=== PATIENT | male | born 1940 | race Caucasian/White ===

== ENCOUNTER 2019-10-16 00:04 | Inpatient (IN) | payer MEDICARE, OTHER ==
[~2019-10-16] VITALS: Ht 175.3 cm; Wt 76.3 kg
[~2019-10-16 00:04] MED LIST: ADVAIR 100-501 EACH INH; ASPIRIN EC325 MG PO; CRESTOR10 MG PO; METOPROLOL SUCC25 MG PO; OMEPRAZOLE20 MG PO; PROVENTIL HFA6.7 GM INH; SUDAFED 12 HOU120 MG PO
--- OUTSIDE RECORDS SUMMARY | 2019-10-16 00:08 | XMS ---
PreManage Notification: ROBBIE LARRY Security Code Clerk Events No recent Security Events currently on file CRITERIA MET - 6 ED Visits in 6 Months CARE PROVIDERS Matias Muñoz MD Primary Care Current PHONE: Unknown ormichele Case or Setter Helper Current PHONE: Unknown Radha has no Care Guidelines for this patient. EShannan VISIT COUNT (12 MO.) [facility] [address] [place] [address] ED 1 MEGAN Roper TOTAL 6 NOTE: Visits indicate total known visits. ED/UCC VISIT TRACKING (12 MO.) 10/16/2019 00:05 MEGAN Briseno TYPE: Emergency COMPLAINT: - HEADACHE/BALANCE ISSUES 08/11/2019 00:36 [facility] TYPE: Emergency DIAGNOSES: - Bradycardia, unspecified - Dizziness - Difficulty in walking, not elsewhere classified - Ataxia, unspecified - Weakness - Hypertension - Dizziness and giddiness 05/30/2019 21:03 [facility] TYPE: Emergency DIAGNOSES: - Paroxysmal tachycardia, unspecified - Acute kidney failure, unspecified - Shortness of Breath 05/29/2019 11:48 [facility] TYPE: Emergency DIAGNOSES: - Hypotension - Other specified postprocedural states - Abnormal levels of other serum enzymes - Polycythemia vera - Other fatigue - Tachycardia - Prsnl hx of TIA (TIA), and cereb infrc w/o resid deficits - Mixed hyperlipidemia - Personal history of other specified conditions - Essential (primary) hypertension - Athscl heart disease of [place] coronary artery w/o ang pctrs - Presence of aortocoronary bypass graft 05/28/2019 12:41 [facility] TYPE: Emergency DIAGNOSES: - Tachycardia - Acute kidney failure, unspecified - Hypotension - Supraventricular tachycardia 05/16/2019 12:11 Located within [facility] Oswaldo CARO TYPE: Emergency DIAGNOSES: - Slurred Speech - Dissection of vertebral artery - Facial weakness - Aneurysm of carotid artery - Cerebral infarction, unspecified - Facial Droop INPATIENT VISIT TRACKING (12 MO.) 05/30/2019 21:03 [facility] Ly[facility]ov CARO TYPE: Internal Medicine DIAGNOSES: - Tachycardia, unspecified - Acute kidney failure, unspecified - Atherosclerosis of CABG w/o angina pectoris - Paroxysmal tachycardia, unspecified [email or web address]
[2019-10-16] MEDS ORDERED: COZAAR50 MG PO (00:40)
[2019-10-16] MEDS ORDERED: LOPRESSOR HCT1 EAC1 PO (00:41)
[2019-10-16] MEDS ORDERED: EZETIMIBE10 MG PO (00:41)
[2019-10-16] MEDS ORDERED: CLOPIDOGREL75 MG PO (00:42)
[2019-10-16] MEDS ORDERED: ACID CONTROL150 MG PO (11:20)
--- NOTE | 2019-10-16 13:05 | EKG ---
[facility] [address] [facility] [place] [address] Signed Sinus bradycardia with 1st degree AV block Incomplete right bundle branch block Borderline ECG No previous ECGs available Confirmed by GIRISH SHAIKH DO ([id number]) on 10/16/2019 1:05:41 PM Electronically Signed By: GIRISH SHAIKH DO 10/16/19 1305 PATIENT NAME: ROBBIE LARRY Electrocardiogram DATE OF : 40 PHYSICIAN: GIRISH SHAIKH DO REPORT #: [id number] REPORT IS CONFIDENTIAL AND NOT TO BE RELEASED WITHOUT AUTHORIZATION
[2019-10-23] MEDS ORDERED: AMLODIPINE BESYL5 MG PO (13:46)
[2019-10-23] MEDS ORDERED: ZETIA10 MG PO (13:46)
[2019-10-23] MEDS ORDERED: ASPIRIN EC81 MG PO (13:47)
[2019-10-23] MEDS ORDERED: LOSARTAN POTAS100 MG PO (13:47)
[2019-10-23] MEDS ORDERED: DOK PLUS TABLE1 EACH PO (13:48)
[2019-10-23] MEDS ORDERED: HYDROCHLOROTHIA25 MG PO (13:48)
== END 2019-10-24 09:10 | DRG 66 ==
LOC: ED 00:04 → MS 00:06
PROVIDERS: ADMIT Student in an Organized Health Care Education/Training Program
DX: I63.9 Cerebral infarction, unspecified (principal); R27.0 Ataxia, unspecified; G46.3 Brain stem stroke syndrome; K21.9 Gastro-esophageal reflux disease without esophagitis; H51.22 Internuclear ophthalmoplegia, left eye; R29.700 NIHSS score 0; I10 Essential (primary) hypertension; E78.5 Hyperlipidemia, unspecified; R73.03 Prediabetes; I70.208 Unspecified atherosclerosis of native arteries of extremities, other extremity; R42 Dizziness and giddiness; H53.2 Diplopia; Z79.02 Long term (current) use of antithrombotics/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; Z88.0 Allergy status to penicillin; Z79.899 Other long term (current) drug therapy
CPT/HCPCS: 36415; 70450; 70496; 70498; 70551; 80048; 80053; 80061; 81001; 83036; 83735; 84484; 85025; 92526; 92610; 93005; 93010; 93306; 94667; 94668; 94762; 96361; 96374; 96375; 97110; 97112; 97163; 97166; 97530; 97535; 99285-25; J1200; J1650; J1885; J2060; J2765; J7040; J7121; Q0161; Q9967

== ENCOUNTER 2020-03-17 19:12 | Emergency (ER) | payer MEDICARE, OTHER ==
[~2020-03-17] VITALS: Ht 175.3 cm; Wt 76.3 kg
[~2020-03-17 19:12] MED LIST changes: +ACID CONTROL150 MG PO; +AMLODIPINE BESYL5 MG PO; +ASPIRIN EC81 MG PO; +CLOPIDOGREL75 MG PO; +COZAAR50 MG PO; +DOK PLUS TABLE1 EACH PO; +EZETIMIBE10 MG PO; +HYDROCHLOROTHIA25 MG PO; +LOPRESSOR HCT1 EAC1 PO; +LOSARTAN POTAS100 MG PO; +ZETIA10 MG PO
--- OUTSIDE RECORDS SUMMARY | 2020-03-17 19:14 | XMS ---
PreManage Notification: ROBBIE LARRY Security Dress Marker Events No recent Security Events currently on file CRITERIA MET - [facility] - Has Care Guidelines CARE PROVIDERS ERIKA BOO Internal Medicine: Pulmonary Disease 10/16/2019-Current PHONE: Unknown Radha has no Care Guidelines for this patient. Care History Medical/Surgical 10/16/2019 [facility] Patient admitted, has follow up with Dr. Meehan on 10/22/2019. 10/16/2019 [facility] - Patient is currently established with [facility]. If patient is seen in the ED during business hours. Please contact CHWs at [facility]. Care Recommendation: If this patient has had 5 or more Emergency Department visits in the last 12 months.\T\nbsp; Patient will require education on the scope and purpose of the ED as an acute care provider not a Primary Care Provider and should not be utilized for chronic conditions.\T\nbsp; These are guidelines and the provider should exercise clinical judgment when providing care. E.D. VISIT COUNT (12 MO.) [address] [place], [place] [address] 1 [facility] ED 2 MEGAN Ospina TOTAL 8 NOTE: Visits indicate total known visits. ED/UCC VISIT TRACKING (12 MO.) 03/17/2020 19:13 MEGAN Briseno TYPE: Emergency COMPLAINT: - HIGH BP 12/23/2019 16:15 [facility] TYPE: Emergency DIAGNOSES: 0. EMS DIZZINESS 10/16/2019 00:05 MEGAN Briseno TYPE: Emergency COMPLAINT: - HEADACHE/BALANCE ISSUES 08/11/2019 00:36 [facility] TYPE: Emergency DIAGNOSES: - Bradycardia, unspecified - Dizziness - Difficulty in walking, not elsewhere classified - Personal history of transient ischemic attack (TIA), and cere - Ataxia, unspecified - Weakness - Hypertension - Dizziness and giddiness - Hyperlipidemia, unspecified 05/30/2019 21:03 [facility] TYPE: Emergency DIAGNOSES: - Paroxysmal tachycardia, unspecified - Acute kidney failure, unspecified - Shortness of Breath 05/29/2019 11:48 [facility] TYPE: Emergency DIAGNOSES: - Hypotension - Other specified postprocedural states - Abnormal levels of other serum enzymes - Polycythemia vera - Other fatigue - Tachycardia - Personal history of transient ischemic attack (TIA), and cere - Mixed hyperlipidemia - Personal history of other specified conditions - Essential (primary) hypertension - Atherosclerotic heart disease of [place] coronary artery witho - Presence of aortocoronary bypass graft [facility]2019 [facility] DIAGNOSES: - Tachycardia - Acute kidney failure, unspecified - Hypotension - Supraventricular tachycardia 05/16/2019 12:11 [facility] Oswaldo CARO TYPE: Emergency DIAGNOSES: - Slurred Speech - Dissection of vertebral artery - Facial weakness - Aneurysm of carotid artery - Cerebral infarction, unspecified - Facial Droop INPATIENT VISIT TRACKING (12 MO.) 11/07/2019 13:12 [facility] TYPE: Surgery DIAGNOSES: 0. LAPAROSCOPIC G TUBE PLACEMENT CPT UNK FAILURE TO TH 0. 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 - Essential (primary) hypertension - Prediabetes - Ataxia, unspecified - Diplopia - Unspecified atherosclerosis of [place] arteries of extremities - Prediabetes - NIHSS score 0 - alf (current) use of antithrombotics/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 - Hyperlipidemia, unspecified - Hyperlipidemia, unspecified - Essential (primary) hypertension - Cerebral infarction, unspecified - NIHSS score 0 - Allergy status to penicillin - Brain stem stroke syndrome - Other retirement (current) drug therapy - Dizziness and giddiness - Allergy status to penicillin - Internuclear ophthalmoplegia, left eye - Brain stem stroke syndrome - Dizziness and giddiness 05/30/2019 21:03 [facility] Valerie CARO TYPE: Internal Medicine DIAGNOSES: - Tachycardia, unspecified - Acute kidney failure, unspecified - Atherosclerosis of coronary artery bypass graft(s) without an - Paroxysmal tachycardia, unspecified [email or web address]
[2020-03-17] MEDS ORDERED: METOPROLOL SUCC25 MG PO (19:52)
--- NOTE | 2020-03-18 07:15 | EKG ---
[facility] [address] [facility] [place] [address] Signed Sinus bradycardia with 1st degree AV block with premature atrial complexes Incomplete right bundle branch block Borderline ECG When compared with ECG of 16-OCT-2019 00:18, premature atrial complexes are now present Confirmed by BERNARD CORDON MD ([id number]) on 03/18/2020 7:15:09 AM Electronically Signed By: BERNARD CORDON MD 03/18/20 0715 PATIENT NAME: ROBBIE LARRY Electrocardiogram DATE OF : 40 PHYSICIAN: BERNARD CORDON MD REPORT #: [id number] REPORT IS CONFIDENTIAL AND NOT TO BE RELEASED WITHOUT AUTHORIZATION
== END 2020-03-17 22:08 | disposition home or self-care (01) ==
LOC: ED 19:12
DX: I10 Essential (primary) hypertension (principal); Z86.73 Personal history of transient ischemic attack (TIA), and cerebral infarction without residual deficits; Z88.0 Allergy status to penicillin; Z79.899 Other long term (current) drug therapy
CPT/HCPCS: 71045; 80053; 83735; 84484; 85025; 85610; 93005; 93010; 99284-25

== ENCOUNTER 2020-05-18 20:39 | Inpatient (IN) | payer MEDICARE, OTHER ==
[~2020-05-18] VITALS: Ht 175.3 cm; Wt 73.8 kg
--- NOTE | ~2020-05-18 | DS ---
[facility] [address], [place] [address] Draft ADMISSION DATE: 05/20/2020 DISCHARGE DATE: 05/21/2020 REASON FOR ADMISSION: Food obstruction of esophagus, dysphagia. HISTORY OF PRESENT ILLNESS: This 80-year-old white man suffered a stroke in the past year and underwent several months of rehab in [place], [place]. 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 He has a distant history of coronary artery bypass grafting as well as bilateral carotid endarterectomy in the past. His debility from the stroke was significant. He did have a PEG tube for enteral nutrition while in rehab. This was ultimately removed. The patient lives alone in [facility]; his is in a care facility due to advanced dementia, but he is well looked after by his son. The night before admission, he was eating, a TV dinner, mashed potatoes and chicken, and felt that the chicken was stuck. He tried to burp several times to bring the chicken out, but felt there was still some residual food in the esophagus. He presented to the emergency room, was evaluated by Dr. Rockwell approximately 8:40 p.m. He had coughed up a fair amount of phlegm, but did not have any hypersalivation. He was given a trial of a small amount of bread to eat, which he felt was stuck. I was then called and he was directly admitted to the hospital for further evaluation and care. As the patient did not have hypersalivation or distress, he was maintained primarily with IV hydration to allow for natural passage if possible. Notably, he had no prior complaints of dysphagia or reflux problems and no family history of esophageal cancer. He was admitted for further evaluation and care. PERTINENT PHYSICAL EXAM: GENERAL: Pleasant white man, who looks to be alert and oriented. He is not in distress. VITAL SIGNS: Temperature is 97.7, pulse 66, respirations 16, blood pressure 126/66, O2 saturations 95% on room air. NECK: Showed no thyromegaly or cervical adenopathy. There is no crepitus. Trachea is midline. There is no adenopathy. No hoarseness. CHEST: Shows normal respiratory excursion without tachypnea. He had a well-healed sternotomy incision. ABDOMEN: Soft and flat, easily palpable without mass. There is a small incision in left upper quadrant from prior gastrostomy tube. PATIENT NAME: ROBBIE LARRY DISCHARGE SUMMARY DATE OF : 40 REPORT #: [id number] PHYSICIAN: GERBER MENDOZA MD PCP: KI HERNANDEZ MD REPORT IS CONFIDENTIAL AND NOT TO BE RELEASED WITHOUT AUTHORIZATION [facility] [address], [place] [address] Draft LABORATORY DATA: White count was 6.1, hematocrit of 49.6, platelets 218,000. Chem profile normal. Creatinine slightly elevated 1.16. Liver enzymes normal. Albumin 4.2. Chest x-ray was normal. Sternotomy, sternal wires were noted to be of normal configuration. HOSPITAL COURSE: He was maintained with intravenous hydration and evaluated, and considered appropriate for upper endoscopy to assess if there was residual foreign body and if there was a neoplasm or stricture accounting for it. Upper endoscopy was performed, which in fact did show a hiatal hernia, but no other findings, specifically no stricture, no neoplasm, no Hernández's epithelium, and no findings to suggest eosinophilic esophagitis per se, though there was mild serration of the mid esophagus. Biopsies are pending. He was advanced to a liquid diet, which he tolerated well and a full liquid diet, which he also tolerated, but wished to have a turkey sandwich late in the evening. This was allowed and he had recurrent symptoms quite markedly. This included a feeling sensation of food being stuck in the region of the suprasternal notch area. He did not regurgitate any food, but had a residual sensation of possible retained food. With time, this passed without problem and with hydration. A video esophagram was performed the following morning, which did not show a stricture and did not show dysmotility per se. He was once again started on a full liquid diet, which he tolerated well. He was started on Protonix PPI medication as a hiatal hernia was noted at time of operation despite no stigmata of stricture proper. It is possible that he has a combination of reflux related esophageal spasm with underlying debility related to his medullary cerebrovascular accident in the past year. The possibility of the eosinophilic esophagitis contribute to his problem remains possible as the pathology is not yet known from biopsies. He was discharged to home to maintain a mechanical soft diet and avoid strictly of meat and bread for the time being. I will see him back in the office in about 3-4 weeks. At that point, we may initiate bread and meat and limited amounts assessing his clinical progress and tolerance of them. By then, reflux-related spasm will have had time to be controlled most likely with his PPI use. DISCHARGE MEDICATIONS: 1. Pantoprazole (Protonix) 40 mg p.o. daily. 2. Plavix 75 mg p.o. daily. 3. Zetia 10 mg p.o. at bedtime. 4. Aspirin enteric-coated 81 mg p.o. daily. 5. Metoprolol 25 mg p.o. daily. PATIENT NAME: ROBBIE LARRY DISCHARGE SUMMARY DATE OF : 40 REPORT #: [id number] PHYSICIAN: GERBER MENDOZA MD PCP: KI HERNANDEZ MD REPORT IS CONFIDENTIAL AND NOT TO BE RELEASED WITHOUT AUTHORIZATION [address] [address] Draft 6. Losartan 50 mg p.o. daily. 7. Fluticasone nasal allergy release spray as needed. DISCHARGE DIAGNOSES: 1. Food impaction of the esophagus without certain underlying etiology; no evidence of stricture, no sign of dysmotility on video esophagram, status post upper endoscopy with biopsy. 2. Cerebrovascular accident in September of 2019 including medullary focus of cerebrovascular accident, requiring rehabilitation at [place], [place]. 3. History of percutaneous endoscopic gastrostomy tube during convalescence (now removed). 4. Hypertension. 5. History of coronary artery bypass grafting. 6. History of bilateral carotid endarterectomy. 7. Hypertension. MD MINESH Ayobu/MODL /[id number] cc: Ki Hernandez MD Copies: KI HERNANDEZ MD ~ PATIENT NAME: ROBBIE LARRY DISCHARGE SUMMARY DATE OF : 40 REPORT #: [id number] PHYSICIAN: GERBER MENDOZA MD PCP: KI HERNANDEZ MD REPORT IS CONFIDENTIAL AND NOT TO BE RELEASED WITHOUT AUTHORIZATION
--- OUTSIDE RECORDS SUMMARY | ~2020-05-18 | XMS | Encounter Summary ---
Demographics + + + | Address | [address] | | | [place] [address] | + + + | Home Phone | | + + + | Preferred Language | Unknown | + + + | Marital Status | | + + + | Pentecostalism Affiliation | 1041 | + + + | Race | White | + + + | Ethnic Group | Not or | + + + Author + + + | Author | [facility] | | | and [place] | + + + | Organization | [facility] | | | and [place] | + + + | Address | Unknown | + + + | Phone | Unavailable | + + + Support + + + + + | Name | Relationship | Address | Phone | + + + + + | Tera Mccarthy | ECON | [place], [place] | | | | | [address] | | + + + + + | Alicia Mccarthy | ECON | [address] | | | | | [place] [address] | | + + + + + Care Team Providers + +------+ + | Care Hand Woven Carpet And Rug Mender Name | Role | Phone | + +------+ + | Brittany Meehan MD | PCP | | + +------+ + Reason for Visit +--------+--------+ + | Reason | Onset | Comments | | | Date | | +--------+--------+ + | Other | 05/09/ | Pt wanted to discuss medications | | | 2019 | | +--------+--------+ + Encounter Details +--------+ + + + + | Date | Type | Department | Care Team | Description | +--------+ + + + + | 05/09/ | Telephone | [facility] | Socorro Toney | Other (Pt wanted to | | 2019 | | CARDIOLOGY ANNA [place], Civilian Jail Officer | discuss medications | | | | [address] | | ) | | | | [place] | | | | | | [address] | | | | | | [phone] | | | +--------+ + + + + Social History + +-------+ +--------+------+ | Tobacco Use | Types | Packs/Day | Years | Date | | | | | Used | | + +-------+ +--------+------+ | Never Smoker | | | | | + +-------+ +--------+------+ + +------+---+---+ | Smokeless Tobacco: | Chew | | | | Former User | | | | + +------+---+---+ + + +---------+ + | Alcohol Use | Drinks/Week | oz/Week | Comments | + + +---------+ + | Not Currently | | | Alcoholic | | | | | Drinks/day: | | | | | occasionally | + + +---------+ + + + + | Sex Assigned at | Date Recorded | | | | + + + | Not on file | | + + + documented as of this encounter Functional Status + + + + | Functional Status | Response | Date of Assessment | + + + + | Are you deaf or do you have serious | No | 05/30/2019 | | difficulty hearing? | | | + + + + | Are you blind or do you have serious | No | 05/30/2019 | | difficulty seeing, even when wearing | | | | glasses? | | | + + + + | Do you have serious difficulty walking or | No | 05/30/2019 | | climbing stairs? (5 years old or older) | | | + + + + | Do you have difficulty dressing or bathing? | No | 05/30/2019 | | (5 years old or older) | | | + + + + | Because of a physical, mental, or emotional | No | 05/30/2019 | | condition, do you have difficulty doing | | | | errands alone such as visiting a doctor's | | | | office or shopping? [15 years old or | | | | older)] | | | + + + + + + + + | Cognitive Status | Response | Date of Assessment | + + + + | Because of a physical, mental, or emotional | No | 05/30/2019 | | condition, do you have serious difficulty | | | | concentrating, remembering, or making | | | | decisions? (5 years old or older) | | | + + + + documented as of this encounter Miscellaneous Notes Telephone Encounter - Socorro Toney, Civilian Jail Officer - 05/09/2020 10:[address] rodrigo that he is severely dizzy. He cannot hardly walk strait though his house sometimes because his dizziness is so bad. Pt denies any other symptoms of fever, cough, SOB, chest pains, congestion, palpitations. He said the only thing that is bugging him is the dizziness. Pt wanted to go over the medications and maybe have them adjusted if possible. Pt recently suffered a stroke and was unable to go take his BP for me at the time he was on the phone. Pt is wondering if someone like Connie Varela could call him and tell him what he should do bec ause Dr Yu is currently unavailable. I offered to schedule an apt for pend and the next opening is in Jun. Pt wanted to try [facility], and the next opening was not until late may. Pt is hoping to talk to Connie Varela over the phone instead of waiting for an apt. Pt had his medication bottles, and we went through his whole list. Medications are now accurate in the chart. Please advise. Thank you! (message sent to Connie Varela) JDW:RADIATOR MECHANIC-AAMA. [facility] umented in this encounter Plan of Treatment +--------+---------+ + + + | Date | Type | Specialty | Care Team | Description | +--------+---------+ + + + | 06/25/ | Office | Cardiology | Connie Alvarez | | | 2019 | Visit | | MICHAEL Varela [address] | | | | | | [address] | | | | | | [place] [address] | | | | | | [phone] | | | | | | | | +--------+---------+ + + + documented as of this encounter Visit Diagnoses Not on filedocumented in this encounter"
--- OUTSIDE RECORDS SUMMARY | ~2020-05-18 | XMS | Encounter Summary ---
Demographics + + + | Address | [address] | | | [place] [address] | + + + | Home Phone | | + + + | Preferred Language | Unknown | + + + | Marital Status | | + + + | Alevism Affiliation | 1041 | + + + | Race | White | + + + | Ethnic Group | Not or | + + + Author + + + | Author | [facility] | | | and [place] | + + + | Organization | [facility] | | | and [place] | + + + | Address | Unknown | + + + | Phone | Unavailable | + + + Support + + + + + | Name | Relationship | Address | Phone | + + + + + | Tera Mccarthy | ECON | [place], [place] | | | | | [address] | | + + + + + | Alicia Mccarthy | ECON | [address] | | | | | [place] [address] | | + + + + + Care Team Providers + +------+ + | Care Evaporator Supervisor Name | Role | Phone | + +------+ + PCP | Unavailable | + +------+ + Encounter Details +--------+ + + + + | Date | Type | Department | Care Team | Description | +--------+ + + + + | 07/22/ | Hospital | [facility] | Alexis Rai, | Cough | | 2008 | Encounter | CONVERSION DEP [address] | MD [address] | | | | [address] | [facility] [address] | | | | | [place], [place] | [place] [address] | | | | | [address] | [phone] | | | | | [phone] | | | +--------+ + + + + Social History + +-------+ +--------+------+ | Tobacco Use | Types | Packs/Day | Years | Date | | | | | Used | | + +-------+ +--------+------+ | Never Assessed | | | | | + +-------+ +--------+------+ + + + | Sex Assigned at | Date Recorded | | | | + + + | Not on file | | + + + documented as of this encounter Plan of Treatment +--------+---------+ + + + | Date | Type | Specialty | Care Team | Description | +--------+---------+ + + + | 06/25/ | Office | Cardiology | Connie Alvarez | | | 2019 | Visit | | MICHAEL Varela [address] | | | | | | [address] | | | | | | [place] [address] | | | | | | [phone] | | | | | | | | +--------+---------+ + + + documented as of this encounter Procedures + +--------+ + + + | Procedure Name | Priori | Date/Time | Associated Diagnosis | Comments | | | ty | | | | + +--------+ + + + | XR CHEST 2 VIEWS | Routin | 07/22/2009 | | Results for this | | | e | 12:31 PM | | procedure are in the | | | | PDT | | results section. | + +--------+ + + + documented in this encounter Results XR Chest 2 Vws (07/22/2009 12:31 PM PDT) + + | Specimen | + + | | + + + + + | Narrative | Performed At | + + + | [id number] | | | Page 1 RADIOLOGY | | | / | | | O/P [facility] | | | NAME: [place] [address] | | | | | | | | | DATE OF : 1940 ORDER NUMBER: [id number] | | | EXAM DATE/TIME: 07/22/2009 12:10 P ORDERING PHYSICIAN: CECELIA | | | ALEXIS ORDER DETAIL: 7000 / / GIORGIO EXAM DESCRIPTION: XR CHEST 2 | | | VIEW | | | | | | CHEST TWO VIEWS 07/22/2009 HISTORY Cough. COMPARISON Study | | | of 07/05/2009. FINDINGS The life support devices have been | | | removed and there is no evidence of a pneumothorax. The pleural | | | effusions have markedly improved. There is only a minimal amount of | | | residual pleural fluid noted on the lateral view. The bibasilar | | | atelectasis has resolved and there is minimal scarring in the left | | | lung base. The heart is normal in size and the sternal wires appear | | | intact. IMPRESSION Near-complete resolution of bibasilar | | | atelectasis and small pleural effusions with some residual scarring | | | in the left lung base. Read by KYLE JOSEPH MD | | | 07/22/2009 01:16 P Electronically Signed by KYLE JOSEPH MD | | | 07/23/2009 07:33 A P | | | 04:43 A [facility]/[id number]/ cc: MD KYLE SHAFFER | | | MD REECE JOSEPH MD | | + + + + + | Procedure Note | + + | Alfred Landry Conversion - 05/21/2019 2:58 AM PDT | | [id number] Page 1 | | RADIOLOGY / | | O/P | | [facility] NAME: [address] | | [place] [address] | | | | DATE OF : 1940 | | | | ORDER NUMBER: [id number] | | EXAM DATE/TIME: 07/22/2009 12:10 P | | ORDERING PHYSICIAN: ALEXIS RAI | | ORDER DETAIL: 7000 / / GIORGIO | | EXAM DESCRIPTION: XR CHEST 2 VIEW | | | | CHEST TWO VIEWS 07/22/2009 | | | | HISTORY | | Cough. | | | | COMPARISON | | Study of 07/05/2009. | | | | FINDINGS | | The life support devices have been removed and there is no evidence of a | | pneumothorax. The pleural effusions have markedly improved. There is | | only a minimal amount of residual pleural fluid noted on the lateral | | view. The bibasilar atelectasis has resolved and there is minimal | | scarring in the left lung base. The heart is normal in size and the | | sternal wires appear intact. | | | | IMPRESSION | | Near-complete resolution of bibasilar atelectasis and small pleural | | effusions with some residual scarring in the left lung base. | | | | | | Read by | | KYLE JOSEPH MD 07/22/2009 01:16 P | | Electronically Signed by | | KYLE JOSEPH MD 07/23/2009 07:33 A | | | | P | | A | | [facility]/[id number]/ | | cc: ALEXIS RAI MD | | KYLE JOSEPH MD | | REECE ELIZONDO MD | + + documented in this encounter Visit Diagnoses + + | Diagnosis | + + | Cough | + + documented in this encounter"
--- OUTSIDE RECORDS SUMMARY | ~2020-05-18 | XMS | Encounter Summary ---
Demographics + + + | Address | [address] | | | [place] [address] | + + + | Home Phone | | + + + | Preferred Language | Unknown | + + + | Marital Status | | + + + | Gnosticist Affiliation | 1041 | + + + | Race | White | + + + | Ethnic Group | Not or | + + + Author + + + | Author | [facility] | | | and [place] | + + + | Organization | [facility] | | | and [place] | + + + | Address | Unknown | + + + | Phone | Unavailable | + + + Support + + + + + | Name | Relationship | Address | Phone | + + + + + | Tera Mccarthy | ECON | [place] | | | | | [address] | | + + + + + | Alicia Mccarthy | ECON | [address] | | | | | [place] [address] | | + + + + + Care Team Providers + +------+ + | Care Psychologist Chief Name | Role | Phone | + +------+ + | Brittany Meehan MD | PCP | | + +------+ + Reason for Visit Auth/Cert +--------+--------+ + + + + | Status | Reason | Specialty | Diagnoses / | Referred By | Referred To | | | | | Procedures | Contact | Contact | +--------+--------+ + + + + | | | | Diagnoses | | Maryjo, | | | | | | | Cornel | | | | | Supraventric | | MD Viktor | | | | | vanessa | | [address] | | | | | jamal | | [address] | | | | | ([facility]) | | [place] | | | | | Procedures | | [id number] Phone: | | | | | CV EP | | [phone] | | | | | ABLATION SVT | | Fax: | | | | | | | [phone] | +--------+--------+ + + + + Encounter Details +--------+ + + + + | Date | Type | Department | Care Team | Description | +--------+ + + + + | 10/11/ | Anesthesia | [facility] | Marcelo Camacho MD | | | 2019 | Event | [facility] | [address] | | | | | LAB [address] | [place] [address] | | | | | [place], [place] | [phone] | | | | | [address] | | | | | | [phone] | | | +--------+ + + + + Anesthesia Record + + + + + | Procedure Name | Responsible | Anesthesia Start | Anesthesia Stop Time | | | Anesthesiologist | Time | | + + + + + | CV EP ABLATION SVT | Marcelo Camacho MD | 10/11/19 1416 | 10/11/19 1540 | | (N/A Heart) | | | | + + + + + +----+---+ + + | Da | T | Event | Comment | | te | i | | | | | m | | | | | e | | | +----+---+ + + | 01 | 1 | | | | /1 | 3 | | | | 6/ | 5 | | | | 20 | 4 | | | | 20 | | | | +----+---+ + + | | 1 | An Start | Reassessment prior to anesthesia induction/procedure. | | | 4 | | | | | 1 | | | | | 6 | | | +----+---+ + + | | 1 | First | | | | 4 | Inc/Proc St | | | | 2 | | | | | 1 | | | +----+---+ + + | | 1 | Quick Note | Procedure starts No x per Dr. Meraz | | | 4 | | | | | 2 | | | | | 1 | | | +----+---+ + + | | 1 | An Stop | Patient handed off to recovery nurse. | | | 4 | | | | | 0 | | | +----+---+ + + | | 1 | an stop | | | | 5 | data | | | | 4 | | | | | 2 | | | +----+---+ + + +------+ | Meds | +------+ + +--------+ | Name | Total | + +--------+ | midazolam 2 mg/mL | 2 mg | + +--------+ | atropine 0.1mg/mL | 1 mg | + +--------+ | isoproterenol (ISUPREL) 4 mcg/mL | 52 mcg | | in sodium chloride 0.9% 250 mL | | | infusion | | + +--------+ | metoprolol tartrate (LOPRESSOR) | 5 mg | | injection | | + +--------+ | sodium chloride 0.9% (NS) | 400 mL | | infusion | | + +--------+ + + | Name | + + | N2O Flow Rate (L/Min) | + + | O2 Flow Rate (L/Min) | + + | Insp O2 | + + | Exp N2O | + + | Air Flow Rate (L/Min) | + + + + | No blood administrations on file. | + + +--------+ + + + | Type | Details | Placement | Removal | +--------+ + + + | Periph | 10/11/19; 1346; Left; Anterior | 10/11/19 1346 by | 10/12/19 1010 by | | sherie | (palmar), Proximal; Forearm; | Rubén Gutierrez, | Bhanu Lara RN | | IV | [id number] catheter system; | RN | | | | 20 gauge; Hematology; no longer | | | | | indicated, catheter/device | | | | | intact, removed per | | | | | policy/procedure; 10/12/19; 1010 | | | +--------+ + + + | Venous | 10/11/19; 1423; 7 Fr.; Right; | 10/11/19 1423 by | 10/11/19 1534 by | | | Femoral; 10/11/19; 1534; Per | Maury Mendoza RN | Maury Mendoza RN | | Sheath | order; No complications | | | +--------+ + + + | Venous | 10/11/19; 1423; 6 Fr.; Left; | 10/11/19 1423 by | 10/11/19 1535 by | | | Femoral; Injectable; 10/11/19; | Maury Mendoza RN | Maury Mendoza RN | | Sheath | 1535; Per order; No complications | | | +--------+ + + + documented in this encounter Social History + +-------+ +--------+------+ | Tobacco [...] + + documented as of this encounter [place] Notes Anesthesia Postprocedure Evaluation - Marcelo Camacho MD - 10/11/2019 3:41 PM PST ANESTHESIA POSTANESTHESIA EVALUATION Simon Mccarthy 79 y.o. male 1940 [id number] Procedure(s) CV EP ABLATION SVT (N/A Heart) Cooperates? Yes Mental Status Performs simple tasks. Respiratory Satisfactory - Airway patent (self maintained). Cardiovascular Satisfactory - Blood pressure and heart rate acceptable Temperature Satisfactory Pain Satisfactory N/V Control Satisfactory Hydration Satisfactory - No signs of dehydration Adverse Events ADVERSE EVENTS: No adverse events Vitals Value Taken Time Temp Pulse 95 Resp 16 BP 149/78 Arterial Line BP Arterial Line BP 2 SpO2 Electronically signed by Doug Scott MD 10/11/2019 3:41 PM [facility] 3:4 2 PM PSTAnesthesia Preprocedure Evaluation - Marcelo Camacho MD - 10/11/2019 1:51 PM PSTFormatt ing of this note might be different from the original. ANESTHESIA PREANESTHESIA EVALUATION Simon Mccarthy 79 y.o. male 1940 [id number] Procedure(s): CV EP ABLATION SVT (N/A ) Medical,anesthesia, drug, allergy histories reviewed, NPO status verified. (-) perioperative beta-dixie/statin not given/taken, Review of Systems / Med History Anesthesia History No anesthesia complications except where noted below. (+) previous surgery or anesthesia. Family Anesthesia History Family Anesthesia Negative except where noted below. Cardiovascular Exercise tolerance >4 METS (+) history of heart murmur (+) hypertension (+) Dysrhythmias: (+) coronary artery disease (S/P CABG , doing well). (+) valvular problems/murmurs (+) PV D: . Pulmonary (+) asthma. Gastrointestinal/Hepatic (+) hypercholesterolemia. Renal (+) renal/ureteral stones. Endocrine Negative except where noted below. Hematology/Other Negative except where noted below. Neuromuscular Negative except where noted below. (+) CVA. Psychology Negative except where noted below. Physical Exam Airway MP II, TM >3 FB, Mouth opening >2 FB. Neck: full ROM, extends >30 degrees. Jaw protrus ion normal. CV Rhythm regular. Rate normal. (+) murmur. Pulm Clear to auscultation bilaterally. Neuro grossly normal. Anesthesia Plan ASA: 4 Type: MAC. Induction: Local anesthesia and intravenous. Potential problems: Other. Monitors: Standard ASA monitors. Postop Pain Management: Consent statement: Anesthetic plan, alternatives, risks and benefits discussed with patient. backache, drug re action, pain, perioperative CV events, respiratory events Consenting person understands and agrees to proceed. Discussed plan with attending. Electronically Signed by: Doug Scott MD ESi date/time: 10/11/2019 1:51 PM documented in this encount er Miscellaneous Notes Anesthesia Post-op Handoff - Marcelo Camacho MD - 10/11/2019 3:40 PM PSTFormatting of this not e might be different from the original. ANESTHESIA HANDOFF NOTE Simon Mccarthy 79 y.o. male 1940 [id number] CV EP ABLATION SVT (N/A Heart) HANDOFF NOTE Handoff Protocol Used: post-procedure handoff checklist completed The following were completed during the transfer of care: 1. Identification of patient 2. Identification of responsible practitioner (primary service) 3. Discussion of pertinent medical history 4. Discussion of the surgical/procedure course (procedure, reason for surgery, procedure pe rformed) 5. Intraoperative anesthetic management and issues/concerns 6. Expectations/plans for the early post-procedure period 7. Opportunity for questions and acknowledgement of understanding of report from receiving team Patient Location: Phase II Condition: awake Airway/O2: face mask with O2 The significant anesthesia concerns and VS in Epic were reviewed with the receiving team. Doug Scott MD 10/11/2019 3:40 PM [facility] 3:4 1 PM PSTdocumented in this encounter Plan of Treatment +--------+---------+ + + + | Date | Type | Specialty | Care Team | Description | +--------+---------+ + + + | 06/25/ | Office | Cardiology | Connie Alvarez | | | 2019 | Visit | | [address] | | | | | | [address] | | | | | | [place] [address] | | | | | | [phone] | | | | | | | | +--------+---------+ + + + documented as of this encounter Visit Diagnoses Not on filedocumented in this encounter Administered Medications + +--------+ +------+------+------+ | Medication Order | MAR | Action | Dose | Rate | Site | | | Action | Date | | | | + +--------+ +------+------+------+ | atropine 0.1 mg/mL syringe | Given | 10/11/19 | 1 mg | | | | Intravenous, PRN, Starting Sandra | | 20 2:38 | | | | | 10/11/19 at 1438, Anesthesia | | PM PST | | | | | Intra-op | | | | | | + +--------+ +------+------+------+ +---+---+ | | | +---+---+ + + + +---------+ +---+ | isoproterenol (ISUPREL) 4 | Restarte | 10/11/19 | 4 | 60 mL/hr | | | mcg/mL in sodium chloride 0.9% | d | 20 3:28 | mcg/min | | | | 250 mL infusion 0-10 mcg/min | | PM PST | | | | | (0-150 mL/hr), at 0-150 mL/hr, | | | | | | | Intravenous, TITRATED, Starting | | | | | | | Sandra 10/11/19 at 1500, Titration | | | | | | | Instruction: See below, Goal: HR | | | | | | | 60 and greater, Initial dose: 2 | | | | | | | mcg/min, Increase rate by: 1 | | | | | | | mcg/min every 15 minutes., | | | | | | | Decrease rate by: 1 mcg/min every | | | | | | | 15 minutes., *: Titrate drug per | | | | | | | order as tolerated. Titration | | | | | | | may vary based on the patient | | | | | | | | | | | | | | s critical condition. | | | | | | + + + +---------+ +---+ + + +---------+ +---+ | Restarted | 10/11/19 | 4 | 60 mL/hr | | | | 20 3:19 | mcg/min | | | | | PM PST | | | | + + +---------+ +---+ | Rate/Dose Change | 10/11/19 | 4 | 60 mL/hr | | | | 20 3:07 | mcg/min | | | | | PM PST | | | | + + +---------+ +---+ +---+---+ | | | +---+---+ + +-------+ +------+---+---+ | metoprolol tartrate (LOPRESSOR) | Given | 10/11/19 | 5 mg | | | | injection PRN, Starting Sandra | | 20 3:37 | | | | | 10/11/19 at 1537, Anesthesia | | PM PST | | | | | Intra-op | | | | | | + +-------+ +------+---+---+ +---+---+ | | | +---+---+ + +-------+ +------+---+---+ | midazolam (VERSED) 1 mg/mL | Given | 10/11/19 | 2 mg | | | | injection Intravenous, PRN, | | 20 2:16 | | | | | Starting Sandra 10/11/19 at 1416, | | PM PST | | | | | Anesthesia Intra-op | | | | | | + +-------+ +------+---+---+ +---+---+ | | | +---+---+ + +---------+ +---+---+---+ | sodium chloride 0.9% (NS) | New Bag | 10/11/19 | | | | | infusion at 10 mL/hr, | | 20 2:16 | | | | | Intravenous, CONTINUOUS, Starting | | PM PST | | | | | Sandra 10/11/19 at 1345, Pre-op | | | | | | + +---------+ +---+---+---+ +---+---+ | | | +---+---+ documented in this encounter"
--- OUTSIDE RECORDS SUMMARY | ~2020-05-18 | XMS | Encounter Summary ---
Demographics + + + | Address | [address] | | | [place] [address] | + + + | Home Phone | | + + + | Preferred Language | Unknown | + + + | Marital Status | | + + + | Sabianism Affiliation | 1041 | + + + | Race | White | + + + | Ethnic Group | Not or | + + + Author + + + | Author | [facility] | | | and [place] | + + + | Organization | [facility] | | | and [place] | + + + | Address | Unknown | + + + | Phone | Unavailable | + + + Support + + + + + | Name | Relationship | Address | Phone | + + + + + | Tera Mccarthy | ECON | [place], [place] | | | | | [address] | | + + + + + | Alicia Mccarthy | ECON | [address] | | | | | [place] [address] | | + + + + + Care Team Providers + +------+ + | Care Coil Machine Operator Name | Role | Phone | + +------+ + PCP | Unavailable | + +------+ + Encounter Details +--------+ + + + + | Date | Type | Department | Care Team | Description | +--------+ + + + + | 08/24/ | Hospital | [facility] | Viktor Crisostomo | | | 2004 | Encounter | MED CTR GENERIC OP | MD [place] | | | | | CONV DEPT [address] | [place], [place] | | | | | [place], | [address] | | | | | [place] [address] | | | | | | [phone] | | | +--------+ + + + [...] [address] | | | | | | [place] [address] | | | | | | [phone] | | | | | | | | +--------+---------+ + + + documented as of this encounter Visit Diagnoses Not on filedocumented in this encounter"
--- OUTSIDE RECORDS SUMMARY | ~2020-05-18 | XMS | Encounter Summary ---
Demographics + + + | Address | [address] | | | [place] [address] | + + + | Home Phone | | + + + | Preferred Language | Unknown | + + + | Marital Status | | + + + | Evangelical Affiliation | 1041 | + + + | Race | White | + + + | Ethnic Group | Not or | + + + Author + + + | Author | [facility] | | | and [place] | + + + | Organization | [facility] | | | and [place] | + + + | Address | Unknown | + + + | Phone | Unavailable | + + + Support + + + + + | Name | Relationship | Address | Phone | + + + + + | Tera Mccarthy | ECON | [place] | | | | | [address] | | + + + + + | Alicia Mccarthy | ECON | [address] | | | | | [place] [address] | | + + + + + Care Team Providers + +------+ + | Care Finance Analyst Name | Role | Phone | + +------+ + | Matias Muñoz MD | PCP | | + +------+ + Reason for Visit + + + | Reason | Comments | + + + | Follow-up | | + + + Encounter Details +--------+---------+ + + + | Date | Type | Department | Care Team | Description | +--------+---------+ + + + | 07/13/ | Office | [facility] | Lio Mendez, | Bronchiectasis (HCC) | | 2012 | Visit | PULMONARY [address] | MD [address] | (Primary Dx); | | | | [place], | [place], [place] | Chronic cough | | | | [place] [address] | [address] | | | | | [phone] | | | +--------+---------+ + + + Social History + +-------+ +--------+------+ | Tobacco Use | Types | Packs/Day | Years | Date | | | | | Used | | + +-------+ +--------+------+ | Never Smoker | | | | | + +-------+ +--------+------+ + +---+---+---+ | Smokeless Tobacco: | | | | | Former User | | | | + +---+---+---+ + + +---------+ + | Alcohol Use | Drinks/Week | oz/Week | Comments | + + +---------+ + | Yes | | | socially, monthy | + + +---------+ + + + + | Sex Assigned at | Date Recorded | | | | + + + | Not on file | | + + + documented as of this encounter Last Filed Vital Signs + + + + + | Vital Sign | Reading | Time Taken | Comments | + + + + + | Blood Pressure | 122/76 | 07/13/2013 3:22 PM | | | | | PDT | | + + + + + | Pulse | 64 | 07/13/2013 3:22 PM | | | | | PDT | | + + + + + | Temperature | - | - | | + + + + + | Respiratory Rate | - | - | | + + + + + | Oxygen Saturation | 97% | 07/13/2013 3:22 PM | | | | | PDT | | + + + + + | Inhaled Oxygen | - | - | | | Concentration | | | | + + + + + | Weight | 79.8 kg (176 lb) | 07/13/2013 3:22 PM | | | | | PDT | | + + + + + | Height | 175.3 cm (5' 9") | 07/13/2013 3:22 PM | | | | | PDT | | + + + + + | Body Mass Index | 25.99 | 07/13/2013 3:22 PM | | | | | PDT | | + + + + + documented in this encounter Patient Instructions Patient Instructions Lio Mendez MD - 07/13/2013 4:06 PM PDTTrial of azithromycin o delroy 5 days. documented in this encounter Progress Notes Lio Mendez MD - 07/13/2013 3:51 PM PDTFormatting of this note might be different f rom the original. Pulmonary Follow Up 07/13/2013 HPI Simon Mccarthy is a 73 y.o. male patient of Matias Muñoz here today for follow up of chronic cough. It has been 6 weeks since our last clinic appointment. At their last visit, we established a plan to perform a Chest CT. Since the last visit he feels like their symptoms are stable. They have have not had any recent episodes of "bronchitis-like symptoms". To treat their chronic cough they are currently on a regimen of Advair. They do feel like this medication regimen is working for them. They do not report the presence of side effects from the medication(s). Currently they are able to walk many miles at their own pace on level ground. They are not exercising regularly. 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 They are not enrolled in cardiac/ pulmonary rehabilitation or other physical therapy. He does cough chronically, and does produce mucous. The mucous is scant and clear in color. They have not had hemoptysis since our last appointment. He has not been evaluated for nocturnal oxygen. He does not had symptoms of heartburn or reflux. They have not had symptoms of nasal conges tion, runny nose or post nasal drip. The patient reports a prior history of transient improvement of his symptoms following anti biotics. 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 Sinusitis Chronic Renal stone Benign essential hypertension ASHD (arteriosclerotic heart disease) Ventricular pre-excitation Nasal and sinus discharge Sciatica Hyperlipidemia Trigeminy Myalgia s/p lovastatin + meningitis Atherosclerosis Glucose intolerance (impaired glucose tolerance) CAD (coronary artery disease) Bronchiectasis Mild , lower lobes Allergies: Allergies Allergen Reactions Penicillins Medications: Current outpatient prescriptions:albuterol (VENTOLIN HFA) 90 mcg/puff inhaler, Active, Inha le 2 puffs into the lungs every 6 hours as needed., Disp: , Rfl: ; aspirin 325 mg tablet, A ctive, Take 325 mg by mouth Daily., Disp: , Rfl: ; azithromycin (ZITHROMAX) 250 mg tablet, Active, Take 1 tablet by mouth Daily for 5 days. 2 tabs now, then 1 tab daily until gone, Di sp: 6 tablet, Rfl: 0 fluticasone-salmeterol (ADVAIR) 100-50 mcg/puff diskus inhaler, Active, Inhale 1 puff into the lungs Twice Daily., Disp: , Rfl: ; lovastatin (MEVACOR) 10 MG tablet, Active, Take 10 m g by mouth nightly., Disp: , Rfl: ; metoprolol tartrate (LOPRESSOR) 25 mg tablet, Active, T roxana by mouth. Take 1/2 tablet daily, Disp: , Rfl: ; omeprazole (PRILOSEC) 10 mg capsule, A ctive, Take 20 mg by mouth every morning (before breakfast)., Disp: , Rfl: Review of Systems Constitutional: Denies fever, chills, sweats, fatigue or weakness. Sleep: Denies trouble sleeping, excessive snoring, and daytime sleepiness. Eyes: Denies vision change, and eye irritation. ENT: Denies earache, tinnitus, decreased hearing, nosebleeds, sore throat, and hoarseness. Resp: See HPI. CV: Denies neck/chest/jaw pain with exertion, palpitations, lightheadedness, syncope, orth opnea, PND, peripheral edema, and claudication. GI: Denies trouble swallowing, nausea, vomiting, abdominal pain, diarrhea, melena, and he matochezia. Neurologic: Denies frequent headaches, seizures, tremors, numbness or tingling in hands or feet or vertigo. Allergy Denies urticaria or allergic rashes. Objective BP 122/76 | Pulse 64 | Ht 1.753 m (5' 9") | Wt 79.833 kg (176 lb) | BMI 25.99 kg/m2 | SpO2 97% Appearance: Alert, cooperative, no distress, appears stated age Head: Normocephalic, without obvious abnormality, atraumatic Eyes: PERRL, conjunctiva/corneas clear Nose: Nares normal, septum midline, mucosa normal, no drainage or sinus tenderness Throat: Lips, mucosa, and tongue normal; teeth/dentures normal Neck: Supple, symmetrical, no JVD Lungs: No accessory muscle use, breath sounds are clear to auscultation bilaterally, no w heezes, No crackles or rhonchi. No dullness to percussion. Chest Wall: No tenderness or deformity Heart: Regular rate and rhythm, S1, S2 normal, no murmur, rub or gallop Extremities: Extremities normal, atraumatic, no cyanosis, clubbing. none and no edema Skin: Warm and dry Lymph nodes: Cervical and supraclavicular nodes normal Neurologic: Gait normal Data: Chest CT scan(s) was done on 07/13/13. They were reviewed and interpreted in clinic today with the patient . They show small nodular densities with a diffuse pattern. 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 Lastly the patient has bilateral lower lung zone bronchiectasis. Assessment 1. Chronic cough-Simon is a 73-year-old male with a long-standing chronic cough. In the past component of the patient's cough is been thought to be secondary to cough variant asth ma. Today a CT scan of the chest was performed to further investigate potential etiologies. Ev idence of mild by basilar bronchiectasis was noted. The patient's acid reflux is currently well controlled. Given the newly discovered bronchiectasis without purulent sputum production it seems reaso nable to initiate a trial of azithromycin. If his cough symptoms were to decrease one could consider 3 times a week azithromycin for treatment of a chronic cough secondary bronchiecta sis. Told duration the patient's clinic appointment was in excess of 30 minutes. Greater than 5 0% of the time was spent discussing bronchiectasis management. Plan 1. Azithromycin over 5 days. 2. Patient will return for followup on July 27, the same day of his 's followup rory ointment. A decision regarding the use of chronic azithromycin will occur at that time. CC: Matias Muñoz documented in this encounter Plan of Treatment +--------+---------+ + + + | Date | Type | Specialty | Care Team | Description | +--------+---------+ + + + | 06/25/ | Office | Cardiology | Connie Alvarez | | | 2020 | Visit | | [address] | | | | | | [address] | | | | | | [place] [address] | | | | | | [phone] | | | | | | | | +--------+---------+ + + + documented as of this encounter Visit Diagnoses + + | Diagnosis | + + | Bronchiectasis (HCC) - Primary Bronchiectasis without acute exacerbation | + + | Chronic cough Cough | + + documented in this encounter
--- OUTSIDE RECORDS SUMMARY | ~2020-05-18 | XMS | Encounter Summary ---
Demographics + + + | Address | [address] | | | [place] [address] | + + + | Home Phone | | + + + | Preferred Language | Unknown | + + + | Marital Status | | + + + | Hinduism Affiliation | 1041 | + + + | Race | White | + + + | Ethnic Group | Not or | + + + Author + + + | Author | [facility] | | | and [place] | + + + | Organization | [facility] | | | and [place] | + + + | Address | Unknown | + + + | Phone | Unavailable | + + + Support + + + + + | Name | Relationship | Address | Phone | + + + + + | Tera Mccarthy | ECON | [place], [place] | | | | | [address] | | + + + + + | Alicia Mccarthy | ECON | [address] | | | | | [place] [address] | | + + + + + Care Team Providers + +------+ + | Care Disease Case Manager Rn Name | Role | Phone | + +------+ + | Matias Muñzo MD | PCP | | + +------+ + Encounter Details +--------+ + + + + | Date | Type | Department | Care Team | Description | +--------+ + + + + | 06/25/ | Orders Only | [facility] | Nasir Lim, | | | 2014 | | CARDIOLOGY [place] | [address] | | | | | [place] [address] | [place] [address] | | | | | [place], [place] | [phone] | | | | | [address] | | | | | | [phone] | | | +--------+ + + + [...] [address] | | | | | | [place] [address] | | | | | | [phone] | | | | | | | | +--------+---------+ + + + documented as of this encounter Procedures + +--------+ + + + | Procedure Name | Priori | Date/Time | Associated Diagnosis | Comments | | | ty | | | | + +--------+ + + + | VAS CAROTID DUPLEX | Routin | 06/25/2015 | | Results for this | | BILATERAL | e | 11:36 AM | | procedure are in the | | | | PDT | | results section. | + +--------+ + + + documented in this encounter Results VAS Carotid Duplex Bilateral (06/25/2015 11:36 AM PDT) + + | Specimen | + + | | + + + + + | Impressions | Performed At | + + + | 1. Minimal intimal thickening in right internal carotid artery. S/P | | | CEA. 2. Minimal intimal thickening in left internal carotid artery. | | | S/P CEA. | | + + + + + + | Narrative | Performed At | + + + | Patient Name: ROBBIE MCCARTHY Date of : 1940 | | | Performing Physician: Nasir Lim MD, | | | FACC, FACP, FASNC | | | | | | INDICATIONS Bilateral CEA CONCLUSIONS | | | 1. Minimal intimal thickening in right internal carotid artery. S/P | | | CEA. 2. Minimal intimal thickening in left internal carotid artery. | | | S/P CEA. FINDINGS -------- Right CCA: The right common carotid | | | artery is patent and demonstrates mild atherosclerotic plaque in the | | | common carotid artery corresponding with a 1-49% right common carotid | | | stenosis. Right ICA: Minimal intimal thickening in right internal | | | carotid artery. Right ECA: The right external carotid artery is | | | patent with 1-49% stenosis. Right Vertebral: The right vertebral | | | artery demonstrates antegrade flow. Right Subclavian Artery: Doppler | | | window filling within the right subclavian artery waveform suggests | | | 1-19% stenosis. Left CCA: The left common carotid artery | | | demonstrates mild atherosclerotic plaque in the common carotid | | | artery corresponding with 1-49% stenosis Left ICA: Minimal intimal | | | thickening in left internal carotid artery. Left ECA: Minimal intimal | | | thickening in the left external carotid artery. Left Vertebral: The | | | left vertebral artery demonstrates antegrade flow. Left Subclavian | | | Artery: Doppler window filling within the left subclavian artery | | | waveform suggests 1-19% stenosis. MEASUREMENTS | | | CCA AC: 58 deg CCA AC: 49 deg CCA ED: 22.53 cm/s CCA ED: | | | 13.45 cm/s CCA ED: 11.58 cm/s CCA ED: 9.62 cm/s CCA PS: | | | 111.33 cm/s CCA PS: 82.75 cm/s CCA PS: 65.83 cm/s CCA PS: | | | 78.92 cm/s ICA/CCA ED: 0.86 ICA/CCA ED: 1.51 ICA/CCA PS: | | | 0.46 ICA/CCA PS: 0.84 ECA AC: 45 deg ECA AC: 41 deg ECA | | | ED: 11.10 cm/s ECA ED: 13.19 cm/s ECA PS: 63.72 cm/s ECA | | | PS: 90.32 cm/s ICA AC: 55 deg ICA AC: 29 deg ICA AC: 29 | | | deg ICA AC: 54 deg ICA AC: 49 deg ICA AC: 54 deg ICA ED: | | | 19.39 cm/s ICA ED: 20.07 cm/s ICA ED: 17.07 cm/s ICA ED: | | | 20.37 cm/s ICA ED: 9.35 cm/s ICA ED: 10.22 cm/s ICA PS: | | | 52.03 cm/s ICA PS: 59.40 cm/s ICA PS: 47.17 cm/s ICA PS: | | | 70.03 cm/s ICA PS: 24.64 cm/s ICA PS: 51.87 cm/s SUBC PS: | | | 133.79 cm/s SUBC PS: 114.61 cm/s VERT ED: 12.09 cm/s VERT ED: | | | 6.03 cm/s VERT PS: 46.88 cm/s VERT PS: 19.89 cm/s | | | Heating Equipment Repairer: Authenticated by: Nasir Lim MD, FACC, FACP, | | | FASNC Report Date/Time: -- [id number] | | + + + + + | Procedure Note | + + | Frantz, Rad Conversion - 05/17/2019 9:34 PM PDT Patient Name: ROBBIE MCCARTHY | | of : 1940 Performing Physician: Nasir Lim MD, [facility], | | FACP, | | FASNC INDICATIONS--------- | | --Bilateral CEA CONCLUSIONS 1. Minimal intimal thickening in right internal | | carotid artery. S/P CEA.2. Minimal intimal thickening in left internal carotid artery. | | S/P CEA. FINDINGS--------Right CCA: The right common carotid artery is patent and | | demonstrates mild atherosclerotic plaque in the common carotid artery corresponding with | | a 1-49% right common carotid stenosis.Right ICA: Minimal intimal thickening in right | | internal carotid artery.Right ECA: The right external carotid artery is patent with | | 1-49% stenosis.Right Vertebral: The right vertebral artery demonstrates antegrade | | flow.Right Subclavian Artery: Doppler window filling within the right subclavian artery | | waveform suggests 1-19% stenosis.Left CCA: The left common carotid artery | | demonstrates mild atherosclerotic plaque in the common carotid artery corresponding with | | 1-49% stenosisLeft ICA: Minimal intimal thickening in left internal carotid artery.Left | | ECA: Minimal intimal thickening in the left external carotid artery.Left Vertebral: The | | left vertebral artery demonstrates antegrade flow.Left Subclavian Artery: Doppler | | window filling within the left subclavian artery waveform suggests 1-19% stenosis. | | MEASUREMENTS CCA AC: 58 degCCA AC: 49 degCCA ED: 22.53 cm/sCCA ED: | | 13.45 cm/sCCA ED: 11.58 cm/sCCA ED: 9.62 cm/sCCA PS: 111.33 cm/sCCA PS: 82.75 | | cm/sCCA PS: 65.83 cm/sCCA PS: 78.92 cm/Jim/CCA ED: 0.86ICA/CCA ED: 1.51ICA/CCA | | PS: 0.46ICA/CCA PS: 0.84ECA AC: 45 degECA AC: 41 degECA ED: 11.10 cm/sECA ED: | | 13.19 cm/sECA PS: 63.72 cm/sECA PS: 90.32 cm/Jim AC: 55 degICA AC: 29 degICA | | AC: 29 degICA AC: 54 degICA AC: 49 degICA AC: 54 degICA ED: 19.39 cm/Jim ED: | | 20.07 cm/Jim ED: 17.07 cm/Jim ED: 20.37 cm/Jim ED: 9.35 cm/Jim ED: 10.22 | | cm/Jim PS: 52.03 cm/Jim PS: 59.40 cm/Jim PS: 47.17 cm/Jim PS: 70.03 cm/Jim | | PS: 24.64 cm/Jim PS: 51.87 cm/sSUBC PS: 133.79 cm/sSUBC PS: 114.61 cm/sVERT ED: | | 12.09 cm/sVERT ED: 6.03 cm/sVERT PS: 46.88 cm/sVERT PS: 19.89 cm/s Heating Equipment Repairer: | | DHAuthenticated by: Nasir Lim MD, FACC, FACP, FASNCReport Date/Time: -- | | [id number] IMPRESSION: 1. Minimal intimal thickening in right internal | | carotid artery. S/P CEA.2. Minimal intimal thickening in left internal carotid artery. | | S/P CEA. | |CCA AC: 58 deg | |CCA AC: 49 deg | |CCA ED: 22.53 cm/s | |CCA ED: 13.45 cm/s | |CCA ED: 11.58 cm/s | |CCA ED: 9.62 cm/s | |CCA PS: 111.33 cm/s | |CCA PS: 82.75 cm/s | |CCA PS: 65.83 cm/s | |CCA PS: 78.92 cm/s | |ICA/CCA ED: 0.86 | |ICA/CCA ED: 1.51 | |ICA/CCA PS: 0.46 | |ICA/CCA PS: 0.84 | |ECA AC: 45 deg | |ECA AC: 41 deg | |ECA ED: 11.10 cm/s | |ECA ED: 13.19 cm/s | |ECA PS: 63.72 cm/s | |ECA PS: 90.32 cm/s | |ICA AC: 55 deg | |ICA AC: 29 deg | |ICA AC: 29 deg | |ICA AC: 54 deg | |ICA AC: 49 deg | |ICA AC: 54 deg | |ICA ED: 19.39 cm/s | |ICA ED: 20.07 cm/s | |ICA ED: 17.07 cm/s | |ICA ED: 20.37 cm/s | |ICA ED: 9.35 cm/s | |ICA ED: 10.22 cm/s | |ICA PS: 52.03 cm/s | |ICA PS: 59.40 cm/s | |ICA PS: 47.17 cm/s | |ICA PS: 70.03 cm/s | |ICA PS: 24.64 cm/s | |ICA PS: 51.87 cm/s | |SUBC PS: 133.79 cm/s | |SUBC PS: 114.61 cm/s | |VERT ED: 12.09 cm/s | |VERT ED: 6.03 cm/s | |VERT PS: 46.88 cm/s | |VERT PS: 19.89 cm/s | | | |Heating Equipment Repairer: | |Authenticated by: Nasir Lim MD, FACC, FACP, [facility] | |Report Date/Time: -- [id number]:42 | | | |IMPRESSION: | |1. Minimal intimal thickening in right internal carotid artery. S/P CEA. | |2. Minimal intimal thickening in left internal carotid artery. S/P CEA. | + + documented in this encounter Visit Diagnoses Not on filedocumented in this encounter"
--- OUTSIDE RECORDS SUMMARY | ~2020-05-18 | XMS | Encounter Summary ---
Demographics + + + | Address | [address] | | | [place] [address] | + + + | Home Phone | | + + + | Preferred Language | Unknown | + + + | Marital Status | | + + + | Christianity Affiliation | 1041 | + + + | Race | White | + + + | Ethnic Group | Not or | + + + Author + + + | Author | [facility] | | | and [place] | + + + | Organization | [facility] | | | and [place] | + + + | Address | Unknown | + + + | Phone | Unavailable | + + + Support + + + + + | Name | Relationship | Address | Phone | + + + + + | Tera Mccarthy | ECON | [place], [place] | | | | | [address] | | + + + + + | Alicia Mccarthy | ECON | [address] | | | | | [place] [address] | | + + + + + Care Team Providers + +------+ + | Care Applied Technologist Name | Role | Phone | + +------+ + | Brittany Meehan MD | PCP | | + +------+ + Reason for Visit + +--------+ + | Reason | Onset | Comments | | | Date | | + +--------+ + | Medication Reaction | 09/24/ | | | | 2018 | | + +--------+ + Encounter Details +--------+ + + + + | Date | Type | Department | Care Team | Description | +--------+ + + + + | 09/24/ | Telephone | [facility] | Erica Schneider, | Medication Reaction | | 2018 | | CARDIOLOGY [place] | [facility] | | | | | [address] | | | | | [facility] [place] | | | | | | [address] | | | | | | [phone] | | | +--------+ + + + [...] this encounter Miscellaneous Notes Telephone Encounter - Erica Schneider CMA - 09/24/2019 10:00 AM PSTLeft vm asking for ca ll back. ----- Message from Nasir Lim MD sent at 09/23/2019 12:00 PM PST ----- Dicontinue drug ----- Message ----- From: Erica Schneider CMA Sent: 09/21/2019 9:44 AM PST To: Nasir Lim MD, Shannan Yu, Patient called and stated that he thinks zetia is causing dizziness again, he stated yester day he felt like he couldn't walk by himself he was so dizzy. documented in this encounter Plan of Treatment +--------+---------+ + + + | Date | Type | Specialty | Care Team | Description | +--------+---------+ + + + | 06/25/ | Office | Cardiology | Connie Alvarez | | | 2019 | Visit | | [address] | | | | | | [address] | | | | | | [place] [address] | | | | | | [phone] | | | | | | | | +--------+---------+ + + + documented as of this encounter Visit Diagnoses Not on filedocumented in this encounter"
--- OUTSIDE RECORDS SUMMARY | ~2020-05-18 | XMS | Encounter Summary ---
Demographics + + + | Address | [address] | | | [place] [address] | + + + | Home Phone | | + + + | Preferred Language | Unknown | + + + | Marital Status | | + + + | Restorationist Affiliation | 1041 | + + + | Race | White | + + + | Ethnic Group | Not or | + + + Author + + + | Author | [facility] | | | and [place] | + + + | Organization | [facility] | | | and [place] | + + + | Address | Unknown | + + + | Phone | Unavailable | + + + Support + + + + + | Name | Relationship | Address | Phone | + + + + + | Tera Mccarthy | ECON | [place] | | | | | [address] | | + + + + + | Alicia Mccarthy | ECON | [address] | | | | | [place] [address] | | + + + + + Care Team Providers + +------+ + | Care Financial Center Manager Name | Role | Phone | + +------+ + | Matias Muñoz MD | PCP | | + +------+ + Reason for Referral Diagnostic/Screening (Routine) +--------+--------+ + + + + | Status | Reason | Specialty | Diagnoses / | Referred By | Referred To | | | | | Procedures | Contact | Contact | +--------+--------+ + + + + | Closed | | Radiology | Diagnoses | Mendez, | [address] | | | | | Cough | MD Lio | [address] | | | | | Procedures | [address] | [place], | | | | | CT Chest wo | [address] | [place] [address] | | | | | Contrast | [place], | Phone: | | | | | | [place] [address] | [phone] | | | | | | Phone: | Fax: | | | | | | [phone] | [phone] | | | | | | Fax: | | | | | | | [phone] | | +--------+--------+ + + + + Encounter Details +--------+ + + + + | Date | Type | Department | Care Team | Description | +--------+ + + + + | 07/13/ | Hospital | [facility] | Lio Mendez, | Cough | | 2012 | Encounter | MED CTR XRAY [address] | MD [address] | | | | | [address] [place] | [place], [place] | | | | | [place] [address] | [address] | | | | | [phone] | | | +--------+ + + + [...] + + documented as of this encounter Medications at Time of Discharge + + + +---------+ + + | Medication | Sig | Dispensed | Refills | Start | End Date | | | | | | Date | | + + + +---------+ + + | albuterol | Inhale 2 puffs into | | 0 | | | | (VENTOLIN HFA) 90 | the lungs every 6 | | | | 9 | | mcg/puff inhaler | hours as needed. | | | | | + + + +---------+ + + | aspirin 325 mg | Take 325 mg by mouth | | 0 | | | | tablet | Daily. | | | | 9 | + + + +---------+ + + | azithromycin | Take 1 tablet by | 6 | 0 | 07/13/20 | | | (ZITHROMAX) 250 mg | mouth Daily for 5 | tablet | | 13 | 3 | | tabletIndications: | days. 2 tabs now, | | | | | | Bronchiectasis (HCC) | then 1 tab daily | | | | | | | until gone | | | | | + + + +---------+ + + | | Inhale 1 puff into | | 0 | | | | fluticasone-salmeter | the lungs Twice | | | | 9 | | ol (ADVAIR) 100-50 | Daily. | | | | | | mcg/puff diskus | | | | | | | inhaler | | | | | | + + + +---------+ + + | lovastatin | Take 10 mg by mouth | | 0 | | | | (MEVACOR) 10 MG | nightly. | | | | 9 | | tablet | | | | | | + + + +---------+ + + | metoprolol | Take by mouth. Take | | 0 | | | | tartrate (LOPRESSOR) | 1/2 tablet daily | | | | 9 | | 25 mg tablet | | | | | | + + + +---------+ + + | omeprazole | Take 20 mg by mouth | | 0 | | | | (PRILOSEC) 10 mg | every morning | | | | 9 | | capsule | (before breakfast). | | | | | + + + +---------+ + + documented as of this encounter [...] [address] | | | | | | [place] [address] | | | | | | [phone] | | | | | | | | +--------+---------+ + + + documented as of this encounter Procedures + +--------+ + + + | Procedure Name | Priori | Date/Time | Associated Diagnosis | Comments | | | ty | | | | + +--------+ + + + | CT CHEST WO CONTRAST | Routin | 07/13/2013 | Cough | Results for this | | | e | 3:30 PM | | procedure are in the | | | | PDT | | results section. | + +--------+ + + + | CT SINUS WO CONTRAST | Routin | 07/13/2013 | | Results for this | | LIMITED | e | 3:15 PM | | procedure are in the | | | | PDT | | results section. | + +--------+ + + + documented in this encounter Results CT Chest wo Contrast (07/13/2013 3:30 PM PDT) + + | Specimen | + + | | + + + + + | Narrative | Performed At | + + + | [facility] | [facility] | | Department [address] [facility], [place] | [facility] | | [ [address]] [ rep [facility] | | st zip] Signed | - IMAGING | | | | | Patient Name: SIMON MCCARTHY Physician: | | | ALBERTO. : 1940 Age: 73 Sex: M Unit #: [id number] | | | Exam Date: 07/13/13 Location: [facility] | | | Report #: [id number] Page: | | | %(RAD)RES..mtdd.print.filter("pg") of %(RAD) | | | RES..mtdd.print.filter("tpg") | | | | | | Accession Number: [id number] | | | CT CHEST WITHOUT CONTRAST, 07/13/2013 COMPARISON: Chest | | | x-ray dated 04/03/2013. PROTOCOL: Axial CT images of the | | | chest without IV contrast. Reconstruction views were obtained. | | | FINDINGS: Neck base is normal. Heart is of normal | | | size. Moderate coronary calcifications are visualized. Some | | | anterior hardware is seen, likely related to previous CABG surgery. | | | There is mild to moderate atherosclerosis of the aorta with mild | | | extension into the branches. The ascending thoracic aorta is | | | ectatic measuring 4.2 cm in AP dimension. The pulmonary arteries and | | | superior vena cava are unremarkable. No enlarged lymph | | | nodes are observed of the mediastinum or susan. Some small benign | | | appearing lymph nodes are present in the axilla. The trachea and | | | esophagus demonstrate no acute findings. Several | | | noncalcified nodules are observed of the bilateral lungs. The | | | largest measuring 0.4 cm are in the right upper lobe (image 39) and | | | in the left lower lobe (image 92). Multiple tiny calcified lymph | | | nodules are observed of the bilateral lungs as well, likely related to | | | previous granulomatous disease. There is a metallic | | | shrapnel in the superior left pectoralis muscle (image 1). | | | Sternotomy wires are observed, likely from previous CABG surgery. | | | There is mild to moderate dextroscoliosis of the thoracic spine. | | | Mild spondylosis is noted. Mild disk height loss is noted at | | | multiple levels of the mid thoracic spine with associated vacuum | | | phenomenon. There is a low attenuation structure in the | | | posterior right liver lobe that measures 2.7 cm and could represent | | | either a hemangioma or cyst. IMPRESSION: 1. | | | NO ACUTE FINDINGS IN THE CHEST. 2. MULTIPLE NODULES OF | | | THE BILATERAL LUNGS MEASURING UP TO 0.4 CM. FOR A LOW-RISK PATIENT, | | | NO FOLLOWUP IS NEEDED. FOR A HIGH-RISK PATIENT, A FOLLOWUP CT SCAN | | | IS RECOMMENDED IN 12 MONTHS. 3. 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 4. ECTASIA OF ASCENDING THORACIC AORTA THAT | | | MEASURES UP TO 4.2 CM IN AP DIMENSION. 5. 2.0 CM LOW | | | ATTENUATION STRUCTURE IN THE POSTERIOR ASPECT OF RIGHT LIVER LOBE THAT | | | COULD EITHER REPRESENT A HEMANGIOMA OR CYST. 6. | | | EVIDENCE FOR PREVIOUS CABG SURGERY. 7. METALLIC FOCUS IN | | | LEFT PECTORALIS MUSCLE THAT COULD REPRESENT SHRAPNEL. | | | Dictated Date/Time: 07/13/2013 15:30 Transcribed Date/Time: | | | 07/13/2013 16:26 Senior Quality Manager: | | | <<Signature on File>> | | | Michael | | | MD Leoncio07/13/13 1636 <Electronically signed by Michael Fang MD> | | | Michael Fang MD 07/13/13 8890 Senior Quality Manager: [employer] | | | [id number]/18/13 1626 Lio Mendez MD | | | | | + + + + + + + + | Performing | Address | City[facility] | Phone Number | | Organization | | | | + + + + + | [facility] | [address] | [place], [place] | [phone] | | [facility] | | [address] | | | - IMAGING | | | | + + + + + CT Sinus WO Contrast Limited (07/13/2013 3:15 PM PDT) + + | Specimen | + + | | + + + + + | Narrative | Performed At | + + + | [facility] | [facility] | | Department [address] , [place] | [facility] | | [ rep [address]] [ rep ct [facility] | | st zip] Signed | - IMAGING | | | | | Patient Name: SIMON MCCARTHY Physician: | | | [birth year] : 1940 Age: 73 Sex: M Unit #: [id number] | | | Exam Date: 07/13/13 Location: 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 COMPARISON: None. | | | PROTOCOL: Thin section axial CT images of the paranasal | | | sinuses with reconstruction views. FINDINGS: Limited | | | evaluation of the brain demonstrates no acute findings. Orbits are | | | unremarkable. Visualized mastoids are clear. Skull base | | | structures are unremarkable. There is dental hardware. | | | The frontal sinuses are clear. There has been previous | | | ethmoidectomy. The ethmoid sinuses and sphenoid sinuses are clear. | | | There is a septation in the right maxillary sinus, which is | | | otherwise clear. Moderate mucosal thickening is observed in the | | | inferior aspect of the left maxillary sinus. There is mild mucosal | | | thickening along the lateral aspect of the left maxillary sinus. | | | The bilateral osteomeatal complexes are patent. | | | IMPRESSION: 1. EVIDENCE FOR PREVIOUS ETHMOIDECTOMY. | | | 2. MILD AND MODERATE MUCOSAL THICKENING OF THE LEFT | | | MAXILLARY SINUS. 3. BILATERAL OSTEOMEATAL COMPLEXES ARE | | | PATENT. Dictated Date/Time: 07/13/2013 15:15 | | | Transcribed Date/Time: 07/13/2013 16:08 Senior Quality Manager: | | | <<Signature on File>> | | | Michael | | | MD Leoncio07/13/13 1636 <Electronically signed by Michael Fang MD> | | | Michael Fang MD 07/13/13 5605 Senior Quality Manager: [employer] | | | [id number]/18/13 1608 Matias Muñoz MD | | + + + + + + + + | Performing | Address | City/State/Zipcode | Phone Number | | Organization | | | | + + + + + | [facility] | [address] | [place] | [phone] | | [facility] | | [address] | | | - IMAGING | | | | + + + + + documented in this encounter Visit Diagnoses + + | Diagnosis | + + | Cough | + + documented in this encounter
--- OUTSIDE RECORDS SUMMARY | ~2020-05-18 | XMS | Encounter Summary ---
Demographics + + + | Address | [address] | | | [place] [address] | + + + | Home Phone | | + + + | Preferred Language | Unknown | + + + | Marital Status | | + + + | Orthodox Affiliation | 1041 | + + + | Race | White | + + + | Ethnic Group | Not or | + + + Author + + + | Author | [facility] | | | and [place] | + + + | Organization | [facility] | | | and [place] | + + + | Address | Unknown | + + + | Phone | Unavailable | + + + Support + + + + + | Name | Relationship | Address | Phone | + + + + + | Tera Mccarthy | ECON | [place] | | | | | [address] | | + + + + + | Alicia Mccarthy | ECON | [address] | | | | | [place] [address] | | + + + + + Care Team Providers + +------+ + | Care Power Hammer Operator Name | Role | Phone | [...] Description | +--------+---------+ + + + | 07/27/ | Office | [facility] | Lio Mendez, | Bronchiectasis (HCC) | | 2012 | Visit | PULMONARY [address] | MD [address] | (Primary Dx); | | | | [place], | [place], [place] | Chronic cough; Cough | | | | [place] [address] | [id number] | variant asthma | | | | [phone] | | | +--------+---------+ + + + [...] + + + | Blood Pressure | 152/94 | 07/27/2013 12:49 PM | | | | | PDT | | + + + + + | Pulse | 61 | 07/27/2013 12:49 PM | | | | | PDT | | + + + + + | Temperature | - | - | | + + + + + | Respiratory Rate | - | - | | + + + + + | Oxygen Saturation | 97% | 07/27/2013 12:49 PM | | | | | PDT | | + + + + + | Inhaled Oxygen | - | - | | | Concentration | | | | + + + + + | Weight | 80.7 kg (178 lb) | 07/27/2013 12:49 PM | | | | | PDT | | + + + + + | Height | 175.3 cm (5' 9") | 07/27/2013 12:49 PM | | | | | PDT | | + + + + + | Body Mass Index | 26.29 | 07/27/2013 12:49 PM | | | | | PDT | | + + + + + documented in this encounter Patient Instructions Patient Instructions Lio Mendez MD - 07/27/2013 1:15 PM PDTOnce symptoms stable (1 -3 months) trial of stopping the Advair. If cough worsens restart. If not remain off. Flu shot PILY. documented in this encounter Progress Notes Lio Mendez MD - 07/27/2013 1:04 PM PDTFormatting of this note might be different f rom the original. Pulmonary Follow Up 07/27/2013 HPI Simon Mccarthy is a 73 y.o. male patient of Matias Muñoz here today for follow up of bronchiectasis and chronic cough. It has been 3 weeks since our last clinic appointment. At their last visit, we planned to azithromycin. Since the last visit he feels like their symptoms are decreasing steadily. They have have not had any acute illnesses. He reports 0 bronchiectasis exacerbations requ iring antibiotics. They are currently are not on a maintenance regimen. The regimen consis ts of Advair and prn Ventolin. He does feel like this medication regimen is working for the m. Currently they are able to walk many miles at their own pace on level ground. They are exer cising regularly. They are not enrolled in cardiac/pulmonary rehabilitation or other physica l therapy. He are not practicing bronchial hygiene behaviors. He does cough chronically, and does produce mucous. The mucous is clear in color. They have not had hemoptysis since our last appointment. He has been evaluated for nocturnal oxygen. He uses a bronchodilator, Ventolin, 0 times a day. He does not had symptoms of heartburn or reflux. They have had symptoms of nasal congestion , runny nose or post nasal drip. Patient believes is significant improvement of his symptoms occurred following a course of azithromycin. Simon plans to receive a seasonal influenza vaccination sometime in the [facility] t several days. Past Medical History Past Medical History Diagnosis [...] tablet, Active, Take 1 tablet by mouth Three times a week., Disp: 12 tablet, Rfl: 5 fluticasone-salmeterol (ADVAIR) 100-50 mcg/puff diskus inhaler, Active, [...] of Systems Constitutional: Denies fever, chills, sweats, fatigue/weakness, and unexpected weight harvey ge. Sleep: Denies trouble sleeping, excessive snoring, and daytime sleepiness. Eyes: Denies vision change, and eye irritation. ENT: Denies earache, tinnitus, decreased hearing, nosebleeds, sore throat, and hoarseness. Resp: See HPI. CV: Denies neck/chest/jaw pain with exertion, palpitations, lightheadedness, syncope, dysp leroy on exertion, orthopnea, PND, peripheral edema, and claudication. GI: Denies trouble swallowing, nausea, vomiting, abdominal pain, diarrhea, constipation,m evie, and hematochezia. Neurologic: Denies frequent headaches, seizures, tremors, numbness or tingling in hands or feet, vertigo, and falls. Allergy Denies urticaria, allergic rash, hay fever. Objective BP 152/94 | Pulse 61 | Ht 1.753 m (5' 9") | Wt 80.74 kg (178 lb) | BMI 26.29 kg/m2 | SpO2 9 7% Appearance: Alert, cooperative, no distress, appears stated age Head: Normocephalic, without obvious abnormality, atraumatic Eyes: PERRL, conjunctiva/corneas clear Nose: Nares normal, septum midline, mucosa normal, no drainage or sinus tenderness Throat: Lips, mucosa, and tongue normal; teeth/dentures normal Neck: Supple, symmetrical, no JVD Lungs: No accessory muscle use, breath sounds are clear to auscultation bilaterally, no w heezes, crackles or rhonchi. No dullness to percussion. Chest Wall: No tenderness or deformity Heart: Regular rate and rhythm, S1, S2 normal, no murmur, rub or gallop Extremities: Extremities normal, atraumatic, no cyanosis, clubbing, or edema Skin: Warm and dry Lymph nodes: Cervical and supraclavicular nodes normal Neurologic: Gait normal Assessment 1. Bronchiectasis-Simon is a 73-year-old male with radiographic evidence of mild bibasil ar bronchiectasis. At the time of our last clinic appointment Simon was treated with 5 da ys of azithromycin. He says when he noted significant improvement of his bronchiectasis sym ptoms. I suggested the patient that he move onto maintenance azithromycin using the agent 3 times a week. 2. Asthma-cough variant. Prior improvement of the patient's cough occurred with the use o f Advair. It remains to be seen what extent Advair use as needed moving forward. I suggested the Simon is using Advair for 1-3 months and then discontinue the agent and s ee if his cough were to worsen. If so then we can safely conclude that a component of cough variant asthma is present. Plan 1. Azithromycin 250 mg 3 times a week 2. Seasonal influenza vaccination within the next several days. 3. Pulmonary clinic followup appointment in approximately 6 months time. 4. Trial of discontinuing Advair in 1-3 months as described above. CC: Matias Muñoz documented in this encounter [...] [address] | | | | | | [place] [address] | | | | | | [phone] | | | | | | | | +--------+---------+ + + + documented as of this encounter Visit Diagnoses + + | Diagnosis | + + | Bronchiectasis (HCC) - Primary Bronchiectasis without acute exacerbation | + + | Chronic cough Cough | + + | Cough variant asthma | + + documented in this encounter
--- OUTSIDE RECORDS SUMMARY | ~2020-05-18 | XMS | Encounter Summary ---
Demographics + + + | Address | [address] | | | [place] [address] | + + + | Home Phone | | + + + | Preferred Language | Unknown | + + + | Marital Status | | + + + | Latter-Day Affiliation | 1041 | + + + | Race | White | + + + | Ethnic Group | Not or | + + + Author + + + | Author | [facility] | | | and [place] | + + + | Organization | [facility] | | | and [place] | + + + | Address | Unknown | + + + | Phone | Unavailable | + + + Support + + + + + | Name | Relationship | Address | Phone | + + + + + | Tera Mccarthy | ECON | [place], [place] | | | | | [address] | | + + + + + | Alicia Mccarthy | ECON | [address] | | | | | [place] [address] | | + + + + + Care Team Providers + +------+ + | Care Outpatient Coordinator Name | Role | Phone | + +------+ + | Brittany Meehan MD | PCP | | + +------+ + Encounter Details +--------+ + + + + | Date | Type | Department | Care Team | Description | +--------+ + + + + | 08/09/ | Orders Only | [facility] | Connie Alvarez | Mixed hyperlipidemia | | 2019 | | CARDIOLOGY [facility] | [address] | (Primary Dx); | | | | [address] [facility] | [address] | Statin intolerance | | | | [address] | [place] [address] | | | | | [place] [address] | [phone] | | | | | [address] | | | | | | [phone] | | | +--------+ + + + [...] +---------+ + | Yes | | | Alcoholic | | | [...] + + documented as of this encounter Progress Connie Castillo, MICHAEL - 08/09/2019 11:53 AM Subhash called in and reported dizziness reso lved since he stopped Zetia , and I have ordered fenofibrate 54 mg, and advised to stop in 1 week if has any side effects. Electronically signed by MICHAEL Krueger at 019 11:58 AM PSTdocumented in this encounter Plan of Treatment +--------+---------+ + + + | Date | Type | Specialty | Care Team | Description | +--------+---------+ + + + | 06/25/ | Office | Cardiology | Connie Alvarez | | | 2019 | Visit | | [address] | | | | | | [address] | | | | | | [place] [address] | | | | | | [phone] | | | | | | | | +--------+---------+ + + + documented as of this encounter Visit Diagnoses + + | Diagnosis | + + | Mixed hyperlipidemia - Primary | + + | Statin intolerance Other drug allergy | + + documented in this encounter"
--- OUTSIDE RECORDS SUMMARY | ~2020-05-18 | XMS | Encounter Summary ---
Demographics + + + | Address | [address] | | | [place] [address] | + + + | Home Phone | | + + + | Preferred Language | Unknown | + + + | Marital Status | | + + + | Faith Affiliation | [phone] | + + + | Race | White | + + + | Ethnic Group | Not or | + + + Author + + + | Author | [facility] | | | and [place] | + + + | Organization | [facility] | | | and [place] | + + + | Address | Unknown | + + + | Phone | Unavailable | + + + Support + + + + + | Name | Relationship | Address | Phone | + + + + + | Tera Mccarthy | ECON | [place] | | | | | [phone] | | + + + + + | Alicia Mccarthy | ECON | [address] | | | | | [place] [address] | | + + + + + Care Team Providers + +------+ + | Care [employer] Name | Role | Phone | + +------+ + | Brittany Meehan MD | PCP | | + +------+ + Reason for Visit + + + | Reason | Comments | + + + | Tachycardia | | + + + | Hypotension | | + + + Auth/Cert +--------+--------+ + + + + | Status | Reason | Specialty | Diagnoses / | Referred By | Referred To | | | | | Procedures | Contact | Contact | +--------+--------+ + + + + | | | | Diagnoses | | | | | | | Paroxysmal | | | | | | | tachycardia | | | | | | | (HCC) Acute | | | | | | | renal | | | | | | | injury (HCC) | | | | | | | Paroxysmal | | | | | | | tachycardia | | | | | | | (HCC) | | | | | | | suspected | | | | | | | based on | | | | | | | history | | | +--------+--------+ + + + + Encounter Details +--------+ + + + + | Date | Type | Department | Care Team | Description | +--------+ + + + + | 05/29/ | Emergency | [facility] | Lele Rapp, | Elevated troponin | | 2019 - | | [facility] | [address] | (Primary Dx); | | | | CARE FLOOR [address] | [place] [address] | Fatigue, unspecified | | 05/30/ | [address] | [phone] | type; History of | | 2019 | | [place], [place] | | tachycardia; Recent | | | | [phone] | Celestina Osorio MD | cerebrovascular | | | | [phone] | [address] | accident (CVA); | | | | | [place] [address] | Coronary artery | | | | | [phone] | disease involving | | | | | | [place] coronary | | | | | Mary Jo Moran MD | artery of [place] | | | | | [address] | heart without angina | | | | | [place] [address] | pectoris; History | | | | | [phone] | of CEA (carotid | | | | | | endarterectomy); | | | | | | History of CVA | | | | | | (cerebrovascular | | | | | | accident); Hx of | | | | | | CABG; Hypertension | | | | | | goal BP (blood | | | | | | pressure) < 140/80; | | | | | | Mixed | | | | | | hyperlipidemia; | | | | | | Polycythemia vera | | | | | | (HCC) | +--------+ + + + + Social [...] + + + | Blood Pressure | 104/53 | 05/30/2019 11:43 AM | | | | | PDT | | + + + + + | Pulse | 71 | 05/30/2019 11:43 AM | | | | | PDT | | + + + + + | Temperature | 36.6 C (97.9 F) | 05/30/2019 11:43 AM | | | | | PDT | | + + + + + | Respiratory Rate | 16 | 05/30/2019 11:43 AM | | | | | PDT | | + + + + + | Oxygen Saturation | 95% | 05/30/2019 11:43 AM | | | | | PDT | | + + + + + | Inhaled Oxygen | - | - | | | Concentration | | | | + + + + + | Weight | 77.6 kg (171 lb 1.6 | 05/29/2019 6:51 PM | | | | oz) | PDT | | + + + + + | Height | 175.3 cm (5' 9") | 05/29/2019 6:51 PM | | | | | PDT | | + + + + + | Body Mass Index | 25.27 | 05/29/2019 6:51 PM | | | | | PDT | | + + + + + documented in this encounter Functional Status + + + [...] + + documented as of this encounter Discharge Summaries Mary Jo Moran MD - 05/30/2019 1:22 PM PDTFormatting of this note might be different fro m the original. Service: Hospitalist Discharge Summary Date of Admission: 05/29/2019 Date of Discharge: 05/30/2019 Discharge Provider: Mary Jo Moran MD Discharge Diagnoses: Principal Problem: Elevated troponin Active Problems: Coronary artery disease involving [place] coronary artery of [place] heart Mixed hyperlipidemia History of CEA (carotid endarterectomy) Hx of CABG Polycythemia vera Hypertension goal BP (blood pressure) < 140/80 History of CVA (cerebrovascular accident) Resolved Problems: * No resolved hospital problems. * Significant Diagnostic Studies: MRI brain on 16 May 2019 showed the following: Abnormal diffusion restriction is seen in the right centrum semiovale compatible with an area of acute infarction. Recent echocardiogram on 26 April 2019 showed the followin. Overall left ventricular systolic function is normal with an EF between 65 - 70%. 2. The right ventricle is normal in size and function. 3. There is mild aortic regurgitation. 4. Cgkp-jz-gabjzztn mitral regurgitation is present. 5. The ascending aorta is mildly dilated, measuring up to 3.9 cm. 6. [facility], no clinically significant changes are noted. EKG shows first-degree AV block otherwise sinus rhythm HOSPITAL COURSE: This is a 79-year-old male with recent history of ischemic stroke is evident from the MRI of the brain on 16 May 2019 with mild residual left facial droop, presented to the ED after he checked his blood pressures at home and incidentally noting a high heart rate of 1 50. Patient did not have any other symptoms including diaphoresis, nausea, chest pain, shor tness of breath, lightheadedness associated with the symptoms. By the time he was in the ER , he believes his heart rate had settled down. There was no further tachycardia noted over the night. Incidentally, on work-up in the ER, a troponin was sent out which came back slig htly elevated. Overnight patient had been quite stable. Given his recent stroke, incidenta l finding of high heart rate into 150s at home, we decided to discharge the patient on prolo nged monitoring with Holter monitor. I did get in touch with Dr. Sarkar who will be ambreen santos for Holter monitor for outpatient. Patient denies any other symptoms at this time. Vital Signs: BP 104/53 | Pulse 71 | Temp 36.6 C (97.9 F) (Oral) | Resp 16 | Ht 1.753 m (5' 9") | Wt 77.6 kg (171 lb 1.6 oz) | SpO2 95% | BMI 25.27 kg/m Patient is awake, alert, oriented to time, place and person Skin: Warm and supple Neck: No JVD Chest: Normal vesicular breath sounds, good air entry bilaterally CVS: S1S2 audible, no murmurs heard Abdomen: Soft, non tender, normal bowel sounds, no organomegaly Extremities: No pedal edema, clubbing or cyanosis Neurologic examination: No focal sensory or motor deficits Back examination: No CVA tenderness, no spinal tenderness Disposition: home Condition: Fair No discharge procedures on file. Follow up: No follow-ups on file. Discharge took 35 minutes, to include final examination, discussion of admission, and prepa ration of prescriptions, instructions for on-going care, follow-up and documentation of disc harge summary. Discharge Medications New Medications Details ezetimibe 10 mg tablet Take 1 tablet by mouth nightly for 30 days. aka: ZETIA Unchanged Medications Details clopidogrel 75 mg tablet Take 1 tablet by mouth Daily. aka: PLAVIX fluticasone-salmeterol 250-50 mcg/puff diskus inhaler Inhale 1 puff into the lungs 2 (two) times daily. aka: SAMSON GENAO INHUB losartan 50 mg tablet Take 0.5 tablets by mouth Daily. aka: COZAAR metoprolol succinate 25 mg 24 hr tablet Take 1 tablet by mouth Daily. aka: TOPROL-XL documented in this en counter Discharge Instructions Instructions Sissy Mcguire RN - 05/30/2019 Holter Monitor A Holter monitor is a small, portable device used to monitor your heart rhythm for 24 to 48 hours while you go about your normal daily activities at home or work. Your healthcare prov ider has ordered a Holter monitor so he or she can check to see if you have an arrhythmia. A narrhythmia is a change from the normal speed or pattern of these electrical impulses. Thi s can cause the heart to beat too fast (tachycardia), or, too slow (bradycardia), or in an u nsteady pattern (irregular rhythm). When you have an arrhythmia, it can cause symptoms such as dizziness, fainting, weakness, fatigue, racing heartbeats, pounding, or irregular heartbe ats. Electrical impulses normally cause the heart to beat 60 to 100 times a minute. These impuls es come from a natural pacemaker deep inside the heart muscle in the right upper chamber of the heart (atrium). Each impulse spreads through the rest of the heart and causes the heart muscle to contract. This pushes blood through the heart chambers and out to the tissues and organs of your body. Unlike an electrocardiogram (ECG) or a monitor used when you are in the emergency department, the Holter monitor records a continuous log of your heart rhythm acti vity for a much longer period of time, usually 1 or 2 days. This increases the chance that a n arrhythmia will be seen, if one exists. Knowing the type of arrhythmia will help your healthcare provider identify the cause and th e best treatment to use. Any arrhythmia that occurs during the test period will be captured on the recording for your doctor to see. Home care Do your usual activities while wearing the monitor, except: Don't bathe, shower, or swim. Stay away from metal detectors or areas of high electrical conductivity Keep a diary of your activities and anything you feel while wearing the monitor. It is harrison cially important to write down symptoms like chest pain, trouble breathing, or dizziness. Ma ke sure to record the time that you felt these symptoms. Call as directed to make an appointment to get your Holter monitor. The staff there will ex plain how to use it. You will be given instructions on how to connect the monitor and take c are of it while you are wearing it. You will also be given instructions on how to return the monitor so the results can be evaluated. Make sure you ask your provider how you will get the results of your test and what follow u p plans you should make based on the results. Date Last Reviewed: 02/25/[id number] The [employer]. [address] [place], [place] [id number]. All righ ts reserved. This information is not intended as a substitute for professional medical care. Always follow your healthcare professional's instructions. documented in this encounter Medications at Time of Discharge + + + +---------+ + + | Medication | Sig | Dispensed | Refills | Start | End Date | | | | | | Date | | + + + +---------+ + + | | as needed Takes as | | 0 | 11/29/19 | | | fluticasone-salmeter | needed. | | | 19 | | | ol (SAMSON GENAO | | | | | | | INHUB) 250-50 | | | | | | | mcg/puff diskus | | | | | | | inhaler | | | | | | + + + +---------+ + + | clopidogrel | Take 1 tablet by | 30 | 0 | 05/18/20 | | | (PLAVIX) 75 mg | mouth Daily. | tablet | | 19 | 9 | | tablet | | | | | | + + + +---------+ + + | ezetimibe (ZETIA) | Take 1 tablet by | 30 | 0 | 05/30/20 | | | 10 mg tablet | mouth nightly for 30 | tablet | | 19 | 9 | | | days. | | | | | + + + +---------+ + + | losartan (COZAAR) | Take 0.5 tablets by | 30 | 0 | 05/23/20 | | | 50 mg tablet | mouth Daily. | tablet | | 19 | 9 | + + + +---------+ + + | metoprolol | Take 1 tablet by | 30 | 0 | 05/20/20 | | | succinate | mouth Daily. | tablet | | 19 | 9 | | (TOPROL-XL) 25 mg 24 | | | | | | | hr tablet | | | | | | + + + +---------+ + + | metoprolol | Take 1 tablet by | 30 | 0 | 06/01/20 | | | succinate | mouth Daily for 30 | tablet | | 19 | 9 | | (TOPROL-XL) 50 mg 24 | days. | | | | | | hr tablet | | | | | | + + + +---------+ + + | metoprolol | Take 1 tablet by | 30 | 0 | 06/01/20 | | | succinate | mouth Daily for 30 | tablet | | 19 | 9 | | (TOPROL-XL) 50 mg 24 | days. | | | | | | hr tablet | | | | | | + + + +---------+ + + | predniSONE | Take 1 tablet by | 4 | 0 | 06/02/20 | | | (DELTASONE) 20 mg | mouth Daily for 4 | tablet | | 19 | 9 | | tablet | days. | | | | | + + + +---------+ + + documented as of this encounter Progress Notes Rangel Loredo, [facility] - 05/29/2019 6:04 PM PDTRx Admission Medication History Note I have reviewed the medication history for appropriate doses obtained by: Pharmacy Medica tion History Claims Customer Service Representative After reviewing the home medication list : I agree with the home medications list. Confirmed [facility]ERS NON MEDICAL medications with patient and insurance fill history. Adjusted [facility]ERS NON MEDICAL medications according to the electrical controls technician note below. - removed cholecalciferol. Patient stopped taking. - taking losartan 25 mg daily. Different from fill history for 50 mg daily. Please Review and Order Home Medications as necessary. Thanks RANGEL LOREDO, Nicole 05/29/2019 18:03 >> Christine Martínez CPhT 05/29/2019 17:25 Rx Medication History Claims Customer Service Representative Note Patients Preferred Pharmacy has been updated in EPIC: yes Patients Allergies have been updated and marked as reviewed: yes Penicillins; Statins; and Pravastatin The following changes were made to the allergy list (if any): N/A Medication History provided by: Patient and [employer] Info Follow-up Issues: None- Pending Pharmacist Review High Risk Medications (dual source verification needed): None Changes made to the medication list include: Flagged for deletion: Vitamin D 3000 iu: reported self stopped taking. Reliability of information obtained: RELIABLE Additional Comments: N/A Medication history has been completed: Awaiting Pharmacist Final Review Christine Martínez, [facility] 05/29/2019 17:24 documented in t his encounter H&P Notes Celestina Osorio MD - 05/29/2019 5:57 PM PDTFormatting of this note might be different from t he original. Patient Name: Simon Mccarthy Date of Admission: 05/29/2019 Referring Provider: dr rapp Source of Information: patient Chief Complaint: heart rate is fast HPI: 79 Y/O MALE WITH HX OF HTN, HLD, CAD, CABG, POLYCYTHEMIA VERA, RECENT ACUTE CVA 04/2019, com es in for c/o Fast heart rate. He was dx with acute right mca cva and admitted to [facility] . Was discharged on plavix, statins, bp meds. He said he stopped taking statins b/c m uscle aches, etc. But then he says he is taking the cholesterol medication which is in the medicine bag. He just saw his cardio on 05/23/19. Increased his toprol xl to 25 and decrease d losartan to 25 mg. He says he has bp machine at home and check it regularly. His top num jamal of bp is in 90's and bottom number is 70's. And few times, the heart rate reads 150's. He denies any sob, no chest pain, no palpitations. He was seen in the er yesterday and his bp, hr was fine so discharged. He feels fine otherwise. ROS Denies sob, no n/v/d, no chest pain, no fever, chills. 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 Hyperlipidemia Hyperlipidemia Hypertension Myalgia s/p lovastatin + meningitis Nasal and sinus discharge Occlusion of carotid artery PAD (peripheral artery disease) ([facility]) Polycythemia vera ([facility]) 2016 Renal stone Sciatica Sinusitis Chronic Stroke ([facility]) Trigeminy Ventricular pre-excitation ACTIVE COMORBIDITIES: <COMORBIDITIES> PSH: Past Surgical History: Procedure Laterality Date COLONOSCOPY CORONARY ARTERY BYPASS GRAFT 2008 6 vessel/ RLE veing harvest CORONARY ARTERY BYPASS GRAFT EYE SURGERY L and R CEA 2010 NASAL SEPTUM SURGERY OTHER SURGICAL HISTORY CATARACT EXTRACTION TONSILLECTOMY AND ADENOIDECTOMY Medications: No current facility-administered medications on file prior to encounter. Current Outpatient Medications on File Prior to Encounter Medication Sig Dispense Refill Cholecalciferol (VITAMIN D3) 3000 units TABS Take by mouth. clopidogrel (PLAVIX) 75 mg tablet Take 1 tablet by mouth Daily. 30 tablet 0 fluticasone-salmeterol (ADVAIR, WIXELA INHUB) 250-50 mcg/puff diskus inhaler Inhale 1 p uff into the lungs 2 (two) times daily. losartan (COZAAR) 50 mg tablet Take 0.5 tablets by mouth Daily. 30 tablet 0 metoprolol succinate (TOPROL-XL) 25 mg 24 hr tablet Take 1 tablet by mouth Daily. 30 ta blet 0 Allergies: Allergies Allergen Reactions Penicillins Rash Statins Other (See Comments) Cramping in the legs, muscle weakness Pravastatin Other (See Comments) FH: family history includes * in his brother and mother; Coronary artery disease in his mother; High cholesterol in his mother; Hypertension in his mother; Kidney disease in his brother. SH: reports that he has never smoked. He has quit using smokeless tobacco. He reports that he drinks alcohol. He reports that he does not use drugs. Physical Exam: BP 137/72 | Pulse 63 | Temp 36.7 C (98.1 F) (Temporal) | Resp 19 | Ht 1.753 m (5' 9 ") | Wt 78 kg (172 lb) | SpO2 98% | BMI 25.40 kg/m Physical Exam Physical Exam: Constitutional: Alert and oriented to person, place, and time. Appears well-developed and w ell-nourished. HEENT: Neck supple, no JVD, non icteric sclera. Cardiovascular: Normal rate, regular rhythm, normal heart sounds with S1 and S2, Exam re veals no gallop and no friction rub. No murmur heard. No S3, No S4 Pulmonary/Chest: Effort normal and breath sounds normal. No stridor. No respiratory distres s. no wheezes. no rales. exhibits no tenderness. Abdominal: Soft. Bowel sounds are normal. exhibits no distension and no palpable mass. Ther e is no tenderness. There is no rebound and no guarding. Extremeties/Musculoskeletal: Normal range of motion.exhibits no tenderness. exhibits no ed patrick. Neurological: Alert and oriented to person, place, and time. OBVIOUS FACIAL DROOP. PERRLA SENSATION , MOTOR INTACT Skin: Skin is warm and dry. Psychiatric: Has a normal mood and affect. Labs: Recent Labs Lab 05/29/19 1334 05/28/19 1325 WBC 6.86 7.15 HGB 14.5 14.5 HCT 45.0 43.3 PLT 223 217 NA 142 142 K 4.3 4.3 CL 109 109 CO2 26 24 BUN 16 15 EGFR 51* 47* CALCIUM 8.6 8.7 ANIONGAP 11 13 PHOS -- 3.4 MG 1.9 1.9 AST 13 12 ALT <7* <7* Recent Labs Lab 05/29/19 1334 05/28/19 1325 TROPONINT 0.086* 0.039 No results for input(s): CLARITYU, LEUKOCYTESUR, UROBILINOGEN, PHUR, BLOODU, KETONES, BILIR UBINUR, GLUCOSEU, RBCU, BACTERIA, COMU in the last 168 hours. Invalid input(s): UCOL, SPECGRAV, NITRITE, UPRO Imaging: No results found. Problem List: Principal Problem: Elevated troponin Active Problems: Coronary artery disease involving [place] coronary artery of [place] heart Mixed hyperlipidemia History of CEA (carotid endarterectomy) Hx of CABG Polycythemia vera Hypertension goal BP (blood pressure) < 140/80 History of CVA (cerebrovascular accident) Assessment and Plan: 1. ELEVATED TROPONIN / tachycardia? He seems confused during hx about his BP numbers for blood pressure, and heart rate. Not sure what to make of elevated troponin, which is checked by ER providers for unknown re asons. He denies any chest pain, no palpitations, etc. Maybe he is going into a. Fib, or other arrhthymias. Will keep on tele to eval for any arrhthymias. If -ve. May consider holter Trend ck trop overnight. 2. HTN C/w home meds 3. CAD/ CABG HX C/w home meds 4. RECENT CVA C/w plavix He seems intolerant of statins. Got side effects. Consider other alternatives. Added zetia Prior Celestina Osorio MD 05/29/2019 documented in this [facility] ED Notes Concepcion Ortiz RN - 05/29/2019 6:40 PM PDTPatient has denies chest pain and sob throu ghout visit. Lightheaded with activity. No tachycardia or hypotension during stay. Report to sissy CHO at time of transfer. ortConcepcion torres RN - 05/29/2019 4:43 PM PDTMD to bedside to update patient on kristen n for admission. Patient continue to have first degree block on the monitor with RBBB. No ep isodes of tachycardia or hypotension. Reports lightheadedness but denies chest pain, sob or nausea. No needs or concerns at this time. Lele Muñoz MD - 05/29/2019 1:47 PM PDTFormatting of this not e might be different from the original. 13:47 [facility] Department of Emergency Medicine History of Present Illness Patient Identification Simon Mccarthy is a 79 y.o. male. Patient information was obtained from patient and family member. History/Exam limitations: none. Patient presented to the Emergency Department by: Chief Complaint Chief Complaint Patient presents with Tachycardia Hypotension Chief complaint: tachycardia Location: heart Quality: "my heart rate elevated" Severity: severe Onset: this morning Timing: resolved Modifying factors: time worsens and improves symptoms Care prior to arrival: none Associated symptoms: hypotension, lightheadedness, and fatigue Denies: fever, cough, sore throat, congestion, headache, vision changes, nausea, vomiting, diarrhea, abdominal pain, or any other symptoms at this time. Context: The pt presents to the ED with complaints of tachycardia. He has been experiencing several episodes of tachycardia and hypotension since his "slight stroke" on 05/16/19. At th e time, he saw Dr. Centeno and Dr. Reese, Neurology and stayed in the ED for 3 days. He began c hecking his blood pressure and heart rate very often afterwards and first had symptoms a few days later. He came to the ED for symptoms yesterday after his heart rate elevated to about 150 bpm and his systolic blood pressure dropped to about 92. He was told he had an "arrhyth javier" and to return to the ED if symptoms returned. Today, the pt woke feeling normally, but began experiencing symptoms after drinking coffee. His blood pressure was again about 92 sys tolic and his heart rate was about 151 bpm, so he came to the ED. The pt reports that he typ ically takes his blood pressure before he takes Metoprolol and Plavix. He saw his PCP do brown who discontinued his Lipitor and Fenofibrate for 2 weeks and decreased his Losartan dose . PCP: Brittany Meehan MD Review of Systems Constitutional: Negative for fever or recent illness Eyes: Negative for vision changes Nose: Negative for congestion Throat: Negative for sore throat CV: Negative for chest pain Resp: Positive for chronic mild abblrzjra-ez-ggdhab (stable) Negative for cough GI: Negative for abdominal pain, nausea, vomiting, or diarrhea : Negative for urinary problems Musculoskeletal: Positive for ongoing body aches Skin: Negative for rash Neuro/Psych: Negative for headache Positive for lightheadedness Positive for residual L facial droop (stable) Negative for numbness All other systems reviewed and negative except as noted. 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 Hyperlipidemia Hyperlipidemia Hypertension Myalgia s/p lovastatin + meningitis Nasal and sinus discharge Occlusion of carotid artery PAD (peripheral artery disease) ([facility]) Polycythemia vera ([facility]) 2016 Renal stone Sciatica Sinusitis Chronic Stroke ([facility]) Trigeminy Ventricular pre-excitation Past Surgical History: Procedure Laterality Date COLONOSCOPY CORONARY ARTERY BYPASS GRAFT 2008 6 vessel/ RLE veing harvest CORONARY ARTERY BYPASS GRAFT EYE SURGERY L and R CEA 2010 NASAL SEPTUM SURGERY OTHER SURGICAL HISTORY CATARACT EXTRACTION TONSILLECTOMY AND ADENOIDECTOMY Prior to Admission medications Medication Sig Start Date End Date Taking? Authorizing Provider Cholecalciferol (VITAMIN D3) 3000 units TABS Take by mouth. Historical Provider, clopidogrel (PLAVIX) 75 mg tablet Take 1 tablet by mouth Daily. 05/18/19 Daron Draper MD fluticasone-salmeterol (ADVAIR, WIXELA INHUB) 250-50 mcg/puff diskus inhaler Inhale 1 puff into the lungs 2 (two) times daily. 11/28/18 Historical Provider, losartan (COZAAR) 50 mg tablet Take 0.5 tablets by mouth Daily. 05/23/19 Connie Varela Maria Esther wagoner, CHIEF RESOURCE OFFICER metoprolol succinate (TOPROL-XL) 25 mg 24 hr tablet Take 1 tablet by mouth Daily. Patient taking differently: Take 12.5 mg by mouth Daily. 05/20/19 Daron Draper MD Allergies Allergen Reactions Penicillins Rash Statins Other (See Comments) Cramping in the legs, muscle weakness Pravastatin Other (See Comments) Social History Tobacco Use Smoking status: Never Smoker Smokeless tobacco: Former User Substance Use Topics Alcohol use: Yes Comment: Alcoholic Drinks/day: occasionally Drug use: No Comment: Drug use: No Family History Problem Relation Age of Onset Coronary artery disease Mother * Mother DJD High cholesterol Mother Hypertension Mother Kidney disease Brother * Brother AAA Physical Exam Temp: 36.7 C (98.1 F) Pulse: 73 Resp: 18 BP: 141/68 SpO2: 98 % Vital signs interpretation: Hypertensive, otherwise WNL Pulse Oximetry interpretation: normal General: Alert, in no apparent distress Eyes: Normal inspection, non-icteric, non-injected ENT: Nose normal Pharynx normal Moist mucous membranes Neck: Normal inspection Back: Normal inspection CV: Rate and rhythm normal 1/6 systolic murmur Respiratory: Bilaterally clear to auscultation No rales, wheezing or rhonchi Abdomen: Soft, non-distended, non-tender No masses, rebound or guarding Extremities: Non tender, no edema Skin: Color normal Warm and dry No rash Neuro: Alert, no AMS Slight L-sided facial droop Otherwise, no gross motor/sensory deficits Medical Decision Making and Emergency Department Course ED Department Course Patient presents to ED with complaints of tachycardia. My DDx includes, but is not limited to: faculty home machine, ACS, dysrhythmia, valvular disorder anxiety, electrolyte disorde r, reaction to medication/drug, versus other. Will order labs, imaging, and EKG, treat symp tomatically and reassess. Since a CXR was performed yesterday (it was NAD), I do not feel th is needs to be repeated today. 14:05 Reviewed the pt's medical hx. He attended the ED yesterday for similar complaints. Hi s workup was unremarkable. Patient ambulated in the ED, no tachycardia reported with ambulation Troponin mildly elevated to 0.086. It was 0.039 yesterday and 0.022 on 05/16/19. Cr is 1.35 with a GFR of 51 (it was 1.45 and 47 respectively yesterday) 16:34 Rechecked the pt and updated him on results. He is agreeable with the plan for admiss ion. 17:[address] Osorio, Hospitalist, who accepts the pt for admission. Vitals: 05/29/19 1832 05/29/19 1851 05/29/19 2217 05/29/19 2327 BP: (!) 149/102 151/70 124/55 139/65 Pulse: 63 62 66 60 Resp: 28 18 18 Temp: 36.7 C (98.1 F) 36.4 C (97.6 F) TempSrc: Oral SpO2: 92% 97% Weight: 77.6 kg (171 lb 1.6 oz) Height: 1.753 m (5' 9") Records Reviewed Old medical records. Nursing notes. Previous ED visits for similar and unrelated complaints CXR from yesterday IMPRESSION: No acute cardiopulmonary process. Laboratory Evaluation Results Procedure Component Value Ref Range Date/Time Comprehensive Metabolic Panel [[id number]] (Abnormal) Collected: 05/29/19 1334 Order Status: Completed Specimen: Blood Updated: 05/29/19 1425 Na 142 135 - 145 mmol/L K 4.3 3.5 - 4.9 mmol/L Cl 109 99 - 109 mmol/L CO2 26 23 - 32 mmol/L Anion Gap 11 5 - 20 mmol/L Glucose 87 65 - 99 mg/dL BUN 16 8 - 25 mg/dL Creatinine 1.35 0.70 - 1.30 mg/dL BUN/Creatinine Ratio 12 Calcium 8.6 8.5 - 10.5 mg/dL Protein, Total 6.1 6.3 - 8.2 g/dL Albumin 4.0 3.3 - 4.8 g/dL Globulin 2.1 1.3 - 4.9 g/dL A/G Ratio 1.9 1.0 - 2.4 BILIRUBIN, TOTAL 1.0 0.1 - 1.5 mg/dL ALK PHOS 83 35 - 115 U/L AST 13 10 - 45 U/L ALT <7 10 - 65 U/L Estimated GFR 51 >60 mL/min/1.73m2 Troponin I [[id number]] (Abnormal) Collected: 05/29/191333 Order Status: Completed Specimen: Blood Updated: 05/29/19 1425 Troponin T 0.086 0.00 - 0.04 ng/mL Magnesium [[id number]] Collected: 05/29/191333 Order Status: Completed Updated: 05/29/19 1425 Magnesium 1.9 1.7 - 2.4 mg/dL CBC with Differential [[id number]] (Abnormal) Collected: 05/29/191333 Order Status: Completed Specimen: Blood Updated: 05/29/19 1346 WBC 6.86 3.80 - 11.00 K/uL RBC 5.18 4.20 - 5.70 M/uL Hemoglobin 14.5 13.2 - 17.0 g/dL Hematocrit 45.0 39.0 - 50.0 % MCV 87.0 80.0 - 100.0 fl MCH 28.0 27.0 - 34.0 pg MCHC 32.2 32.0 - 35.5 g/dL RDW-SD 47.7 37 - 53 fl Platelet Count 223 150 - 400 K/uL MPV 9.1 fl Diff Type AUTOMATED % Neutrophils 73.19 % % Lymphocytes 13.85 % Monocyte % 10.97 % Eosinophils % 1.15 % Basophils % 0.84 % Neutrophils, Absolute 5.02 1.90 - 7.40 K/uL Absolute Lymphocytes 0.95 1.00 - 3.90 K/uL Absolute Monocytes 0.75 0.00 - 0.80 K/uL Eosinophils, Absolute 0.08 0.00 - 0.50 K/uL Basophils, Absolute 0.06 0.00 - 0.10 K/uL I personally reviewed the lab results and they have been posted to the chart. Pertinent po sitive and negative findings have been addressed appropriately. Radiology and EKG Evaluation EKG @ 12:05 Sinus rhythm with 1st degree AV block at a rate of 73 bpm. No ectopy. No STEMI or other ischemic changes. No significant changes compared to prior EKG conducted yesterday This EKG was interpreted by me independently. Lele Rapp MD Diagnosis and Disposition Diagnosis: 1. Elevated troponin 2. Fatigue, unspecified type 3. History of tachycardia 4. Recent cerebrovascular accident (CVA) 5. Coronary artery disease involving [place] coronary artery of [place] heart without angina pectoris 6. History of CEA (carotid endarterectomy) 7. History of CVA (cerebrovascular accident) 8. Hx of CABG 9. Hypertension goal BP (blood pressure) < 140/80 10. Mixed hyperlipidemia 11. Polycythemia vera (HCC) Disposition: ED Disposition ED Disposition Condition Comment Admit Attending: CELESTINA OSORIO [[id number]] Follow-up Information [facility]. Specialty: Emergency Medicine Contact information: [address] [place] [id number] Discharge Medications: Current Discharge Medication List Lele Rapp M.D. Lele Rapp MD 05/30/19 0000 Ban Mosqueda RN - 05/29/2019 1:36 PM PDTLab at bedside. Electronically signed by MARQUIS Lindo 05/29/2019 1:36 PM Isaías Parks RN - 05/29/2019 11:54 AM PDTPt seen yesterday for high pulse, pt states today his heart rate went up to 150 today with a BP of 115/97. Pt stat es the tachycardia happens intermittently. Pt had a small stroke one week ago. Electronicall y signed by Isaías Wasserman RN at 05/29/2019 11:55 AM PDTdocumented in this encounter Miscellaneous Notes Plan of Care - Malachi Caban MSW - 05/30/2019 10:22 AM PDTCare Management Initial Assessme nt Readmission Risk: HIGH Status Prior to Admission or Illness Arrival From: home or self-care Lives With: alone Living Arrangements: house Caregiver For: no one Patient s Caregiver: spouse/significant other Functional Status: Caregiving Concerns: none Home Accessibility: stairs to enter home Transportation Available: car Able to return to prior living: yes Care Management Concerns Last discharge date: Readmission Within Last 30 Days: current reason for admission unrelated to previous admiss ion Is Readmission Diagnosis Related to or Same As: Previous Discharging Facility: Previous Discharge Destination From: PCP: Brittany Meehan MD Contact Information Family Contact Information: Name: Tera Helton (son) Pager: Fax: DC Needs Assessment Current Outpt/Agency/Support Groups: none Community Agency Name: Anticipated Changes Related to Illness: none Concerns to be Addressed: no discharge needs identified Services Anticipated at Discharge: none Equipment Used at Home: none Equipment Needed after Discharge: none Durable Medical Equipment Provider: Pharmacy/Medication Needs: Transportation Needs: none Initial Plan Anticipated Discharge Disposition: home Expected DC Date: yes Steps Taken Toward Discharge: Next Steps: Notes: CM met with pt for discharge planning. Pt is 79 years old and lives with his in a 1-story home. Pt has 3 stairs at the main entrance. Pt has a [id number]. Pt is indepe ndent with ambulation but owns both a front wheel and 4 wheel walker. Pt's son lives nearby and can assist if needed. Pt has no difficulty obtaining his medications and had no resource concerns at this time. CM will continue to follow as needed. Electronically signed: PEPE KANG 05/30/2019 10:22 lan of Niharika Zhao RN - 05/30/2019 9:20 AM PDT Problem: Adult Inpatient Plan of Care Goal: Plan of Care Review Outcome: Ongoing, progressing Goal: Absence of Hospital-Acquired Illness or Injury Outcome: Ongoing, progressing Patient has no falls during hospitalization. Problem: Hypertension Acute Goal: Blood Pressure Within Desired Range Outcome: Ongoing, progressing Blood pressure this morning before metoprolol given 126/71. Problem: Skin Injury Risk Increased Goal: Skin Health and Integrity Outcome: Ongoing, progressing Patient independent in room. Patient frequently repositioning to reduce bed sores. Elect ronically signed by Niharika Griffith RN at 05/30/2019 9:27 AM PDTPlan of Burke Vásquez RN - 05/29/2019 7:38 PM PDT Problem: Skin Injury Risk Increased Goal: Skin Health and Integrity Outcome: Ongoing, progressing Uses call light appropriately 7:3 8 PM PDTPlan of Burke Vásquez RN - 05/29/2019 7:37 PM PDT Problem: Hypertension Acute Goal: Blood Pressure Within Desired Range Outcome: Ongoing, progressing Will monitor pressures, currently 150/70Electronically signed by Burke Benson RN at 11/2018 7:38 PM PDTPlan of Burke Vásquez RN - 05/29/2019 7:33 PM PDT Problem: Adult Inpatient Plan of Care Goal: Plan of Care Review Outcome: Ongoing, progressing Uses call light appropriately Problem: Adult Inpatient Plan of Care Goal: Absence of Hospital-Acquired Illness or Injury Outcome: Ongoing, progressing Hand washing hygiene discussed Problem: Adult Inpatient Plan of Care Goal: Readiness for Transition of Care Outcome: Ongoing, progressing Content, happy 79 yr old male. 7: 35 PM PDTdocumented in this encounter Plan of Treatment +--------+---------+ + + + | Date | Type | Specialty | Care Team | Description | +--------+---------+ + + + | 06/25/ | Office | Cardiology | Connie Alvarez | | | 2019 | Visit | | [address] | | | | | | [address] | | | | | | [place] [address] | | | | | | [phone] | | | | | | | | +--------+---------+ + + + documented as of this encounter Procedures + +--------+ + + + | Procedure Name | Priori | Date/Time | Associated Diagnosis | Comments | | | ty | | | | + +--------+ + + + | CREATINE KINASE, | Routin | 05/30/2019 | | Results for this | | ISOENZYMES | e | 4:37 AM | | procedure are in the | | | | PDT | | results section. | + +--------+ + + + | TROPONIN I | Routin | 05/29/2019 | | Results for this | | | e | 11:59 PM | | procedure are in the | | | | PDT | | results section. | + +--------+ + + + | TROPONIN I | Routin | 05/29/2019 | | Results for this | | | e | 6:11 PM | | procedure are in the | | | | PDT | | results section. | + +--------+ + + + | TROPONIN I | STAT | 05/29/2019 | | Results for this | | | | 1:34 PM | | procedure are in the | | | | PDT | | results section. | + +--------+ + + + | CBC WITH | STAT | 05/29/2019 | | Results for this | | DIFFERENTIAL | | 1:34 PM | | procedure are in the | | | | PDT | | results section. | + +--------+ + + + | MAGNESIUM | Routin | 05/29/2019 | | Results for this | | | e | 1:34 PM | | procedure are in the | | | | PDT | | results section. | + +--------+ + + + | COMPREHENSIVE | STAT | 05/29/2019 | | Results for this | | METABOLIC PANEL | | 1:34 PM | | procedure are in the | | | | PDT | | results section. | + +--------+ + + + | ECG 12 LEAD | STAT | 05/29/2019 | | Results for this | | | | 12:05 PM | | procedure are in the | | | | PDT | | results section. | + +--------+ + + + documented in this encounter Results Creatine Kinase, Isoenzymes (05/30/2019 4:37 AM PDT) + + + + + + | Component | Value | Ref Range | Performed | Pathologist | | | | | At | Signature | + + + + + + | CK-MM | 100Comment: Testing | 97 - 100 % | [facility] | | | | performed by [facility], | | LABORATORY | | | | [address], | | | | | | [place] [address] | | | | + + + + + + | CK-MB | 0Comment: Testing | 0 - 3 % | [facility] | | | | performed by [facility], | | LABORATORY | | | | [address], | | | | | | [place] [address] | | | | + + + + + + | CK-BB | 0Comment: Testing | 0 % | [facility] | | | | performed by [facility], | | LABORATORY | | | | [address], | | | | | | [place] [address] | | | | + + + + + + | CK, Total | 50Comment: Testing | 24 - 204 U/L | [facility] | | | | performed at [facility], | | LABORATORY | | | | [address], [address], | | | | | | [place] [address] | | | | + + + + + + | CK-MACRO | 0 | Not Observed % | [facility] | | | TYPE 1 | | | LABORATORY | | + + + + + + | CK-MACRO | 0Comment: Testing | Not Observed % | [facility] | | | TYPE II | performed by [facility], | | LABORATORY | | | | [address], | | | | | | [place] [address] | | | | + + + + + + + + | Specimen | + + | Blood | + + + + + + + | Performing | Address | City/State/Zipcode | Phone Number | | Organization | | | | + + + + + | [facility] | [address] | [place] [address] | [phone] | + + + + + Troponin I (05/29/2019 11:59 PM PDT) + + + + + + | Component | Value | Ref Range | Performed | Pathologist | | | | | At | Signature | + + + + + + | Troponin I | 0.081 (H)Comment: 0.04 | 0.00 - 0.04 | [facility] | | | | ng/mL or less | ng/mL | LABORATORY | | | | Negative, repeat | | | | | | testing in four to six | | | | | | hour ifclinically | | | | | | indicted0.05 to 0.77 | | | | | | ng/mL | | | | | | Suspicious for | | | | | | myocardial injury. | | | | | | Serial measurementsmay | | | | | | be necessary to confirm | | | | | | or exclude the diagnosis | | | | | | of acute | | | | | | coronarysyndrome. Repeat | | | | | | testing in four to six | | | | | | hours if indicated.0.78 | | | | | | or greater ng/mL | | | | | | Consistent with | | | | | | myocardial injury. | | | | | | Clinical andlaboratory | | | | | | correlation recommended. | | | | | | Testing performed at | | | | | | [facility];[address] [facility] | | | | | | [address]vd;[place] [address] | | | | + + + + + + + + | Specimen | + + | Blood | + + + + + + + | Performing | Address | City/State/Zipcode | Phone Number | | Organization | | | | + + + + + | [facility] | [address] | [place] [address] | [phone] | + + + + + Troponin I (05/29/2019 6:11 PM PDT) + + + + + + | Component | Value | Ref Range | Performed | Pathologist | | | | | At | Signature | + + + + + + | Troponin I | 0.087 (H)Comment: 0.04 | 0.00 - 0.04 | [facility] | | | | ng/mL or less | ng/mL | LABORATORY | | | | Negative, repeat | | | | | | testing in four to six | | | | | | hour ifclinically | | | | | | indicted0.05 to 0.77 | | | | | | ng/mL | | | | | | Suspicious for | | | | | | myocardial injury. | | | | | | Serial measurementsmay | | | | | | be necessary to confirm | | | | | | or exclude the diagnosis | | | | | | of acute | | | | | | coronarysyndrome. Repeat | | | | | | testing in four to six | | | | | | hours if indicated.0.78 | | | | | | or greater ng/mL | | | | | | Consistent with | | | | | | myocardial injury. | | | | | | Clinical andlaboratory | | | | | | correlation recommended. | | | | | | Testing performed at | | | | | | [facility];[address] | | | | | | [address];[place] [address] | | | | + + + + + + + + | Specimen | + + | Blood | + + + + + + + | Performing | Address | City/State/Zipcode | Phone Number | | Organization | | | | + + + + + | [facility] | [address] | [place] [address] | [phone] | + + + + + Magnesium (05/29/2019 1:34 PM PDT) + + + + + + | Component | Value | Ref Range | Performed | Pathologist | | | | | At | Signature | + + + + + + | Magnesium | 1.9Comment: Testing | 1.7 - 2.4 mg/dL | [facility] | | | | performed at [facility];[address] | | LABORATORY | | | | [address];[place] | | | | | | [address] | | | | + + + + + + + + | Specimen | + + | | + + + + + + + | Performing | Address | City/State/Zipcode | Phone Number | | Organization | | | | + + + + + | [facility] | [address] | [place] [address] | [phone] | + + + + + Troponin I (05/29/2019 1:34 PM PDT) + + + + + + | Component | Value | Ref Range | Performed | Pathologist | | | | | At | Signature | + + + + + + | Troponin I | 0.086 (H)Comment: 0.04 | 0.00 - 0.04 | [facility] | | | | ng/mL or less | ng/mL | LABORATORY | | | | Negative, repeat | | | | | | testing in four to six | | | | | | hour ifclinically | | | | | | indicted0.05 to 0.77 | | | | | | ng/mL | | | | | | Suspicious for | | | | | | myocardial injury. | | | | | | Serial measurementsmay | | | | | | be necessary to confirm | | | | | | or exclude the diagnosis | | | | | | of acute | | | | | | coronarysyndrome. Repeat | | | | | | testing in four to six | | | | | | hours if indicated.0.78 | | | | | | or greater ng/mL | | | | | | Consistent with | | | | | | myocardial injury. | | | | | | Clinical andlaboratory | | | | | | correlation recommended. | | | | | | Testing performed at | | | | | | [facility];[address] [facility] | | | | | | [address];[place] [address] | | | | + + + + + + + + | Specimen | + + | Blood | + + + + + + + | Performing | Address | City/State/Zipcode | Phone Number | | Organization | | | | + + + + + | [facility] | [address] | [place] [address] | [phone] | + + + + + Comprehensive Metabolic Panel (05/29/2019 1:34 PM PDT) + + + + + + | Component | Value | Ref Range | Performed | Pathologist | | | | | At | Signature | + + + + + + | Na | 142 | 135 - 145 | [facility] | | | | | mmol/L | LABORATORY | | + + + + + + | K | 4.3 | 3.5 - 4.9 | [facility] | | | | | mmol/L | LABORATORY | | + + + + + + | Cl | 109 | 99 - 109 mmol/L | [facility] | | | | | | LABORATORY | | + + + + + + | CO2 | 26 | 23 - 32 mmol/L | [facility] | | | | | | LABORATORY | | + + + + + + | Anion Gap | 11 | 5 - 20 mmol/L | [facility] | | | | | | LABORATORY | | + + + + + + | Glucose | 87 | 65 - 99 mg/dL | [facility] | | | | | | LABORATORY | | + + + + + + | BUN | 16 | 8 - 25 mg/dL | [facility] | | | | | | LABORATORY | | + + + + + + | Creatinine | 1.35 (H) | 0.70 - 1.30 | [facility] | | | | | mg/dL | LABORATORY | | + + + + + + | BUN/Creatin | 12 | | [facility] | | | ine Ratio | | | LABORATORY | | + + + + + + | Calcium | 8.6 | 8.5 - 10.5 | [facility] | | | | | mg/dL | LABORATORY | | + + + + + + | Protein, | 6.1 (L) | 6.3 - 8.2 g/dL | [facility] | | | Total | | | LABORATORY | | + + + + + + | Albumin | 4.0 | 3.3 - 4.8 g/dL | [facility] | | | | | | LABORATORY | | + + + + + + | Globulin | 2.1 | 1.3 - 4.9 g/dL | [facility] | | | | | | LABORATORY | | + + + + + + | A/G Ratio | 1.9 | 1.0 - 2.4 | [facility] | | | | | | LABORATORY | | + + + + + + | BILIRUBIN, | 1.0 | 0.1 - 1.5 mg/dL | [facility] | | | TOTAL | | | LABORATORY | | + + + + + + | ALK PHOS | 83 | 35 - 115 U/L | [facility] | | | | | | LABORATORY | | + + + + + + | AST | 13 | 10 - 45 U/L | [facility] | | | | | | LABORATORY | | + + + + + + | ALT | <7 (L) | 10 - 65 U/L | [facility] | | | | | | LABORATORY | | + + + + + + | Estimated | 51 (L)Comment: GFR <60: | >60 | [facility] | | | GFR | CHRONIC KIDNEY DISEASE, | mL/min/1.73m2 | LABORATORY | | | | IF FOUND OVER A 3 MONTH | | | | | | PERIOD.GFR <15: KIDNEY | | | | | | FAILURE.FOR | | | | | | AMERICANS, MULTIPLY THE | | | | | | CALCULATED GFR BY | | | | | | 1.210.This eGFR is | | | | | | calculated using the | | | | | | MDRD IDMS traceable | | | | | | equation.Testing | | | | | | performed at [facility];[address] | | | | | | [facility];[place], [place] | | | | | | [address] | | | | + + + + + + + + | Specimen | + + | Blood | + + + + + + + | Performing | Address | City/State/Zipcode | Phone Number | | Organization | | | | + + + + + | [facility] | [address] | [place] [address] | [phone] | + + + + + CBC with Differential (05/29/2019 1:34 PM PDT) + + + + + + | Component | Value | Ref Range | Performed | Pathologist | | | | | At | Signature | + + + + + + | WBC | 6.86 | 3.80 - 11.00 | [facility] | | | | | K/uL | LABORATORY | | + + + + + + | Red Blood | 5.18 | 4.20 - 5.70 | [facility] | | | Cells | | M/uL | LABORATORY | | + + + + + + | Hemoglobin | 14.5 | 13.2 - 17.0 | [facility] | | | | | g/dL | LABORATORY | | + + + + + + | Hematocrit | 45.0 | 39.0 - 50.0 % | [facility] | | | | | | LABORATORY | | + + + + + + | MCV | 87.0 | 80.0 - 100.0 fl | [facility] | | | | | | LABORATORY | | + + + + + + | MCH | 28.0 | 27.0 - 34.0 pg | [facility] | | | | | | LABORATORY | | + + + + + + | MCHC | 32.2 | 32.0 - 35.5 | [facility] | | | | | g/dL | LABORATORY | | + + + + + + | RDW-SD | 47.7 | 37 - 53 fl | [facility] | | | | | | LABORATORY | | + + + + + + | Platelet | 223 | 150 - 400 K/uL | [facility] | | | Count | | | LABORATORY | | + + + + + + | MPV | 9.1 | fl | [facility] | | | | | | LABORATORY | | + + + + + + | Diff Type | AUTOMATED | | [facility] | | | | | | LABORATORY | | + + + + + + | % | 73.19 | % | [facility] | | | Neutrophils | | | LABORATORY | | + + + + + + | % | 13.85 | % | [facility] | | | Lymphocytes | | | LABORATORY | | + + + + + + | Monocyte % | 10.97 | % | [facility] | | | | | | LABORATORY | | + + + + + + | Eosinophils | 1.15 | % | [facility] | | | % | | | LABORATORY | | + + + + + + | Basophils % | 0.84 | % | [facility] | | | | | | LABORATORY | | + + + + + + | Neutrophils | 5.02 | 1.90 - 7.40 | [facility] | | | , Absolute | | K/uL | LABORATORY | | + + + + + + | Absolute | 0.95 (L) | 1.00 - 3.90 | [facility] | | | Lymphocytes | | K/uL | LABORATORY | | + + + + + + | Absolute | 0.75 | 0.00 - 0.80 | [facility] | | | Monocytes | | K/uL | LABORATORY | | + + + + + + | Eosinophils | 0.08 | 0.00 - 0.50 | [facility] | | | , Absolute | | K/uL | LABORATORY | | + + + + + + | Basophils, | 0.06Comment: Testing | 0.00 - 0.10 | [facility] | | | Absolute | performed at [facility];[address] | K/uL | LABORATORY | | | | [address];[place] | | | | | | [address] | | | | + + + + + + + + | Specimen | + + | Blood | + + + + + + + | Performing | Address | City/State/Zipcode | Phone Number | | Organization | | | | + + + + + | [facility] | [address] | [place] [address] | [phone] | + + + + + ECG 12 lead (05/29/2019 12:05 PM PDT) + + + + + + | Component | Value | Ref Range | Performed | Pathologist | | | | | At | Signature | + + + + + + | VENTRICULAR | 73 | BPM | [facility] | | | RATE EKG | | | | | + + + + + + | ATRIAL RATE | 73 | BPM | [facility] | | + + + + + + | P-R | 224 | ms | [facility] | | | INTERVAL | | | | | + + + + + + | QRS | 110 | ms | [facility] | | | DURATION | | | | | + + + + + + | Q-T | 372 | ms | [facility] | | | INTERVAL | | | | | + + + + + + | Q-T | 409 | ms | [facility] | | | INTERVAL | | | | | | (CORRECTED) | | | | | + + + + + + | P WAVE AXIS | 3 | degrees | [facility] | | + + + + + + | QRS AXIS | 37 | degrees | [facility] | | + + + + + + | T AXIS | 43 | degrees | [facility] | | + + + + + + | INTERPRETAT | Sinus rhythm with 1st | | [facility] | | | ION TEXT | degree A-V blockPossible | | | | | | Left atrial | | | | | | enlargementIncomplete | | | | | | right bundle branch | | | | | | blockBorderline ECGWhen | | | | | | compared with ECG of | | | | | | 28-MAY-2019 13:17,No | | | | | | significant change was | | | | | | foundThis ECG contains | | | | | | Unconfirmed | | | | | | Interpretation | | | | | | Statements. See ED | | | | | | Record for Physician | | | | | | Interpretation. | | | | | | Confirmed by MUSE READ | | | | | | ONLY, -COMPUTER ([id number]), | | | | | | newspaper photo editor SHELBI GUERRA | | | | | | ([id number]) on 05/30/2019 | | | | | | 4:53:37 AM | | | | + + + + + + + + | Specimen | + + | | + + + + + | Narrative | Performed At | + + + | | | + + + + +---------+ + + | Performing | Address | City/State/Zipcode | Phone Number | | Organization | | | | + +---------+ + + | [facility] | | | | + +---------+ + + documented in this encounter Visit Diagnoses + + | Diagnosis | + + | Elevated troponin - Primary Other abnormal blood chemistry | + + | Fatigue, unspecified type | + + | History of tachycardia | + + | Recent cerebrovascular accident (CVA) | + + | Coronary artery disease involving [place] coronary artery of [place] heart without | | angina pectoris | + + | History of CEA (carotid endarterectomy) Other postprocedural status | + + | History of CVA (cerebrovascular accident) Transient ischemic attack (TIA), and | | cerebral infarction without residual deficits | + + | Hx of CABG Postsurgical aortocoronary bypass status | + + | Hypertension goal BP (blood pressure) < 140/80 Unspecified essential hypertension | + + | Mixed hyperlipidemia | + + | Polycythemia vera (HCC) | + + documented in this encounter Administered Medications + +--------+ +-------+------+------+ | Medication Order | MAR | Action | Dose | Rate | Site | | | Action | Date | | | | + +--------+ +-------+------+------+ | aspirin chewable tablet 81 mg | Given | 05/30/20 | 81 mg | | | | 81 mg, Oral, DAILY, First dose on | | 19 8:55 | | | | | 05/29/19 at 1815, Retime first | | AM PDT | | | | | dose to TOMORROW if patient has | | | | | | | already received a dose of | | | | | | | aspirin TODAY., | | | | | | + +--------+ +-------+------+------+ +-------+ +-------+---+---+ | Given | 05/29/20 | 81 mg | | | | | 19 7:26 | | | | | | PM PDT | | | | +-------+ +-------+---+---+ +---+---+ | | | +---+---+ + +-------+ +---------+---+---+ | budesonide-formoterol | Given | 05/29/20 | 2 puffs | | | | (SYMBICORT) 160-4.5 mcg/puff | | 19 10:19 | | | | | inhaler 2 puff 2 puff, | | PM PDT | | | | | Inhalation, RT BID, First dose on | | | | | | | 05/29/19 at 2100 | | | | | | + +-------+ +---------+---+---+ +---+---+ | | | +---+---+ + +-------+ +-------+---+---+ | clopidogrel (PLAVIX) tablet 75 | Given | 05/30/20 | 75 mg | | | | mg 75 mg, Oral, DAILY, First | | 19 8:55 | | | | | dose on Tue05/30/19 at 0900 | | AM PDT | | | | + +-------+ +-------+---+---+ +---+---+ | | | +---+---+ + +-------+ +-------+---+---+ | ezetimibe (ZETIA) tablet 10 mg | Given | 05/29/20 | 10 mg | | | | 10 mg, Oral, NIGHTLY, First dose | | 19 10:17 | | | | | on Tue05/29/19 at 2100 | | PM PDT | | | | + +-------+ +-------+---+---+ +---+---+ | | | +---+---+ + +-------+ +-------+---+---+ | losartan (COZAAR) tablet 25 mg | Given | 05/29/20 | 25 mg | | | | 25 mg, Oral, NIGHTLY, First dose | | 19 10:18 | | | | | on Tue05/29/19 at 2100 | | PM PDT | | | | + +-------+ +-------+---+---+ +---+---+ | | | +---+---+ + +-------+ +-------+---+---+ | metoprolol succinate | Given | 05/30/20 | 25 mg | | | | (TOPROL-XL) ER tablet 25 mg 25 | | 19 8:55 | | | | | mg, Oral, DAILY, First dose on | | AM PDT | | | | | 05/30/19 at 0900, Tablet may be | | | | | | | cut where scored but do not | | | | | | | crush., | | | | | | + +-------+ +-------+---+---+ +---+---+ | | | +---+---+ documented in this encounter
--- OUTSIDE RECORDS SUMMARY | ~2020-05-18 | XMS | Clinical Summary ---
Demographics + + + | Address | [address] | | | [place] [address] | + + + | Home Phone | | + + + | Preferred Language | Unknown | + + + | Marital Status | Single | + + + | Islam Affiliation | Unknown | + + + | Race | Unknown | + + + | Ethnic Group | Other Race | + + + Author + + + | Author | [facility] | + + + | Organization | [facility] | + + + | Address | Unknown | + + + | Phone | Unavailable | + + + Care Team Providers + +------+ + | Care Seed Sales Manager Name | Role | Phone | + +------+ + PCP | Unavailable | + +------+ + Source Comments [facility] is fully live on both [facility] and [facility] Allergies Not on File Medications Not on file Active Problems Not on file Social History + +-------+ +--------+------+ | Tobacco [...] on file | | + + + Last Filed Vital Signs Not on file Plan of Treatment + + +-------+ + | Health Maintenance | Due Date | Last | Comments | | | | Done | | + + +-------+ + | Pneumococcal | | | | | vaccination (1 of 2 | 5 | | | | - PCV13) | | | | + + +-------+ + | Influenza (Flu) | | | | | vaccination (#1) | 9 | | | + + +-------+ + Results Not on filefrom Last 3 Months Insurance + +--------+ +--------+ + +--------+ | Payer | Benefi | Subscriber | Effect | Phone | Address | Type | | | t Plan | ID | tc | | | | | | / | | Dates | | | | | | Group | | | | | | + +--------+ +--------+ + +--------+ | MEDICARE | MEDICA | [id number] | 02/25/20 | [phone] | [address] | Medica | | | RE A & | | 05-Pre | 1 | [address] | re | | | B | | sent | | [place] | | | | | | | | [address] | | + +--------+ +--------+ + +--------+ | MODA MEDICARE | MODA | [id number] | 09/15/ | [phone] | [address] | POS | | SUPPLEMENT | MEDICA | | 2015-P | 4 | [id number] | | | | RE | | resent | | [place], | | | | [place]PPLE | | | | [place] [address] | | | | MENT | | | | | | + +--------+ +--------+ + +--------+ + +--------+ +--------+ + + | Guarantor Name | Accoun | Relation to | Date | Phone | Billing Address | | | t Type | Patient | of | | | | | | | | | | + +--------+ +--------+ + + | Simon Mccarthy | Person | Self | [birth year] | [address] | | | al/Fam | | 1940 | [phone] | [place] [address] | | | lee | | | 8 (Home) | | + +--------+ +--------+ + +"
--- OUTSIDE RECORDS SUMMARY | ~2020-05-18 | XMS | Encounter Summary ---
Demographics + + + | Address | [address] | | | [place] [address] | + + + | Home Phone | | + + + | Preferred Language | Unknown | + + + | Marital Status | | + + + | Yazdanism Affiliation | 1041 | + + + | Race | White | + + + | Ethnic Group | Not or | + + + Author + + + | Author | [facility] | | | and [place] | + + + | Organization | [facility] | | | and [place] | + + + | Address | Unknown | + + + | Phone | Unavailable | + + + Support + + + + + | Name | Relationship | Address | Phone | + + + + + | Tera Mccarthy | ECON | [place], [place] | | | | | [address] | | + + + + + | Alicia Mccarthy | ECON | [address] | | | | | [place] [address] | | + + + + + Care Team Providers + +------+ + | Care Open Pit Quarry Supervisor Name | Role | Phone | + +------+ + | Brittany Meehan MD | PCP | | + +------+ + Reason for Visit + +--------+ + | Reason | Onset | Comments | | | Date | | + +--------+ + | Schedule Testing | 05/30/ | 30 day monitor | | | 2018 | | + +--------+ + Encounter Details +--------+ + + + + | Date | Type | Department | Care Team | Description | +--------+ + + + + | 05/30/ | Telephone | [facility] | Jacob Sarkar | Schedule Testing ( | | 2018 | | CARDIOLOGY [place] | [address] | day monitor ) | | | | [address] | [address] | | | | | [place], [place] | [place] [address] | | | | | [address] | [phone] | | | | | [phone] | | | +--------+ + + + [...] this encounter Miscellaneous Notes Telephone Encounter - Xena Chinchilla - 05/30/2019 2:33 PM PDT MD Jacob Gil MD Cc: Xena Chinchilla He need 4 week event monitoring and he should follow up after thanks I was able to leave a message for patient to please give me a call back to schedule. -Xena Polanco documented in this encounter Plan of Treatment +--------+---------+ + + + | Date | Type | Specialty | Care Team | Description | +--------+---------+ + + + | 06/25/ | Office | Cardiology | Connie Alvarez | | | 2020 | Visit | | [address] | | | | | | [address] | | | | | | [place] [address] | | | | | | [phone] | | | | | | | | +--------+---------+ + + + documented as of this encounter Visit Diagnoses Not on filedocumented in this encounter"
--- OUTSIDE RECORDS SUMMARY | ~2020-05-18 | XMS | Encounter Summary ---
Demographics + + + | Address | [address] | | | [place] [address] | + + + | Home Phone | | + + + | Preferred Language | Unknown | + + + | Marital Status | | + + + | Zoroastrianism Affiliation | 1041 | + + + | Race | White | + + + | Ethnic Group | Not or | + + + Author + + + | Author | [facility] | | | and [place] | + + + | Organization | [facility] | | | and [place] | + + + | Address | Unknown | + + + | Phone | Unavailable | + + + Support + + + + + | Name | Relationship | Address | Phone | + + + + + | Tera Mccarthy | ECON | [place], [place] | | | | | [address] | | + + + + + | Alicia Mccarthy | ECON | [address] | | | | | [place] [address] | | + + + + + Care Team Providers + +------+ + | Care District Claims Manager Name | Role | Phone | + +------+ + PCP | Unavailable | + +------+ + Encounter Details +--------+ + + + + | Date | Type | Department | Care Team | Description | +--------+ + + + + | 05/26/ | Hospital | [facility] | Viktor Crisostomo | | | 2004 | Encounter | MED CTR GENERIC OP | MD [address] | | | | | CONV DEPT [address] | [place], [place] | | | | | [place], | [address] | | | | | [place] [address] | | | | | | [phone] | | | +--------+ + + + [...] [address] | | | | | | [place] [address] | | | | | | [phone] | | | | | | | | +--------+---------+ + + + documented as of this encounter Visit Diagnoses Not on filedocumented in this encounter"
--- OUTSIDE RECORDS SUMMARY | ~2020-05-18 | XMS | Encounter Summary ---
Demographics + + + | Address | [address] | | | [place] [address] | + + + | Home Phone | | + + + | Preferred Language | Unknown | + + + | Marital Status | | + + + | Faith Affiliation | 1041 | + + + | Race | White | + + + | Ethnic Group | Not or | + + + Author + + + | Author | [facility] | | | and [place] | + + + | Organization | [facility] | | | and [place] | + + + | Address | Unknown | + + + | Phone | Unavailable | + + + Support + + + + + | Name | Relationship | Address | Phone | + + + + + | Tera Mccarthy | ECON | [place], [place] | | | | | [address] | | + + + + + | Alicia Mccarthy | ECON | [address] | | | | | [place] [address] | | + + + + + Care Team Providers + +------+ + | Care Spent Grain Dryer Name | Role | Phone | + +------+ + PCP | Unavailable | + +------+ + Encounter Details +--------+ + + + + | Date | Type | Department | Care Team | Description | +--------+ + + + + | 03/16/ | Abstract | [facility] | Lio Mendez, | Benign essential | | 2012 | | PULMONARY [address] | MD [address] | hypertension | | | | [place], | [place], [place] | (Primary Dx); Cough | | | | [place] [address] | [address] | variant asthma; Hay | | | | [phone] | | fever; ASHD | | | | | | (arteriosclerotic | | | | | | heart disease); | | | | | | Ventricular | | | | | | pre-excitation; | | | | | | Nasal and sinus | | | | | | discharge; Sciatica; | | | | | | Hyperlipidemia; | | | | | | Trigeminy; Myalgia; | | | | | | Atherosclerosis; | | | | | | Glucose intolerance | | | | | | (impaired glucose | | | | | | tolerance); BPH | | | | | | without urinary | | | | | | obstruction | +--------+ + + + + Social [...] +---------+ + | Yes | | | | + + +---------+ + + + [...] + + + | Blood Pressure | 114/72 | 03/07/2013 3:50 PM | | | | | PDT | | + + + + + | Pulse | 68 | 03/07/2013 3:50 PM | | | | | PDT | | + + + + + | Temperature | - | - | | + + + + + | Respiratory Rate | 16 | 03/07/2013 3:50 PM | | | | | PDT | | + + + + + | Oxygen Saturation | - | - | | + + + + + | Inhaled Oxygen | - | - | | | Concentration | | | | + + + + + | Weight | 79.8 kg (176 lb) | 03/07/2013 3:50 PM | | | | | PDT | | + + + + + | Height | 175.3 cm (5' 9") | 03/07/2013 3:50 PM | | | | | PDT | | + + + + + | Body Mass Index | 25.99 | 03/07/2013 3:50 PM | | | | | PDT | | + + + + + documented in this encounter Plan of Treatment +--------+---------+ + + + | Date | Type | Specialty | Care Team | Description | +--------+---------+ + + + | 06/25/ | Office | Cardiology | Connie Alvarez | | | 2020 | Visit | | [address] | | | | | | [address] | | | | | | [place] [address] | | | | | | [phone] | | | | | | | | +--------+---------+ + + + documented as of this encounter Visit Diagnoses + + | Diagnosis | + + | Benign essential hypertension - Primary Essential hypertension, benign | + + | Cough variant asthma | + + | Hay fever Allergic rhinitis, cause unspecified | + + | ASHD (arteriosclerotic heart disease) Coronary atherosclerosis of unspecified type of | | vessel, [place] or graft | + + | 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
--- OUTSIDE RECORDS SUMMARY | ~2020-05-18 | XMS | Encounter Summary ---
Demographics + + + | Address | [address] | | | [place] [address] | + + + | Home Phone | | + + + | Preferred Language | Unknown | + + + | Marital Status | | + + + | Hoahaoism Affiliation | [id number] | + + + | Race | White | + + + | Ethnic Group | Not or | + + + Author + + + | Author | [facility] | | | and [place] | + + + | Organization | [facility] | | | and [place] | + + + | Address | Unknown | + + + | Phone | Unavailable | + + + Support + + + + + | Name | Relationship | Address | Phone | + + + + + | Tera Mccarthy | ECON | [place], [place] | | | | | [phone] | | + + + + + | Alicia Mccarthy | ECON | [address] | | | | | [place] [address] | | + + + + + Care Team Providers + +------+ + | Care Desk Clerks Supervisor Name | Role | Phone | + +------+ + | Brittany Meehan MD | PCP | | + +------+ + Reason for Visit + + + | Reason | Comments | + + + | Follow-up, Office | One month | | Visit | | + + + Encounter Details +--------+---------+ + + + | Date | Type | Department | Care Team | Description | +--------+---------+ + + + | 06/19/ | Office | [facility] | Connie Alvarez | SVT | | 2019 | Visit | [facility] [place] | [address] | (supraventricular | | | | [address] | [address] | tachycardia) (HCC) | | | | [address] [place] | [place] [address] | (Primary Dx); | | | | [address] | [phone] | Coronary artery | | | | [phone] | | disease involving | | | | | | penobscot coronary | | | | | | artery of penobscot | | | | | | heart without angina | | | | | | pectoris; Hx of | | | | | | CABG; History of CVA | | | | | | in adulthood; | | | | | | History of CVA | | | | | | (cerebrovascular | | | | | | accident); Facial | | | | | | droop; Dyslipidemia; | | | | | | Bilateral carotid | | | | | | bruits; Mixed | | | | | | hyperlipidemia; | | | | | | Hypertension goal BP | | | | | | (blood pressure) < | | | | | | 140/80; History of | | | | | | CEA (carotid | | | | | | endarterectomy); | | | | | | Peripheral arterial | | | | | | disease (HCC); | | | | | | Asymmetric septal | | | | | | hypertrophy (HCC); | | | | | | Moderate mitral | | | | | | regurgitation by | | | | | | prior | | | | | | echocardiogram; Risk | | | | | | factors for | | | | | | obstructive sleep | | | | | | apnea; Polycythemia | | | | | | vera ([facility]); Hospital | | | | | | discharge | | | | | | follow-up; Encounter | | | | | | for monitoring | | | | | | digoxin therapy; | | | | | | Tachyarrhythmia; | | | | | | Abdominal aortic | | | | | | aneurysm (AAA) | | | | | | without rupture | | | | | | ([facility]) | +--------+---------+ + + + Social History [...] + + + | Blood Pressure | 132/76 | 06/19/2019 1:49 PM | | | | | PDT | | + + + + + | Pulse | 70 | 06/19/2019 1:49 PM | | | | | PDT | | + + + + + | Temperature | - | - | | + + + + + | Respiratory Rate | - | - | | + + + + + | Oxygen Saturation | 98% | 06/19/2019 1:49 PM | | | | | PDT | | + + + + + | Inhaled Oxygen | - | - | | | Concentration | | | | + + + + + | Weight | 77.6 kg (171 lb) | 06/19/2019 1:49 PM | | | | | PDT | | + + + + + | Height | 175.3 cm (5' 9") | 06/19/2019 1:49 PM | | | | | PDT | | + + + + + | Body Mass Index | 25.25 | 06/19/2019 1:49 PM | | | | | PDT [...] + + documented as of this encounter Patient Instructions Patient Instructions Connie Alvarez, MICHAEL - 06/19/2019 1:30 PM PDTI have ordered you a 2 week event monitor which will be set up in about 1-2 weeks Continue to take metoprolol XL 50 mg in the morning, Take losartan 50 mg at night, so whole pill, start tonight Continue to take Ezetimibe ( Zetia) 10 mg at night Continue to take Plavix 75 mg in the morning, I have added Digoxin 125 mcg To your morning medications to help with Fast heart rates See me back in 6 weeks Get non fasting labs in one month at [facility] labs in [place] to done before you see me back documented in this encounter Progress Notes Connie Alvarez FNP - 06/19/2019 1:30 PM PDTFormatting of this note might be differe nt from the original. Date of visit: 06/20/2019 Primary Care Physician: Brittany Meehan MD CHIEF COMPLAINT: Chief Complaint Patient presents with Follow-up, Office Visit One month HISTORY OF PRESENT ILLNESS: Mr. Simon MccarthyBetinapanda, is a 79-year-old man who is here today to follow up response to my medication changes that I had made when I saw him last on May 23, and for 2 hospita lizations in May since I saw him last. He is accompanied by his son Dougie today who contributed to history, and also drove him to the appointment. He is a patient of Dr. Lim and last seen by him in July 2016, and has not followed u p with him since Dr. Lim stopped coming to [place], as difficult for him He has a history of coronary artery disease with prior 6 vessel bypass grafting in 2008 , carotid disease with bilateral endarterectomy in 2009, lower extremity peripheral arterial disease with no claudication, hypertension, and hyperlipidemia with statin intolerance, austin ycythemia vera which was being treated with phlebotomy, and previous PCP, Dr. Muñoz. noted that his hematocrit had dropped and stayed down after 4 phlebotomies, with last CBC 01/[address] Muñoz retired in February 2018 documented ongoing problems with dyspnea with intermittent respiratory infections and exacerbations, and that polycythemia vera had been controlled wi th 4 phlebotomies. He also documented he had also recommended he be evaluated for sleep tarp repairer ea, but the patient had declined, as he did not think he could wear CPAP I had seen him last in 05/23/2019 when I followed up with him on results of his echo, flores tid ultrasound, response to fenofibrate 145 mg, and metoprolol XL 25 mg. He was also hospit alized at [facility] on May 16 at [facility] for right MCA stroke On that visit I told him to take his metoprolol XL 25 mg in the morning, to decrease hi s losartan to 25 mg and take it at night, to stop his fenofibrate and atorvastatin for 2 wee ks as he thought he was having increased myalgias, increased swelling to his thumbs and then to start back on atorvastatin 40 mg to see how he tolerated it, to continue Plavix 75 mg in the morning and ordered an updated CMP and lipid panel and asked him to bring in a home blo od pressure log, and his home blood pressure cuff for me to verify His current and previous testing and procedures are detailed below. He was previously hospitalized from May 16 until May 19 [facility] with acute CVA and consulted by neurologist Dr. 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 He was also asymptomatic with left carotid artery saccul ar aneurysm, , which was consulted on by vascular surgeon Dr. Centeno Since I saw him last, he was hospitalized again May 29 to May 30 for increase d heart rate of 150 bpm, and mildly elevated troponin that was stable, and he was discharged with an event monitor ordered by Dr. Sarkar to be performed as an outpatient. On the day of his discharge he was driving home and then felt a warm sensation across his c hest, and his heart rate was again 140 bpm. He also had a sharp pain to the right side of his chest, and apparently had been started on Zetia and symptoms were worse with exertion an d improved with lying down or sitting. He was readmitted He was discharged again on June 01 , and diagnosed with SVT, and cardiology was cons ulted during the second stay. He was started on metoprolol XL, which he had been on previou kell. He was also noted to incidentally have an abdominal aortic aneurysm, as well as a 6 mm asym ptomatic nonobstructive calculus to his right kidney discovered on renal ultrasound, and acu te kidney injury resolved with IV hydration, and urology also consulted. He was discharged on Plavix 75 mg, Zetia 10 mg, losartan 25 mg daily, and metoprolol XL 50 mg daily. Today he reports he feels very tired, and also reports that he had another incident of high heart rates in the 130's this morning, with systolic blood pressure in the 120s, but had p reviously had systolic blood pressure in the 140-155 range, with heart rates in the 80s. He reports he has ongoing fatigue, and diminished activity tolerance but denies any chest p ain, central or peripheral edema, but does note some lightheadedness when his heart rate is fast, but denies any syncope. He continues to recover from his stroke, and has less noticea ble left-sided facial droop, and speech has remained clear, but his memory has been worse la tely. Eyes any new signs or symptoms of stroke or TIA. He brought all of his medications to the clinic today,and personally reviewed by me He had previously establish care establishing care with PCP in [place], Dr. Brittany nation, who he had also seen in urgent care for bronchiectasis, and had first clinic visit with er in February, and will see her next in July, as she has been away on maternity daily He has remained quite from chewing tobacco since 2008, has never smoked,rarely drinks alcoh ol and drinks 2 servings of coffee daily. He is , and his has been experiencing more health issues which has been a con cern for him. REVIEW OF SYSTEMS: Negative except for pertinent items noted in HPI. Constitutional: Denies fatigue or unexplained weight loss. Appetite is good. Weight is st able. Denies night sweats fevers or chills HENT: Denies nosebleeds. Moderate hearing loss Denies dysphagia Eyes: Hx cataract surgery, Denies visual disturbance or double vision. Denies history of g laucoma or macular degeneration. Respiratory/Sleep:: Hx chronic congestion hay fever, mild chronic QUIROZ Chronic sinus/nasa l problems with chronic bronchitis type syndrome, intermittent asthma, previously evaluated by ENT and pulmonology without ongoing benefit from inhalers. Primary benefit from periodic Kenalog shots and occasional courses of this Zithromax and/or doxycycline.Denies cough Den ies hemoptysis or excessive sputum production. Reports occasional snoring, denies orthopnea , PND. Referred for sleep apnea evaluation 07/2017, patient declined Cardiovascular: c/o intermittent fast heart rates. Denies chest pain,and leg swelling. De nies history of rheumatic fever. Denies claudication . Gastrointestinal: GERD, on PPI . Denies nausea, vomiting, abdominal pain and blood in st ool. Genitourinary: Denies hematuria. history of BPH, new 6 mm nonobstructive kidney stone,w/ WINSOME 05/2019 Musculoskeletal:Hx arthralgia Fingers, shoulders, elbows , sciatica, Denies myalgias, Skin: Denies color change. 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 Denies history of stroke/Transient ischemic attack.Denies history of seizures. Den ies Syncope. Denies focal motor or sensory deficits Hematological/Oncology Hx polycythemia vera [place] with phlebotomies, 4 in 2015 . PCP notes he has true polycythemia and had complete evaluation and hemochromatosis has been ruled out.Do es not bruise/bleed easily. Denies history of cancer Endocrine: Denies diabetes or thyroid disease. Denies excessive thirst or hunger. Psychiatric/Behavioral: denies any history of depression or anxiety or other psychiatric i llness. Vaccines: Current on 06/2018 flu vaccine. Current on pneumonia vaccine. Habits/Social : Denies history of smoking, hx of chewing tobacco, 2000. rare EtOH use. Dri nks 2 servings of caffeine daily . Denies recreational or illicit drug use. 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 . His mother , Robyn , is also my patient. Outpatient Medications Prior to Visit Medication Sig Dispense Refill clopidogrel (PLAVIX) 75 mg tablet Take 1 tablet by mouth Daily. 30 tablet 0 ezetimibe (ZETIA) 10 mg tablet Take 1 tablet by mouth nightly for 30 days. 30 tablet 0 fluticasone-salmeterol (ADVAIR, WIXELA INHUB) 250-50 mcg/puff diskus inhaler Inhale 1 p uff into the lungs 2 (two) times daily. losartan (COZAAR) 50 mg tablet Take 0.5 tablets by mouth Daily. 30 tablet 0 metoprolol succinate (TOPROL-XL) 50 mg 24 hr tablet Take 1 tablet by mouth Daily for 30 days. 30 tablet 0 No facility-administered medications prior to visit. PHYSICAL EXAM: Wt Readings from Last 3 Encounters: 06/19/19 77.6 kg (171 lb) 05/31/19 76.2 kg (168 lb 1.6 oz) 05/29/19 77.6 kg (171 lb 1.6 oz) Temp Readings from Last 3 Encounters: 06/01/19 36.4 C (97.6 F) (Oral) 05/30/19 36.6 C (97.9 F) (Oral) 05/28/19 36.7 C (98 F) (Temporal) BP Readings from Last 3 Encounters: 06/19/19 132/76 06/01/19 136/70 05/30/19 104/53 Pulse Readings from Last 3 Encounters: 06/19/19 70 06/01/19 67 05/30/19 71 GENERAL: Well developed, well nourished, in no distress. Appears approximately stated age . HEENT: Normocephalic, atraumatic. EYES: PERRL, EOM normal. MOUTH: Oral mucosae moist, dentition adequate, no lesions noted NECK: Well healed bilateral CEA scars mild bilateral bruit No JVD, lymphadenopathy, thyro megaly Carotid pulses are 2+ bilaterally LUNGS/CHEST: Clear bilaterally, with no rales, rhonchi or wheezing noted, respirations unl abored HEART: Well healed sternotomy, no crepitus Nondisplaced PMI, regular rate and rhythm, S1, S2 normal.2/6 murmur LUSB No, rubs or gallops noted. ABDOMEN: Soft, nontender, no organomegaly, masses or bruits. Bowel sounds are normal in a ll 4 quadrants. The abdominal aortic pulsation is not palpable. EXTREMITIES: No edema. Radial pulses 2+ bilaterally. Femoral pulses are 2+ bilaterally wi thout bruits. DP and PT pulses are 2+ left, 1+ on left . No clubbing.. Right SVG donor sca r full leg, well healed SKIN: Warm and dry, capillary refill is normal, no lesions. NEUROLOGIC: Awake, alert and oriented x 3. Left-sided facial droop, tongue deviates to th e left, eyebrow raise symmetrical, smile shows left-sided droop, no motor or sensory deficit s to arms or legs, speech no longer slurred, gait is normal. PSYCHIATRIC: Appropriate, affect appears normal DATA: Blood tests: Lab Results Component Value Date WBC 7.64 05/30/2019 RBC 5.20 05/30/2019 HGB 14.8 05/30/2019 HCT 45.3 05/30/2019 PLT 233 05/30/2019 Lab Results Component Value Date NA 144 06/01/2019 K 4.3 06/01/2019 CL 111 (H) 06/01/2019 CO2 26 06/01/2019 ANIONGAP 11 06/01/2019 BUN 17 06/01/2019 EGFR >60 06/01/2019 Lab Results Component Value Date CHOL 104 05/31/2019 TRIG 70 05/31/2019 LDL 59 05/31/2019 Lab Results Component Value Date BNP 98.24 06/01/2019 TSH 3.630 05/28/2019 No results found for: TOTEPI CARDIAC PROCEDURES/IMAGING Angiogram: 2008: Multivessel occlusive coronary artery disease: LAD diagonal and le ft circumflex ostium of ramus, RCA, right PDA, distal left main stenosis estimated at 60% to 70%.Normal left ventricular systolic function. Normal left ventricular pressures. - CAB07/02/2009: CABG x 6: PFEIFFER to LAD, saphenous vein graft to diagonal, sequential to ra mus, saphenous vein to marginal, saphenous vein to PDA, saphenous vein to distal right) Dr. Carlin Right leg V CU ECHO Last echo: 05/17/2019 ([facility]): EF 75%. LV normal in size with moderate LVH. RV normal in si ze and function. Normal size left atrium, mildly dilated right atrium. Intra-arterial sept um normal. Aortic valve trileaflet, mild calcification of aortic valve, mild aortic stenosi s Aortic valve area by continuity equation is 1.87 cm2. Mean aortic valve gradient 8.12 mmH g, trace AI. Mildly calcified mitral valve, mild MAC, trace MR. Trace TR. Pulmonic valve normal, trace PI. Normal-sized aortic root, dilated ascending aorta 4.37 cm IVC WNL, RAP 3. Normal right-sided pressures, no pulmonary hypertension. No pericardial effusion Echo: 04/26/2019: [facility]: Sinus rhythm, EF 65-70%. LV normal in size, but measures 4. 6 cm at end diastole, previously 3.7. No regional wall motion abnormalities indeterminate d iastolic function, previously grade 1. Mild asymmetric septal hypertrophy with septal thick ness of 14 mm, stable. RV normal in size and function. Normal size atria. Aortic valve tr ileaflet, mildly thickened and calcified, mild AI, no aortic stenosis. Normal mitral valve, mild to moderate MR, no MVP. Tricuspid valve normal, mild TR. No pulmonary hypertension, RVSP 17 mmHg plus CVP. Trace PI. No pericardial effusion. IVC not visualized ascending ao rta mildly dilated measuring up to 3.9 cm, stable. No mass, no clot. No ASD, no VSD Echo: 05/16/2018: Technically adequate study. Resting bradycardia. EF 60-65 percent. LV normal in size and wall thickness. Moderate asymmetric septal hypertrophy with septal thick ness 16-19 mm. Mild diastolic dysfunction, grade 1. RV normal in size and function. Adrienne l size atria. Aortic valve mildly calcified, mild aortic regurgitation and no aortic stenos is. Mitral valve thickened with nodular degeneration, mild to moderate MR. Mild TR. No pu lmonary hypertension. Mild MS. No pericardial effusion. IVC not well visualized. No mass , no clot VASCULAR PROCEDURES/ IMAGING Ct Angiogram Head Neck Acute Stroke:05/16/2019:[facility] w/ stroke: 1. The right vertebral artery is extremely narrow in caliber throughout its entire course d espite a relatively normal size of the foramen transversarium. This suggests extensive dis section of the right vertebral artery. The artery appears to occlude at the C1 level prior to entering the foramen magnum. It reconstitutes via retrograde flow from the basilar art ziggy to supply the right posterior inferior cerebellar artery. 2. Bilateral carotid endartere ctomy is noted. A saccular aneurysm arises from the lateral margin of the left carotid bul b with a mouth measuring 6.7 x 9.4 mm and a dome height of 3.7 mm. 3. No acute intracranial findings Brain MRI:05/17/2019: [facility] w/ stroke: Abnormal diffusion restriction is seen in the right centrum semiovale compatible with an area of acute infarction. CEA: 02/2010: Right and left carotid artery endarterectomy Last carotid ultrasound: 04/26/2019:( [facility]) Atheromatous changes in the carotid arteries maik aterally without evidence of a hemodynamically significant carotid stenosis. Findings suggestive of a flow-limiting stenosis in the proximal right subclavian artery. This may also explain the diminished velocity in the right vertebral artery. If further ev aluation would change the patient's treatment, CT angiography of the neck is recommended wit h attention to the right subclavian and right vertebral arteries. Carotid ultrasound 2016: Right internal carotid artery status post CEA minimal thick ening, left internal carotid artery status post CEA minimal thickening. Right subclavian ar jazzy 20-49 percent stenosis., 20-49 percent stenosis to left subclavian artery EKG/EVENT MONITOR EK2013. Sinus rhythm with first-degree AV block, incomplete right bundle branch b lock, ST elevation to anterior leads. Rate 67 bpm, MS 226 ms, QRS 108 ms, QTC 388 ms EK: Normal sinus rhythm, incomplete bundle branch block, prior septal infarct . First-degree A-V block. Rate 80 bpm, MS 206 ms, QRS 106 ms, QTC 420 ms (personally revie wed by me in the office today and when compared to EKG done in 2013 MS interval has decrease d ) EK05/31/2018: Sinus rhythm with first-degree AV block, incomplete right bundle branch bloc k. Old septal infarct Rate 60 bpm, MS 230 ms, QRS 108 ms, QTC 390 ms him a tracing persona lly reviewed by me, similar morphology to July 2017 EKG, except for increased first-degr ee block EK05/16/2019: Sinus rhythm with first-degree AV block, incomplete right bundle branch blo ck, LVH, old septal infarct w/ low voltage QRS leads II aVF. Rate 61 bpm, MS 226 ms, QRS 11 0 ms, QTC 410 ms, tracing personally reviewed by me EK05/23/2019: Sinus rhythm with first-degree AV block, stable incomplete right bundle bra nch block, LVH, old septal infarct. Rate 70 bpm, MS 230 ms, QRS 140 ms, QTC 410 ms, tracing personally reviewed by me, and similar morphology to previous EKG performed in April 2019, in May 2018 EK05/30/2019:( [facility]) Sinus rhythm with first-degree block, incomplete right bundle branch block, old inferior infarct. Rate 76 bpm, MS 222 ms, QRS 106 ms, QTC 398 ms tracing person ally reviewed by me. EK06/01/2019: ( [facility]) SVT, incomplete right bundle branch block. Rate 124 bpm, QRS 108 ms , QTC 451 ms, tracing personally reviewed by me EK06/19/2019: ( metoprolol XL 50 mg) sinus rhythm with first-degree AV block and septal i nfarct, incomplete right bundle branch block. Rate 64 bpm, MS 224 ms, QRS 108 ms, QTC 402 m s, tracing personally reviewed by me LABS: Labs: 03/14: Lipids: Cholesterol 195, triglycerides 74, HDL 60, LDL 120, ratio 3.3. S odium 141, potassium 4.2, chloride 108, glucose 89, BUN 27, creatinine 1.27, GFR 55 AST 14, ALT 12, alk phos 75, total bilirubin 0.6, albumin 4, A1c 5.9. CBC: WBC 7.9, hemoglobin 14.4 , hematocrit 52.6, platelets 241 Labs: 10/19/2017: Lipids: (No statin). Cholesterol 193, triglycerides 140, HDL 44.4, LDL 12 1, LDL VLDL 28, ratio 4.3, non-HDL cholesterol 149. CMP: Sodium 141, potassium 4.3, chlorid e 106, glucose 74, BUN 21, creatinine 1.11, GFR 64, AST 16, ALT 10, alk phos 70, total bilir ubin 0.8, albumin 3.8. Hemoglobin A1c 5.7. PSA 0.94. CBC: WBC 5.3, hemoglobin 14.5, hemat ocrit 44.3, platelets 215, ESR 0 Labs: 02/14/2018: Iron deficiency panel: Iron 21.07, TIBC 436, percent sat 4.8, ferritin 18. 04, U TIBC 415, transferrin 311.29. CMP: Sodium 141, potassium 4.9, chloride 106, glucose 8 4, BUN 16, creatinine 1.19, AST 18, ALT 12, alk phos 70, total bilirubin 0.5, albumin 3.8. Hemoglobin A1c 6. (126). Vitamin B12 298.7. CBC: WBC 8.6, hemoglobin 12.5, hematocrit 30. 8, platelets 235 Labs: 11/27/2018: Lipids: Cholesterol 208, triglycerides 103, HDL 49.9, LDL 138, VLDL 21, rat io 4.2, non-HDL cholesterol 158. CMP: Sodium 142, potassium 4.6, chloride 107, glucose 124, BUN 20, creatinine 1.23, AST 20, ALT 13, alk phos 71, total bilirubin 1.1, GFR 57, albumin 3.9 Labs: 05/16/2019: CBC: WBC 6.5, RBC 5.34, hemoglobin 14.9, hematocrit 45.8, platelets 222. CMP: Sodium 142, potassium 4.2, chloride 110, glucose 96, BUN 15, creatinine 1.14, albumin 4 .5, total bili 0.8, alk phos 89, AST 22, ALT 13, GFR >68 troponin T 0.022. Lipids: Choleste rol 196, triglycerides 104, HDL 51, LDL 124 Labs: 05/17/2019: BMP: Sodium 144, potassium 4.1, chloride 110, glucose 102 BUN 15, creatini ne 1.1, GFR >68 CBC: WBC 4.26, RBC 4.7, hemoglobin 13.2, hematocrit 40.6, platelets 192. He moglobin A1c 5.6 (114) magnesium 2. Phosphorus 2.6 Labs: 05/30/2019: CMP: Sodium 143, potassium 4.2, chloride 109, glucose 113, BUN 22, creatini ne 1.68, albumin 3.9, total bili 0.5, alk phos 92, AST 17, ALT 8, GFR 40. CBC: WBC 7.64, RB C 5.2, hemoglobin 14.8, hematocrit 45.3, platelets 233 Labs: 05/31/2019: Lipids: ( Zetia 10 mg) Cholesterol 104, triglycerides 70, HDL 31, LDL 59. BNP 70. Uric acid 5.1 Labs: 06/01/2019: BNP 98.24. BMP: Sodium 144, potassium 4.3, chloride 111, glucose 132, BUN 17, creatinine 1.14, GFR >60 ASSESSMENT & PLAN: He was here today to follow-up on recent hospitalizations for SVT and tachyarrhythmias, a s well as ongoing symptoms of fast heart rates, and labile blood pressures. He has problems as detailed below. His EKG performed in the clinic today shows stable sinus rhythm at 64 bpm with first-degre e AV block.. I discussed with him and his son that I was concerned his ongoing episodes of fast hear t rate with him as of lightheadedness, and labile blood pressure, especially with his recent stroke I have ordered a 2-week event monitor to evaluate him for tachybradycardia syndrome, as well as atrial fibrillation or flutter. For his cardiac medications, I have instructed him to take his metoprolol XL 50 mg in th e morning, but to take his losartan 50 mg, increased from 25 mg, at night, continue to take Zetia 10 mg at night intolerant of statins like to continue to take Plavix 75 mg in the morn ing, and I have also added digoxin 125 mcg to take in the morning to help better control his heart rate, without increasing his hypotension or dizziness. I have ordered a BMP and digoxin level to be performed in 1 month at [facility] in [place], with copies to be sent to his PCP, Dr.Gwen Meehan. I will see him back in 6 weeks, and will also have him establish care with Dr. 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 He will also need to be off Plavix for this procedure, and I would like to consult with h is neurologist, and vascular surgeon prior to stopping it. He will follow up with his neurologist Dr. Reese on June 25, and I will see him jolly on August 15 low up on his event monitor. 1. SVT (supraventricular tachycardia) (HCC) 2. Coronary artery disease involving penobscot coronary artery of penobscot heart without angina pectoris 3. Hx of CABG 4. History of CVA in adulthood 5. History of CVA (cerebrovascular accident) 6. Facial droop 7. Dyslipidemia 8. Bilateral carotid bruits 9. Mixed hyperlipidemia 10. Hypertension goal BP (blood pressure) < 140/80 11. History of CEA (carotid endarterectomy) 12. Peripheral arterial disease (HCC) 13. Asymmetric septal hypertrophy (HCC) 14. Moderate mitral regurgitation by prior echocardiogram 15. Risk factors for obstructive sleep apnea 16. Polycythemia vera (HCC) 17. Hospital discharge follow-up 18. Encounter for monitoring digoxin therapy 19. Tachyarrhythmia 20. Abdominal aortic aneurysm (AAA) without rupture (HCC) Orders Placed This Encounter Procedures Digoxin Level Basic Metabolic Panel ECG 12 lead Event monitor - 2 week The following portions of the patient's history were personally reviewed by me and updated as appropriate: EKG tracings, other specialty provider and PCP notes,any Hospital admission and discharge summaries, any ER records , current and previous cardiac testing and procedure reports and d melvin, home heart rate and blood pressure log, medication bottles brought to visit today pers onally reviewed by me. Allergies, current medications.labs Family history, past medical history, past social history, past surgical history. Problem list. Poly REESE [facility] Cardiology 06/20/2019 docume nted in this encounter Plan of Treatment +--------+---------+ + + + | Date | Type | Specialty | Care Team | Description | +--------+---------+ + + + | 06/25/ | Office | Cardiology | Connie Alvarez | | | 2019 | Visit | | [address] | | | | | | [address] | | | | | | [place] [address] | | | | | | [phone] | | | | | | | | +--------+---------+ + + + + +------+--------+ + + | Name | Type | Priori | Associated Diagnoses | Order Schedule | | | | ty | | | + +------+--------+ + + | Event monitor - 2 | ECG | Routin | SVT | Expected: | | week | | e | (supraventricular | 06/26/2019, Expires: | | | | | tachycardia) (HCC) | 06/19/2020 | | | | | Tachyarrhythmia | | + +------+--------+ + + documented as of this encounter Procedures + +--------+ + + + | Procedure Name | Priori | Date/Time | Associated Diagnosis | Comments | | | ty | | | | + +--------+ + + + | ECG 12 LEAD | Routin | 06/19/2019 | SVT | Results for this | | | e | 1:45 PM | (supraventricular | procedure are in the | | | | PDT | tachycardia) ([facility]) | results section. | | | | | Coronary artery | | | | | | disease involving | | | | | | penobscot coronary | | | | | | artery of penobscot | | | | | | heart without angina | | | | | | pectoris Hx of | | | | | | CABG History of CVA | | | | | | in adulthood | | | | | | History of CVA | | | | | | (cerebrovascular | | | | | | accident) Facial | | | | | | droop Dyslipidemia | | | | | | Bilateral carotid | | | | | | bruits Mixed | | | | | | hyperlipidemia | | | | | | Hypertension goal BP | | | | | | (blood pressure) < | | | | | | 140/80 History of | | | | | | CEA (carotid | | | | | | endarterectomy) | | | | | | Peripheral arterial | | | | | | disease ([facility]) | | | | | | Asymmetric septal | | | | | | hypertrophy ([facility]) | | | | | | Moderate mitral | | | | | | regurgitation by | | | | | | prior echocardiogram | | | | | | Risk factors for | | | | | | obstructive sleep | | | | | | apnea Polycythemia | | | | | | iraan ([facility]) [facility] | | | | | | discharge follow-up | | + +--------+ + + + documented in this encounter Results Basic Metabolic Panel (07/09/2019 12:16 PM PDT) + + + + + + | Component | Value | Ref Range | Performed | Pathologist | | | | | At | Signature | + + + + + + | Na | 142 | 135 - 145 | REFERENCE | | | | | mmol/L | LAB | | | | | | [facility] | | | | | | [facility] | | + + + + + + | K | 5.2 (H) | 3.5 - 4.9 | REFERENCE | | | | | mmol/L | LAB | | | | | | [facility] | | | | | | [facility] | | + + + + + + | Cl | 107 | 99 - 109 mmol/L | REFERENCE | | | | | | LAB | | | | | | [facility] | | | | | | [facility] | | + + + + + + | CO2 | 27 | 23 - 32 mmol/L | REFERENCE | | | | | | LAB | | | | | | [facility] | | | | | | [facility] | | + + + + + + | Anion Gap | 13 | 5 - 20 mmol/L | REFERENCE | | | | | | LAB | | | | | | [facility] | | | | | | [facility] | | + + + + + + | Glucose | 80 | 65 - 99 mg/dL | REFERENCE | | | | | | LAB | | | | | | [facility] | | | | | | [facility] | | + + + + + + | BUN | 19 | 8 - 25 mg/dL | REFERENCE | | | | | | LAB | | | | | | [facility] | | | | | | [facility] | | + + + + + + | Creatinine | 1.3 | 0.70 - 1.30 | REFERENCE | | | | | mg/dL | LAB | | | | | | [facility] | | | | | | [facility] | | + + + + + + | BUN/Creatin | 15 | | REFERENCE | | | ine Ratio | | | LAB | | | | | | [facility] | | | | | | [facility] | | + + + + + + | Calcium | 9.2 | 8.5 - 10.5 | REFERENCE | | | | | mg/dL | LAB | | | | | | [facility] | | | | | | [facility]OR[facility] | | + + + + + + | Estimated | 53 (L)Comment: GFR <60: | >60 | REFERENCE | | | GFR | CHRONIC KIDNEY DISEASE, | mL/min/1.73m2 | LAB | | | | IF FOUND OVER A 3 MONTH | | [facility] | | | | PERIOD.GFR <15: KIDNEY | | LABORATORY | | | | FAILURE.FOR | | | | | | AMERICANS, MULTIPLY THE | | | | | | CALCULATED GFR BY | | | | | | 1.210.This eGFR is | | | | | | calculated using the | | | | | | MDRD IDND traceable | | | | | | equation.Testing | | | | | | performed at [facility];[address] | | | | | | [facility] | | | | | | [facility];[place] [address] | | | | | | | | | | + + + + + + + + | Specimen | + + | Blood | + + + + + + + | Performing | Address | City/State/Zipcode | Phone Number | | Organization | | | | + + + + + | REFERENCE LAB | [address] | [place] | [phone] | | [facility] | [address] | [address] | | | LABORATORY | | | | + + + + + | REFERENCE LAB | [address] | [place] | | | [facility] | [address] | [address] | | | LABORATORY | | | | + + + + + Digoxin Level (07/09/2019 12:16 PM PDT) + + + + + + | Component | Value | Ref Range | Performed | Pathologist | | | | | At | Signature | + + + + + + | Date of | [address]45 | | REFERENCE | | | Last Dose | | | LAB | | | | | | [facility] | | | | | | LABORATORY | | + + + + + + | Time of | 2200 | | REFERENCE | | | Last Dose | | | LAB | | | | | | [facility] | | | | | | LABORATORY | | + + + + + + | Digoxin | 1.2Comment: Testing | 0.90 - 2.00 | REFERENCE | | | level | performed at [facility];[address] | ng/mL | LAB | | | | [place] | | [facility] | | | | [address];[place] [address] | | LABORATORY | | + + + + + + + + | Specimen | + + | Blood | + + + + + + + | Performing | Address | City/State/Zipcode | Phone Number | | Organization | | | | + + + + + | REFERENCE LAB | [address] [place] [address] | [place], [place] | [phone] | | [facility] | [address] | [address] | | | LABORATORY | | | | + + + + + | REFERENCE LAB | [address] [place] [address] | [place], [place] | | | [facility] | [address] | [address] | | | LABORATORY | | | | + + + + + ECG 12 lead (06/19/2019 1:45 PM PDT) + + + + + + | Component | Value | Ref Range | Performed | Pathologist | | | | | At | Signature | + + + + + + | VENTRICULAR | 64 | BPM | [facility] | | | RATE EKG | | | | | + + + + + + | ATRIAL RATE | 64 | BPM | [facility] | | + + + + + + | P-R | 224 | ms | [facility] | | | INTERVAL | | | | | + + + + + + | QRS | 108 | ms | [facility] | | | DURATION | | | | | + + + + + + | Q-T | 390 | ms | [facility] | | | INTERVAL | | | | | + + + + + + | Q-T | 402 | ms | [facility] | | | INTERVAL | | | | | | (CORRECTED) | | | | | + + + + + + | P WAVE AXIS | 36 | degrees | [facility] | | + + + + + + | QRS AXIS | 20 | degrees | [facility] | | + + + + + + | T AXIS | 60 | degrees | [facility] | | + + + + + + | INTERPRETAT | Please refer to | | [facility] | | | ION TEXT | Providers office visit | | | | | | note for Providers | | | | | | Interpretation.Confirmed | | | | | | by [facility] Read Only, | | | | | | [facility] ([id number]), | | | | | | department editor Tate Lozano | | | | | | ([id number]) on 06/19/2019 | | | | | | 1:52:02 PM | | | | + + + [...] + | Diagnosis | + + | SVT (supraventricular tachycardia) (HCC) - Primary Other specified cardiac | | dysrhythmias | + + | Coronary artery disease involving penobscot coronary artery of penobscot heart without | | angina pectoris | + + | Hx of CABG Postsurgical aortocoronary bypass status | + + | History of CVA in adulthood | + + | History of CVA (cerebrovascular accident) Transient ischemic attack (TIA), and | | cerebral infarction without residual deficits | + + | Facial droop Facial weakness | + + | Dyslipidemia Other and unspecified hyperlipidemia | + + | Bilateral carotid bruits | + + | Mixed hyperlipidemia | + + | Hypertension goal BP (blood pressure) < 140/80 Unspecified essential hypertension | + + | History of CEA (carotid endarterectomy) Other postprocedural status | + + | Peripheral arterial disease (HCC) Unspecified disorders of arteries and arterioles | + + | Asymmetric septal hypertrophy (HCC) Other hypertrophic cardiomyopathy | + + | Moderate mitral regurgitation by prior echocardiogram Mitral valve disorders | + + | Risk factors for obstructive sleep apnea | + + | Polycythemia vera (HCC) | + + | Hospital discharge follow-up Other follow-up examination | + + | Encounter for monitoring digoxin therapy Encounter for therapeutic drug monitoring | + + | Tachyarrhythmia Tachycardia, unspecified | + + | Abdominal aortic aneurysm (AAA) without rupture (HCC) | + + documented in this encounter
--- OUTSIDE RECORDS SUMMARY | ~2020-05-18 | XMS | Encounter Summary ---
Demographics + + + | Address | [address] | | | [place] [address] | + + + | Home Phone | | + + + | Preferred Language | Unknown | + + + | Marital Status | | + + + | Lutheran Affiliation | 1041 | + + + | Race | White | + + + | Ethnic Group | Not or | + + + Author + + + | Author | [facility] | | | and [place] | + + + | Organization | [facility] | | | and [place] | + + + | Address | Unknown | + + + | Phone | Unavailable | + + + Support + + + + + | Name | Relationship | Address | Phone | + + + + + | Tera Mccarthy | ECON | [place], [place] | | | | | [address] | | + + + + + | Alicia Mccarthy | ECON | [address] | | | | | [place] [address] | | + + + + + Care Team Providers + +------+ + | Care Medical Lab Director Name | Role | Phone | + +------+ + | Brittany Meehan MD | PCP | | + +------+ + Reason for Visit + +--------+ + | Reason | Onset | Comments | | | Date | | + +--------+ + | Neurology | 05/21/ | Emergency department referral/Stroke | | Appointment | 2019 | | + +--------+ + Encounter Details +--------+ + + + + | Date | Type | Department | Care Team | Description | +--------+ + + + + | 05/21/ | Telephone | [facility] | Hugh Balwinderpo, | Neurology | | 2019 | | NEUROLOGY [address] | MD Joslyn VANEGAS | Appointment | | | | [address] | [address] | (Emergency | | | | [place], [place] | [place] [address] | department | | | | [address] | [phone] | referral/Stroke) | | | | [phone] | | | +--------+ + + + [...] do you have serious | No | 05/19/2019 | | difficulty hearing? | | | + + + + | Are you blind or do you have serious | No | 05/19/2019 | | difficulty seeing, even when wearing | | | | glasses? | | | + + + + | Do you have serious difficulty walking or | No | 05/19/2019 | | climbing stairs? (5 years old or older) | | | + + + + | Do you have difficulty dressing or bathing? | No | 05/19/2019 | | (5 years old or older) | | | + + + + | Because of a physical, mental, or emotional | No | 05/19/2019 | | condition, do you have difficulty [...] physical, mental, or emotional | No | 05/19/2019 | | condition, do you have serious difficulty | | | | concentrating, remembering, or making | | | | decisions? (5 years old or older) | | | + + + + documented as of this encounter Miscellaneous Notes Telephone Encounter - Sasha Nolasco, Rubber Mixer - 05/25/2019 11:33 AM PDTPatient had been scheduled per Dr maldonado on the 25 of June but no one had called him to let him know. Patient was grateful for the apt and confirmed that the time will work just fine-A H elep julius Encounter - Dejan Lord - 05/22/2019 2:22 PM PDTSimon, is calling again for N eurology Appointment (Emergency department referral/Stroke) and would like a call back. Additional Call Details: Calling to schedule follow up appointment from Emergency Room for a Stroke elephone Encounter - Alex Jones - 05/21/2019 2:10 PM PDTSimon, is calling again because he has not receiv ed a call for Neurology Appointment (Emergency department referral/Stroke) and would like a call back. Additional Call Details: Calling to schedule appointment. Call back: [phone] elephone Encounter - Bebe Mckeon - 05/21/2019 9:21 AM PDTSimon, is calling regarding Neurology Appointment (E mergency department referral/Stroke) and would like a call back. Additional Call Details: Patient was seen in emergency department had a stroke, was told t o schedule appointment. If this is a symptom based call, was patient offered triage? Not Applicable If this is a symptom based call and you were unable to immediately transfer the call to a francisca neely auto mechanic supervisor was caller made aware that if at any time he feels it is an emergency they barbara uld call 911 or go to the nearest emergency room? not applicable documented in this encounter Plan of Treatment +--------+---------+ + + + | Date | Type | Specialty | Care Team | Description | +--------+---------+ + + + | 06/25/ | Office | Cardiology | Connie Alvarez | | | 2019 | Visit | | [address] | | | | | | [address] | | | | | | [place] [address] | | | | | | [phone] | | | | | | | | +--------+---------+ + + + documented as of this encounter Visit Diagnoses Not on filedocumented in this encounter"
--- OUTSIDE RECORDS SUMMARY | ~2020-05-18 | XMS | Encounter Summary ---
Demographics + + + | Address | [address] | | | [place] [address] | + + + | Home Phone | | + + + | Preferred Language | Unknown | + + + | Marital Status | | + + + | Gnosticism Affiliation | 1041 | + + + | Race | White | + + + | Ethnic Group | Not or | + + + Author + + + | Author | [facility] | | | and [place] | + + + | Organization | [facility] | | | and [place] | + + + | Address | Unknown | + + + | Phone | Unavailable | + + + Support + + + + + | Name | Relationship | Address | Phone | + + + + + | Tera Mccarthy | ECON | [place] | | | | | [address] | | + + + + + | Alicia Mccarthy | ECON | [address] | | | | | [place] [address] | | + + + + + Care Team Providers + +------+ + | Care Rn Mds Coordinator Name | Role | Phone | + +------+ + | Brittany Meehan MD | PCP | | + +------+ + Reason for Visit + + + | Reason | Comments | + + + | Follow-up | 4 month / [place] / US / STROKE | + + + Encounter Details +--------+---------+ + + + | Date | Type | Department | Care Team | Description | +--------+---------+ + + + | 05/23/ | Office | [facility] | Connie Alvarez | Coronary artery | | 2019 | Visit | [facility] [place] | [address] | disease involving | | | | [address] | [place] coronary | | | | [address] [place], [place] | [place] [address] | artery of [place] | | | | [address] | [phone] | heart without angina | | | | [phone] | | pectoris (Primary | | | | | | Dx); Hospital | | | | | | discharge follow-up; | | | | | | Acute CVA | | | | | | (cerebrovascular | | | | | | accident) (HCC); Hx | | | | | | of CABG; Mixed | | | | | | hyperlipidemia; | | | | | | Murmur, cardiac; | | | | | | Hypertension goal BP | | | | | | (blood pressure) < | | | | | | 140/80; Bilateral | | | | | | carotid artery | | | | | | disease, unspecified | | | | | | type (HCC); History | | | | | | of CEA (carotid | | | [...] | | | | vera ([facility]) | +--------+---------+ + + + Social History [...] + + + | Blood Pressure | 108/70 | 05/23/2019 2:37 PM | | | | | PDT | | + + + + + | Pulse | 77 | 05/23/2019 2:37 PM | | | | | PDT | | + + + + + | Temperature | - | - | | + + + + + | Respiratory Rate | - | - | | + + + + + | Oxygen Saturation | 97% | 05/23/2019 2:37 PM | | | | | PDT | | + + + + + | Inhaled Oxygen | - | - | | | Concentration | | | | + + + + + | Weight | 78 kg (172 lb) | 05/23/2019 2:37 PM | | | | | PDT | | + + + + + | Height | 175.3 cm (5' 9") | 05/23/2019 2:37 PM | | | | | PDT | | + + + + + | Body Mass Index | 25.4 | 05/23/2019 2:37 PM | | | | | PDT [...] Instructions Patient Instructions Connie Alvarez, MICHAEL - 05/23/2019 2:30 PM PDT I made changes to medications : Take metoprolol XL 25 mg every morning Decrease your losartan to 25 mg , so half a tablet and take at night starting tomorrow nigh t, so do not take tomorrow morning Stop fenofibrate and atorvastatin ( lipitor) for 2 weeks Then in 2 weeks On June 06 , start back on Atorvastatin 40 mg, so half a tablet Continue to take clopidogrel ( Plavix) 75 mg daily in the morning, See me back in 4 weeks I have ordered a fasting labs to be done in 3 weeks, one week before you see me Take your blood pressure in the morning before Metoprolol, and in the evening before losar xavier , and hold if top number is less than 115 mmhg Bring home blood pressure cuff to next appointment for me to Check No medication changes until seen back by me documented in this encounter Progress Notes Connie Alvarez FNP - 05/23/2019 2:30 PM PDTFormatting of this note might be differe nt from the original. Date of visit: 05/23/2019 Primary Care Physician: Brittany Meehan MD CHIEF COMPLAINT: Chief Complaint Patient presents with Follow-up 4 month / [place] / US / STROKE HISTORY OF PRESENT ILLNESS: Mr. Simon MccarthyEvelio, is a 79-year-old man who is here today to follow up on result s of his echo, carotid ultrasound, response to fenofibrate 145 mg, and metoprolol XL 25 mg. He was also hospitalized at [facility] on May 16 at [facility] for right MCA stroke. He is accompanied by his son Dougie today who contributed to history, and also drove him t o the appointment. He is a patient of Dr. Lim and last seen by him in July 2016, and has not followed u p with him since Dr. Lim stopped coming to [place], as difficult for him He has a [...] also recommended he be evaluated for sleep rn camp ea, but the patient had declined, as he did not think he could wear CPAP I had seen him last in January 2019, when I followed up with him about his response to Pravac hol, which he did not tolerate, and ordered him an echo , carotid ultrasound and requested that he complete the labs that I had previously ordered, and increased his fenofibrate to 14 5 mg, and increased his metoprolol XL to 25 mg His current and previous testing and procedures are detailed below. He was hospitalized from May 16 until May 19 [facility] with acute CVA. I reviewed hospital notes which document sudden onset of left facial droop associated with slurring speech symptoms that started at around 3 PM on May 15 while packing callus, and he denied having any weakness or sensory deficit to his extremities. He went home and had d inner, but noticed the next morning that he had some difficulty controlling his drinking as he was drooling on his left side with left-sided facial droop and slurring of speech he saw his physical therapist who noted similar symptoms, and advised to go to the emergency room. He was also noted to have a lingering bronchitis type infection for the past month with no fever or chills. His EKG was similar to one done in May 2018. 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 Reese who documented left facial weakness and slurred speech due to right MCA stroke most likely due to a artery to order reprocess or due to smal l vessel disease, the location and size were not suggestive of cardiac etiology. He also no shamika right vertebral artery occlusion, possibly due to dissection, and he was asymptomatic, a nd also noted left carotid artery saccular aneurysm which he was asymptomatic. He recommended aspirin 81 mg, and high intensity statin if able to tolerate for LDL 40-70, but patient statin intolerant. He also recommended following up with vascular surgery, and to avoid hypotension, and dehydration. He was also seen by vascular surgeon Dr. 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 He was discharged on atorvastatin 80 mg, though he is intolerant of statins, Plavix 75 mg fenofibrate 145 mg daily losartan 50 mg daily, metoprolol succinate 25 mg daily, and aspirin was discontinued, as well as ranitidine Today he reports that he is recovering from his stroke, but still has left-sided facial dr oop, and tongue also deviates to the left, but no other deficits, and his speech is no longe r slurred, and his memory seems intact. He does complain of increased ongoing fatigue, and he has been observant with Dr. Reese's instructions to only increase his activity by 25 %/w yuhaaviatam, and not to overdo it, and has been staying well-hydrated. He brought all of his medications to the clinic today, and reported he had not tolerated fe nofibrate, as he had noticed some increased to his myalgias, and had only been taking it katerin ry third day. He also reports that he has been taking atorvastatin since he has been home, and has noticed increased swelling to his thumb joints, which were noticeable today. He denies any dizziness or lightheadedness, but his blood pressure is on the low side today at 108/70. He reports he is only been taking metoprolol 12.5 mg daily, and not 25, and has been taking his losartan 50 mg at the same time. He denies any chest pain, palpitations, dizziness, or syncope. [facility] also [facility] or symptoms of [facility] or transient ischemic attack [facility] He had previously establish care establishing care with PCP in [place], Dr. Brittany nation, who he had also seen in urgent care for bronchiectasis, and had first clinic visit with [facility] in February. He has remained quite from chewing tobacco since 2008, has never smoked,rarely drinks alcoh ol and drinks 2 servings of coffee daily. He is , and his has been experiencing more health issues which has been a con cern for him. REVIEW OF SYSTEMS: Negative except for pertinent items noted in HPI. : Denies fatigue or unexplained weight loss. Appetite is good. Weight is stable. Denie s night sweats fevers or chills HENT: Denies [...] sleep apnea evaluation 07/2017, patient declined Cardiovascular: Denies chest pain, palpitations and leg swelling. Denies history of rheuma tic fever. Denies claudication . Gastrointestinal: history of gastroesophageal reflux disease, on PPI . Denies nausea, vo miting, abdominal pain and blood in stool. Genitourinary: Denies hematuria. history of benign prostatic hypertrophy Musculoskeletal:Hx arthralgia Fingers, shoulders, elbows , sciatica, [...] disease. Denies excessive thirst or hunger. Psychiatric/Behavioral: The patient denies any history of depression or anxiety or other ps ychiatric illness. Vaccines: Current on 06/2018 flu vaccine. Current [...] Prior to Visit Medication Sig Dispense Refill atorvaSTATin (LIPITOR) 80 MG tablet Take 1 tablet by mouth nightly. 30 tablet 0 Cholecalciferol (VITAMIN D3) 3000 units TABS Take by mouth. clopidogrel (PLAVIX) 75 mg tablet Take 1 tablet by mouth Daily. 30 tablet 0 fenofibrate (TRICOR) 145 mg tablet Take 1 tablet by mouth daily. fluticasone-salmeterol (ADVAIR, WIXELA INHUB) 250-50 mcg/puff diskus inhaler Inhale 1 p uff into the lungs 2 (two) times daily. losartan (COZAAR) 50 mg tablet Take 1 tablet by mouth Daily. 30 tablet 0 metoprolol succinate (TOPROL-XL) 25 mg 24 hr tablet Take 1 tablet by mouth Daily. 30 ta blet 0 No facility-administered medications prior to visit. PHYSICAL EXAM: Wt Readings from Last 3 Encounters: 05/23/19 78 kg (172 lb) 05/19/19 78.2 kg (172 lb 6.4 oz) 07/27/13 80.7 kg (178 lb) Temp Readings from Last 3 Encounters: 05/19/19 36.8 C (98.2 F) (Oral) 04/03/13 36.7 C (98 F) (Tympanic) BP Readings from Last 3 Encounters: 05/23/19 108/70 05/19/19 142/88 07/27/13 (!) 152/94 Pulse Readings from Last 3 Encounters: 05/23/19 77 05/19/19 67 07/27/13 61 GENERAL: Well developed, well nourished, in no [...] tests: Lab Results Component Value Date WBC 4.26 05/17/2019 RBC 4.70 05/17/2019 HGB 13.2 05/17/2019 HCT 40.6 05/17/2019 PLT 192 05/17/2019 Lab Results Component Value Date NA 144 05/17/2019 K 4.1 05/17/2019 CL 110 (H) 05/17/2019 CO2 25 05/17/2019 ANIONGAP 13 05/17/2019 BUN 15 05/17/2019 EGFR >60 05/17/2019 Lab Results Component Value Date CHOL 196 05/16/2019 TRIG 104 05/16/2019 LDL 124 (H) 05/16/2019 No results found for: BNP, TSH, CRP No results found for: TOTEPI CARDIAC PROCEDURES/IMAGING [...] leg V CU ECHO Last echo: 05/17/2019 ([facility]): EF 75%. LV normal in size [...] Mild TR. No pu lmonary hypertension. Mild PA. No pericardial effusion. IVC not well visualized. No mass , no clot VASCULAR PROCEDURES/ IMAGING Ct Angiogram Head Neck Acute Stroke:05/16/2019:[facility] w/ stroke: 1. The right vertebral [...] 3. No acute intracranial findings Brain MRI:05/17/2019: [facility] w/ stroke: Abnormal diffusion restriction is seen in the right centrum semiovale compatible with an area of acute infarction. CEA: 02/2010: Right and left carotid artery endarterectomy Last carotid ultrasound: 04/26/2019:( [facility]) Atheromatous changes in the carotid arteries maik [...] elevation to anterior leads. Rate 67 bpm, PA 226 ms, QRS 108 ms, QTC 388 ms EK: Normal sinus rhythm, incomplete bundle branch block, prior septal infarct . First-degree A-V block. Rate 80 bpm, PA 206 ms, QRS 106 ms, QTC 420 ms (personally revie wed by me in the office today and when compared to EKG done in 2013 PA interval has decrease d ) EK05/31/2018: Sinus rhythm with first-degree AV block, incomplete right bundle branch bloc k. Old septal infarct Rate 60 bpm, PA 230 ms, QRS 108 ms, QTC 390 ms him a tracing persona lly reviewed by me, similar morphology to July 2017 EKG, except for increased first-degr ee block EK05/16/2019: Sinus rhythm with first-degree AV block, incomplete right bundle branch blo ck, LVH, old septal infarct w/ low voltage QRS leads II aVF. Rate 61 bpm, PA 226 ms, QRS 11 0 ms, QTC 410 ms, tracing personally reviewed by me EK05/23/2019: Sinus rhythm with first-degree AV block, stable incomplete right bundle bra nch block, LVH, old septal infarct. Rate 70 bpm, PA 230 ms, QRS 140 ms, QTC 410 ms, tracing personally reviewed by me, and similar morphology to previous EKG performed in April 2019, in May 2018 LABS: Labs: 03/14: Lipids: Cholesterol 195, triglycerides [...] A1c 5.6 (114) magnesium 2. Phosphorus 2.6 ASSESSMENT & PLAN: He was here today to follow-up on the results of his echo and carotid ultrasound, as well as his recent hospitalization for stroke as discussed in HPI. He has problems as detailed below. 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 He had an echo performed on April 26 at [facility], and a repeat echo performed during h is hospitalization on May 17. Both documents normal EF of 65-70%, mild to moderate LVH, no regional wall motion abnormalities, but the echo performed in the hospital does document mild aortic stenosis which was not noted on his echo performed at [facility], both noted a mildly dilated ascending aorta, with no pulmonary hypertension. His EKG performed in the clinic today shows sinus rhythm at 70 bpm with first-degree AV blo ck, with similar morphology to EKG performed in the hospital, as well as last year. I reviewed the tests results in detail with him and his son. I discussed with him that his blood pressure should be higher as recommended by neurology. I have encouraged him to take metoprolol XL 25 mg every morning, to decrease his losartan to 25 mg and take at night starting tomorrow night, and to continue to take his Plavix 75 m g daily. He is statin intolerant, and was not tolerating fenofibrate even before his stroke, and has developed considerable swelling and pain to his thumbs and hands since he has been back on a statin. I have instructed him to stop fenofibrate and atorvastatin for 2 weeks, then in 2 weeks to start back on atorvastatin 40 mg, and document if there is any change in his symptoms being on or off atorvastatin. I will also order a repeat CMP and lipid panel to be performed in 3 weeks, and I will fo llow-up with him in 4 weeks. He has been unable to make an appointment to see the neurologist Dr. Reese, though he has called his office twice last week, as he was instructed to follow-up with him in 4 weeks. I sent an [employer] message to him, and he responded that he will get his office to contact [facility] directly for a follow-up visit. I have instructed him to take his blood pressure in the morning before his metoprolol, and again in the evening before his losartan and to hold if systolic blood pressure less than 15 0 mmHg, and he is to bring a log of his home heart rate and blood pressures to the clinic wh en I see him back. He will follow-up with his PCP in [place], but I have told him not to make any medication changes without consulting with me. 1. Coronary artery disease involving [place] coronary artery of [place] heart without angina pectoris 2. Hospital discharge follow-up 3. Acute CVA (cerebrovascular accident) (HCC) 4. Hx of CABG 5. Mixed hyperlipidemia 6. Murmur, cardiac 7. Hypertension goal BP (blood pressure) < 140/80 8. Bilateral carotid artery disease, unspecified type (HCC) 9. History of CEA (carotid endarterectomy) 10. Peripheral arterial disease (HCC) 11. Asymmetric septal hypertrophy (HCC) 12. Moderate mitral regurgitation by prior echocardiogram 13. Risk factors for obstructive sleep apnea 14. Polycythemia vera (HCC) Orders Placed This Encounter Procedures ECG 12 lead The following portions of the patient's history [...] history, past surgical history. [facility] Opal ford in this encounter Plan of Treatment +--------+---------+ + + + | Date | Type | Specialty | Care Team | Description | +--------+---------+ + + + | 06/25/ | Office | Cardiology | Conine Alvarez | | | 2019 | Visit | | [address] | | | | | | [address] | | | | | | [place] [address] | | | | | | [phone] | | | | | | | | +--------+---------+ + + + + +------+--------+ + + | Name | Type | Priori | Associated Diagnoses | Order Schedule | | | | ty | | | + +------+--------+ + + | Comprehensive | Lab | Routin | Hospital discharge | Expected: | | Metabolic Panel | | e | follow-up Mixed | 06/06/2019, Expires: | | | | | hyperlipidemia | 05/23/2020 | | | | | Hypertension goal BP | | | | | | (blood pressure) < | | | | | | 140/80 | | + +------+--------+ + + | Lipid Panel | Lab | Routin | Hospital discharge | Expected: | | | | e | follow-up Mixed | 06/06/2019, Expires: | | | | | hyperlipidemia | 05/23/2020 | + +------+--------+ + + | Creatine Kinase, | Lab | Routin | Hospital discharge | Expected: | | Isoenzymes | | e | follow-up Mixed | 06/06/2019, Expires: | | | | | hyperlipidemia | 05/23/2020 | + +------+--------+ + + documented as of this encounter Procedures + +--------+ + + + | Procedure Name | Priori | Date/Time | Associated Diagnosis | Comments | | | ty | | | | + +--------+ + + + | ECG 12 LEAD | Routin | 05/23/2019 | Hospital discharge | Results for this | | | e | 2:42 PM | follow-up Coronary | procedure are in the | | | | PDT | artery disease | results section. | | | | | involving [place] | | | | | | coronary artery of | | | | | | [place] heart without | | | | | | angina pectoris | | | | | | Acute CVA | | | | | | (cerebrovascular | | | | | | accident) (HCC) | | + +--------+ + + + documented in this encounter Results ECG 12 lead (05/23/2019 2:42 PM PDT) + + + + + + | Component | Value | Ref Range | Performed | Pathologist | | | | | At | Signature | + + + + + + | VENTRICULAR | 70 | BPM | [facility] | | | RATE EKG | | | | | + + + + + + | ATRIAL RATE | 70 | BPM | [facility] | | + + + + + + | P-R | 230 | ms | [facility] | | | INTERVAL | | | | | + + + + + + | QRS | 104 | ms | [facility] | | | DURATION | | | | | + + + + + + | Q-T | 380 | ms | [facility] | | | INTERVAL | | | | | + + + + + + | Q-T | 410 | ms | [facility] | | | INTERVAL | | | | | | (CORRECTED) | | | | | + + + + + + | P WAVE AXIS | 23 | degrees | [facility] | | + + + + + + | QRS AXIS | 3 | degrees | [facility] | | + + + + + + | T AXIS | 8 | degrees | [facility] | | + + + + + + | INTERPRETAT | Please refer to | | [facility] | | | ION TEXT | Providers office visit | | | | | | note for Providers | | | | | | Interpretation.Confirmed | | | | | | by [facility] Read [facility], | | | | | | [facility] ([id number]), | | | | | | editorial cartoonist Tate Lozano | | | | | | ([id number]) on 05/23/2019 | | | | | | 5:21:36 PM | | | | + + [...] + | Diagnosis | + + | Coronary artery disease involving [place] coronary artery of [place] heart without | | angina pectoris - Primary | + + | Hospital discharge follow-up Other follow-up examination | + + | Acute CVA (cerebrovascular accident) (HCC) | + + | Hx of CABG Postsurgical aortocoronary bypass status | + + | Mixed hyperlipidemia | + + | Murmur, cardiac Undiagnosed cardiac murmurs | + + | Hypertension goal BP (blood pressure) < 140/80 Unspecified essential hypertension | + + | Bilateral carotid artery disease, unspecified type (HCC) | + + | History of CEA [...]
--- OUTSIDE RECORDS SUMMARY | ~2020-05-18 | XMS | Encounter Summary ---
Demographics + + + | Address | [address] | | | [place] [address] | + + + | Home Phone | | + + + | Preferred Language | Unknown | + + + | Marital Status | | + + + | Mosque Affiliation | 1041 | + + + | Race | White | + + + | Ethnic Group | Not or | + + + Author + + + | Author | [facility] | | | and [place] | + + + | Organization | [facility] | | | and [place] | + + + | Address | Unknown | + + + | Phone | Unavailable | + + + Support + + + + + | Name | Relationship | Address | Phone | + + + + + | Tera Mccarthy | ECON | [place] | | | | | [address] | | + + + + + | Alicia Mccarthy | ECON | [address] | | | | | [place] [address] | | + + + + + Care Team Providers + +------+ + | Care Jewel Blocker And Sawyer Name | Role | Phone | + [...] | Cough | MD Lio | [address] | | | | | Procedures | [address] | [place], | | | | | [address] Chest wo | [place] | [place] [address] | | | | | Contrast | [place], | Phone: | | | | | | [place] [address] | [phone] | | | | | | Phone: | Fax: | | | | | | [phone] | [phone] | | | | | | Fax: | | | | | | | [phone] | | +--------+--------+ + + + + Encounter Details +--------+ + + + + | Date | Type | Department | Care Team | Description | +--------+ + + + + | 07/13/ | Hospital | [facility] | Lio Mendez, | Cough | | 2012 | Encounter | MED CTR XRAY [address] | MD [address] | | | | | [place] | [place], [place] | | | | | [place] [address] | [address] | | | | | [phone] | | | +--------+ + + + [...] [address] | | | | | | [address] | | | | | | [place] [address] | | | | | | [phone] | | | | | | | [...] Performed At | + + + | [facility] | [facility] | | Department [address] [facility], [address] [place] | [facility] | | [ rep [address]] [ rep [facility] | | st zip] Signed | - IMAGING | | | | | Patient Name: SIMON MCCARTHY Physician: | | | ALBERTO. : 1940 Age: 73 Sex: M Unit #: [id number] | | | Exam Date: 07/13/13 Location: [facility] | | | Report #: [id number] Page: | | | %(RAD)RES..mtdd.print.filter("pg") of %(RAD) | | | RES..mtdd.print.filter("tpg") | | | | | | Accession Number: [id number] | | | CT CHEST WITHOUT CONTRAST, [...] Transcribed Date/Time: | | | 07/13/2013 16:26 Hospitality Specialist: | | | <<Signature on File>> | | | Michael | | | MD Leoncio07/13/13 1636 <Electronically signed by Michael Fang MD> | | | Michael Fang MD 07/13/13 2400 Hospitality Specialist: [place] | | | Gxerfbtkrzyai80/18/13 1626 Lio Mendez MD | | | | | + + + + + + + + | Performing | Address | City[facility] | Phone Number | | Organization | | | | + + + + + | [facility] | [address] | [place], [place] | [phone] | | [facility] | | [address] | | | - IMAGING | | | | + + + + + CT Sinus WO Contrast Limited (07/13/2013 3:15 PM PDT) + + | Specimen | + + | | + + + + + | Narrative | Performed At | + + + | [facility] | [facility] | | Department [address] , [place] | [facility] | | [ rep [address]] [ rep ct [facility] | | st zip] Signed | - IMAGING | | | | | Patient Name: SIMON MCCARTHY Physician: | | | [birth year] : 1940 Age: 73 Sex: M Unit #: [id number] | | | Exam Date: 07/13/13 Location: [facility] | | | Report #: [id number] Page: | | | %(RAD)RES..mtdd.print.filter("pg") of %(RAD) | | | RES..mtdd.print.filter("tpg") | | | | | | Accession Number: [id number] | | | CT SINUSES, 07/13/2013 CLINICAL [...] | | | Transcribed Date/Time: 07/13/2013 16:08 Hospitality Specialist: | | | <<Signature on File>> | | | Michael | | | MD Leoncio07/13/13 1636 <Electronically signed by Michael Fang MD> | | | Michael Fang MD 07/13/13 4615 Hospitality Specialist: [place] | | | Znpakgrsufyss41/18/13 1608 Matias Muñoz MD | | + + + + + + + + | Performing | Address | City/State/Zipcode | Phone Number | | Organization | | | | + + + + + | [facility] | [address] | [place] | [phone] | | [facility] | | [address] | | | - IMAGING | | | | + + + + + documented in this encounter Visit Diagnoses + + | Diagnosis | + + | Cough | + + documented in this encounter
--- OUTSIDE RECORDS SUMMARY | ~2020-05-18 | XMS | Encounter Summary ---
Demographics + + + | Address | [address] | | | [place] [address] | + + + | Home Phone | | + + + | Preferred Language | Unknown | + + + | Marital Status | | + + + | Protestant Affiliation | 1041 | + + + | Race | White | + + + | Ethnic Group | Not or | + + + Author + + + | Author | [facility] | | | and [place] | + + + | Organization | [facility] | | | and [place] | + + + | Address | Unknown | + + + | Phone | Unavailable | + + + Support + + + + + | Name | Relationship | Address | Phone | + + + + + | Tera Mccarthy | ECON | [place], [place] | | | | | [address] | | + + + + + | Alicia Mccarthy | ECON | [address] | | | | | [place] [address] | | + + + + + Care Team Providers + +------+ + | Care Cream Ripener Name | Role | Phone | + +------+ + | Brittany Meehna MD | PCP | | + +------+ [...] + + | 05/09/ | Telephone | [facility] | Socorro Toeny | Other (Pt wanted to | | 2019 | | CARDIOLOGY ANNA Oviedo, Bar Supervisor | discuss medications | | | | [address] | | ) | | | | [place] | | | | | | [address] | | | | | | [phone] | | | +--------+ + + + [...] Miscellaneous Notes Telephone Encounter - Socorro Toney, Bar Supervisor - 05/09/2020 10:[address] [...] Thank you! (message sent to Connie Varela) JDW:SYSTEMS TECHNOLOGIST-AAMA. [facility] umented in this encounter Plan [...] | | | | | [place] [address] | | | | | | [phone] | | | | | | | | +--------+---------+ + + + documented as of this encounter Visit Diagnoses Not on filedocumented in this encounter"
--- OUTSIDE RECORDS SUMMARY | ~2020-05-18 | XMS | Encounter Summary ---
Demographics + + + | Address | [address] | | | [place] [address] | + + + | Home Phone | | + + + | Preferred Language | Unknown | + + + | Marital Status | | + + + | Buddhism Affiliation | 1041 | + + + | Race | White | + + + | Ethnic Group | Not or | + + + Author + + + | Author | [facility] | | | and [place] | + + + | Organization | [facility] | | | and [place] | + + + | Address | Unknown | + + + | Phone | Unavailable | + + + Support + + + + + | Name | Relationship | Address | Phone | + + + + + | Tera Mccarthy | ECON | [place] | | | | | [phone] | | + + + + + | Alicia Mccarthy | ECON | [address] | | | | | [place] [address] | | + + + + + Care Team Providers + +------+ + | Care Hob Grinder Name | Role | Phone | + +------+ + | Matias Muñoz MD | PCP | | + +------+ + Reason for Visit + + + | Reason | Comments | + + + | Slurred Speech | started yesterday afternoon | + + + | Facial Droop | | + + + Auth/Cert +--------+--------+ + + + + | Status | Reason | Specialty | Diagnoses / | Referred By | Referred To | | | | | Procedures | Contact | Contact | +--------+--------+ + + + + | | | | Diagnoses | | | | | | | 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 | | | | | | | ([facility]) | | | | | | | Facial droop | | | | | | | 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, | | | | | | | left ([facility]) | | | | | | | Cerebrovascu | | | | | | | lar accident | | | | | | | (CVA), | | | | | | | unspecified | | | | | | | mechanism | | | | | | | ([facility]) | | | | | | | | | | +--------+--------+ + + + + Encounter Details +--------+ + + + + | Date | Type | Department | Care Team | Description | +--------+ + + + + | 05/16/ | Hospital | [facility] | Colin Dumont MD | Cerebrovascular | | 2019 - | Encounter | [facility] | [address] | accident (CVA), | | | | CARE FLOOR [address] | [place], [place] | unspecified | | 05/19/ | | [address] | [address] | mechanism (HCC) | | 2019 | | [place], [place] | [phone] | (Primary Dx); Facial | | | | [phone] | | droop; Vertebral | | | | [phone] | Robb Echols MD | artery dissection | | | | | [address] | (HCC); Carotid | | | | | [place] [address] | aneurysm, left (HCC) | | | | | [phone] | | | | | | | | | | | | Daron Draper MD [address] | | | | [address] | | | | | | [place] [address] | | | | | | [phone] | | | | | | | | +--------+ + + + [...] + + + | Blood Pressure | 142/88 | 05/19/2019 11:47 AM | | | | | PDT | | + + + + + | Pulse | 67 | 05/19/2019 11:47 AM | | | | | PDT | | + + + + + | Temperature | 36.8 C (98.2 F) | 05/19/2019 11:47 AM | | | | | PDT | | + + + + + | Respiratory Rate | 20 | 05/19/2019 11:47 AM | | | | | PDT | | + + + + + | Oxygen Saturation | 95% | 05/19/2019 11:47 AM | | | | | PDT | | + + + + + | Inhaled Oxygen | - | - | | | Concentration | | | | + + + + + | Weight | 78.2 kg (172 lb 6.4 | 05/19/2019 3:24 AM | | | | oz) | PDT | | + + + + + | Height | 175.3 cm (5' 9") | 05/16/2019 6:27 PM | | | | | PDT | | + + + + + | Body Mass Index | 25.46 | 05/16/2019 6:27 PM | | | | | PDT [...] documented as of this encounter Discharge Summaries Daron Draper MD - 05/19/2019 8:03 AM PDTFormatting of this note might be different from nicole aaron. [facility]: Hospitalist Discharge Summary Date of Admission: 05/16/2019 Date of Discharge: 05/19/2019 Discharge Physician: Daron Draper MD Treatment Team: Mauricio Centeno MD; Sammie Reese MD Discharge Diagnoses: Principal Problem: Acute CVA (cerebrovascular accident) Active Problems: Benign essential hypertension Coronary artery disease involving [place] coronary artery of [place] heart Chronic cough History of CEA (carotid endarterectomy) Hx of CABG Facial droop Resolved Problems: * No resolved hospital problems. * . Procedures: * No surgery found * Significant Diagnostic Studies: Recent Results (from the past 360 hour(s)) CT Angiogram Head Neck Acute Stroke Narrative CT ANGIOGRAM OF THE HEAD WITHOUT AND WITH CONTRAST; CT ANGIOGRAM OF THE NECK WITH CONTRAST CLINICAL INFORMATION: Left-sided facial droop, slurred speech COMPARISON: SINUS LIMITED WO CONTRAST (07/13/2013); PROCEDURE: CT Head: Axial images were obtained through the brain IV without contrast. CT Angiogram Head: Thin section axial images were obtained through the brain during the arterial phase after IV administration. CT Angiogram Neck: Thin section axial images were obtained through the neck during the arterial phase after IV administration. NASCET criteria applied for internal carotid stenosis determination. 3D and multiplanar reconstructions were obtained from the acquisition data. Contrast: 100mL Omnipaque 350 IV. At least one of the following CT dose optimization techniques were used: Automated exposure control; Adjustment of mA and/or kV according to patient size; Use of iterative reconstruction technique. FINDINGS: CT Head: Brain: No intracranial hemorrhage, midline shift or pathologic mass effect. No cerebral edema, mass lesion, or evidence of acute infarct. ASPECTS score is 10. No areas of abnormal enhancement are seen within the brain parenchyma, leptomeninges or dura. Ventricles and extra-axial fluid spaces: Normal. Paranasal sinuses and mastoid air cells: The paranasal sinuses demonstrate prior endoscopic sinus surgery with bilateral maxillary antrectomies, resections of the middle nasal turbinates, superior nasal turbinates and ethmoid air cells. The mastoid air cells are normally aerated. Calvarium and extracranial soft tissues: Normal. Orbits: The orbits and their contents demonstrate prior bilateral cataract surgery but are otherwise normal. CTA Head: Intracranial Segments of the Internal Carotid Arteries: Normal contrast enhancement without evidence of occlusion, intraluminal thrombus, significant stenosis, or aneurysm. Middle Cerebral Arteries: Normal contrast enhancement without evidence of occlusion, intraluminal thrombus, significant stenosis, or aneurysm. Anterior Cerebral Arteries: Normal contrast enhancement without evidence of occlusion, intraluminal thrombus, significant stenosis, or aneurysm. The anterior communicating artery is patent. Posterior Circulation: The right vertebral artery appears to be occluded at the C1 level as it enters the foramen magnum but then reconstitutes via retrograde flow from the basilar artery to supply the posterior inferior cerebellar artery. 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 The left vertebral artery remains widely patent and is the primary supply to the basilar artery. The basilar artery is normal in course and caliber. The basilar artery supplies the anterior inferior cerebellar arteries, superior cerebellar arteries and posterior cerebral arteries a prominent right posterior communicating artery is noted. The left posterior communicating artery is not seen and may be congenitally absent. CTA Neck: Aortic Arch: Conventional anatomy. Brachiocephalic and subclavian arteries demonstrate normal contrast enhancement without evidence of occlusion, intraluminal thrombus, or significant stenosis. Right Carotid Artery: Prior right carotid endarterectomy noted. Carotid bulb and internal carotid artery are widely patent. Mid cervical right ICA normal lumen measures 3.8 mm, image 110 series 8, 0% NASCET stenosis. The intracranial segment of the distal internal carotid artery is patent. Left Carotid Artery: Prior left carotid endarterectomy noted. Soft plaque creates 50% narrowing in the distal common carotid artery, see image 165 series 8. 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 There is no thrombus within this aneurysm. The left internal carotid artery is otherwise widely patent. The mid cervical left ICA normal lumen measures 3.8 mm, image 110 series 8, 0% NASCET stenosis. The intracranial portion of the left internal carotid artery is patent. Vertebral Arteries: The left vertebral artery is widely patent and is dominant. The right vertebral artery is extremely narrow in caliber throughout its entire course despite a relatively normal size of the foramen transversarium. 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 The artery appears to occlude at the C1 level prior to entering the foramen magnum. IMPRESSION: 1. The right vertebral artery is extremely narrow in caliber throughout its entire course despite a relatively normal size of the foramen transversarium. 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 The artery appears to occlude at the C1 level prior to entering the foramen magnum. It reconstitutes via retrograde flow from the basilar artery to supply the right posterior inferior cerebellar artery. 2. Bilateral carotid endarterectomy is noted. 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 3. No acute intracranial findings. 4. Aspects score is 10. Signed by: Jay Jay Tan Edward Sign Date/Time: 05/16/2019 2:54 PM MRI Brain wo Contrast Narrative MRI BRAIN WITHOUT CONTRAST CLINICAL INFORMATION: Slurred speech, facial drop COMPARISON: No comparison. PROCEDURE: Sagittal T1, axial FLAIR, axial T2, axial T1, axial gradient susceptibility, coronal T2, axial DWI. FINDINGS: Brain: Abnormal restricted diffusion is seen within the right anterior melissa radiata compatible with an area of acute infarction. This region measures approximately 15 mm in diameter. No evidence of hemorrhage or mass effect is seen. Patchy white matter changes are present throughout. The basal ganglia and thalami are symmetric. The brainstem and cerebellum are unremarkable. Ventricles and extra-axial fluid spaces: No abnormal extra-axial fluid collections. Sella, suprasellar cistern, and orbits: Bilateral cataract surgery. Major vascular flow voids: Normal. Calvarium and extracranial soft tissues: Normal. Paranasal sinuses and mastoid air cells: Bilateral ethmoidectomies. IMPRESSION: Abnormal diffusion restriction is seen in the right centrum semiovale compatible with an area of acute infarction. Signed by: Lakshmi Nicolas Richard Sign Date/Time: 05/16/2019 6:23 PM Results for orders placed during the hospital encounter of 05/16/19 [place] Complete Narrative There is moderate increased left ventricular wall thickness. The left ventricular ejection fraction is 75%. Aortic valve area by continuity equation is 1.87 cm2. Ascending aorta is 4.37 cm. Results for orders placed or performed during the hospital encounter of 05/16/19 ECG 12 lead Result Value Ref Range INTERPRETATION TEXT Sinus rhythm with 1st degree A-V block Incomplete right bundle branch block Moderate voltage criteria for LVH, may be normal variant Borderline ECG When compared with ECG of 31-MAY-2018 09:48, Previous ECG has undetermined rhythm, needs review This ECG contains Unconfirmed Interpretation Statements. See ED Record for Physician Inter pretation. Confirmed by MUSE READ ONLY, -COMPUTER ([id number]), graphic editor Chente Babb ([id number]) on 9 4:00:38 AM BRIEF HISTORY OF PRESENTATION: Simon Mccarthy is a 79 y.o. male who presented per H&P"significant past medical hist ory as outlined below under the past medical history section with history of coronary artery disease a status post 6 vessel bypass in 2008 and bilateral tolerated endarterectomy all do ne by Dr. Carlin, asthma, hyperlipidemia intolerant to statins, history of hypertension, po lycythemia treated with periodic phlebotomy who presented with sudden onset of left facial d rebecca associated with slurring of speech. He is a non-smoker and denies any premature cardio vascular disease in his family. 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 The patient denied having any weakness or sensory deficit and his extremities. He we nt home and had dinner later on without any choking episodes. This morning, the patient not iced that he had some difficulty controlling his drink as if he is drooling on the left side . He continues to have left-sided droop and mild slurring of speech. He usually goes to [facility] for his left wrist and at around 10:30 AM today, he was noticed by his therap ist to have the symptoms. Blood pressure was checked and noted to be 179 systolic. Subsequ ently, the patient was advised ER visit. Patient also notes having lingering bronchitis typ e infection for the past month but no fevers or chills. In the emergency room, he remained hemodynamically stable. His initial laboratories are un remarkable. His EKG showed ST elevation in V1 and V2 but no reciprocal tracing. This is si milar to an EKG done in 05/2018. CT angiogram of the head and neck was negative for acute in tracranial findings however there is a right vertebral artery possible extensive dissection and appears occluded at the C1 level prior to entering the foramen magnum. 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 Subsequently, the patient was started on asp irin and admitted under the hospitalist service for further evaluation and management' HOSPITAL COURSE: He was seen by neurology he will continue plavix and statin also BP control he pillo l follow up with PCP Patient was discharged in stable condition. Addressed all of their questions and covered wi th side affects of newly added medications. he was cleared per consulting services. 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 Hyperlipidemia Hyperlipidemia Hypertension Myalgia s/p lovastatin + meningitis Nasal and sinus discharge Occlusion of carotid artery PAD (peripheral artery disease) ([facility]) Polycythemia vera ([facility]) 2016 Renal stone Sciatica Sinusitis Chronic Trigeminy Ventricular pre-excitation Past Surgical History: Procedure Laterality Date COLONOSCOPY CORONARY ARTERY BYPASS GRAFT 2008 6 vessel/ RLE veing harvest CORONARY ARTERY BYPASS GRAFT EYE SURGERY L and R CEA 2009 NASAL SEPTUM SURGERY OTHER SURGICAL HISTORY CATARACT EXTRACTION TONSILLECTOMY AND ADENOIDECTOMY Allergies Allergen Reactions Penicillins Rash Statins Other (See Comments) Cramping in the legs, muscle weakness Pravastatin Other (See Comments) No medications prior to admission. DISCHARGE EXAM Vital Signs: BP 142/88 | Pulse 67 | Temp 36.8 C (98.2 F) (Oral) | Resp 20 | Ht 1.753 m (5' 9") | Wt 78.2 kg (172 lb 6.4 oz) | SpO2 95% | BMI 25.46 kg/m General appearance: alert, appears stated age, cooperative and no distress Head: Normocephalic, without obvious abnormality, atraumatic Neck: no adenopathy, no carotid bruit, no JVD, supple, symmetrical, trachea midline and thy roid not enlarged, symmetric, no tenderness/mass/nodules Lungs: clear to auscultation bilaterally Heart: regular rate and rhythm, S1, S2 normal, no murmur, click, rub or gallop Abdomen: soft, non-tender; bowel sounds normal; no masses, no organomegaly Extremities: extremities normal, atraumatic, no cyanosis or edema Pulses: 2+ and symmetric Neurologic: AXO3, facial droop,intact upper and lower motor DATA Recent Labs 05/17/19 0425 05/16/19 1250 WBC 4.26 6.50 HGB 13.2 14.9 HCT 40.6 45.8 PLT 192 222 Recent Labs 05/17/19 0425 05/16/19 1250 NA 144 142 K 4.1 4.2 CL 110* 110* CO2 25 27 BUN 15 15 CREA 1.1 1.14 CALCIUM 8.9 9.0 PHOS 2.6 -- ALBUMIN -- 4.5 No results for input(s): TROPONIN, BNP in the last 72 hours. No results for input(s): PROCALCITONI in the last 72 hours. Microbiology Results (72 hrs) No results found for the last 72 hours. Disposition: home Condition: Stable Code Status: Full Code No discharge procedures on file. Follow up: Matias Muñoz MD [address] [address] Schedule an appointment as soon as possible for a visit in 2 weeks Sammie Reese MD [address] [facility] [address] Schedule an appointment as soon as possible for a visit in 4 weeks Discharge Medications New Medications Details atorvaSTATin 80 MG tablet Take 1 tablet by mouth nightly. aka: LIPITOR clopidogrel 75 mg tablet Take 1 tablet by mouth Daily. aka: PLAVIX Unchanged Medications Details fenofibrate 145 mg tablet Take 1 tablet by mouth daily. aka: TRICOR fluticasone-salmeterol 250-50 mcg/puff diskus inhaler Inhale 1 puff into the lungs 2 (two) times daily. aka: SAMSON GENAO INHUB losartan 50 mg tablet Take 1 tablet by mouth Daily. aka: YASMIN metoprolol succinate 25 mg 24 hr tablet Take 1 tablet by mouth Daily. aka: TOPROL-XL Start: 05/20/2019 Discontinued Medications albuterol 90 mcg/puff inhaler aspirin 81 MG EC tablet RANITIDINE 150 MAX STRENGTH 150 mg tablet Generic drug: raNITIdine Discharge took over 30 minutes, to include final examination, discussion of admission, and preparation of prescriptions, instructions for on-going care, follow-up and documentation o f discharge summary. Daron Draper MD 05/19/2019 documented in th is encounter Discharge Instructions AttachmentsThe following attachments cannot be sent through Care Everywhere.High Blood Pres sure (Hypertension), Discharge Instructions ([place])Stroke and High Blood Pressure, Underst anding the Link Between ([place])Atorvastatin tablets ([place])Clopidogrel tablets ([place]) documented in this encounter Medications at Time [...] + + + +---------+ + + | atorvaSTATin | Take 1 tablet by | 30 | 0 | 05/18/20 | | | (LIPITOR) 80 MG | mouth nightly. | tablet | | 19 | 9 [...] + + + +---------+ + + | fenofibrate | Take 1 tablet by | | 0 | 02/01/20 | | | (TRICOR) 145 mg | mouth every 3rd day | | | 19 | 9 | | tablet | | | | | | + + + +---------+ + + | losartan (COZAAR) | Take 1 tablet by | 30 | 0 | 05/19/20 | | | 50 mg tablet | [...] documented as of this encounter Progress Notes Daron Draper MD - 05/18/2019 12:17 PM PDTFormatting of this note might be different from th e original. [facility]:hospitalist Progress Note Hospital Day: LOS: 2 days SUBJECTIVE Patient Summary: refer to H&P and consult note for details Events Overnight: Patient seen and examined, denies CP or SOB no abdominal pain,no ne w focal Neurologic deficits,elevated BP,facaial droop noted,does not feel comfortable milena reddy today , Addressed all questions Scheduled Medications atorvaSTATin 80 mg Oral Nightly budesonide-formoterol 2 puff Inhalation RT BID clopidogrel 75 mg Oral Daily enoxaparin 40 mg Subcutaneous Q24H losartan 50 mg Oral Daily metoprolol succinate 25 mg Oral Daily pantoprazole 40 mg Oral QAM AC Continuous Infusions PRN Medications acetaminophen OR acetaminophen OR acetaminophen, albuterol, benzonatate, docusate s odium, labetalol, ondansetron, ondansetron, polyethylene glycol, senna OBJECTIVE Vital Signs: BP 158/84 | Pulse 75 | Temp 36.7 C (98.1 F) (Oral) | Resp 20 | Ht 1.753 m (5' 9") | Wt 79.2 kg (174 lb 9.7 oz) | SpO2 95% | BMI 25.78 kg/m Intake/Output Summary (Last 24 hours) at 05/18/2019 1220 Last data filed at 05/18/2019 0428 Gross per 24 hour Intake 600 ml Output 1600 ml Net -1000 ml General appearance: alert, appears stated age, cooperative and no distress Head: Normocephalic, without obvious abnormality, atraumatic Neck: no adenopathy, no carotid bruit, no JVD, supple, symmetrical, trachea midline and thy roid not enlarged, symmetric, no tenderness/mass/nodules Lungs: clear to auscultation bilaterally Heart: regular rate and rhythm, S1, S2 normal, no murmur, click, rub or gallop Abdomen: soft, non-tender; bowel sounds normal; no masses, no organomegaly Extremities: extremities normal, atraumatic, no cyanosis or edema Pulses: 2+ and symmetric Neurologic: AXO3, facial droop,intact upper and lower motor and sensation DATA BMP 144 110* 15 102* 4.1 25 1.1 CaMgPhos 8.9 2.0 2.6 LFT 22 89 13 4.5 CBC 4.26 13.2 192 40.6 Coag Last labs from current encounter as of 05/18/19-12:20 No results for input(s): TROPONIN, BNP in the last 72 hours. No results for input(s): PROCALCITONI in the last 72 hours. Recent Labs 05/17/19 0425 05/16/19 1250 WBC 4.26 6.50 HGB 13.2 14.9 HCT 40.6 45.8 PLT 192 222 Recent Labs 05/17/19 0425 05/16/19 1250 NA 144 142 K 4.1 4.2 CL 110* 110* CO2 25 27 BUN 15 15 CREA 1.1 1.14 CALCIUM 8.9 9.0 MG 2.0 -- PHOS 2.6 -- ALBUMIN -- 4.5 Recent Labs Lab 05/17/19 0425 MG 2.0 Results for SIMON MCCARTHY ( ) as of 05/17/2019 11:11 Ref. Range 05/16/2019 12:50 Cholesterol Latest Ref Range: <200 mg/dL 196 HDL Cholesterol Latest Ref Range: >40 mg/dL 51 LDL, Calculated Latest Ref Range: <100 mg/dL 124 (H) Triglycerides Latest Ref Range: <150 mg/dL 104 Microbiology Results (72 hrs) No results found for the last 72 hours. Recent Results (from the past 360 hour(s)) CT Angiogram Head Neck Acute Stroke Narrative CT ANGIOGRAM OF THE HEAD WITHOUT AND WITH CONTRAST; CT ANGIOGRAM OF THE NECK WITH CONTRAST CLINICAL INFORMATION: Left-sided facial droop, slurred speech COMPARISON: SINUS LIMITED WO CONTRAST (07/13/2013); PROCEDURE: CT Head: Axial images were obtained through the brain IV without contrast. CT Angiogram Head: Thin section axial images were obtained through the brain during the arterial phase after IV administration. CT Angiogram Neck: Thin section axial images were obtained through the neck during the arterial phase after IV administration. NASCET criteria applied for internal carotid stenosis determination. 3D and multiplanar reconstructions were obtained from the acquisition data. Contrast: 100mL Omnipaque 350 IV. At least one of the following CT dose optimization techniques were used: Automated exposure control; Adjustment of mA and/or kV according to patient size; Use of iterative reconstruction technique. FINDINGS: CT Head: Brain: No intracranial hemorrhage, midline shift or pathologic mass effect. No cerebral edema, mass lesion, or evidence of acute infarct. ASPECTS score is 10. No areas of abnormal enhancement are seen within the brain parenchyma, leptomeninges or dura. Ventricles and extra-axial fluid spaces: Normal. Paranasal sinuses and mastoid air cells: The paranasal sinuses demonstrate prior endoscopic sinus surgery with bilateral maxillary antrectomies, resections of the middle nasal turbinates, superior nasal turbinates and ethmoid air cells. The mastoid air cells are normally aerated. Calvarium and extracranial soft tissues: Normal. Orbits: The orbits and their contents demonstrate prior bilateral cataract surgery but are otherwise normal. CTA Head: Intracranial Segments of the Internal Carotid Arteries: Normal contrast enhancement without evidence of occlusion, intraluminal thrombus, significant stenosis, or aneurysm. Middle Cerebral Arteries: Normal contrast enhancement without evidence of occlusion, intraluminal thrombus, significant stenosis, or aneurysm. Anterior Cerebral Arteries: Normal contrast enhancement without evidence of occlusion, intraluminal thrombus, significant stenosis, or aneurysm. The anterior communicating artery is patent. Posterior Circulation: The right vertebral artery appears to be occluded at the C1 level as it enters the foramen magnum but then reconstitutes via retrograde flow from the basilar artery to supply the posterior inferior cerebellar artery. 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 The left vertebral artery remains widely patent and is the primary supply to the basilar artery. The basilar artery is normal in course and caliber. The basilar artery supplies the anterior inferior cerebellar arteries, superior cerebellar arteries and posterior cerebral arteries a prominent right posterior communicating artery is noted. The left posterior communicating artery is not seen and may be congenitally absent. CTA Neck: Aortic Arch: Conventional anatomy. Brachiocephalic and subclavian arteries demonstrate normal contrast enhancement without evidence of occlusion, intraluminal thrombus, or significant stenosis. Right Carotid Artery: Prior right carotid endarterectomy noted. Carotid bulb and internal carotid artery are widely patent. Mid cervical right ICA normal lumen measures 3.8 mm, image 110 series 8, 0% NASCET stenosis. The intracranial segment of the distal internal carotid artery is patent. Left Carotid Artery: Prior left carotid endarterectomy noted. Soft plaque creates 50% narrowing in the distal common carotid artery, see image 165 series 8. 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 There is no thrombus within this aneurysm. The left internal carotid artery is otherwise widely patent. The mid cervical left ICA normal lumen measures 3.8 mm, image 110 series 8, 0% NASCET stenosis. The intracranial portion of the left internal carotid artery is patent. Vertebral Arteries: The left vertebral artery is widely patent and is dominant. The right vertebral artery is extremely narrow in caliber throughout its entire course despite a relatively normal size of the foramen transversarium. 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 The artery appears to occlude at the C1 level prior to entering the foramen magnum. IMPRESSION: 1. The right vertebral artery is extremely narrow in caliber throughout its entire course despite a relatively normal size of the foramen transversarium. 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 The artery appears to occlude at the C1 level prior to entering the foramen magnum. It reconstitutes via retrograde flow from the basilar artery to supply the right posterior inferior cerebellar artery. 2. Bilateral carotid endarterectomy is noted. 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 3. No acute intracranial findings. 4. Aspects score is 10. Signed by: Jay Jay Tan Edward Sign Date/Time: 05/16/2019 2:54 PM MRI Brain wo Contrast Narrative MRI BRAIN WITHOUT CONTRAST CLINICAL INFORMATION: Slurred speech, facial drop COMPARISON: No comparison. PROCEDURE: Sagittal T1, axial FLAIR, axial T2, axial T1, axial gradient susceptibility, coronal T2, axial DWI. FINDINGS: Brain: Abnormal restricted diffusion is seen within the right anterior melissa radiata compatible with an area of acute infarction. This region measures approximately 15 mm in diameter. No evidence of hemorrhage or mass effect is seen. Patchy white matter changes are present throughout. The basal ganglia and thalami are symmetric. The brainstem and cerebellum are unremarkable. Ventricles and extra-axial fluid spaces: No abnormal extra-axial fluid collections. Sella, suprasellar cistern, and orbits: Bilateral cataract surgery. Major vascular flow voids: Normal. Calvarium and extracranial soft tissues: Normal. Paranasal sinuses and mastoid air cells: Bilateral ethmoidectomies. IMPRESSION: Abnormal diffusion restriction is seen in the right centrum semiovale compatible with an area of acute infarction. Signed by: Lakshmi Nicolas Richard Sign Date/Time: 05/16/2019 6:23 PM ECHO There is moderate increased left ventricular wall thickness. The left ventricular ejection fraction is 75%. Aortic valve area by continuity equation is 1.87 cm2. Ascending aorta is 4.37 cm. I have reviewed the above labs and radiology reports. PROBLEM LIST Principal Problem: Acute CVA (cerebrovascular accident) Active Problems: Benign essential hypertension Coronary artery disease involving [place] coronary artery of [place] heart Chronic cough History of CEA (carotid endarterectomy) Hx of CABG Facial droop . 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 will continue plavix and statin also Permissive hypertension. Q4 neuro checks,PT/OT and speech and IPR consult as indicated noted ECHO repor t as above ,d/w CT angiogram of the neck revealed right vertebral artery dissection/occlusion and left flores tid bulb aneurysm. was seen by Dr. Centeno of vascular surgery he recommended aspirin and Plavix Also recommend w ork-up for cardiac source of CVA. No acute surgical treatment is planned at this time. May need eventual treatment of left carotid saccular aneurysm but this will be done as outpatie nt Hypertension elevated will resume metoprolol/cozaar monitor BP and adjust as needed Coronary artery disease/history of CABG Continue aspirin and statin for now. Telemetry bed. Chronic cough Albuterol as needed for wheezing and shortness of breath and MDI add tessalon as needed History of carotid endarterectomy DVT/GI px PT/OT eval and tx and CW for discharge planning Review of H/P, imaging and labs, formulation of assessment and plan, discussion with the pa tient/family, staff, and providers. Portions of this chart may have been copied from previous notes for continuity of care purp oses. Disposition: Admitted Code Status: Full Code Daron Draper MD 05/18/2019 Sammie Espinosa MD - 05/18/2019 8:30 AM PDT Subjective: Patient seen and examined. Simon Mccarthy is a 79 y.o. male admitted to the hospital for left facial weakness and sl urred speech. Patient Summary: please refer to H&P and My consult. Current complaints: Stable, no new events. No headache, visual change, dysphagia, new weakn ess or numbness. Objective: Vitals: Temp: [36.4 C (97.5 F)-36.8 C (98.2 F)] 36.7 C (98.1 F) Pulse: [64-74] 66 Resp: [16-18] 18 BP: (131-198)/(71-95) 142/77 Speech: Mildly slurred, but fluent and spontaneous. Cognition: The patient is oriented to person, place, and time. Cranial Nerves: At this time, the pupils are equal, round, and reactive to light. Extraocul ar movements are intact. The face is asymmetric (Lt sided weakness, central). Voice is alfa l. Strength: Strength is 5/5 in the upper and lower limbs. Light Touch: Normal light touch sensation in upper and lower extremities. CURRENT MEDICATIONS: Scheduled Meds: aspirin 81 mg Oral Daily atorvaSTATin 80 mg Oral Nightly budesonide-formoterol 2 puff Inhalation RT BID clopidogrel 75 mg Oral Daily enoxaparin 40 mg Subcutaneous Q24H pantoprazole 40 mg Oral QAM AC Labs Lab Results Component Value Date WBC 4.26 05/17/2019 HGB 13.2 05/17/2019 HCT 40.6 05/17/2019 MCV 86.3 05/17/2019 PLT 192 05/17/2019 Lab Results Component Value Date BUN 15 05/17/2019 NA 144 05/17/2019 K 4.1 05/17/2019 CL 110 (H) 05/17/2019 CO2 25 05/17/2019 LP: LDL-C 124 HGBA1c: 5.[address] Angiogram Head Neck Acute Stroke: Result Date: 05/16/2019: 1. The right vertebral artery is extremely narrow in caliber throughout its entire course d espite a relatively normal size of the foramen transversarium. This suggests extensive diss ection of the right vertebral artery. The artery appears to occlude at the C1 level prior t o entering the foramen magnum. It reconstitutes via retrograde flow from the basilar artery to supply the right posterior inferior cerebellar artery. 2. Bilateral carotid endarterecto my is noted. A saccular aneurysm arises from the lateral margin of the left carotid bulb wi th a mouth measuring 6.7 x 9.4 mm and a dome height of 3.7 mm. 3. No acute intracranial find ings. 4. Aspects score is 10. Signed by: Jay Jay Tan, Ambrocio Sign Date/Time: 05/16/2019 2: 54 PM Brain MRI: Abnormal diffusion restriction is seen in the right centrum semiovale compatible with an ar ea of acute infarction. Echo: There is moderate increased left ventricular wall thickness. The left ventricular ejection fraction is 75%. Aortic valve area by continuity equation is 1.87 cm2. Ascending aorta is 4.37 cm. Normal size left atrium. The interatrial septum is normal. EKG: Done but not available to me. Normal sinus rhythm per report. Telemetry: No arrhythmia. Assessment: 1- Left facial weakness and slurred speech due to right MCA stroke, most likely due to lyssa ry to artery process or due to small vessels disease diease. The location and the size are not suggestive of cardiac etiology. 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 4- HLD, HTN, CAD and polycythemia. PT: Home, no PT. Plan: 1. Telemetry bed with good hydration. 2. Vital signs and neurocheck every 4 hours. 3. BP max was 198/95, gradual control of BP by 10-15% per 24 hours toward < 140/90. However , avoid hypotension. 4. For secondary prophylaxis, recommend ASA 81 mg (no evidence that Plavix or Aggrenox are superior to ASA, especially with uncontrolled risk factors (elevated LDL-C and hypertension) ) and high intensity statin if able to tolerate to keep LDL 40 - 70. Need good control of ri sk factors. Good hydration is important and follow with pcp in regard to polycythemia. 5. #3 and #4, per vascular surgery. 6. General care including GI and DVT prophylaxis and risk factors modification (HTN, HLD, a nd obesity) per primary team. Thank you for allowing us to participate in your patient care. Please call with questions. Will sign off. Patient is to follow with neurology in 3-4 weeks. Follow with PCP in 1 week. Educated him about healthy diet, weight control, physical exerci ses and BP monitor. Theresa Calvin RN - 05/18/2019 4:44 AM PDTVSS, pt A&Ox4, no changes in neuro checks. No other changes from shift assessment. End of shift review and 24 hour chart check complet marta Sawant RN Sammie Espinosa MD - 05/17/2019 3:19 PM PDT Subjective: Patient seen and examined. Simon Mccarthy is a 79 y.o. male admitted to the hospital for left facial weakness and sl urred speech. Patient Summary: please refer to H&P and My consult. Current complaints: Stable, no new events. Objective: Vitals: Temp: [36.4 C (97.5 F)-36.7 C (98 F)] 36.4 C (97.5 F) Pulse: [56-65] 64 Resp: [16-18] 16 BP: (148-189)/(72-92) 152/78 Speech: Mildly slurred, but fluent and spontaneous. Cognition: The patient is oriented to person, place, and time. Cranial Nerves: At this time, the pupils are equal, round, and reactive to light. Extraocul ar movements are intact. The face is asymmetric (Lt sided weakness, central). Voice is alfa l. Coordination: Normal finger to nose. Strength: Strength is 5/5 in the upper and lower limbs. Light Touch: Normal light touch sensation in upper and lower extremities. CURRENT MEDICATIONS: Scheduled Meds: aspirin 81 mg Oral Daily atorvaSTATin 80 mg Oral Nightly budesonide-formoterol 2 puff Inhalation RT BID clopidogrel 75 mg Oral Daily enoxaparin 40 mg Subcutaneous Q24H pantoprazole 40 mg Oral QAM AC Labs Lab Results Component Value Date WBC 4.26 05/17/2019 HGB 13.2 05/17/2019 HCT 40.6 05/17/2019 MCV 86.3 05/17/2019 PLT 192 05/17/2019 Lab Results Component Value Date BUN 15 05/17/2019 NA 144 05/17/2019 K 4.1 05/17/2019 CL 110 (H) 05/17/2019 CO2 25 05/17/2019 LP: LDL-C 124 HGBA1c: 5.[address] Angiogram Head Neck Acute Stroke: Result Date: 05/16/2019: 1. The right vertebral artery is extremely narrow in caliber throughout its entire course d espite a relatively normal size of the foramen transversarium. This suggests extensive diss ection of the right vertebral artery. The artery appears to occlude at the C1 level prior t o entering the foramen magnum. It reconstitutes via retrograde flow from the basilar artery to supply the right posterior inferior cerebellar artery. 2. Bilateral carotid endarterecto my is noted. A saccular aneurysm arises from the lateral margin of the left carotid bulb wi th a mouth measuring 6.7 x 9.4 mm and a dome height of 3.7 mm. 3. No acute intracranial find ings. 4. Aspects score is 10. Signed by: Jay Jay Tan Edward Sign Date/Time: 05/16/2019 2: 54 PM Brain MRI: Abnormal diffusion restriction is seen in the right centrum semiovale compatible with an ar ea of acute infarction. Echo: P EKG: Done but not available to me. Normal sinus rhythm per report. Telemetry: No arrhythmia. Assessment: 1- Left facial weakness and slurred speech due to right MCA stroke, artery to artery or sma ll V diease. 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 4- HLD, CAD and polycythemia. PT: Home, no PT. Plan: 1. Telemetry bed with reasonable hydration. 2. Vital signs and neurocheck every 4 hours. 3. After the acute phase and as if the patient is stable neurologically, we may start contr olling BP by 10-15% per 24 hours toward < 140/90. However, avoid hypotension. 4. For secondary prophylaxis, recommend 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 (ASA 81 mg or Plavix 75 mg) and high intensity statin if able to tolerate to keep LDL 40 - 70. Need good control of risk factors. 5. TTE is pending. 6. General care including GI and DVT prophylaxis and risk factors modification (HTN, HLD, a nd obesity) per primary team. Thank you for allowing us to participate in your patient care. Please call with questions. Daron Carmona MD - 8:32 AM PDT [facility]:hospitalist Progress Note Hospital Day: LOS: 1 day SUBJECTIVE Patient Summary: refer to H&P and consult note for details Events Overnight: Patient seen and examined, denies CP or SOB no abdominal pain,no ne w focal Neurologic deficits,elevated BP,facaial droop noted,RN present, Addressed all quest ions ,pending ECHO Scheduled Medications aspirin 81 mg Oral Daily atorvaSTATin 80 mg Oral Nightly budesonide-formoterol 2 puff Inhalation RT BID clopidogrel 75 mg Oral Daily enoxaparin 40 mg Subcutaneous Q24H pantoprazole 40 mg Oral QAM AC Continuous Infusions PRN Medications acetaminophen OR acetaminophen OR acetaminophen, albuterol, benzonatate, docusate s odium, labetalol, ondansetron, ondansetron, polyethylene glycol, senna OBJECTIVE Vital Signs: BP 180/87 | Pulse 65 | Temp 36.6 C (97.9 F) (Oral) | Resp 16 | Ht 1.753 m (5' 9") | Wt 79.7 kg (175 lb 11.2 oz) | SpO2 98% | BMI 25.95 kg/m Intake/Output Summary (Last 24 hours) at 05/17/2019 1117 Last data filed at 05/17/2019 0712 Gross per 24 hour Intake 1879 ml Output 1150 ml Net 729 ml General appearance: alert, appears stated age, cooperative and no distress Head: Normocephalic, without obvious abnormality, atraumatic Neck: no adenopathy, no carotid bruit, no JVD, supple, symmetrical, trachea midline and thy roid not enlarged, symmetric, no tenderness/mass/nodules Lungs: clear to auscultation bilaterally Heart: regular rate and rhythm, S1, S2 normal, no murmur, click, rub or gallop Abdomen: soft, non-tender; bowel sounds normal; no masses, no organomegaly Extremities: extremities normal, atraumatic, no cyanosis or edema Pulses: 2+ and symmetric Neurologic: AXO3, facial droop,intact upper and lower motor and sensation DATA BMP 144 110* 15 102* 4.1 25 1.1 CaMgPhos 8.9 2.0 2.6 LFT 22 89 13 4.5 CBC 4.26 13.2 192 40.6 Coag Last labs from current encounter as of 05/17/19-11:17 No results for input(s): TROPONIN, BNP in the last 72 hours. No results for input(s): PROCALCITONI in the last 72 hours. Recent Labs 05/17/19 0425 05/16/19 1250 WBC 4.26 6.50 HGB 13.2 14.9 HCT 40.6 45.8 PLT 192 222 Recent Labs 05/17/19 0425 05/16/19 1250 NA 144 142 K 4.1 4.2 CL 110* 110* CO2 25 27 BUN 15 15 CREA 1.1 1.14 CALCIUM 8.9 9.0 MG 2.0 -- PHOS 2.6 -- ALBUMIN -- 4.5 Recent Labs Lab 05/17/19 0425 MG 2.0 Results for SIMON MCCARTHY ( ) as of 05/17/2019 11:11 Ref. Range 05/16/2019 12:50 Cholesterol Latest Ref Range: <200 mg/dL 196 HDL Cholesterol Latest Ref Range: >40 mg/dL 51 LDL, Calculated Latest Ref Range: <100 mg/dL 124 (H) Triglycerides Latest Ref Range: <150 mg/dL 104 Microbiology Results (72 hrs) No results found for the last 72 hours. Recent Results (from the past 360 hour(s)) CT Angiogram Head Neck Acute Stroke Narrative CT ANGIOGRAM OF THE HEAD WITHOUT AND WITH CONTRAST; CT ANGIOGRAM OF THE NECK WITH CONTRAST CLINICAL INFORMATION: Left-sided facial droop, slurred speech COMPARISON: SINUS LIMITED WO CONTRAST (07/13/2013); PROCEDURE: CT Head: Axial images were obtained through the brain IV without contrast. CT Angiogram Head: Thin section axial images were obtained through the brain during the arterial phase after IV administration. CT Angiogram Neck: Thin section axial images were obtained through the neck during the arterial phase after IV administration. NASCET criteria applied for internal carotid stenosis determination. 3D and multiplanar reconstructions were obtained from the acquisition data. Contrast: 100mL Omnipaque 350 IV. At least one of the following CT dose optimization techniques were used: Automated exposure control; Adjustment of mA and/or kV according to patient size; Use of iterative reconstruction technique. FINDINGS: CT Head: Brain: No intracranial hemorrhage, midline shift or pathologic mass effect. No cerebral edema, mass lesion, or evidence of acute infarct. ASPECTS score is 10. No areas of abnormal enhancement are seen within the brain parenchyma, leptomeninges or dura. Ventricles and extra-axial fluid spaces: Normal. Paranasal sinuses and mastoid air cells: The paranasal sinuses demonstrate prior endoscopic sinus surgery with bilateral maxillary antrectomies, resections of the middle nasal turbinates, superior nasal turbinates and ethmoid air cells. The mastoid air cells are normally aerated. Calvarium and extracranial soft tissues: Normal. Orbits: The orbits and their contents demonstrate prior bilateral cataract surgery but are otherwise normal. CTA Head: Intracranial Segments of the Internal Carotid Arteries: Normal contrast enhancement without evidence of occlusion, intraluminal thrombus, significant stenosis, or aneurysm. Middle Cerebral Arteries: Normal contrast enhancement without evidence of occlusion, intraluminal thrombus, significant stenosis, or aneurysm. Anterior Cerebral Arteries: Normal contrast enhancement without evidence of occlusion, intraluminal thrombus, significant stenosis, or aneurysm. The anterior communicating artery is patent. Posterior Circulation: The right vertebral artery appears to be occluded at the C1 level as it enters the foramen magnum but then reconstitutes via retrograde flow from the basilar artery to supply the posterior inferior cerebellar artery. 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 The left vertebral artery remains widely patent and is the primary supply to the basilar artery. The basilar artery is normal in course and caliber. The basilar artery supplies the anterior inferior cerebellar arteries, superior cerebellar arteries and posterior cerebral arteries a prominent right posterior communicating artery is noted. The left posterior communicating artery is not seen and may be congenitally absent. CTA Neck: Aortic Arch: Conventional anatomy. Brachiocephalic and subclavian arteries demonstrate normal contrast enhancement without evidence of occlusion, intraluminal thrombus, or significant stenosis. Right Carotid Artery: Prior right carotid endarterectomy noted. Carotid bulb and internal carotid artery are widely patent. Mid cervical right ICA normal lumen measures 3.8 mm, image 110 series 8, 0% NASCET stenosis. The intracranial segment of the distal internal carotid artery is patent. Left Carotid Artery: Prior left carotid endarterectomy noted. Soft plaque creates 50% narrowing in the distal common carotid artery, see image 165 series 8. 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 There is no thrombus within this aneurysm. The left internal carotid artery is otherwise widely patent. The mid cervical left ICA normal lumen measures 3.8 mm, image 110 series 8, 0% NASCET stenosis. The intracranial portion of the left internal carotid artery is patent. Vertebral Arteries: The left vertebral artery is widely patent and is dominant. The right vertebral artery is extremely narrow in caliber throughout its entire course despite a relatively normal size of the foramen transversarium. 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 The artery appears to occlude at the C1 level prior to entering the foramen magnum. IMPRESSION: 1. The right vertebral artery is extremely narrow in caliber throughout its entire course despite a relatively normal size of the foramen transversarium. 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 The artery appears to occlude at the C1 level prior to entering the foramen magnum. It reconstitutes via retrograde flow from the basilar artery to supply the right posterior inferior cerebellar artery. 2. Bilateral carotid endarterectomy is noted. 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 3. No acute intracranial findings. 4. Aspects score is 10. Signed by: Jay Jay Tan Edward Sign Date/Time: 05/16/2019 2:54 PM MRI Brain wo Contrast Narrative MRI BRAIN WITHOUT CONTRAST CLINICAL INFORMATION: Slurred speech, facial drop COMPARISON: No comparison. PROCEDURE: Sagittal T1, axial FLAIR, axial T2, axial T1, axial gradient susceptibility, coronal T2, axial DWI. FINDINGS: Brain: Abnormal restricted diffusion is seen within the right anterior melissa radiata compatible with an area of acute infarction. This region measures approximately 15 mm in diameter. No evidence of hemorrhage or mass effect is seen. Patchy white matter changes are present throughout. The basal ganglia and thalami are symmetric. The brainstem and cerebellum are unremarkable. Ventricles and extra-axial fluid spaces: No abnormal extra-axial fluid collections. Sella, suprasellar cistern, and orbits: Bilateral cataract surgery. Major vascular flow voids: Normal. Calvarium and extracranial soft tissues: Normal. Paranasal sinuses and mastoid air cells: Bilateral ethmoidectomies. IMPRESSION: Abnormal diffusion restriction is seen in the right centrum semiovale compatible with an area of acute infarction. Signed by: Lakshmi Nicolas Richard Sign Date/Time: 05/16/2019 6:23 PM I have reviewed the above labs and radiology reports. PROBLEM LIST Principal Problem: Acute CVA (cerebrovascular accident) Active Problems: Benign essential hypertension Coronary artery disease involving [place] coronary artery of [place] heart Chronic cough History of CEA (carotid endarterectomy) Hx of CABG Facial droop . 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 will continue ASA/plavix and statin also Permiss tc hypertension. Q4 neuro checks,PT/OT and speech and IPR consult as indicated pending ECHO CT angiogram of the neck revealed right vertebral artery dissection/occlusion and left flores tid bulb aneurysm. was seen by Dr. Centeno of vascular surgery he recommended aspirin and Plavix Also recommend w ork-up for cardiac source of CVA. No acute surgical treatment is planned at this time. May need eventual treatment of left carotid saccular aneurysm but this will be done as outpatie nt Hypertension hold the patient's usual metoprolol Permissive hypertension. Coronary artery disease/history of CABG Continue aspirin and statin for now. Telemetry bed. Chronic cough Albuterol as needed for wheezing and shortness of breath and MDI add tessalon as needed History of carotid endarterectomy DVT/GI px PT/OT eval and tx and CW for discharge planning Review of H/P, imaging and labs, formulation of assessment and plan, discussion with the pa tient/family, staff, and providers. Portions of this chart may have been copied from previous notes for continuity of care purp oses. Disposition: Admitted Code Status: Full Code Daron Draper MD 05/17/2019 Mellisa Myers RN - 05/17/2019 4:06 AM PDTPt A&O x4, VSS on RA. BP sys 148-187. BS 121 during the nigh t. No change in neuro checks, only deficit is Lt facial drooping. Pt indep in walking to BR. Bed alarm on for safety during the night, pt has been using call light to get up. Pt has been NPO since 0000, tolerated eating dinner. No swallowing issues noted. Chart check complete, patent IV. Report to be given to day RN at 0700. esRahul bush R N - 05/16/2019 6:39 PM PDTPt arrived on unit at 1830 from MRI. BP elevated 189/92, HR 50's, afebrile. Pt ambulating in room with no deficits from stroke, tolerating well. . Rahul García RN documented in this en counter H&P Notes Robb Echols MD - 05/16/2019 4:54 PM PDT [facility]: Hospitalist Admission History & Physical Date of Admission: 05/16/2019 Requesting Physician: Emergency Department Reason for Admission: Left facial droop, slurred speech. History Obtained From: History obtained from chart review, the patient and EDMD, son. CHIEF COMPLAINT: Left facial droop, slurred speech. HISTORY OF PRESENT ILLNESS The patient is a 79 y.o. male with significant past medical history as outlined below under the past medical history section with history of coronary artery disease a status post 6 ve ssel bypass in 2008 and bilateral tolerated endarterectomy all done by Dr. Carlin, asthma, hyperlipidemia intolerant to statins, history of hypertension, polycythemia treated with per iodic phlebotomy who presented with sudden onset of left facial droop associated with slurri ng of speech. He is a non-smoker and denies any premature cardiovascular disease in his fam lee. 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 The patient denied h aving any weakness or sensory deficit and his extremities. He went home and had dinner late r on without any choking episodes. This morning, the patient noticed that he had some diffi culty controlling his drink as if he is drooling on the left side. He continues to have lef t-sided droop and mild slurring of speech. He usually goes to outpatient rehab for his left wrist and at around 10:30 AM today, he was noticed by his therapist to have the symptoms. Blood pressure was checked and noted to be 179 systolic. Subsequently, the patient was advi sed ER visit. Patient also notes having lingering bronchitis type infection for the past mo nth but no fevers or chills. In the emergency room, he remained hemodynamically stable. His initial laboratories are un remarkable. His EKG showed ST elevation in V1 and V2 but no reciprocal tracing. This is si milar to an EKG done in 05/2018. CT angiogram of the head and neck was negative for acute in tracranial findings however there is a right vertebral artery possible extensive dissection and appears occluded at the C1 level prior to entering the foramen magnum. 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 Subsequently, the patient was started on asp irin and admitted under the hospitalist service for further evaluation and management. REVIEW OF SYSTEMS Review of Systems Constitutional: Negative. HENT: Negative. Eyes: Negative. Respiratory: Negative. Cardiovascular: Negative. Gastrointestinal: Negative. Genitourinary: Negative. Skin: Negative. Neurological: Positive for speech change. Negative for dizziness, tingling, tremors and sen nathaniel change. Left facial droop Endo/Heme/Allergies: Negative. 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 Hyperlipidemia Hyperlipidemia Hypertension Myalgia s/p lovastatin + meningitis Nasal and sinus discharge Occlusion of carotid artery PAD (peripheral artery disease) ([facility]) Polycythemia vera ([facility]) 2016 Renal stone Sciatica Sinusitis Chronic Trigeminy Ventricular pre-excitation Past Surgical History: Procedure Laterality Date COLONOSCOPY CORONARY ARTERY BYPASS GRAFT 2008 6 vessel/ RLE veing harvest CORONARY ARTERY BYPASS GRAFT EYE SURGERY L and R CEA 2010 NASAL SEPTUM SURGERY OTHER SURGICAL HISTORY CATARACT EXTRACTION TONSILLECTOMY AND ADENOIDECTOMY Prior to Admission medications Medication Sig Start Date End Date Taking? Authorizing Provider albuterol (VENTOLIN HFA) 90 mcg/puff inhaler Inhale 2 puffs into the lungs every 6 hours as needed. Historical ProviderMD albuterol 90 mcg/puff inhaler Inhale 2 puffs into the lungs every 4 (four) hours as needed for Wheezing. 11/28/18 Historical ProviderMD aspirin 325 mg EC tablet Take 325 mg by mouth daily. Historical Provider, aspirin 325 mg tablet Take 325 mg by mouth Daily. Historical Provider, aspirin 81 MG EC tablet Take 81 mg by mouth daily. Historical Provider, azithromycin (ZITHROMAX) 250 mg tablet Take 1 tablet by mouth Three times a week. 07/27/13 Lio Mendez MD fenofibrate (TRICOR) 145 mg tablet Take 1 tablet by mouth daily. 01/31/19 01/31/20 Historical ProviderMD fluticasone-salmeterol (ADVAIR) 100-50 mcg/puff diskus inhaler Inhale 1 puff into the lungs Twice Daily. Historical Provider, fluticasone-salmeterol (ADVAIR, WIXELA INHUB) 250-50 mcg/puff diskus inhaler Inhale 1 puff into the lungs 2 (two) times daily. 11/28/18 Historical ProviderMD lovastatin (MEVACOR) 10 MG tablet Take 10 mg by mouth nightly. Historical Provider, metoprolol succinate (TOPROL-XL) 25 mg 24 hr tablet Take 1 tablet by mouth nightly. 01/31/19 01/31/20 Historical ProviderMD metoprolol tartrate (LOPRESSOR) 25 mg tablet Take by mouth. Take 1/2 tablet daily Histo rical ProviderMD omeprazole (PRILOSEC) 10 mg capsule Take 20 mg by mouth every morning (before breakfast). Historical Provider, omeprazole (PRILOSEC) 20 mg capsule Take 20 mg by mouth every morning before breakfast. Historical Provider, Allergies Allergen Reactions Penicillins Rash Statins Other (See Comments) Cramping in the legs, muscle weakness Pravastatin Other (See Comments) Family History Problem Relation Age of Onset Coronary artery disease Mother * Mother DJD High cholesterol Mother Hypertension Mother Kidney disease Brother * Brother AAA Social History Socioeconomic History Marital status: Spouse name: Not on file Number of children: Not on file Years of education: Not on file Highest education level: Not on file Social Needs Financial resource strain: Not on file Food insecurity - worry: Not on file Food insecurity - inability: Not on file Transportation needs - medical: Not on file Transportation needs - non-medical: Not on file Occupational History Not on file Tobacco Use Smoking status: Never Smoker Smokeless tobacco: Former User Substance and Sexual Activity Alcohol use: Yes Comment: Alcoholic Drinks/day: occasionally Drug use: No Comment: Drug use: No Sexual activity: Not on file Other Topics Concern Not on file Social History Narrative Not on file ACTIVE COMORBIDITIES: Active comorbid conditions include: - CAD; without angina - hypertension; essential - asthma - Additional Diagnosis: Polycythemia - Additional Diagnosis: Vertebral artery stenosis, asymptomatic, right PHYSICAL EXAM Vital Signs: BP 169/78 | Pulse 65 | Temp 36.9 C (98.5 F) | Resp 17 | Ht 1.753 m (5' 9") | Wt 79 .4 kg (175 lb) | SpO2 97% | BMI 25.84 kg/m General appearance: alert, appears stated age and cooperative Head: Normocephalic, without obvious abnormality, atraumatic Neck: no adenopathy, no carotid bruit, no JVD, supple, symmetrical, trachea midline and thy roid not enlarged, symmetric, no tenderness/mass/nodules Lungs: clear to auscultation bilaterally Heart: regular rate and rhythm, S1, S2 normal, no murmur, click, rub or gallop Abdomen: soft, non-tender; bowel sounds normal; no masses, no organomegaly Extremities: extremities normal, atraumatic, no cyanosis or edema Pulses: 2+ and symmetric Skin: Skin color, texture, turgor normal. No rashes or lesions Lymph nodes: Cervical, supraclavicular, and axillary nodes normal. Neurologic: Mental status: Alert, oriented, thought content appropriate Cranial nerves: II: visual acuity normal bilaterally, II: visual field normal, II: pupils e qual, round, reactive to light and accommodation, III,VII: ptosis none, III,IV,: extraocul ar muscles extra-ocular motions intact, V: mastication normal, V: facial light touch sensati on normal bilaterally, VII: upper facial muscle function normal bilaterally, VII: lower faci al muscle function reduced on the left, XI: trapezius strength normal bilaterally, XI: snyder ocleidomastoid strength normal bilaterally, XI: neck flexion strength normal Motor:grossly normal Coordination: finger to nose normal bilaterally Gait: Normal DATA, personally reviewed Recent Labs Lab 05/16/19 1250 WBC 6.50 HGB 14.9 HCT 45.8 PLT 222 MONOPCT 9.44 Recent Labs Lab 05/16/19 1250 NA 142 K 4.2 CL 110* CO2 27 BUN 15 CALCIUM 9.0 ALKPHOS 89 ALT 13 AST 22 Recent Labs Lab 05/16/19 1250 TROPONINT 0.022 Radiology, personally reviewed Ct Angiogram Head Neck Acute Stroke Result Date: 05/16/2019 CT ANGIOGRAM OF THE HEAD WITHOUT AND WITH CONTRAST; CT ANGIOGRAM OF THE NECK WITH CONTRAST CLINICAL IMPRESSION: 1. The right vertebral artery is extremely narrow in caliber throughou t its entire course despite a relatively normal size of the foramen transversarium. This reyes ggests extensive dissection of the right vertebral artery. The artery appears to occlude at the C1 level prior to entering the foramen magnum. It reconstitutes via retrograde flow fr om the basilar artery to supply the right posterior inferior cerebellar artery. 2. Bilateral carotid endarterectomy is noted. 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 3. No ac cachil dehe intracranial findings. 4. Aspects score is 10. Signed by: Jay Jay Tan Edward Sign Adalberto e/Time: 05/16/2019 2:54 PM EKG, personally reviewed Normal sinus rhythm, 61 bpm, QTC 410, there is ST elevation on V1 and V2. This is similar to 05/2018. PROBLEM LIST Principal Problem: Facial droop Active Problems: Benign essential hypertension Coronary artery disease involving [place] coronary artery of [place] heart Chronic cough History of CEA (carotid endarterectomy) Hx of CABG ASSESSMENT & PLAN Left facial droop Admit to inpatient. Patient has high risk for cardiovascular diseases. There is associated slurring of speech. On exam however patient's motor deficit are minimal. I anticipate at least 2-3 hospital midnight stay. It is my professional judgment that afte r evaluating the patient's complex medical problems, the patient should be admitted as inpat ient. The patient would be significantly threatened if care was provided in a lesser level o f care. The patient is demonstrating signs and symptoms severe enough to warrant the need fo r inpatient care to prevent deterioration. On exam, patient is able to close eyes tightly and raise most eyebrows up suggestive of pos sible central lesion. Check MRI to confirm any stroke. Differential diagnosis would still be Nassar's palsy considering that the patient has been alvarado ving some sort of bronchitis for the past month. Until proven otherwise, will treat as acute stroke. CT angiogram of the head unremarkable. CT angiogram of the neck revealed right vertebral artery dissection/occlusion and left flores tid bulb aneurysm. Discussed with Dr. Centeno of vascular surgery the CTA of the neck findings. He recommended as pirin and Plavix for now. N.p.o. midnight for possible intervention. Permissive hypertension. Labetalol 10 mg IV every 6 hours as needed for systolic greater than 220. Patient is intolerant to statins but willing to try again. I will give Lipitor 80 mg daily and adjust according to lipid profile. Telemetry bed for any arrhythmia. Echocardiogram with bubble study. PT/OT/CELLOPHANER consultation. Consulted Dr. Reese of neurology for further recommendations. TPA not indicated, symptoms started more than 24 hours prior to ER visit. Hypertension Will hold the patient's usual metoprolol. Permissive hypertension. Coronary artery disease/history of CABG Abnormal EKG noted with ST elevation in V1 and V2. However, these are similar to EKG in 2017. Continue aspirin and statin for now. Telemetry bed. Chronic cough Patient is on inhalers at home. I suspect underlying COPD versus asthma. Also reports of lingering bronchitis in the past month. Albuterol as needed for wheezing and shortness of breath. History of carotid endarterectomy CT angiogram of the neck revealed left carotid bulb aneurysm. Continue aspirin. Added Plavix per recommendation from vascular surgery. His symptoms however of left facial droop does not correlate. Possible embolic event from the left carotid aneurysm. DVT prophylaxis: In place. GI prophylaxis: In place. Disposition: Inpatient. Code Status: Full code. Primary Care Physician: Matias Muñoz MD Dictation and athletic team physician or software, [employer], used which may contain error for similar s ounding words even after review. Personal communication requested for any clarification. Robb Echols MD 05/16/2019 16:54 documented in this en counter Consult Notes Mauricio Centeno MD - 05/17/2019 6:46 AM PDT Service: Vascular Surgery Initial Consult Note Date of Admission: 05/16/2019 Reason for Consultation: 05/17/2019 CHIEF COMPLAINT: Facial droop and slurring of speech HISTORY OF PRESENT ILLNESS The patient is 79 y.o. male with significant past medical history of CAD, HLD, and HTN with PSH significant for bilateral carotid endarterectomies and CABG who presents with facial dr oop and slurred speech. He underwent a CTA of of head and neck which revealed stenosis/diss ection of right vertebral artery and saccular aneurysm of left carotid artery. Due to CVA, vascular surgery was consulted about the saccular aneurysm. Slurring of speech much improve d this AM but patient still has left facial droop. REVIEW OF SYSTEMS Comprehensive ROS performed and pertinent items described in the HPI. 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 Hyperlipidemia Hyperlipidemia Hypertension Myalgia s/p lovastatin + meningitis Nasal and sinus discharge Occlusion of carotid artery PAD (peripheral artery disease) ([facility]) Polycythemia vera ([facility]) 2016 Renal stone Sciatica Sinusitis Chronic Trigeminy Ventricular pre-excitation Past Surgical History: Procedure Laterality Date COLONOSCOPY CORONARY ARTERY BYPASS GRAFT 2008 6 vessel/ RLE veing harvest CORONARY ARTERY BYPASS GRAFT EYE SURGERY L and R CEA 2010 NASAL SEPTUM SURGERY OTHER SURGICAL HISTORY CATARACT EXTRACTION TONSILLECTOMY AND ADENOIDECTOMY Allergies Allergen Reactions Penicillins Rash Statins Other (See Comments) Cramping in the legs, muscle weakness Pravastatin Other (See Comments) Medications Prior to Admission Medication Sig Dispense Refill albuterol (VENTOLIN HFA) 90 mcg/puff inhaler Inhale 2 puffs into the lungs every 6 hour s as needed. albuterol 90 mcg/puff inhaler Inhale 2 puffs into the lungs every 4 (four) hours as nee ded for Wheezing. aspirin 325 mg EC tablet Take 325 mg by mouth daily. aspirin 325 mg tablet Take 325 mg by mouth Daily. aspirin 81 MG EC tablet Take 81 mg by mouth daily. azithromycin (ZITHROMAX) 250 mg tablet Take 1 tablet by mouth Three times a week. (Savita ent not taking: Reported on 05/16/2019) 12 tablet 5 fenofibrate (TRICOR) 145 mg tablet Take 1 tablet by mouth daily. fluticasone-salmeterol (ADVAIR) 100-50 mcg/puff diskus inhaler Inhale 1 puff into the l ungs Twice Daily. fluticasone-salmeterol (ADVAIR, WIXELA INHUB) 250-50 mcg/puff diskus inhaler Inhale 1 p uff into the lungs 2 (two) times daily. lovastatin (MEVACOR) 10 MG tablet Take 10 mg by mouth nightly. metoprolol succinate (TOPROL-XL) 25 mg 24 hr tablet Take 1 tablet by mouth nightly. metoprolol tartrate (LOPRESSOR) 25 mg tablet Take by mouth. Take 1/2 tablet daily omeprazole (PRILOSEC) 10 mg capsule Take 20 mg by mouth every morning (before breakfast ). omeprazole (PRILOSEC) 20 mg capsule Take 20 mg by mouth every morning before breakfast. Scheduled Medications aspirin 324 mg Oral Once Or aspirin 300 mg Rectal Once aspirin 81 mg Oral Daily atorvaSTATin 80 mg Oral Nightly budesonide-formoterol 2 puff Inhalation RT BID clopidogrel 75 mg Oral Daily enoxaparin 40 mg Subcutaneous Q24H pantoprazole 40 mg Oral QAM AC Continuous Infusions sodium chloride 0.9% 75 mL/hr at 05/16/192026 PRN Medications acetaminophen OR acetaminophen OR acetaminophen, albuterol, docusate sodium, labeta lol, ondansetron, ondansetron, polyethylene glycol, senna Family History Problem Relation Age of Onset Coronary artery disease Mother * Mother DJD High cholesterol Mother Hypertension Mother Kidney disease Brother * Brother AAA reports that he has never smoked. He has quit using smokeless tobacco. He reports that he drinks alcohol. He reports that he does not use drugs. PHYSICAL EXAM Vital Signs: BP 164/88 | Pulse 64 | Temp 36.6 C (97.9 F) (Oral) | Resp 16 | Ht 1.753 m (5' 9") | Wt 79.7 kg (175 lb 11.2 oz) | SpO2 98% | BMI 25.95 kg/m Physical Exam Vitals:reviewed CONSTITUTIONAL: Conversant, well developed, NAD EYES: Anicteric sclerae, no lid drag, no proptosis RESP: Normal effort, regular, even, unlabored rate CV: No peripheral edema, rate regular SKIN: [place], warm, dry without rash/lesion MS: ROM not limited, no digital cyanosis, normal gait NEURO: Conversant, A&O times 3 PSYCH: appropriate affect, speech and tone, judgement and insight intact Vascular: Equal strength and sensation bilaterally. 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 Due to location o f CVA, this is most likely cardiogenic in nature. Unlikely that this stroke was caused vert ebral artery or saccular aneurysm of left carotid artery. Recommend full medical management of CVA per neurology. Also recommend work-up for cardiac source of CVA. No acute surgical treatment is planned at this time. May need eventual treatment of left carotid saccular an eurysm but this will be done as outpatient. Please feel free to call with any questions or concerns. Code Status: Full Code Primary Care Physician: MD Mauricio Bradshaw MD 05/17/2019 Sammie Espinosa MD - 05/16/2019 5:43 PM PDTAssociated Order(s): PROVIDER TO PROVIDER CONSULTFormatting of t his note might be different from the original. Subjective: Simon Mccarthy is a 79 y.o. right handed male on whom I have been asked to consult for ev aluation and treatment of a neurologic deficit. HLD, CAD s/p CABG, s/p b/l CEA, and polycythemia treated with periodic phlebotomy. Onset of symptoms was sudden on 05/15/19 at 3:00 pm.The patient did not awaken with symptoms . Symptoms included left facial weakness and slurred speech. He came to hospital today (symptoms persist). Symptoms are currently stable. Stroke risk factors: hyperlipidemia and CAD. (HTN?) Prior stroke history: None. The patient is on chronic 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 (ASA 81 mg daily). The patient is not on statin. Associated symptoms: The patient reports no ALVARADO, blurred or double vision, dysphagia, weakne ss or numbness other than what mentioned in HPI. No CP, SOB, Abd pain, N or V. Review of Systems Please see my HPI. All other system were reviewed and are negative. PMH: Patient Active Problem List Diagnosis Date Noted POA Facial droop 05/16/2019 Unknown Bilateral carotid bruits 01/31/2019 Unknown History of CEA (carotid endarterectomy) 01/31/2019 Yes Moderate mitral regurgitation by prior echocardiogram 01/31/2019 Unknown Asymmetric septal hypertrophy 01/31/2019 Unknown Hx of CABG 05/30/2018 Yes Murmur, cardiac 05/30/2018 Unknown Peripheral arterial disease 05/30/2018 Unknown Polycythemia vera 05/30/2018 Unknown Risk factors for obstructive sleep apnea 05/30/2018 Unknown Bronchiectasis Unknown Chronic cough 04/03/2013 Yes Benign essential hypertension 03/16/2013 Yes Cough variant asthma 03/16/2013 Unknown Hay fever 03/16/2013 Unknown Coronary artery disease involving [place] coronary artery of [place] heart 03/16/2013 Yes Ventricular pre-excitation 03/16/2013 Unknown Nasal and sinus discharge 03/16/2013 Unknown Sciatica 03/16/2013 Unknown Mixed hyperlipidemia 03/16/2013 Unknown Trigeminy 03/16/2013 Unknown Myalgia 03/16/2013 Unknown Atherosclerosis 03/16/2013 Unknown Glucose intolerance (impaired glucose tolerance) 03/16/2013 Unknown BPH without urinary obstruction 03/16/2013 Unknown 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 Hyperlipidemia Hyperlipidemia Hypertension Myalgia s/p lovastatin + meningitis Nasal and sinus discharge Occlusion of carotid artery PAD (peripheral artery disease) ([facility]) Polycythemia vera ([facility]) 2016 Renal stone Sciatica Sinusitis Chronic Trigeminy Ventricular pre-excitation Past Surgical History: Procedure Laterality Date COLONOSCOPY CORONARY ARTERY BYPASS GRAFT 2008 6 vessel/ RLE veing harvest CORONARY ARTERY BYPASS GRAFT EYE SURGERY L and R CEA 2009 NASAL SEPTUM SURGERY OTHER SURGICAL HISTORY CATARACT EXTRACTION TONSILLECTOMY AND ADENOIDECTOMY Allergy: Allergies Allergen Reactions Penicillins Rash Statins Other (See Comments) Cramping in the legs, muscle weakness Pravastatin Other (See Comments) Medications: Home medications: Prior to Admission medications Medication Sig Start Date End Date Taking? Authorizing Provider albuterol (VENTOLIN HFA) 90 mcg/puff inhaler Inhale 2 puffs into the lungs every 6 hours as needed. Historical Provider, albuterol 90 mcg/puff inhaler Inhale 2 puffs into the lungs every 4 (four) hours as needed for Wheezing. 11/28/18 Historical Provider, aspirin 325 mg EC tablet Take 325 mg by mouth daily. Historical Provider, aspirin 325 mg tablet Take 325 mg by mouth Daily. Historical Provider, aspirin 81 MG EC tablet Take 81 mg by mouth daily. Historical Provider, azithromycin (ZITHROMAX) 250 mg tablet Take 1 tablet by mouth Three times a week. 07/27/13 Lio Mendez MD fenofibrate (TRICOR) 145 mg tablet Take 1 tablet by mouth daily. 01/31/19 01/31/20 Historical Provider, fluticasone-salmeterol (ADVAIR) 100-50 mcg/puff diskus inhaler Inhale 1 puff into the lungs Twice Daily. Historical Provider, fluticasone-salmeterol (ADVAIR, WIXELA INHUB) 250-50 mcg/puff diskus inhaler Inhale 1 puff into the lungs 2 (two) times daily. 11/28/18 Historical Provider, lovastatin (MEVACOR) 10 MG tablet Take 10 mg by mouth nightly. Historical Provider, metoprolol succinate (TOPROL-XL) 25 mg 24 hr tablet Take 1 tablet by mouth nightly. 01/31/19 01/31/20 Historical Provider, metoprolol tartrate (LOPRESSOR) 25 mg tablet Take by mouth. Take 1/2 tablet daily Histo rical Provider, omeprazole (PRILOSEC) 10 mg capsule Take 20 mg by mouth every morning (before breakfast). Historical Provider, omeprazole (PRILOSEC) 20 mg capsule Take 20 mg by mouth every morning before breakfast. Historical Provider, Scheduled Meds: clopidogrel 75 mg Oral Daily FHx: Family History Problem Relation Age of Onset Coronary artery disease Mother * Mother DJD High cholesterol Mother Hypertension Mother Kidney disease Brother * Brother AAA SHx: Social History Socioeconomic History Marital status: Spouse name: Not on file Number of children: Not on file Years of education: Not on file Highest education level: Not on file Social Needs Financial resource strain: Not on file Food insecurity - worry: Not on file Food insecurity - inability: Not on file Transportation needs - medical: Not on file Transportation needs - non-medical: Not on file Occupational History Not on file Tobacco Use Smoking status: Never Smoker Smokeless tobacco: Former User Substance and Sexual Activity Alcohol use: Yes Comment: Alcoholic Drinks/day: occasionally Drug use: No Comment: Drug use: No Sexual activity: Not on file Other Topics Concern Not on file Social History Narrative Not on file Objective: Vitals: BP 169/78 | Pulse 65 | Temp 36.9 C (98.5 F) | Resp 17 | Ht 1.753 m (5' 9") | Wt 79.4 kg (175 lb) | SpO2 97% | BMI 25.84 kg/m General: Well developed, well nourished, in no acute distress Neck: Supple, unable to appreciate bruits. Heart: Regular rate and rhythm, S1, S2 Pulses: Normal in upper extremities Detailed Neurologic Exam: Speech: Is mildly slurred but fluent and spontaneous with normal comprehension Cognition: The patient is oriented to person, place, and time. Cranial Nerves: At this time, the pupils are equal, round, and reactive to light. Visual fi elds are full to finger confrontation. Extraocular movements are intact. Trigeminal sensatio n is intact and the muscles of mastication are normal. The face is asymmetric (left sided we akness, central). Hearing is symmetric bilaterally to fingers rubbing. The palate elevates i n the midline. Voice is normal. Shoulder shrug is normal. The tongue has normal motion witho ut fasciculations. Coordination: Normal finger to nose. Normal rapid alternating movements. Observation: No asymmetry, and no involuntary movements noted. Strength: Strength is 5/5 in the upper and lower limbs. Light Touch: Normal light touch sensation in upper and lower extremities. DTR's: Deep tendon reflexes in the upper and lower extremities are diminished bilaterally. NIHSS: 3 for facial weakness and slurred speech. Labs Lab Results Component Value Date WBC 6.50 05/16/2019 HGB 14.9 05/16/2019 HCT 45.8 05/16/2019 MCV 85.8 05/16/2019 PLT 222 05/16/2019 Lab Results Component Value Date BUN 15 05/16/2019 NA 142 05/16/2019 K 4.2 05/16/2019 CL 110 (H) 05/16/2019 CO2 27 05/16/2019 Recent Results (from the past 24 hour(s)) CBC with Differential Collection Time: 05/16/19 12:50 Result Value Ref Range WBC 6.50 3.80 - 11.00 K/uL RBC 5.34 4.20 - 5.70 M/uL Hemoglobin 14.9 13.2 - 17.0 g/dL Hematocrit 45.8 39.0 - 50.0 % MCV 85.8 80.0 - 100.0 fl MCH 27.8 27.0 - 34.0 pg MCHC 32.4 32.0 - 35.5 g/dL RDW-SD 48.1 37 - 53 fl Platelet Count 222 150 - 400 K/uL MPV 9.3 fl Diff Type AUTOMATED % Neutrophils 77.33 % % Lymphocytes 12.06 % Monocyte % 9.44 % Eosinophils % 0.63 % Basophils % 0.54 % Neutrophils, Absolute 5.03 1.90 - 7.40 K/uL Absolute Lymphocytes 0.78 (L) 1.00 - 3.90 K/uL Absolute Monocytes 0.61 0.00 - 0.80 K/uL Eosinophils, Absolute 0.04 0.00 - 0.50 K/uL Basophils, Absolute 0.04 0.00 - 0.10 K/uL Comprehensive Metabolic Panel Collection Time: 05/16/19 12:50 Result Value Ref Range Na 142 135 - 145 mmol/L K 4.2 3.5 - 4.9 mmol/L Cl 110 (H) 99 - 109 mmol/L CO2 27 23 - 32 mmol/L Anion Gap 9 5 - 20 mmol/L Glucose 96 65 - 99 mg/dL BUN 15 8 - 25 mg/dL Creatinine 1.14 0.70 - 1.30 mg/dL BUN/Creatinine Ratio 13 Calcium 9.0 8.5 - 10.5 mg/dL Protein, Total 6.8 6.3 - 8.2 g/dL Albumin 4.5 3.3 - 4.8 g/dL Globulin 2.3 1.3 - 4.9 g/dL A/G Ratio 2.0 1.0 - 2.4 BILIRUBIN, TOTAL 0.8 0.1 - 1.5 mg/dL ALK PHOS 89 35 - 115 U/L AST 22 10 - 45 U/L ALT 13 10 - 65 U/L Estimated GFR >60 >60 mL/min/1.73m2 Troponin I Collection Time: 05/16/19 12:50 Result Value Ref Range Troponin T 0.022 0.00 - 0.04 ng/mL LP: P HGBA1c: P IMAGING Ct Angiogram Head Neck Acute Stroke: Result Date: 05/16/2019: CT ANGIOGRAM OF THE HEAD WITHOUT AND WITH CONTRAST; CT ANGIOGRAM OF THE NECK WITH CONTRAST CLINICAL INFORMATION: Left-sided facial droop, slurred speech COMPARISON: SINUS LIMITED WO C ONTRAST (07/13/2013); PROCEDURE: CT Head: Axial images were obtained through the brain IV wi thout contrast. CT Angiogram Head: Thin section axial images were obtained through the brain during the arterial phase after IV administration. CT Angiogram Neck: Thin section axial im ages were obtained through the neck during the arterial phase after IV administration. NASCE T criteria applied for internal carotid stenosis determination. 3D and multiplanar reconstru ctions were obtained from the acquisition data. Contrast: 100mL Omnipaque 350 IV. At least o ne of the following CT dose optimization techniques were used: Automated exposure control; A djustment of mA and/or kV according to patient size; Use of iterative reconstruction techniq ue. FINDINGS: CT Head: Brain: No intracranial hemorrhage, midline shift or pathologic mass e ffect. No cerebral edema, mass lesion, or evidence of acute infarct. ASPECTS score is 10. N o areas of abnormal enhancement are seen within the brain parenchyma, leptomeninges or dura. Ventricles and extra-axial fluid spaces: Normal. Paranasal sinuses and mastoid air cells: T he paranasal sinuses demonstrate prior endoscopic sinus surgery with bilateral maxillary ant rectomies, resections of the middle nasal turbinates, superior nasal turbinates and ethmoid air cells. The mastoid air cells are normally aerated. Calvarium and extracranial soft tiss ues: Normal. Orbits: The orbits and their contents demonstrate prior bilateral cataract surg ziggy but are otherwise normal. CTA Head: Intracranial Segments of the Internal Carotid Arteri es: Normal contrast enhancement without evidence of occlusion, intraluminal thrombus, signif icant stenosis, or aneurysm. Middle Cerebral Arteries: Normal contrast enhancement without e vidence of occlusion, intraluminal thrombus, significant stenosis, or aneurysm. Anterior Cer ebral Arteries: Normal contrast enhancement without evidence of occlusion, intraluminal thro mbus, significant stenosis, or aneurysm. The anterior communicating artery is patent. Poste rior Circulation: The right vertebral artery appears to be occluded at the C1 level as it en ters the foramen magnum but then reconstitutes via retrograde flow from the basilar artery t o supply the posterior inferior cerebellar artery. 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 The left vertebral artery remains widely patent and is the primary supp ly to the basilar artery. The basilar artery is normal in course and caliber. The basilar artery supplies the anterior inferior cerebellar arteries, superior cerebellar arteries and posterior cerebral arteries a prominent right posterior communicating artery is noted. The left posterior communicating artery is not seen and may be congenitally absent. CTA Neck: Ao rtic Arch: Conventional anatomy. Brachiocephalic and subclavian arteries demonstrate normal contrast enhancement without evidence of occlusion, intraluminal thrombus, or significant st enosis. Right Carotid Artery: Prior right carotid endarterectomy noted. Carotid bulb and int ernal carotid artery are widely patent. Mid cervical right ICA normal lumen measures 3.8 mm, image 110 series 8, 0% NASCET stenosis. The intracranial segment of the distal internal c arotid artery is patent. Left Carotid Artery: Prior left carotid endarterectomy noted. Soft plaque creates 50% narrowing in the distal common carotid artery, see image 165 series 8. A saccular aneurysm arises from the lateral margin of the left carotid bulb with a mouth alona suring 6.7 x 9.4 mm and a dome height of 3.7 mm, see image 152 series 8 and image 71 series 15. There is no thrombus within this aneurysm. The left internal carotid artery is otherwi se widely patent. The mid cervical left ICA normal lumen measures 3.8 mm, image 110 series 8, 0% NASCET stenosis. The intracranial portion of the left internal carotid artery is diamond nt. Vertebral Arteries: The left vertebral artery is widely patent and is dominant. The rig ht vertebral artery is extremely narrow in caliber throughout its entire course despite a re latively normal size of the foramen transversarium. 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 The artery appears to occlude at the C1 level prior to entering the foramen magnum. IMPRESSION: 1. The right vertebral artery is extremely narrow in caliber throughout its entire course despite a relatively normal size of the foramen transversarium . 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 The artery appears to occlude at the C1 level prior to entering the foramen magnum. It reconstitutes via retrogra de flow from the basilar artery to supply the right posterior inferior cerebellar artery. 2. Bilateral carotid endarterectomy is noted. A saccular aneurysm arises from the lateral mar gin of the left carotid bulb with a mouth measuring 6.7 x 9.4 mm and a dome height of 3.7 mm . 3. No acute intracranial findings. 4. Aspects score is 10. Signed by: Jay Jay Tan Edwar d Sign Date/Time: 05/16/2019 2:54 PM Brain MRI: Abnormal diffusion restriction is seen in the right centrum semiovale compatible with an ar ea of acute infarction. EKG: Done but not available to me. Normal sinus rhythm per report. Assessment: This patient was admitted to the hospital with: 1- Left facial weakness and slurred speech due to right MCA stroke. 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 4- HLD, CAD and polycythemia. I reviewed the available images with the patient and agree with the radiologist interpretat ion. Right periventricular stroke (MCA) and WMD. Plan: IV tPA was considered but not given (contraindicated, > 4.5 hours and no LVO). 1- Agree with admission to telemetry bed with reasonable hydration. 2- NPO until swallow screen completed and head of bed at 30 degree to reduce risk of aspira tion. 3- Vital signs and neurocheck every 4 hours. 4- Temperature every 4 hours and treat any temperature greater than 100 (37.8). 5- Glucose finger stick every 6 hours if patient is NPO or AC and HS if patient has a diet ordered. Treat aggressively when blood glucose concentrations is >140 to 185 mg/dL. 6- Treat with O2 per NC if SpO2 is less than 92%. 7- Do not treat BP in the acute phase (first 24-72 hours of symptoms onset) unless BP is gr eater than 210/110 or if there is other medical reason to treat. After the acute phase and i f the patient is stable neurologically, we may start controlling BP by 10-15% per 24 hours t oward < 140/90. However, avoid hypotension. 8- For secondary prophylaxis, recommend 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 (ASA or Plavix) and high intensity st atin if able to tolerate to keep LDL 40 - 70. Other option could be Zetia if appropriate. Ne ed good control of risk factors. 9- Work up should include TTE with bubble study, HGBA1C, and fasting lipid profile. 10- Consult PT, OT, Speech therapy and IPR if felt to be indicated. 11- General care including GI and DVT prophylaxis and risk factors modification (HTN, HLD, and obesity) per primary team. Healthy diet, weight control and physical / mental exercises. Thank you for allowing us to participate in your patient care. Please call with questions. documented in this en counter ED Notes Colin Dumont MD - 05/16/2019 12:52 PM PDTFormatting of this note might be different from panda aaron. [facility] Department of Emergency Medicine 16:12 Pt Room: ED10/ED10 No flowsheet data found. History of Present Illness Patient Identification Simon Mccarthy is a 79 y.o. male. Patient information was obtained from patient and relative(s) History/Exam limitations: none. Patient presented to the Emergency Department by: pov History of Presenting Illness The patient is a 79 y.o. male presenting with Chief Complaint Patient presents with Slurred Speech started yesterday afternoon Facial Droop Location-neuro Onset-2 PM yesterday Duration-no pain Severity and Character-no pain Worse with-nothing Better with-nothing Radiation-none Denies- headache, vision change, sore throat, cough, chest pain, shortness of breath, abdom inal pain, nausea, vomiting, diarrhea, constipation, blood in the urine or stool, rash, feve r, mood change Admits-slurred speech, left-sided facial droop Context-patient has a history of 2 carotid endarterectomies and 6 x cardiac bypass who pres ents with facial droop. He states that yesterday he got droopy on the left side of his face and was slurring his speech. He has not had a headache or any chest pain. Patient has nev had a stroke before. 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 Hyperlipidemia Hyperlipidemia Hypertension Myalgia s/p lovastatin + meningitis Nasal and sinus discharge Occlusion of carotid artery PAD (peripheral artery disease) ([facility]) Polycythemia vera ([facility]) 2016 Renal stone Sciatica Sinusitis Chronic Trigeminy Ventricular pre-excitation Past Surgical History: Procedure Laterality Date COLONOSCOPY CORONARY ARTERY BYPASS GRAFT 2008 6 vessel/ RLE veing harvest CORONARY ARTERY BYPASS GRAFT EYE SURGERY L and R CEA 2010 NASAL SEPTUM SURGERY OTHER SURGICAL HISTORY CATARACT EXTRACTION TONSILLECTOMY AND ADENOIDECTOMY Prior to Admission medications Medication Sig Start Date End Date Taking? Authorizing Provider albuterol (VENTOLIN HFA) 90 mcg/puff inhaler Inhale 2 puffs into the lungs every 6 hours as needed. Historical Provider, albuterol 90 mcg/puff inhaler Inhale 2 puffs into the lungs every 4 (four) hours as needed for Wheezing. 11/28/18 Historical Provider, aspirin 325 mg EC tablet Take 325 mg by mouth daily. Historical Provider, aspirin 325 mg tablet Take 325 mg by mouth Daily. Historical Provider, aspirin 81 MG EC tablet Take 81 mg by mouth daily. Historical Provider, azithromycin (ZITHROMAX) 250 mg tablet Take 1 tablet by mouth Three times a week. 07/27/13 Lio Mendez MD fenofibrate (TRICOR) 145 mg tablet Take 1 tablet by mouth daily. 01/31/19 01/31/20 Historical Provider, fluticasone-salmeterol (ADVAIR) 100-50 mcg/puff diskus inhaler Inhale 1 puff into the lungs Twice Daily. Historical Provider, fluticasone-salmeterol (ADVAIR, WIXELA INHUB) 250-50 mcg/puff diskus inhaler Inhale 1 puff into the lungs 2 (two) times daily. 11/28/18 Historical ProviderMD lovastatin (MEVACOR) 10 MG tablet Take 10 mg by mouth nightly. Historical Provider, metoprolol succinate (TOPROL-XL) 25 mg 24 hr tablet Take 1 tablet by mouth nightly. 01/31/19 01/31/20 Historical Provider, metoprolol tartrate (LOPRESSOR) 25 mg tablet Take by mouth. Take 1/2 tablet daily Histo rical Provider, omeprazole (PRILOSEC) 10 mg capsule Take 20 mg by mouth every morning (before breakfast). Historical Provider, omeprazole (PRILOSEC) 20 mg capsule Take 20 mg by mouth every morning before breakfast. Historical Provider, Allergies Allergen Reactions Penicillins Rash Statins Other (See Comments) Cramping in the legs, muscle weakness Pravastatin Other (See Comments) Social History Socioeconomic History Marital status: Spouse name: Not on file Number of children: Not on file Years of education: Not on file Highest education level: Not on file Social Needs Financial resource strain: Not on file Food insecurity - worry: Not on file Food insecurity - inability: Not on file Transportation needs - medical: Not on file Transportation needs - non-medical: Not on file Occupational History Not on file Tobacco Use Smoking status: Never Smoker Smokeless tobacco: Former User Substance and Sexual Activity Alcohol use: Yes Comment: Alcoholic Drinks/day: occasionally Drug use: No Comment: Drug use: No Sexual activity: Not on file Other Topics Concern Not on file Social History Narrative Not on file Family History Problem Relation Age of Onset Coronary artery disease Mother * Mother DJD High cholesterol Mother Hypertension Mother Kidney disease Brother * Brother AAA I have personally reviewed the social history, pertinent history has been addressed. Review of Systems Complete review of systems obtained and negative except as stated above in HPI Physical Exam Temp: 36.9 C (98.5 F) Pulse: 67 Resp: 18 BP: (!) 182/109 SpO2: 93 % Vital signs interpretation: Hypertensive Pulse Oximetry interpretation: Normal General: male alert, in no apparent distress Eyes: Normal inspection, pupils equal and round, non-icteric. EOMI. Strong eyelids ENT: External Ears normal Nose normal Moist mucous membranes Oropharynx clear Left-sided facial droop Neck: Normal inspection Supple Cardiovasc: Rate and rhythm normal No murmurs Respiratory: Breath sounds normal bilaterally No rales, wheezing or rhonchi Abdomen: Soft, non-tender, non-distended No guarding or rebound No peritoneal sign Genitourinary: Deferred Rectal exam: Deferred Back: Normal inspection Extremities: No swelling or redness Skin: Color normal Warm and dry No rash Neuro: Alert, no AMS. Left-sided facial droop, occasional word slurring, normal sticking out of tongue, normal eyebrow raise, normal shoulder shrug, normal extraocular movements, no rmal pupils, able to identify NIH pictures. 5/5 strength in all extremities, Normal bilat pa tellar reflexes, sensation intact to light touch distally, normal finger to nose. NIH SS 2 Psych: Normal Mood Normal Judgement Medical Decision Making and Emergency Department Course ED Department Course 79 y.o. male presents to the ED with a chief complaints of left-sided facial droop and slu rring speech. Patient has complex vascular history and concern for acute stroke however it is been 23 hours since symptom onset. Patient has NIH of 2. Will obtain CT imaging likely followed by MRI. Consider Nassar's palsy but less likely. Patient feels like he had bronchit is this summer and sinus infection but unlikely cavernous sinus thrombosis. This is not men ingitis. Will obtain labs and imaging and reevaluate the patient. Review of vitals Temp: 36.9 C (98.5 F) Pulse: 65 Resp: 17 BP: 169/78 SpO2: 97 % 13:05 EKG done and somewhat atypical. May be due to the fact that the patient has 6 way by pass ====EKG Interpretation==== Time: 1305 Rate: 61 Rhythm: Normal sinus [place]: Normal Intervals: [place] 226, QRS 110 ST: [address] elevation in V2, 3 mm elevation in V3 T Waves: Depressed in lead III Other: Incomplete right bundle branch Compared to ekg done -none to compare to Overall Impression: Non-specific EKG with ST changes in anterior leads Interpreted by Colin Dumont MD Rhythm strip analysis: Normal sinus rhythm with first-degree AV block and rate of 61 Unable to find old EKGs. Patient confirms is not having any chest pain. Call made to Dr. Blanchard of interventional cardiology. He would like to look at the EKG [address] Blanchard has looked at the ekg. He feels that these ST changes, after the Q wa ves are likely old. There are no reciprocal changes. He feels that we should trend the tro ponins and try to find an old EKG. We will not intervene without pain and based on clinical picture. I personally reviewed the labs and imaging results obtained below. Pertinent positive and negative findings have been addressed appropriately and I have discussed any clinically impo rtant abnormal labs with the patient. Patient with carotid artery aneurysm as well as vertebral artery dissection potentially. W ill call vascular surgery Call made to Dr. Mauricio Centeno. He states to hold off on heparin until he can see the patient an d just use aspirin. Does not feel that either of these 2 findings would cause the patient's facial droop and slurred speech. We will obtain an MRI to see if he is throwing clots. Fe els that the posterior circulation may be chronic. Will come see the patient as soon as he is able Patient reevaluation. He is stable. No new neuro deficits. Will give the aspirin. He st ates he has been feeling somewhat fatigued over the last few days. He is willing to obtain MRI and stay for admission. Spoke to Dr. Echols who graciously agreed to admit the patient for further work-up and manag ement Medications sodium chloride 0.9% (NS) bolus 1,000 mL (0 mLs Intravenous Stopped 05/16/19 1442) iohexol (OMNIPAQUE 350) 350 mg/mL injection 100 mL (100 mLs Intravenous Given 05/16/19 1350) aspirin tablet 325 mg (325 mg Oral Given 05/16/19 1547) Records Reviewed Old medical records. Nursing notes. Laboratory Evaluation Labs Reviewed CBC WITH DIFFERENTIAL - Abnormal; Notable for the following components: Result Value Absolute Lymphocytes 0.78 (*) All other components within normal limits COMPREHENSIVE METABOLIC PANEL - Abnormal; Notable for the following components: Cl 110 (*) All other components within normal limits TROPONIN I I personally reviewed the lab results and they have been posted to the chart. Pertinent po sitive and negative findings have been addressed appropriately and I have discussed any abno rmal labs with the patient. Radiology and EKG Evaluation CT Angiogram Head Neck Acute Stroke Final Result MRI Brain wo Contrast (Results Pending) 1. Cerebrovascular accident (CVA), unspecified mechanism (HCC) 2. Facial droop 3. Vertebral artery dissection (HCC) 4. Carotid aneurysm, left (HCC) Disposition: ED Disposition ED Disposition Condition Comment Admit Clinical impression: Cerebrovascular accident (CVA), unspecified mechanism (HCC) [[id number]] Clinical impression: Facial droop [[id number]] Clinical impression: Vertebral artery dissection (HCC) [[id number]] Clinical impression: Carotid aneurysm, left (HCC) [[id number]] Admitting provider: [facility] [[id number]] Expected patient class: Inpatient [101] Level of service: Neuro Telemetry: Telemetry Discharge Medications: Procedures Colin Dumont MD 05/16/19 1612 an Ocasio RN - 05/16/2019 12:43 PM PDTBed: [id number] Expected date: Expected time: Means of arrival: Comments: 40, Simon Mccarthy, slurred speech starting yesterday. Coming from clinic, refused to go to [facility] ED. P M PDTdocumented in this encounter Miscellaneous Notes Plan of Diya Perla RN - 05/19/2019 11:36 AM PDTReviewed d/c instructions with patient, all questions answered. Patient stable for d/c. Diya Lewis RN lan of Diya Hinojosa RN - 05/19/2019 9:47 AM PDTPatient appropriate for dischargeElectronic ally signed by Diya Lewis RN at 05/19/2019 9:48 AM PDTPlan of Donnie Perla RN - 05/19/2019 9:44 AM PDTPatient swallowing and speaking monitored for improvem ent and to maintain swallow ability.Electronically signed by Diya Lewis RN at 04/27 9:45 AM PDTPlan of Theresa Silva RN - 05/19/2019 3:48 AM PDTVSS, BP's 12 0-140's systolic. Pt A&Ox4, neuro checks remain unchanged from shift assessment. No other changes from shift assessment. End of shift review and 24 hour chart check complet marta Sawant RN lan of Theresa Silva RN - 05/18/2019 9:35 PM PDT Problem: Adult Inpatient Plan of Care Goal: Readiness for Transition of Care Outcome: Ongoing, progressing Problem: Adjustment to Illness (Stroke, Ischemic/Transient Ischemic Attack) Goal: Optimal Coping Outcome: Ongoing, progressing Problem: Cerebral Tissue Perfusion Risk (Stroke, Ischemic/Transient Ischemic Attack) Goal: Optimal Cerebral Tissue Perfusion Outcome: Ongoing, progressing Problem: Communication Impairment (Stroke, Ischemic/Transient Ischemic Attack) Goal: Improved Communication Skills Outcome: Ongoing, progressing Problem: Eating/Swallowing Impairment (Stroke, Ischemic/Transient Ischemic Attack) Goal: Oral Intake without Aspiration Outcome: Ongoing, progressing Problem: Hemodynamic Instability (Stroke, Ischemic/Transient Ischemic Attack) Goal: Vital Signs Remain in Desired Range Outcome: Ongoing, progressing Problem: Pain (Stroke, Ischemic/Transient Ischemic Attack) Goal: Acceptable Pain Control Outcome: Ongoing, progressing lan of Chente Hooker RN - 05/18/2019 6:21 PM PDT Problem: Adult Inpatient Plan of Care Goal: Plan of Care Review 05/18/2019 1450 by Chente Gibbons RN Outcome: Ongoing, progressing Problem: Adult Inpatient Plan of Care Goal: Patient-Specific Goal 05/18/2019 1821 by Chente Gibbons RN Outcome: Ongoing, progressing Reviewed plan of care with patient. Pt independently ambulated the halls several times. El ectronically signed by Chente Gibbons RN at 05/18/2019 6:23 PM PDTPlan of Chente Smith RN - 05/18/2019 2:16 PM PDTBP in the 140-170. Pt is A&O x4 with no other neuro changes. No other changes from shift assessment. End of shift review. Chart check complete. CHENTE GIBBONS RN lan of Geetha Ibanez PT - 05/18/2019 11:25 AM PDTPhysical Therapy Treatment, Discharge(pt mobilizing indep endently; discontine acute PT) Note Recommended discharge disposition: ) Post discharge physical therapy recommendation: pt is motivated participant, outpatient th erapy(to address higher-level balance deficits) Equipment Recommendations: none Barriers to discharge ? Cognitive deficits ? Physical deficits ? Level of assist for self-care ? Level of assist for mobility ? Equipment needs ? Lack of family support ? Home design ? Precautions ? Neurologic impairment ? Vision ? Pa in ? Fall risk ? Finances ? Other Plan Planned Interventions: balance training, gait training, stair training Recommended Frequency: other (see comments)(follow up visit only) for 7 days PT reassessment due 05/24/19 Next visit information: 05/18, stroke, d/c acute PT Summary: PT Visit Summary: Pt seen for f/u visit focused on reassessment of mobility, pt a ble to perform all bed mobility, transfers, ambulation, and stairs safely without AD or phys ical assist. Pt completed balance training activities with handout provided for [facility]P at [facility] with CGA. Pt with some deficits for higher-level balance tasks evidenced by increa sed postural sway with EC and narrowed BRIANA. Unclear if this is pt's functional baseline, solomon mukherjee, as he reports decreased balance prior to his stroke. Pt may benefit from further ski lled PT in OP setting to address. Pt tolerated session well without fatigue, BP noted to be high but stable pre/post. Pt back to bed with needs met and no new complaints when session concluded. Vitals: BP supine: 175/92 (peak 191/100, 178/90) HR supine: 71 (peak 98, post 76) SpO2 WNL on RA throughout session Precautions Precautions Precautions/Limitations: falls Cognition Cognitive Assessment Mood/Behavior: behavior appropriate to situation Orientation: oriented x 4 FUNCTIONAL MOBILITY Bed Mobility Supine to Sit, Level of [place]: independent Sit to Supine, Level of [place]: independent Transfers Sit-Stand, Level of [place]: independent Stand-Sit, Level of [place]: independent Gdk-[id number], Assistive Device: none Gait Level of [place]: independent Assistive Device: none Distance (feet): 500 Stairs Number of Stairs: 11 Handrail Location: right side (ascending) Level of [place]: supervised Assistive Device: none Technique Used: step over step (ascending), step over step (descending) Balance Balance Sitting Balance: Static: normal balance Sitting Balance: Dynamic: normal balance Additional Documentation: Romberg, tandem stand, sidestep Tandem Stance R LE (sec): 30 sec Tandem Stance L LE (sec): 30 sec Romberg Eyes Open (seconds): 30 Romberg Eyes Closed (seconds): 30 Sidesteppin' Therapeutic Exercise at hallway railing with CGA Balance exercises: sidestep, narrow base of support, tandem stance, multiple steps/stairs( EO & EC for static tasks) Repetitions: sidestep x10', 10x heel/toe raises, 30 sec all static tasks Goals Reflects last filed data and may be from multiple contributors. Stair Goal STG Status: discontinued STG Brookings Level: independent STG Assistive Device: none STG Number of Stairs: 5 STG Comments: met adequately for discharge lan of Enrique - Queenie Collado RN - 05/18/2019 10:19 AM PDTCare Management Initial Assessment Readmission Risk: HIGH Status Prior to Admission or Illness Arrival From: admitted as an inpatient Lives With: spouse Living Arrangements: house Caregiver For: spouse Patient s Caregiver: Functional Status: Independent Home Accessibility: stairs to enter home Transportation Available: yes Able to return to prior living: yes Care Management Concerns Readmission Within Last 30 Days: no previous admission in last 30 days PCP: Brittany Meehan Contact Information Family Contact Information: Name: Alicia(spouse) [place] Needs Assessment Current Outpt/Agency/Support Groups: none Concerns to be Addressed: no discharge needs identified Services Anticipated at Discharge: Equipment Used at Home: 2 wheeled walker (FWW), 4 wheeled walker (4WW)(walkers primarily us ed by spouse) Pharmacy/Medication Needs: other (see comments)([facility]) Initial Plan Anticipated Discharge Disposition: home Expected DC Date: yes Electronically signed: Queenie Landaverde RN 05/18/2019 10:19 lan of Enrique - Theresa Sawant RN - 05/18/2019 12:26 AM PDT Problem: Adult Inpatient Plan of Care Goal: Plan of Care Review Outcome: Ongoing, progressing Plan of care went over with patient.Electronically signed by Theresa Sawant RN at 2018 12:26 AM PDTPlan of Enrique - Chente Gibbons RN - 05/17/2019 7:01 PM PDT Problem: Adult Inpatient Plan of Care Goal: Plan of Care Review Outcome: Ongoing, progressing Problem: Adult Inpatient Plan of Care Goal: Absence of Hospital-Acquired Illness or Injury Outcome: Ongoing, progressing Problem: Adult Inpatient Plan of Care Goal: Optimal Comfort and Wellbeing Outcome: Ongoing, progressing Pt ambulating in halls, able to express needs, neuro assessment complete and no changes. Geetha GIBBONS RN lan of Geetha Smith RN - 05/17/2019 6:51 PM PDTPt VSS on RA. Pt is A&O x4. BP 150's-190's. No changes in his Neuro besides his facial drooping. Pt is independent in room. Echo completed, see resul ts. No acute changes from previous assessment, End of shift chart check reviewed. CHENTE MONTALVO RN lan of Enrique - Gracia Bailey MS CCC-CELLOPHANER - 05/17/2019 9:55 AM PDTSpeech Therapy Bedside Swallow Initial Evalu ation Note Swallow Recommendations Recommended Solid Texture: regular Recommended Liquid Texture: thin liquids Recommended Medication Delivery: whole pills with thin liquids Recommended Feeding/Eating Techniques: one small sip or bite at a time, maintain upright po sture during/after eating for 30 mins, slow rate Summary: Pt seen for initial swallow eval at bedside. Per RN pt passed bedside swallow roopa l and has demonstrated no difficulties swallowing. Pt demonstrated no overt s/s of aspiratio n with thin liquid and solid trials. ST to discharge at this time is pt does not require ski lled ST services. Please reorder if further concerns arise. Speech Language Pathology Discharge Recommendations are: Post discharge speech language pathology recommendation: no further Speech Therapy Planned Interventions: other (see comments)(Discharge) Recommended Frequency: one time visit for eval only Thin Liquids Mode of Presentation: self fed, cup Volume(s) Presented (mL): 3 mL Oral Phase Results: intact oral phase without signs of dysfunction Pharyngeal Phase Results: safe swallow, no signs/symptoms of aspiration or penetration Puree Mode of Presentation: self fed, spoon Volume(s) Presented (mL): patient controlled volumes Oral Phase Results: intact oral phase without signs of dysfunction Pharyngeal Phase Results: safe swallow, no signs/symptoms of aspiration or penetration Solid Mode of Presentation: self fed Volume(s) Presented (mL): patient controlled volumes Oral Phase Results: intact oral phase without signs of dysfunction Pharyngeal Phase Results: safe swallow, no signs/symptoms of aspiration or penetration Dysphagia Goal: LTG Status: met LTG: Pt will tolerate regular diet and thin liquids independently. Education Completed Education Topics: Dysphagia: Explain results of session, speech-language pathology role, plan of care, most s afe diet and swallow precautions Completed with: ? Patient ? Spouse ? Significant other ? Family ? Caregiver ? Oth er Completed by: ? Verbal education ? Demonstration ? Handout ? Other: Response to Education: ? Stated Understanding ? Reinforcement necessary ? Returned d emonstration ? Demonstrated understanding ? No evidence of learning ? Refused lan of Care - Francisca Phoenix, PT - 05/17/2019 8:54 AM PDTPhysical Therapy Evaluation Note Recommended discharge disposition: home Post discharge physical therapy recommendation: no further PT Equipment Recommendations: Anticipated Equipment Needs At Discharge PT: none Barriers to discharge ? Cognitive deficits ? Physical deficits ? Level of assist for self-care ? Level of assist for mobility ? Equipment needs ? Lack of family support ? Home design ? Precautions ? Neurologic impairment ? Vision ? P ain ? Fall risk ? Finances ? 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 Blood pressure was monitored and found to be high (188/56 mmHg) but permissive hypertension allowed. Strength, coordination, sensation an d vision appeared in tact/no impairments. Demonstrates good independence with mobility, incl uding stairs - mild path deviation noted at times, but stable. Low fall risk per Tinetti. (V itals pre- O2 95% on RA, HR 66 bpm, BP 189/84) Assessment of Patient Status Impairments Found (describe specific impairments): gait, locomotion, and balance, neuromoto r Home Environment Living Environment Lives With: spouse(son lives nearby) Living Arrangements: house Home Accessibility: stairs to enter home Number of Stairs to Enter Home: 3(No railing- in the process of obtaining rails) Number of Stairs Within Home: 1(sunken living room) Stair Railings at Home: none Living Environment Comment: BR layout: accessible to walker, walk-in shower, shower chair, standard height toilet seat Prior Function Functional Level Prior Transferring: independent Ambulation: independent Toileting: independent Bathing: independent Dressing: independent Eating: independent Communication: understands/communicates without difficulty Equipment Currently Used at Home: 2 wheeled walker (FWW), 4 wheeled walker (4WW)(walkers pr imarily used by spouse) Prior Functional Level Comment: Pt independent with all mobility at baseline. Denies any re cent falls. Strength Strength Testing Results: no strength deficits were identified Cognition Cognitive Assessment Additional Documentation: orientation Mood/Behavior: behavior appropriate to situation Orientation: oriented x 4 Tone Muscle Tone Assessment Muscle Tone Assessment: within normal limits Sensory Sensory Assessment Additional Documentation: light touch Vision Vision Assessment Vision Comments: Wears glasses Additional Documentation: scanning, acuity Visual Acuity Comment: Able to read whiteboard and clock on wall without difficulty Visual Scanning: WNL FUNCTIONAL MOBILITY Bed Mobility Assistive Device: none Supine to Sit, Level of [place]: independent Transfers Sit-Stand, Level of [place]: independent Stand-Sit, Level of [place]: independent Dwt-Lonoc-Vtn, Assistive Device: none Gait Level of [place]: independent Assistive Device: none Distance (feet): 450 Stairs Number of Stairs: 4 Handrail Location: both sides Level of [place]: supervised Assistive Device: none Technique Used: step over step (ascending), step to step (descending) Safety Issues: balance decreased during turns Impairments: impaired balance Balance Balance Additional Documentation: Tinetti (group) Strength Strength Testing Results: no strength deficits were identified Goals Reflects last filed data and may be from multiple contributors. Stair Goal STG Status: new STG [place] Level: independent STG Assistive Device: none STG Number of Stairs: 5 lan of Care - Mellisa Wilson RN - 05/17/2019 1:03 AM PDT Problem: Adult Inpatient Plan of Care Goal: Absence of Hospital-Acquired Illness or Injury Outcome: Ongoing, progressing Pt educated on fall prevention and safety while at hospital. Pt agreed to call if getting u p so staff is aware, informed pt of risks for another stroke. lan of Enrique - Rahul García RN - 05/16/2019 6:33 PM PDTPt arrived on unit at 1830, no complaints or concerns verbalized.Electronically s igned by Rahul García RN at 05/16/2019 6:33 PM PDTPlan of Enrique - Sammie Reese MD - 0 05/16/2019 6:13 PM PDTTried to see patient in ED then on 8th floor, patient is in the MRI. Will try to check later. Admitting provider reports that he was started on ASA and Plavix per vascular in addition t o statin. documented in this encounter Plan of Treatment +--------+---------+ + + + | Date | Type | Specialty | Care Team | Description | +--------+---------+ + + + | 06/25/ | Office | Cardiology | Connie Alvarez | | | 2019 | Visit | | [address] | | | | | | [address] | | | | | | [place] [address] | | | | | | [phone] | | | | | | | | +--------+---------+ + + + documented as of this encounter Procedures + +--------+ + + + | Procedure Name | Priori | Date/Time | Associated Diagnosis | Comments | | | ty | | | | + +--------+ + + + | POC GLUCOSE (NON | Routin | 05/17/2019 | | Results for this | | ORD) | e | 9:36 PM | | procedure are in the | | | | PDT | | results section. | + +--------+ + + + | POC GLUCOSE (NON | Routin | 05/17/2019 | | Results for this | | ORD) | e | 5:22 PM | | procedure are in the | | | | PDT | | results section. | + +--------+ + + + | POC GLUCOSE (NON | Routin | 05/17/2019 | | Results for this | | ORD) | e | 12:02 PM | | procedure are in the | | | | PDT | | results section. | + +--------+ + + + | ECHO COMPLETE | Routin | 05/17/2019 | | Results for this | | | e | 11:00 AM | | procedure are in the | | | | PDT | | results section. | + +--------+ + + + | POC GLUCOSE (NON | Routin | 05/17/2019 | | Results for this | | ORD) | e | 6:25 AM | | procedure are in the | | | | PDT | | results section. | + +--------+ + + + | CBC WITH | Routin | 05/17/2019 | | Results for this | | DIFFERENTIAL | e | 4:25 AM | | procedure are in the | | | | PDT | | results section. | + +--------+ + + + | PHOSPHORUS | Routin | 05/17/2019 | | Results for this | | | e | 4:25 AM | | procedure are in the | | | | PDT | | results section. | + +--------+ + + + | MAGNESIUM | Routin | 05/17/2019 | | Results for this | | | e | 4:25 AM | | procedure are in the | | | | PDT | | results section. | + +--------+ + + + | HEMOGLOBIN A1C | Routin | 05/17/2019 | | Results for this | | | e | 4:25 AM | | procedure are in the | | | | PDT | | results section. | + +--------+ + + + | BASIC METABOLIC | Routin | 05/17/2019 | | Results for this | | PANEL | e | 4:25 AM | | procedure are in the | | | | PDT | | results section. | + +--------+ + + + | POC GLUCOSE (NON | Routin | 05/16/2019 | | Results for this | | ORD) | e | 11:47 PM | | procedure are in the | | | | PDT | | results section. | + +--------+ + + + | MRI BRAIN WO | STAT | 05/16/2019 | | Results for this | | CONTRAST | | 6:08 PM | | procedure are in the | | | | PDT | | results section. | + +--------+ + + + | CT ANGIOGRAM HEAD | PILY | 05/16/2019 | | Results for this | | NECK ACUTE STROKE | | 2:17 PM | | procedure are in the | | | | PDT | | results section. | + +--------+ + + + | ECG 12 LEAD | Routin | 05/16/2019 | | Results for this | | | e | 1:05 PM | | procedure are in the | | | | PDT | | results section. | + +--------+ + + + | LIPID PANEL | Routin | 05/16/2019 | | Results for this | | | e | 12:50 PM | | procedure are in the | | | | PDT | | results section. | + +--------+ + + + | TROPONIN I | STAT | 05/16/2019 | | Results for this | | | | 12:50 PM | | procedure are in the | | | | PDT | | results section. | + +--------+ + + + | CBC WITH | STAT | 05/16/2019 | | Results for this | | DIFFERENTIAL | | 12:50 PM | | procedure are in the | | | | PDT | | results section. | + +--------+ + + + | COMPREHENSIVE | STAT | 05/16/2019 | | Results for this | | METABOLIC PANEL | | 12:50 PM | | procedure are in the | | | | PDT | | results section. | + +--------+ + + + documented in this encounter Results POC Glucose (05/17/2019 9:36 PM PDT) + + + + + + | Component | Value | Ref Range | Performed | Pathologist | | | | | At | Signature | + + + + + + | Glucose, | 78Comment: Testing | 65 - 99 mg/dL | [facility] | | | POC | performed at [facility];[address] | | LABORATORY | | | | [address];[place] | | | | | | [address] | | | | + + + + + + + + | Specimen | + + | | + + + + + + + | Performing | Address | City/State/Zipcode | Phone Number | | Organization | | | | + + + + + | [facility] | [address] | [place] [address] | [phone] | + + + + + POC Glucose (05/17/2019 5:22 PM PDT) + + + + + + | Component | Value | Ref Range | Performed | Pathologist | | | | | At | Signature | + + + + + + | Glucose, | 79Comment: Testing | 65 - 99 mg/dL | [facility] | | | POC | performed at [facility];[address] | | LABORATORY | | | | [address];[place] | | | | | | [address] | | | | + + + + + + + + | Specimen | + + | | + + + + + + + | Performing | Address | City/State/Zipcode | Phone Number | | Organization | | | | + + + + + | [facility] | [address] | [place] [address] | [phone] | + + + + + POC Glucose (05/17/2019 12:02 PM PDT) + + + + + + | Component | Value | Ref Range | Performed | Pathologist | | | | | At | Signature | + + + + + + | Glucose, | 96Comment: Testing | 65 - 99 mg/dL | [facility] | | | POC | performed at [facility];[address] | | LABORATORY | | | | [address];[place], [place] | | | | | | [address] | | | | + + + + + + + + | Specimen | + + | | + + + + + + + | Performing | Address | City/State/Zipcode | Phone Number | | Organization | | | | + + + + + | [facility] | [address] | [place] [address] | [phone] | + + + + + ECHO Complete (05/17/2019 11:00 AM PDT) + +--------+ + + + | Component | Value | Ref Range | Performed | Pathologist | | | | | At | Signature | + +--------+ + + + | Patient | 175 lb | | [facility] | | | Weight | | | | | | (lbs) | | | | | + +--------+ + + + | Patient | 69" | | [facility] | | | Height | | | | | + +--------+ + + + | Heart Rate | 66 | | [facility] | | + +--------+ + + + | LVEF-TTE | 75 | % | [facility] | | | TRANSTHORAC | | | | | | IC ECHO | | | | | + +--------+ + + + | Inferior | 1.17 | cm | [facility] | | | Vena Cava | | | | | | Diameter at | | | | | | Expiration | | | | | + +--------+ + + + | RA PRESSURE | 3 | mmHg | [facility] | | + +--------+ + + + | LVIDd | 3.54 | cm | [facility] | | + +--------+ + + + | FS | 34 | % | [facility] | | + +--------+ + + + | LA volume | 64.42 | mL | [facility] | | + +--------+ + + + | Ascending | 4.37 | cm | [facility] | | | aorta | | | | | + +--------+ + + + | AV mean | 8.12 | mmHg | [facility] | | | gradient | | | | | + +--------+ + + + | Aortic | 1.87 | cm2 | [facility] | | | Valve Area | | | | | | by | | | | | | Continuity | | | | | | VTI | | | | | + +--------+ + + + | MV Area by | 1.99 | cm2 | [facility] | | | P 1/2 | | | | | | method | | | | | + +--------+ + + + | PV peak | 2.07 | mmHg | [facility] | | | gradient | | | | | + +--------+ + + + | LVOT | 1.9 | cm | [facility] | | | diameter | | | | | + +--------+ + + + | LVOT peak | 127.99 | cm/s | [facility] | | | sissy | | | | | + +--------+ + + + | LVOT peak | 29.71 | cm | [facility] | | | VTI | | | | | + +--------+ + + + | AV peak sissy | 184.94 | cm/s | [facility] | | + +--------+ + + + | AV VTI | 44.92 | cm | [facility] | | + +--------+ + + + | MR max sissy | 124.71 | cm/s | [facility] | | + +--------+ + + + | AV peak | 13.68 | mmHg | [facility] | | | gradient | | | | | + +--------+ + + + | TV peak | 1.75 | mmHg | [facility] | | | gradient | | | | | + +--------+ + + + | PV mean | 1.19 | mmHg | [facility] | | | gradient | | | | | + +--------+ + + + | MV VTI | 40.66 | cm | [facility] | | + +--------+ + + + | MV Pressure | 110.31 | msec | [facility] | | | 1/2 time | | | | | + +--------+ + + + | LA Volume | 33 | mL/m2 | [facility] | | | Index | | | | | + +--------+ + + + | AV LVOT | 6.55 | mmHg | [facility] | | | Peak | | | | | | Gradient | | | | | + +--------+ + + + | AV LVOT | 4.14 | mmHg | [facility] | | | Mean | | | | | | Gradient | | | | | + +--------+ + + + | RV Free | 5.97 | cm/s | [facility] | | | Wall Peak | | | | | | S' | | | | | + +--------+ + + + | PI Peak | 72 | cm/s | [facility] | | | Velocity | | | | | + +--------+ + + + | LV | 8.17 | cm | [facility] | | | Diastolic | | | | | | Length 4C | | | | | + +--------+ + + + | RV | 3.71 | cm | [facility] | | | Diastolic | | | | | | Basal | | | | | | Diameter | | | | | + +--------+ + + + | LV | 69 | % | [facility] | | | Coates's | | | | | | Biplane EF | | | | | + +--------+ + + + | LV ED | 72.74 | ml | [facility] | | | Volume | | | | | | (Coates's) | | | | | + +--------+ + + + | LV ED | 37 | ml/m2 | [facility] | | | Volume | | | | | | Index | | | | | + +--------+ + + + | LV ES | 22.51 | ml | [facility] | | | Volume | | | | | + +--------+ + + + | LVOT Mean | 98.69 | cm/s | [facility] | | | Velocity | | | | | + +--------+ + + + | MV | 407.37 | msec | [facility] | | | Deceleratio | | | | | | n Time | | | | | + +--------+ + + + | MV E/A | 0.92 | | [facility] | | | Ratio | | | | | + +--------+ + + + | MV Peak | 121.44 | cm/s | [facility] | | | A-Wave | | | | | + +--------+ + + + | MV Peak | 111.25 | cm/s | [facility] | | | E-Wave | | | | | + +--------+ + + + | TV | 228.62 | msec | [facility] | | | Deceleratio | | | | | | n Time | | | | | + +--------+ + + + | TV Peak | 37.43 | cm/s | [facility] | | | A-Wave | | | | | + +--------+ + + + | TV Peak | 66.11 | cm/s | [facility] | | | E-Wave | | | | | + +--------+ + + + | PV Mean | 52.45 | cm/s | [facility] | | | Velocity | | | | | + +--------+ + + + | PV | 100.32 | cm/s | [facility] | | | Regurgitati | | | | | | on Velocity | | | | | + +--------+ + + + | AV Mean | 139.58 | cm/s | [facility] | | | Velocity | | | | | + +--------+ + + + | LA Area | 22.63 | cm2 | [facility] | | + +--------+ + + + | LA Major | 0.4492 | cm | [facility] | | + +--------+ + + + | LV ES | 12 | ml/m2 | [facility] | | | Volume | | | | | | Index | | | | | + +--------+ + + + | Cardiac | 5.89 | l/min | [facility] | | | Output | | | | | + +--------+ + + + | Cardiac | 3.02 | l/min/m2 | [facility] | | | Index | | | | | + +--------+ + + + | IVS | 1.53 | cm | [facility] | | | Diastolic | | | | | | Thickness | | | | | | MM | | | | | + +--------+ + + + | LVPW | 1.17 | cm | [facility] | | | Diastolic | | | | | | Thickness | | | | | | MM | | | | | + +--------+ + + + | IVS | 1.95 | cm | [facility] | | | Systolic | | | | | | Thickness | | | | | | MM | | | | | + +--------+ + + + | LV Systolic | 2.33 | cm | [facility] | | | Diameter | | | | | | MM | | | | | + +--------+ + + + | LVPW | 1.97 | cm | [facility] | | | Systolic | | | | | | Thickness | | | | | | MM | | | | | + +--------+ + + + | TAPSE | 1.48 | cm | [facility] | | + +--------+ + + + + + | Specimen | + + | | + + + + + | Narrative | Performed At | + + + | There is | [facility] | | moderate increased left ventricular wall thickness. The left | | | ventricular ejection fraction is 75%. Aortic valve area by | | | continuity equation is 1.87 cm2. Ascending aorta is 4.37 cm. | | | | | + + + + +---------+ + + | Performing | Address | City/State/Zipcode | Phone Number | | Organization | | | | + +---------+ + + | [facility] | | | | + +---------+ + + POC Glucose (05/17/2019 6:25 AM PDT) + + + + + + | Component | Value | Ref Range | Performed | Pathologist | | | | | At | Signature | + + + + + + | Glucose, | 94Comment: Testing | 65 - 99 mg/dL | [facility] | | | POC | performed at [facility];[address] | | LABORATORY | | | [address];[place] | | | | | | [address] | | | | + + + + + + + + | Specimen | + + | | + + + + + + + | Performing | Address | City/State/Zipcode | Phone Number | | Organization | | | | + + + + + | [facility] | [address] | [place] [address] | [phone] | + + + + + Magnesium (05/17/2019 4:25 AM PDT) + + + + + + | Component | Value | Ref Range | Performed | Pathologist | | | | | At | Signature | + + + + + + | Magnesium | 2.0Comment: Testing | 1.7 - 2.4 mg/dL | [facility] | | | | performed at [facility], [address] | | LABORATORY | | | | [address], | | | | | | [place] [address] | | | | + + + + + + + + | Specimen | + + | Blood | + + + + + + + | Performing | Address | City/State/Zipcode | Phone Number | | Organization | | | | + + + + + | [facility] | [address] | [place] [address] | [phone] | + + + + + Phosphorus (05/17/2019 4:25 AM PDT) + + + + + + | Component | Value | Ref Range | Performed | Pathologist | | | | | At | Signature | + + + + + + | Phosphorus | 2.6Comment: Testing | 2.3 - 4.8 mg/dL | [facility] | | | | performed at [facility], [address] | | LABORATORY | | | | [address], | | | | | | [place] [address] | | | | + + + + + + + + | Specimen | + + | Blood | + + + + + + + | Performing | Address | City/State/Zipcode | Phone Number | | Organization | | | | + + + + + | [facility] | [address] | [place] [address] | [phone] | + + + + + Hemoglobin A1C (05/17/2019 4:25 AM PDT) + + + + + + | Component | Value | Ref Range | Performed | Pathologist | | | | | At | Signature | + + + + + + | Hemoglobin | 5.6Comment: HbA1c method | 4.0 - 6.0 % | [facility] | | | A1c | is certified by [employer] | | LABORATORY | | | | and traceable to the | | | | | | DCCT reference | | | | | | method.ADA guidelines | | | | | | indicate: | | | | | | Prediabetes: 5.7 - 6.4 | | | | | | Diabetes: >6.4 | | | | | | Glycemic control for | | | | | | adults with diabetes: | | | | | | <7.0Effective 10/11/2018: | | | | | | Note New Method | | | | + + + + + + | Estimated | 114Comment: Estimated | <154 mg/dL | [facility] | | | Average | Average Glucose | | LABORATORY | | | Glucose | calculated from | | | | | | hemoglobin A1c by use of | | | | | | the ADArecommended | | | | | | formula.Testing | | | | | | performed at [facility], [address] | | | | | | [facility], | | | | | | [place] [address] | | | | + + + + + + + + | Specimen | + + | Blood | + + + + + + + | Performing | Address | City/State/Zipcode | Phone Number | | Organization | | | | + + + + + | [facility] | [address] | [place] [address] | [phone] | + + + + + CBC with Differential (05/17/2019 4:25 AM PDT) + + + + + + | Component | Value | Ref Range | Performed | Pathologist | | | | | At | Signature | + + + + + + | WBC | 4.26 | 3.80 - 11.00 | [facility] | | | | | K/uL | LABORATORY | | + + + + + + | Red Blood | 4.70 | 4.20 - 5.70 | [facility] | | | Cells | | M/uL | LABORATORY | | + + + + + + | Hemoglobin | 13.2 | 13.2 - 17.0 | [facility] | | | | | g/dL | LABORATORY | | + + + + + + | Hematocrit | 40.6 | 39.0 - 50.0 % | [facility] | | | | | | LABORATORY | | + + + + + + | MCV | 86.3 | 80.0 - 100.0 fl | [facility] | | | | | | LABORATORY | | + + + + + + | MCH | 28.1 | 27.0 - 34.0 pg | [facility] | | | | | | LABORATORY | | + + + + + + | MCHC | 32.6 | 32.0 - 35.5 | [facility] | | | | | g/dL | LABORATORY | | + + + + + + | RDW-SD | 48.1 | 37 - 53 fl | [facility] | | | | | | LABORATORY | | + + + + + + | Platelet | 192 | 150 - 400 K/uL | [facility] | | | Count | | | LABORATORY | | + + + + + + | MPV | 9.3 | fl | [facility] | | | | | | LABORATORY | | + + + + + + | Diff Type | AUTOMATED | | [facility] | | | | | | LABORATORY | | + + + + + + | % | 60.16 | % | [facility] | | | Neutrophils | | | LABORATORY | | + + + + + + | % | 23.97 | % | [facility] | | | Lymphocytes | | | LABORATORY | | + + + + + + | Monocyte % | 12.30 | % | [facility] | | | | | | LABORATORY | | + + + + + + | Eosinophils | 2.87 | % | [facility] | | | % | | | LABORATORY | | + + + + + + | Basophils % | 0.70 | % | [facility] | | | | | | LABORATORY | | + + + + + + | Neutrophils | 2.56 | 1.90 - 7.40 | [facility] | | | , Absolute | | K/uL | LABORATORY | | + + + + + + | Absolute | 1.02 | 1.00 - 3.90 | [facility] | | | Lymphocytes | | K/uL | LABORATORY | | + + + + + + | Absolute | 0.52 | 0.00 - 0.80 | [facility] | | | Monocytes | | K/uL | LABORATORY | | + + + + + + | Eosinophils | 0.12 | 0.00 - 0.50 | [facility] | | | , Absolute | | K/uL | LABORATORY | | + + + + + + | Basophils, | 0.03Comment: Testing | 0.00 - 0.10 | [facility] | | | Absolute | performed at [facility], [address] | K/uL | LABORATORY | | | | [address], | | | | | | [place] [address] | | | | + + + + + + + + | Specimen | + + | Blood | + + + + + + + | Performing | Address | City/State/Zipcode | Phone Number | | Organization | | | | + + + + + | [facility] | [address] | [place] [address] | [phone] | + + + + + Basic Metabolic Panel (05/17/2019 4:25 AM PDT) + + + + + + | Component | Value | Ref Range | Performed | Pathologist | | | | | At | Signature | + + + + + + | Na | 144 | 135 - 145 | [facility] | | | | | mmol/L | LABORATORY | | + + + + + + | K | 4.1 | 3.5 - 4.9 | [facility] | | | | | mmol/L | LABORATORY | | + + + + + + | Cl | 110 (H) | 99 - 109 mmol/L | [facility] | | | | | | LABORATORY | | + + + + + + | CO2 | 25 | 23 - 32 mmol/L | [facility] | | | | | | LABORATORY | | + + + + + + | Anion Gap | 13 | 5 - 20 mmol/L | [facility] | | | | | | LABORATORY | | + + + + + + | Glucose | 102 (H) | 65 - 99 mg/dL | [facility] | | | | | | LABORATORY | | + + + + + + | BUN | 15 | 8 - 25 mg/dL | [facility] | | | | | | LABORATORY | | + + + + + + | Creatinine | 1.1 | 0.70 - 1.30 | [facility] | | | | | mg/dL | LABORATORY | | + + + + + + | BUN/Creatin | 14 | | [facility] | | | ine Ratio | | | LABORATORY | | + + + + + + | Calcium | 8.9 | 8.5 - 10.5 | [facility] | | | | | mg/dL | LABORATORY | | + + + + + + | Estimated | >60Comment: GFR <60: | >60 | [facility] | | | GFR | CHRONIC KIDNEY [...] | | | | | | MDRD [facility] traceable | | | | | | equation.Testing | | | | | | performed at [facility], [address] | | | | | | [facility], | | | | | | [place] [address] | | | | + + + + + + + + | Specimen | + + | Blood | + + + + + + + | Performing | Address | City/State/Zipcode | Phone Number | | Organization | | | | + + + + + | [facility] | [address] | [place] [address] | [phone] | + + + + + POC Glucose (05/16/2019 11:47 PM PDT) + + + + + + | Component | Value | Ref Range | Performed | Pathologist | | | | | At | Signature | + + + + + + | Glucose, | 121 (H)Comment: Testing | 65 - 99 mg/dL | [facility] | | | POC | performed at [facility];[address] | | LABORATORY | | | | [address];[place], [place] | | | | | | [address] | | | | + + + + + + + + | Specimen | + + | | + + + + + + + | Performing | Address | City/State/Zipcode | Phone Number | | Organization | | | | + + + + + | [facility] | [address] | [place] [address] | [phone] | + + + + + MRI Brain wo Contrast (05/16/2019 6:08 PM PDT) + + | Specimen | + + | | + + + + + | Narrative | Performed At | + + + | MRI BRAIN WITHOUT CONTRAST CLINICAL INFORMATION: Slurred | [facility] | | speech, facial drop COMPARISON: No comparison. PROCEDURE: | | | Sagittal T1, axial FLAIR, axial T2, axial T1, axial gradient | | | susceptibility, coronal T2, axial DWI. FINDINGS: Brain: Abnormal | | | restricted diffusion is seen within the right anterior melissa radiata | | | compatible with an area of acute infarction. This region measures | | | approximately 15 mm in diameter. No evidence of hemorrhage or mass | | | effect is seen. Patchy white matter changes are present | | | throughout. The basal ganglia and thalami are symmetric. The | | | brainstem and cerebellum are unremarkable. Ventricles and | | | extra-axial fluid spaces: No abnormal extra-axial fluid collections. | | | Sella, suprasellar cistern, and orbits: Bilateral cataract | | | surgery. Major vascular flow voids: Normal. Calvarium and | | | extracranial soft tissues: Normal. Paranasal sinuses and mastoid | | | air cells: Bilateral ethmoidectomies. IMPRESSION: Abnormal | | | diffusion restriction is seen in the right centrum semiovale | | | compatible with an area of acute infarction. Signed by: | | | Lakshmi Nicolas Richard Sign Date/Time: 05/16/2019 6:23 PM | | + + + + + | Procedure Note | + + | Frantz, Rad Results In - 05/16/2019 6:27 PM PDT | | MRI BRAIN WITHOUT CONTRAST | | | | CLINICAL INFORMATION: | | Slurred speech, facial drop | | | | COMPARISON: | | No comparison. | | | | PROCEDURE: | | Sagittal T1, axial FLAIR, axial T2, axial T1, axial gradient | | susceptibility, coronal T2, axial DWI. | | | | FINDINGS: | | Brain: Abnormal restricted diffusion is seen within the right anterior | | melissa radiata compatible with an area of acute infarction. This | | region measures approximately 15 mm in diameter. | | | | No evidence of hemorrhage or mass effect is seen. | | | | Patchy white matter changes are present throughout. The basal ganglia | | and thalami are symmetric. The brainstem and cerebellum are | | unremarkable. | | | | Ventricles and extra-axial fluid spaces: No abnormal extra-axial fluid | | collections. | | | | Sella, suprasellar cistern, and orbits: Bilateral cataract surgery. | | | | Major vascular flow voids: Normal. | | | | Calvarium and extracranial soft tissues: Normal. | | | | Paranasal sinuses and mastoid air cells: Bilateral ethmoidectomies. | | | | IMPRESSION: | | Abnormal diffusion restriction is seen in the right centrum semiovale | | compatible with an area of acute infarction. | | | | | | | | Signed by: Lakshmi Nicolas Richard | | Sign Date/Time: 05/16/2019 6:23 PM | + + + +---------+ + + | Performing | Address | City/State/Zipcode | Phone Number | | Organization | | | | + +---------+ + + | [facility] | | | | + +---------+ + + CT Angiogram Head Neck Acute Stroke (05/16/2019 2:17 PM PDT) + + | Specimen | + + | | + + + + + | Narrative | Performed At | + + + | CT ANGIOGRAM OF THE HEAD WITHOUT AND WITH CONTRAST; CT ANGIOGRAM | [facility] | | OF THE NECK WITH CONTRAST CLINICAL INFORMATION: Left-sided | | | facial droop, slurred speech COMPARISON: SINUS LIMITED WO | | | CONTRAST (07/13/2013); PROCEDURE: CT Head: Axial images were | | | obtained through the brain IV without contrast. CT Angiogram | | | Head: Thin section axial images were obtained through the brain | | | during the arterial phase after IV administration. CT Angiogram | | | Neck: Thin section axial images were obtained through the neck during | | | the arterial phase after IV administration. NASCET criteria | | | applied for internal carotid stenosis determination. 3D and | | | multiplanar reconstructions were obtained from the acquisition data. | | | Contrast: 100mL Omnipaque 350 IV. At least one of the | | | following CT dose optimization techniques were used: Automated | | | exposure control; Adjustment of mA and/or kV according to patient | | | size; Use of iterative reconstruction technique. FINDINGS: CT | | | Head: Brain: No intracranial hemorrhage, midline shift or pathologic | | | mass effect. No cerebral edema, mass lesion, or evidence of acute | | | infarct. ASPECTS score is 10. No areas of abnormal enhancement are | | | seen within the brain parenchyma, leptomeninges or dura. | | | Ventricles and extra-axial fluid spaces: Normal. Paranasal sinuses | | | and mastoid air cells: The paranasal sinuses demonstrate prior | | | endoscopic sinus surgery with bilateral maxillary antrectomies, | | | resections of the middle nasal turbinates, superior nasal turbinates | | | and ethmoid air cells. The mastoid air cells are normally aerated. | | | Calvarium and extracranial soft tissues: Normal. Orbits: The | | | orbits and their contents demonstrate prior bilateral cataract | | | surgery but are otherwise normal. CTA Head: Intracranial | | | Segments of the Internal Carotid Arteries: Normal contrast | | | enhancement without evidence of occlusion, intraluminal thrombus, | | | significant stenosis, or aneurysm. Middle Cerebral Arteries: | | | Normal contrast enhancement without evidence of occlusion, | | | intraluminal thrombus, significant stenosis, or aneurysm. Anterior | | | Cerebral Arteries: Normal contrast enhancement without evidence of | | | occlusion, intraluminal thrombus, significant stenosis, or aneurysm. | | | The anterior communicating artery is patent. Posterior | | | Circulation: The right vertebral artery appears to be occluded at the | | | C1 level as it enters the foramen magnum but then reconstitutes via | | | retrograde flow from the basilar artery to supply the posterior | | | inferior cerebellar artery. This likely represents a focal | | | vertebral artery dissection. The left vertebral artery remains | | | widely patent and is the primary supply to the basilar artery. The | | | basilar artery is normal in course and caliber. The basilar artery | | | supplies the anterior inferior cerebellar arteries, superior | | | cerebellar arteries and posterior cerebral arteries a prominent right | | | posterior communicating artery is noted. The left posterior | | | communicating artery is not seen and may be congenitally absent. | | | CTA Neck: Aortic Arch: Conventional anatomy. Brachiocephalic and | | | subclavian arteries demonstrate normal contrast enhancement without | | | evidence of occlusion, intraluminal thrombus, or significant | | | stenosis. Right Carotid Artery: Prior right carotid endarterectomy | | | noted. Carotid bulb and internal carotid artery are widely patent. | | | Mid cervical right ICA normal lumen measures 3.8 mm, image 110 series | | | 8, 0% NASCET stenosis. The intracranial segment of the distal | | | internal carotid artery is patent. Left Carotid Artery: Prior | | | left carotid endarterectomy noted. Soft plaque creates 50% | | | narrowing in the distal common carotid artery, see image 165 series | | | 8. 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 There is no | | | thrombus within this aneurysm. The left internal carotid artery is | | | otherwise widely patent. The mid cervical left ICA normal lumen | | | measures 3.8 mm, image 110 series 8, 0% NASCET stenosis. The | | | intracranial portion of the left internal carotid artery is patent. | | | Vertebral Arteries: The left vertebral artery is widely patent and | | | is dominant. The right vertebral artery is extremely narrow in | | | caliber throughout its entire course despite a relatively normal size | | | of the foramen transversarium. This suggests extensive dissection | | | of the right vertebral artery. The artery appears to occlude at the | | | C1 level prior to entering the foramen magnum. IMPRESSION: 1. | | | The right vertebral artery is extremely narrow in caliber throughout | | | its entire course despite a relatively normal size of the foramen | | | transversarium. This suggests extensive dissection of the right | | | vertebral artery. The artery appears to occlude at the C1 level | | | prior to entering the foramen magnum. It reconstitutes via | | | retrograde flow from the basilar artery to supply the right posterior | | | inferior cerebellar artery. 2. Bilateral carotid endarterectomy is | | | noted. 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 3. No acute intracranial findings. 4. Aspects | | | score is 10. Signed by: Jay Jay Tan Edward Sign | | | Date/Time: 05/16/2019 2:54 PM | | + + + + + | Procedure Note | + + | Frantz, Rad Results In - 05/16/2019 2:57 PM PDT | | CT ANGIOGRAM OF THE HEAD WITHOUT AND WITH CONTRAST; CT ANGIOGRAM OF THE | | NECK WITH CONTRAST | | | | CLINICAL INFORMATION: | | Left-sided facial droop, slurred speech | | | | COMPARISON: | | SINUS LIMITED WO CONTRAST (07/13/2013); | | | | PROCEDURE: | | CT Head: Axial images were obtained through the brain IV without | | contrast. | | | | CT Angiogram Head: Thin section axial images were obtained through the | | brain during the arterial phase after IV administration. | | | | CT Angiogram Neck: Thin section axial images were obtained through the | | neck during the arterial phase after IV administration. | | | | NASCET criteria applied for internal carotid stenosis determination. | | | | 3D and multiplanar reconstructions were obtained from the acquisition | | data. | | | | Contrast: 100mL Omnipaque 350 IV. | | | | At least one of the following CT dose optimization techniques were | | used: Automated exposure control; Adjustment of mA and/or kV according | | to patient size; Use of iterative reconstruction technique. | | | | FINDINGS: | | CT Head: | | Brain: No intracranial hemorrhage, midline shift or pathologic mass | | effect. No cerebral edema, mass lesion, or evidence of acute infarct. | | ASPECTS score is 10. No areas of abnormal enhancement are seen within | | the brain parenchyma, leptomeninges or dura. | | | | Ventricles and extra-axial fluid spaces: Normal. | | | | Paranasal sinuses and mastoid air cells: The paranasal sinuses | | demonstrate prior endoscopic sinus surgery with bilateral maxillary | | antrectomies, resections of the middle nasal turbinates, superior nasal | | turbinates and ethmoid air cells. The mastoid air cells are normally | | aerated. | | | | Calvarium and extracranial soft tissues: Normal. | | | | Orbits: The orbits and their contents demonstrate prior bilateral | | cataract surgery but are otherwise normal. | | | | | | CTA Head: | | Intracranial Segments of the Internal Carotid Arteries: Normal contrast | | enhancement without evidence of occlusion, intraluminal thrombus, | | significant stenosis, or aneurysm. | | | | Middle Cerebral Arteries: Normal contrast enhancement without evidence | | of occlusion, intraluminal thrombus, significant stenosis, or aneurysm. | | | | Anterior Cerebral Arteries: Normal contrast enhancement without | | evidence of occlusion, intraluminal thrombus, significant stenosis, or | | aneurysm. The anterior communicating artery is patent. | | | | Posterior Circulation: The right vertebral artery appears to be | | occluded at the C1 level as it enters the foramen magnum but then | | reconstitutes via retrograde flow from the basilar artery to supply the | | posterior inferior cerebellar artery. This likely represents a focal | | vertebral artery dissection. The left vertebral artery remains widely | | patent and is the primary supply to the basilar artery. The basilar | | artery is normal in course and caliber. The basilar artery supplies | | the anterior inferior cerebellar arteries, superior cerebellar arteries | | and posterior cerebral arteries a prominent right posterior | | communicating artery is noted. The left posterior communicating artery | | is not seen and may be congenitally absent. | | | | | | CTA Neck: | | Aortic Arch: Conventional anatomy. Brachiocephalic and subclavian | | arteries demonstrate normal contrast enhancement without evidence of | | occlusion, intraluminal thrombus, or significant stenosis. | | | | Right Carotid Artery: Prior right carotid endarterectomy noted. | | Carotid bulb and internal carotid artery are widely patent. Mid | | cervical right ICA normal lumen measures 3.8 mm, image 110 series 8, 0% | | NASCET stenosis. The intracranial segment of the distal internal | | carotid artery is patent. | | | | Left Carotid Artery: Prior left carotid endarterectomy noted. Soft | | plaque creates 50% narrowing in the distal common carotid artery, see | | image 165 series 8. 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 There | | is no thrombus within this aneurysm. The left internal carotid artery | | is otherwise widely patent. The mid cervical left ICA normal lumen | | measures 3.8 mm, image 110 series 8, 0% NASCET stenosis. The | | intracranial portion of the left internal carotid artery is patent. | | | | Vertebral Arteries: The left vertebral artery is widely patent and is | | dominant. The right vertebral artery is extremely narrow in caliber | | throughout its entire course despite a relatively normal size of the | | foramen transversarium. This suggests extensive dissection of the | | right vertebral artery. The artery appears to occlude at the C1 level | | prior to entering the foramen magnum. | | | | IMPRESSION: | | 1. The right vertebral artery is extremely narrow in caliber throughout | | its entire course despite a relatively normal size of the foramen | | transversarium. This suggests extensive dissection of the right | | vertebral artery. The artery appears to occlude at the C1 level prior | | to entering the foramen magnum. It reconstitutes via retrograde flow | | from the basilar artery to supply the right posterior inferior | | cerebellar artery. | | 2. Bilateral carotid endarterectomy is noted. A saccular aneurysm | | arises from the lateral margin of the left carotid bulb with a mouth | | measuring 6.7 x 9.4 mm and a dome height of 3.7 mm. | | 3. No acute intracranial findings. | | 4. Aspects score is 10. | | | | | | | | Signed by: Jay Jay Tan Edward | | Sign Date/Time: 05/16/2019 2:54 PM | + + + +---------+ + + | Performing | Address | City/State/Zipcode | Phone Number | | Organization | | | | + +---------+ + + | [facility] | | | | + +---------+ + + ECG 12 lead (05/16/2019 1:05 PM PDT) + + + + + + | Component | Value | Ref Range | Performed | Pathologist | | | | | At | Signature | + + + + + + | VENTRICULAR | 61 | BPM | [facility] | | | RATE EKG | | | | | + + + + + + | ATRIAL RATE | 61 | BPM | [facility] | | + + + + + + | P-R | 226 | ms | [facility] | | | INTERVAL | | | | | + + + + + + | QRS | 110 | ms | [facility] | | | DURATION | | | | | + + + + + + | Q-T | 408 | ms | [facility] | | | INTERVAL | | | | | + + + + + + | Q-T | 410 | ms | [facility] | | | INTERVAL | | | | | | (CORRECTED) | | | | | + + + + + + | P WAVE AXIS | 4 | degrees | [facility] | | + + + + + + | QRS AXIS | -12 | degrees | [facility] | | + + + + + + | T AXIS | 18 | degrees | [facility] | | + + + + + + | INTERPRETAT | Sinus rhythm with 1st | | [facility] | | | ION TEXT | degree A-V | | | | | | blockIncomplete right | | | | | | bundle branch | | | | | | blockModerate voltage | | | | | | criteria for LVH, may be | | | | | | normal | | | | | | variantBorderline | | | | | | ECGWhen compared with | | | | | | ECG of 31-MAY-2018 | | | | | | 09:48,Previous ECG has | | | | | | undetermined rhythm, | | | | | | needs reviewThis ECG | | | | | | contains Unconfirmed | | | | | | Interpretation | | | | | | Statements. See ED | | | | | | Record for Physician | | | | | | Interpretation. | | | | | | Confirmed by MUSE READ | | | | | | ONLY, -COMPUTER ([id number]), | | | | | | graphic editor Chente Babb | | | | | | Wood ([id number]) on 05/18/2019 | | | | | | 4:00:38 AM | | | | + + [...] | | | + +---------+ + + Lipid Panel (05/16/2019 12:50 PM PDT) + + + + + + | Component | Value | Ref Range | Performed | Pathologist | | | | | At | Signature | + + + + + + | Cholesterol | 196 | <200 mg/dL | [facility] | | | | | | LABORATORY | | + + + + + + | Triglycerid | 104 | <150 mg/dL | [facility] | | | es | | | LABORATORY | | + + + + + + | HDL | 51 | >40 mg/dL | [facility] | | | | | | LABORATORY | | + + + + + + | LDL, | 124 (H)Comment: Testing | <100 mg/dL | [facility] | | | Calculated | performed at [facility], [address] | | LABORATORY | | | | [address], | | | | | | [place] [address] | | | | + + + + + + + + | Specimen | + + | Blood | + + + + + + + | Performing | Address | City/State/Zipcode | Phone Number | | Organization | | | | + + + + + | [facility] | [address] | [place] [address] | [phone] | + + + + + Troponin I (05/16/2019 12:50 PM PDT) + + + + + + | Component | Value | Ref Range | Performed | Pathologist | | | | | At | Signature | + + + + + + | Troponin I | 0.022Comment: 0.04 | 0.00 - 0.04 | [facility] [...] at | | | | | | [facility];[address] [facility] | | | | | | [facility];[place] [address] | | | | + + + + + + + + | Specimen | + + | Blood | + + + + + + + | Performing | Address | City/State/Zipcode | Phone Number | | Organization | | | | + + + + + | [facility] | [address] | [place] [address] | [phone] | + + + + + Comprehensive Metabolic Panel (05/16/2019 12:50 PM PDT) + + + + + + | Component | Value | Ref Range | Performed | Pathologist | | | | | At | Signature | + + + + + + | Na | 142 | 135 - 145 | [facility] | | | | | mmol/L | LABORATORY | | + + + + + + | K | 4.2 | 3.5 - 4.9 | [facility] | | | | | mmol/L | LABORATORY | | + + + + + + | Cl | 110 (H) | 99 - 109 mmol/L | [facility] | | | | | | LABORATORY | | + + + + + + | CO2 | 27 | 23 - 32 mmol/L | [facility] | | | | | | LABORATORY | | + + + + + + | Anion Gap | 9 | 5 - 20 mmol/L | [facility] | | | | | | LABORATORY | | + + + + + + | Glucose | 96 | 65 - 99 mg/dL | [facility] | | | | | | LABORATORY | | + + + + + + | BUN | 15 | 8 - 25 mg/dL | [facility] | | | | | | LABORATORY | | + + + + + + | Creatinine | 1.14 | 0.70 - 1.30 | [facility] | | | | | mg/dL | LABORATORY | | + + + + + + | BUN/Creatin | 13 | | [facility] | | | ine Ratio | | | LABORATORY | | + + + + + + | Calcium | 9.0 | 8.5 - 10.5 | [facility] | | | | | mg/dL | LABORATORY | | + + + + + + | Protein, | 6.8 | 6.3 - 8.2 g/dL | [facility] | | | Total | | | LABORATORY | | + + + + + + | Albumin | 4.5 | 3.3 - 4.8 g/dL | [facility] | | | | | | LABORATORY | | + + + + + + | Globulin | 2.3 | 1.3 - 4.9 g/dL | [facility] | | | | | | LABORATORY | | + + + + + + | A/G Ratio | 2.0 | 1.0 - 2.4 | [facility] | | | | | | LABORATORY | | + + + + + + | BILIRUBIN, | 0.8 | 0.1 - 1.5 mg/dL | [facility] | | | TOTAL | | | LABORATORY | | + + + + + + | ALK PHOS | 89 | 35 - 115 U/L | [facility] | | | | | | LABORATORY | | + + + + + + | AST | 22 | 10 - 45 U/L | [facility] | | | | | | LABORATORY | | + + + + + + | ALT | 13 | 10 - 65 U/L | [facility] | | | | | | LABORATORY | | + + + + + + | Estimated | >60Comment: GFR <60: | >60 | [facility] | | | GFR | CHRONIC KIDNEY [...] | | | | | | MDRD [facility] traceable | | | | | | equation.Testing | | | | | | performed at [facility];[address] | | | | | | [facility];[place], [place] | | | | | | [address] | | | | + + + + + + + + | Specimen | + + | Blood | + + + + + + + | Performing | Address | City/State/Zipcode | Phone Number | | Organization | | | | + + + + + | [facility] | [address] [facility] | [place] [address] | [phone] | + + + + + CBC with Differential (05/16/2019 12:50 PM PDT) + + + + + + | Component | Value | Ref Range | Performed | Pathologist | | | | | At | Signature | + + + + + + | WBC | 6.50 | 3.80 - 11.00 | [facility] | | | | | K/uL | LABORATORY | | + + + + + + | Red Blood | 5.34 | 4.20 - 5.70 | [facility] | | | Cells | | M/uL | LABORATORY | | + + + + + + | Hemoglobin | 14.9 | 13.2 - 17.0 | [facility] | | | | | g/dL | LABORATORY | | + + + + + + | Hematocrit | 45.8 | 39.0 - 50.0 % | [facility] | | | | | | LABORATORY | | + + + + + + | MCV | 85.8 | 80.0 - 100.0 fl | [facility] | | | | | | LABORATORY | | + + + + + + | MCH | 27.8 | 27.0 - 34.0 pg | [facility] | | | | | | LABORATORY | | + + + + + + | MCHC | 32.4 | 32.0 - 35.5 | [facility] | | | | | g/dL | LABORATORY | | + + + + + + | RDW-SD | 48.1 | 37 - 53 fl | [facility] | | | | | | LABORATORY | | + + + + + + | Platelet | 222 | 150 - 400 K/uL | [facility] | | | Count | | | LABORATORY | | + + + + + + | MPV | 9.3 | fl | [facility] | | | | | | LABORATORY | | + + + + + + | Diff Type | AUTOMATED | | [facility] | | | | | | LABORATORY | | + + + + + + | % | 77.33 | % | [facility] | | | Neutrophils | | | LABORATORY | | + + + + + + | % | 12.06 | % | [facility] | | | Lymphocytes | | | LABORATORY | | + + + + + + | Monocyte % | 9.44 | % | [facility] | | | | | | LABORATORY | | + + + + + + | Eosinophils | 0.63 | % | [facility] | | | % | | | LABORATORY | | + + + + + + | Basophils % | 0.54 | % | [facility] | | | | | | LABORATORY | | + + + + + + | Neutrophils | 5.03 | 1.90 - 7.40 | [facility] | | | , Absolute | | K/uL | LABORATORY | | + + + + + + | Absolute | 0.78 (L) | 1.00 - 3.90 | [facility] | | | Lymphocytes | | K/uL | LABORATORY | | + + + + + + | Absolute | 0.61 | 0.00 - 0.80 | [facility] | | | Monocytes | | K/uL | LABORATORY | | + + + + + + | Eosinophils | 0.04 | 0.00 - 0.50 | [facility] | | | , Absolute | | K/uL | LABORATORY | | + + + + + + | Basophils, | 0.04Comment: Testing | 0.00 - 0.10 | [facility] | | | Absolute | performed at [facility];[address] | [address] | LABORATORY | | | | [address];[place] | | | | | | [address] | | | | + + + + + + + + | Specimen | + + | Blood | + + + + + + + | Performing | Address | City/State/Zipcode | Phone Number | | Organization | | | | + + + + + | [facility] | [address] | [place] [address] | [phone] | + + + + + documented in this encounter Visit Diagnoses + + | Diagnosis | + + | Acute CVA (cerebrovascular accident) (HCC) - Primary | + + | Cerebrovascular accident (CVA), unspecified mechanism (HCC) | + + | Facial droop Facial weakness | + + | 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 | + + | Carotid aneurysm, 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 | + + | Benign essential hypertension Essential hypertension, benign | + + | Coronary artery disease involving [place] coronary artery of [place] heart | + + | History of CEA (carotid endarterectomy) Other postprocedural status | + + | Hx of CABG Postsurgical aortocoronary bypass status | + + | Chronic cough Cough | + + documented in this encounter Administered Medications + +--------+---------+------+------+------+ | Medication Order | MAR | Action | Dose | Rate | Site | | | Action | Date | | | | + +--------+---------+------+------+------+ + +---+ | acetaminophen (TYLENOL) 160 | | | mg/5 mL liquid 650 mg 650 mg, | | | Per NG tube, EVERY 4 HOURS PRN, | | | Pain, Fever, temperature > or | | | equal to 38.0 C (100.4 F), | | | Starting 05/16/19 at 1836 | | + +---+ | | | + +---+ | acetaminophen (TYLENOL) | | | suppository 650 mg 650 mg, | | | Rectal, EVERY 4 HOURS PRN, Pain, | | | Fever, temperature > or equal to | | | 38.0 C (100.4 F), Starting Wed | | | 05/16/19 at 1836, If unable to | | | take oral., | | + +---+ | | | + +---+ | acetaminophen (TYLENOL) tablet | | | 650 mg 650 mg, Oral, EVERY 4 | | | HOURS PRN, Pain, Fever, | | | temperature > or equal to 38.0 C | | | (100.4 F), Starting 05/16/19 | | | at 1836 | | + +---+ | | | + +---+ + +-------+ +-------+---+---+ | aspirin EC tablet 81 mg 81 mg, | Given | 05/17/20 | 81 mg | | | | Oral, DAILY, First dose on Tue | | 19 10:09 | | | | | 05/17/19 at 0900, Do not cut or | | AM PDT | | | | | crush., | | | | | | + +-------+ +-------+---+---+ +---+---+ | | | +---+---+ + +-------+ +--------+---+---+ | aspirin tablet 325 mg 325 mg, | Given | 05/16/20 | 325 mg | | | | Oral, ONCE, Tue05/16/19 at 1515, | | 19 3:47 | | | | | For 1 dose | | PM PDT | | | | + +-------+ +--------+---+---+ +---+---+ | | | +---+---+ + +-------+ +-------+---+---+ | atorvaSTATin (LIPITOR) tablet | Given | 05/18/20 | 80 mg | | | | 80 mg 80 mg, Oral, NIGHTLY, | | 19 8:51 | | | | | First dose on Tue05/16/19 at 2100 | | PM PDT | | | | + +-------+ +-------+---+---+ +-------+ +-------+---+---+ | Given | 05/17/20 | 80 mg | | | | | 19 8:51 | | | | | | PM PDT | | | | +-------+ +-------+---+---+ | Given | 05/16/20 | 80 mg | | | | | 19 8:30 | | | | | | PM PDT | | | | +-------+ +-------+---+---+ + +---+ | | | + +---+ | benzonatate (TESSALON) capsule | | | 200 mg 200 mg, Oral, EVERY 8 | | | HOURS PRN, Cough, Starting Sandra | | | 05/17/19 at 1116, Swallow capsule | | | whole. Do not chew or crush., | | + +---+ | | | + +---+ + +-------+ +---------+---+---+ | budesonide-formoterol | Given | 05/19/20 | 2 puffs | | | | (SYMBICORT) 160-4.5 mcg/puff | | 19 8:19 | | | | | inhaler 2 puff 2 puff, | | AM PDT | | | | | Inhalation, RT BID, First dose on | | | | | | | 05/16/19 at 2100 | | | | | | + +-------+ +---------+---+---+ +-------+ +---------+---+---+ | Given | 05/18/20 | 2 puffs | | | | | 19 8:51 | | | | | | PM PDT | | | | +-------+ +---------+---+---+ | Given | 05/18/20 | 2 puffs | | | | | 19 10:44 | | | | | | AM PDT | | | | +-------+ +---------+---+---+ +---+---+ | | | +---+---+ + +-------+ +-------+---+---+ | clopidogrel (PLAVIX) tablet 75 | Given | 05/19/20 | 75 mg | | | | mg 75 mg, Oral, DAILY, First | | 19 8:19 | | | | | dose on Tue05/16/19 at 1640 | | AM PDT | | | | + +-------+ +-------+---+---+ +-------+ +-------+---+---+ | Given | 05/18/20 | 75 mg | | | | | 19 10:43 | | | | | | AM PDT | | | | +-------+ +-------+---+---+ | Given | 05/17/20 | 75 mg | | | | | 19 10:09 | | | | | | AM PDT | | | | +-------+ +-------+---+---+ +---+---+ | | | +---+---+ + +-------+ +-------+---+ + | enoxaparin (LOVENOX) 40 mg/0.4 | Given | 05/18/20 | 40 mg | | Other | | mL injection 40 mg 40 mg, | | 19 8:51 | | | (Comment | | Subcutaneous, EVERY 24 HOURS | | PM PDT | | | ) | | INTERVAL, First dose on Wed | | | | | | | 05/16/19 at 2000 | | | | | | + +-------+ +-------+---+ + +-------+ +-------+---+ + | Given | 05/17/20 | 40 mg | | Other | | | 19 8:52 | | | (Comment | | | PM PDT | | | ) | +-------+ +-------+---+ + | Given | 05/16/20 | 40 mg | | Abdomen- | | | 19 8:31 | | | RLQ | | | PM PDT | | | | +-------+ +-------+---+ + +---+---+ | | | +---+---+ + +-------+ +---------+---+---+ | iohexol (OMNIPAQUE 350) 350 | Given | 05/16/20 | 100 mLs | | | | mg/mL injection 100 mL 100 mL, | | 19 1:50 | | | | | Intravenous, ONCE PRN, Other, | | PM PDT | | | | | Starting 05/16/19 at 1350, For | | | | | | | 1 dose, Cat Scanner | | | | | | + +-------+ +---------+---+---+ +---+---+ | | | +---+---+ + +-------+ +-------+---+---+ | losartan (COZAAR) tablet 50 mg | Given | 05/19/20 | 50 mg | | | | 50 mg, Oral, DAILY, First dose | | 19 8:19 | | | | | on Tue05/18/19 at 1100 | | AM PDT | | | | + +-------+ +-------+---+---+ +-------+ +-------+---+---+ | Given | 05/18/20 | 50 mg | | | | | 19 10:46 | | | | | | AM PDT | | | | +-------+ +-------+---+---+ +---+---+ | | | +---+---+ + +-------+ +-------+---+---+ | metoprolol succinate | Given | 05/19/20 | 25 mg | | | | (TOPROL-XL) ER tablet 25 mg 25 | | 19 8:19 | | | | | mg, Oral, DAILY, First dose on | | AM PDT | | | | | Tue05/18/19 at 1245, Tablet may | | | | | | | be cut where scored but do not | | | | | | | crush., | | | | | | + +-------+ +-------+---+---+ +-------+ +-------+---+---+ | Given | 05/18/20 | 25 mg | | | | | 19 1:10 | | | | | | PM PDT | | | | +-------+ +-------+---+---+ +---+---+ | | | +---+---+ + +-------+ +-------+---+---+ | pantoprazole (PROTONIX) DR | Given | 05/19/20 | 40 mg | | | | tablet 40 mg 40 mg, Oral, DAILY | | 19 9:26 | | | | | BEFORE BREAKFAST, First dose on | | AM PDT | | | | | Sandra 05/17/19 at 0730, Indication: | | | | | | | Unknown, provider to assess | | | | | | + +-------+ +-------+---+---+ +-------+ +-------+---+---+ | Given | 05/18/20 | 40 mg | | | | | 19 10:43 | | | | | | AM PDT | | | | +-------+ +-------+---+---+ | Given | 05/17/20 | 40 mg | | | | | 19 6:45 | | | | | | AM PDT | | | | +-------+ +-------+---+---+ +---+---+ | | | +---+---+ + +---------+ +--------+-------+---+ | sodium chloride 0.9% (NS) bolus | New Bag | 05/16/20 | 1,000 | 500 | | | 1,000 mL 1,000 mL, Intravenous, | | 19 1:11 | mLs | mL/hr | | | Administer over 2 Hours, ONCE, | | PM PDT | | | | | 05/16/19 at 1300, For 1 dose | | | | | | + +---------+ +--------+-------+---+ +---+---+ | | | +---+---+ + +---------+ +---+ +---+ | sodium chloride 0.9% (NS) | New Bag | 05/16/20 | | 75 mL/hr | | | infusion at 75 mL/hr, | | 19 8:27 | | | | | Intravenous, CONTINUOUS, Starting | | PM PDT | | | | | 05/16/19 at 1900 | | | | | | + +---------+ +---+ +---+ +---+---+ | | | +---+---+ documented in this encounter
--- OUTSIDE RECORDS SUMMARY | ~2020-05-18 | XMS | Encounter Summary ---
Demographics + + + | Address | [address] | | | [place] [address] | + + + | Home Phone | | + + + | Preferred Language | Unknown | + + + | Marital Status | | + + + | Faith Affiliation | 1041 | + + + | Race | White | + + + | Ethnic Group | Not or | + + + Author + + + | Author | [facility] | | | and [place] | + + + | Organization | [facility] | | | and [place] | + + + | Address | Unknown | + + + | Phone | Unavailable | + + + Support + + + + + | Name | Relationship | Address | Phone | + + + + + | Tera Mccarthy | ECON | [place] | | | | | [address] | | + + + + + | Alicia Mccarthy | ECON | [address] | | | | | [place] [address] | | + + + + + Care Team Providers + +------+ + | Care Manager Foreign Name | Role | Phone | + [...] | | | | | | | ([facility]) | | | | | | | Facial droop | | | | | | | 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, | | | | | | | left ([facility]) | | | | | | | Cerebrovascu | | | | | | | lar accident | | | | | | | (CVA), | | | | | | | unspecified | | | | | | | mechanism | | | | | | | ([facility]) | | | | | | | | | | +--------+--------+ + + + + Encounter Details +--------+ + + + + | Date | Type | Department | Care Team | Description | +--------+ + + + + | 05/16/ | Hospital | [facility] | Colin Dumont MD | Cerebrovascular | | 2019 - | Encounter | [facility] | [address] | accident (CVA), | | | | CARE FLOOR [address] | [place], [place] | unspecified | | 05/19/ | [address] | [address] | mechanism (HCC) | | 2019 | | [place], [place] | [phone] | (Primary Dx); Facial | | | | [address] | | droop; Vertebral | | | | [phone] | Robb Echols MD | artery dissection | | | | | [address] | (HCC); Carotid | | | | | [place] [address] | aneurysm, left (HCC) | | | | | [phone] | | | | | | | | | | | | Daron Draper MD [address] | | | | [address] | | | | | | [place] [address] | | | | | | [phone] | | | | | | | [...] note might be different from nicole aaron. [facility] Service: Hospitalist Discharge Summary Date of Admission: 05/16/2019 Date of Discharge: 05/19/2019 Discharge Physician: Daron Draper MD Treatment Team: Mauricio Centeno MD; Sammie Reese MD Discharge Diagnoses: Principal Problem: Acute CVA (cerebrovascular accident) Active Problems: Benign essential hypertension Coronary artery disease involving [place] coronary artery of [place] heart Chronic cough History of CEA (carotid [...] Confirmed by MUSE READ ONLY, -COMPUTER ([id number]), sound editor Chente Babb ([id number]) on 9 4:00:38 [...] slurring of speech. He usually goes to [facility] for his left wrist and at [...] of carotid artery PAD (peripheral artery disease) ([facility]) Polycythemia vera ([facility]) 2016 Renal stone Sciatica Sinusitis Chronic Trigeminy [...] file. Follow up: Matias Muñoz MD [address] [address] Schedule an appointment as soon as possible for a visit in 2 weeks Sammie Reese MD [address] [facility] [address] Schedule an appointment as soon as possible [...] Everywhere.High Blood Pres sure (Hypertension), Discharge Instructions (Egyptian)Stroke and High Blood Pressure, Underst anding the Link Between (Egyptian)Atorvastatin tablets (Egyptian)Clopidogrel tablets (Egyptian) documented in this encounter Medications at Time [...] might be different from th e original. [facility] Service:hospitalist Progress Note Hospital Day: LOS: 2 [...] Benign essential hypertension Coronary artery disease involving [place] coronary artery of [place] heart Chronic cough History of CEA (carotid [...] Daron Carmona MD - 8:32 AM PDT [facility] Service:hospitalist Progress Note Hospital Day: LOS: 1 [...] Benign essential hypertension Coronary artery disease involving [place] coronary artery of [place] heart Chronic cough History of CEA (carotid [...] Echols MD - 05/16/2019 4:54 PM PDT [facility] Service: Hospitalist Admission History & Physical Date [...] heart disease) Atherosclerosis Benign essential hypertension Bronchiectasis ([facility]) Mild , lower lobes CAD (coronary artery disease) Coronary artery disease Glucose intolerance (impaired glucose tolerance) 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 3. No ac [place] intracranial findings. 4. Aspects score is 10. Signed by: Jay Jay Tna Edward Sign Adalberto e/Time: 05/16/2019 2:54 PM EKG, personally reviewed Normal sinus rhythm, 61 bpm, QTC 410, there is ST elevation on V1 and V2. This is similar to 05/2018. PROBLEM LIST Principal Problem: Facial droop Active Problems: Benign essential hypertension Coronary artery disease involving [place] coronary artery of [place] heart Chronic cough History of CEA (carotid [...] for any arrhythmia. Echocardiogram with bubble study. PT/OT/FIRE RANGER consultation. Consulted Dr. 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 Hyperlipidemia Hyperlipidemia Hypertension Myalgia s/p lovastatin + meningitis Nasal and sinus discharge Occlusion of carotid artery PAD (peripheral artery disease) ([facility]) Polycythemia vera ([facility]) 2016 Renal stone Sciatica Sinusitis Chronic Trigeminy [...] CV: No peripheral edema, rate regular SKIN: [place], warm, dry without rash/lesion MS: ROM not limited, no digital cyanosis, normal gait NEURO: Conversant, A&O times 3 PSYCH: appropriate affect, speech and tone, judgement and insight intact Vascular: Equal strength and sensation bilaterally. Left facial droop DATA PROBLEM LIST Principal Problem: Facial droop Active Problems: Benign essential hypertension Coronary artery disease involving [place] coronary artery of [place] heart Chronic cough History of CEA (carotid [...] fever 03/16/2013 Unknown Coronary artery disease involving [place] coronary artery of [place] heart 03/16/2013 Yes Ventricular pre-excitation 03/16/2013 Unknown [...] PAD (peripheral artery disease) (HCC) Polycythemia vera ([facility]) 2016 Renal stone Sciatica Sinusitis Chronic Trigeminy [...] note might be different from panda aaron. [facility] Department of Emergency Medicine 16:12 Pt Room: [...] of carotid artery PAD (peripheral artery disease) ([facility]) Polycythemia vera ([facility]) 2016 Renal stone Sciatica Sinusitis Chronic Trigeminy [...] Time: 1305 Rate: 61 Rhythm: Normal sinus [place]: Normal Intervals: ME 226, QRS 110 ST: [address] [...] impression: Cerebrovascular accident (CVA), unspecified mechanism (HCC) [[id number]] Clinical impression: Facial droop [[id number]] Clinical impression: Vertebral artery dissection (HCC) [[id number]] Clinical impression: Carotid aneurysm, left (HCC) [[id number]] Admitting provider: [facility]LESTINE HOSPITALIST [[id number]] Expected patient class: Inpatient [101] Level of service: Neuro Telemetry: Telemetry Discharge Medications: Procedures Colin Dumont MD 05/16/19 1612 an Ocasio RN - 05/16/2019 12:43 PM PDTBed: VCA03 Expected date: Expected time: Means of arrival: Comments: 40, Simon Mccarthy, slurred speech starting yesterday. Coming from clinic, refused to go to [facility] ED. P M PDTdocumented in this encounter [...] activities with handout provided for HEP at [facility] with CGA. Pt with some deficits for [...] Bed Mobility Supine to Sit, Level of [place]: independent Sit to Supine, Level of [place]: independent Transfers Sit-Stand, Level of [place]: independent Stand-Sit, Level of [place]: independent [id number], Assistive Device: none Gait Level of [place]: independent Assistive Device: none Distance (feet): 500 Stairs Number of Stairs: 11 Handrail Location: right side (ascending) Level of [place]: supervised Assistive Device: none Technique Used: step [...] contributors. Stair Goal STG Status: discontinued STG [place] Level: independent STG Assistive Device: none STG [...] ed by spouse) Pharmacy/Medication Needs: other (see comments)([facility]) Initial Plan Anticipated Discharge Disposition: home [...] lan of Enrique - Gracia Bailey MS CCC-FIRE RANGER - 05/17/2019 9:55 AM PDTSpeech Therapy Bedside [...] only) for 7 days PT reassessment due [facility] Review Date: 05/24/19 Next visit information: 05/17, Stroke Summary: PT Visit Summary: Patient presents to [facility] for a R centrum semiovale CVA with [...] Device: none Supine to Sit, Level of [place]: independent Transfers Sit-Stand, Level of [place]: independent Stand-Sit, Level of [place]: independent [id number], Assistive Device: none Gait Level of [place]: independent Assistive Device: none Distance (feet): 450 Stairs Number of Stairs: 4 Handrail Location: both sides Level of [place]: supervised Assistive Device: none Technique Used: step over step (ascending), step to step (descending) Safety Issues: balance decreased during turns Impairments: impaired balance Balance Balance Additional Documentation: Tinetti (group) Strength Strength Testing Results: no strength deficits were identified Goals Reflects last filed data and may be from multiple contributors. Stair Goal STG Status: new STG [place] Level: independent STG Assistive Device: none STG [...] [address] | | | | | | [place] [address] | | | | | | [phone] | | | | | | | [...] | | | POC | performed at [facility];[address] | | LABORATORY | | | | [address];[place] | | | | | | [address] | | | | + + + + + + + + | Specimen | + + | | + + + + + + + | Performing | Address | City/State/Zipcode | Phone Number | | Organization | | | | + + + + + | [facility] | [address] | [place] [address] | [phone] | + + + + + POC Glucose (05/17/2019 5:22 PM PDT) + + + + + + | Component | Value | Ref Range | Performed | Pathologist | | | | | At | Signature | + + + + + + | Glucose, | 79Comment: Testing | 65 - 99 mg/dL | [facility] | | | POC | performed at [facility];[address] | | LABORATORY | | | | [address];[place] | | | | | | [address] | | | | + + + + + + + + | Specimen | + + | | + + + + + + + | Performing | Address | City/State/Zipcode | Phone Number | | Organization | | | | + + + + + | [facility] | [address] | [place] [address] | [phone] | + + + + + POC Glucose (05/17/2019 12:02 PM PDT) + + + + + + | Component | Value | Ref Range | Performed | Pathologist | | | | | At | Signature | + + + + + + | Glucose, | 96Comment: Testing | 65 - 99 mg/dL | [facility] | | | POC | performed at [facility];[address] | | LABORATORY | | | | [address];[place], [place] | | | | | | [address] | | | | + + + + + + + + | Specimen | + + | | + + + + + + + | Performing | Address | City/State/Zipcode | Phone Number | | Organization | | | | + + + + + | [facility] | [address] | [place] [address] | [phone] | + + + + + [place] [...] | | | POC | performed at [facility];[address] | | LABORATORY | | | | [address];[place] | | | | | | [address] | | | | + + + + + + + + | Specimen | + + | | + + + + + + + | Performing | Address | City/State/Zipcode | Phone Number | | Organization | | | | + + + + + | [facility] | [address] | [place] [address] | [phone] | + + + + + Magnesium (05/17/2019 4:25 AM PDT) + + + + + + | Component | Value | Ref Range | Performed | Pathologist | | | | | At | Signature | + + + + + + | Magnesium | 2.0Comment: Testing | 1.7 - 2.4 mg/dL | [facility] | | | | performed at [facility], [address] | | LABORATORY | | | | [address], | | | | | | [place] [address] | | | | + + + + + + + + | Specimen | + + | Blood | + + + + + + + | Performing | Address | City/State/Zipcode | Phone Number | | Organization | | | | + + + + + | [facility] | [address] | [place] [address] | [phone] | + + + + + Phosphorus (05/17/2019 4:25 AM PDT) + + + + + + | Component | Value | Ref Range | Performed | Pathologist | | | | | At | Signature | + + + + + + | Phosphorus | 2.6Comment: Testing | 2.3 - 4.8 mg/dL | [facility] | | | | performed at [facility], [address] | | LABORATORY | | | | [address], | | | | | | [place] [address] | | | | + + + + + + + + | Specimen | + + | Blood | + + + + + + + | Performing | Address | City/State/Zipcode | Phone Number | | Organization | | | | + + + + + | [facility] | [address] | [place] [address] | [phone] | + + + + + Hemoglobin A1C (05/17/2019 4:25 AM PDT) + + + + + + | Component | Value | Ref Range | Performed | Pathologist | | | | | At | Signature | + + + + + + | Hemoglobin | 5.6Comment: HbA1c method | 4.0 - 6.0 % | [facility] | | | A1c | is certified [...] | | | | | performed at [facility], [address] | | | | | | [facility], | | | | | | [place] [address] | | | | + + + + + + + + | Specimen | + + | Blood | + + + + + + + | Performing | Address | City/State/Zipcode | Phone Number | | Organization | | | | + + + + + | [facility] | [address] | [place] [address] | [phone] | + + + + + CBC [...] | | | Absolute | performed at [facility], [address] | K/uL | LABORATORY | | | | [address], | | | | | | [place] [address] | | | | + + + + + + + + | Specimen | + + | Blood | + + + + + + + | Performing | Address | City/State/Zipcode | Phone Number | | Organization | | | | + + + + + | [facility] | [address] | [place] [address] | [phone] | + + + + + Basic [...] | | | | | | MDRD [facility] traceable | | | | | | equation.Testing | | | | | | performed at [facility], [address] | | | | | | [facility], | | | | | | [place] [address] | | | | + + + + + + + + | Specimen | + + | Blood | + + + + + + + | Performing | Address | City/State/Zipcode | Phone Number | | Organization | | | | + + + + + | [facility] | [address] | [place] [address] | [phone] | + + + + + POC [...] | | | POC | performed at [facility];[address] | | LABORATORY | | | | [address];[place], [place] | | | | | | [address] | | | | + + + + + + + + | Specimen | + + | | + + + + + + + | Performing | Address | City/State/Zipcode | Phone Number | | Organization | | | | + + + + + | [facility] | [address] | [place] [address] | [phone] | + + + + + MRI [...] (500), | | | | | | sound editor Chente Babb | | | | [...] | | | Calculated | performed at [facility], [address] | | LABORATORY | | | | [address], | | | | | | [place] [address] | | | | + + + + + + + + | Specimen | + + | Blood | + + + + + + + | Performing | Address | City/State/Zipcode | Phone Number | | Organization | | | | + + + + + | [facility] | [address] | [place] [address] | [phone] | + + + + + Troponin [...] at | | | | | | [facility];[address] [facility] | | | | | | [facility];[place] [address] | | | | + + + + + + + + | Specimen | + + | Blood | + + + + + + + | Performing | Address | City/State/Zipcode | Phone Number | | Organization | | | | + + + + + | [facility] | [address] | [place] [address] | [phone] | + + + + + Comprehensive [...] | | | | | | MDRD [facility] traceable | | | | | | equation.Testing | | | | | | performed at [facility];[address] | | | | | | [facility];[place], [place] | | | | | | [address] | | | | + + + + + + + + | Specimen | + + | Blood | + + + + + + + | Performing | Address | City/State/Zipcode | Phone Number | | Organization | | | | + + + + + | [facility] | [address] [facility] | [place] [address] | [phone] | + + + + + CBC [...] 0.04Comment: Testing | 0.00 - 0.10 | [facility] | | | Absolute | performed at [facility];[address] | K/u[address] | LABORATORY | | | | [address];[place] | | | | | | [address] | | | | + + + + + + + + | Specimen | + + | Blood | + + + + + + + | Performing | Address | City/State/Zipcode | Phone Number | | Organization | | | | + + + + + | [facility] | [address] | [place] [address] | [phone] | + + + + + documented [...] + + | Coronary artery disease involving [place] coronary artery of [place] heart | + + | History of [...]
--- OUTSIDE RECORDS SUMMARY | ~2020-05-18 | XMS | Encounter Summary ---
Demographics + + + | Address | [address] | | | [place] [address] | + + + | Home Phone | | + + + | Preferred Language | Unknown | + + + | Marital Status | | + + + | Presybeterian Affiliation | 1041 | + + + | Race | White | + + + | Ethnic Group | Not or | + + + Author + + + | Author | [facility] | | | and [place] | + + + | Organization | [facility] | | | and [place] | + + + | Address | Unknown | + + + | Phone | Unavailable | + + + Support + + + + + | Name | Relationship | Address | Phone | + + + + + | Tera Mccarthy | ECON | [place], [place] | | | | | [address] | | + + + + + | Alicia Mccarthy | ECON | [address] | | | | | [place] [address] | | + + + + + Care Team Providers + +------+ + | Care French Binder Name | Role | Phone | + +------+ + | Brittany Meehan MD | PCP | | + +------+ + Reason for Visit +--------+--------+ + | Reason | Onset | Comments | | | Date | | +--------+--------+ + | Other | 05/23/ | Reminded patient to bring meds. | | | 2018 | | +--------+--------+ + Encounter Details +--------+ + + + + | Date | Type | Department | Care Team | Description | +--------+ + + + + | 05/23/ | Telephone | [facility] | Socorro Toney | Other (Reminded | | 2018 | | CARDIOLOGY ELLEN [place]o, Motor Assembly Supervisor | patient to bring | | | | [address] | | meds. ) | | | | [address] | | | | | | [address] | | | | | | [phone] | | | +--------+ + + + [...] Miscellaneous Notes Telephone Encounter - Socorro Toney, Motor Assembly Supervisor - 05/23/2019 9:29 AM PDTCalled patient to remind them of their appointment, patient did not answer, so I left a detailed m essage asking them to bring their medications in the original bottles, and to call us back i f they have any questions. We expect to see them for their scheduled time. JDW:BASIC COMBATANT SWIMMER-AAMA. [facility] umented in this encounter Plan of Treatment +--------+---------+ + + + | Date | Type | Specialty | Care Team | Description | +--------+---------+ + + + | 06/25/ | Office | Cardiology | Connie Alvarez | | | 2019 | Visit | | [address] | | | | | | [address] | | | | | | [place] [address] | | | | | | [phone] | | | | | | | | +--------+---------+ + + + documented as of this encounter Visit Diagnoses Not on filedocumented in this encounter"
--- OUTSIDE RECORDS SUMMARY | ~2020-05-18 | XMS | Encounter Summary ---
Demographics + + + | Address | [address] | | | [place] [address] | + + + | Home Phone | | + + + | Preferred Language | Unknown | + + + | Marital Status | | + + + | Zoroastrian Affiliation | 1041 | + + + | Race | White | + + + | Ethnic Group | Not or | + + + Author + + + | Author | [facility] | | | and [place] | + + + | Organization | [facility] | | | and [place] | + + + | Address | Unknown | + + + | Phone | Unavailable | + + + Support + + + + + | Name | Relationship | Address | Phone | + + + + + | Tera Mccarthy | ECON | [place], [place] | | | | | [address] | | + + + + + | Alicia Mccarthy | ECON | [address] | | | | | [place] [address] | | + + + + + Care Team Providers + +------+ + | Care Wet Primer Powder Blender Name | Role | Phone | + +------+ + | Brittany Meehan MD | PCP | | + +------+ + Reason for Visit + + + | Reason | Comments | + + + | Consultation | | + + + Encounter Details +--------+---------+ + + + | Date | Type | Department | Care Team | Description | +--------+---------+ + + + | 09/05/ | Office | [facility] | Cornel Sibley | Supraventricular | | 2019 | Visit | CARDIOLOGY [place] | MD [address] | tachycardia (HCC) | | | | [address] | (Primary Dx); First | | | | [place], [place] | [place] [address] | degree | | | | [address] | [phone] | atrioventricular | | | | [phone] | | block | +--------+---------+ + + + Social History [...] + + + | Blood Pressure | 106/70 | 09/05/2019 11:15 AM | | | | | PST | | + + + + + | Pulse | 68 | 09/05/2019 11:15 AM | | | | | PST | | + + + + + | Temperature | - | - | | + + + + + | Respiratory Rate | 16 | 09/05/2019 11:15 AM | | | | | PST | | + + + + + | Oxygen Saturation | 97% | 09/05/2019 11:15 AM | | | | | PST | | + + + + + | Inhaled Oxygen | - | - | | | Concentration | | | | + + + + + | Weight | 77.6 kg (171 lb) | 09/05/2019 11:15 AM | | | | | PST | | + + + + + | Height | 175.3 cm (5' 9") | 09/05/2019 11:15 AM | | | | | PST | | + + + + + | Body Mass Index | 25.25 | 09/05/2019 11:15 AM | | | | | PST | | + + + + + [...] of this encounter Patient Instructions Patient Instructions Cornel Sibley MD - 09/05/2019 11:00 AM PSTStop Toprol XL 5 days prior to procedure documented in this encounter Progress Notes Cornel Sibley MD - 09/05/2019 11:00 AM PSTFormatting of this note might be dif ferent from the original. Subjective: Referring MD: No ref. provider found Chief Complaint Patient presents with Consultation HPI: This is a 79 y.o. male who presents today for an initial evaluation of palpitations. Mr. Mccarthy reports he has noted sudden increases in his heart rate lasting for several minut es on and off for the past several months. He was seen by cardiology and an outpatient [facility] suggested episodes of a supraventricular tachycardia between 120 and 130 bpm. He will o ften perform a Valsalva maneuver during episodes to terminate the dysrhythmia. 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 He reports his Toprol-XL was increased from 50 to 100 mg daily. He has no shamika some dizziness and occasional lightheadedness since increasing the dose of the medicatio n. He believes he had an episode of the palpitations when walking into the office today. Garland cifuentes was also recently found to have a large renal stone and is considering lithotripsy in the near future. He continues to do his usual activity without any new limitations or symptoms. He denies any current chest pain, shortness of breath, or recent syncope. 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 Hyperlipidemia Hypertension Myalgia s/p lovastatin + meningitis Nasal and sinus discharge PAD (peripheral artery disease) ([facility]) Polycythemia vera ([facility]) 2016 Renal stone on imaging Sciatica Sinusitis Chronic Stroke ([facility]) Trigeminy Past Surgical History: Procedure Laterality Date CARDIAC CATHERIZATION 06/2009 LM 60-70% distal, LAD 95% mid-distal, D1 70% ostial, Cx 90% mid, RI ostial stenosis, RCA 6 0% mid, PDA 90% COLONOSCOPY CORONARY ARTERY BYPASS GRAFT 2008 6 vessel/ RLE veing harvest CORONARY ARTERY BYPASS GRAFT Event Monitor 06/2019 15 days: NSR 51-130 (68), occ PVC, SVT runs (longest 3-4 min), triggers with NSR EYE SURGERY L and R CEA 2009 NASAL SEPTUM SURGERY OTHER SURGICAL HISTORY CATARACT EXTRACTION TONSILLECTOMY AND ADENOIDECTOMY TRANSTHORACIC ECHOCARDIOGRAM 04/2019 EF 75%, mild (mean 8, 1.87), tr AI, tr MR, tr TR, Ao 4.37, nl RVSP Family History Problem Relation Age of Onset Coronary artery disease Mother * Mother DJD High cholesterol Mother Hypertension Mother Kidney disease Brother * Brother AAA Social History Socioeconomic History Marital status: Spouse name: Not on file Number of children: Not on file Years of education: Not on file Highest education level: Not on file Tobacco Use Smoking status: Never Smoker Smokeless tobacco: Former User Types: Chew Substance and Sexual Activity Alcohol use: Not Currently Comment: Alcoholic Drinks/day: occasionally Drug use: No Comment: Drug use: No Review of Systems: Ten system review negative unless noted in HPI. Current Outpatient Medications Medication Sig Dispense Refill clopidogrel (PLAVIX) 75 mg tablet Take 1 tablet by mouth Daily. 90 tablet 3 fluticasone (FLONASE) 50 mcg/nasal spray 1 spray by Nasal route Daily. fluticasone-salmeterol (ADVAIR, WIXELA INHUB) 250-50 mcg/puff diskus inhaler Inhale 1 p uff into the lungs 2 (two) times daily. losartan (COZAAR) 50 mg tablet Take 1 tablet by mouth nightly. 90 tablet 3 metoprolol succinate (TOPROL-XL) 50 mg 24 hr tablet Take 1 tablet by mouth Daily. 90 ta blet 3 raNITIdine (ZANTAC) 150 mg tablet Take 150 mg by mouth Daily. No current facility-administered medications for this visit. Allergies Allergen Reactions Penicillins Rash Statins Other (See Comments) Cramping in the legs, muscle weakness Pravastatin Other (See Comments) Objective: Vitals: 09/05/19 1115 BP: 106/70 Pulse: 68 Resp: 16 Weight: 77.6 kg (171 lb) Height: 1.753 m (5' 9") Body mass index is 25.25 kg/m. Exam: General: Patient is alert, pleasant, cooperative, and in no acute distress. Eyes: Sclerae anicteric. Ears: External ears normal. Nose: External nose normal. Oral exam: No oral lesions noted. Neck: Trachea midline. No thyromegaly. No elevation of jugular venous pressure. No flores tid bruits. Lungs: Clear to auscultation bilaterally. No wheezes, rales, or rhonchi. Heart: Regular rate and rhythm. Normal S1/S2. No murmurs, gallops, rubs. Abdomen: Bowel sounds present. Soft, nondistended. No masses or hepatosplenomegaly noted . No significant tenderness noted. Extremities: No clubbing or cyanosis noted. No lower extremity edema noted. Pulses: Intact bilateral radial and pedal pulses. Musculoskeletal: No obvious arthritic change noted of the knees. Skin: Warm and dry. Psychiatric: Patient is alert and oriented to person, place, and day. Mood and affect nor mal. Neurological: Patient is intact to light touch in the upper and lower extremities bilateral ly. Review of studies: ECG: Normal sinus rhythm at 62 bpm, first-degree AV block, no significant change from 2018 Impression/Plan: Simon was seen today for consultation. Diagnoses and all orders for this visit: Supraventricular tachycardia (HCC) - ECG 12 lead - metoprolol succinate (TOPROL-XL) 50 mg 24 hr tablet; Take 1 tablet by mouth Daily. - Case Request - CV/EP LAB: CV EP ABLATION SVT First degree atrioventricular block - ECG 12 lead Other orders - Vital signs; Standing - Pulse oximetry, continuous; Standing - Cardiac telemetry; Standing - Diet NPO; strict NPO; Effective Now; Standing - ECG 12 lead; Standing - Void health occupations instructor to [place]; Standing - Skin prep; Standing - sodium chloride 0.9% (NS) infusion - Basic Metabolic Panel; Standing - CBC with Differential; Standing 1) Supraventricular tachycardia - Mr. Mccarthy has noted episodes of sudden increases in his heart rate on and off for the past several months. He wore a electronic device monitor through cardio logy and episodes of a supraventricular tachycardia between 120 and 130 bpm were noted. A s hort RP supraventricular tachycardia was suggested on review of the monitor strips. Given h is first-degree AV block it is possible that slowing of his AV oseas conduction has allowed a slow pathway to become more prominent. We discussed treatment options for his possible re entrant supraventricular tachycardia. We discussed continued observation versus continued m edical therapy with beta-blockade versus electrophysiology study and possible ablation. Aft er reviewing the risks and benefits of each approach she would like to proceed with electrop hysiology study and possible ablation. He is aware of the slight increased risk of needing a pacemaker given his slowed AV oseas conduction with first-degree AV block. An echocardiog sonido performed earlier this year demonstrated normal left ventricular function. Given some o ccasional dizziness and lightheadedness since increasing the Toprol-XL, he will decrease Top rol-XL to 50 mg daily. He will stop the medication 5 days prior to his procedure. 2) First degree AV block - He has a history of a first-degree AV block. He is aware of the slight increased risk for needing a pacemaker if his AV oseas conduction does not remain ad equate following potential slow pathway modification. This encounter was dictated with voice recognition software and may contain inadvertent rec ognition errors. documented in this encounter Plan of Treatment +--------+---------+ + + + | Date | Type | Specialty | Care Team | Description | +--------+---------+ + + + | 06/25/ | Office | Cardiology | Connie Alvarez | | | 2019 | Visit | | [address] | | | | | | [address] | | | | | | [place] [address] | | | | | | [phone] | | | | | | | | +--------+---------+ + + + documented as of this encounter Procedures + +--------+ + + + | Procedure Name | Priori | Date/Time | Associated Diagnosis | Comments | | | ty | | | | + +--------+ + + + | ECG 12 LEAD | Routin | 09/05/2019 | Supraventricular | Results for this | | | e | 11:23 AM | tachycardia (HCC) | procedure are in the | | | | PST | First degree | results section. | | | | | atrioventricular | | | | | | block | | + +--------+ + + + documented in this encounter Results ECG 12 lead (09/05/2019 11:23 AM PST) + + + + + + | Component | Value | Ref Range | Performed | Pathologist | | | | | At | Signature | + + + + + + | VENTRICULAR | 62 | BPM | [facility] | | | RATE EKG | | | | | + + + + + + | ATRIAL RATE | 62 | BPM | [facility] | | + + + + + + | P-R | 242 | ms | [facility] | | | INTERVAL | | | | | + + + + + + | QRS | 104 | ms | [facility] | | | DURATION | | | | | + + + + + + | Q-T | 394 | ms | [facility] | | | INTERVAL | | | | | + + + + + + | Q-T | 399 | ms | [facility] | | | INTERVAL | | | | | | (CORRECTED) | | | | | + + + + + + | P WAVE AXIS | 16 | degrees | [facility] | | + + + + + + | QRS AXIS | 7 | degrees | [facility] | | + + + + + + | T AXIS | 47 | degrees | [facility] | | + + + + + + | INTERPRETAT | Please refer to | | [facility] | | | ION TEXT | Providers office visit | | | | | | note for Providers | | | | | | Interpretation.Confirmed | | | | | | by [facility] Dora Read Only, | | | | | | [facility] Romina ([id number]), | | | | | | non linear editor Tate Lozano | | | | | | ([id number]) on 09/05/2019 | | | | | | 12:03:50 PM | | | | + + [...] + | Diagnosis | + + | Supraventricular tachycardia (HCC) - Primary Other specified cardiac dysrhythmias | + + | First degree atrioventricular block | + + documented in this encounter
--- OUTSIDE RECORDS SUMMARY | ~2020-05-18 | XMS | Encounter Summary ---
Demographics + + + | Address | [address] | | | [place] [address] | + + + | Home Phone | | + + + | Preferred Language | Unknown | + + + | Marital Status | | + + + | Mandaen Affiliation | 1041 | + + + | Race | White | + + + | Ethnic Group | Not or | + + + Author + + + | Author | [facility] | | | and [place] | + + + | Organization | [facility] | | | and [place] | + + + | Address | Unknown | + + + | Phone | Unavailable | + + + Support + + + + + | Name | Relationship | Address | Phone | + + + + + | Tera Mccarthy | ECON | [place], [place] | | | | | [address] | | + + + + + | Alicia Mccarthy | ECON | [address] | | | | | [place] [address] | | + + + + + Care Team Providers + +------+ + | Care Flame Cutting Machine Operator Name | Role | Phone | + +------+ + | Matias Muñoz MD | PCP | | + +------+ + Reason for Visit +--------+--------+ + | Reason | Onset | Comments | | | Date | | +--------+--------+ + | Other | 07/06/ | | | | 2012 | | +--------+--------+ + Encounter Details +--------+ + + + + | Date | Type | Department | Care Team | Description | +--------+ + + + + | 07/06/ | Telephone | [facility] | Ivette Torrez, | Other | | 2012 | | PULMONARY [address] | RN | | | | | [place], | | | | | | [place] [address] | | | | | | [phone] | | | +--------+ + + + [...] this encounter Miscellaneous Notes Telephone Encounter - Lio Mendez MD - 07/06/2013 4:[address] scan of the chest without contrast. elephone Encounter - Ivette Torrez, RN - 07/06/2013 2:[address] at the request of Dr Mendez to ask if he desired a sooner follow up as a progress note was sent from Dr Muñoz. Simon states that he is interested in having a chest CT and follow up. Would you like that with or without contrast? Will order. documented in this encounter Plan of Treatment +--------+---------+ + + + | Date | Type | Specialty | Care Team | Description | +--------+---------+ + + + | 06/25/ | Office | Cardiology | Connie Alvarez | | | 2019 | Visit | | [address] | | | | | | [address] | | | | | | [place] [address] | | | | | | [phone] | | | | | | | | +--------+---------+ + + + documented as of this encounter Visit Diagnoses Not on filedocumented in this encounter"
--- OUTSIDE RECORDS SUMMARY | ~2020-05-18 | XMS | Encounter Summary ---
Demographics + + + | Address | [address] | | | [place] [address] | + + + | Home Phone | | + + + | Preferred Language | Unknown | + + + | Marital Status | | + + + | Hindu Affiliation | 1041 | + + + | Race | White | + + + | Ethnic Group | Not or | + + + Author + + + | Author | [facility] | | | and [place] | + + + | Organization | [facility] | | | and [place] | + + + | Address | Unknown | + + + | Phone | Unavailable | + + + Support + + + + + | Name | Relationship | Address | Phone | + + + + + | Tera Mccarthy | ECON | [place] | | | | | [phone] | | + + + + + | Alicia Mccarthy | ECON | [address] | | | | | [place] [address] | | + + + + + Care Team Providers + +------+ + | Care Carpenter Labor Supervisor Name | Role | Phone | [...] | | | | Diagnoses | | Maryjo | | | | | | | Cornel | | | | | Supraventric | | MD Viktor | | | | | vanessa | | [address] | | | | | jamal | | [address] | | | | | ([facility]) | | [place] | | | | | Procedures | | [id number] Phone: | | | | | CV EP | | [phone] | | | | | ABLATION SVT | | Fax: | | | | | | | [phone] | +--------+--------+ + + + + Encounter Details +--------+---------+ + + + | Date | Type | Department | Care Team | Description | +--------+---------+ + + + | 10/11/ | Surgery | [facility] | Cornel Bass | CV EP ABLATION SVT | | 2020 | | [facility] | MD Viktor [address] | | | | | LAB [address] | [place] | | | | | [place], [place] | [place] [address] | | | | | [address] | [phone] | | | | | [phone] | | | +--------+---------+ + + + [...] + + + | Blood Pressure | 133/81 | 10/11/2019 3:57 PM | | | | | PST | | + + + + + | Pulse | 92 | 10/11/2019 3:57 PM | | | | | PST | | + + + + + | Temperature | 36.2 C (97.1 F) | 10/11/2019 1:43 PM | | | | | PST | | + + + + + | Respiratory Rate | 16 | 10/11/2019 3:57 PM | | | | | PST | | + + + + + | Oxygen Saturation | 100% | 10/11/2019 3:57 PM | | | | | PST | | + + + + + | Inhaled Oxygen | - | - | | | Concentration | | | | + + + + + | Weight | 77 kg (169 lb 12.1 | 10/11/2019 1:43 PM | | | | oz) | PST | | + + + + + | Height | 175.3 cm (5' 9") | 10/11/2019 1:43 PM | | | | | PST | | + + + + + | Body Mass Index | 25.02 | 10/11/2019 1:43 PM | | | | | PST | [...] documented as of this encounter Discharge Summaries Bhanu Lara RN - 10/12/2019 10:31 AM PSTReviewed discharge instructions with patient; jon ascencio is stable and has no questions. He is waiting for his son to arrive at the hospital a nd transport him home. He will notify his nurse when ready to leave. documented in this encounter Discharge Instructions Instructions MonroyJeanetteMARY ANN - 10/10/2019Formatting of this note might be differe nt from the original. Groin bandages may come off in shower at home the day after you get home from your proce dure - OK to shower today with dressings in place. Avoid scrubbing groin sites x3 days post procedure to prevent possible bleeding. No bath s (showers only) for one week - we don't want the puncture sites submerged under water - barbara wers are fine. No driving for three days - this allows the puncture sites to continue healing - OK to r esume driving TuesdayOctober 15. Resume your metoprolol 50 mg once per day. Continue all regular medications as usual. Restrict lifting to less than 10 pounds x1 week post procedure. OK to resume usual activ ities after 1 week. Be mindful of any arrhythmia recurrence. It is normal to have occasional extra heart dilia ts, but you should not have the very rapid heart rate anymore. If you do, please let us know . Routine follow up in electrophysiology clinic 3-4 weeks post-procedure. Please call our office if any issues arise prior to scheduled follow up! Discharge Instructions for Catheter Ablation You have had a procedure called catheter ablation. It wasused to treat an abnormal heartb eat (arrhythmia). This procedure destroyed (ablated) the cells in your heart that were causi ng your heart rhythm problem. During the procedure, the healthcare provider put a thin,fle xiblewire (catheter)into a blood vessel in your upper thigh. The provider then threaded it up to your heart. Home care Here are recommendations for care at home: You won't be able todrive yourself home because you had medicine to relax you (sedatio n) You will need to make arrangements for a ride. Your healthcare provider may tell you not todrive for 24 hours after the procedure. You should be able to go back to your normal daily activities in the next 1 to 2 days. T heseinclude walking, climbing stairs, and doing local driver. Don't do any heavy physical activity for several days after the procedure. This will all ow your body to heal. Ask your healthcare provider when you canreturn to work. Take your temperature and check your incision for signs of infection every day for a wee k. Signs of infection include redness, swelling, drainage, or warmth at the incision site. It is normal to have asmall bruise or lump where the catheter was inserted. Take your medicines exactly as directed. Don t skip doses. You may need to make some c hanges in your medicines because of the ablation procedure. Be sure to go over your medicine instructions with your healthcare provider before you are discharged. Learn to take your own pulse. Keep a record of your results. Ask your healthcare provide r which readings mean that you need medical attention. Don't lift heavy objects for a period of time after your ablation. Ask your healthcare p florinda for specific advice. Follow-up care Make a follow-up appointment as directed by your healthcare provider. Your provider will ch papa how your incision site is healing. In many cases, one ablation is enough to treat an arr hythmia. But sometimes the problem comes back or another is found. If this happens, you may need a second procedure. When to call your healthcare provider Call your healthcare provider right away if you have any of the following: Redness, pain, swelling, bleeding, or drainage from your incision Chest pain, shortness of breath, or dizziness Temperature of 100.4F (38.0C) or higher, or as directed by your healthcare provider Sudden coldness, pain, or numbness in the leg or arm with the insertion site Nausea or vomiting Note: Ask your healthcare provider what to expect about your heartbeat. Sometimes the irreg ularity goes away right after the procedure. Other times it may take longer to go away. Date Last Reviewed: 06/26/201619996293-3432 [employer]. [address] [place] [address], [place] [address]. All righ ts reserved. This information is not intended as a substitute for professional medical care. Always follow your healthcare professional's instructions. Recovery After Procedural Sedation (Adult) You have been given medicine by vein to make you sleep during your procedure. This may have included both a pain medicine and sleeping medicine. Most of the effects have worn off. But you may still have some drowsiness for the next 6 to 8 hours. Home care Follow these guidelines when you get home: For the next 8 hours, you should be watched by a responsible adult. This person should m roxana sure your condition is not getting worse. Don't drink any alcoholfor the next [address]. [address], operate dangerous machinery,make important business or personal decisions , or sign legal documentsduring the next 24 hours. Note: Your healthcare provider may tell you not to take any medicine by mouth for pain or s leep in the next 4 hours. These medicines may react with the medicines you were given in the hospital. This could cause a much stronger response than usual. Follow-up care Follow up with your healthcare provider if you are not alert and back to your usual level o f activity within 12 hours. When to seek medical advice Call your healthcare provider right away if any of these occur: Drowsiness gets worse Weakness or dizziness gets worse Repeated vomiting You can't be awakened Date Last Reviewed: 07/13/201619997369-3930 [employer]. [address] [place] [address]. All righ ts reserved. This information is [...] clopidogrel | Take 1 tablet by | 90 | 3 | 06/19/20 | | | (PLAVIX) 75 mg | mouth Daily. | tablet | | 19 | | | tablet | | | | | | + + + +---------+ + + | ezetimibe (ZETIA) | Take 1 tablet by | 30 | 11 | 09/12/20 | | | 10 mg tablet | mouth Daily. | tablet | | 19 | 0 | + + + +---------+ + + | fluticasone | 1 spray by Nasal | | 0 | | | | (FLONASE) 50 | route Daily. As | | | | | | mcg/nasal spray | needed | | | | | + + + +---------+ + + | | as needed Takes as | | 0 | 11/29/19 | | | fluticasone-salmeter | needed. | | | 19 | | | ol (SAMSON GENAO | | | | | | | WEST) 250-50 | | | | | | | mcg/puff diskus | | | | | | | inhaler | | | | | | + + + +---------+ + + | losartan (COZAAR) | Take 1 tablet by | 90 | 3 | 06/19/20 | | | 50 mg tablet | mouth nightly. | tablet | | 19 | 0 | + + + +---------+ + + | metoprolol | Take 1 tablet by | 90 | 3 | 09/05/20 | | | succinate | mouth Daily. | tablet | | 19 | 0 | | (TOPROL-XL) 50 mg 24 | | | | | | | hr | | | | | | | tabletIndications: | | | | | | | Supraventricular | | | | | | | tachycardia (HCC) | | | | | | + + + +---------+ + + | raNITIdine | Take 150 mg by mouth | | 0 | | | | (ZANTAC) 150 mg | Daily. | | | | 0 | | tablet | | | | | | + + + +---------+ + + documented as of this encounter Progress Notes Jeanette Monroy ARNP - 10/12/2019 7:25 AM PSTFormatting of this note might be differe nt from the original. 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 No events noted overnight. No report of chest pain, shortness of breath, or palpitations. He's maintained sinus rhythm post procedurally. Only complaint ove rnight was of L groin access site discomfort - he's been OOB and ambulatory since w/o issues or exacerbation. Bilateral groin sites CDI and free from swelling, bruising, oozing, hemato ma. He'll resume his Toprol XL 50 mg once daily and continue all regular medications without changes. Patient is stable and ready for discharge home today with EP clinic follow up vis it in 3-4 weeks. Medications (Current): Current Facility-Administered Medications Medication Dose Route Frequency Provider Last Rate Last Dose albuterol 2.5 mg/3 mL nebulizer solution 2.5 mg 2.5 mg Nebulization Once PRN Marcelo Camacho MD clopidogrel (PLAVIX) tablet 75 mg 75 mg Oral Daily Cornel Bass MD dextrose 50% injection 12.5-25 g 12.5-25 g Intravenous Q15 Min PRN Marcelo Camacho MD fentaNYL (PF) injection 25-50 mcg 25-50 mcg Intravenous Q5 Min PRN Mracelo Camacho MD 25 mcg at 10/12/19 07 labetalol (TRANDATE) 5 mg/mL injection 5 mg 5 mg Intravenous Q5 Min PRN Marcelo Camacho MD losartan (COZAAR) tablet 50 mg 50 mg Oral Nightly Cornel Bass MD 50 mg at 10/11/192005 meperidine (DEMEROL) injection 12.5-25 mg 12.5-25 mg Intravenous PRN Marcelo Camacho MD metoprolol succinate (TOPROL-XL) ER tablet 50 mg 50 mg Oral Daily Cornel dukes MD 50 mg at 10/11/19 1712 ondansetron (ZOFRAN) injection 4 mg 4 mg Intravenous Q4H PRN Marcelo Camacho MD Objective: Vital signs: Temp (24hrs), Av.8 C (98.2 F), Min:36.2 C (97.1 F), Max:37.1 C (98.7 F) Vitals: 10/11/19 1900 10/11/19 2006 10/11/19 2318 10/12/19 0355 BP: 165/85 153/77 117/61 112/61 Pulse: 68 61 67 62 Resp: 18 18 Temp: 37.1 C (98.7 F) 37.1 C (98.7 F) TempSrc: Oral Oral SpO2: 95% 96% 97% Weight: 76.9 kg (169 lb 6.8 oz) Height: Weight(s): Wt Readings from Last 4 Encounters: 10/12/19 76.9 kg (169 lb 6.8 oz) 09/12/19 77.6 kg (171 lb) 09/05/19 77.6 kg (171 lb) 08/15/19 76.7 kg (169 lb) Current Height: Ht Readings from Last 1 Encounters: 10/11/19 1.753 m (5' 9") BMI: Body mass index is 25.02 kg/m. Intake/Output last 3 shifts: Intake/Output Summary (Last 24 hours) at 10/12/2019 0819 Last data filed at 10/12/2019 0355 Gross per 24 hour Intake 1000 ml Output 50 ml Net 950 ml Labs: Lab Results Component Value Date NA 141 10/11/2019 K 4.2 10/11/2019 CL 106 10/11/2019 CO2 28 10/11/2019 BUN 15 10/11/2019 HGB 15.1 10/11/2019 WBC 5.74 10/11/2019 RBC 5.19 10/11/2019 PLT 209 10/11/2019 LACTATE 1.2 05/30/2019 INR 1.1 08/11/2019 PTT 28 08/11/2019 CKMB 0 05/31/2019 Physical Exam: General: well-developed, in no acute distress, pleasant, appears younger than given age Neck: no JVD, trachea midline Lungs: No increased WOB, casually conversational Chest/Heart: Equal chest rise and expansion, healed faint midline sternotomy scar noted - h eart regular rate and rhythm, Sr with known 1st degree AVB to tele events overbight Extremities: no clubbing, cyanosis, or edema Neuro: awake and alert with appropriate tone and coordination Groin sites: as above Telemetry: Sinus rhythm with baseline 1st degree AVB 60's at rest Assessment/Plan: Forwarded from Dr Bass's H&P and updated to reflect current status 1) Supraventricular tachycardia - Mr. Haynes noted episodes of sudden increases in his heart rate on and off for the past several months. He wore a desk monitor through card iology and episodes of a supraventricular tachycardia between 120 and 130 bpm were noted. A short RP supraventricular tachycardia was suggested on review of the monitor strips. Giv en his first-degree AV block it is possible that slowing of his AV oseas conduction has allo weda slow pathway to become more prominent. 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 We discussed continued observation ve rsus continued medical therapy with beta-blockade versus electrophysiology study and possibl e ablation. After reviewing the risks and benefits of each approach he opted to proceed wi th electrophysiology study and possible ablation completed yesterday - He was and is aware of the slight increased risk of needing a pacemaker given his slowed AV oseas conduction wi th first-degree AV block. An echocardiogram performed earlier this year demonstrated alfa l left ventricular function. Given some occasional dizziness and lightheadedness since inc reasing the Toprol-XL, he has decreased Toprol-XL to 50 mg daily and has been tolerating thi s well. Toprol XL was held 5 days prior to his procedure and has since been resumed given his hx CAD. 2) First degree AV block - Hehas a history of a first-degree AV block. He is aware of t he slight increased risk for needing a pacemaker if his AV oseas conduction does not remain adequate following potential slow pathway modification. Electronically signed by: MARY ANN Cates 10/12/2019 8:19 AM Associated attestation - Cornel Bass MD - 10/12/2019 9:29 AM PSTI have inte rviewed and examined this patient on 10/12/19 and agree with the findings and plan of the [facility] practice provider/house staff with further assessment and decision-making as noted he reafter. 79-year-old male with history of coronary artery disease status post CABG, carotid stenosis status post endarterectomy, hypertension, hypercholesterolemia who was admitted for electro physiology study given suggestion of supraventricular tachycardia on outpatient monitoring. 1) supraventricular tachycardia -patient with a recent history of palpitations and an outpa tient monitor suggestive of runs of a short RP supraventricular tachycardia -he elected to p roceed with electrophysiology study which demonstrated dual AV oseas physiology and occasion al atrial echo beats but a reentrant supraventricular tachycardia could not be induced/susta ined -slow pathway ablation was performed -runs of a left atrial tachycardia were suggested with Isuprel infusion -we will observe for any recurrent symptoms post procedure -wound care and restrictions were reviewed 2) coronary artery disease status post CABG 3) carotid stenosis status post endarterectomy 4) hypertension 5) hypercholesterolemia 6) disposition -discharge to home -EP follow-up in 3 to 4 weeksLuz Berkowitz RN - 10/11 6:16 PM PSTEnd of shift chart audit completed. documented in this encounter H&P Notes Jeanette Monroy ARNP - 10/11/2019 1:29 PM PSTFormatting of this note might be differe nt from the original. HPI: This is a 79 y.o. male who presents today for an initial evaluation of palpitations. Mr. Mccarthy reports he has noted sudden increases in his heart rate lasting for several minut es on and off for the past several months. He was seen by cardiology and an outpatient janell tor suggested episodes of a supraventricular tachycardia between [...] palpitations when walking into the office today. Fernando cifuentes was also recently found to have a large renal stone and is considering lithotripsy in the near future. He continues to do his usual activity without any new limitations or symptoms. He denies any current chest pain, shortness of breath, or recent syncope. Past Medical History: Diagnosis Date Abdominal aortic aneurysm (AAA) without rupture ([facility]) 06/20/2019 Arthralgia Atherosclerosis Bronchiectasis ([facility]) Mild , lower lobes CAD (coronary [...] and sinus discharge PAD (peripheral artery disease) ([facility]) Polycythemia vera ([facility]) 2016 Renal stone on imaging Sciatica Sinusitis Chronic Stroke ([facility]) Trigeminy Past Surgical History: Procedure Laterality Date CARDIAC CATHERIZATION 06/2009 LM 60-70% distal, LAD 95% mid-distal, D1 70% ostial, Cx 90% mid, RI ostial stenosis, RCA 60% mid, PDA 90% COLONOSCOPY CORONARY ARTERY BYPASS [...] - ECG 12 lead; Standing - Void line construction engineer to OR; Standing - Skin prep; Standing - sodium chloride 0.9% (NS) infusion - Basic Metabolic Panel; Standing - CBC with Differential; Standing 1) Supraventricular tachycardia - Mr. Mccarthy has noted episodes of sudden increases in his heart rate on and off for the past several months. He wore a desk monitor through cardio [employer] and episodes of a supraventricular tachycardia between [...] ad equate following potential slow pathway modification. Update: Patient seen and examined on day of procedure. No changes to plan or assessment. H e's held his Toprol 5 days pre procedurally as instructed. He's noticed an increased frequen cy of now almost daily "warm" sensations to chest he associates with episodes of SVT since s topping the Toprol - doesn't necessarily appreciate elevated heart rates or palpitations - fernando cifuentes's able to remedy the symptoms with breath holding maneuvers. Procedure described in detail with risks and benefits of procedure outlined along with alternative therapies. Patient as ked questions and agrees to proceed. Signed consent on chart. Consents Procedural risks/benefits/goals and other treatment options explained: Yes Sedation Plan, risks and options explained: Yes Patient verbalized understanding, consent obtained: Yes Sedation Plan Anesthesia MARY ANN Cates 10/11/2019 1:47 PM Associated attestation - Cornel Bass MD - 10/11/2019 1:52 PM PSTI have inte rviewed and examined this patient on 10/11/19 and agree with the findings and plan of the [facility] practice provider/house staff with further assessment and decision-making as noted he reafter. documented in this encounter Miscellaneous Notes Plan of Care - Ericka Figueroa RN - 10/12/2019 10:41 AM PST Problem: Adult Inpatient Plan of Care Goal: Absence of Hospital-Acquired Illness or Injury Outcome: Ongoing, progressing Problem: Pain (Cardiac Catheterization) Goal: Acceptable Pain Control Outcome: Ongoing, progressing Problem: Vascular Access Protection (Cardiac Catheterization) Goal: Absence of Vascular Access Complication Outcome: Ongoing, progressing lan of Enrique - Yas Clark RN - 10/12/2019 6:50 AM PSTNo acute changes throughout the shift. End of shift audit complete. lan of Yas Sutherland RN - 10/11/2019 9:21 PM PST Problem: Adult Inpatient Plan of Care Goal: Plan of Care Review Outcome: Ongoing, progressing Plan of care reviewed with pt. All questions answered. Pt verbalized understanding. Problem: Adult Inpatient Plan of Care Goal: Absence of Hospital-Acquired Illness or Injury Outcome: Ongoing, progressing Pt ID and allergy bands on. Aware of how and when to use call light. Call light and bedsid e table within reach. Bed in low and locked position. Room free of clutter. Problem: Bleeding (Cardiac Catheterization) Goal: Absence of Bleeding Outcome: Ongoing, progressing Both femoral sites monitored for bleeding per signed order. Problem: Pain (Cardiac Catheterization) Goal: Acceptable Pain Control Outcome: Ongoing, progressing Pain managed per MAR P M PSTPlan of Care - Yas Guardado RN - 10/11/2019 7:57 PM PSTPt up with RN after 4 h our bed rest. Insertion sites monitored and no bleeding noted. Pt complaining of L femoral s ite throbbing. Ice pack provided and PRN fentanyl 25 mcg given per MAR lan of [facility] [place] - Luz Esteban RN - 10/11/2019 6:06 PM PSTPt recovering well s/p SVT ablation. Pt complai nt with bedrest restrictions. Telemetry indicating SR w/ 1 deg, intermittent appearance of B BB. Pt c/o throb/mild tenderness to L femoral site. Bilateral femoral sites have remain unch anged since arrival to floor. 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 NSR with baselin e 1st degree, rate 70's on tele. Dressings to bilateral groin access sites CDI - free from o vert hematoma, oozing,bruising - some tenderness to L groin site with palpation. Overnight ( given procedure time, bed rest, and patient residence out of [place]) POC reviewed with juan carlos t and son, d/c instructions and follow up plan reviewed - questions asked and answered with expressed understanding and agreement. Refer to Dr Bass's operative report and H&P for a dditional. MARY ANN Cates p Note - Ana burgess, Cornel Hoang MD - 10/11/2019 4:12 PM [facility] OPERATIVE REPORT CORNEL BASS MD Patient: SIMON MCCARTHY Admitting: CORNEL BASS MR #: [id number] LOC: PT TYPE: Adm Date: 10/11/2019 : 1940 DATE OF PROCEDURE: 10/11/2019 PREOPERATIVE DIAGNOSIS: Supraventricular tachycardia. POSTOPERATIVE DIAGNOSIS: Slow pathway ablation for possible typical atrioventricular oseas reentrant tachycardia. SURGEON: Cornel Bass M.D. PROCEDURES: 1. Comprehensive electrophysiology study. 2. Induction/attempted induction of arrhythmia. 3. Coronary sinus catheterization. 4. Catheter mapping. 5. Program stimulation post-drug infusion. 6. Radiofrequency ablation of supraventricular tachycardia (slow pathway for possible typi kenneth atrioventricular oseas reentrant tachycardia). PERFORMED BY: Cornel Bass MD SEDATION: Conscious sedation provided by the Anesthesia Department. ESTIMATED BLOOD LOSS: Minimal. ACCESSES: 1. Right superficial femoral vein, a short 8-Maldivian sheath exchanged for an 8-Maldivian SEPT sheath for quadripolar catheter placed in the high right atrium, exchanged for a 4 mm Blazer II large curved HTD ablation catheter in the right atrium/right ventricle, a short 7-Maldivian sheath for a deflectable decapolar catheter placed in the coronary sinus. 2. Left superficial femoral vein, a short 6-Maldivian sheath for quadripolar catheter placed in the His position and a short 7-Maldivian sheath for quadripolar catheter placed on the right ventricular septum. COMPLICATIONS: None. FINDINGS: 1. Normal sinus rhythm in the 60s on arrival to the EP lab. 2. AH interval of 136 milliseconds, HV of 44 milliseconds at baseline. 3. Concentric antegrade AV conduction with AV Wenckebach cycle length of 460 milliseconds at baseline. 4. Concentric retrograde VA conduction with VA Wenckebach cycle length of 340 milliseconds at baseline. 5. Dual AV oseas physiology noted with fast pathway ERP of 420 milliseconds and a slow pat hway ERP of 370 milliseconds at a paced cycle length of 600 milliseconds from the high right atrium. 6. No inducible supraventricular tachycardia at baseline and post-1 mg of IV atropine. 7. Atrial echo beats were noted with attempts at induction. 8. Radiofrequency ablation of the slow pathway was performed with junctional tachycardia n oted gradually extinguishing to sinus rhythm with no AV or VA block noted. 9. Change in the antegrade conduction was noted with no further slow pathway conduction po st-ablation. 10. Inducible left atrial tachycardia with Isuprel at 4 mcg per minute (resulting in sinus tachycardia to 130-140 beats per minute). The episodes were nonsustained and terminated sp ontaneously. The earliest CS activation was CS 34 during the episodes. BRIEF HISTORY: This is a 79-year-old male with a history of carotid stenosis, status post bilateral carotid endarterectomy, coronary artery disease, status post CABG times 6, first-d egree AV block, hypertension, hypercholesterolemia, peripheral arterial disease who was note d to have episodes of palpitations who wear an outpatient desk monitor and runs of a poss ible supraventricular tachycardia with short RP variety were noted. He then elected to pro ceed with EP study and possible ablation and presents today for procedure. PROCEDURE IN DETAIL: Informed consent was obtained from the patient prior to procedure. R isks are but not limited to bleeding, infection, pneumothorax, renal failure, perforation, t amponade, cardiac arrest, stroke and . Signed consent was on the chart prior to proced ure. The patient was brought to procedure area, appropriately identified and placed on the opera tive table. The planned operative sites of the bilateral groins were also appropriately mariam ntified and prepped and draped in sterile fashion. Using 1 percent lidocaine solution, the bilateral groins fully anesthetized using a long Co ok needle and Seldinger technique. The right and left superficial femoral venous systems we re cannulated in standard fashion with sheaths placed as noted above. After the sheaths were in position, the intracardiac electrophysiology catheter was positio devon in their respective locations as noted above and EP study was then performed. Initially, a dual AV oseas physiology was suggested but a reentrant supraventricular tachyc ardia cannot be induced at baseline despite multiple maneuvers with burst pacing and single and double extra stimuli from the high right atrial catheter and coronary sinus catheter, 1 mg of IV atropine was then administered, which improved some AV oseas conduction given signi ficant first-degree AV block at baseline, but a reentrant SVT could not be induced but atri al echo beats were appreciated at times, it was elected to proceed with slow pathway ablatio n given the previous findings on outpatient monitoring. The high right atrial catheter was removed. The 4 mm Blazer II large curved HTD RF ablatio n catheter was then positioned through the 8-Maldivian sheath under fluoroscopic guidance in th e right side of the heart and positioned along the lower portion of the septum just above th e level of the coronary sinus ostium where the atrial to ventricular electrogram was initial ly 1-4, radiofrequency ablation lesions in this area resulted in some junctional beats. Ul timately, a SEPT sheath was required for stability along the septum and improved energy deli very into this area. Ultimately junctional tachycardia was extinguished to sinus rhythm wit h no further junctional beats noted and consolidating lesions in this area failed to induce any further junctional beats. No further suggestion of slow pathway conduction was noted po st-ablation, in addition to a change in the antegrade conduction with burst pacing from the high right atrium. Isuprel was then infused up to 4 mcg per minute, which resulted in sinus tachycardia to 130 -140 beats per minute, no reentrant SVT was appreciated, but runs of likely left atrial tach ycardia were induced with Isuprel and burst pacing. The episodes were nonsustained and term inating spontaneously and with earliest CS activation in CS 34. After completion of the procedure with no further slow pathway conduction, the EP catheter was removed under fluoroscopic guidance. The SEPT sheath was then removed over a wire and d ilator under fluoroscopic guidance and the sheath was removed with manual pressure held for good hemostasis. The patient was then awakened from sedation and found to be in satisfactory condition and s ent to Recovery with no obvious complications noted. CORNEL BASS MD Dictated by CORNEL BASS MD 10/11/2019 16:12:10 Transcribed on 10/11/2019 21:48:25 by radha job# [id number] Confirmation #: [id number] signed by Cornel Bass MD at 10/12/2019 9:33 AM PSTBrief Op Note - Cornel Bass MD - 10/11/2019 3:57 PM PSTCardiac El ectrophysiology Procedure Report 10/11/2019, 3:57 PM See dictated Operative Report for full details Procedure: 1) comprehensive electrophysiology study 2) induction/attempt at induction of arrhythmia 3) coronary sinus catheterization 4) catheter mapping 5) programmed stimulation post drug infusion 6) radiofrequency ablation of SVT (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) Performed by: Maryjo Indication: supraventricular tachycardia Sedation: MAC by anesthesia EBL: minimal Access: 1) right SFV 8F - 8F SEPT - quad in HRA/4 mm Blazer II lg curve HTD in RA/RV - 7F - deflectable deca in CS 2) left SFV 6F - quad at His - 7F - quad on RV septum Complications: none Findings: 1) normal sinus rhythm in 60s on arrival to EP lab 2) AH 136, HV 44 ms at baseline 3) concentric antegrade AV conduction, AVWB 460 ms at baseline 4) concentric retrograde VA conduction, VAWB 340 ms at baseline 5) dual AV oseas physiology noted - FRERP 420, SPERP 370 ms at PCL 600 ms from HRA 6) no inducible SVT at baseline and post 1 mg IV atropine 7) atrial echo beats noted with attempts at induction 8) RFA of slow pathway performed with JT noted - no AV/VA block noted 9) change in antegrade conduction with no further slow pathway conduction post RFA 10) inducible left atrial tachy with Isuprel at 4 mcg/min (ST to 130-140 bpm) - nonsustai devon episodes noted - earliest CS activation in CS 3,4 Post-op Plan: 1) bed rest x 4 hours 2) check ECG 3) continue outpatient medications 4) telemetry Dictated: [id number] documented in this encounter Plan of Treatment +--------+---------+ + + + | Date | Type | Specialty | Care Team | Description | +--------+---------+ + + + | 06/25/ | Office | Cardiology | Kim Connie | | | 2019 | Visit | | [address] | | | | | | [address] | | | | | | [place] [address] | | | | | | [phone] | | | | | | | | +--------+---------+ + + + documented as of this encounter Procedures + +--------+ + + + | Procedure Name | Priori | Date/Time | Associated Diagnosis | Comments | | | ty | | | | + +--------+ + + + | ECG 12 LEAD | PILY | 10/11/2019 | | Results for this | | | | 4:56 PM | | procedure are in the | | | | PST | | results section. | + +--------+ + + + | RT EXTUBATION | Routin | 10/11/2019 | | | | | e | 4:20 PM | | | | | | PST | | | + +--------+ + + + | CV EP PROCEDURE | Routin | 10/11/2019 | Supraventricular | Results for this | | | e | 3:47 PM | tachycardia (HCC) | procedure are in the | | | | PST | | results section. | + +--------+ + + + | ECG 12 LEAD | PILY | 10/11/2019 | | Results for this | | | | 1:58 PM | | procedure are in the | | | | PST | | results section. | + +--------+ + + + | CBC WITH | STAT | 10/11/2019 | | Results for this | | DIFFERENTIAL | | 1:18 PM | | procedure are in the | | | | PST | | results section. | + +--------+ + + + | BASIC METABOLIC | STAT | 10/11/2019 | | Results for this | | PANEL | | 1:18 PM | | procedure are in the | | | | PST | | results section. | + +--------+ + + + documented in this encounter Results ECG 12 lead (10/11/2019 4:56 PM PST) + + + + + + | Component | Value | Ref Range | Performed | Pathologist | | | | | At | Signature | + + + + + + | VENTRICULAR | 75 | BPM | [facility] | | | RATE EKG | | | | | + + + + + + | ATRIAL RATE | 75 | BPM | [facility] | | + + + + + + | P-R | 238 | ms | [facility] | | | INTERVAL | | | | | + + + + + + | QRS | 100 | ms | [facility] | | | DURATION | | | | | + + + + + + | Q-T | 376 | ms | [facility] | | | INTERVAL | | | | | + + + + + + | Q-T | 419 | ms | [facility] | | | INTERVAL | | | | | | (CORRECTED) | | | | | + + + + + + | P WAVE AXIS | 9 | degrees | [facility] | | + + + + + + | QRS AXIS | -5 | degrees | [facility] | | + + + + + + | T AXIS | 20 | degrees | [facility] | | + + + + + + | INTERPRETAT | Sinus rhythm with 1st | | [facility] | | | ION TEXT | degree A-V | | | | | | blockIncomplete right | | | | | | bundle branch | | | | | | blockInferior infarct , | | | | | | age undeterminedAbnormal | | | | | | ECGWhen compared with | | | | | | ECG of 11-OCT-2019 | | | | | | 13:58,No significant | | | | | | change was | | | | | | foundConfirmed by | | | | | | JUAN A KING ([id number]) on | | | | | | 10/13/2019 9:49:57 AM | | | | + + [...] | | + +---------+ + + | [facility] | | | | + +---------+ + + CV EP PROCEDURE (10/11/2019 3:47 PM PST) + + | Specimen | + + | | + + + + + | Narrative | Performed At | + + + | See dictated | | | OP Report for details. | | + + + ECG 12 lead (10/11/2019 1:58 PM PST) + + + + + + | Component | Value | Ref Range | Performed | Pathologist | | | | | At | Signature | + + + + + + | VENTRICULAR | 69 | BPM | [facility] | | | RATE EKG | | | | | + + + + + + | ATRIAL RATE | 69 | BPM | [facility] | | [...] + + + + | Q-T | 400 | ms | [facility] | | | INTERVAL | | | | | + + + + + + | Q-T | 428 | ms | [facility] | | | INTERVAL | | | | | | (CORRECTED) | | | | | + + + + + + | P WAVE AXIS | 22 | degrees | [facility] | | + + + + + + | QRS AXIS | -7 | degrees | [facility] | | + + + + + + | T AXIS | 25 | degrees | [facility] | | + + + + + + | INTERPRETAT | Sinus rhythm with sinus | | [facility] | | | ION TEXT | arrhythmia with 1st | | | | | | degree A-V | | | | | | blockIncomplete right | | | | | | bundle branch | | | | | | blockBorderline ECGWhen | | | | | | compared with ECG of | | | | | | 05-SEP-2019 | | | | | | 11:23,Previous ECG has | | | | | | undetermined rhythm, | | | | | | needs reviewIncomplete | | | | | | right bundle branch | | | | | | block is now | | | | | | PresentConfirmed by | | | | | | JUAN A KING ([id number]) on | | | | | | 10/11/2019 4:21:46 PM | | | | + + [...] | | | + +---------+ + + CBC with Differential (10/11/2019 1:18 PM PST) + + + + + + | Component | Value | Ref Range | Performed | Pathologist | | | | | At | Signature | + + + + + + | WBC | 5.74 | 3.80 - 11.00 | [facility] | | | | | K/uL | LABORATORY | | + + + + + + | Red Blood | 5.19 | 4.20 - 5.70 | [facility] | | | Cells | | M/uL | LABORATORY | | + + + + + + | Hemoglobin | 15.1 | 13.2 - 17.0 | [facility] | | | | | g/dL | LABORATORY | | + + + + + + | Hematocrit | 45.0 | 39.0 - 50.0 % | [facility] | | | | | | LABORATORY | | + + + + + + | MCV | 86.7 | 80.0 - 100.0 fl | [facility] | | | | | | LABORATORY | | + + + + + + | MCH | 29.2 | 27.0 - 34.0 pg | [facility] | | | | | | LABORATORY | | + + + + + + | MCHC | 33.6 | 32.0 - 35.5 | [facility] | | | | | g/dL | LABORATORY | | + + + + + + | RDW-SD | 45.9 | 37 - 53 fl | [facility] | | | | | | LABORATORY | | + + + + + + | Platelet | 209 | 150 - 400 K/uL | [facility] | | | Count | | | LABORATORY | | + + + + + + | MPV | 8.4 | fl | [facility] | | | | | | LABORATORY | | + + + + + + | Diff Type | AUTOMATED | | [facility] | | | | | | LABORATORY | | + + + + + + | % | 69.94 | % | [facility] | | | Neutrophils | | | LABORATORY | | + + + + + + | % | 16.33 | % | [facility] | | | Lymphocytes | | | LABORATORY | | + + + + + + | Monocyte % | 11.21 | % | [facility] | | | | | | LABORATORY | | + + + + + + | Eosinophils | 1.70 | % | [facility] | | | % | | | LABORATORY | | + + + + + + | Basophils % | 0.82 | % | [facility] | | | | | | LABORATORY | | + + + + + + | Neutrophils | 4.01 | 1.90 - 7.40 | [facility] | | | , Absolute | | K/uL | LABORATORY | | + + + + + + | Absolute | 0.94 (L) | 1.00 - 3.90 | [facility] | | | Lymphocytes | | K/uL | LABORATORY | | + + + + + + | Absolute | 0.64 | 0.00 - 0.80 | [facility] | | | Monocytes | | K/uL | LABORATORY | | + + + + + + | Eosinophils | 0.10 | 0.00 - 0.50 | [facility] | | | , Absolute | | K/uL | LABORATORY | | + + + + + + | Basophils, | 0.05Comment: Testing | 0.00 - 0.10 | [facility] | | | Absolute | performed at [facility];[address] | K[address]uL | LABORATORY | | | | [address];[place], [place] | | | | | | [address] | | | | + + + + + + + + | Specimen | + + | Blood | + + + + + + + | Performing | Address | City/State/Zipcode | Phone Number | | Organization | | | | + + + + + | [facility] | [address] | [place] [address] | [phone] | + + + + + Basic Metabolic Panel (10/11/2019 1:18 PM PST) + + + + + + | Component | Value | Ref Range | Performed | Pathologist | | | | | At | Signature | + + + + + + | Na | 141 | 135 - 145 | [facility] | | | | | mmol/L | LABORATORY | | + + + + + + | K | 4.2 | 3.5 - 4.9 | [facility] | | | | | mmol/L | LABORATORY | | + + + + + + | Cl | 106 | 99 - 109 mmol/L | [facility] | | | | | | LABORATORY | | + + + + + + | CO2 | 28 | 23 - 32 mmol/L | [facility] | | | | | | LABORATORY | | + + + + + + | Anion Gap | 11 | 5 - 20 mmol/L | [facility] | | | | | | LABORATORY | | + + + + + + | Glucose | 89 | 65 - 99 mg/dL | [facility] | | | | | | LABORATORY | | + + + + + + | BUN | 15 | 8 - 25 mg/dL | [facility] | | | | | | LABORATORY | | + + + + + + | Creatinine | 1.21 | 0.70 - 1.30 | [facility] | | | | | mg/dL | LABORATORY | | + + + + + + | BUN/Creatin | 12 | | [facility] | | | ine Ratio | | | LABORATORY | | + + + + + + | Calcium | 9.3 | 8.5 - 10.5 | [facility] | | | | | mg/dL | LABORATORY | | + + + + + + | Estimated | 58 (L)Comment: GFR <60: | >60 | [facility] | | | GFR | CHRONIC KIDNEY [...] | | | | | | [facility]D [facility] traceable | | | | | | equation.Testing | | | | | | performed at [facility] | | | | | | [facility];[place], [place] | | | | | | [address] | | | | + + + + + + + + | Specimen | + + | Blood | + + + + + + + | Performing | Address | City/State/Zipcode | Phone Number | | Organization | | | | + + + + + | [facility] | [address] | [place] [address] | [phone] | + + + + + documented in this encounter Visit Diagnoses + + | Diagnosis | + + | Supraventricular tachycardia (HCC) Other specified cardiac dysrhythmias | + + documented in this encounter Admitting Diagnoses + + | Diagnosis | + + | Supraventricular tachycardia (HCC) Other specified cardiac dysrhythmias | + + documented in this encounter Administered Medications + +--------+---------+------+------+------+ | Medication Order | MAR | Action | Dose | Rate | Site | | | Action | Date | | | | + +--------+---------+------+------+------+ + +---+ | albuterol 2.5 mg/3 mL nebulizer | | | solution 2.5 mg 2.5 mg, | | | Nebulization, ONCE PRN, Wheezing, | | | Starting [facility] 10/11/19 at 1620, | | | For 1 dose, Notify anesthesia if | | | patient is wheezing and does not | | | have a history of asthma or COPD | | | or current smoking., | | | Post-op/Phase II | | + +---+ | | | + +---+ + +-------+ +-------+---+---+ | clopidogrel (PLAVIX) tablet 75 | Given | 10/12/19 | 75 mg | | | | mg 75 mg, Oral, DAILY, First | | 20 8:50 | | | | | dose on Tue10/12/19 at 0900 | | AM PST | | | | + +-------+ +-------+---+---+ + +---+ | | | + +---+ | dextrose 50% injection 12.5-25 | | | g 12.5-25 g, Intravenous, EVERY | | | 15 MIN PRN, Low Blood Sugar, For | | | hypoglycemia. Give 12.5g (25ml) | | | IV if blood glucose 50-69 | | | mg/dL. Give 25g (50ml) IV if | | | blood glucose < 50, Starting Sandra | | | 10/11/19 at 1620, Give over 2 min. | | | Repeat in 15 min if blood | | | glucose remains < 70 mg/dL. | | | Repeat blood glucose in 30 min | | | once blood glucose > 70., | | | Post-op/Phase II | | + +---+ | | | + +---+ + +-------+ +--------+---+---+ | fentaNYL (PF) injection 25-50 | Given | 10/12/19 | 25 mcg | | | | mcg 25-50 mcg, Intravenous, | | 20 7:33 | | | | | EVERY 5 MIN PRN, Pain, Initial | | AM PST | | | | | postop urgent pain or escalating | | | | | | | pain, Starting Sandra 10/11/19 at | | | | | | | 1620, For 4 doses, (2 doses | | | | | | | maximum for opioid naive, 4 doses | | | | | | | maximum for opioid tolerant) | | | | | | | First dose must be lowest dose. | | | | | | | Use Pasero Sedation Scale. | | | | | | | [Opioid tolerant = One week or | | | | | | | longer, apipec-ibw-zssik use of | | | | | | | at least the following DAILY | | | | | | | dose: 60mg oral morphine, 60mg | | | | | | | oral hydrocodone, 30mg oral | | | | | | | oxycodone, 8mg oral | | | | | | | hydromorphone, fentanyl patch | | | | | | | 25mcg/hr, or equivalent dose of | | | | | | | another opioid], Post-op/Phase II | | | | | | + +-------+ +--------+---+---+ +-------+ +--------+---+---+ | Given | 10/11/19 | 25 mcg | | | | | 20 8:46 | | | | | | PM PST | | | | +-------+ +--------+---+---+ + +---+ | | | + +---+ | labetalol (TRANDATE) 5 mg/mL | | | injection 5 mg 5 mg, | | | Intravenous, EVERY 5 MIN PRN, For | | | SBP > 180, DBP > 100, Starting | | | Sandra 10/11/19 at 1620, Hold if HR < | | | 60. Maximum total dose 300mg. | | | Notify anesthesia if patient | | | requires more than 50mg., | | | Post-op/Phase II | | + +---+ | | | + +---+ + +-------+ +--------+---+---+ | lidocaine 1% injection ONCE | Given | 10/11/19 | 10 mLs | | | | PRN, Starting Sandra 10/11/19 at | | 20 2:22 | | | | | 1422, Intra-op | | PM PST | | | | + +-------+ +--------+---+---+ +---+---+ | | | +---+---+ + +-------+ +-------+---+---+ | losartan (COZAAR) tablet 50 mg | Given | 10/11/19 | 50 mg | | | | 50 mg, Oral, NIGHTLY, First dose | | 20 8:06 | | | | | on Tue10/11/19 at 2100 | | PM PST | | | | + +-------+ +-------+---+---+ + +---+ | | | + +---+ | meperidine (DEMEROL) injection | | | 12.5-25 mg 12.5-25 mg, | | | Intravenous, PRN, Shivering, | | | Starting Sandra 10/11/19 at 1620, For | | | 2 doses, May Repeat once in 5 | | | min., Post-op/Phase II | | + +---+ | | | + +---+ + +-------+ +-------+---+---+ | metoprolol succinate | Given | 10/11/19 | 50 mg | | | | (TOPROL-XL) ER tablet 50 mg 50 | | 20 5:12 | | | | | mg, Oral, DAILY, First dose on | | PM PST | | | | | Sandra 10/11/19 at 1700, Tablet may | | | | | | | be cut where scored but do not | | | | | | | crush., | | | | | | + +-------+ +-------+---+---+ + +---+ | | | + +---+ | ondansetron (ZOFRAN) injection | | | 4 mg 4 mg, Intravenous, EVERY 4 | | | HOURS PRN, Nausea, Vomiting, | | | Starting [facility] 10/11/19 at 1620, | | | Post-op/Phase II | | + +---+ | | | + +---+ documented in this encounter
--- OUTSIDE RECORDS SUMMARY | ~2020-05-18 | XMS | Encounter Summary ---
Demographics + + + | Address | [address] | | | [place] [address] | + + + | Home Phone | | + + + | Preferred Language | Unknown | + + + | Marital Status | | + + + | Moravian Affiliation | [id number] | + + + | Race | White | + + + | Ethnic Group | Not or | + + + Author + + + | Author | [facility] | | | and [place] | + + + | Organization | [facility] | | | and [place] | + + + | Address | Unknown | + + + | Phone | Unavailable | + + + Support + + + + + | Name | Relationship | Address | Phone | + + + + + | Tera Mccarthy | ECON | [place], [place] | | | | | [address] | | + + + + + | Alicia Mccarthy | ECON | [address] | | | | | [place] [address] | | + + + + + Care Team Providers + +------+ + | Care Mine Inspector Name | Role | Phone | + +------+ + | Bob Banks MD | PCP | | + +------+ + Reason for Referral Diagnostic/Screening (Routine) +--------+--------+ + + + + | Status | Reason | Specialty | Diagnoses / | Referred By | Referred To | | | | | Procedures | Contact | Contact | +--------+--------+ + + + + | Closed | | Radiology | Diagnoses | Kim, | | | | | | Abdominal | Connie Varela, | | | | | | aortic | [facility] [address] | | | | | | aneurysm | [address] | | | | | | (AAA) | [place] | | | | | | without | [place], [place] | | | | | | rupture | [id number] | | | | | | (HCC) | Phone: | | | | | | Ascending | [phone] | | | | | | aorta | Fax: | | | | | | dilatation | [phone] | | | | | | (HCC) | | | | | | | Procedures | | | | | | | VAS Aorta | | | | | | | Iliac Duplex | | | | | | | Limited | | | +--------+--------+ + + + + Diagnostic/Screening (Routine) + +--------+ + + + + | Status | Reason | Specialty | Diagnoses / | Referred By | Referred To | | | | | Procedures | Contact | Contact | + +--------+ + + + + | Pending | | Radiology | Diagnoses | Kim, | | | Review | | | History of | Mariah, | | | | | | CEA (carotid | [facility] [address] | | | | | | | [address] | | | | | | endarterecto | [place] | | | | | | my) | [place] | | | | | | Bilateral | [id number] | | | | | | carotid | Phone: | | | | | | artery | [phone] | | | | | | disease, | Fax: | | | | | | unspecified | [phone] | | | | | | type (HCC) | | | | | | | Bilateral | | | | | | | carotid | | | | | | | bruits Mild | | | | | | | aortic | | | | | | | stenosis by | | | | | | | prior | | | | | | | echocardiogr | | | | | | | am | | | | | | | Procedures | | | | | | | CT Angiogram | | | | | | | Head Neck w | | | | | | | Contrast | | | + +--------+ + + + + Diagnostic/Screening (Routine) + +--------+ + + + + | Status | Reason | Specialty | Diagnoses / | Referred By | Referred To | | | | | Procedures | Contact | Contact | + +--------+ + + + + | Pending | | Cardiology | Diagnoses | Kim, | | | Review | | | Coronary | Connie Varela, | | | | | | artery | [facility] [address] | | | | | | disease | [address] | | | | | | involving | [place] | | | | | | tejon | [place], [place] | | | | | | coronary | [id number] | | | | | | artery of | Phone: | | | | | | tejon heart | [phone] | | | | | | without | Fax: | | | | | | angina | [phone] | | | | | | pectoris Hx | | | | | | | of CABG | | | | | | | Moderate | | | | | | | mitral | | | | | | | regurgitatio | | | | | | | n by prior | | | | | | | echocardiogr | | | | | | | am | | | | | | | Asymmetric | | | | | | | septal | | | | | | | hypertrophy | | | | | | | ([facility]) Mild | | | | | | | aortic | | | | | | | stenosis by | | | | | | | prior | | | | | | | echocardiogr | | | | | | | am | | | | | | | Ascending | | | | | | | aorta | | | | | | | dilatation | | | | | | | ([facility]) | | | | | | | Procedures | | | | | | | [place] | | | | | | | Complete | | | + +--------+ + + + + Reason for Visit + + + | Reason | Comments | + + + | Follow-up | Dizziness | + + + Encounter Details +--------+---------+ + + + | Date | Type | Department | Care Team | Description | +--------+---------+ + + + | 05/14/ | Office | [facility] | Connie Alvarez | Coronary artery | | 2019 | Visit | [facility] | [address] | disease involving | | | | [address] | [address] | coronary bypass | | | | [address] | [place] [address] | graft of tejon | | | | [address] | [phone] | heart without angina | | | | [phone] | | pectoris (Primary | | | | | | Dx); Coronary artery | | | | | | disease involving | | | | | | tejon coronary | | | | | | artery of tejon | | | | | | heart without angina | | | | | | pectoris; Hx of | | | | | | CABG; Moderate | | | | | | mitral regurgitation | | | | | | by prior | | | | | | echocardiogram; | | | | | | Asymmetric septal | | | | | | hypertrophy (HCC); | | | | | | Abdominal aortic | | | | | | aneurysm (AAA) | | | | | | without rupture | | | | | | ([facility]); History of | | | | | | CEA (carotid | | | | | | endarterectomy); | | | | | | Bilateral carotid | | | | | | artery disease, | | | | | | unspecified type | | | | | | ([facility]); Bilateral | | | | | | carotid bruits; | | | | | | History of CVA in | | | | | | adulthood; Facial | | | | | | droop; Mixed | | | | | | hyperlipidemia; | | | | | | Statin intolerance; | | | | | | Supraventricular | | | | | | tachycardia ([facility]); | | | | | | First degree | | | | | | atrioventricular | | | | | | block; S/P RF | | | | | | ablation operation | | | | | | for arrhythmia; Risk | | | | | | factors for | | | | | | obstructive sleep | | | | | | apnea; Polycythemia | | | | | | vera ([facility]); | | | | | | 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; | | | | | | Mild aortic stenosis | | | | | | by prior | | | | | | echocardiogram; | | | | | | Ascending aorta | | | | | | dilatation ([facility]); | | | | | | Hypertension, | | | | | | unspecified type | +--------+---------+ + + + Social History [...] + + + | Blood Pressure | 122/70 | 05/14/2020 12:58 PM | | | | | PDT | | + + + + + | Pulse | 70 | 05/14/2020 12:58 PM | | | | | PDT | | + + + + + | Temperature | 36.7 C (98 F) | 05/14/2020 12:58 PM | | | | | PDT | | + + + + + | Respiratory Rate | - | - | | + + + + + | Oxygen Saturation | 97% | 05/14/2020 12:58 PM | | | | | PDT | | + + + + + | Inhaled Oxygen | - | - | | | Concentration | | | | + + + + + | Weight | 73.8 kg (162 lb 12.8 | 05/14/2020 12:58 PM | | | | oz) | PDT | | + + + + + | Height | 175.3 cm (5' 9") | 05/14/2020 12:58 PM | | | | | PDT | | + + + + + | Body Mass Index | 24.04 | 05/14/2020 12:58 PM | | | | | PDT [...] this encounter Patient Instructions Patient Instructions Connie Alvarez FNP - 05/14/2020 1:00 PM PDTI have ordered you Non fasting labs to be done at [facility] for CTA of head and neck, , but can drink wate r prior to having labs done I also ordered you an Echo and CTA of head and neck, as well as Abdominal US to be done a t [facility] I made no changes to medications See me back in 6 weeks in [place] documented in this encounter Progress Notes Connie Alvarez FNP - 05/14/2020 1:00 PM PDTFormatting of this note might be differe nt from the original. Date of visit: 05/14/2020 Primary Care Physician: Bob Bansk MD CHIEF COMPLAINT: Chief Complaint Patient presents with Follow-up Dizziness HISTORY OF PRESENT ILLNESS: Mr. Simon Mccarthy, Evelio, is a 80-year-old man who is here today to follow up on increa sed dizziness. He is accompanied today by his son who contributed to history, and also drove him to his ap pointment He is a patient of marketing co op Dr. Shannan Yu, and she last performed a virtual visit with him on March 12, 2028. He previously saw Dr. Lim. I have not seen him since July 28. 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 Yu had noted that he had followed up with Dr. [facility]frequency ablation of his SVT which was a slow pathway for possib le AVNRT in September 2019. Unfortunately he suffered a Brain stem stroke in [facility] and was in rehab there for 4 months. Per her virtual visit documentation, he had reported that one of his eyes is still not tracking and his balance was off and he was planning on going back to [place] to see a neuro-agricultural chemicals inspector and was using a walker and he continued to hav issues with dizziness. She also noted his systolic blood pressure was again elevated in the 160s and that his s ystolic blood pressure at home was in the 160s and that his losartan had been stopped for di zziness. He previously reported to me and Dr. Yu recurrent issues with dizziness despite b eing normotensive, and was constantly adjusting his antihypertensives which probably contrib uted to his strokes as he had systolic blood pressures in the 160-200 range prior to his str robin. Dr. Angulo did not believe his dizziness was related to his blood pressure and that he ne eded strict blood pressure control. She continued Zetia, metoprolol succinate, Plavix, aspi rin, to follow-up with EP and neurology and to continue to monitor his blood pressure at [facility] and that he needed an echo in one year to evaluate his ascending aorta. He was supposed to be followed up in March. He called in May [address] Yu's biomedical analytical scientist about severe dizziness, an d wanted a medication review, so I am seeing him in the clinic today. I tried to get him in on the , but he was in [facility] as there attending his grand daughter's wedding . His current and previous testing and procedures are detailed below. He was previously hospitalized from May 16 until May 19 [facility] with acute CVA and consulted by neurologist [...] consulted on by vascular surgeon Dr. Centeno He was hospitalized again May 29 to May 30 for increased heart rate of 150 bpm, and mildly elevated troponin that was stable, and he was discharged with an event monit or ordered by Dr. Sarkar to be performed as an outpatient. On the day of his discharge he was driving home and then felt a warm sensation across his chest, and his heart rate was again 140 bpm and he was readmitted He was discharged again on June 01 , and diagnosed with SVT, and cardiology was cons ulted during the second stay. He was started on metoprolol XL, which he had been on previou y. There was also an incidental finding of an abdominal aortic aneurysm, as well as a 6 mm asymptomatic nonobstructive calculus to his right kidney discovered on renal ultrasound, an d acute kidney injury resolved with IV hydration, and urology also consulted. He was admitted 10/16/[address] [facility] for acute Brainstem stroke, and admitted November [facility] rehab facility He was seen in the emergency room at [facility] on March 17 for increased blood pressu re, which was treated with an extra dose of losartan, and he has remained on losartan since. His blood work performed at the time was normal, and detailed below He reports though his dizziness has been persistent since he spoke to Dr. Yu in February, he thinks it is worse in the last couple of weeks, and especially notices it when he first gets out of bed in the morning, and is wondering if it is his blood pressure. He also reports he did follow-up with a neuro-agricultural chemicals inspector in [place], who is helping him to get established with a neurologist in [place] which will be easier for him to see. He wear s an eye patch over his affected eye and is getting special glasses to also help him. He reports his activity tolerance is good, and he can walk all along the fence post on [place] without chest pain or dyspnea. I checked his orthostatic pressures today, and had him sit, and then stand. Though he felt dizzy when he stood, there was no significant increase in either his heart rate, and on ly 8 to 10mmHg systolic decrease in his blood pressure. Reports he has not had any further palpitations since his SVT ablation, and denies any ches t pain, peripheral edema, dyspnea with or without exertion, or syncope. He also denies any signs or symptoms of stroke or TIA but does feel his ongoing dizziness is affecting his abil ity to mobilize He brought all of his medications to the clinic today,and personally reviewed by me He has remained quite from chewing tobacco since 2008, has never smoked,rarely drinks al cohol and drinks 2 servings of coffee daily. [...] Hx chronic congestion hay fever, mild chronic QIUROZ Chronic sinus/nasa l problems with chronic bronchitis type syndrome, intermittent asthma, previously evaluated by ENT and pulmonology without ongoing benefit from inhalers. Primary benefit from periodic Kenalog shots and occasional courses of this Zithromax and/or doxycycline.Denies cough Den ies hemoptysis or excessive sputum production. Reports occasional snoring, denies orthopnea , PND. Referred for sleep apnea evaluation 07/2017, patient declined Cardiovascular: Denies chest pain,and leg swelling palpitations resolved since SVT ablatio n.. Denies history of rheumatic fever. Denies claudication . Gastrointestinal: GERD. Denies nausea, vomiting, abdominal pain and blood in stool. Genitourinary: Denies hematuria. history of BPH . Nephrolithiasis Musculoskeletal:Hx arthralgia Fingers, shoulders, elbows , sciatica, Denies myalgias, Skin: Denies color change. Denies rash or lesions Neurological:R MCA stroke 05/16/2019, 2nd Brainstem Stroke 10/16/2019 treated in [facility] . c/o neuropathy to feet, lightheadedness, dizziness. .Denies history of seizures. Denies Syncope. Hematological/Oncology Hx polycythemia vera [place] with phlebotomies, 4 in 2016 . PCP notes he has true polycythemia and had complete evaluation and hemochromatosis has been ruled out.Do es not bruise/bleed easily. Denies history of cancer Endocrine: Denies diabetes or thyroid disease. Denies excessive thirst or hunger. Psychiatric/Behavioral: denies any history of depression or anxiety or other psychiatric i llness. Vaccines: Current on 06/2019 flu vaccine. Current on pneumonia vaccine. Habits/Social : Denies history of smoking, hx of chewing tobacco, 1999. rare EtOH use. Dri nks 2 servings of caffeine daily . Denies recreational or illicit drug use. 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 . His mother , Robyn , is also my patient. Outpatient Medications Prior to Visit Medication Sig Dispense Refill aspirin 81 mg EC tablet Take 81 mg by mouth Daily. clopidogrel (PLAVIX) 75 mg tablet Take 1 tablet by mouth Daily. 90 tablet 3 ezetimibe (ZETIA) 10 mg tablet Take 1 tablet by mouth Daily. 30 tablet 11 fluticasone (FLONASE) 50 mcg/nasal spray 1 spray by Nasal route Daily. As needed fluticasone-salmeterol (ADVAIR, WIXELA INHUB) 250-50 mcg/puff diskus inhaler as needed Takes as needed. losartan (COZAAR) 50 mg tablet Take 50 mg by mouth Daily. metoprolol succinate (TOPROL-XL) 25 mg 24 hr tablet Take 25 mg by mouth Daily. No facility-administered medications prior to visit. PHYSICAL EXAM: Wt Readings from Last 3 Encounters: 05/14/20 73.8 kg (162 lb 12.8 oz) 03/12/20 76.7 kg (169 lb) 10/12/19 76.9 kg (169 lb 6.8 oz) Temp Readings from Last 3 Encounters: 05/14/20 36.7 C (98 F) 10/12/19 37.3 C (99.1 F) (Oral) 08/12/19 36.9 C (98.5 F) (Oral) BP Readings from Last 3 Encounters: 05/14/20 122/70 06/17/20 161/87 10/12/19 113/54 Pulse Readings from Last 3 Encounters: 05/14/20 70 03/12/20 81 10/12/19 72 GENERAL: Well developed, well nourished elderly man, in no distress. Appears approximatel y stated age. HEENT: Normocephalic, atraumatic. EYES: PERRL, EOM normal. MOUTH: Mask in place throughout visit, due to COVID-19. Oral exam not performed NECK: Well healed bilateral CEA scars mild [...] donor sca r full leg, well healed . Arthritic changes to fingers SKIN: Warm and dry, capillary refill is [...] tests: Lab Results Component Value Date WBC 5.74 10/11/2019 RBC 5.19 10/11/2019 HGB 15.1 10/11/2019 HCT 45.0 10/11/2019 PLT 209 10/11/2019 Lab Results Component Value Date NA 141 10/11/2019 K 4.2 10/11/2019 CL 106 10/11/2019 CO2 28 10/11/2019 ANIONGAP 11 10/11/2019 BUN 15 10/11/2019 EGFR 58 (L) 10/11/2019 Lab Results Component Value Date CHOL 156 08/11/2019 TRIG 123 08/11/2019 LDL 93 08/11/2019 Lab Results Component Value Date BNP 122.18 (H) 08/11/2019 TSH 3.630 05/28/2019 No results found for: TOTEPI CARDIAC PROCEDURES/IMAGING SVT ablation: 10/11/2019 ([facility]/Dr. Sibley): Comprehensive EP study coronary sinus catheter ization radiofrequency ablation of SVT, 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 Angiogram: 2008: Multivessel occlusive coronary artery disease: [...] leg V CU ECHO Last echo: 05/17/2019 ([facility]): EF 75%. LV normal in size with [...] Mild TR. No pu lmonary hypertension. Mild WV. No pericardial effusion. IVC not well visualized. No mass , no clot VASCULAR PROCEDURES/ IMAGING CTA head: 08/11/2019: No intracranial hemorrhage or CT evidence of acute infarct. Severe s tenosis at the origin of the right vertebral artery. Right cervical artery vertebral artery is small along its entire course, occlusion within the proximal intradural right ventricle artery is unchanged since 05/16/2019. Left vertebral artery widely patent . 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 The right vertebral artery [...] 3. No acute intracranial findings Brain MRI:05/17/2019: [facility] w/ stroke: Abnormal diffusion restriction is seen in the right centrum semiovale compatible with an area of acute infarction. CEA: 02/2010: Right and left carotid artery endarterectomy Last carotid ultrasound: 04/26/2019:( [facility]) Atheromatous changes in the carotid arteries [...] stenosis to left subclavian artery EKG/EVENT MONITOR Event Monitor : 07/10/2019-07/25/2019: This rhythm at 93.9%. Average heart rate 60 bpm, ra nge 51-130. 17 episodes of missed beats. Ventricular ectopy burden 0.05% 1 episode greater than 3 beats, longest run 130 bpm for 5 beats, which was also fastest run SVT 0.4% burden 4 1 episodes greater than 3 beats, longest and fastest run 155 bpm for 218 seconds. No A. fib or flutter. Episodes reported corresponded to sinus rhythm, and reported as dizziness [id number]. Sinus rhythm with first-degree AV block, incomplete right bundle branch b lock, ST elevation to anterior leads. Rate 67 bpm, WV 226 ms, QRS 108 ms, QTC 388 ms EK: Normal sinus rhythm, incomplete bundle branch block, prior septal infarct . First-degree A-V block. Rate 80 bpm, WV 206 ms, QRS 106 ms, QTC 420 ms (personally revie wed by me in the office today and when compared to EKG done in 2013 WV interval has decrease d ) EK05/31/2018: Sinus rhythm with first-degree AV block, incomplete right bundle branch bloc k. Old septal infarct Rate 60 bpm, WV 230 ms, QRS 108 ms, QTC 390 ms him a tracing persona lly reviewed by me, similar morphology to July 2017 EKG, except for increased first-degr ee block EK05/16/2019: Sinus rhythm with first-degree AV block, incomplete right bundle branch blo ck, LVH, old septal infarct w/ low voltage QRS leads II aVF. Rate 61 bpm, WV 226 ms, QRS 11 0 ms, QTC 410 ms, tracing personally reviewed by me EK05/23/2019: Sinus rhythm with first-degree AV block, stable incomplete right bundle bra nch block, LVH, old septal infarct. Rate 70 bpm, WV 230 ms, QRS 140 ms, QTC 410 ms, tracing personally reviewed by me, and similar morphology to previous EKG performed in April 2019, in May 2018 EK05/30/2019:( [facility]) Sinus rhythm with first-degree block, incomplete right bundle branch block, old inferior infarct. Rate 76 bpm, WV 222 ms, QRS 106 ms, QTC 398 ms tracing person ally reviewed by me. EK06/01/2019: ( [facility]) SVT, incomplete right bundle branch block. Rate 124 bpm, QRS 108 ms , QTC 451 ms, tracing personally reviewed by me EK06/19/2019: ( metoprolol XL 50 mg) sinus rhythm with first-degree AV block and septal i nfarct, incomplete right bundle branch block. Rate 64 bpm, WV 224 ms, QRS 108 ms, QTC 402 m s, tracing personally reviewed by me EK07/31/2019: (metoprolol XL 50 mg /Digoxin 125 mcg) Sinus rhythm with first-degree AV bl ock, incomplete right bundle branch block, previous anterior UT, rate 69 bpm, WV 240 ms, QRS 102 ms, QTC 390 ms, tracing personally reviewed by me, and similar morphology to previous E KG performed on June 19, 2019 EK10/11/2019: Sinus rhythm with first-degree AV block, incomplete right bundle branch blo ck, old inferior infarct. Rate 75 bpm, WV 238 ms, QRS 100 ms, QTC 419 ms, tracing personall y reviewed by me EK05/14/2020: Sinus rhythm with first-degree AV block, incomplete right bundle branch blo ck small Q waves leads III. Rate 66 bpm, WV 228 ms, QRS 102 ms, QTC 419 ms, compared with E KG performed in September, tracing personally reviewed by me, first-degree block has decreased LABS: Labs: 03/14: Lipids: Cholesterol 195, triglycerides [...] 132, BUN 17, creatinine 1.14, GFR >60 Labs: 07/09/2019: BMP: Sodium 142, potassium 5.2, chloride 107, glucose 80, BUN 19, creatin ine 1.3, GFR 53 digoxin 1.2 Labs: 01/07/2020: BMP: Sodium 139, potassium 4.5, chloride 109, glucose 81, BUN 21, creatini ne 1.1, GFR 65 BC: WBC 4.4, RBC 4.6, hemoglobin 14.7, hematocrit 44.4, platelets 212 Labs: 03/17/2020:( [facility]) CMP: Sodium 137, potassium 3.9, chloride 105, glucose 112, BUN 1 5, creatinine 0.96, GFR 75, AST 11, ALT 8, alk phos 67, total bili 0.6, albumin 3.7. Magnes ium 1.8. Troponin T <0.010. CBC: WBC 5.2, RBC 4.64, hemoglobin 15.1, hematocrit 44.3, plat elets 188. INR 0.9 ASSESSMENT & PLAN: He was here today with his sone for an earlier visit to follow-up dizziness He has problems as detailed below. His EKG performed in the clinic today shows stable sinus rhythm at 66 bpm with first-degre e AV block and is detailed above As discussed in HPI, though he felt dizzy when going from sitting to standing, he did not h ave an orthostatic drop in his blood pressure, and also minimal increase in his heart rate. His blood pressure in the clinic today is well controlled, and he had no further palpit ations or fast heart rate since his SVT ablation in September. I discussed with him today that there was no medication adjustment needed and that I was ve ry happy that his blood pressure was so much better controlled and I encouraged him to stay on all of his medicines with strict control of his blood pressure. I discussed that perhaps his dizziness was a sequela of his strokes, and might be better ad dressed by his new neurologist, but that I was still going to order some imaging to rule out other causes. I have ordered an updated Echo for evaluation of his mild aortic stenosis, and dilated as cending aorta, and mitral regurgitation to ensure these have not increased and contributing to dizziness. I have also ordered an abdominal ultrasound to evaluate his abdominal aortic aneurysm, as well as a CTA of his head and neck to evaluate his right vertebral stenosis, an d carotid stenosis to ensure that these are also not contributing to his dizziness. All of his imaging will be performed at [facility] For his cardiac medications, I have continued aspirin 81 mg daily, Zetia 10 mg daily for hy perlipidemia with statin intolerance, losartan 50 mg nightly for hypertension, metoprolol XL 25 mg daily for heart rate control and hypertension, and Plavix 75 mg daily for peripheral vascular disease. I will follow-up with him on June 25 in [place], but can see him sooner if neede d 1. Coronary artery disease involving coronary bypass graft of tejon heart without angina p ectoris 2. Coronary artery disease involving tejon coronary artery of tejon heart without angina pectoris 3. Hx of CABG 4. Moderate mitral regurgitation by prior echocardiogram 5. Asymmetric septal hypertrophy (HCC) 6. Abdominal aortic aneurysm (AAA) without rupture (HCC) 7. History of CEA (carotid endarterectomy) 8. Bilateral carotid artery disease, unspecified type (HCC) 9. Bilateral carotid bruits 10. History of CVA in adulthood 11. Facial droop 12. Mixed hyperlipidemia 13. Statin intolerance 14. Supraventricular tachycardia (HCC) 15. First degree atrioventricular block 16. S/P RF ablation operation for arrhythmia 17. Risk factors for obstructive sleep apnea 18. Polycythemia vera (HCC) 19. Obstruction of right vertebral artery 20. Mild aortic stenosis by prior echocardiogram 21. Ascending aorta dilatation (HCC) 22. Hypertension, unspecified type Orders Placed This Encounter Procedures CT Angiogram Head Neck w Contrast VAS Aorta Iliac Duplex Limited Basic Metabolic Panel ECG 12 lead ECHO Complete The following portions of the patient's history were personally reviewed by me and updated as appropriate: EKG tracings, other specialty provider and PCP notes,any Hospital admission and discharge summaries, any ER records , current and previous cardiac testing and procedure reports and d melvin, medication bottles brought to visit today personally reviewed by me. Allergies, current medications.labs Family history, past medical history, past social history, past surgical history. Problem list. [facility] 05/14/2020 docume nted in this encounter Plan of Treatment +--------+---------+ + + + | Date | Type | Specialty | Care Team | Description | +--------+---------+ + + + | 06/25/ | Office | Cardiology | Connie Alvarez | | 2019 | Visit | | [address] | | | | | | [address] | | | | | | [place] [address] | | | | | | [phone] | | | | | | | | +--------+---------+ + + + + + +--------+ + + | Name | Type | Priori | Associated Diagnoses | Order Schedule | | | | ty | | | + + +--------+ + + | ECHO Complete | Echocardiog | Routin | Coronary artery | Expected: | | | loren | e | disease involving | 05/14/2020, Expires: | | | | | tejon coronary | 05/14/2021 | | | | | artery of tejon | | | | | | heart without angina | | | | | | pectoris Hx of | | | | | | CABG Moderate | | | | | | mitral regurgitation | | | | | | by prior | | | | | | echocardiogram | | | | | | Asymmetric septal | | | | | | hypertrophy (HCC) | | | | | | Mild aortic stenosis | | | | | | by prior | | | | | | echocardiogram | | | | | | Ascending aorta | | | | | | dilatation (HCC) | | + + +--------+ + + | CT Angiogram Head | Imaging | Routin | History of CEA | Expected: | | Neck w Contrast | | e | (carotid | 05/14/2020, Expires: | | | | | endarterectomy) | 05/14/2021 | | | | | Bilateral carotid | | | | | | artery disease, | | | | | | unspecified type | | | | | | (HCC) Bilateral | | | | | | carotid bruits Mild | | | | | | aortic stenosis by | | | | | | prior echocardiogram | | + + +--------+ + + | VAS Aorta Iliac | Imaging | Routin | Abdominal aortic | Expected: | | Duplex Limited | | e | aneurysm (AAA) | 05/14/2020, Expires: | | | | | without rupture | 05/14/2021 | | | | | (HCC) Ascending | | | | | | aorta dilatation | | | | | | (HCC) | | + + +--------+ + + | Basic Metabolic | Lab | Routin | Mixed | Expected: | | Panel | | e | hyperlipidemia | 05/14/2020, Expires: | | | | | Hypertension, | 05/14/2021 | | | | | unspecified type | | + + +--------+ + + documented as of this encounter Procedures + +--------+ + + + | Procedure Name | Priori | Date/Time | Associated Diagnosis | Comments | | | ty | | | | + +--------+ + + + | ECG 12 LEAD | Routin | 05/14/2020 | Coronary artery | Results for this | | | e | 1:12 PM | disease involving | procedure are in the | | | | PDT | coronary bypass | results section. | | | | | graft of tejon | | | | | | heart without angina | | | | | | pectoris Coronary | | | | | | artery disease | | | | | | involving tejon | | | | | | coronary artery of | | | | | | tejon heart without | | | | | | angina pectoris Hx | | | | | | of CABG Moderate | | | | | | mitral regurgitation | | | | | | by prior | | | | | | echocardiogram | | | | | | Asymmetric septal | | | | | | hypertrophy (HCC) | | | | | | Abdominal aortic | | | | | | aneurysm (AAA) | | | | | | without rupture | | | | | | (HCC) History of | | | | | | CEA (carotid | | | | | | endarterectomy) | | | | | | Bilateral carotid | | | | | | artery disease, | | | | | | unspecified type | | | | | | (HCC) Bilateral | | | | | | carotid bruits | | | | | | History of CVA in | | | | | | adulthood Facial | | | | | | droop Mixed | | | | | | hyperlipidemia | | | | | | Statin intolerance | | | | | | Supraventricular | | | | | | tachycardia (HCC) | | | | | | First degree | | | | | | atrioventricular | | | | | | block S/P RF | | | | | | ablation operation | | | | | | for arrhythmia Risk | | | | | | factors for | | | | | | obstructive sleep | | | | | | apnea Polycythemia | | | | | | vera (HCC) | | + +--------+ + + + documented in this encounter Results ECG 12 lead (05/14/2020 1:12 PM PDT) + + + + + + | Component | Value | Ref Range | Performed | Pathologist | | | | | At | Signature | + + + + + + | VENTRICULAR | 66 | BPM | [facility] | | | RATE EKG | | | | | + + + + + + | ATRIAL RATE | 66 | BPM | [facility] | | + + + + + + | P-R | 228 | ms | [facility] | | | INTERVAL | | | | | + + + + + + | QRS | 102 | ms | [facility] | | [...] + + | P WAVE AXIS | 55 | degrees | [facility] | | + + + + + + | QRS AXIS | 60 | degrees | [facility] | | + + + + + + | T AXIS | 11 | degrees | [facility] | | [...] of | | | | | | 11-OCT-2019 | | | | | | 16:56,Criteria for | | | | | | Inferior infarct are no | | | | | | longer PresentConfirmed | | | | | | by CONNIE GUTIERREZ | | | | | | ([id number]) on 05/14/2020 | | | | | | 2:47:00 PM | | | | + + [...] + + | Coronary artery disease involving coronary bypass graft of tejon heart without angina | | pectoris - Primary | + + | Coronary artery disease involving tejon coronary artery of tejon heart without | | angina pectoris | + + | Hx of CABG Postsurgical aortocoronary bypass status | + + | Moderate mitral regurgitation by prior echocardiogram Mitral valve disorders | + + | Asymmetric septal hypertrophy (HCC) Other hypertrophic cardiomyopathy | + + | Abdominal aortic aneurysm (AAA) without rupture (HCC) | + + | History of CEA (carotid endarterectomy) Other postprocedural status | + + | Bilateral carotid artery disease, unspecified type (HCC) | + + | Bilateral carotid bruits | + + | History of CVA in adulthood | + + | Facial droop Facial weakness | + + | Mixed hyperlipidemia | + + | Statin intolerance Other drug allergy | + + | Supraventricular tachycardia (HCC) Other specified cardiac dysrhythmias | + + | First degree atrioventricular block | + + | S/P RF ablation operation for arrhythmia Other postprocedural status | + + | Risk factors for obstructive sleep apnea | + + | Polycythemia vera (HCC) | + + | Obstruction of right vertebral artery | + + | Mild aortic stenosis by prior echocardiogram Aortic valve disorders | + + | Ascending aorta dilatation (HCC) Thoracic aortic ectasia | + + | Hypertension, unspecified type | + + documented in this encounter
--- OUTSIDE RECORDS SUMMARY | ~2020-05-18 | XMS | Encounter Summary ---
Demographics + + + | Address | [address] | | | [place] [address] | + + + | Home Phone | | + + + | Preferred Language | Unknown | + + + | Marital Status | | + + + | Protestant Affiliation | 1041 | + + + | Race | White | + + + | Ethnic Group | Not or | + + + Author + + + | Author | [facility] | | | and [place] | + + + | Organization | [facility] | | | and [place] | + + + | Address | Unknown | + + + | Phone | Unavailable | + + + Support + + + + + | Name | Relationship | Address | Phone | + + + + + | Tera Mccarthy | ECON | [place], [place] | | | | | [address] | | + + + + + | Alicia Mccarthy | ECON | [address] | | | | | [place] [address] | | + + + + + Care Team Providers + +------+ + | Care Thread Drawer Name | Role | Phone | + +------+ + PCP | Unavailable | + +------+ + Encounter Details +--------+ + + + + | Date | Type | Department | Care Team | Description | +--------+ + + + + | 08/22/ | Emergency | [facility] | Jose Alejandro Karmen | Pain in Limb | | 2008 | | [facility] | [facility] [address] | | | | | [facility] | [place], | | | | | [address] | [place] [address] | | | | | [place], [place] | [phone] | | | | | [address] | | | | | | [phone] | | | +--------+ + + + [...] [address] | | | | | | [place] [address] | | | | | | [phone] | | | | | | | | +--------+---------+ + + + documented as of this encounter Procedures + +--------+ + + + | Procedure Name | Priori | Date/Time | Associated Diagnosis | Comments | | | ty | | | | + +--------+ + + + | ART DPLX ARM UNILAT | Routin | 08/22/2009 | | Results for this | | RIGHT | e | 2:22 PM | | procedure are in the | | | | PST | | results section. | + +--------+ + + + documented in this encounter Results VENOUS DPLX OR VEIN MAPPING UNI (08/22/2009 2:22 PM PST) + + | Specimen | + + | | + + + + + | Narrative | Performed At | + + + | [id number] | | | Page 1 RADIOLOGY | | | ED W02 1/ | | | [facility] | | [facility] NAME: [place] [address] | | | | | | | | | DATE OF : 1940 ORDER NUMBER: | | | [id number] EXAM DATE/TIME: 08/22/2009 01:29 P ORDERING PHYSICIAN: | | | KARMEN TORRES ORDER DETAIL: [id number] / / HUS EXAM | | | DESCRIPTION: US LOWER EXT VENOUS UNI | | | | | | LOWER EXTREMITY VENOUS ULTRASOUND 08/22/2009 HISTORY Left leg | | | pain and swelling. Rule out DVT. FINDINGS Left lower extremity | | | ultrasound was performed from groin through the level of the calf | | | veins using compression rosado scale sonography, color mapping, and | | | pulsed Doppler imaging. The venous structures are normal in | | | appearance. The veins are compressible. Normal waveforms are noted | | | where sampled with expected results of calf augmentation of flow and | | | respiratory variance. Calf veins are visible with color mapping | | | images. IMPRESSION Normal venous ultrasound of the left lower | | | extremity. Read by FABIOLA MARTINEZ MD 08/22/2009 02:35 P | | | Electronically Signed by FABIOLA MARTINEZ MD 08/22/2009 04:04 P | | | P P [id number]/ | | | cc: FABIOLA MARTINEZ MD PHYSICIAN MARTHA PERAZA | | | MD REECE CRANDALL MD | | + + + + + | Procedure Note | + + | Alfred Landry Conversion - 05/21/2019 2:58 AM PDT | | [id number] Page 1 | | RADIOLOGY ED W02 1/ | | EMR | | [facility] NAME: [address] | | [place] [address] | | | | DATE OF : 1940 | | | | ORDER NUMBER: [id number] | | EXAM DATE/TIME: 08/22/2009 01:29 P | | ORDERING PHYSICIAN: KARMEN TORRES | | ORDER DETAIL: [id number] / / HUS | | EXAM DESCRIPTION: US LOWER EXT VENOUS UNI | | | | LOWER EXTREMITY VENOUS ULTRASOUND 08/22/2009 | | | | HISTORY | | Left leg pain and swelling. Rule out DVT. | | | | FINDINGS | | Left lower extremity ultrasound was performed from groin through the | | level of the calf veins using compression rosado scale sonography, color | | mapping, and pulsed Doppler imaging. | | | | The venous structures are normal in appearance. The veins are | | compressible. Normal waveforms are noted where sampled with expected | | results of calf augmentation of flow and respiratory variance. | | | | Calf veins are visible with color mapping images. | | | | IMPRESSION | | Normal venous ultrasound of the left lower extremity. | | | | | | Read by | | FABIOLA MARTINEZ MD 08/22/2009 02:35 P | | Electronically Signed by | | FABIOLA MARTINEZ MD 08/22/2009 04:04 P | | | | P | | P | | [id number]/ | | cc: FABIOLA MARTINEZ MD | | PHYSICIAN ED | | KARMEN TORRES MD | | REECE ELIZONDO MD | + + documented in this encounter Visit Diagnoses + + | Diagnosis | + + | Pain in soft tissues of limb Pain in limb | + + documented in this encounter"
--- OUTSIDE RECORDS SUMMARY | ~2020-05-18 | XMS | Encounter Summary ---
Demographics + + + | Address | [address] | | | [place] [address] | + + + | Home Phone | | + + + | Preferred Language | Unknown | + + + | Marital Status | | + + + | Adventism Affiliation | 1041 | + + + | Race | White | + + + | Ethnic Group | Not or | + + + Author + + + | Author | [facility] | | | and [place] | + + + | Organization | [facility] | | | and [place] | + + + | Address | Unknown | + + + | Phone | Unavailable | + + + Support + + + + + | Name | Relationship | Address | Phone | + + + + + | Tera Mccarthy | ECON | [place] | | | | | [address] | | + + + + + | Alicia Mccarthy | ECON | [address] | | | | | [place] [address] | | + + + + + Care Team Providers + +------+ + | Care Tray Room Worker Name | Role | Phone | + +------+ + | Matias Muñoz MD | PCP | | + +------+ + Reason for Visit + + + | Reason | Comments | + + + | Follow-up | Chronic cough | + + + Encounter Details +--------+---------+ + + + | Date | Type | Department | Care Team | Description | +--------+---------+ + + + | 05/09/ | Office | [facility] | Lio Mendez, | Cough (Primary Dx) | | 2012 | Visit | PULMONARY [address] | MD [address] | | | | | [place], | [place], [place] | | | | | [place] [address] | [address] | | | | | [phone] | | | +--------+---------+ + + + [...] + + + | Blood Pressure | 142/76 | 05/09/2013 9:22 AM | | | | | PDT | | + + + + + | Pulse | 78 | 05/09/2013 9:22 AM | | | | | PDT | | + + + + + | Temperature | - | - | | + + + + + | Respiratory Rate | - | - | | + + + + + | Oxygen Saturation | 96% | 05/09/2013 9:22 AM | | | | | PDT | | + + + + + | Inhaled Oxygen | - | - | | | Concentration | | | | + + + + + | Weight | 79.8 kg (176 lb) | 05/09/2013 9:22 AM | | | | | PDT | | + + + + + | Height | 175.3 cm (5' 9") | 05/09/2013 9:22 AM | | | | | PDT | | + + + + + | Body Mass Index | 25.99 | 05/09/2013 9:22 AM | | | | | PDT | | + + + + + documented in this encounter Patient Instructions Patient Instructions Lio Mendez MD - 05/09/2013 9:59 AM PDTPatient to visit with fernando is and decide regarding follow up.Electronically signed by Lio Mendez MD at 04/26 9:59 AM PDT documented in this encounter Progress Notes Lio Mendez MD - 05/09/2013 9:34 AM PDTFormatting of this note might be different f rom the original. Pulmonary Follow Up 05/09/2013 HPI Simon Mccarthy is a 73 y.o. male patient of Matias Muñoz here today for follow up of a chronic cough. It has been 1 month since our last clinic appointment. At their last visit, we initiated n asonex. Since the last visit he feels like their symptoms are stable. They have have not h ad any acute illnesses. They are currently on a regimen of Advair and prn Ventolin. They do feel like this medication regimen is working for them. Rarely uses Ventolin. Currently they are able to walk many miles at their own pace on level ground. They are not exercising regularly, rather active on farm. They are not enrolled in cardiac/pulmonary reha bilitation or other physical therapy. He does cough chronically, and does produce mucous. The mucous is clear in color and scant in amount. They have not had hemoptysis. He has not been evaluated for nocturnal oxygen and does not use it. He does not had symptoms of heartburn or reflux. Takes Prilosec. They have had symptoms of nasal congestion, runny nose or post nasal drip. Since our last clinic appointment Simon has applied Polysporin ointment to his left nares . The abnormality is "softer" but has not resolved. Frequent throat clearing and huffing is reported. 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 Sinusitis Chronic Renal stone Benign essential hypertension ASHD (arteriosclerotic heart disease) Ventricular pre-excitation Nasal and sinus discharge Sciatica Hyperlipidemia Trigeminy Myalgia s/p lovastatin + meningitis Atherosclerosis Glucose intolerance (impaired glucose tolerance) CAD (coronary artery disease) Allergies: Allergies Allergen Reactions Penicillins Medications: Current outpatient prescriptions:albuterol (VENTOLIN HFA) 90 mcg/puff inhaler, Inhale 2 puf fs into the lungs every 6 hours as needed., Disp: , Rfl: ; aspirin 325 mg tablet, Take 325 mg by mouth Daily., Disp: , Rfl: ; fluticasone-salmeterol (ADVAIR) 100-50 mcg/puff diskus i nhaler, Inhale 1 puff into the lungs Twice Daily., Disp: , Rfl: ; lovastatin (MEVACOR) 10 M G tablet, Take 10 mg by mouth nightly., Disp: , Rfl: metoprolol tartrate (LOPRESSOR) 25 mg tablet, Take by mouth. Take 1/2 tablet daily, Disp: , Rfl: ; mometasone (NASONEX) 50 mcg/nasal spray, 2 sprays by Nasal route every evening., D isp: 15 g, Rfl: 4; omeprazole (PRILOSEC) 10 mg capsule, Take 20 mg by mouth every morning ( before breakfast)., Disp: , Rfl: Review of Systems [...] tingling in hands or feet, vertigo, and fall or difficulty walking in past 6 months. Allergy Denies urticaria, allergic rash, hay fever. Objective BP 142/76 | Pulse 78 | Ht 1.753 m (5' 9") | Wt 79.833 kg (176 lb) | BMI 25.99 kg/m2 | SpO2 96% Appearance: Alert, cooperative, no distress, appears stated age Head: Normocephalic, without obvious abnormality, atraumatic Eyes: PERRL, conjunctiva/corneas clear Nose: Nares normal, septum midline, mucosa normal with the exception of a small area of abn ormality along the medial aspect of the left nares, no drainage or sinus tenderness Throat: Lips, [...] nodes normal Neurologic: Gait normal Data: Chest x-ray was done on 04/03/13 and was reviewed and interpreted in clinic today. It shows t he PA film shows what appears to be a small calcified pulmonary nodule in the left upper lob e. I do not appreciate the abnormality on the lateral. This calls into question as to whet her the density is truly parenchymal in origin. Assessment 1. Chronic cough-Simon is a 72-year-old nonsmoker who was apparently had a chronic cough for 20-30 years. The patient believes his symptoms worsen following nasal surgery. It katie nds as if he was evaluated by another ENT but no specific recommendations occurred. In 2003 Simon was seen [address] Dr[address] 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 Nadira rodriguez is currently receiving acid reflux therapy with omeprazole. In the past she's been t reated with antibiotics and systemic corticosteroids. At the time her last clinic appointment a trial of Nasonex for possible allergic rhinitis r elated post nasal drip cough occurred. Unfortunately this did not result in improvement of his symptoms. It is reasonable to discontinue the Nasonex. Simon does believe that his cough is improved with Advair. At the time of our last appointment a chest x-ray was obtained and no definitive cause of h is cough noted. At this point in time options discussed with the patient include performing a CT scan of th e chest to look for an etiology of his cough such as bronchiectasis. Another possible diagn ostic study would be to refer Simon to an ENT to perform a laryngoscopy looking for an upp er airway source of his cough. Given that the patient has a persistent nasal abnormality I suggested that he discuss the f indings further with Dr. Muñoz. Simon is unclear regarding which course he would like to pursue. He would like to discus s things further with his . Total duration of the patient's clinic appointment was in excess of 30 minutes. Greater th an 50% of this time was spent in counseling related to a diagnostic approach for a chronic c ough. Plan 1. Patient to discuss diagnostic options with his and contact her office regarding hi s preference. 2. Discontinue Nasonex. CC: Matias Muñoz documented in this encounter [...] [address] | | | | | | [place] [address] | | | | | | [phone] | | | | | | | | +--------+---------+ + + + documented as of this encounter Visit Diagnoses + + | Diagnosis | + + | Cough - Primary | + + documented in this encounter
--- OUTSIDE RECORDS SUMMARY | ~2020-05-18 | XMS | Encounter Summary ---
Demographics + + + | Address | [address] | | | [place] [address] | + + + | Home Phone | | + + + | Preferred Language | Unknown | + + + | Marital Status | | + + + | Confucianism Affiliation | 1041 | + + + | Race | White | + + + | Ethnic Group | Not or | + + + Author + + + | Author | [facility] | | | and Danielana | [...] [place] | | | | | [address] | | + + + + + | Alicia Mccarthy | ECON | [address] | | | | | [place] [address] | | + + + + + Care Team Providers + +------+ + | Care Manufacturing Inspector Name | Role | Phone | [...] | | | | Diagnoses | | Kali | | | | | | | Cornel | | | | | Supraventric | | MD Viktor | | | | | vanessa | | [address] | | | | | jamal | | [address] | | | | | ([facility]) | | [place] | | | | | Procedures | | [address] Phone: | | | | | CV EP | | [phone] | | | | | ABLATION SVT | | Fax: | | | | | | | [phone] | +--------+--------+ + + + + Encounter Details +--------+ + + + + | Date | Type | Department | Care Team | Description | +--------+ + + + + | 10/11/ | [facility] | [facility] | Cornel Bass | Supraventricular | | 2020 - | Encounter | [facility] | MD Viktor [address] | tachycardia (HCC); | | | | CARE FLOOR [address] | [address] | Supraventricular | | 10/12/ | | [address] | [place] [address] | tachycardia (HCC) | | 2020 | | [place], [place] | [phone] | | | | | [address] | | | | | | [phone] | | | +--------+ + + + [...] + + + | Blood Pressure | 113/54 | 10/12/2019 8:31 AM | | | | | PST | | + + + + + | Pulse | 72 | 10/12/2019 8:31 AM | | | | | PST | | + + + + + | Temperature | 37.3 C (99.1 F) | 10/12/2019 8:31 AM | | | | | PST | | + + + + + | Respiratory Rate | 18 | 10/12/2019 8:31 AM | | | | | PST | | + + + + + | Oxygen Saturation | 95% | 10/12/2019 8:31 AM | | | | | PST | | + + + + + | Inhaled Oxygen | - | - | | | Concentration | | | | + + + + + | Weight | 76.9 kg (169 lb 6.8 | 10/12/2019 3:55 AM | | | | oz) | PST [...] documented in this encounter Discharge Instructions Instructions Jeanette Monroy ARNP - 10/10/2019Formatting of this note might be [...] is normal to have occasional extra heart diila ts, but you should not have the [...] T heseinclude walking, climbing stairs, and doing corn cutter. Don't do any heavy physical activity for [...] longer to go away. Date Last Reviewed: 06/26/201619993906-1267 [employer] [address] [place] [address], [place] [address]. All righ ts reserved. This information is [...] You can't be awakened Date Last Reviewed: 07/13/201619993167-8549 [employer] [address] [place] [address]. All righ ts reserved. This information is [...] as of this encounter Progress Notes Jeanette MonroyMARY ANN - 10/12/2019 7:25 AM PSTFormatting of this [...] maintained sinus rhythm post procedurally. Only complaint [place] was of L groin access site discomfort [...] mcg 25-50 mcg Intravenous Q5 Min PRN Marcelo Camacho MD 25 mcg at 10/12/19 0733 labetalol (TRANDATE) 5 mg/mL injection 5 mg [...] Max:37.1 C (98.7 F) Vitals: 10/11/19 1900 10/11/19200510/11/19 2318 10/12/19 0355 BP: 165/85 153/77 117/61 [...] the past several months. 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 of a [...] with the findings and plan of the ad [facility] practice provider/house staff with further assessment and [...] Date Abdominal aortic aneurysm (AAA) without rupture ([facility]) 06/20/2019 Arthralgia Atherosclerosis Bronchiectasis ([facility]) Mild , lower lobes CAD (coronary artery [...] and sinus discharge PAD (peripheral artery disease) ([facility]) Polycythemia vera ([facility]) 2016 Renal stone on imaging Sciatica Sinusitis Chronic Stroke ([facility]) Trigeminy Past Surgical History: Procedure Laterality Date [...] first-degree AV block, no significant change from Novem 2018 Impression/Plan: Simon was seen today for [...] - ECG 12 lead; Standing - Void data integrity consultant to OR; Standing - Skin prep; Standing - sodium chloride 0.9% (NS) infusion - Basic Metabolic Panel; Standing - CBC with Differential; Standing 1) Supraventricular tachycardia - Mr. Mccarthy has noted episodes of sudden increases in his heart rate on and off for the past several months. 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 No changes to plan or assessment. Fernando cifuentes's held his Toprol 5 days pre procedurally [...] with the findings and plan of the [facility] practice provider/house staff with further assessment and decision-making as noted he reafter. documented in this encounter Miscellaneous Notes Plan of Enrique - Ericka Figueroa RN - 10/12/2019 10:41 [...] 25 mcg given per MAR lan of Care - Luz Esteban RN - 10/11/2019 6:06 PM PSTPt recovering well s/p SVT ablation. Pt complai nt with bedrest restrictions. Telemetry indicating SR w/ 1 deg, intermittent appearance of B BB. Pt c/o throb/mild tenderness to L femoral site. Bilateral femoral sites have remain unch anged since arrival to floor. 6: 16 PM [facility] Jeanette Monroy ARNP - 10/11/2019 4:49 [...] of state) POC reviewed with juan carlos mosqueda and son, d/c instructions and follow up plan reviewed - questions asked and answered with expressed understanding and agreement. Refer to Dr Bass's operative report and H&P for a dditional. MARY ANN Cates p Note - Ana burgess, Cornel Hoang MD - 10/11/2019 4:12 PM [facility] SERVICES OPERATIVE REPORT CORNEL BASS MD Patient: SIMON MCCARTHY Admitting: CORNEL HOOKERILINA MR #: [id number] LOC: PT TYPE: Adm Date: 10/11/2019 : [...] 1. Right superficial femoral vein, a short 8-Sierra Leonean sheath exchanged for an 8-[place]ierra [place]an SEPT sheath for quadripolar catheter placed in the high right atrium, exchanged for a 4 mm Blazer II large curved HTD ablation catheter in the right atrium/right ventricle, a short 7-S[place]an sheath for a deflectable decapolar catheter placed in the coronary sinus. 2. 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) Performed by: Kali Indication: supraventricular tachycardia Sedation: MAC by anesthesia [...] 3) continue outpatient medications 4) telemetry Dictated: [id number] documented in this encounter Plan of Treatment +--------+---------+ + + + | Date | Type | Specialty | Care Team | Description | +--------+---------+ + + + | 06/25/ | Office | Cardiology | Connie Alvarez | | | 2019 | Visit | | [address] | | | | | | [address] | | | | | | [place] [address] | | | | | | [phone] | | | | | | | [...] | | | Absolute | performed at [facility];[address] | [address] | LABORATORY | | | | Erika Mcke[address];[place] | | | | | | [address] | | | | + + + + + + + + | Specimen | + + | Blood | + + + + + + + | Performing | Address | City/State/Zipcode | Phone Number | | Organization | | | | + + + + + | [facility] | [address] | [place] [address] | [phone] | + + + + + Basic [...] | 9.3 | 8.5 - 10.5 | [facility] | | | | | mg/dL | LABORATORY | | + + + + + + | Estimated | 58 (L)Comment: GFR <60: | >60 | [facility] | | | GFR | CHRONIC [...] | | | | | performed at [facility];[address] | | | | | | [facility];[place], [place] | | | | | | [address] | | | | + + + + + + + + | Specimen | + + | Blood | + + + + + + + | Performing | Address | City/State/Zipcode | Phone Number | | Organization | | | | + + + + + | [facility] | [address] | [place] [address] | [phone] | + + + + + documented [...] ONCE PRN, Wheezing, | | | Starting [facility] 10/11/19 at 1620, | | | For [...] | | | | | | longer, bwtprt-ppe-ccpef use of | | | | | [...] | + +---+ + +-------+ +-------+---+---+ | losartan (COZAAR) tablet 50 mg | Given | 10/11/19 | 50 mg | | | | 50 mg, Oral, NIGHTLY, First dose | | 20 8:06 | | | | | on Sandra 10/11/19 at 2100 | | PM PST | [...] PRN, Nausea, Vomiting, | | | Starting Sandra 10/11/19 at 1620, | | | Post-op/Phase II | | + +---+ | | | + +---+ documented in this encounter
--- OUTSIDE RECORDS SUMMARY | ~2020-05-18 | XMS | Encounter Summary ---
Demographics + + + | Address | [address] | | | [place] [address] | + + + | Home Phone | | + + + | Preferred Language | Unknown | + + + | Marital Status | | + + + | Mormonism Affiliation | 1041 | + + + | Race | White | + + + | Ethnic Group | Not or | + + + Author + + + | Author | [facility] | | | and Danielana | + + + | Organization | [facility] | | | and [place] | + + + | Address | Unknown | + + + | Phone | Unavailable | + + + Support + + + + + | Name | Relationship | Address | Phone | + + + + + | Tera Mccarthy | ECON | [place], [place] | | | | | [address] | | + + + + + | Alicia Mccarthy | ECON | [address] | | | | | [place] [address] | | + + + + + Care Team Providers + +------+ + | Care Dry Cell Sealer Name | Role | Phone | + +------+ + | Brittany Meehan MD | PCP | | + +------+ + Reason for Visit +--------+--------+ + | Reason | Onset | Comments | | | Date | | +--------+--------+ + | Other | 10/03/ | | | | 2019 | | +--------+--------+ + Encounter Details +--------+ + + + + | Date | Type | Department | Care Team | Description | +--------+ + + + + | 10/03/ | Telephone | [facility] | Erica Schneider, | Other | | 2020 | | [facility] | [facility] | | | | | [address] | | | | | | [place], [place] | | | | | | [address] | | | | | | [phone] | | | +--------+ + + + [...] Telephone Encounter - Erica Schneider CMA - 10/03/2019 9:36 AM PSTCalled and left detai led with a call back number. ----- Message from Shannan Yu DO sent at 09/26/2019 8:26 PM PST ----- He has been having light headedness since his stroke. 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 I think that he needs to follow up with his neurologist regarding this symptom. Thanks ----- Message ----- From: Erica Schneider CMA Sent: 09/24/2019 1:10 PM PST To: Socorro Toney, Rotary Drier, # Patient stopped medication on Tuesday himself, and stated that the dizziness is better but h e is still light headed. Valentina if yo call this patient he stated it is okay to leave a detailed voicemail. ----- Message ----- From: Shannan Yu DO Sent: 09/24/2019 10:56 AM PST To: Socorro Toney, Rotary Drier, # He can try coming off Zetia to see if his dizziness improves. Thanks ----- Message ----- From: Erica Schneider CMA Sent: 09/21/2019 9:44 AM PST To: Nasir Lim MD, Shannan Yu DO Patient called and stated that he thinks [...] | | | | | [place] [address] | | | | | | [phone] | | | | | | | | +--------+---------+ + + + documented as of this encounter Visit Diagnoses Not on filedocumented in this encounter"
--- OUTSIDE RECORDS SUMMARY | ~2020-05-18 | XMS | Encounter Summary ---
Demographics + + + | Address | [address] | | | [place] [address] | + + + | Home Phone | | + + + | Preferred Language | Unknown | + + + | Marital Status | | + + + | Congregational Affiliation | 1041 | + + + | Race | White | + + + | Ethnic Group | Not or | + + + Author + + + | Author | [facility] | | | and Danielana | + + + | Organization | [facility] | | | and [place] | + + + | Address | Unknown | + + + | Phone | Unavailable | + + + Support + + + + + | Name | Relationship | Address | Phone | + + + + + | Tera Mccarthy | ECON | [place], [place] | | | | | [address] | | + + + + + | Alicia Mccarthy | ECON | [address] | | | | | [place] [address] | | + + + + + Care Team Providers + +------+ + | Care Heavy Equipment Supervisor Name | Role | Phone | + +------+ + PCP | Unavailable | + +------+ + Encounter Details +--------+ + + + + | Date | Type | Department | Care Team | Description | +--------+ + + + + | 03/25/ | Hospital | [facility] | Alexis Carlin, | Carotid art occ w/o | | 2009 - | Encounter | MEDICAL CENTER | [address] | [facility] | | | | INTENSIVE CARE UNIT | [address] | | | 03/26/ | | [address] | [place] [address] | | | 2009 | | [place], [place] | [phone] | | | | | [address] | | | | | | [phone] | | | +--------+ + + + [...] [address] | | | | | | [place] [address] | | | | | | [phone] | | | | | | | | +--------+---------+ + + + documented as of this encounter Visit Diagnoses + + | Diagnosis | + + | Occlusion and stenosis of carotid artery without mention of cerebral infarction | + + documented in this encounter"
--- OUTSIDE RECORDS SUMMARY | ~2020-05-18 | XMS | Encounter Summary ---
Demographics + + + | Address | [address] | | | [place] [address] | + + + | Home Phone | | + + + | Preferred Language | Unknown | + + + | Marital Status | | + + + | Adventism Affiliation | 1041 | + + + | Race | White | + + + | Ethnic Group | Not or | + + + Author + + + | Author | [facility] | | | and Danielana | + + + | Organization | [facility] | | | and [place] | + + + | Address | Unknown | + + + | Phone | Unavailable | + + + Support + + + + + | Name | Relationship | Address | Phone | + + + + + | Tera Mccarthy | ECON | [place], [place] | | | | | [address] | | + + + + + | Alicia Mccarthy | ECON | [address] | | | | | [place] [address] | | + + + + + Care Team Providers + +------+ + | Care Online Merchandising Specialist Name | Role | Phone | [...] + + | 10/03/ | Telephone | [facility] | Erica Schneider, | Other | | 2020 | | [facility] | [facility] | | | | | [address] | | | | | | [place], [place] | | | | | | [address] | | | | | | [phone] | | | +--------+ + + + [...] 09/24/2019 1:10 PM PST To: Socorro Toney, Crushing Mill Operator, # Patient stopped medication on Tuesday himself, and stated that the dizziness is better but h e is still light headed. Valentina if yo call this patient he stated it is okay to leave a detailed voicemail. ----- Message ----- From: Shannan Yu DO Sent: 09/24/2019 10:56 AM PST To: Socorro Toney, Crushing Mill Operator, # He can try coming off Zetia [...] | | | | | [place] [address] | | | | | | [phone] | | | | | | | | +--------+---------+ + + + documented as of this encounter Visit Diagnoses Not on filedocumented in this encounter"
--- OUTSIDE RECORDS SUMMARY | ~2020-05-18 | XMS | Encounter Summary ---
Demographics + + + | Address | [address] | | | [place] [address] | + + + | Home Phone | | + + + | Preferred Language | Unknown | + + + | Marital Status | | + + + | Evangelical Affiliation | 1041 | + + + | Race | White | + + + | Ethnic Group | Not or | + + + Author + + + | Author | [facility] | | | and [place] | + + + | Organization | [facility] | | | and [place] | + + + | Address | Unknown | + + + | Phone | Unavailable | + + + Support + + + + + | Name | Relationship | Address | Phone | + + + + + | Tera Mccarthy | ECON | [place], [place] | | | | | [address] | | + + + + + | Alicia Mccarthy | ECON | [address] | | | | | [place] [address] | | + + + + + Care Team Providers + +------+ + | Care Calcine Furnace Tender Name | Role | Phone | + [...] + + | 09/24/ | Telephone | [facility] | Erica Schneider, | Medication Reaction | | 2018 | | [facility] [place] | [facility] | | | | | [address] | | | | | | [facility] [place] | | | | | | [address] | | | | | | [phone] | | | +--------+ + + + [...] [address] | | | | | | [place] [address] | | | | | | [phone] | | | | | | | | +--------+---------+ + + + documented as of this encounter Visit Diagnoses Not on filedocumented in this encounter"
--- OUTSIDE RECORDS SUMMARY | ~2020-05-18 | XMS | Encounter Summary ---
Demographics + + + | Address | [address] | | | [place] [address] | + + + | Home Phone | | + + + | Preferred Language | Unknown | + + + | Marital Status | | + + + | Baptist Affiliation | 1041 | + + + | Race | White | + + + | Ethnic Group | Not or | + + + Author + + + | Author | [facility] | | | and [place] | + + + | Organization | [facility] | | | and [place] | + + + | Address | Unknown | + + + | Phone | Unavailable | + + + Support + + + + + | Name | Relationship | Address | Phone | + + + + + | Tera Mccarthy | ECON | [place], [place] | | | | | [address] | | + + + + + | Ailcia Mccarthy | ECON | [address] | | | | | [place] [address] | | + + + + + Care Team Providers + +------+ + | Care Mig Tig Welder Name | Role | Phone | + +------+ + PCP | Unavailable | + +------+ + Encounter Details +--------+ + + + + | Date | Type | Department | Care Team | Description | +--------+ + + + + | 02/20/ | Hospital | [facility] | Jose Montgomery MD | | | 2009 | Encounter | [facility] | [address] | | | | | CLINICAL DECISION | [address] | | | | | [address] | [place], [place] | | | | | [place], [place] | [address] | | | | | [address] | [phone] | | | | | [phone] | | | +--------+ + + + [...] [address] | | | | | | [place] [address] | | | | | | [phone] | | | | | | | | +--------+---------+ + + + documented as of this encounter Visit Diagnoses Not on filedocumented in this encounter"
--- OUTSIDE RECORDS SUMMARY | ~2020-05-18 | XMS | Encounter Summary ---
Demographics + + + | Address | [address] | | | [place] [address] | + + + | Home Phone | | + + + | Preferred Language | Unknown | + + + | Marital Status | | + + + | Adventism Affiliation | 1041 | + + + | Race | White | + + + | Ethnic Group | Not or | + + + Author + + + | Author | [facility] | | | and [place] | + + + | Organization | [facility] | | | and [place] | + + + | Address | Unknown | + + + | Phone | Unavailable | + + + Support + + + + + | Name | Relationship | Address | Phone | + + + + + | Tera Mccarthy | ECON | [place], [place] | | | | | [address] | | + + + + + | Alicia Mccarthy | ECON | [address] | | | | | [place] [address] | | + + + + + Care Team Providers + +------+ + | Care Bow Maker Custom Name | Role | Phone | + +------+ + | Brittany Meehan MD | PCP | | + +------+ + Reason for Visit +--------+--------+ + | Reason | Onset | Comments | | | Date | | +--------+--------+ + | Other | 10/17/ | | | | 2019 | | +--------+--------+ + Encounter Details +--------+ + + + + | Date | Type | Department | Care Team | Description | +--------+ + + + + | 10/17/ | Telephone | [facility] | Cornel Sibley | Other | | 2020 | | [facility] | MD [address] | | | | | [address] | [address] | | | | | [place], [place] | [place] [address] | | | | | [address] | [phone] | | | | | [phone] | | | +--------+ + + + [...] this encounter Miscellaneous Notes Telephone Encounter - Leola Norton - 10/17/2019 5:37 PM PSTLeft msg for pt to call t o schedule 3-4 week w/ Maryjo. Leola Norton documented in this enc ounter Plan of Treatment +--------+---------+ + + + | Date | Type | Specialty | Care Team | Description | +--------+---------+ + + + | 06/25/ | Office | Cardiology | Connie Alvarez | | | 2019 | Visit | | [address] | | | | | | [address] | | | | | | [place] [address] | | | | | | [phone] | | | | | | | | +--------+---------+ + + + documented as of this encounter Visit Diagnoses Not on filedocumented in this encounter"
--- OUTSIDE RECORDS SUMMARY | ~2020-05-18 | XMS | Encounter Summary ---
Demographics + + + | Address | [address] | | | [place] [address] | + + + | Home Phone | | + + + | Preferred Language | Unknown | + + + | Marital Status | | + + + | Oriental Orthodox Affiliation | 1041 | + + + | Race | White | + + + | Ethnic Group | Not or | + + + Author + + + | Author | [facility] | | | and [place] | + + + | Organization | [facility] | | | and [place] | + + + | Address | Unknown | + + + | Phone | Unavailable | + + + Support + + + + + | Name | Relationship | Address | Phone | + + + + + | Tera Mccarthy | ECON | [place] | | | | | [address] | | + + + + + | Alicia Mccarthy | ECON | [address] | | | | | [place] [address] | | + + + + + Care Team Providers + +------+ + | Care Dough Raiser Name | Role | Phone | + +------+ + | Brittany Meehan MD | PCP | | + +------+ + Reason for Visit +--------+ + | Reason | Comments | +--------+ + | Other | end of study | +--------+ + Encounter Details +--------+ + + + + | Date | Type | Department | Care Team | Description | +--------+ + + + + | 07/10/ | Documentati | [facility] | Ivana Howard, | Other (end of study) | | 2019 | on | CARDIOLOGY ANNA | Technologist | | | | | [address] | | | | | | [place] | | | | | | [address] | | | | | | [phone] | | | +--------+ + + + [...] documented as of this encounter Progress Notes Ivana Howard, Technologist - 07/10/2019 11:59 PM PDT Cardiac Edging Machine Feeder Date of Event Monitor: 07/10/19 Referring Physician: No Patient:Simon Mccarthy : 1940 Age: 79 y.o. male INDICATIONS: Supraventricular tachycardia, Tachycardia, unspecified Associated attestation - Jacob Sarkar MD - 08/01/2019 10:19 AM PSTSinus rhythm wit h HR ranging from 51 to 130 BPM with AVG HR of 68BPm. 0.05% PVC, 0.4% PAC burden noted. 41 runs of AT noted longest for 218 seconds at 155 BPM. 9 Patients triggered event recordings noted with no significant arrhythmia correlation. documented in this encounter Plan of Treatment +--------+---------+ + + + | Date | Type | Specialty | Care Team | Description | +--------+---------+ + + + | 06/25/ | Office | Cardiology | Connie Alvarez | | | 2019 | Visit | | [address] | | | | | | [address] | | | | | | [place] [address] | | | | | | [phone] | | | | | | | | +--------+---------+ + + + documented as of this encounter Visit Diagnoses + + | Diagnosis | + + | SVT (supraventricular tachycardia) (HCC) Other specified cardiac dysrhythmias | + + | Tachycardia, unspecified | + + documented in this encounter"
--- OUTSIDE RECORDS SUMMARY | ~2020-05-18 | XMS | Encounter Summary ---
Demographics + + + | Address | [address] | | | [place] [address] | + + + | Home Phone | | + + + | Preferred Language | Unknown | + + + | Marital Status | | + + + | Voodoo Affiliation | 1041 | + + + | Race | White | + + + | Ethnic Group | Not or | + + + Author + + + | Author | [facility] | | | and [place] | + + + | Organization | [facility] | | | and [place] | + + + | Address | Unknown | + + + | Phone | Unavailable | + + + Support + + + + + | Name | Relationship | Address | Phone | + + + + + | Tera Mccarthy | ECON | [place], [place] | | | | | [address] | | + + + + + | Alicia Mccarthy | ECON | [address] | | | | | [place] [address] | | + + + + + Care Team Providers + +------+ + | Care Fishing Tool Operator Name | Role | Phone | + +------+ + | Bob Banks MD | PCP | | + +------+ + Reason for Visit +--------+--------+ + | Reason | Onset | Comments | | | Date | | +--------+--------+ + | Pre-Op | 10/10/ | Called pt regarding pre op instructions | | | 2020 | | +--------+--------+ + Encounter Details +--------+ + + + + | Date | Type | Department | Care Team | Description | +--------+ + + + + | 10/10/ | Telephone | [facility] | Cornel Sibley | Pre-Op (Called pt | | 2019 | | CENTER CV INTRA OP | MD [address] | regarding pre op | | | | [address] | [address] | instructions) | | | | [place], [place] | [place] [address] | | | | | [address] | [phone] | | | | | [phone] | | | +--------+ + + + [...] [address] | | | | | | [place] [address] | | | | | | [phone] | | | | | | | | +--------+---------+ + + + documented as of this encounter Visit Diagnoses Not on filedocumented in this encounter"
--- OUTSIDE RECORDS SUMMARY | ~2020-05-18 | XMS | Encounter Summary ---
Demographics + + + | Address | [address] | | | [place] [address] | + + + | Home Phone | | + + + | Preferred Language | Unknown | + + + | Marital Status | | + + + | Mormon Affiliation | 1041 | + + + | Race | White | + + + | Ethnic Group | Not or | + + + Author + + + | Author | [facility] | | | and [place] | + + + | Organization | [facility] | | | and [place] | + + + | Address | Unknown | + + + | Phone | Unavailable | + + + Support + + + + + | Name | Relationship | Address | Phone | + + + + + | Tera Mccarthy | ECON | [place], [place] | | | | | [address] | | + + + + + | Alicia Mccarthy | ECON | [address] | | | | | [place] [address] | | + + + + + Care Team Providers + +------+ + | Care Sound Engineer Name | Role | Phone | + +------+ + | Matias Muñoz MD | PCP | | + +------+ + Encounter Details +--------+ + + + + | Date | Type | Department | Care Team | Description | +--------+ + + + + | 04/17/ | Orders Only | [facility] | Provider, | Atherosclerotic | | 2018 | | SYSTEM GENERIC OP | MD Letty [address] | heart disease of | | | | CONVERSION [address] | [address] | [place] coronary | | | | [address] [place], [place] | [place] [address] | artery without | | | | [address] | | angina pectoris; | | | | [phone] | | Mixed | | | | | | hyperlipidemia; | | | | | | Essential (primary) | | | | | | hypertension | +--------+ + + + + Social [...] [address] | | | | | | [place] [address] | | | | | | [phone] | | | | | | | | +--------+---------+ + + + + +------+--------+ + + | Name | Type | Priori | Associated Diagnoses | Order Schedule | | | | ty | | | + +------+--------+ + + | CK Total | Lab | Routin | Mixed | Expected: | | | | e | hyperlipidemia | 12/29/2018, Expires: | | | | | | 11/29/2019 | + +------+--------+ + + documented as of this encounter Visit Diagnoses + + | Diagnosis | + + | Atherosclerotic heart disease of [place] coronary artery without angina pectoris | | Coronary atherosclerosis of [place] coronary artery | + + | Mixed hyperlipidemia | + + | Essential (primary) hypertension Unspecified essential hypertension | + + documented in this encounter"
--- OUTSIDE RECORDS SUMMARY | ~2020-05-18 | XMS | Encounter Summary ---
Demographics + + + | Address | [address] | | | [place] [address] | + + + | Home Phone [...] | Author | [facility] | | | and [...] [place] | | | | | [address] | | + + + + + | Alicia Mccarthy | ECON | [address] | | | | | [place] [address] | | + + + + + Care Team Providers + +------+ + | Care Manager Drug Name | Role | Phone | + +------+ + | Brittany Meehan MD | PCP | | + +------+ + Reason for Referral Evaluate & Treat (Routine) + + + + + + + | Status | Reason | Specialty | Diagnoses / | Referred By | Referred To | | | | | Procedures | Contact | Contact | + + + + + + + | Authorized | Specialty | Cardiology | Diagnoses | Yu, | Kali, | | | Services | | SVT | DO Shannan | Cornel | | | Required | | (supraventri | [address] | MD Viktor | | | | | denis | [address] | [address] | | | | | tachycardia) | [address] | [address] | | | | | ([facility]) | [place], [place] | [place], [place] | | | | | | [address] | [address] Phone: | | | | | | Phone: | [phone] | | | | | | [phone] | Fax: | | | | | | Fax: | [phone] | | | | | | [phone] | | + + + + + + + Reason for Visit + + + | Reason | Comments | + + + | New Patient | NEW PATIENT | + + + Encounter Details +--------+---------+ + + + | Date | Type | Department | Care Team | Description | +--------+---------+ + + + | 08/15/ | Office | [facility] | Shannan Yu DO | SVT | | 2019 | Visit | CARDIOLOGY [place] | [address] | (supraventricular | | | | [address] | [address] [place] | tachycardia) (HCC) | | | | [address] [place], [place] | [id number] | (Primary Dx); | | | | [address] | | Cerebrovascular | | | | [phone] | | accident (CVA), | | | | | | unspecified | | | | | | mechanism (HCC); | | | | | | Dizziness; Coronary | | | | | | artery disease, | | | | | | angina presence | | | | | | unspecified, | | | | | | unspecified vessel | | | | | | or lesion type, | | | | | | unspecified whether | | | | | | [place]ipe[place] or | | | | | | transplanted heart; | | | | | | PVD (peripheral | | | | | | vascular disease) | | | | | | ([facility]); Hypertension, | | | | | | [...] + + + | Blood Pressure | 120/70 | 08/15/2019 10:51 AM | | | | | PST | | + + + + + | Pulse | 62 | 08/15/2019 10:51 AM | | | | | PST | | + + + + + | Temperature | - | - | | + + + + + | Respiratory Rate | - | - | | + + + + + | Oxygen Saturation | 94% | 08/15/2019 10:51 AM | | | | | PST | | + + + + + | Inhaled Oxygen | - | - | | | Concentration | | | | + + + + + | Weight | 76.7 kg (169 lb) | 08/15/2019 10:51 AM | | | | | PST | | + + + + + | Height | 175.3 cm (5' 9") | 08/15/2019 10:51 AM | | | | | PST | | + + + + + | Body Mass Index | 24.96 | 08/15/2019 10:51 AM | | | | | PST [...] documented as of this encounter Progress Notes Shannan Yu DO - 08/15/2019 10:40 AM PST [facility] Cardiology Cardiology Follow Up Note Reason for Consultation: follow up History Obtained From: patient HISTORY OF PRESENT ILLNESS: Cardiac Problem List 1. Ischemic Stroke 2. SVT 3. Coronary artery disease s/p 6 vessel CABG 2008 4. PVD s/p CEA 2009 5. HTN 6. Hyperlipidemia Non Cardiac Problem list 7. COPD The patient is a 79-year-old male, who is known to be previously from a hospitalization on 05/30/2019, during which I was consulted to see the patient for an episode of SVT. The jose alberto ent had noticed elevated heart rates at home with heart rates going up into the 150s. He no ticed a warm sensation over his chest along with palpitations and some associated shortness of breath. He had a sustained episode of SVT during the hospitalization with replication o f his symptoms. EKG during an episode demonstrated a narrow complex regular tachycardia wit h retrograde P waves consistent with the possible reentrant arrhythmia. There were no flutt er waves on the EKG. He spontaneously converted back to normal sinus rhythm and his metopro lol dose was increased. We had also discussed vagal maneuvers to try to break these episode s of SVT. He has since been following up with Poly Kim, who added digoxin 125 mcg by des king daily to his medical regimen for symptom control of his SVT. He was last seen by her on 09/30/2018. He has been complaining of persistent dizziness, which he describes as lighthead edness. He reports that this symptom has been ongoing ever since his stroke. He has attrib uted it to several of his medications that he has been on in the past. He admits to dizzine ss in the office today. Orthostatics were obtained in the office, which were unremarkable. The patient reports that he is "dizzy all day everyday". Poly had ordered a 2-week a mbulatory monitor, which demonstrated normal sinus rhythm with an average heart rate of 68 b eats per minute. He had 41 episodes of SVT during that monitoring. The longest and fastest of which was 218 seconds at 155 beats per minute. The patient reported episodes of dizzine ss during this monitor, which correlated to normal sinus rhythm. He reports that since Estelle toure saw him, he has had some episodes of the warmth over his chest and shortness of breath, which he gets typically whenever he has the SVT. He has tried vagal maneuvers and has been successful at breaking these episodes with vagal maneuvers recently. He reports that he had about 2-3 episodes of SVT yesterday. He believes that his digoxin may be contributing to h is dizziness and would like to try going off of it. 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 Hyperlipidemia Hyperlipidemia Hypertension Myalgia s/p lovastatin + meningitis Nasal and sinus discharge Occlusion of carotid artery PAD (peripheral artery disease) ([facility]) Polycythemia vera ([facility]) 2016 Renal stone Sciatica Sinusitis Chronic Stroke ([facility]) Trigeminy Ventricular pre-excitation Past Surgical History: Procedure Laterality Date COLONOSCOPY CORONARY ARTERY BYPASS GRAFT 2008 6 vessel/ RLE veing harvest CORONARY ARTERY BYPASS GRAFT EYE SURGERY L and R CEA 2010 NASAL SEPTUM SURGERY OTHER SURGICAL HISTORY CATARACT EXTRACTION TONSILLECTOMY AND ADENOIDECTOMY MEDICATIONS Home Medications Outpatient Encounter Medications as of 08/15/2019 Medication Sig Dispense Refill clopidogrel (PLAVIX) 75 mg tablet Take 1 tablet by mouth Daily. 90 tablet 3 [DISCONTINUED] digoxin (LANOXIN) 125 mcg tablet Take 1 tablet by mouth Daily. 30 tablet 11 [DISCONTINUED] fenofibrate (LOFIBRA) 54 mg tablet Take 1 tablet by mouth Daily. (Patien t not taking: Reported on 08/15/2019) 30 tablet 11 fluticasone (FLONASE) 50 mcg/nasal spray 1 spray by Nasal route Daily. fluticasone-salmeterol (ADVAIR, WIXELA INHUB) 250-50 mcg/puff diskus inhaler Inhale 1 p uff into the lungs 2 (two) times daily. losartan (COZAAR) 50 mg tablet Take 1 tablet by mouth nightly. 90 tablet 3 metoprolol succinate (TOPROL-XL) 100 mg ER tablet Take 1 tablet by mouth Daily. 90 tabl et 3 [DISCONTINUED] metoprolol succinate (TOPROL-XL) 50 mg 24 hr tablet Take 1 tablet by ilir th Daily. 90 tablet 3 raNITIdine (ZANTAC) 150 mg tablet Take 150 mg by mouth Daily. No facility-administered encounter medications on file as of 08/15/2019. Allergies Allergies Allergen Reactions Penicillins Rash Statins Other (See Comments) Cramping in the legs, muscle weakness Pravastatin Other (See Comments) FAMILY HISTORY Family History Problem Relation Age of Onset Coronary artery disease Mother * Mother DJD High cholesterol Mother Hypertension Mother Kidney disease Brother * Brother AAA SOCIAL HISTORY Social History Socioeconomic History Marital status: Spouse name: Not on file Number of children: Not on file Years of education: Not on file Highest education level: Not on file Occupational History Not on file Social Needs Financial resource strain: Not on file Food insecurity: Worry: Not on file Inability: Not on file Transportation needs: Medical: Not on file Non-medical: Not on file Tobacco Use Smoking status: Never Smoker Smokeless tobacco: Former User Types: Chew Substance and Sexual Activity Alcohol use: Not Currently Comment: Alcoholic Drinks/day: occasionally Drug use: No Comment: Drug use: No Sexual activity: Not on file Lifestyle Physical activity: Days per week: Not on file Minutes per session: Not on file Stress: Not on file Relationships Social connections: Talks on phone: Not on file Gets together: Not on file Attends yazdanism service: Not on file Active member of club or organization: Not on file Attends meetings of clubs or organizations: Not on file Relationship status: Not on file Intimate partner violence: Fear of current or ex partner: Not on file Emotionally abused: Not on file Physically abused: Not on file Forced sexual activity: Not on file Other Topics Concern Not on file Social History Narrative Not on file PHYSICAL EXAM Vital Signs: BP 120/70 | Pulse 62 | Ht 1.753 m (5' 9") | Wt 76.7 kg (169 lb) | SpO2 94% | BMI 24.96 kg/m Orthostatic vital signs Lying 122/64, 62 Sitting 116/70, 64 Standing 132/80, 69 Physical Exam GENERAL: Well developed, well nourished, in no distress. Appears approximately stated age . HEENT: Normocephalic, atraumatic. EYES: PERRL, sclerae anicteric, no xanthelsasmas NECK: No JVD, lymphadenopathy, thyromegaly, bruits. Carotid pulses are 2+ bilaterally LUNGS: Clear bilaterally, with no rales, rhonchi or wheezing noted, respirations unlabored HEART: Nondisplaced PMI, regular rate and rhythm, S1, S2 normal. No murmurs, rubs or gall ops noted. ABDOMEN: Soft, nontender, no organomegaly, masses or bruits. Bowel sounds are normal in a ll 4 quadrants. EXTREMITIES: No edema. Radial pulses 2+ bilaterally. DP and PT pulses are 2+ bilaterally. SKIN: Warm and dry, capillary refill is normal, no lesions. NEUROLOGIC: Awake, alert and oriented x 3. No focal motor deficits. PSYCHIATRIC: Appropriate, affect appears normal DATA Lab Results Component Value Date WBC 4.73 08/12/2019 HGB 14.5 08/12/2019 HCT 43.2 08/12/2019 PLT 181 08/12/2019 Lab Results Component Value Date INR 1.1 08/11/2019 PTT 28 08/11/2019 Lab Results Component Value Date NA 141 08/12/2019 K 4.3 08/12/2019 CL 111 (H) 08/12/2019 CO2 26 08/12/2019 BUN 18 08/12/2019 CREA 1.1 08/12/2019 MG 1.9 08/11/2019 AST 9 (L) 08/12/2019 ALT 15 08/12/2019 DIGOXIN 0.6 (L) 08/11/2019 BNP 122.18 (H) 08/11/2019 TSH 3.630 05/28/2019 Lab Results Component Value Date CHOL 156 08/11/2019 TRIG 123 08/11/2019 HDL 38 (L) 08/11/2019 LDL 93 08/11/2019 TSH 3.630 05/28/2019 CARDIAC PROCEDURES/IMAGING Angiogram: 2008:Multivessel occlusive coronary artery disease: LAD diagonal and left circumflex ostium of ramus, RCA, right PDA, distal left main stenosis estimated at 60 % to 70%.Normal left ventricular systolic function. Normal left ventricular pressures. - CAB07/02/2009:CABG x 6: PFEIFFER to LAD, saphenous vein graft to diagonal, sequential to r amus, saphenous vein to marginal, saphenous vein to PDA, saphenous vein to distal right) Dr. Carlin Right leg V CU ECHO Last echo: 05/17/2019 ([facility]): EF 75%. LV normal in [...] no clot. No ASD, no VSD Echo: 05/16/2018:Technically adequate study. Resting bradycardia. EF 60-65 percent. LV normal in size and wall thickness. Moderate asymmetric septal hypertrophy with septal thickness 16-19 mm. Mild diastolic dysfunction, grade 1. RV normal in size and function. Normal size atria. Aortic valve mildly calcified, mild aortic regurgitation and no aort ic stenosis. Mitral valve thickened with nodular degeneration, mild to moderate MR. Mild TR. No pulmonary hypertension. Mild NH. No pericardial effusion. IVC not well visua lized. No mass, no clot VASCULAR PROCEDURES/ IMAGING Ct Angiogram Head Neck Acute Stroke:05/16/2019:[facility] w/ stroke: 1. The right [...] 3. No acute intracranial findings Brain MRI:05/17/2019: [facility] w/ stroke: Abnormal diffusion restriction is seen in the right centrum semiovale compatible with an area of acute infarction. CEA: 02/2010:Right and left carotid artery endarterectomy Last carotid ultrasound: 04/26/2019:( [facility]) Atheromatous changes in the carotid arteries [...] status post CEA minimal thickening. Right subclavian a rtery 20-49 percent stenosis., 20-49 percent stenosis to left subclavian artery EKG/EVENT MONITOR EK2013.Sinus rhythm with first-degree AV block, incomplete right bundle branch block, ST elevation to anterior leads. Rate 67 bpm, NH 226 ms, QRS 108 ms, QTC 388 ms EK: Normal sinus rhythm, incomplete bundle branch block, prior septal infarct . First-degree A-V block. Rate 80 bpm, NH 206 ms, QRS 106 ms, QTC 420 ms (personally rev iewed by me in the office today and when compared to EKG done in 2013 NH interval has decrea sed ) EK05/31/2018:Sinus rhythm with first-degree AV block, incomplete right bundle branch blo ck. Old septal infarct Rate 60 bpm, NH 230 ms, QRS 108 ms, QTC 390 ms him a tracing pers onally reviewed by me, similar morphology to July 2017 EKG, except for increased first-d egree block EK05/16/2019: Sinus rhythm with first-degree AV block, incomplete right bundle branch blo ck, LVH, old septal infarct w/ low voltage QRS leads II aVF. Rate 61 bpm, NH 226 ms, QRS 11 0 ms, QTC 410 ms, tracing personally reviewed by me EK05/23/2019: Sinus rhythm with first-degree AV block, stable incomplete right bundle bra nch block, LVH, old septal infarct. Rate 70 bpm, NH 230 ms, QRS 140 ms, QTC 410 ms, tracing personally reviewed by me, and similar morphology to previous EKG performed in April 2019, in May 2018 EK05/30/2019:( [facility]) Sinus rhythm with first-degree block, incomplete right bundle branch block, old inferior infarct. Rate 76 bpm, NH 222 ms, QRS 106 ms, QTC 398 ms tracing person ally reviewed by me. EK06/01/2019: ( [facility]) SVT, incomplete right bundle branch block. Rate 124 bpm, QRS 108 ms , QTC 451 ms, tracing personally reviewed by me EK06/19/2019: ( metoprolol XL 50 mg) sinus rhythm with first-degree AV block and septal i nfarct, incomplete right bundle branch block. Rate 64 bpm, NH 224 ms, QRS 108 ms, QTC 402 m s, tracing personally reviewed by me EK07/31/2019: (metoprolol XL 50 mg /Digoxin 125 mcg) Sinus rhythm with first-degree AV bl ock, incomplete right bundle branch block, previous anterior [place], rate 69 bpm, NH 240 ms, QRS 102 ms, QTC 390 ms, tracing personally reviewed by me, and similar morphology to previous E KG performed on June 19, 2019 2 week [employer] 07/25/19 Normal sinus rhythm average heart rate 68 bpm, 130 to 51 bpm One episode of nonsustained ventricular tachycardia for 5 beats at 130 bpm There were 41 runs of SVT the longest and fastest of which was 155 bpm for 218 seconds LABS: Labs: 03/14:Lipids:Cholesterol 195, triglycerides 74, HDL 60, LDL 120, ratio 3.3. Sodium 141, potassium 4.2, chloride 108, glucose 89, BUN 27, creatinine 1.27, GFR 55 AST 1 4, ALT 12, alk phos 75, total bilirubin 0.6, albumin 4, A1c 5.9. CBC:WBC 7.9, hemoglobin 14.4, hematocrit 52.6, platelets 241 Labs: 10/19/2017:Lipids: (No statin). Cholesterol 193, triglycerides 140, HDL 44.4, LDL 121, LDL VLDL 28, ratio 4.3, non-HDL cholesterol 149. CMP: Sodium 141, potassium 4.3, chlo ride 106, glucose 74, BUN 21, creatinine 1.11, GFR 64, AST 16, ALT 10, alk phos 70, total bi lirubin 0.8, albumin 3.8. Hemoglobin A1c 5.7. PSA 0.94. CBC:WBC 5.3, hemoglobin 14.5 , hematocrit 44.3, platelets 215, ESR 0 Labs: 02/14/2018:Iron deficiency panel:Iron 21.07, TIBC 436, percent sat 4.8, ferritin 1 8.04, U TIBC 415, transferrin 311.29. CMP: Sodium 141, potassium 4.9, chloride 106, glucos e 84, BUN 16, creatinine 1.19, AST 18, ALT 12, alk phos 70, total bilirubin 0.5, albumin 3.8 .Hemoglobin A1c6. (126). Vitamin B12 298.7. CBC:WBC 8.6, hemoglobin 12.5, camille tocrit 30.8, platelets 235 Labs: 11/27/2018: Lipids: Cholesterol 208, triglycerides 103, HDL 49.9, LDL 138, VLDL 21, rat io 4.2, non-HDL cholesterol 158. CMP: Sodium 142, potassium 4.6, chloride 107, glucose 124 , BUN 20, creatinine 1.23, AST 20, ALT [...] creatin ine 1.3, GFR 53 digoxin 1.2 ASSESSMENT & PLAN 1. Ischemic Stroke 2. SVT 3. Dizziness 4. Coronary artery disease s/p 6 vessel CABG 2008 5. PVD s/p CEA 2009; severe stenosis of right vertebral artery 6. HTN 7. Hyperlipidemia 8. COPD 9. Dilated ascending Aorta -The patient is a 79-year-old male who presents to the cardiology office to follow-up with the above past medical history. Recently, his main complaint has been persistent dizziness. He reports that he feels dizzy "all day every day". The dizziness is described as a light headedness. His orthostatics were negative in the office today. His blood pressure was nor mal and heart rate was normal while he was actively having symptoms. He recently underwent a 2-week ambulatory monitor during which he reported dizziness which correlated with sinus r hythm. I think that his symptom may be neurologic, he reports that it has been an issue katerin r since his recent stroke. He does not seem to have a clear cardiac etiology of his dizzine ss. He wishes to try to go off of digoxin to see if it helps. He has been having intermitt ent episodes of SVT which he has been able to break with Valsalva maneuvers. We discussed t hat this may become worse if he discontinues digoxin. He demonstrated understanding. We wi ll increase the dose of metoprolol. We discussed EP referral for further management of his SVT. -Discontinue digoxin -Increase metoprolol succinate to 100 mg by mouth daily -Continue losartan 50 mg by mouth nightly -Continue Plavix 75 mg by mouth daily -The patient is intolerant to statins - will place ambulatory referral to EP for management of his SVT - Follow up with neurology as scheduled. - Will plan to follow up ascending Ao with echo in one year. Thank you for allowing me to participate in the care of this patient. Primary Care Physician: MD Shannan Knowles DO 08/21/2019 documented in this enco unter Plan of Treatment +--------+---------+ + + + | Date | Type | Specialty | Care Team | Description | +--------+---------+ + + + | 06/25/ | Office | Cardiology | Connie Alvarez | | | 2020 | Visit | | [address] | | | | | | [address] | | | | | | [place] [address] | | | | | | [phone] | | | | | | | | +--------+---------+ + + + + + +--------+ + + | Name | Type | Priori | Associated Diagnoses | Order Schedule | | | | ty | | | + + +--------+ + + | Ambulatory referral | Outpatient | Routin | SVT | Ordered: 08/15/2019 | | to [facility] | Referral | e | (supraventricular | | | Electrophysiology | | | tachycardia) (HCC) | | | [facility] | | | | | + + +--------+ + + documented as of this encounter Visit Diagnoses + + | Diagnosis | + + | SVT (supraventricular tachycardia) (HCC) - Primary Other specified cardiac | | dysrhythmias | + + | Cerebrovascular accident (CVA), unspecified mechanism (HCC) | + + | Dizziness Dizziness and giddiness | + + | Coronary artery disease, angina presence unspecified, unspecified vessel or lesion | | type, unspecified whether [place] or transplanted heart | + + | PVD (peripheral vascular disease) (HCC) Peripheral vascular disease, unspecified | + + | Hypertension, unspecified type | + + documented in this encounter
--- OUTSIDE RECORDS SUMMARY | ~2020-05-18 | XMS | Encounter Summary ---
Demographics + + + | Address | [address] | | | [place] [address] | + + + | Home Phone | | + + + | Preferred Language | Unknown | + + + | Marital Status | | + + + | Amish Affiliation | 1041 | + + + | Race | White | + + + | Ethnic Group | Not or | + + + Author + + + | Author | [facility] | | | and [place] | + + + | Organization | [facility] | | | and [place] | + + + | Address | Unknown | + + + | Phone | Unavailable | + + + Support + + + + + | Name | Relationship | Address | Phone | + + + + + | Tera Mccarthy | ECON | [place], [place] | | | | | [address] | | + + + + + | Alicia Mccarthy | ECON | [address] | | | | | [place] [address] | | + + + + + Care Team Providers + +------+ + | Care Pollution Control Chemist Name | Role | Phone | + +------+ + | Matias Muñoz MD | PCP | | + +------+ + Encounter Details +--------+ + + + + | Date | Type | Department | Care Team | Description | +--------+ + + + + | 07/20/ | Orders Only | [facility] | Nasir Lim, | | | 2016 | | CARDIOLOGY [place] | [address] | | | | | [place] [address] | [place] [address] | | | | | [place], [place] | [phone] | | | | | [address] | | | | | | [phone] | | | +--------+ + + + [...] [address] | | | | | | [place] [address] | | | | | | [phone] | | | | | | | | +--------+---------+ + + + documented as of this encounter Procedures + +--------+ + + + | Procedure Name | Priori | Date/Time | Associated Diagnosis | Comments | | | ty | | | | + +--------+ + + + | VAS CAROTID DUPLEX | Routin | 07/20/2017 | | Results for this | | BILATERAL | e | 2:35 PM | | procedure are in the | | | | PDT | | results section. | + +--------+ + + + documented in this encounter Results VAS Carotid Duplex Bilateral (07/20/2017 2:35 PM PDT) + + | Specimen | + + | | + + + + + | Impressions | Performed At | + + + | 1. Minimal intimal thickening in right internal carotid artery S/P | | | [facility]. 2. Minimal intimal thickening in left internal carotid artery | | | S/P [facility]. | | + + + + + + | Narrative | Performed At | + + + | Patient Name: ROBBIE MCCARTHY Date of : 1940 | | | Performing Physician: Nasir Lim MD, | | | FACC, FACP, FASNC | | | | | | INDICATIONS Hx of bilateral CEA CONCLUSIONS | | | 1. Minimal intimal thickening in right internal carotid | | | artery S/P [facility]. 2. Minimal intimal thickening in left internal | | | carotid artery S/P [facility]. FINDINGS -------- Right CCA: The right | | | common carotid artery is patent and demonstrates mild atherosclerotic | | | plaque in the common carotid artery corresponding with a 1-49% right | | | common carotid stenosis. Right ICA: Minimal intimal thickening in | | | right internal carotid artery. Right ECA: The right external carotid | | | artery is patent with no evidence of stenosis. Right Vertebral: The | | | right vertebral artery demonstrates antegrade dampened flow. Right | | | Subclavian Artery: The Doppler flow velocities within the right | | | subclavian artery are elevated with window filling suggesting 20-49% | | | stenosis. Left CCA: The left common carotid artery demonstrates | | | mild atherosclerotic plaque in the common carotid artery corresponding | | | with 1-49% stenosis. Left ICA: Minimal intimal thickening in left | | | internal carotid artery. Left ECA: Minimal intimal thickening in the | | | left external carotid artery. Left Vertebral: The left vertebral | | | artery demonstrates antegrade flow. Left Subclavian Artery: The | | | Doppler flow velocities within the left subclavian artery are elevated | | | with window filling suggesting 20-49% stenosis. MEASUREMENTS | | | CCA AC: 60 deg CCA ED: 22.02 cm/s CCA ED: | | | 8.59 cm/s CCA ED: 10.07 cm/s CCA ED: 12.24 cm/s CCA PS: | | | 107.19 cm/s CCA PS: 55.38 cm/s CCA PS: 66.23 cm/s CCA PS: | | | 85.16 cm/s ICA/CCA ED: 0.84 ICA/CCA ED: 1.72 ICA/CCA PS: | | | 0.50 ICA/CCA PS: 0.90 ECA AC: 44 deg ECA AC: 48 deg ECA | | | ED: 10.79 cm/s ECA ED: 6.23 cm/s ECA PS: 56.46 cm/s ECA | | | PS: 73.89 cm/s ICA AC: 45 deg ICA AC: 26 deg ICA AC: 14 | | | deg ICA AC: 60 deg ICA AC: 57 deg ICA AC: 59 deg ICA ED: | | | 18.58 cm/s ICA ED: 21.18 cm/s ICA ED: 17.02 cm/s ICA ED: | | | 21.15 cm/s ICA ED: 12.06 cm/s ICA ED: 9.64 cm/s ICA PS: | | | 53.90 cm/s ICA PS: 59.28 cm/s ICA PS: 48.93 cm/s ICA PS: | | | 76.88 cm/s ICA PS: 34.20 cm/s ICA PS: 49.05 cm/s SUBC PS: | | | 120.76 cm/s SUBC PS: 144.19 cm/s VERT AC: 45 deg VERT ED: | | | 16.83 cm/s VERT ED: 4.05 cm/s VERT PS: 50.76 cm/s VERT PS: | | | 12.81 cm/s Extrusion Manager: ARMIN Authenticated by: Nasir Lim MD, | | | FACC, FACP, FASNC Report Date/Time: -- [id number] | | + + + + + | Procedure Note | + + | Alfred Landry Conversion - 05/17/2019 7:44 PM PDT Patient Name: ROBBIE MCCARTHY | | of : 1940 Performing Physician: Nasir Lim MD, [facility], | | FACP, | | FASNC INDICATIONS--------- | | --Hx of bilateral CEA CONCLUSIONS 1. Minimal intimal thickening in right | | internal carotid artery S/P CEA.2. Minimal intimal thickening in left internal carotid | | artery S/P CEA. FINDINGS--------Right CCA: The right common carotid artery is patent and | | demonstrates mild atherosclerotic plaque in the common carotid artery corresponding | | with a 1-49% right common carotid stenosis.Right ICA: Minimal intimal thickening in | | right internal carotid artery.Right ECA: The right external carotid artery is patent | | with no evidence of stenosis.Right Vertebral: The right vertebral artery demonstrates | | antegrade dampened flow.Right Subclavian Artery: The Doppler flow velocities within the | | right subclavian artery are elevated with window filling suggesting 20-49% | | stenosis.Left CCA: The left common carotid artery demonstrates mild atherosclerotic | | plaque in the common carotid artery corresponding with 1-49% stenosis.Left ICA: Minimal | | intimal thickening in left internal carotid artery.Left ECA: Minimal intimal thickening | | in the left external carotid artery.Left Vertebral: The left vertebral artery | | demonstrates antegrade flow.Left Subclavian Artery: The Doppler flow velocities within | | the left subclavian artery are elevated with window filling suggesting 20-49% stenosis. | | MEASUREMENTS CCA AC: 60 degCCA ED: 22.02 cm/sCCA ED: 8.59 cm/sCCA ED: | | 10.07 cm/sCCA ED: 12.24 cm/sCCA PS: 107.19 cm/sCCA PS: 55.38 cm/sCCA PS: | | 66.23 cm/sCCA PS: 85.16 cm/Jim/CCA ED: 0.84ICA/CCA ED: 1.72ICA/CCA PS: | | 0.50ICA/CCA PS: 0.90ECA AC: 44 degECA AC: 48 degECA ED: 10.79 cm/sECA ED: 6.23 | | cm/sECA PS: 56.46 cm/sECA PS: 73.89 cm/Jim AC: 45 degICA AC: 26 degICA AC: | | 14 degICA AC: 60 degICA AC: 57 degICA AC: 59 degICA ED: 18.58 cm/Jim ED: | | 21.18 cm/Jim ED: 17.02 cm/Jim ED: 21.15 cm/Jim ED: 12.06 cm/Jim ED: 9.64 | | cm/Jim PS: 53.90 cm/Jim PS: 59.28 cm/Jim PS: 48.93 cm/Jim PS: 76.88 cm/Jim | | PS: 34.20 cm/Jim PS: 49.05 cm/sSUBC PS: 120.76 cm/sSUBC PS: 144.19 cm/sVERT AC: | | 45 degVERT ED: 16.83 cm/sVERT ED: 4.05 cm/sVERT PS: 50.76 cm/sVERT PS: 12.81 | | cm/s Extrusion Manager: DHAuthenticated by: Nasir Lim MD, FACC, FACP, [place]eport | | Date/Time: -- [id number] IMPRESSION: 1. Minimal intimal thickening in right | | internal carotid artery S/P CEA.2. Minimal intimal thickening in left internal carotid | | artery S/P CEA. | |CCA ED: 22.02 cm/s | |CCA ED: 8.59 cm/s | |CCA ED: 10.07 cm/s | |CCA ED: 12.24 cm/s | |CCA PS: 107.19 cm/s | |CCA PS: 55.38 cm/s | |CCA PS: 66.23 cm/s | |CCA PS: 85.16 cm/s | |ICA/CCA ED: 0.84 | |ICA/CCA ED: 1.72 | |ICA/CCA PS: 0.50 | |ICA/CCA PS: 0.90 | |ECA AC: 44 deg | |ECA AC: 48 deg | |ECA ED: 10.79 cm/s | |ECA ED: 6.23 cm/s | |ECA PS: 56.46 cm/s | |ECA PS: 73.89 cm/s | |ICA AC: 45 deg | |ICA AC: 26 deg | |ICA AC: 14 deg | |ICA AC: 60 deg | |ICA AC: 57 deg | |ICA AC: 59 deg | |ICA ED: 18.58 cm/s | |ICA ED: 21.18 cm/s | |ICA ED: 17.02 cm/s | |ICA ED: 21.15 cm/s | |ICA ED: 12.06 cm/s | |ICA ED: 9.64 cm/s | |ICA PS: 53.90 cm/s | |ICA PS: 59.28 cm/s | |ICA PS: 48.93 cm/s | |ICA PS: 76.88 cm/s | |ICA PS: 34.20 cm/s | |ICA PS: 49.05 cm/s | |SUBC PS: 120.76 cm/s | |SUBC PS: 144.19 cm/s | |VERT AC: 45 deg | |VERT ED: 16.83 cm/s | |VERT ED: 4.05 cm/s | |VERT PS: 50.76 cm/s | |VERT PS: 12.81 cm/s | | | |Extrusion Manager: ARMIN | |Authenticated by: Nasir Lim MD, FACC, FACP, [facility] | |Report Date/Time: -- [id number] | | | |IMPRESSION: | |1. Minimal intimal thickening in right internal carotid artery S/P CEA. | |2. Minimal intimal thickening in left internal carotid artery S/P CEA. | + + documented in this encounter Visit Diagnoses Not on filedocumented in this encounter"
--- OUTSIDE RECORDS SUMMARY | ~2020-05-18 | XMS | Encounter Summary ---
Demographics + + + | Address | [address] | | | [place] [address] | + + + | Home Phone | | + + + | Preferred Language | Unknown | + + + | Marital Status | | + + + | Islam Affiliation | 1041 | + + + | Race | White | + + + | Ethnic Group | Not or | + + + Author + + + | Author | [facility] | | | and Danielana [...] [place], [place] | | | | | [address] | | + + + + + | Alicia Mccarthy | ECON | [address] | | | | | [place] [address] | | + + + + + Care Team Providers + +------+ + | Care Corrections Specialist Name | Role | Phone | + +------+ + | Matias Muñoz MD | PCP | | + +------+ + Reason for Visit +--------+--------+ + | Reason | Onset | Comments | | | Date | | +--------+--------+ + | Other | 10/17/ | Med question | | | 2013 | | +--------+--------+ + Encounter Details +--------+ + + + + | Date | Type | Department | Care Team | Description | +--------+ + + + + | 10/17/ | Telephone | [facility] | Lio Mendez, | Other (Med question) | | 2013 | | PULMONARY [address] | MD [address] | | | | | [place], | [place] | | | | | [place] [address] | [address] | | | | | [phone] | | | +--------+ + + + [...] this encounter Miscellaneous Notes Telephone Encounter - Michelle Walton RN - 10/17/2013 2:33 PM [address] Alicia that Dr Mendez said the injection he gets from Dr Muñoz will not interfere with the antibiotic w e have him on. She will let him know. Electronically signed by Michelle Walton RN at 09/27 2:36 PM PSTTelephone Encounter - Michelle Walton RN - 10/17/2013 2:[address] Muñoz's office, Lila will let Dr Muñoz know. elephone Encounter - Lio Mendez MD - 10/17/2013 1: 55 PM PSTA Kenalog injection will not interfere with azithromycin. elephone Encounter - Michelle Walton RN - 10/17/2013 10:42 AM PSTPatient calls to ask, on behalf of Dr Muñoz, if he can have a Kenalog injection for "aching". He usually gets Kenalog about every 6 months. He (Dr Muñoz) wants to make sure it will not interfere with the antibiotic (azithromycin) Dr Mendez has him on. He asks if we'd let Dr Muñoz know (I told the patient I'd let him know as well). Electronical ly signed by Michelle Walton RN at 10/17/2013 10:46 AM PSTdocumented in this encounter Plan of Treatment +--------+---------+ + + + | Date | Type | Specialty | Care Team | Description | +--------+---------+ + + + | 06/25/ | Office | Cardiology | Connie Alvarez | | | 2019 | Visit | | [address] | | | | | | [address] | | | | | | [place] [address] | | | | | | [phone] | | | | | | | | +--------+---------+ + + + documented as of this encounter Visit Diagnoses Not on filedocumented in this encounter
--- OUTSIDE RECORDS SUMMARY | ~2020-05-18 | XMS | Encounter Summary ---
Demographics + + + | Address | [address] | | | [place] [address] | + + + | Home Phone | | + + + | Preferred Language | Unknown | + + + | Marital Status | | + + + | Holiness Affiliation | [id number] | + + + | Race | White | + + + | Ethnic Group | Not or | + + + Author + + + | Author | [facility] | | | and [place] | + + + | Organization | [facility] | | | and [place] | + + + | Address | Unknown | + + + | Phone | Unavailable | + + + Support + + + + + | Name | Relationship | Address | Phone | + + + + + | Tera Mccarthy | ECON | [place], [place] | | | | | [address] | | + + + + + | Alicia Mccarthy | [place] | [address] | | | | | [place] [address] | | + + + + + Care Team Providers + +------+ + | Care Accounts Payable Supervisor Name | Role | Phone | + +------+ + | Matias Muñoz MD | PCP | | + +------+ + Encounter Details +--------+ + + + + | Date | Type | Department | Care Team | Description | +--------+ + + + + | 04/26/ | Orders Only | [facility] | Connie Alvarez | | | 2019 | | CONVERSION | [address] | | | | | [address] | [place] | | | | | [address] [facility] [place] | [place] [address] | | | | | [address] | [phone] | | | | | [phone] | | | +--------+ + + + [...] [place] | | | | | | [place] [address] | | | | | | [phone] | | | | | | | | +--------+---------+ + + + documented as of this encounter Procedures + +--------+ + + + | Procedure Name | Priori | Date/Time | Associated Diagnosis | Comments | | | ty | | | | + +--------+ + + + | [place] INTERPRETATION | Routin | 04/26/2019 | | Results for this | | OF OUTSIDE FILMS | e | 1:43 PM | | procedure are in the | | | | PDT | | results section. | + +--------+ + + + documented in this encounter Results [place] Interpretation of Outside Films (04/26/2019 1:43 PM PDT) + + | Specimen | + + | | + + + + + | Impressions | Performed At | + + + | 1. Overall left ventricular systolic function is normal with an EF | | | between 65 - 70%. 2. The right ventricle is normal in size and | | | function. 3. There is mild aortic regurgitation. 4. Tfvn-wx-ggogjlsd | | | mitral regurgitation is present. 5. The ascending aorta is mildly | | | dilated, measuring up to 3.9 cm. 6. In comparison to the previous | | | echocardiographic study, done 05/16/18, no clinically significant | | | changes are noted. | | + + + + + + | Narrative | Performed At | + + + | Patient Name: SIMON MCCARTHY Date of : 1940 | | | Performing Physician: Marky Reddy MD | | | | | | INDICATIONS CAD, HX CABG, OPHELIA, MODERATE MR | | | CONCLUSIONS 1. Overall left ventricular systolic | | | function is normal with an EF between 65 - 70%. 2. The right | | | ventricle is normal in size and function. 3. There is mild aortic | | | regurgitation. 4. Igok-hi-aglhwdjn mitral regurgitation is present. | | | 5. The ascending aorta is mildly dilated, measuring up to 3.9 cm. 6. | | | In comparison to the previous echocardiographic study, done 05/16/18, | | | no clinically significant changes are noted. FINDINGS -------- | | | ECG rhythm: Sinus rhythm. Study: A 2-dimensional transthoracic | | | echocardiogram with m-mode, spectral and color flow Doppler was | | | perfomed at [facility]. Study: This was a technically adequate study, | | | although there were Study: poor subcostal views. Left Ventricle: | | | Overall left ventricular systolic function is normal with an EF | | | between 65 - 70%. Left Ventricle: The left ventricle cavity size is | | | normal, and measures 4.6 cm at end diastole, compared to 3.7 cm, as | | | measured on the previous exam. Left Ventricle: No regional wall | | | motion abnormalities. D Left Ventricle: iastolic function is | | | indeterminate (there was grade 1 diastolic dysfunction noted on the | | | previous study). Left Ventricle: Mild asymmetric septal hypertrophy | | | with septal thickness 14 mm. This was also seen on the prior study. | | | Right Ventricle: The right ventricle is normal in size and function. | | | Left Atrium: The left atrium is normal in size. Right Atrium: The | | | right atrium is normal in size. Aortic Valve: The aortic valve is | | | trileaflet. Aortic Valve: Aortic valve leaflets are mildly thickened | | | and calcified. Aortic Valve: There is mild aortic regurgitation. | | | Aortic Valve: There is no evidence of aortic stenosis. Mitral Valve: | | | Normal appearing mitral valve. Mitral Valve: Ivpa-sm-udzrjinc mitral | | | regurgitation is present. Mitral Valve: No evidence of MVP. | | | Tricuspid Valve: The tricuspid valve appears structurally normal. | | | Tricuspid Valve: Mild tricuspid regurgitation is present. Tricuspid | | | Valve: The right ventricular systolic pressure (pulmonary artery | | | systolic pressure), as measured by Doppler, is 17 mmHg + CVP (which | | | could not be estimated, due to the inability to visualize the IVC). | | | Pulmonic Valve: Pulmonic valve appears structurally normal. Pulmonic | | | Valve: Trace pulmonic regurgitation. Pericardium: There is no | | | pericardial effusion. IVC/Hepatic Veins: The IVC was not well | | | visualized. Aorta: The ascending aorta is mildly dilated, measuring | | | up to 3.9 cm. This measurement is essentially unchanged from the | | | previous study. Mass: No mass visualized Thrombus: No clot | | | visualized Thrombus: No vegetation visualized. Septum: No ASD | | | observed. Septum: No VSD observed. MEASUREMENTS | | | Ao asc: 3.97 cm Ao sinus: 3.[address] junct: 3.16 cm | | | EDV(Teich): 95.56 ml IVSd: 1.43 cm LVIDd: 4.56 cm LVPWd: | | | 0.98 cm LVOT Area: 3.16 cm2 LVOT Diam: 2.00 cm %FS: | | | 26.98 % EF(Teich): 52.71 % ESV(Teich): 45.18 ml LVIDs: | | | 3.33 cm SV(Teich): 50.37 ml RV Major: 6.21 cm RV Minor: | | | 2.90 cm LVEF MOD A2C: 58.84 % SV MOD A2C: 56.95 ml LVEF MOD | | | A4C: 53.15 % SV MOD A4C: 56.69 ml EF Biplane: 56.05 % | | | LVEDV MOD BP: 101.96 ml LVESV MOD BP: 44.81 ml LVEDV MOD A2C: | | | 96.78 ml LVLd A2C: 8.61 cm LVEDV MOD A4C: 106.66 ml LVLd | | | A4C: 8.81 cm LVESV MOD A2C: 39.82 ml LVLs A2C: 6.90 cm | | | LVESV MOD A4C: 49.97 ml LVLs A4C: 7.63 cm LAESV(A-L): 54.51 | | | ml LAESV Index (A-L): 27.67 ml/m2 LAAs A2C: 17.74 cm2 LAESV | | | A-L A2C: 55.08 ml LALs A2C: 4.85 cm LAAs A4C: 17.31 cm2 | | | LAESV A-L A4C: 53.18 ml LALs A4C: 4.78 cm RAAs: 13.62 cm2 | | | RAESV A-L: 29.55 ml RAESV MOD: 26.73 ml RALs: 5.33 cm AV | | | maxP.14 mmHg AV meanP.58 mmHg AV Vmax: 1.33 m/s AV | | | Vmean: 0.87 m/s AV VTI: 27.23 cm HAY Vmax: 2.24 cm2 HAY | | | (VTI): 2.47 cm2 AVAI (Vmax): 0.00 cm2/m2 AVAI (VTI): 0.00 | | | cm2/m2 LVOT maxP.58 mmHg LVOT meanP.65 mmHg LVSI | | | Dopp: 34.25 ml/m2 LVSV Dopp: 67.47 ml LVOT Vmax: 0.94 m/s | | | LVOT Vmean: 0.58 m/s LVOT VTI: 21.31 cm MV A Carl: 1.05 m/s | | | MV Dec [place]: 3.52 m/s2 MV DecT: 284.36 ms MV E Carl: 1.00 | | | m/s MV E/A Ratio: 0.94 MV PHT: 82.46 ms MVA By PHT: 2.66 | | | cm2 Septal e': 0.03 m/s Septal E/e': 26.13 Lateral e': | | | 0.08 m/s Lateral E/e': 11.76 TR maxP.04 mmHg TR Vmax: | | | 2.06 m/s RV s': 0.06 m/s Home [employer] Service Supervisor: JEF Authenticated by: | | | Marky Reddy MD Report Date/Time: -- [id number] | | + + + + + | Procedure Note | + + | Frantz, Rad Conversion - 05/17/2019 1:54 PM PDT Patient Name: SIMON MCCARTHY | | of : 1940 Performing Physician: Marky Reddy, | | INDICATIONS C | | AD, HX CABG, OPHELIA, MODERATE MR CONCLUSIONS 1. Overall left ventricular systolic | | function is normal with an EF between 65 - 70%.2. The right ventricle is normal in size | | and function.3. There is mild aortic regurgitation.4. Fugn-ho-ymkethlo mitral | | regurgitation is present.5. The ascending aorta is mildly dilated, measuring up to 3.9 | | cm. 6. In comparison to the previous echocardiographic study, done 05/16/18, no | | clinically significant changes are noted. FINDINGS--------ECG rhythm: Sinus | | rhythm.Study: A 2-dimensional transthoracic echocardiogram with m-mode, spectral and | | color flow Doppler was perfomed at [facility].Study: This was a technically adequate study, | | although there wereStudy: poor subcostal views.Left Ventricle: Overall left ventricular | | systolic function is normal with an EF between 65 - 70%.Left Ventricle: The left | | ventricle cavity size is normal, and measures 4.6 cm at end diastole, compared to 3.7 | | cm, as measured on the previous exam.Left Ventricle: No regional wall motion | | abnormalities. DLeft Ventricle: iastolic function is indeterminate (there was grade 1 | | diastolic dysfunction noted on the previous study).Left Ventricle: Mild asymmetric | | septal hypertrophy with septal thickness 14 mm. This was also seen on the prior | | study.Right Ventricle: The right ventricle is normal in size and function.Left Atrium: | | The left atrium is normal in size.Right Atrium: The right atrium is normal in | | size.Aortic Valve: The aortic valve is trileaflet.Aortic Valve: Aortic valve leaflets | | are mildly thickened and calcified.Aortic Valve: There is mild aortic | | regurgitation.Aortic Valve: There is no evidence of aortic stenosis.Mitral Valve: Normal | | appearing mitral valve.Mitral Valve: Chlj-ve-wieekdnr mitral regurgitation is | | present.Mitral Valve: No evidence of MVP.Tricuspid Valve: The tricuspid valve appears | | structurally normal.Tricuspid Valve: Mild tricuspid regurgitation is present.Tricuspid | | Valve: The right ventricular systolic pressure (pulmonary artery systolic pressure), as | | measured by Doppler, is 17 mmHg + CVP (which could not be estimated, due to the | | inability to visualize the IVC).Pulmonic Valve: Pulmonic valve appears structurally | | normal.Pulmonic Valve: Trace pulmonic regurgitation.Pericardium: There is no | | pericardial effusion.IVC/Hepatic Veins: The IVC was not well visualized.Aorta: The | | ascending aorta is mildly dilated, measuring up to 3.9 cm. This measurement is | | essentially unchanged from the previous study.Mass: No mass visualizedThrombus: No clot | | visualizedThrombus: No vegetation visualized.Septum: No ASD observed.Septum: No VSD | | observed. MEASUREMENTS Ao asc: 3.97 cmAo sinus: 3.[address] junct: | | 3.16 cmEDV(Teich): 95.56 mlIVSd: 1.43 cmLVIDd: 4.56 cmLVPWd: 0.98 cmLVOT Area: | | 3.16 [id number] Diam: 2.00 cm%FS: 26.98 %EF(Teich): 52.71 %ESV(Teich): 45.18 | | mlLVIDs: 3.33 cmSV(Teich): 50.37 mlRV Major: 6.21 cmRV Minor: 2.90 cmLVEF MOD | | A2C: 58.84 %SV MOD A2C: 56.95 mlLVEF MOD A4C: 53.15 %SV MOD A4C: 56.69 mlEF | | Biplane: 56.05 %LVEDV MOD BP: 101.96 mlLVESV MOD BP: 44.81 mlLVEDV MOD A2C: | | 96.78 mlLVLd A2C: 8.61 cmLVEDV MOD A4C: 106.66 mlLVLd A4C: 8.81 cmLVESV MOD A2C: | | 39.82 mlLVLs A2C: 6.90 cmLVESV MOD A4C: 49.97 mlLVLs A4C: 7.63 cmLAESV(A-L): | | 54.51 mlLAESV Index (A-L): 27.67 ml/m2LAAs A2C: 17.74 [id number] A-L A2C: 55.08 | | mlLALs A2C: 4.85 cmLAAs A4C: 17.31 [id number] A-L A4C: 53.18 mlLALs A4C: 4.78 | | cmRAAs: 13.62 [id number] A-L: 29.55 mlRAESV MOD: 26.73 mlRALs: 5.33 cmAV maxPG: | | 7.14 mmHgAV meanP.58 mmHgAV Vmax: 1.33 m/Phillip Vmean: 0.87 m/Phillip VTI: 27.23 | | cmAVA Vmax: 2.24 cm2AVA (VTI): 2.47 nq1ZAWP (Vmax): 0.00 cm2/m2AVAI (VTI): 0.00 | | cm2/m2LVOT maxP.58 mmHgLVOT meanP.65 mmHgLVSI Dopp: 34.25 ml/m2LVSV Dopp: | | 67.47 mlLVOT Vmax: 0.94 m/sLVOT Vmean: 0.58 m/sLVOT VTI: 21.31 cmMV A Carl: | | 1.05 m/sMV Dec [place]: 3.52 m/s2MV DecT: 284.36 msMV E Carl: 1.00 m/sMV E/A Ratio: | | 0.94MV PHT: 82.46 msMVA By PHT: 2.66 vt2Gvgqyq e': 0.03 m/sSeptal E/e': | | 26.13Lateral e': 0.08 m/sLateral E/e': 11.76TR maxP.04 mmHgTR Vmax: 2.06 | | m/sRV s': 0.06 m/s [employer] Supervisor: DBSAuthenticated by: Hector Tavarez | | Date/Time: -- [id number] IMPRESSION: 1. Overall left ventricular systolic | | function is normal with an EF between 65 - 70%.2. The right ventricle is normal in size | | and function.3. There is mild aortic regurgitation.4. Xyxg-lm-pfxyegex mitral | | regurgitation is present.5. The ascending aorta is mildly dilated, measuring up to 3.9 | | cm. 6. In comparison to the previous echocardiographic study, done 05/16/18, no | | clinically significant changes are noted. | |Ao st junct: 3.16 cm | |EDV(Teich): 95.56 ml | |IVSd: 1.43 cm | |LVIDd: 4.56 cm | |LVPWd: 0.98 cm | |LVOT Area: 3.16 cm2 | |LVOT Diam: 2.00 cm | |%FS: 26.98 % | |EF(Teich): 52.71 % | |ESV(Teich): 45.18 ml | |LVIDs: 3.33 cm | |SV(Teich): 50.37 ml | |RV Major: 6.21 cm | |RV Minor: 2.90 cm | |LVEF MOD A2C: 58.84 % | |SV MOD A2C: 56.95 ml | |LVEF MOD A4C: 53.15 % | |SV MOD A4C: 56.69 ml | |EF Biplane: 56.05 % | |LVEDV MOD BP: 101.96 ml | |LVESV MOD BP: 44.81 ml | |LVEDV MOD A2C: 96.78 ml | |LVLd A2C: 8.61 cm | |LVEDV MOD A4C: 106.66 ml | |LVLd A4C: 8.81 cm | |LVESV MOD A2C: 39.82 ml | |LVLs A2C: 6.90 cm | |LVESV MOD A4C: 49.97 ml | |LVLs A4C: 7.63 cm | |LAESV(A-L): 54.51 ml | |LAESV Index (A-L): 27.67 ml/m2 | |LAAs A2C: 17.74 cm2 | |LAESV A-L A2C: 55.08 ml | |LALs A2C: 4.85 cm | |LAAs A4C: 17.31 cm2 | |LAESV A-L A4C: 53.18 ml | |LALs A4C: 4.78 cm | |RAAs: 13.62 cm2 | |RAESV A-L: 29.55 ml | |RAESV MOD: 26.73 ml | |RALs: 5.33 cm | |AV maxP.14 mmHg | |AV meanP.58 mmHg | |AV Vmax: 1.33 m/s | |AV Vmean: 0.87 m/s | |AV VTI: 27.23 cm | |HAY Vmax: 2.24 cm2 | |HAY (VTI): 2.47 cm2 | |AVAI (Vmax): 0.00 cm2/m2 | |AVAI (VTI): 0.00 cm2/m2 | |LVOT maxP.58 mmHg | |LVOT meanP.65 mmHg | |LVSI Dopp: 34.25 ml/m2 | |LVSV Dopp: 67.47 ml | |LVOT Vmax: 0.94 m/s | |LVOT Vmean: 0.58 m/s | |LVOT VTI: 21.31 cm | |MV A Carl: 1.05 m/s | |MV Dec [place]: 3.52 m/s2 | |MV DecT: 284.36 ms | |MV E Carl: 1.00 m/s | |MV E/A Ratio: 0.94 | |MV PHT: 82.46 ms | |MVA By PHT: 2.66 cm2 | |Septal e': 0.03 m/s | |Septal E/e': 26.13 | |Lateral e': 0.08 m/s | |Lateral E/e': 11.76 | |TR maxP.04 mmHg | |TR Vmax: 2.06 m/s | |RV s': 0.06 m/s | | | |Home Restoration Service Supervisor: DBS | |Authenticated by: Marky Reddy MD | |Report Date/Time: -- [id number]:47:8 | | | |IMPRESSION: | |1. Overall left ventricular systolic function is normal with an EF between 65 - 70%. | |2. The right ventricle is normal in size and function. | |3. There is mild aortic regurgitation. | |4. Gsim-tb-fmghnztq mitral regurgitation is present. | |5. The ascending aorta is mildly dilated, measuring up to 3.9 cm. 6. In comparison to the [facility] echocardiographic study, done 05/16/18, no clinically significant changes are noted. | + + documented in this encounter Visit Diagnoses Not on filedocumented in this encounter"
--- OUTSIDE RECORDS SUMMARY | ~2020-05-18 | XMS | Encounter Summary ---
Demographics + + + | Address | [address] | | | [place] [address] | + + + | Home Phone [...] + + + | Author | [facility] | | | and [place] | + + + | Organization | [facility] | | | and [place] | + + + | Address | Unknown | + + + | Phone | Unavailable | + + + Support + + + + + | Name | Relationship | Address | Phone | + + + + + | Tera Mccarthy | ECON | [place], [place] | | | | | [address] | | + + + + + | Alicia Mccarthy | ECON | [address] | | | | | [place] [address] | | + + + + + Care Team Providers + +------+ + | Care Retail Product Advisor Name | Role | Phone | + [...] | | | | | aortic | RU[employer]ER PR[address]ER [address] | | | | | | aneurysm | [address] | | | | | | (AAA) | [address] | | | | | | without | [place], [place] | | | | | | rupture | [address] | | | | | | (HCC) | Phone: | | | | | | Ascending | [phone] | | | | | | aorta | Fax: | | | | | | dilatation | [phone] | | | | | | (HCC) [...] | | | | CEA (carotid | RU[address]ER [address] | | | | | | | [address] | | | | | | endarterecto | [place] | | | | | | my) | [place] | | | | | | Bilateral | [address] | | | | | | carotid | Phone: | | | | | | artery | [phone] | | | | | | disease, | Fax: | | | | | | unspecified | [phone] | | | | | | type [...] | | | | | artery | RU[address] | | | | | | disease | [address] | | | | | | involving | [place] | | | | | | [place] | [place], [place] | | | | | | coronary | [address] | | | | | | artery of | Phone: | | | | | | [place] heart | [phone] | | | | | | without | Fax: | | | | | | angina | [phone] | | | | | | pectoris [...] | | | | | | | ([facility]) Mild | | | | [...] | | | | | | | ([facility]) | | | | | [...] + + | 05/14/ | Office | [facility] | Connie Alvarez | Coronary artery | | 2019 | Visit | CARDIOLOGY ELLEN | [address] | disease involving | | | | [address] | [address] | coronary bypass | | | | [address] | [place] [address] | graft of [place] | | | | [address] | [phone] | heart without angina | | | | [phone] | | pectoris (Primary | | | | | | Dx); Coronary artery | | | | | | disease involving | | | | | | [place] coronary | | | | | | artery of [place] | | | | | | heart [...] rupture | | | | | | ([facility]); History of | | | | | | CEA (carotid | | | | | | endarterectomy); | | | | | | Bilateral carotid | | | | | | artery disease, | | | | | | unspecified type | | | | | | ([facility]); Bilateral | | | | [...] | | | | | | tachycardia ([facility]); | | | | | [...] | | | | | | vera ([facility]); | | | | | | 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; | | | | | | Mild aortic stenosis | | | | | | by prior | | | | | | echocardiogram; | | | | | | Ascending aorta | | | | | | dilatation ([facility]); | | | | | [...] Non fasting labs to be done at [facility] for CTA of head and neck, , but can drink wate r prior to having labs done I also ordered you an Echo and CTA of head and neck, as well as Abdominal US to be done a t [place] I made no changes to medications See me back in 6 weeks in [place] documented in this encounter Progress Notes Connie Alvarez FNP - 05/14/2020 1:00 PM PDTFormatting of this note might be differe nt from the original. Date of visit: 05/14/2020 Primary Care Physician: Bob Banks MD CHIEF COMPLAINT: Chief Complaint Patient presents with Follow-up Dizziness HISTORY OF PRESENT ILLNESS: Mr. Simon Mccarthy, Evelio, is a 80-year-old man who is here today to follow up on increa sed dizziness. He is accompanied today by his son who contributed to history, and also drove him to his ap pointment He is a patient of chemical production technician Dr. 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 Yu had noted that he had followed up with Dr. 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 Unfortunately he suffered a Brain stem stroke in [facility] and was in rehab there for 4 months. Per her virtual visit documentation, he had reported that one of his eyes is still not tracking and his balance was off and he was planning on going back to [place] to see a neuro-rope rider and was using a walker and he [...] continue to monitor his blood pressure at [facility] and that he needed an echo in one year to evaluate his ascending aorta. He was supposed to be followed up in March. He called in May [address] Yu's medical instrument technician about severe dizziness, an d wanted a medication review, so I am seeing him in the clinic today. I tried to get him in on the , but he was in [facility] as there attending his grand daughter's wedding . His current and previous testing and procedures are detailed below. He was previously hospitalized from May 16 until May 19 [facility] with acute CVA and consulted by neurologist [...] also consulted. He was admitted 10/16/2019 to [facility] for acute Brainstem stroke, and admitted November [facility] rehab facility He was seen in the emergency room at [facility] on March 17 for increased blood pressu [...] also reports he did follow-up with a neuro-rope rider in [place], who is helping him to get established with a neurologist in [place] which will be easier for him to [...] 05/16/2019, 2nd Brainstem Stroke 10/16/2019 treated in [facility] o . 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 Sibley): Comprehensive EP study coronary [...] leg V CU [place] Last echo: 05/17/2019 ([facility]): EF 75%. LV normal [...] Mild TR. No pu lmonary hypertension. Mild AK. No pericardial effusion. IVC not well visualized. [...] revious CEA Ct Angiogram Head Neck Acute Stroke:05/16/2019:[facility] w/ stroke: 1. The [...] 3. No acute intracranial findings Brain MRI:05/17/2019: [facility] w/ stroke: Abnormal diffusion restriction is seen in the right centrum semiovale compatible with an area of acute infarction. CEA: 02/2010: Right and left carotid artery endarterectomy Last carotid ultrasound: 04/26/2019:( [facility]) Atheromatous changes in the carotid arteries [...] elevation to anterior leads. Rate 67 bpm, AK 226 ms, QRS 108 ms, QTC 388 ms EK: Normal sinus rhythm, incomplete bundle branch block, prior septal infarct . First-degree A-V block. Rate 80 bpm, AK 206 ms, QRS 106 ms, QTC 420 ms (personally revie wed by me in the office today and when compared to EKG done in 2013 AK interval has decrease d ) EK05/31/2018: Sinus rhythm with first-degree AV block, incomplete right bundle branch bloc k. Old septal infarct Rate 60 bpm, AK 230 ms, QRS 108 ms, QTC 390 ms him a tracing persona lly reviewed by me, similar morphology to July 2017 EKG, except for increased first-degr ee block EK05/16/2019: Sinus rhythm with first-degree AV block, incomplete right bundle branch blo ck, LVH, old septal infarct w/ low voltage QRS leads II aVF. Rate 61 bpm, AK 226 ms, QRS 11 0 ms, QTC 410 ms, tracing personally reviewed by me EK05/23/2019: Sinus rhythm with first-degree AV block, stable incomplete right bundle bra nch block, LVH, old septal infarct. Rate 70 bpm, AK 230 ms, QRS 140 ms, QTC 410 ms, tracing personally reviewed by me, and similar morphology to previous EKG performed in April 2019, in May 2018 EK05/30/2019:( [facility]) Sinus rhythm with first-degree block, incomplete right bundle branch block, old inferior infarct. Rate 76 bpm, AK 222 ms, QRS 106 ms, QTC 398 ms tracing person ally reviewed by me. EK06/01/2019: ( [facility]) SVT, incomplete right bundle branch block. Rate 124 bpm, QRS 108 ms , QTC 451 ms, tracing personally reviewed by me EK06/19/2019: ( metoprolol XL 50 mg) sinus rhythm with first-degree AV block and septal i nfarct, incomplete right bundle branch block. Rate 64 bpm, AK 224 ms, QRS 108 ms, QTC 402 m s, tracing personally reviewed by me EK07/31/2019: (metoprolol XL 50 mg /Digoxin 125 mcg) Sinus rhythm with first-degree AV bl ock, incomplete right bundle branch block, previous anterior MN, rate 69 bpm, AK 240 ms, QRS 102 ms, QTC 390 ms, tracing personally reviewed by me, and similar morphology to previous E KG performed on June 19, 2019 EK10/11/2019: Sinus rhythm with first-degree AV block, incomplete right bundle branch blo ck, old inferior infarct. Rate 75 bpm, AK 238 ms, QRS 100 ms, QTC 419 ms, tracing personall y reviewed by me EK05/14/2020: Sinus rhythm with first-degree AV block, incomplete right bundle branch blo ck small Q waves leads III. Rate 66 bpm, AK 228 ms, QRS 102 ms, QTC 419 [...] of his imaging will be performed at [facility] For his cardiac medications, I have continued aspirin 81 mg daily, Zetia 10 mg daily for hy perlipidemia with statin intolerance, losartan 50 mg nightly for hypertension, metoprolol XL 25 mg daily for heart rate control and hypertension, and Plavix 75 mg daily for peripheral vascular disease. I will follow-up with him on June 25 in [place], but can see him sooner if neede d 1. Coronary artery disease involving coronary bypass graft of [place] heart without angina p ectoris 2. Coronary artery disease involving [place] coronary artery of [place] heart without angina pectoris 3. Hx of [...] past surgical history. Problem list. Poly [facility] 05/14/2020 docume nted in this encounter Plan of Treatment +--------+---------+ + + + | Date | Type | Specialty | Care Team | Description | +--------+---------+ + + + | 06/25/ | Office | Cardiology | Connie Alvarez | | 2019 | Visit | | [address] | | | | | | [address] | | | | | | [place] [address] | | | | | | [phone] | | | | | | | [...] 05/14/2020, Expires: | | | | | [place] coronary | 05/14/2021 | | | | | artery of [place] | | | | | | heart [...] | | | | | graft of [place] | | | | | | heart without angina | | | | | | pectoris Coronary | | | | | | artery disease | | | | | | involving [place] | | | | | | coronary artery of | | | | | | [place] heart without | | | | | [...] artery disease involving coronary bypass graft of [place] heart without angina | | pectoris - Primary | + + | Coronary artery disease involving [place] coronary artery of [place] heart without | | angina pectoris | [...]
--- OUTSIDE RECORDS SUMMARY | ~2020-05-18 | XMS | Encounter Summary ---
Demographics + + + | Address | [address] | | | [place] [address] | + + + | Home Phone | | + + + | Preferred Language | Unknown | + + + | Marital Status | | + + + | Bahai Affiliation | 1041 | + + + | Race | White | + + + | Ethnic Group | Not or | + + + Author + + + | Author | [facility] | | | and [place] | + + + | Organization | [facility] | | | and [place] | + + + | Address | Unknown | + + + | Phone | Unavailable | + + + Support + + + + + | Name | Relationship | Address | Phone | + + + + + | Tera Mccarthy | ECON | [place], [place] | | | | | [address] | | + + + + + | Alicia Mccarthy | ECON | [address] | | | | | [place] [address] | | + + + + + Care Team Providers + +------+ + | Care District Branch Manager Name | Role | Phone | + +------+ + | Brittany Meehan MD | PCP | | + +------+ + Encounter Details +--------+ + + + + | Date | Type | Department | Care Team | Description | +--------+ + + + + | 08/09/ | Orders Only | [facility] | Connie Alvarez | Mixed hyperlipidemia | | 2019 | | CARDIOLOGY [place] | [address] | (Primary Dx); | | | | [address] [facility] | [address] | Statin intolerance | | | | [address] | [place] [address] | | | | | [address] | [phone] | | | | | [address] | | | | | | [phone] | | | +--------+ + + + [...] [address] | | | | | | [place] [address] | | | | | | [phone] | | | | | | | | +--------+---------+ + + + documented as of this encounter Visit Diagnoses + + | Diagnosis | + + | Mixed hyperlipidemia - Primary | + + | Statin intolerance Other drug allergy | + + documented in this encounter"
--- OUTSIDE RECORDS SUMMARY | ~2020-05-18 | XMS | Encounter Summary ---
Demographics + + + | Address | [address] | | | [place] [address] | + + + | Home Phone | | + + + | Preferred Language | Unknown | + + + | Marital Status | | + + + | Caodaism Affiliation | 1041 | + + + | Race | White | + + + | Ethnic Group | Not or | + + + Author + + + | Author | [facility] [...] [place], [place] | | | | | [address] | | + + + + + | Alicia Mccarthy | ECON | [address] | | | | | [place] [address] | | + + + + + Care Team Providers + +------+ + | Care Hoeing Row Boss Name | Role | Phone | + +------+ + PCP | Unavailable | + +------+ + Encounter Details +--------+ + + + + | Date | Type | Department | Care Team | Description | +--------+ + + + + | 02/27/ | Hospital | [facility] | Alexis Rai, | Carotid Art Occ w/o | | 2009 - | Encounter | MED[facility]ENTER | [address] [facility] INTENSIVE [facility]ARE UNIT | [address] | | | 02/28/ | | [address] | [place] [address] | | | 2009 | | [place], [place] | [phone] | | | | | [address] | | | | | | [phone] | | | +--------+ + + + [...] [address] | | | | | | [place] [address] | | | | | | [phone] | | | | | | | | +--------+---------+ + + + documented as of this encounter Procedures + +--------+ + + + | Procedure Name | Priori | Date/Time | Associated Diagnosis | Comments | | | ty | | | | + +--------+ + + + | XR CHEST 2 VIEWS | Routin | 02/24/2010 | | Results for this | | | e | 4:03 PM | | procedure are in the | | | | PDT | | results section. | + +--------+ + + + documented in this encounter Results XR Chest 2 Vws (02/24/2010 4:03 PM PDT) + + | Specimen | + + | | + + + + + | Narrative | Performed At | + + + | [facility] [address] Ph: | | | Patient Name: ROBBIE MCCARTHY Date of : | | | 1940 Medical Record: [id number] Account: [id number] | | | Exam Date/Time: 02/24/2010 13:29 Ordering | | | Physician: ALEXIS RAI Order Detail: [id number] Exam Description: | | | XR CHEST 2 VIEW | | | | | | 02/24/2010 1:29 PM HISTORY: Preoperative chest radiographs. | | | TECHNIQUE: PA and lateral chest films. COMPARISON: Chest | | | radiographs dated 22 July 2009. FINDINGS: Lungs are clear. | | | No pneumothorax or pleural effusion. Unchanged median sternotomy | | | wires. Mild degenerative of the thoracic spine. Normal cardiac | | | silhouette and pulmonary vasculature. Mild unchanged anterior | | | wedging involving a mid thoracic spine vertebral body with bony | | | osteopenia. IMPRESSION: 1. No acute cardio pulmonary disease. | | | 2. Unchanged evidence of median sternotomy. 3. Mild | | | degenerative changes the thoracic spine. Unchanged mild chronic | | | anterior wedge compression deformity involving a mid thoracic spine | | | vertebral body. Electronically signed by Miguel A Ocampo MD on | | | 02/24/2010 4:20 PM | | + + + + + | Procedure Note | + + | Frantz, Rad Conversion - 05/20/2019 4:20 PM PDT | | [facility] | | [facility] [address] | | | | | | Patient Name: ROBBIE MCCARTHY | | Date of : 1940 | | Medical Record: [id number] | | Account: [id number] | | | | | | Exam Date/Time: 02/24/2010 13:29 | | Ordering Physician: ALEXIS RAI | | Order Detail: [id number] | | Exam Description: XR CHEST 2 VIEW | | | | 02/24/2010 1:29 PM | | | | HISTORY: | | Preoperative chest radiographs. | | | | TECHNIQUE: | | PA and lateral chest films. | | | | COMPARISON: | | Chest radiographs dated 22 July 2009. | | | | FINDINGS: | | Lungs are clear. No pneumothorax or pleural effusion. Unchanged median | | sternotomy wires. Mild degenerative of the thoracic spine. Normal cardiac | | silhouette and pulmonary vasculature. Mild unchanged anterior wedging | | involving a mid thoracic spine vertebral body with bony osteopenia. | | | | IMPRESSION: | | 1. No acute cardio pulmonary disease. | | | | 2. Unchanged evidence of median sternotomy. | | | | 3. Mild degenerative changes the thoracic spine. Unchanged mild | | chronic anterior wedge compression deformity involving a mid thoracic spine | | vertebral body. | | | | | + + documented in this encounter Visit Diagnoses + + | Diagnosis | + + | Occlusion and stenosis of carotid artery without mention of cerebral infarction | + + documented in this encounter"
--- OUTSIDE RECORDS SUMMARY | ~2020-05-18 | XMS | Clinical Summary ---
Demographics + + + | Address | [address] | | | [place] [address] | + + + | Home Phone | | + + + | Preferred Language | Unknown | + + + | Marital Status | Single | + + + | Religion Affiliation | Unknown | + + + | Race | Unknown | + + + | Ethnic Group | Other Race | + + + Author + + + | Author | [facility] | + + + | Organization | [facility] | + + + | Address | Unknown | + + + | Phone | Unavailable | + + + Care Team Providers + +------+ + | Care Industrial Tractor Driver Name | Role | Phone | + +------+ + PCP | Unavailable | + +------+ + Source Comments [facility] is fully live on both [facility] Ambulatory and [facility] InPatient.Count Includes [facility] & [facility] Allergies Not on File Medications [...] + +--------+ | MEDICARE | MEDICA | [id number] | 02/25/20 | [phone] | [address] | Medica | | | RE A & | | 05-Pre | 1 | [address] | [address] | | | [address] | | sent | | [place] | | | | | | | | [address] | | + +--------+ +--------+ + +--------+ | MODA MEDICARE | MODA | [id number] | 09/15/ | [phone] | [address] | [address] | | SUPPLEMENT | MEDICA | | 2015-P | 4 | [address] | | | | RE | | resent | | [place], | | | | [place]PPLE | | | | [place] [address] | | | | MENT | | [...] Person | Self | [birth year] | [address] | | | al/Fam | | 1940 | [phone] | [place] [address] | | | lee | | | 8 (Home) | | + +--------+ +--------+ + +"
--- OUTSIDE RECORDS SUMMARY | ~2020-05-18 | XMS | Encounter Summary ---
Demographics + + + | Address | [address] | | | [place] [address] | + + + | Home Phone | | + + + | Preferred Language | Unknown | + + + | Marital Status | Single | + + + | Sabianist Affiliation | Unknown | + + + | Race | Unknown | + + + | Ethnic Group | Other Race | + + + Author + + + | Author | [facility] | + + + | Organization | [facility] | + + + | Address | Unknown | + + + | Phone | Unavailable | + + + Care Team Providers + +------+ + | Care Title Insurance Examiner Name | Role | Phone | + +------+ + PCP | Unavailable | + +------+ + Encounter Details +--------+ + + + + | Date | Type | Department | Care Team | Description | +--------+ + + + + | 05/23/ | Results | Registration [id number] | | | [address] | Only | [address] | [phone] | | | | | [address] Mailcode: [address] | | | | | | [place], [place] | | | | | | [address] | | | | | | [phone] | | | +--------+ + + + [...] as of this encounter Plan of Treatment Not on filedocumented as of this encounter Procedures + +--------+ + + + | Procedure Name | Priori | Date/Time | Associated Diagnosis | Comments | | | ty | | | | + +--------+ + + + | DERMATOPATHOLOGY(WET | Routin | 05/23/2009 | | Results for this | | [facility]) | e | | | procedure are in the | | | | | | results section. | + +--------+ + + + documented in this encounter Results DERMATOPATHOLOGY([place]) (05/23/2009) + + + + + + | Component | Value | Ref Range | Performed | Pathologist | | | | | At | Signature | + + + + + + | DERMATOPATH | SOURCE OF SPECIMEN:A | | | | | OLOGY(WET | FIRST TISSUE LEVEL IV | | | | | MNT) | [address] CLINICAL | | | | | | DESCRIPTION:Shave, rt. | | | | | | lateral mid back; 3.5 x | | | | | | 4 mm brown asymmetrical | | | | | | irregularpapule; R/O | | | | | | nevus vs melanoma. | | | | | | GROSS DESCRIPTION:Rt. | | | | | | lateral mid back. The | | | | | | specimen is received in | | | | | | formalin, labeled | | | | | | Rt.lateral mid back, | | | | | | with the patient's name | | | | | | and consists of a two | | | | | | xavier andbrown shave | | | | | | biopsies. The first | | | | | | measuring 0.5 x 0.4 cm, | | | | | | that is bisected.The | | | | | | second measuring 0.6 x | | | | | | 0.4 cm, that is inked | | | | | | and bisected. | | | | | | Allspecimens are | | | | | | entirely submitted in | | | | | | one cassette. | | | | | | MICROSCOPIC | | | | | | DESCRIPTION:There is | | | | | | epidermal hyperplasia | | | | | | with horn pseudocysts, | | | | | | interweaving of therete | | | | | | and nuclei of uniform | | | | | | size and shape. 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 | | | | | | [id number] My | | | | | | electronic signature | | | | | | indicates that I have | | | | | | personally reviewed | | | | | | alldiagnostic slides, | | | | | | the gross and/or | | | | | | microscopic portion of | | | | | | thisreport and | | | | | | formulated the final | | | | | | diagnosis. | | | | | | Rendering Diagnostician: | | | | | | Jorje Mckee | | | | | | Simoni | | | | | | marta Signed 05/29/2009 | | | | + + + + + + + + | Specimen | + + | Other | + + + + + + + | Performing | Address | City/State/Zipcode | Phone Number | | Organization | | | | + + + + + | [facility] | [address] | [place] [address] | | | PATHOLOGY | [address] | | | + + + + + documented in this encounter Visit Diagnoses Not on filedocumented in this encounter"
--- OUTSIDE RECORDS SUMMARY | ~2020-05-18 | XMS | Encounter Summary ---
Demographics + + + | Address | [address] | | | [place] [address] | + + + | Home Phone | | + + + | Preferred Language | Unknown | + + + | Marital Status | | + + + | Methodist Affiliation | 1041 | + + + | Race | White | + + + | Ethnic Group | Not or | + + + Author + + + | Author | [facility] | | | and [place] | + + + | Organization | [facility] | | | and [place] | + + + | Address | Unknown | + + + | Phone | Unavailable | + + + Support + + + + + | Name | Relationship | Address | Phone | + + + + + | Tera Mccarthy | ECON | [place], [place] | | | | | [address] | | + + + + + | Alicia Mccarthy | ECON | [address] | | | | | [place] [address] | | + + + + + Care Team Providers + +------+ + | Care Fabric Normalizer Name | Role | Phone | + +------+ + | Matias Muñoz MD | PCP | | + +------+ + Encounter Details +--------+ + + + + | Date | Type | Department | Care Team | Description | +--------+ + + + + | 07/20/ | Orders Only | [facility] | Nasir Lim, | | | 2016 | | CARDIOLOGY [place] | [address] | | | | | [place] [address] | [place] [address] | | | | | [place], [place] | [phone] | | | | | [address] | | | | | | [phone] | | | +--------+ + + + [...] [address] | | | | | | [place] [address] | | | | | | [phone] | | | | | | | [...] VERT PS: | | | 12.81 cm/s Syrup Mixer Helper: ARMIN Authenticated by: Nasir Lim MD, | | | FACC, FACP, FASNC Report Date/Time: -- [id number]:52:16 | | + + + + + | Procedure Note | + + | Alfred Landry Conversion - 05/17/2019 7:44 PM PDT Patient Name: ROBBIE MCCARTHY | | of : 1940 Performing Physician: Nasir Lim MD, [facility], | | FACP, | | FASNC INDICATIONS--------- [...] 50.76 cm/sVERT PS: 12.81 | | cm/s Syrup Mixer Helper: DHAuthenticated by: Nasir Lim MD, FACC, FACP, [place] | | Date/Time: -- [id number]:52:16 IMPRESSION: 1. Minimal intimal thickening in right [...] |VERT PS: 12.81 cm/s | | | |Syrup Mixer Helper: ARMIN | |Authenticated by: Nasir Lim MD, FACC, FACP, [facility] | |Report Date/Time: -- [id number]:52:16 | | | |IMPRESSION: | |1. Minimal intimal thickening in right internal carotid artery S/P CEA. | |2. Minimal intimal thickening in left internal carotid artery S/P CEA. | + + documented in this encounter Visit Diagnoses Not on filedocumented in this encounter"
--- OUTSIDE RECORDS SUMMARY | ~2020-05-18 | XMS | Encounter Summary ---
Demographics + + + | Address | [address] | | | [place] [address] | + + + | Home Phone | | + + + | Preferred Language | Unknown | + + + | Marital Status | | + + + | Anabaptism Affiliation | 1041 | + + + | Race | White | + + + | Ethnic Group | Not or | + + + Author + + + | Author | [facility] | | | and [place] | + + + | Organization | [facility] | | | and [place] | + + + | Address | Unknown | + + + | Phone | Unavailable | + + + Support + + + + + | Name | Relationship | Address | Phone | + + + + + | Tera Mccarthy | ECON | [place] | | | | | [address] | | + + + + + | Alicia Mccarthy | ECON | [address] | | | | | [place] [address] | | + + + + + Care Team Providers + +------+ + | Care Communication Center Coordinator Name | Role | Phone | [...] DR [place] | | | | | ([facility]) | | [place] | | | | | Procedures | | [address] Phone: | | | | | CV EP | | [phone] | | | | | ABLATION SVT | | Fax: | | | | | | | [phone] | +--------+--------+ + + + + Encounter Details +--------+ + + + + | Date | Type | Department | Care Team | Description | +--------+ + + + + | 10/11/ | Anesthesia | [facility] | Marcelo Camacho MD | | | 2019 | Event | [facility] | [address] | | | | | LAB [address] | [place] [address] | | | | | [place], [place] | [phone] | | | | | [address] | | | | | | [phone] | | | +--------+ + + + [...] Bhanu Lara RN | | IV | ljmf-nnc-tzpyou catheter system; | RN | | | [...] EVALUATION Simon Mccarthy 79 y.o. male 1940 [id number] Procedure(s) CV EP ABLATION SVT (N/A Heart) [...] by Doug Scott MD 10/11/2019 3:41 PM [facility] 3:4 2 PM PSTAnesthesia Preprocedure Evaluation - Marcelo Camacho MD - 10/11/2019 1:51 PM PSTFormatt ing of this note might be different from the original. ANESTHESIA PREANESTHESIA EVALUATION Simon Mccarthy 79 y.o. male 1940 [id number] Procedure(s): CV EP ABLATION SVT (N/A ) [...] NOTE Simon Mccarthy 79 y.o. male 1940 [id number] CV EP ABLATION SVT (N/A Heart) HANDOFF [...] team. Doug Scott MD 10/11/2019 3:40 PM [facility] 3:4 1 PM PSTdocumented in this encounter [...] [address] | | | | | | [place] [address] | | | | | | [phone] | | | | | | | [...] PM PST | | | | | Sanrda 10/11/19 at 1345, Pre-op | | | | | | + +---------+ +---+---+---+ +---+---+ | | | +---+---+ documented in this encounter"
--- OUTSIDE RECORDS SUMMARY | ~2020-05-18 | XMS | Encounter Summary ---
Demographics + + + | Address | [address] | | | [place] [address] | + + + | Home Phone | | + + + | Preferred Language | Unknown | + + + | Marital Status | | + + + | Spiritism Affiliation | 1041 | + + + | Race | White | + + + | Ethnic Group | Not or | + + + Author + + + | Author | [facility] | | | and [place] | + + + | Organization | [facility] | | | and [place] | + + + | Address | Unknown | + + + | Phone | Unavailable | + + + Support + + + + + | Name | Relationship | Address | Phone | + + + + + | Tera Mccarthy | ECON | [place], [place] | | | | | [address] | | + + + + + | Alicia Mccarthy | ECON | [address] | | | | | [place] [address] | | + + + + + Care Team Providers + +------+ + | Care Needle Punch Machine Operator Name | Role | Phone [...] [place] | hypertension | | | | [place], | [place], [place] | (Primary Dx); Cough | | | | [place] [address] | [address] | variant asthma; Hay | | | | [phone] | | fever; ASHD | | | [...] [place] | | | | | | [place] [address] | | | | | | [phone] | | | | | | | [...] of unspecified type of | | vessel, upper sioux or graft | + + | Ventricular [...]
--- OUTSIDE RECORDS SUMMARY | ~2020-05-18 | XMS | Encounter Summary ---
Demographics + + + | Address | [address] | | | [place] [address] | + + + | Home Phone | | + + + | Preferred Language | Unknown | + + + | Marital Status | | + + + | Muslim Affiliation | 1041 | + + + | Race | White | + + + | Ethnic Group | Not or | + + + Author + + + | Author | [facility] | | | and [place] | + + + | Organization | [facility] | | | and [place] | + + + | Address | Unknown | + + + | Phone | Unavailable | + + + Support + + + + + | Name | Relationship | Address | Phone | + + + + + | Tera Mccarthy | ECON | [place], [place] | | | | | [address] | | + + + + + | Alicia Mccarthy | ECON | [address] | | | | | [place] [address] | | + + + + + Care Team Providers + +------+ + | Care Requirements Manager Name | Role | Phone | + +------+ + | Brittany Meehan MD | PCP | | + +------+ + Reason for Visit + +--------+ + | Reason | Onset | Comments | | | Date | | + +--------+ + | Medication Related | 06/26/ | Losartan 50mg was making him dizzy, went back down to | | | 2018 | 25mg. | + +--------+ + Encounter Details +--------+ + + + + | Date | Type | Department | Care Team | Description | +--------+ + + + + | 06/26/ | Telephone | [facility] | Socorro Toney | Medication Related | | 2018 | | CARDIOLOGY [place]NA [place], Foundry Worker | (Losartan 50mg was | | | | [address] | | making him dizzy, | | | | [facility] | | went back down to | | | | [address] | | 25mg. ) | | | | [phone] | | | +--------+ + + + [...] encounter Miscellaneous Notes Telephone Encounter - Socorro Toney Foundry Worker - 06/26/2019 8:51 AM PDTCall m antonina to patient to advise of Dr. Yu's notes. Patient stated understanding and strongly agre ed to this plan. JDW:HOSPICE RN-AAMA. el ephone Encounter - Socorro Toney Foundry Worker - 06/26/2019 8:49 AM PDT----- Mess age from Shannan Yu DO sent at 06/25/2019 15:12 PDT ----- Regarding: RE: Patient questions about Losartan. Please have him decrease the dose back down to 25mg. Thanks. ----- Message ----- From: Socorro Toney Foundry Worker Sent: 06/25/2019 15:02 To: Shannan Yu DO Subject: Patient questions about Losartan. Patient came into the clinic today saying that he is feeling dizzy because his dose of Losa rtan was upped to 50mg from 25 mg per Connie Varela's instructions. They were wondering if he should stay on the 50mg and wait the dizziness out? Maybe his bod y is adjusting to the new dose? Or just go back to 25mg because he felt completely fine on the 25mg. Please advise. Thank you! [facility] Plan of Treatment +--------+---------+ + + + | Date | Type | Specialty | Care Team | Description | +--------+---------+ + + + | 06/25/ | Office | Cardiology | Kim Connie | | | 2019 | Visit | | MICHAEL Varela [address] | | | | | | [address] | | | | | | [place] [address] | | | | | | [phone] | | | | | | | | +--------+---------+ + + + documented as of this encounter Visit Diagnoses Not on filedocumented in this encounter"
--- OUTSIDE RECORDS SUMMARY | ~2020-05-18 | XMS | Encounter Summary ---
Demographics + + + | Address | [address] | | | [place] [address] | + + + | Home Phone [...] + | Author | [facility] | | [...] [place] | | | | | [address] | | + + + + + | Alicia Mccarthy | ECON | [address] | | | | | [place] [address] | | + + + + + Care Team Providers + +------+ + | Care Sales Agent Pest Control Service Name | Role | Phone | + [...] Closed | | Radiology | Diagnoses | Andrea, | [address] | | | | | Cough | MD Lio | [address] | | | | | Procedures | [address] | [place], | | | | | CT Chest wo | [place] | [place] [address] | | | | | Contrast | [place], | Phone: | | | | | | [place] [address] | [phone] | | | | | | Phone: | Fax: | | | | | | [phone] | [phone] | | | | | | Fax: | | | | | | | [phone] | | +--------+--------+ + + + + Encounter Details +--------+ + + + + | Date | Type | Department | Care Team | Description | +--------+ + + + + | 07/09/ | Orders Only | [facility] | Lio Mendez, | Cough (Primary Dx) | | 2012 | | PULMONARY [address] | MD [address] | | | | | [place], | [place], [place] | | | | | [place] [address] | [address] | | | | | [phone] | | | +--------+ + + + [...] [address] | | | | | | [place] [address] | | | | | | [phone] | | | | | | | | +--------+---------+ + + + documented as of this encounter Results CT Chest wo Contrast (07/13/2013 3:30 PM PDT) + + | Specimen | + + | | + + + + + | Narrative | Performed At | + + + | [facility] | [place] | | Department [address] [place] [address] | [facility] | | [ rep ct [address]] [ rep ct [facility] | | st zip] Signed | - IMAGING | | | | | Patient Name: SIMON MCCARTHY Physician: | | | ALBERTO : 1940 Age: 73 Sex: M Unit #: [id number] | | | Exam Date: 07/13/13 [place] [facility] | | | Report #: [id number] Page: | | | %(RAD)RES..mtdd.print.filter("pg") of %(RAD) | | | RES..mtdd.print.filter("tpg") | | | | | | Accession Number: [id number] | | | CT CHEST WITHOUT CONTRAST, [...] nodes are observed of the mediastinum or ussan. Some small benign | | | appearing [...] Transcribed Date/Time: | | | 07/13/2013 16:26 Forepart Laster: | | | <<Signature on File>> | | | Michael | | | MD Leoncio07/13/13 1636 <Electronically signed by Michael Fang MD> | | | Michael Fang MD 07/13/13 1530 Forepart Laster: Mozyx | | | Ifdgfyfgdrpas35/18/13 1626 Lio Mendez MD | | | | | + + + + + + + + | Performing | Address | City/State/Zipcode | Phone Number | | Organization | | | | + + + + + | [facility] | [address] | [place], [place] | [phone] | | [facility] | | [address] | | | - IMAGING | | | | + + + + + documented in this encounter Visit Diagnoses + + | Diagnosis | + + | Cough - Primary | + + documented in this encounter
--- OUTSIDE RECORDS SUMMARY | ~2020-05-18 | XMS | Encounter Summary ---
Demographics + + + | Address | [address] | | | [place] [address] | + + + | Home Phone | | + + + | Preferred Language | Unknown | + + + | Marital Status | | + + + | Christianity Affiliation | 1041 | + + + | Race | White | + + + | Ethnic Group | Not or | + + + Author + + + | Author | [facility] | | | and [place] | + + + | Organization | [facility] | | | and [place] | + + + | Address | Unknown | + + + | Phone | Unavailable | + + + Support + + + + + | Name | Relationship | Address | Phone | + + + + + | Tera Mccarthy | ECON | [place] | | | | | [address] | | + + + + + | Alicia Mccarthy | ECON | [address] | | | | | [place] [address] | | + + + + + Care Team Providers + +------+ + | Care Head Buyer Tobacco Name | Role | Phone | + [...] [place] | | | | | ([facility]) | [place], [place] | [place], [place] | | | | | | [address] | [address] Phone: | | | | | | Phone: | [phone] | | | | | | [phone] | Fax: | | | | | | Fax: | [phone] | | | | | | [phone] | | + + + + + + + Reason for Visit + + + | Reason | Comments | + + + | New Patient | NEW PATIENT | + + + Encounter Details +--------+---------+ + + + | Date | Type | Department | Care Team | Description | +--------+---------+ + + + | 08/15/ | Office | [facility] | Shannan Yu DO | SVT | | 2019 | Visit | CARDIOLOGY [place] | [address] | (supraventricular | | | | [address] | [address] | tachycardia) (HCC) | | | | [address] [place], [place] | [id number] | (Primary Dx); | | | | [address] | | Cerebrovascular | | | | [phone] | | accident (CVA), | | | [...] whether | | | | | | tuscarora or | | | | | | transplanted heart; | | | | | | PVD (peripheral | | | | | | vascular disease) | | | | | | ([facility]); Hypertension, | | | | | | [...] Yu DO - 08/15/2019 10:40 AM PST [facility] Cardiology Cardiology Follow Up Note Reason for [...] Abdominal aortic aneurysm (AAA) without rupture ([facility]) 06/20/2019 Arthralgia ASHD (arteriosclerotic heart disease) Atherosclerosis Benign essential hypertension Bronchiectasis ([facility]) Mild , lower lobes CAD (coronary artery disease) Coronary artery disease Glucose intolerance (impaired glucose tolerance) 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 Hyperlipidemia Hyperlipidemia Hypertension Myalgia s/p lovastatin + meningitis Nasal and sinus discharge Occlusion of carotid artery PAD (peripheral artery disease) ([facility]) Polycythemia vera ([facility]) 2016 Renal stone Sciatica Sinusitis Chronic Stroke ([facility]) Trigeminy Ventricular pre-excitation Past Surgical History: Procedure [...] file Gets together: Not on file Attends spiritism service: Not on file Active member of [...] leg V [facility] [place] Last echo: 05/17/2019 ([facility]): EF 75%. LV normal in size [...] MR. Mild TR. No pulmonary hypertension. Mild MN. No pericardial effusion. IVC not well visua lized. No mass, no clot VASCULAR PROCEDURES/ IMAGING Ct Angiogram Head Neck Acute Stroke:05/16/2019:[facility] w/ stroke: 1. The right vertebral [...] 3. No acute intracranial findings Brain MRI:05/17/2019: [facility] w/ stroke: Abnormal diffusion restriction is seen in the right centrum semiovale compatible with an area of acute infarction. CEA: 02/2010:Right and left carotid artery endarterectomy Last carotid ultrasound: 04/26/2019:( [facility]) Atheromatous changes in the carotid arteries [...] elevation to anterior leads. Rate 67 bpm, MN 226 ms, QRS 108 ms, QTC 388 ms EK: Normal sinus rhythm, incomplete bundle branch block, prior septal infarct . First-degree A-V block. Rate 80 bpm, MN 206 ms, QRS 106 ms, QTC 420 ms (personally rev iewed by me in the office today and when compared to EKG done in 2013 MN interval has decrea sed ) EK05/31/2018:Sinus rhythm with first-degree AV block, incomplete right bundle branch blo ck. Old septal infarct Rate 60 bpm, MN 230 ms, QRS 108 ms, QTC 390 ms him a tracing pers onally reviewed by me, similar morphology to July 2017 EKG, except for increased first-d egree block EK05/16/2019: Sinus rhythm with first-degree AV block, incomplete right bundle branch blo ck, LVH, old septal infarct w/ low voltage QRS leads II aVF. Rate 61 bpm, MN 226 ms, QRS 11 0 ms, QTC 410 ms, tracing personally reviewed by me EK05/23/2019: Sinus rhythm with first-degree AV block, stable incomplete right bundle bra nch block, LVH, old septal infarct. Rate 70 bpm, MN 230 ms, QRS 140 ms, QTC 410 ms, tracing personally reviewed by me, and similar morphology to previous EKG performed in April 2019, in May 2018 EK05/30/2019:( [facility]) Sinus rhythm with first-degree block, incomplete right bundle branch block, old inferior infarct. Rate 76 bpm, MN 222 ms, QRS 106 ms, QTC 398 ms tracing person ally reviewed by me. EK06/01/2019: ( [facility]) SVT, incomplete right bundle branch block. Rate 124 bpm, QRS 108 ms , QTC 451 ms, tracing personally reviewed by me EK06/19/2019: ( metoprolol XL 50 mg) sinus rhythm with first-degree AV block and septal i nfarct, incomplete right bundle branch block. Rate 64 bpm, MN 224 ms, QRS 108 ms, QTC 402 m s, tracing personally reviewed by me EK07/31/2019: (metoprolol XL 50 mg /Digoxin 125 mcg) Sinus rhythm with first-degree AV bl ock, incomplete right bundle branch block, previous anterior AL, rate 69 bpm, MN 240 ms, QRS 102 ms, QTC 390 [...] [place] | | | | | | [place] [address] | | | | | | [phone] | | | | | | | | +--------+---------+ + + + + + +--------+ + + | Name | Type | Priori | Associated Diagnoses | Order Schedule | | | | ty | | | + + +--------+ + + | Ambulatory referral | Outpatient | Routin | SVT | Ordered: 08/15/2019 | | to [facility] Cardiac | Referral | e | [...] or lesion | | type, unspecified whether tuscarora or transplanted heart | + + | PVD (peripheral vascular disease) (HCC) Peripheral vascular disease, unspecified | + + | Hypertension, unspecified type | + + documented in this encounter
--- OUTSIDE RECORDS SUMMARY | ~2020-05-18 | XMS | Encounter Summary ---
Demographics + + + | Address | [address] | | | [place] [address] | + + + | Home Phone [...] | Author | [facility] | | [...] [place], [place] | | | | | [address] | | + + + + + | Alicia Mccarthy | ECON | [address] | | | | | [place] [address] | | + + + + + Care Team Providers + +------+ + | Care Electrogalvanizing Machine Operator Name | Role | Phone | + +------+ + PCP | Unavailable | + +------+ + Encounter Details +--------+ + + + + | Date | Type | Department | Care Team | Description | +--------+ + + + + | 08/22/ | Emergency | [facility] | Jose Alejandro Karmen | Pain in Limb | | 2008 | | [facility] | MD [address] | | | | | EM[facility]Y CENTER | [place], | | | | | [address] | [place] [address] | | | | | [place], [place] | [phone] | | | | | [address] | | | | | | [phone] | | | +--------+ + + + [...] [place] | | | | | | [place] [address] | | | | | | [phone] | | | | | | | [...] Performed At | + + + | [id number] | | | Page 1 RADIOLOGY | | | ED W02 1/ | | | E[facility] | | [facility] NAME[place] [address] | | | | | | | | | DATE OF : 1940 ORDER NUMBER: | | | [id number] EXAM DATE/TIME: 08/22/2009 01:29 P ORDERING PHYSICIAN: [...] 04:04 P | | | P P [id number]/ | | | cc: FABIOLA MARTINEZ MD PHYSICIAN MARTHA PERAZA | | | MD REECE CRANDALL MD | | + + + + + | Procedure Note | + + | Alfred Landry Conversion - 05/21/2019 2:58 AM PDT | | [id number] Page 1 | | RADIOLOGY ED W02 1/ | | EMR | | [facility] NAME: [address] | | [place] [address] | | | | DATE OF : 1940 | | | | ORDER NUMBER: [id number] | | EXAM DATE/TIME: 08/22/2009 01:29 P [...] | P | | P | | [id number]/ | | cc: FABIOLA MARTINEZ MD | | PHYSICIAN ED | | KARMEN TORRES MD | | REECE ELIZONDO MD | + + documented in this encounter Visit Diagnoses + + | Diagnosis | + + | Pain in soft tissues of limb Pain in limb | + + documented in this encounter"
--- OUTSIDE RECORDS SUMMARY | ~2020-05-18 | XMS | Encounter Summary ---
Demographics + + + | Address | [address] | | | [place] [address] | + + + | Home Phone | | + + + | Preferred Language | Unknown | + + + | Marital Status | | + + + | Rastafarian Affiliation | 1041 | + + + | Race | White | + + + | Ethnic Group | Not or | + + + Author + + + | Author | [facility] | | | and [...] [place] | | | | | [address] | | + + + + + | Alicia Mccarthy | ECON | [address] | | | | | [place] [address] | | + + + + + Care Team Providers + +------+ + | Care Jai Alai Player Name | Role | Phone | + +------+ + | Brittany Meehan MD | PCP | | + +------+ + Reason for Visit + + + | Reason | Comments | + + + | Follow-up | 3 MONTH | + + + Encounter Details +--------+ + + + + | Date | Type | Department | Care Team | Description | +--------+ + + + + | 03/12/ | Virtual | [facility] | Shannan Yu DO | Tachyarrhythmia | | 2020 | Office | CARDIOLOGY [place] | [address] | (Primary Dx); | | | Visit | [address] | [place], [place] | Coronary artery | | | | [address] [place] | [id number] | disease involving | | | | [address] | | coronary bypass | | | | [phone] | | graft of [place] | | | | | | heart without angina | | | | | | pectoris; | | | | | | Peripheral arterial | | | | | | disease (HCC) | +--------+ + + + + [...] + + + | Blood Pressure | 161/87 | 03/12/2020 1:23 PM | | | | | PDT | | + + + + + | Pulse | 81 | 03/12/2020 1:23 PM | | | | | PDT [...] Weight | 76.7 kg (169 lb) | 03/12/2020 1:23 PM | | | | | PDT | | + + + + + | Height | 175.3 cm (5' 9") | 03/12/2020 1:23 PM | | | | | PDT | | + + + + + | Body Mass Index | 24.96 | 03/12/2020 1:23 PM | | | | | PDT [...] as of this encounter Progress Notes Shannan Yu, - 03/12/2020 1:40 PM PDT Clinical discussion length: 11-20 min ([id number]) Patient has not been seen in office within the past 7 days, and outcome of this call is not to recommend soonest available office visit. Participants: Patient Participant verbally confirmed the choice to initiate care by, and consents to receive care by Telephone. Participant is currently at home [facility] Cardiology Cardiology Follow Up Note Reason for Consultation: follow up History Obtained From: patient HISTORY OF PRESENT ILLNESS: Cardiac Problem List 1. Ischemic Stroke 2. SVT 3. Coronary artery disease s/p 6 vessel CABG 2008 4. PVD s/p CEA 2009 5. HTN 6. Hyperlipidemia 7. Left subclavian stenosis 50% 8. 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 COPD The [...] normal sinus rhythm. He reports that since I l ast saw him, he has had some episodes [...] like to try going off of it. I last saw the patient 4 weeks ago. At that time, I referred him to EP, Dr. Sibley for h istory of SVT. At that time, we also increased his dose of metoprolol up to 100 mg by mouth daily and discontinued the digoxin. He followed up with Dr. Sibley on 09/05/2019. At th at time, he felt that his dizziness was worsened after increasing his dose of metoprolol and it was decreased back down to 50 mg by mouth daily. After doing this, the patient feels t hat his dizziness has improved. There are plans for an EP study and ablation for his histor y of SVT. There are also upcoming plans for a kidney stone removal. He denies any recent e pisodes of chest pain. He has been staying active, helping his son on the ranch and denies any shortness of breath with exertion. We again discussed his LDL cholesterol given it was elevated on his most recent blood work. He thought that Zetia could be contributing to his dizziness. After discontinuing this medication, he did not notice any difference in his di zziness. He has had intolerances to several statins in the past with severe myalgias. We d iscussed restarting Zetia, repeating a lipid panel in 3 months and considering a PCSK9 inhib itor if his LDL cholesterol is still uncontrolled. Interim history I last saw the patient on 09/12/2019. At that time, we started ezetimibe 10 mg by mouth sudarshan hinesy. Since that time, he followed up with Dr. 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 This was done on 10/11/2019. Unfortunately, after this, he suffered a stroke in [facility]. He was in rehab for about 4 months there. He reports that one of his eyes still is n ot tracking appropriately and has affected his balance a lot. He plans on going back to [facility] to see a neuroophthalmologist. He denies any residual weakness. He has been getting kenzie und in a walker. He reports that he continues to have issues with dizziness. He is no long er working with physical therapy. His blood pressure today is noted to be elevated with sys tolics in the 160s. He reports that he has been checking his blood pressures at home and t ypically gets systolics into the 140s. His losartan was stopped due to the dizziness. He h as had recurrent issues with dizziness despite being normotensive. Given his recurrent stro kes, he needs strict blood pressure control and was reassured that I do not believe that his dizziness is related to blood pressure. 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 Hyperlipidemia Hypertension Myalgia s/p lovastatin + meningitis Nasal and sinus discharge PAD (peripheral artery disease) (HCC) Polycythemia vera (HCC) 2016 Renal stone on imaging Sciatica Sinusitis Chronic Stroke (HCC) Supraventricular tachycardia (HCC) runs of short RP SVT suggested on monitor 07/14 - dual AV oseas physiology noted but no in ducible SVT at baseline - s/p slow pathway RFA 10/15 - left AT noted with Isuprel and inducti on attempts Trigeminy Past Surgical History: Procedure Laterality Date ABLATION OF DYSRHYTHMIC FOCUS N/A 10/11/2019 Procedure: CV EP ABLATION SVT; Surgeon: Cornel Sibley MD; [place] [facility] [place] CARDIAC CATHERIZATION 06/2009 LM 60-70% distal, LAD [...] MR, tr TR, Ao 4.37, nl RVSP MEDICATIONS Home Medications Outpatient Encounter Medications as of 03/12/2020 Medication Sig Dispense Refill aspirin 81 mg [...] (ADVAIR, WIXELA INHUB) 250-50 mcg/puff diskus inhaler Takes as n eeded [DISCONTINUED] losartan (COZAAR) 50 mg tablet Take 1 tablet by mouth nightly. (Patient not taking: Reported on 03/12/2020) 90 tablet 3 metoprolol succinate (TOPROL-XL) 50 mg 24 hr tablet Take 1 tablet by mouth Daily. 90 ta blet 3 [DISCONTINUED] raNITIdine (ZANTAC) 150 mg tablet Take 150 mg by mouth Daily. No facility-administered encounter medications on file as of 03/12/2020. Allergies Allergies Allergen Reactions Penicillins Rash Statins [...] resource strain: Not on file Food insecurity Worry: Not on file Inability: Not on file Transportation needs Medical: Not on file Non-medical: Not on file Tobacco Use Smoking status: Never Smoker Smokeless tobacco: Former User Types: Chew Substance and Sexual Activity Alcohol use: Not Currently Comment: Alcoholic Drinks/day: occasionally Drug use: No Comment: Drug use: No Sexual activity: Not on file Lifestyle Physical activity Days per week: Not on file Minutes per session: Not on file Stress: Not on file Relationships Social connections Talks on phone: Not on file Gets together: Not on file Attends jew service: Not on file Active member of club or organization: Not on file Attends meetings of clubs or organizations: Not on file Relationship status: Not on file Intimate partner violence Fear of current or ex partner: Not on file Emotionally abused: Not on file Physically abused: Not on file Forced sexual activity: Not on file Other Topics Concern Not on file Social History Narrative Not on file PHYSICAL EXAM Vital Signs: BP 161/87 | Pulse 81 | Ht 1.753 m (5' 9") | Wt 76.7 kg (169 lb) | BMI 24.9 6 kg/m Physical Exam from prior visit GENERAL: Well developed, well nourished, in no [...] DATA Lab Results Component Value Date WBC 5.74 10/11/2019 HGB 15.1 10/11/2019 HCT 45.0 10/11/2019 PLT 209 10/11/2019 Lab Results Component Value Date INR 1.1 08/11/2019 PTT 28 08/11/2019 Lab Results Component Value Date NA 141 10/11/2019 K 4.2 10/11/2019 CL 106 10/11/2019 CO2 28 10/11/2019 BUN 15 10/11/2019 CREA 1.21 10/11/2019 MG 1.9 08/11/2019 AST 9 (L) 08/12/2019 [...] Dr. Carlin Right leg V [facility] 10/22/2019 normal left ventricular cavity size, moderate to severe septal left ventricular h ypertrophy with mild global hypertrophy. The left ventricular ejection fraction is 70%, no regional wall motion abnormalities. Last echo: 05/17/2019 ([facility]): EF 75%. LV normal in size [...] MR. Mild TR. No pulmonary hypertension. Mild DC. No pericardial effusion. IVC not well visua lized. No mass, no clot VASCULAR PROCEDURES/ IMAGING Ct Angiogram Head Neck Acute Stroke:05/16/2019:[facility] w/ stroke: 1. The right vertebral [...] 3. No acute intracranial findings Brain MRI:05/17/2019: [facility] w/ stroke: Abnormal diffusion restriction is seen in the right centrum semiovale compatible with an area of acute infarction. CEA: 02/2010:Right and left carotid artery endarterectomy Last carotid ultrasound: 04/26/2019:( [facility]) Atheromatous changes in the carotid arteries maik [...] elevation to anterior leads. Rate 67 bpm, DC 226 ms, QRS 108 ms, QTC 388 ms EK: Normal sinus rhythm, incomplete bundle branch block, prior septal infarct . First-degree A-V block. Rate 80 bpm, DC 206 ms, QRS 106 ms, QTC 420 ms (personally rev iewed by me in the office today and when compared to EKG done in 2013 DC interval has decrea sed ) EK05/31/2018:Sinus rhythm with first-degree AV block, incomplete right bundle branch blo ck. Old septal infarct Rate 60 bpm, DC 230 ms, QRS 108 ms, QTC 390 ms him a tracing pers onally reviewed by me, similar morphology to July 2017 EKG, except for increased first-d egree block EK05/16/2019: Sinus rhythm with first-degree AV block, incomplete right bundle branch blo ck, LVH, old septal infarct w/ low voltage QRS leads II aVF. Rate 61 bpm, DC 226 ms, QRS 11 0 ms, QTC 410 ms, tracing personally reviewed by me EK05/23/2019: Sinus rhythm with first-degree AV block, stable incomplete right bundle bra nch block, LVH, old septal infarct. Rate 70 bpm, DC 230 ms, QRS 140 ms, QTC 410 ms, tracing personally reviewed by me, and similar morphology to previous EKG performed in April 2019, in May 2018 EK05/30/2019:( [facility]) Sinus rhythm with first-degree block, incomplete right bundle branch block, old inferior infarct. Rate 76 bpm, DC 222 ms, QRS 106 ms, QTC 398 ms tracing person ally reviewed by me. EK06/01/2019: ( [facility]) SVT, incomplete right bundle branch block. Rate 124 bpm, QRS 108 ms , QTC 451 ms, tracing personally reviewed by me EK06/19/2019: ( metoprolol XL 50 mg) sinus rhythm with first-degree AV block and septal i nfarct, incomplete right bundle branch block. Rate 64 bpm, DC 224 ms, QRS 108 ms, QTC 402 m s, tracing personally reviewed by me EK07/31/2019: (metoprolol XL 50 mg /Digoxin 125 mcg) Sinus rhythm with first-degree AV bl ock, incomplete right bundle branch block, previous anterior WV, rate 69 bpm, DC 240 ms, QRS 102 ms, QTC 390 ms, tracing personally reviewed by me, and similar morphology to previous E KG [facility] June 19[facility] Normal sinus rhythm average heart rate [...] 1.2 ASSESSMENT & PLAN 1. Ischemic Stroke recurrent 2. SVT- followed by EP 3. Dizziness 4. Coronary artery disease s/p 6 vessel CABG 2008 5. PVD s/p CEA 2009; severe stenosis of right vertebral artery 6. HTN 7. Hyperlipidemia 8. COPD 9. Dilated ascending Aorta -The patient is an 80-year-old male who presents for phone consultation to follow-up from h er recent hospitalization. He suffered a recent CVA. He reports myalgias in the past with statin therapy. He is presently on Zetia 10 mg by mouth daily. If his LDL cholesterol is n ot controlled, will consider a PCSK9 inhibitor. He has persistent issues with dizziness whi ch was is related to his medications. These have been persistent and ongoing. He was advis ed not to stop any of his cardiac or blood pressure medications without calling. - Continue Zetia 10mg po daily - Continue metoprolol succinate 50mg po daily - Continue Plavix 75 mg by mouth daily and aspirin 81mg po daily - Follow up with EP as scheduled. - Follow up with neurology as scheduled. - He is to continue to monitor his BP at home - Will plan to follow up ascending Ao with echo in one year. - Follow up in 4 weeks Thank you for allowing me to participate in the care of this patient. Primary Care Physician: MD Shannan Knowles DO 03/16/2020 documented in this enco unter Plan of Treatment +--------+---------+ + + + | Date | Type | Specialty | Care Team | Description | +--------+---------+ + + + | 06/25/ | Office | Cardiology | Connie Alvarez | | | 2019 | Visit | | [address] | | | | | | [address] | | | | | | [place] [address] | | | | | | [phone] | | | | | | | | +--------+---------+ + + + documented as of this encounter Visit Diagnoses + + | Diagnosis | + + | Tachyarrhythmia - Primary Tachycardia, unspecified | + + | Coronary artery disease involving coronary bypass graft of [place] heart without angina | | pectoris | + + | Peripheral arterial disease (HCC) Unspecified disorders of arteries and arterioles | + + documented in this encounter
--- OUTSIDE RECORDS SUMMARY | ~2020-05-18 | XMS | Encounter Summary ---
Demographics + + + | Address | [address] | | | [place] [address] | + + + | Home Phone [...] Author | [facility] | | | and Danielana | [...] [place], [place] | | | | | [address] | | + + + + + | Alicia Mccarthy | ECON | [address] | | | | | [place] [address] | | + + + + + Care Team Providers + +------+ + | Care Circuit Manager Name | Role | Phone | + +------+ + | Brittany Meehan MD | PCP | | + +------+ + Encounter Details +--------+ + + + + | Date | Type | Department | Care Team | Description | +--------+ + + + + | 05/30/ | Orders Only | [facility] | Jacob Sarkar | Cerebrovascular | | 2019 | | CARDIOLOGY [place] | [address] | accident (CVA), | | | | [address] | [address] | unspecified | | | | [place], [place] | [place] [address] | mechanism (HCC) | | | | [address] | [phone] | (Primary Dx) | | | | [phone] | | | +--------+ + + + [...] [address] | | | | | | [place] [address] | | | | | | [phone] | | | | | | | | +--------+---------+ + + + + +------+--------+ + + | Name | Type | Priori | Associated Diagnoses | Order Schedule | | | | ty | | | + +------+--------+ + + | Event monitor - 4 | ECG | Routin | Cerebrovascular | 1 Occurrences | | week | | e | accident (CVA), | starting 05/30/2019 | | | | | unspecified | until 05/30/2020 | | | | | mechanism (HCC) | | + +------+--------+ + + documented as of this encounter Visit Diagnoses + + | Diagnosis | + + | Cerebrovascular accident (CVA), unspecified mechanism (HCC) - Primary | + + documented in this encounter"
--- OUTSIDE RECORDS SUMMARY | ~2020-05-18 | XMS | Encounter Summary ---
Demographics + + + | Address | [address] | | | [place] [address] | + + + | Home Phone | | + + + | Preferred Language | Unknown | + + + | Marital Status | | + + + | Latter Day Affiliation | 1041 | + + + | Race | White | + + + | Ethnic Group | Not or | + + + Author + + + | Author | [facility] | | | and [place] | + + + | Organization | [facility] | | | and [place] | + + + | Address | Unknown | + + + | Phone | Unavailable | + + + Support + + + + + | Name | Relationship | Address | Phone | + + + + + | Tera Mccarthy | ECON | [place] | | | | | [address] | | + + + + + | Alicia Mccarthy | ECON | [address] | | | | | [place] [address] | | + + + + + Care Team Providers + +------+ + | Care Land Commissioner Name | Role | Phone | + +------+ + | Brittany Meehan MD | PCP | | + +------+ + Reason for Visit +--------+ + | Reason | Comments | +--------+ + | Other | 2 week monitor | +--------+ + Encounter Details +--------+ + + + + | Date | Type | Department | Care Team | Description | +--------+ + + + + | 07/10/ | Clinical | [facility] | Connie Alvarez | SVT | | 2019 | Support | CARDIOLOGY [place] | [address] | (supraventricular | | | | [address] | tachycardia) ([facility]); | | | | [address] [place], [place] | [place] [address] | Tachyarrhythmia | | | | [address] | [phone] | | | | | [phone] | | | +--------+ + + + [...] documented as of this encounter Progress Notes Kamla Key CMA - 07/10/2019 3:45 PM PDT2 week cardiac event monitor placed on patie nt. EOB/Billing information discussed. Instructions given and understood.Electronically sign ed by Kamla Key CMA at 07/10/2019 2:01 PM PDTdocumented in this encounter Plan of Treatment +--------+---------+ + + + | Date | Type | Specialty | Care Team | Description | +--------+---------+ + + + | 06/25/ | Office | Cardiology | Connie Alvarez | | | 2019 | Visit | | [address] | | | | | | [address] | | | | | | [place] [address] | | | | | | [phone] | | | | | | | | +--------+---------+ + + + documented as of this encounter Visit Diagnoses + + | Diagnosis | + + | SVT (supraventricular tachycardia) (HCC) Other specified cardiac dysrhythmias | + + | Tachyarrhythmia Tachycardia, unspecified | + + documented in this encounter"
--- OUTSIDE RECORDS SUMMARY | ~2020-05-18 | XMS | Encounter Summary ---
Demographics + + + | Address | [address] | | | [place] [address] | + + + | Home Phone | | + + + | Preferred Language | Unknown | + + + | Marital Status | | + + + | Mandaeism Affiliation | 1041 | + + + | Race | White | + + + | Ethnic Group | Not or | + + + Author + + + | Author | [facility] | | | and [place] | + + + | Organization | [facility] | | | and [place] | + + + | Address | Unknown | + + + | Phone | Unavailable | + + + Support + + + + + | Name | Relationship | Address | Phone | + + + + + | Tera Mccarthy | ECON | [place], [place] | | | | | [address] | | + + + + + | Alicia Mccarthy | ECON | [address] | | | | | [place] [address] | | + + + + + Care Team Providers + +------+ + | Care Subcontract Manager Name | Role | Phone | + +------+ + | Matias Muñoz MD | PCP | | + +------+ + Encounter Details +--------+ + + + + | Date | Type | Department | Care Team | Description | +--------+ + + + + | 06/25/ | Orders Only | [facility] | Nasir Lim, | | | 2014 | | CARDIOLOGY [place] | [address] | | | | | [place] [address] | [place] [address] | | | | | [place], [place] | [phone] | | | | | [address] | | | | | | [phone] | | | +--------+ + + + [...] [address] | | | | | | [place] [address] | | | | | | [phone] | | | | | | | [...] VERT PS: 19.89 cm/s | | | Quarter Doper: Authenticated by: Nasir Lim MD, FACC, FACP, | | | FASNC Report Date/Time: -- [id number] | | + + + + + | Procedure Note | + + | Frantz, Rad Conversion - 05/17/2019 9:34 PM PDT Patient Name: ROBBIE MCCARTHY | | of : 1940 Performing Physician: Nasir Lim MD, [facility], | | FACP, | | FASNC INDICATIONS--------- [...] cm/sVERT PS: 46.88 cm/sVERT PS: 19.89 cm/s Quarter Doper: | | DHAuthenticated by: Nasir Lim MD, FACC, FACP, FASNCReport Date/Time: -- | | [id number] IMPRESSION: 1. Minimal intimal thickening in right [...] |VERT PS: 19.89 cm/s | | | |Quarter Doper: | |Authenticated by: Nasir Lim MD, FACC, FACP, [facility] | |Report Date/Time: -- [id number] | | | |IMPRESSION: | |1. Minimal intimal thickening in right internal carotid artery. S/P CEA. | |2. Minimal intimal thickening in left internal carotid artery. S/P CEA. | + + documented in this encounter Visit Diagnoses Not on filedocumented in this encounter"
--- OUTSIDE RECORDS SUMMARY | ~2020-05-18 | XMS | Clinical Summary ---
Demographics + + + | Address | [address] | | | [place] [address] | + + + | Home Phone | | + + + | Preferred Language | Unknown | + + + | Marital Status | | + + + | Quaker Affiliation | 1041 | + + + | Race | White | + + + | Ethnic Group | Not or | + + + Author + + + | Author | [facility] | | | and [place] | + + + | Organization | [facility] | | | and [place] | + + + | Address | Unknown | + + + | Phone | Unavailable | + + + Support + + + + + | Name | Relationship | Address | Phone | + + + + + | Tera Mccarthy | ECON | [place], [place] | | | | | [address] | | + + + + + | Alicia Mccarthy | ECON | [address] | | | | | [place] [address] | | + + + + + Care Team Providers + +------+ + | Care Retail Assistant Manager Name | Role | Phone | + +------+ + | Bob Banks MD | PCP | | + +------+ + Allergies + + + + + + | Active Allergy | Reactions | Severity | Noted | Comments | | | | | Date | | + + + + + + | Penicillins | Rash | Medium | 03/16/20 | | | | | | 13 | | + + + + + + | Pravastatin | Other (See Comments) | | 02/01/20 | | | | | | 19 | | + + + + + + | Statins | Other (See Comments) | Medium | 06/24/20 | Cramping in the | | | | | 14 | legs, muscle | | | | | | weakness | + + + + + + Medications + + + +---------+------+------+-------+ | Medication | Sig | Dispensed | Refills | Star | End | Statu | | | | | | t | Date | s | | | | | | Date | | | + + + +---------+------+------+-------+ | | as needed Takes as | | 0 | 03/0 | | Activ | | fluticasone-salmeter | needed. | | | 20 | | e | | ol (ADVAIR, WIApoloniaELA | | | | 19 | | | | INHUB) 250-50 | | | | | | | | mcg/puff diskus | | | | | | | | inhaler | | | | | | | + + + +---------+------+------+-------+ | clopidogrel | Take 1 tablet by | 90 | 3 | 05/28 | | Activ | | (PLAVIX) 75 mg | mouth Daily. | tablet | | 20 | | e | | tablet | | | | 19 | | | + + + +---------+------+------+-------+ | fluticasone | 1 spray by Nasal | | 0 | | | Activ | | (FLONASE) 50 | route Daily. As | | | | | e | | mcg/nasal spray | needed | | | | | | + + + +---------+------+------+-------+ | ezetimibe (ZETIA) | Take 1 tablet by | 30 | 11 | 08/26 | 08/26 | Activ | | 10 mg tablet | mouth Daily. | tablet | | 05/15 | 04/14 | e | | | | | | 19 | 20 | | + + + +---------+------+------+-------+ | aspirin 81 mg EC | Take 81 mg by mouth | | 0 | | | Activ | | tablet | Daily. | | | | | e | + + + +---------+------+------+-------+ | losartan (COZAAR) | Take 50 mg by mouth | | 0 | | | Activ | | 50 mg tablet | Daily. | | | | | e | + + + +---------+------+------+-------+ | metoprolol | Take 25 mg by mouth | | 0 | | | Activ | | succinate | Daily. | | | | | e | | (TOPROL-XL) 25 mg 24 | | | | | | | | hr tablet | | | | | | | + + + +---------+------+------+-------+ | metoprolol | Take 1 tablet by | 90 | 3 | 08/26 | 04/26 | Disco | | succinate | mouth Daily. | tablet | | 10/15 | 01/13 | ntinu | | (TOPROL-XL) 50 mg 24 | | | | 19 | 20 | ed | | hr | | | | | | (Ther | | tabletIndications: | | | | | | apy | | Supraventricular | | | | | | compl | | tachycardia (HCC) | | | | | | eted) | + + + +---------+------+------+-------+ Active Problems + + + | Problem | Noted Date | + + + | S/P RF ablation operation for arrhythmia | 05/14/2020 | + + + + + | Overview: 10/11/2019 ([facility]/Dr. 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 | + + + + + | Obstruction of right vertebral artery | 05/14/2020 | + + + | Mild aortic stenosis by prior echocardiogram | 05/14/2020 | + + + | Supraventricular tachycardia | 09/05/2019 | + + + + + | Overview: Added automatically from request for surgery | | [id number] | + + + + + | Statin intolerance | 08/09/2019 | + + + | Bilateral carotid artery disease | 07/31/2019 | + + + | Abdominal aortic aneurysm (AAA) without rupture | 06/20/2019 | + + + | Encounter for monitoring digoxin therapy | 06/19/2019 | + + + | Coronary artery disease involving coronary bypass graft | 05/31/2019 | + + + | History of CVA in adulthood | 05/31/2019 | + + + | Dyslipidemia | 05/31/2019 | + + + | History of CVA (cerebrovascular accident) | 05/29/2019 | + + + | Hypertension goal BP (blood pressure) < 140/80 | 05/23/2019 | + + + | Facial droop | 05/16/2019 | + + + | Bilateral carotid bruits | 01/31/2019 | + + + | History of CEA (carotid endarterectomy) | 01/31/2019 | + + + | Moderate mitral regurgitation by prior echocardiogram | 01/31/2019 | + + + | Asymmetric septal hypertrophy | 01/31/2019 | + + + | Hx of CABG | 05/30/2018 | + + + | Murmur, cardiac | 05/30/2018 | + + + | Peripheral arterial disease | 05/30/2018 | + + + | Polycythemia vera | 05/30/2018 | + + + | Risk factors for obstructive sleep apnea | 05/30/2018 | + + + | Chronic cough | 04/03/2013 | + + + | Cough variant asthma | 03/16/2013 | + + + | Hay fever | 03/16/2013 | + + + | Coronary artery disease involving sokaogon coronary artery of | 03/16/2013 | | sokaogon heart | | + + + | Nasal and sinus discharge | 03/16/2013 | + + + | Sciatica | 03/16/2013 | + + + | Mixed hyperlipidemia | 03/16/2013 | + + + | Myalgia | 03/16/2013 | + + + | Glucose intolerance (impaired glucose tolerance) | 03/16/2013 | + + + | BPH without urinary obstruction | 03/16/2013 | + + + | Bronchiectasis | | + + + + + | Overview: Mild , lower lobes | + + Resolved Problems + + + + | Problem | Noted | Resolved | | | Date | Date | + + + + | Dizziness | 07/31/20 | | | | 19 | 9 | + + + + | Tachyarrhythmia | 05/31/20 | | | | 19 | 0 | + + + + | SVT (supraventricular tachycardia) | 05/31/20 | | | | 19 | 9 | + + + + | Elevated troponin | 05/29/20 | | | | 19 | 9 | + + + + | Acute CVA (cerebrovascular accident) | 05/17/20 | | | | 19 | 9 | + + + + + + | Overview: Right MCA stroke 05/16/2019: left sided facial | | weakness , and slurred speech , seen by neurology: Dr. Busch | + + + + + + | Benign essential hypertension | 03/16/20 | | | | 13 | 9 | + + + + | Ventricular pre-excitation | 03/16/20 | | | | 13 | 9 | + + + + | Trigeminy | 03/16/20 | | | | 13 | 0 | + + + + | Atherosclerosis | 03/16/20 | 05/23/ | | | 13 | 9 | + + + + Encounters +--------+ + + + + | Date | Type | Specialty | Care Team | Description | +--------+ + + + + | 05/14/ | Office | Cardiology | Connie Alvarez | Coronary artery | | 2020 | Visit | | [facility] | disease involving | | | | | | coronary bypass | | | | | | graft of sokaogon | | | | | | heart without angina | | | | | | pectoris (Primary | | | | | | Dx); Coronary artery | | | | | | disease involving | | | | | | sokaogon coronary | | | | | | artery of sokaogon | | | | | | heart [...] rupture | | | | | | ([facility]); History of | | | | | | CEA (carotid | | | | | | endarterectomy); | | | | | | Bilateral carotid | | | | | | artery disease, | | | | | | unspecified type | | | | | | ([facility]); Bilateral | | | | [...] | | | | | | tachycardia ([facility]); | | | | | [...] | | | | | | vera ([facility]); | | | | | | 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; | | | | | | Mild aortic stenosis | | | | | | by prior | | | | | | echocardiogram; | | | | | | Ascending aorta | | | | | | dilatation ([facility]); | | | | | | Hypertension, | | | | | | unspecified type | +--------+ + + + + | 05/09/ | Telephone | Cardiology | Socorro Toney | Other (Pt wanted to | | 2020 | | | D, Skein Drier | discuss medications | | | | | | ) | +--------+ + + + + | 03/12/ | Virtual | Cardiology | Shannan Yu DO | Tachyarrhythmia | | 2020 | Office | | | (Primary Dx); | | | Visit | | | Coronary artery | | | | | | disease involving | | | | | | coronary bypass | | | | | | graft of sokaogon | | | | | | heart without angina | | | | | | pectoris; | | | | | | Peripheral arterial | | | | | | disease (HCC) | +--------+ + + + + from Last 3 Months Immunizations + + + + | Name | Administration Dates | Next Due | + + + + | INFLUENZA PF 18 Y [place] | 06/26/2012 | | | >,TRIVALENT | | | | RECOMBINANT | | | + + + + Family History + + +------+ + | Medical History | Relation | Name | Comments | + + +------+ + | Kidney disease | Brother | | | + + +------+ + | * | Brother | | AAA | + + +------+ + | * | Mother | | DJD | + + +------+ + | Coronary artery | Mother | | | | disease | | | | + + +------+ + | High cholesterol | Mother | | | + + +------+ + | Hypertension | Mother | | | + + +------+ + + +------+ + + | Relation | Name | Status | Comments | + +------+ + + | Brother | | | | + +------+ + + | Brother | | Alive | | + +------+ + + | Father | | | suicide | | | | (Age | | | | | 68) | | + +------+ + + | Mother | | Alive | stent | + +------+ + + Social History + +-------+ +--------+------+ [...] + + + Last Filed Vital Signs + + + [...] | | + + + + + Plan of Treatment +--------+---------+ + + + | Date | Type | Specialty | Care Team | Description | +--------+---------+ + + + | 06/25/ | Office | Cardiology | Kim Connie | | | 2020 | Visit | | [facility] [address] | | | | | | [address] | | | | | | [place] [address] | | | | | | [phone] | | | | | | | | +--------+---------+ + + + + + + + + | Health Maintenance | Due Date | Last | Comments | | | | Done | | + + + + + | Vaccine: | | | | | Dtap/Tdap/Td (1 - | 9 | | | | Tdap) | | | | + + + + + | Vaccine: Zoster (1 | | | | | of 2) | 0 | | | + + + + + | Vaccine: | | | | | Pneumococcal 65+ (1 | 5 | | | | of 1 - PPSV23) | | | | + + + + + | Adult Annual | | | | | Wellness Visit | 9 | | | + + + + + | Vaccine: Influenza | | 06/26/20 | | | (#1) | 0 | 12 | | + + + + + | Med Mgmt: Cr | | 10/11/19 | | | | 1 | 20, | | | | | 08/12/20 | | | | | 19, | | | | | 08/11/20 | | | | | 19, | | | | | Addition | | | | | al | | | | | history | | | | | exists | | + + + + + | Med Mgmt: K | | 10/11/19 | | | | 1 | 20, | | | | | 08/12/20 | | | | | 19, | | | | | 08/11/20 | | | | | 19, | | | | | Addition | | | | | al | | | | | history | | | | | exists | | + + + + + | Medication | | 10/11/19 | | | Management | 1 | 20 | | + + + + + Procedures + +--------+ + + + | [...] | | | | | graft of sokaogon | | | | | | heart without angina | | | | | | pectoris Coronary | | | | | | artery disease | | | | | | involving sokaogon | | | | | | coronary artery of | | | | | | sokaogon heart without | | | | | [...] | | + +--------+ + + + from Last 3 Months Results ECG 12 lead (05/14/2020 1:12 PM [...] | | | + +---------+ + + from Last 3 Months Insurance + +--------+ +--------+ [...] + +--------+ | MEDICARE | MEDICA | [id number] | 02/25/20 | [phone] | | Medica | | | RE | | 05-Pre | 5 | | re | | | PART A | | sent | | | | | | AND B | | | | | | + +--------+ +--------+ + +--------+ | MODA | MODA | [id number] | 11/25/19 | [phone] | [address] | Indemn | | | HEALTH | | 08-Pre | 9 | [phone] | ity | | | MDCR | | sent | | [place], | | | | [place] | | | | [place] [address] | | + +--------+ +--------+ + +--------+ | MEDICARE | MEDICA | [id number] | 02/25/20 | [phone] | | Medica | | | RE | | 05-Pre | 5 | | re | | | PART A | | sent | | | | | | AND B | | | | | | + +--------+ +--------+ + +--------+ | MODA | MODA | [id number] | 09/26/19 | [phone] | [address] | Indemn | | | HEALTH | | 19-Pre | 9 | [phone] | ity | | | MDCR | | sent | | [place], | | | | [place] | | | | [place] [address] | | + +--------+ +--------+ + +--------+ + +--------+ +--------+ + + | Guarantor Name | Accoun | Relation to | Date | Phone | Billing Address | | | t Type | Patient | of | | | | | | | | | | + +--------+ +--------+ + + | Simon Mccarthy | Person | Self | [birth year] | [address] | | | al/Fam | | 1940 | [phone] | [place] [address] | | | lee | | | 8 (Home) | | + +--------+ +--------+ + + | Simon Mccarthy | Person | Self [birth year] | [address] | | | al/Fam | | 1940 | [phone] | [place] [address] | | | lee | | | 8 (Home) | | + +--------+ +--------+ + + Advance Directives + + + + + | Type | Date Recorded | Patient | Explanation | | | | [employer] | | + + + + + | Power of | | | | | Boring Machine Feeder | | | | + + + + + | Power of | 01/22/2020 5:22 | | | | Boring Machine Feeder | PM | | | + + + + + | Advance | 05/29/2019 3:16 | | | | Directive | PM | | | + + + + + + + + + + | Code Status | Date | Date | Comments | | | Activated | Inactivated | | + + + + + | Full Code | 08/11/2019 | 08/12/2019 | | | | 11:52 AM | 10:14 PM | | + + + + + + + + +---+ | | | | | + + + +---+ | Full Code | 05/31/2019 | 06/01/2019 | | | | 2:25 AM | 8:12 PM | | + + + +---+ + + + +---+ | | | | | + + + +---+ | Full Code | 05/16/2019 | 05/19/2019 | | | | 6:36 PM | 2:19 PM | | + + + +---+
--- OUTSIDE RECORDS SUMMARY | ~2020-05-18 | XMS | Encounter Summary ---
Demographics + + + | Address | [address] | | | [place] [address] | + + + | Home Phone | | + + + | Preferred Language | Unknown | + + + | Marital Status | | + + + | [employer] Affiliation | [id number] | + + + | Race | White | + + + | Ethnic Group | Not or | + + + Author + + + | Author | [facility] | | | and [place] | + + + | Organization | [facility] | | | and [place] | + + + | Address | Unknown | + + + | Phone | Unavailable | + + + Support + + + + + | Name | Relationship | Address | Phone | + + + + + | Tera Mccarthy | ECON | [place] | | | | | [address] | | + + + + + | Alicia Mccarthy | ECON | [address] | | | | | [place] [address] | | + + + + + Care Team Providers + +------+ + | Care Pruner Name | Role | Phone | + +------+ + | Brittany Meehan MD | PCP | | + +------+ + Reason for Visit + + + | Reason | Comments | + + + | Dizziness | | + + + | Hypertension | | + + + Encounter Details +--------+ + + + + | Date | Type | Department | Care Team | Description | +--------+ + + + + | 08/11/ | Emergency | [facility] | Nicky Means, | Ataxia (Primary Dx); | | 2019 - | | [facility] | DO [address] | Sinus bradycardia; | | | | CARE FLOOR [address] | [place] [address] | Generalized | | 08/12/ | | [address] | [phone] | weakness; Ambulatory | | 2019 | | [place], [place] | | dysfunction; | | | | [address] | Rhoda Schultz, | Dizziness; | | | | [phone] | MD [address] | Dyslipidemia; | | | | | [place] [address] | History of CVA in | | | | | [phone] | adulthood | | | | | | | | | | | Viktor Hand, | | | | | | MD [address] | | | | | | [place] [address] | | | | | | [phone] | | | | | | | [...] + + + | Blood Pressure | 114/64 | 08/12/2019 3:14 PM | | | | | PST | | + + + + + | Pulse | 68 | 08/12/2019 3:14 PM | | | | | PST | | + + + + + | Temperature | 36.9 C (98.5 F) | 08/12/2019 3:14 PM | | | | | PST | | + + + + + | Respiratory Rate | 16 | 08/12/2019 3:14 PM | | | | | PST | | + + + + + | Oxygen Saturation | 94% | 08/12/2019 3:14 PM | | | | | PST | | + + + + + | Inhaled Oxygen | - | - | | | Concentration | | | | + + + + + | Weight | 77.3 kg (170 lb 6.7 | 08/11/2019 11:52 AM | | | | oz) | PST | | + + + + + | Height | 175.3 cm (5' 9.02") | 08/11/2019 11:52 AM | | | | | PST | | + + + + + | Body Mass Index | 25.15 | 08/11/2019 11:52 AM | | | | | PST [...] documented as of this encounter Discharge Summaries Viktor Hand MD - 08/12/2019 3:58 PM PSTFormatting of this note might be different f rom the original. [facility] Service: Hospitalist Physician Discharge Summary Patient ID: Simon Mccarthy 1940 79 y.o. Admit date: 08/11/2019 Discharge date: 08/12/2019 Admitting Physician: Rhoda Schultz MD Discharge Physician: Viktor Hand MD Consultants: Primary Discharge Diagnoses: Principal Problem (Resolved): Dizziness Active Problems: Dyslipidemia Cough variant asthma Statin intolerance Resolved Problems: SVT (supraventricular tachycardia) HPI and Hospital Course: " Chief Complaint: Dizziness History of Present Illness: The patient is a 79 y.o. male with significant past medical history of CAD status post CABG in 2008, bilateral carotid endarterectomy 2012, hypertension, hyperlipidemia, PAD, polycyt hemia vera, AAA, history of stroke with left-sided facial weakness and mild dysarthria in [place] 2018 on Plavix, intolerant of statins, on Zetia sees Dr. Ryan of neurology, who was ad mitted to [facility] from May 30-2018 with a diagnosis of SVT for which he was started on metoprolol XL 50 mg 1 tablet a day and WINSOME which resolved with hydration, who now presents to the emergency department with complaint of dizziness/lightheadedness and elevated blood pressure, and feeling off balance when he walked. He reports chronic dizziness since his st roke in April. 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 He noted no changes as far as his left facial weakness or his mild dysarthria. No weakness of his arms or legs in particular but felt that he had trinh e generalized weakness. He denies fever or chills. He does have a chronic cough with white sputum but this is unchanged. He denies headache, nausea, vomiting, abdominal pain, diarrh ea, constipation, shortness of breath, chest pain. He reports mild blurriness of vision whe n he felt dizzy. He did not fall.He reports taking another dose of his losartan as his SBP was 169, but he did not feel any better so his son brought him to the ED. In the emergency department vital signs showed heart rate of 57, blood pressure 149/77, afe brile respiratory rate of 16 saturating 94 to 97% on 1 L/min. Labs showed normal CBC, chlor mariam of 111, GFR 60, troponin negative, digoxin level 0.6, BNP 122. .Initial EKG was reviewed with tick eradicator , reviewed that this NOT STEMI. CT of the head without contrast w as done which showed no acute intracranial findings, evolving infarct in the right centrum s familia-ovale originally documented in April. MRI brain without contrast showed no acute infar ct, concern for low flow within the left vertebral artery, unchanged loss of the T1 and T2 s ignal flow voids within the intradural right vertebral artery compared to previous MRI Augus 2018. CTA of head and neck showed the left vertebral artery is widely patent and the finding on MRI was artifact. Severe stenosis of the origin of the right vertebral artery. The right foot cervical vertebral artery is small along its entire course. Occlusion within the proximal right vertebral artery unchanged compared to MRI in May 16, 2019. He failed his road test and hospitalist was called to observe patient. He was sleeping when I saw him, and was feeling better when he woke up, no dizziness. Active comorbid conditions include: - CAD - hypertension - PVD - CVA".........per admission HP by Dr. Antoine MELENDEZ Hospital course: Mr. Mccarthy underwent extensive work-up based in the ER of his presenting complaint. No acu te diagnoses was identified to explain his dizziness. Please see H&P by Dr. Mclean for pres entation detail and extensive work-up completed already. Patient did well well with judicio us IV fluids provided. He had resolution of previously reported dizziness. He was able to ambulate short distances without symptoms. I discussed with Mr. Woodward, possibility of redu cing his beta-dixie dose to 50% of previous dose, as it was noted that he had few episodes of bradycardia but not below 50 bpm (on telemetry monitoring). Patient in my opinion has heightened level of anxiety, about his state of health. He previ ously identified Zetia as possible agent causing his dizziness. I also urged him to follow- up with his usual tick eradicator for reevaluation and perhaps Holter monitor study on the outp atient basis to further/precisely manage his beta-dixie therapy. Telemetry analysis showed sinus rhythm without SVT/aberrancy (few rare episodes of sinus br adycardia); patient does have chronic first AV block and incomplete right bundle branch bloc k, on EKG. Overall patient, had no episodes of unilateral weakness or dysarthria, visual loss, etc. His neurologic examination was nonfocal aside from minimal residual left facial weakness fr om prior stroke noticeable by more shallow nasolabial fold on the left when patient smiles. 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 Hyperlipidemia Hyperlipidemia Hypertension Myalgia s/p lovastatin + meningitis Nasal and sinus discharge Occlusion of carotid artery PAD (peripheral artery disease) ([facility]) Polycythemia vera ([facility]) 2016 Renal stone Sciatica Sinusitis Chronic Stroke ([facility]) Trigeminy Ventricular pre-excitation Past Surgical History: Procedure Laterality Date COLONOSCOPY CORONARY ARTERY BYPASS GRAFT 2008 6 vessel/ RLE veing harvest CORONARY ARTERY BYPASS GRAFT EYE SURGERY L and R CEA 2010 NASAL SEPTUM SURGERY OTHER SURGICAL HISTORY CATARACT EXTRACTION TONSILLECTOMY AND ADENOIDECTOMY Discharged Condition: Stable for discharge as stated above. Significant Diagnostic Studies: Recent Results (from the past 360 hour(s)) XR Chest AP Portable Narrative CHEST PORTABLE ONE VIEW CLINICAL INFORMATION: Dizziness and hypertension. COMPARISON: XR CHEST AP PORTABLE (05/30/2019); XR CHEST AP PORTABLE (05/28/2019); CHEST W/O CONTRAST (07/13/2013); CT ANGIOGRAM HEAD NECK ACUTE STROKE (05/16/2019); FINDINGS: Cardiomediastinal contours are within normal limits. Postsurgical changes of prior open heart surgery. Lungs are clear. No large effusion. No visible pneumothorax. No acute bony abnormalities. Surgical clips overlie both sides of the neck. Impression No acute cardiopulmonary process. Signed by: Lakshmi May Robin Sign Date/Time: 08/11/2019 2:[address] Head wo Contrast Narrative CT HEAD WITHOUT CONTRAST CLINICAL INFORMATION: Headache and dizziness. COMPARISON: MRI BRAIN WO CONTRAST (05/16/2019); CT ANGIOGRAM HEAD NECK ACUTE STROKE (05/16/2019); SINUS LIMITED WO CONTRAST (07/13/2013); PROCEDURE: Axial images were obtained through the head without IV contrast. Multiplanar reformations were obtained from the acquisition data. At least one of the following CT dose optimization techniques were used: Automated exposure control; Adjustment of mA and/or kV according to patient size; Use of iterative reconstruction technique. FINDINGS: Brain: No intracranial hemorrhage, midline shift or pathologic mass effect. No cerebral edema, mass lesion, or evidence of acute infarct. 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 Ventricles and extra-axial fluid spaces: Normal. Paranasal sinuses and mastoid air cells: Normal. Calvarium and extracranial soft tissues: Normal. Orbits: Imaged portions of the orbits are normal. Impression 1. No acute intracranial findings. No evidence of mass effect, acute hemorrhage or definite acute cortical infarct. 2. 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 Signed by: Lakshmi May Robin Sign Date/Time: 08/11/2019 2:46 AM MRI Brain wo Contrast Narrative MRI BRAIN WITHOUT CONTRAST CLINICAL INFORMATION: Ataxia and dizziness. COMPARISON: MRI brain [id number]. CT head 08/11/2019 PROCEDURE: Sagittal T1, axial FLAIR, axial T2, axial T1, axial gradient susceptibility, coronal T2, axial DWI. FINDINGS: Brain: Encephalomalacia within the right melissa radiata consistent with a old infarct. No evidence of acute infarct. No intracranial hemorrhage. No intracranial mass or mass effect. Scattered periventricular and subcortical foci of T2 signal alteration are nonspecific finding but commonly associated with chronic microvascular ischemic changes. Ventricles and extra-axial fluid spaces: Ventricles are normal in size and configuration. No extra-axial fluid collection. Sella, suprasellar cistern, and orbits: Normal. Major vascular flow voids: There is loss of the T2 flow void within the intradural left vertebral artery and proximal intradural right vertebral artery. The loss of flow void within the intradural right vertebral artery appears to be unchanged compared to the previous MRI on 05/16/2019. Calvarium and extracranial soft tissues: Normal. Paranasal sinuses and mastoid air cells: Mild mucosal thickening within the maxillary sinuses and ethmoid air cells. Mastoid air cells are clear. Impression 1. No evidence for acute infarct. No evidence for intracranial hemorrhage. 2. New loss of T2 signal flow void within the intradural left vertebral artery which could represent slow flow from stenosis or occlusion. 3. Unchanged loss of the T1 and T2 signal flow voids within the intradural right vertebral artery compared to the previous MRI. Signed by: Jay Jay Pandey Jace Sign Date/Time: 08/11/2019 6:[address] Angiogram Head Neck w Contrast Narrative CT ANGIOGRAM OF THE HEAD WITHOUT AND WITH CONTRAST; CT ANGIOGRAM OF THE NECK WITH CONTRAST CLINICAL INFORMATION: Ataxia. COMPARISON: MRI brain 08/11/2019. PROCEDURE: CT Head: Axial images were obtained [...] were obtained from the acquisition data. Contrast: 100 ml Omnipaque 350 IV. At least one of the following CT dose optimization techniques were used: Automated exposure control; Adjustment of mA and/or kV according to patient size; Use of iterative reconstruction technique. FINDINGS: CT Head: Brain: Focus of hypoattenuation within the right melissa radiata consistent with previous infarct. No intracranial hemorrhage. No intracranial mass or mass effect. No evidence for infarct. Periventricular and subcortical foci of decreased white matter attenuation are nonspecific finding but likely related to chronic microvascular ischemic disease. Ventricles and extra-axial fluid spaces: Normal. Paranasal sinuses and mastoid air cells: Normal. Calvarium and extracranial soft tissues: Normal. Orbits: Imaged portions of the orbits are normal. CTA Head: Intracranial Segments of the Internal Carotid Arteries: Scattered calcified atheromatous changes involving the bilateral cavernous ICA result in mild stenosis of the bilateral distal cavernous ICAs. Middle Cerebral Arteries: Normal contrast enhancement without evidence of occlusion, intraluminal thrombus, significant stenosis, or aneurysm. Anterior Cerebral Arteries: Normal contrast enhancement without evidence of occlusion, intraluminal thrombus, significant stenosis, or aneurysm. Posterior Circulation: There is occlusion of the right intradural vertebral artery which was likely present on the previous MRI on 05/16/2019. The left vertebral artery is normal in caliber. The loss of T2 flow void on the previous MRI most likely represents a slow flow. The basilar artery is normal in caliber. The inferior and superior cerebellar arteries are normal in caliber. The bilateral process owner are normal in caliber. CTA Neck: Aortic Arch: Conventional anatomy. Brachiocephalic artery demonstrate normal contrast enhancement without evidence of occlusion, intraluminal thrombus, or significant stenosis. Fibrofatty atheromatous changes at the origin of the right subclavian artery without significant stenosis. Fibrofatty atheromatous changes involving the proximal left subclavian artery results in mild stenosis. Right Carotid Artery: Carotid origin, common carotid artery, carotid bifurcation, external carotid artery, and cervical segments of the internal carotid artery demonstrate normal contrast enhancement without evidence of occlusion, intraluminal thrombus, dissection, or significant stenosis. 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 Fibrofatty atheromatous changes within the left common carotid artery result in approximately 40% stenosis. Vertebral Arteries: Atheromatous changes at the origin the right vertebral artery result in severe stenosis. The left vertebral artery is dominant and the right vertebral artery is small along its entire course. No stenosis of the left vertebral artery. Other: Visualized lung apices are clear. No cervical adenopathy. Impression 1. No intracranial hemorrhage or CT evidence of acute infarct. 2. 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 The right cervical vertebral artery is small along its entire course. There is occlusion within the proximal intradural right vertebral artery which is unchanged compared to the previous MRI on 05/16/2019. 3. The left vertebral artery is widely patent. The loss of T2 flow void on the previous MRI most likely represents artifact from slow flow or volume averaging. 4. 9 mm focal outpouching at the left proximal ICA most likely represents a pseudoaneurysm versus postsurgical changes from a previous endarterectomy. Signed by: Jay Jay Pandey Jace Sign Date/Time: 08/11/2019 7:40 AM Discharge Vitals: Vitals: 08/12/19 0344 08/12/19 0700 08/12/19 1100 08/12/19 1514 BP: 130/70 137/77 112/58 114/64 Pulse: 62 67 67 68 Resp: 16 Temp: 36.7 C (98.1 F) 36.8 C (98.3 F) 36.8 C (98.3 F) 36.9 C (98.5 F) TempSrc: Oral Oral Oral Oral SpO2: 99% 98% 99% 94% Weight: Height: Discharge Exam: Physical Exam Constitutional: Appearance: He is not toxic-appearing. HENT: Head: Normocephalic. Mouth/Throat: Mouth: Mucous membranes are moist. Eyes: General: No scleral icterus. Pupils: Pupils are equal, round, and reactive to light. Neck: Musculoskeletal: Normal range of motion. Cardiovascular: Rate and Rhythm: Normal rate. Heart sounds: No murmur. Pulmonary: Effort: No respiratory distress. Breath sounds: No wheezing. Abdominal: General: Abdomen is flat. There is no distension. Palpations: Abdomen is soft. Skin: General: Skin is warm. Coloration: Skin is not jaundiced. Neurological: General: No focal deficit present. Mental Status: He is alert and oriented to person, place, and time. Mental status is at baseline. Comments: Mild residual left facial weakness with shallower left nasal labial fold when smiling/otherwise difficult to perceive on the physical examination Psychiatric: Comments: Slightly anxious, but likely at baseline for the patient. LABS: Recent Labs Lab 08/12/19 0529 08/11/19 0252 WBC 4.73 4.90 HGB 14.5 14.3 HCT 43.2 42.3 PLT 181 183 MONOPCT 13.52 13.68 Recent Labs Lab 08/12/19 0529 08/11/19 0252 NA 141 144 K 4.3 4.4 CL 111* 111* CO2 26 27 BUN 18 11 CREA 1.1 1.18 CALCIUM 8.3* 9.3 ALKPHOS 76 85 ALT 15 8* AST 9* 17 Phosphorus: Recent Labs Lab 08/11/19 0252 MG 1.9 Recent Labs Lab 08/11/19 0252 LIPASE 34 Recent Labs Lab 08/11/19 0252 INR 1.1 PTT 28 Disposition: home under care of the family Follow up: Brittany Meehan MD [address] [facility] [address] Schedule an appointment as soon as possible for a visit in 1 week For posthospitalization reevaluation Sammie Reese MD [address] [facility] [address] Schedule an appointment as soon as possible for a visit in 2 weeks For posthospitalization reevaluation Discharge Medications Unchanged Medications Details clopidogrel 75 mg tablet Take 1 tablet by mouth Daily. aka: PLAVIX digoxin 125 mcg tablet Take 1 tablet by mouth Daily. aka: LANOXIN fenofibrate 54 mg tablet Take 1 tablet by mouth Daily. aka: LOFIBRA fluticasone 50 mcg/nasal spray 1 spray by Nasal route Daily. aka: FLONASE fluticasone-salmeterol 250-50 mcg/puff diskus inhaler Inhale 1 puff into the lungs 2 (two) times daily. aka: SAMSON GENAO INHUB losartan 50 mg tablet Take 1 tablet by mouth nightly. aka: COZAAR metoprolol succinate 50 mg 24 hr tablet Take 1 tablet by mouth Daily. aka: TOPROL-XL raNITIdine 150 mg tablet Take 150 mg by mouth Daily. aka: AROLDO Hand MD 08/12/2019 8:45 PM documented in this encounter Discharge Instructions Instructions Viktor Hand MD - 08/12/2019Formatting of this note might be different f rom the original. Understanding Dizziness, Balance Problems, and Fainting The eyes, inner ear, joints, and muscles send signals to the brain to achieve balance. Balance is a group effort of the eyes, inner ear, joints, and muscles. They each send signa ls to the brain about body position and head movement. Then the brain uses this information to achieve balance. When the brain receives conflicting signals, or when there is a problem with blood flow, dizziness or fainting can happen. Vertigo Vertigo is the feeling of spinning. It may happen if the brain receives conflicting balance signals. Vertigo is often caused by a problem in the inner ear. Problems include changes in inner ear structures, infection, swelling, or excess fluid. Sometimes vertigo is due to a b rain problem, such as migraine, stroke, or tumor. Dysequilibrium Dysequilibrium is the feeling of imbalance without a sense of spinning. It may happen if th e signal path between the body and brain is disrupted. There are many causes of dysequilibri um, including diabetes, anemia, head injury, and aging. Syncope Syncope is losing consciousness or fainting. The brain needs oxygen-rich blood to function. The heart pumps that blood to the brain. If there is a problem with the heart, blood flow ( such as low blood pressure),or blood vessels, you may faint. Date Last Reviewed: 01/24/201819997711-4694 [employer]. [address] [place] [address], [place] [address]. All righ ts reserved. This information is not intended as a substitute for professional medical care. Always follow your healthcare professional's instructions. Dizziness (Uncertain Cause) Dizziness is a common symptom. It may be described as lightheadedness, spinning, or feeling like you are going to faint. Dizziness can have many causes. Be sure to tell the healthcare provider about: All medicines you take, including prescription, [id number], herbs, and supplements Any other symptoms you have Any health problems you are being treated for Any past major health problems you've had, such as a heart attack, balance issues, heari ng problems, or blood pressure problems Anything that causes the dizziness to get worse or better Today's exam did not show an exact cause for your dizziness.Other tests may be needed. Fo llow up with your healthcare provider. Home care Dizziness that occurs with sudden standing may be a sign of mild dehydration. Drink extr a fluids for the next few days. If you recently started a new medicine, stopped a medicine, or had the dose of a current medicine changed,talk with the prescribing healthcare provider. Your medicine plan may ne ed adjustment. If dizziness lasts more than a few seconds, sit or lie down until it passes. This may he lp prevent injury in case you pass out. Get up slowly when you feel better. Don't drive or use power tools or dangerous equipment until you have had no dizziness fo r at least 48 hours. Follow-up care Follow up with your healthcare provider for further evaluation within the next 7 days or as advised. When to seek medical advice Call your healthcare provider for any of the following: Worsening of symptoms or new symptoms Passing out or seizure Repeated vomiting Headache Palpitations (the sense that your heart is fluttering or beating fast or hard) Shortness of breath Blood in vomit or stool (black or red color) Weakness of an arm or leg or 1 side of the face Vision or hearing changes Trouble walking or speaking Chest, arm, neck, back, or jaw pain Date Last Reviewed: 07/27/201719992088-4617 [employer]. [address] [place] [address]. All righ ts reserved. This information is [...] + + + +---------+ + + | digoxin (LANOXIN) | Take 1 tablet by | 30 | 11 | 06/19/20 | | | 125 mcg tablet | mouth Daily. | tablet | | 19 | 9 | + + + +---------+ + + | fenofibrate | Take 1 tablet by | 30 | 11 | 08/09/20 | | | (LOFIBRA) 54 mg | mouth Daily. | tablet | [...] | 3 | 06/19/20 | | | succinate | mouth Daily. [...] documented as of this encounter Progress Notes Tara Leiva RN - 08/11/2019 9:41 AM PST attempted to see patient but he is asleep & nobody else in room-will re-assess later as time allows. Tara Leiva RN doc umented in this encounter H&P Notes Rhoda Schultz MD - 08/11/2019 9:47 AM PSTFormatting of this note might be different f rom the original. [facility] Service: Hospitalist Admission History & Physical Pt: Simon Mccarthy AGE/SEX: 79 y.o. male ROOM: ED08/ED08 PCP: Brittany Meehan MD : 1940 TODAY'S DATE: 08/11/2019 Date of Admission: 08/11/2019 Chief Complaint: Dizziness History of Present Illness: The patient is a 79 y.o. male with significant past medical history of CAD status post CABG in 2008, bilateral carotid endarterectomy 2012, hypertension, hyperlipidemia, PAD, polycyt hemia vera, AAA, history of stroke with left-sided facial weakness and mild dysarthria in 2018 on Plavix, intolerant of statins, on Zetia sees Dr. Ryan of neurology, who was ad mitted to [facility] from May 30-2018 with a diagnosis of SVT for which he was started on metoprolol XL 50 mg 1 tablet a day and WINSOME which resolved with hydration, who now presents to the emergency department with complaint of dizziness/lightheadedness and elevated blood pressure, and feeling off balance when he walked. He reports chronic dizziness since his st roke in April. 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 He noted no changes as far as his left facial weakness or his mild dysarthria. No weakness of his arms or legs in particular but felt that he had trinh e generalized weakness. He denies fever or chills. He does have a chronic cough with white sputum but this is unchanged. He denies headache, nausea, vomiting, abdominal pain, diarrh ea, constipation, shortness of breath, chest pain. He reports mild blurriness of vision whe n he felt dizzy. He did not fall.He reports taking another dose of his losartan as his SBP was 169, but he did not feel any better so his son brought him to the ED. In the emergency department vital signs showed heart rate of 57, blood pressure 149/77, afe brile respiratory rate of 16 saturating 94 to 97% on 1 L/min. Labs showed normal CBC, chlor mariam of 111, GFR 60, troponin negative, digoxin level 0.6, BNP 122. .Initial EKG was reviewed with tick eradicator , reviewed that this NOT STEMI. CT of the head without contrast w as done which showed no acute intracranial findings, evolving infarct in the right centrum s familia-ovale originally documented in April. MRI brain without contrast showed no acute infar ct, concern for low flow within the left vertebral artery, unchanged loss of the T1 and T2 s ignal flow voids within the intradural right vertebral artery compared to previous MRI Augus t 2018. CTA of head and neck showed the left vertebral artery is widely patent and the finding on MRI was artifact. Severe stenosis of the origin of the right vertebral artery. The right foot cervical vertebral artery is small along its entire course. Occlusion within the proximal right vertebral artery unchanged compared to MRI in May 16, 2019. He failed his road test and hospitalist was called to observe patient. He was sleeping when I saw him, and was feeling better when he woke up, no dizziness. Active comorbid conditions include: - CAD - hypertension - PVD - CVA ROS: Complete ROS done, all 12 systems negative unless otherwise stated + dizziness/lightheadedness , L facial weakness and mild dysarthria unchanged, unstable gai t, fatigue , chronic cough unchanged No fevers, chills, change in appetite, weight loss, headache, focal weakness. No colds, shortness of breath, chest pain, palpitations, orthopnea, paroxysmal nocturnal dyspnea, presyncope, syncope No nausea, vomiting, abdominal pain, diarrhea, constipation, dysuria, frequency, hematuria, hematochezia and melena. 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 Hyperlipidemia Hyperlipidemia Hypertension Myalgia s/p lovastatin + meningitis Nasal and sinus discharge Occlusion of carotid artery PAD (peripheral artery disease) ([facility]) Polycythemia vera ([facility]) 2016 Renal stone Sciatica Sinusitis Chronic Stroke ([facility]) Trigeminy Ventricular pre-excitation PSHx: Past Surgical History: Procedure Laterality Date COLONOSCOPY CORONARY ARTERY BYPASS GRAFT 2008 6 vessel/ RLE veing harvest CORONARY ARTERY BYPASS GRAFT EYE SURGERY L and R CEA 2009 NASAL SEPTUM SURGERY OTHER SURGICAL HISTORY CATARACT EXTRACTION TONSILLECTOMY AND ADENOIDECTOMY Prior To admission Meds: Prior to Admission medications Medication Sig Start Date End Date Taking? Authorizing Provider clopidogrel (PLAVIX) 75 mg tablet Take 1 tablet by mouth Daily. 06/19/19 Yes MICHAEL Newell digoxin (LANOXIN) 125 mcg tablet Take 1 tablet by mouth Daily. 06/19/19 Yes MICHAEL De Leon fenofibrate (LOFIBRA) 54 mg tablet Take 1 tablet by mouth Daily. 08/09/19 MICHAEL De Leon fluticasone (FLONASE) 50 mcg/nasal spray 1 spray by Nasal route Daily. Historical Provid erMD fluticasone-salmeterol (ADVAIR, WIXELA INHUB) 250-50 mcg/puff diskus inhaler Inhale 1 puff into the lungs 2 (two) times daily. 11/28/18 Yes Historical Provider, losartan (COZAAR) 50 mg tablet Take 1 tablet by mouth nightly. 06/19/19 Yes MICHAEL De Leon metoprolol succinate (TOPROL-XL) 50 mg 24 hr tablet Take 1 tablet by mouth Daily. 06/19/19 Yes Connie Alvarez, BROILER SUPERVISOR raNITIdine (ZANTAC) 150 mg tablet Take 150 mg by mouth Daily. Historical Provider, Medications scheduled: Allergies: Allergies Allergen Reactions Penicillins Rash Statins Other (See Comments) Cramping in the legs, muscle weakness Pravastatin Other (See Comments) Family Hx: Family History Problem Relation Age of Onset Coronary artery disease Mother * Mother DJD High cholesterol Mother Hypertension Mother Kidney disease Brother * Brother AAA Social Hx: Social History Tobacco Use Smoking status: Never Smoker Smokeless tobacco: Former User Types: Chew Substance Use Topics Alcohol use: Not Currently Comment: Alcoholic Drinks/day: occasionally Objective: Vital Signs: BP 119/61 | Pulse 64 | Temp 36.2 C (97.1 F) | Resp 18 | Wt 77.3 kg (170 lb 6.7 oz) | SpO2 96% | BMI 25.17 kg/m No intake/output data recorded. Physical Exam: Constitutional: Alert and oriented to person, place and time. Appears well developed and w ell nourished. Very pleasant HEENT: atraumatic, moist mucous membranes, pink conjunctivae and anicteric sclerae. No J VD, neck supple Cardiovascular: Normal rate and rhythm. Normal heart sounds with S1 and S2. No appreciable murmurs. CABG scar. Pulmonary: Non labored breathing. Breath sounds are clear bilaterally. No wheezing or rale s. Abdominal: Soft and non-tender. Bowel sounds are present. No rebound or guarding. No CVA tenderness Extremities: trace pedal edema Neurological: AAO x3. Mild L sided facial droop otherwise no CN deficit. Motor strength 5/5 on all extremities Skin: Warm and dry. No rashes or open wounds. Psychiatric: Normal mood and affect. Normal judgment and behavior. Data: Labs: BMP 144 111* 11 118* 4.4 27 1.18 CaMgPhos 9.3 1.9 LFT 17 85 8* 3.9 CBC 4.90 14.3 183 42.3 Coag 28 1.1 Last labs from current encounter as of 08/11/19-10:54 No results for input(s): TROPONINT, CKMB in the last 168 hours. Invalid input(s): CKTOTAL, TROPONINI, CKMBINDEX, PCOTNI No results for input(s): CLARITYU, LEUKOCYTESUR, UROBILINOGEN, PHUR, BLOODU, KETONES, BILIR UBINUR, GLUCOSEU, RBCU, BACTERIA, COMU in the last 168 hours. 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 He did notice at the time that his SBP was around 170. He was admitted for rule out stroke. Symptoms started about 4 PM yesterday and he came about [address] had was negative for acute stroke. MRI brain without contrast showed no acute infarct but w as worrisome for possible slow flow in the left vertebral artery, right vertebral artery T1 and T2 signal flow voids were unchanged compared to April [address]. [address] angiogr am head and neck was pursued which revealed that the left vertebral artery was widely paten t and the flow voids seen in the previous MRI was artifact. Patient did fail his road test in the ED and hospitalist has been asked to evaluate the patient. I will refer patient for observation. Monitor on telemetry. He does have a history of recent admission for SVT for which he was started on metoprolol. I will continue his Plavix. I will add aspirin low-dos e. He is intolerant of statins. He is on Zetia which will be continued. Physical therapy evaluation and treatment before discharge to assess stability of gait. Echo was done April 2019 EF 65 to 70%, mild aortic regurgitation, mild to moderate MR, ascending aorta mildly d ilated measuring up to 3.9 cm for which he was advised to follow-up as an outpatient.His Micheal rologist is Dr Reese. Active Problems: Dyslipidemia Intolerant of statins, continue ezetimibe, check lipid panel SVT (supraventricular tachycardia) Had a recent discharge for same, he was started on metoprolol. He is also on digoxin.Dig l evel 0.6 Cough variant asthma Also has a history of chewing tobacco but stopped many years ago No acute exacerbation, does have a chronic unchanged cough Statin intolerance Lovenox subcutaneous and SCDs for DVT prophylaxis More than 70 mins were spent on the review of H/P, imaging and labs, formulation of assessm ent and plan, discussion with the patient/family, staff and providers. [employer] used to dic brewer information. Errors may have occurred due to same. For any inconsistencies, you can con tact me for questions. Code Status: Prior Primary Care Physician: MD Rhoda Knowles MD 08/11/2019 10:54 AM documented in this encounter ED Notes India Hough RN - 08/11/2019 7:30 AM PSTBedside report given to Xiomara CHO, sonam quiñones pt arrival symptoms, PMH, labs/meds/rad and vitals. No further questions noted. ndia Hough RN - 08/11/2019 5:16 AM PSTPt very unsteady w/ ambulation, pt having to have assist and using the wall for balance. Failed road test, provider notified. Electronically signed by India Hough RN at 5:32 AM Nicky Alfredo DO - 08/11/2019 2:05 AM PSTFormatting of this note keaton ht be different from the original. [facility] Department of Emergency Medicine 08/11/2019 2:05 AM No flowsheet data found. History of Present Illness Patient Identification Simon Mccarthy is a 79 y.o. male. Patient information was obtained from patient History/Exam limitations: none. Patient presented to the Emergency Department by: Car Chief Complaint Chief Complaint Patient presents with Dizziness Hypertension 79 y.o. male with history of HTN, CEA and CABG presents to the ED complaining of dizziness and elevated blood pressure. Onset of symptoms was suddenly at 4 PM, with a stent course si nce that time. The patient describes the symptoms as creased weakness. He denies sensation of spinning. Denies tinnitus or hearing loss. The patient reports duration worsens symptom s, and somewhat improves symptoms. Care prior to arrival consisted of her losartan, with rel ief., He actually felt more lightheaded after taking the losartan. The patient also complains of fatigue since his last admission for stroke. He was left wit h a mild residual left facial weakness and mild dysarthria. Patient states that he is very off balance and has become progressively weaker. They are c oncerned that the medication changes on his last admission have caused this. Patient denies fever, chest pain, abdominal pain, problems with his bowel movements or urination. 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 Hyperlipidemia Hyperlipidemia Hypertension Myalgia s/p lovastatin + meningitis Nasal and sinus discharge Occlusion of carotid artery PAD (peripheral artery disease) ([facility]) Polycythemia vera ([facility]) 2016 Renal stone Sciatica Sinusitis Chronic Stroke ([facility]) Trigeminy Ventricular pre-excitation Past Surgical History: Procedure Laterality Date COLONOSCOPY CORONARY ARTERY BYPASS GRAFT 2008 6 vessel/ RLE veing harvest CORONARY ARTERY BYPASS GRAFT EYE SURGERY L and R CEA 2010 NASAL SEPTUM SURGERY OTHER SURGICAL HISTORY CATARACT EXTRACTION TONSILLECTOMY AND ADENOIDECTOMY Prior to Admission medications Medication Sig Taking? clopidogrel (PLAVIX) 75 mg tablet Take 1 tablet by mouth Daily. digoxin (LANOXIN) 125 mcg tablet Take 1 tablet by mouth Daily. fenofibrate (LOFIBRA) 54 mg tablet Take 1 tablet by mouth Daily. fluticasone (FLONASE) 50 mcg/nasal spray 1 spray by Nasal route Daily. fluticasone-salmeterol (ADVAIR, WIXELA INHUB) 250-50 mcg/puff diskus inhaler Inhale 1 puff into the lungs 2 (two) times daily. losartan (COZAAR) 50 mg tablet Take 1 tablet by mouth nightly. metoprolol succinate (TOPROL-XL) 50 mg 24 hr tablet Take 1 tablet by mouth Daily. raNITIdine (ZANTAC) 150 mg tablet Take 150 mg by mouth Daily. Allergies Allergen Reactions Penicillins Rash Statins Other (See Comments) Cramping in the legs, muscle weakness Pravastatin Other (See Comments) Immunization History Administered Date(s) Administered INFLUENZA PF 18 Y OR >,TRIVALENT RECOMBINANT 06/26/2012 Social History Socioeconomic History Marital status: Spouse [...] file Gets together: Not on file Attends [employer] service: Not on file Active member of [...] Mother Kidney disease Brother * Brother AAA Review of Systems Constitutional: Negative for fever, chills positive for lightheadedness. Positive for fatigue Eyes: Negative for vision changes or photophobia Nose: Negative for congestion Throat: Negative for sore throat or swelling CV/Resp: Negative for chest pain Negative for [id number] Negative for cough GI: Negative for abdominal pain Negative for nausea Negative for vomiting Negative for constipation Negative for diarrhea Negative for black or bloody stools : Negative for urinary frequency Negative for pain with urination Musculoskeletal: Negative for back pain Negative for neck pain or stiffness. Skin: Negative for rash Neuro/Psych: As a day for generalized weakness and lightheadedness positive for gradual onset right-sided headache began about an hour ago while in the [facility]. All other systems reviewed and negative except as noted. Physical Exam Temp: 36.6 C (97.9 F) Pulse: 63 SpO2: 97 % Resp: 18 BP: 133/66 Vital signs interpretation: Normal General: Appears fatigued and somewhat pale, in no apparent distress HEENT: Normal inspection, PERRLA, non-icteric, EOM's intact HINTS (Head Impulse, Nystagus, Test of Skew) testing: No spontaneous nystagmus No direction changing gaze evoked nystagmus With head in neutral position no nystagmus on far right or far left gaze No strabismus or ocular malalignment with alternate cover test Head impulse test is normal Ears normal Nose normal Pharynx normal, mucous membranes are dry. Neck: Normal inspection Supple, no lymphadenopathy Non-tender to palpation. No carotid bruits Cardiovascular: Rate normal, rhythm normal No murmurs, clicks or rubs Heart sounds are easily auscultated Chest non-tender to palpation Respiratory: Normal work of breathing Breath sounds equal bilaterally No rales, wheezing or rhonchi Abdomen: Soft, non-tender, non-distended Normal bowel sounds No guarding or rebound No masses. No pulsatile masses. Back: Normal inspection, no CVA tenderness or spinal tenderness Skin: Color pale Warm and dry No rash Extremities: No swelling or pitting edema. No calf tenderness or palpable cords. Neuro: Alert and Oriented x 3 Speech is low and slightly dysarthric No aphasia or dysarthria No facial droop PERRLA 4mm, EOMI, no nystagmus Neg ji-hallpike testing CN II-XII intact there than subtle left facial droop which spares the forehead Motor strength 5/5 upper and lower extremities No pronator drift No lower extremity drift No sensory deficits Intact finger to nose Gait is unsteady and slow he does seem to lean slightly to the right. Medical Decision Making and Emergency Department Course ED Department Course Patient presents to ED with complaints of Abigail lightheadedness. This is most likely cau sed by Gwendolyn. My DDx also includes, but is not limited to: Vision side effects, renal hemorrh age, ACS, electrolyte abnormality, renal failure. Will treat as shown below and reevaluate t he patient. Patient's condition is guarded at this time. 2:51 AM I spoke with Dr. Reddy, Dry Cell Battery Assembler. We discussed the patient's case and based on EKG he wo uld not call a cardiac team activation and that this is not a STEMI. 5:01 AM Patient reassessed. He is feeling better. Discussed on decreasing metoprolol for a week. He is happy to be discharged home. Will order repeat EKG and plan for road test. Son will be s taying with patient for the weekend and helping with getting him around his house. 5:29 AM Per RN, patient has failed his road test. He is clinging on the wall when attempting to use the restroom. 6:24 AM Call from radiology low flow or thrombus in the left vertebral artery. Would recommend CTA . However no new areas of stroke on MRI. 7:[address] Schultz regarding case. She will evaluation pt for admission under the hospi talist service. Updated pt as to the results of his CTA no significant change from prior im aging. Medications - No data to display Admission Upon review of the patient s history, physical and the results of studies I believe that the patient warrants admission to the hospital for further evaluation and treatment. I have spoken with the patient regarding the need for admission to the hospital, and the patient h as expressed understanding of this. I will call and arrange for admission at this time. Records Reviewed Nursing notes were reviewed for chief complaint, medications, clinical presentation and vi brent signs. Old ED records were reviewed as available (Using the electronic record system of [facility], with regard to the past medical/surgical history, previous medications, and all ergies). Laboratory Evaluation Results Procedure Component Value Ref Range Date/Time Digoxin Level [[id number]] (Abnormal) Collected: 08/11/19251 Order Status: Completed Updated: 08/11/19 05 Date of Last Dose -- Time of Last Dose -- Digoxin level 0.6 0.90 - 2.00 ng/mL Protime INR [[id number]] Collected: 08/11/19251 Order Status: Completed Specimen: Blood Updated: 08/11/19333 INR 1.1 PTT [[id number]] Collected: 08/11/19251 Order Status: Completed Specimen: Blood Updated: 08/11/19333 PTT 28 23 - 32 seconds B Type Natriuretic Peptide [[id number]] (Abnormal) Collected: 08/11/19252 Order Status: Completed Specimen: Blood Updated: 08/11/19326 BNP 122.18 0 - 100 pg/mL Comprehensive Metabolic Panel [[id number]] (Abnormal) Collected: 08/11/19251 Order Status: Completed Specimen: Blood Updated: 08/11/19320 Na 144 135 - 145 mmol/L K 4.4 3.5 - 4.9 mmol/L Cl 111 99 - 109 mmol/L CO2 27 23 - 32 mmol/L Anion Gap 10 5 - 20 mmol/L Glucose 118 65 - 99 mg/dL BUN 11 8 - 25 mg/dL Creatinine 1.18 0.70 - 1.30 mg/dL BUN/Creatinine Ratio 9 Calcium 9.3 8.5 - 10.5 mg/dL Protein, Total 6.0 6.3 - 8.2 g/dL Albumin 3.9 3.3 - 4.8 g/dL Globulin 2.1 1.3 - 4.9 g/dL A/G Ratio 1.9 1.0 - 2.4 BILIRUBIN, TOTAL 0.7 0.1 - 1.5 mg/dL ALK PHOS 85 35 - 115 U/L AST 17 10 - 45 U/L ALT 8 10 - 65 U/L Estimated GFR 60 >60 mL/min/1.73m2 Lipase [[id number]] Collected: 08/11/19251 Order Status: Completed Specimen: Blood Updated: 08/11/19320 Lipase 34 12 - 53 U/L Magnesium [[id number]] Collected: 08/11/19251 Order Status: Completed Specimen: Blood Updated: 08/11/19320 Magnesium 1.9 1.7 - 2.4 mg/dL Troponin I [[id number]] Collected: 08/11/19251 Order Status: Completed Specimen: Blood Updated: 08/11/19320 Troponin I 0.028 0.00 - 0.04 ng/mL CBC with Differential [[id number]] (Abnormal) Collected: 08/11/19251 Order Status: Completed Specimen: Blood Updated: 08/11/19302 WBC 4.90 3.80 - 11.00 K/uL RBC 4.82 4.20 - 5.70 M/uL Hemoglobin 14.3 13.2 - 17.0 g/dL Hematocrit 42.3 39.0 - 50.0 % MCV 87.8 80.0 - 100.0 fl MCH 29.7 27.0 - 34.0 pg MCHC 33.9 32.0 - 35.5 g/dL RDW-SD 47.7 37 - 53 fl Platelet Count 183 150 - 400 K/uL MPV 8.9 fl Diff Type AUTOMATED % Neutrophils 66.01 % % Lymphocytes 11.58 % Monocyte % 13.68 % Eosinophils % 7.60 % Basophils % 1.13 % Neutrophils, Absolute 3.23 1.90 - 7.40 K/uL Absolute Lymphocytes 0.57 1.00 - 3.90 K/uL Absolute Monocytes 0.67 0.00 - 0.80 K/uL Eosinophils, Absolute 0.37 0.00 - 0.50 K/uL Basophils, Absolute 0.06 0.00 - 0.10 K/uL I personally reviewed the lab results and they have been posted to the chart. Pertinent po sitive and negative findings have been addressed appropriately. EKG and Radiology Evaluation Imaging Results CT Angiogram Head Neck w Contrast (Final result) Result time 08/11/19 07:40:20 Final result by Amrit Pandey DO (08/11/19 07:40:20) Impression: 1. No intracranial hemorrhage or CT evidence of acute infarct. 2. 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 The right cervical vertebral artery is small along its entire course. There is occlusion within the proximal intradural right vertebral artery which is unchanged compared to the previous MRI on 05/16/2019. 3. The left vertebral artery is widely patent. The loss of T2 flow void on the previous MRI most likely represents artifact from slow flow or volume averaging. 4. 9 mm focal outpouching at the left proximal ICA most likely represents a pseudoaneurysm versus postsurgical changes from a previous endarterectomy. Signed by: Jay Jay Pandey Jace Sign Date/Time: 08/11/2019 7:40 AM Narrative: CT ANGIOGRAM OF THE HEAD WITHOUT AND WITH CONTRAST; CT ANGIOGRAM OF THE NECK WITH CONTRAST CLINICAL INFORMATION: Ataxia. COMPARISON: MRI brain 08/11/2019. PROCEDURE: CT Head: Axial images were obtained [...] were obtained from the acquisition data. Contrast: 100 ml Omnipaque 350 IV. At least one of the following CT dose optimization techniques were used: Automated exposure control; Adjustment of mA and/or kV according to patient size; Use of iterative reconstruction technique. FINDINGS: CT Head: Brain: Focus of hypoattenuation within the right melissa radiata consistent with previous infarct. No intracranial hemorrhage. No intracranial mass or mass effect. No evidence for infarct. Periventricular and subcortical foci of decreased white matter attenuation are nonspecific finding but likely related to chronic microvascular ischemic disease. Ventricles and extra-axial fluid spaces: Normal. Paranasal sinuses and mastoid air cells: Normal. Calvarium and extracranial soft tissues: Normal. Orbits: Imaged portions of the orbits are normal. CTA Head: Intracranial Segments of the Internal Carotid Arteries: Scattered calcified atheromatous changes involving the bilateral cavernous ICA result in mild stenosis of the bilateral distal cavernous ICAs. Middle Cerebral Arteries: Normal contrast enhancement without evidence of occlusion, intraluminal thrombus, significant stenosis, or aneurysm. Anterior Cerebral Arteries: Normal contrast enhancement without evidence of occlusion, intraluminal thrombus, significant stenosis, or aneurysm. Posterior Circulation: There is occlusion of the right intradural vertebral artery which was likely present on the previous MRI on 05/16/2019. The left vertebral artery is normal in caliber. The loss of T2 flow void on the previous MRI most likely represents a slow flow. The basilar artery is normal in caliber. The inferior and superior cerebellar arteries are normal in caliber. The bilateral process owner are normal in caliber. CTA Neck: Aortic Arch: Conventional anatomy. Brachiocephalic artery demonstrate normal contrast enhancement without evidence of occlusion, intraluminal thrombus, or significant stenosis. Fibrofatty atheromatous changes at the origin of the right subclavian artery without significant stenosis. Fibrofatty atheromatous changes involving the proximal left subclavian artery results in mild stenosis. Right Carotid Artery: Carotid origin, common carotid artery, carotid bifurcation, external carotid artery, and cervical segments of the internal carotid artery demonstrate normal contrast enhancement without evidence of occlusion, intraluminal thrombus, dissection, or significant stenosis. 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 Fibrofatty atheromatous changes within the left common carotid artery result in approximately 40% stenosis. Vertebral Arteries: Atheromatous changes at the origin the right vertebral artery result in severe stenosis. The left vertebral artery is dominant and the right vertebral artery is small along its entire course. No stenosis of the left vertebral artery. Other: Visualized lung apices are clear. No cervical adenopathy. MRI Brain wo Contrast (Final result) Result time 08/11/19 06:24:43 Final result by Amrit Pandey DO (08/11/19 06:24:43) Impression: 1. No evidence for acute infarct. No evidence for intracranial hemorrhage. 2. New loss of T2 signal flow void within the intradural left vertebral artery which could represent slow flow from stenosis or occlusion. 3. Unchanged loss of the T1 and T2 signal flow voids within the intradural right vertebral artery compared to the previous MRI. Signed by: Jay Jay Pandey Jace Sign Date/Time: 08/11/2019 6:24 AM Narrative: MRI BRAIN WITHOUT CONTRAST CLINICAL INFORMATION: Ataxia and dizziness. COMPARISON: MRI brain [id number]. CT head 08/11/2019 PROCEDURE: Sagittal T1, axial FLAIR, axial T2, axial T1, axial gradient susceptibility, coronal T2, axial DWI. FINDINGS: Brain: Encephalomalacia within the right melissa radiata consistent with a old infarct. No evidence of acute infarct. No intracranial hemorrhage. No intracranial mass or mass effect. Scattered periventricular and subcortical foci of T2 signal alteration are nonspecific finding but commonly associated with chronic microvascular ischemic changes. Ventricles and extra-axial fluid spaces: Ventricles are normal in size and configuration. No extra-axial fluid collection. Sella, suprasellar cistern, and orbits: Normal. Major vascular flow voids: There is loss of the T2 flow void within the intradural left vertebral artery and proximal intradural right vertebral artery. The loss of flow void within the intradural right vertebral artery appears to be unchanged compared to the previous MRI on 05/16/2019. Calvarium and extracranial soft tissues: Normal. Paranasal sinuses and mastoid air cells: Mild mucosal thickening within the maxillary sinuses and ethmoid air cells. Mastoid air cells are clear. CT Head wo Contrast (Final result) Result time 08/11/19 02:46:53 Final result by Justin May MD (08/11/19 02:46:53) Impression: 1. No acute intracranial findings. No evidence of mass effect, acute hemorrhage or definite acute cortical infarct. 2. 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 Signed by: Lakshmi May Robin Sign Date/Time: 08/11/2019 2:46 AM Narrative: CT HEAD WITHOUT CONTRAST CLINICAL INFORMATION: Headache and dizziness. COMPARISON: MRI BRAIN WO CONTRAST (05/16/2019); CT ANGIOGRAM HEAD NECK ACUTE STROKE (05/16/2019); SINUS LIMITED WO CONTRAST (07/13/2013); PROCEDURE: Axial images were obtained through the head without IV contrast. Multiplanar reformations were obtained from the acquisition data. At least one of the following CT dose optimization techniques were used: Automated exposure control; Adjustment of mA and/or kV according to patient size; Use of iterative reconstruction technique. FINDINGS: Brain: No intracranial hemorrhage, midline shift or pathologic mass effect. No cerebral edema, mass lesion, or evidence of acute infarct. 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 Ventricles and extra-axial fluid spaces: Normal. Paranasal sinuses and mastoid air cells: Normal. Calvarium and extracranial soft tissues: Normal. Orbits: Imaged portions of the orbits are normal. XR Chest AP Portable (Final result) Result time 08/11/19 02:30:50 Final result by Justin May MD (08/11/19 02:30:50) Impression: No acute cardiopulmonary process. Signed by: Lakshmi May, Justin Sign Date/Time: 08/11/2019 2:30 AM Narrative: CHEST PORTABLE ONE VIEW CLINICAL INFORMATION: Dizziness and hypertension. COMPARISON: XR CHEST AP PORTABLE (05/30/2019); XR CHEST AP PORTABLE (05/28/2019); CHEST W/O CONTRAST (07/13/2013); CT ANGIOGRAM HEAD NECK ACUTE STROKE (05/16/2019); FINDINGS: Cardiomediastinal contours are within normal limits. Postsurgical changes of prior open heart surgery. Lungs are clear. No large effusion. No visible pneumothorax. No acute bony abnormalities. Surgical clips overlie both sides of the neck. EKG performed at 2:41 Sinus bradycardia at a rate of 58 bpm Normal axis Intervals normal [address] segment elevation on lead V2 1st degree AV block similar to prior to EKG Normal T wave morphology No acute ischemia. Interpreted by me at time of service EKG performed Repeat EKG unchanged Diagnosis: 1. Ataxia 2. Sinus bradycardia 3. Generalized weakness 4. Ambulatory dysfunction 5. Dizziness Disposition: ED Disposition ED Disposition Condition Comment Admit Clinical impression: Ataxia [[id number]] Admitting provider: [facility] [[id number]] Expected patient class: Observation [104] Level of service: Medical Telemetry: Telemetry Attending Provider Note: I, Nicky Means DO personally performed the services described in this documentation, as scribed by Eugenio Hall in my presence, and it is both accurate and complete. Chart Reviewed and Completed. Scribe: Jennifer Larkin, scribing for and in the presence of Nicky Means DO. Completed by: Jennifer Rodriguez 08/11/2019 6:19 AM This chart has in part been created using [employer] Speech Recognition software. The c leiva has been reviewed and there may still exist sound alike word errors. Nicky Means DO Procedures Nicky Means DO 08/11/192129 documented in this en counter Miscellaneous Notes Plan of Enrique - Concepcion Jones RN - 08/12/2019 7:00 PM PSTPt stable at time of discha rge. Discharge instructions given and reviewed with patient and patient's son. All pt quest ions answered. Discharged via private vehicle with son. lan of Rukhsana Hawkins RN - 08/12/2019 3:58 PM PSTPt ambulated in hallways, approx 200 feet. Steady gait noted. No edisodes of dizziness , pain or SOB reported. Plan to d/c later today. lan of uRkhsana Hawkins RN - 08/12/2019 1:12 PM PST Problem: Adult Inpatient Plan of Care Goal: Absence of Hospital-Acquired Illness or Injury Outcome: Ongoing, progressing Pt ID and allergy bands on. Aware of how and when to use call light. Call light and bedsid e table within reach. Bed in low and locked position. Room free of clutter. lan of Candy Daniels RN - 12:26 AM PST Problem: Swallowing Impairment Goal: Improved Swallowing Without Aspiration Outcome: Ongoing, progressing Problem: Adult Inpatient Plan of Care Goal: Plan of Care Review Outcome: Ongoing, progressing Goal: Patient-Specific Goal Outcome: Ongoing, progressing Goal: Absence of Hospital-Acquired Illness or Injury Outcome: Ongoing, progressing Goal: Optimal Comfort and Wellbeing Outcome: Ongoing, progressing Goal: Readiness for Transition of Care Outcome: Ongoing, progressing Goal: Rounds/Family Conference Outcome: Ongoing, progressing Pt swallowing well and finished dinner try without any problems. Pt educated on plan of ca re and verbalizes understanding. lan of Stoney Daniels RN - 08/11/2019 7:26 PM PSTPt eating his dinner tray and tolerating well.Electronical ly signed by Candy Yi RN at 08/11/2019 7:26 PM PSTPlan of Rangel Carrasquillo RN - 08/11/2019 7:14 PM PSTVSS. Chart check complete. Rangel Bailey RN lan of Jeanette Duque PT - 08/11/2019 1:00 PM PSTFormatting of this note might be different from t dora original. 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 Identified Problems Needing Skilled Intervention: CVA-last month- felt similar symptoms, fu nctional endurance/activity tolerance, gait, locomotion, and balance Physical Therapy Discharge Recommendations are: Recommended discharge disposition: home with assist Post discharge physical therapy recommendation: (patient declied need) Equipment Recommendations: none Planned Interventions: balance training, bed mobility training, gait training, home exerci se program, joint mobilization, lumbar stabilization, manual therapy techniques, motor coord ination training, neuromuscular re-education, orthotic fitting/training, patient/family educ ation, postural re-education, ROM (Range of Motion), stair training, strengthening, stretchi ng, transfer training Recommended Frequency: 4 times/wk Patient Status/Goals: Reflects last filed data and may be from multiple contributors. Bed Mobility independent Transfers independent today Gait slight lean to L-to clear R-LE Level of Hitchcock: contact guard assist Assistive Device: gait belt, other (see comments)(used hand rail 75% of time) Distance (feet): 50ft x2 Stairs Wheelchair Mobility Balance Therapeutic Exercise Functional Endurance ROM functional ROM-mild loss at end ROM Strength functional strength- demo-ed during eval no MMT PT Goal Review Date Most Recent Value STG Review Date 08/18/19 at 08/11/2019 1300 Balance Standing Static Goal Most Recent Value LTG Status new at 08/11/2019 1300 LTG stand 30 seconds in each balance position-up to 30 seconds at 08/11/2019 1300 Balance Standing Dynamic Goal Most Recent Value LTG Status new at 08/11/2019 1300 LTG complete a DGI or Tinetti NAMRATA at 08/11/2019 1300 Gait Goal Most Recent Value LTG Status new at 08/11/2019 1300 LTG Hitchcock Level modified independent at 08/11/2019 1300 LTG Assistive Device none at 08/11/2019 1300 LTG Distance (feet) 1000ft at 08/11/2019 1300 Stair Goal Most Recent Value LTG Status new at 08/11/2019 1300 LTG Hitchcock Level modified independent at 08/11/2019 1300 LTG Assistive Device 1 rail at 08/11/2019 1300 LTG Number of Stairs 3 at 08/11/2019 1300 PT Time Calculation Individual Start Time: 1300 Individual Stop Time: 1340 Individual Total Time: 40 PT Total Treatment Time: 40 Electronically signed by: JEANETTE PRICE, PT, 08/11/2019 2:17 PM Dizziness [R42] Ataxia [R27.0] Sinus bradycardia [R00.1] Generalized weakness [R53.1] Ambulatory dysfunction [R26.2] lan of Care - Rangel Bailey RN - 08/11/2019 12:09 PM PST Problem: Adult Inpatient Plan of Care Goal: Plan of Care Review Outcome: Ongoing, progressing Flowsheets (Taken 08/11/2019 1208) Plan of Care Reviewed With: patient Goal: Patient-Specific Goal Outcome: Ongoing, progressing Goal: Absence of Hospital-Acquired Illness or Injury Outcome: Ongoing, progressing documented in this encounter Plan of Treatment +--------+---------+ + + + | Date | Type | Specialty | Care Team | Description | +--------+---------+ + + + | 06/25/ | Office | Cardiology | Connie Alvarez | | | 2019 | Visit | | [address] | | | | | | [address] | | | | | | [place] [address] | | | | | | [phone] | | | | | | | | +--------+---------+ + + + documented as of this encounter Procedures + +--------+ + + + | Procedure Name | Priori | Date/Time | Associated Diagnosis | Comments | | | ty | | | | + +--------+ + + + | POC GLUCOSE (NON | Routin | 08/12/2019 | | Results for this | | ORD) | e | 4:15 PM | | procedure are in the | | | | PST | | results section. | + +--------+ + + + | POC GLUCOSE (NON | Routin | 08/12/2019 | | Results for this | | ORD) | e | 11:29 AM | | procedure are in the | | | | PST | | results section. | + +--------+ + + + | POC GLUCOSE (NON | Routin | 08/12/2019 | | Results for this | | ORD) | e | 7:48 AM | | procedure are in the | | | | PST | | results section. | + +--------+ + + + | CBC WITH | Routin | 08/12/2019 | | Results for this | | DIFFERENTIAL | e | 5:29 AM | | procedure are in the | | | | PST | | results section. | + +--------+ + + + | COMPREHENSIVE | Routin | 08/12/2019 | | Results for this | | METABOLIC PANEL | e | 5:29 AM | | procedure are in the | | | | PST | | results section. | + +--------+ + + + | POC GLUCOSE (NON | Routin | 08/11/2019 | | Results for this | | ORD) | e | 8:52 PM | | procedure are in the | | | | PST | | results section. | + +--------+ + + + | LIPID PANEL | Routin | 08/11/2019 | | Results for this | | | e | 12:08 PM | | procedure are in the | | | | PST | | results section. | + +--------+ + + + | CT ANGIOGRAM HEAD | PILY | 08/11/2019 | | Results for this | | NECK | | 7:06 AM | | procedure are in the | | | | PST | | results section. | + +--------+ + + + | MRI BRAIN WO | PILY | 08/11/2019 | | Results for this | | CONTRAST | | 6:07 AM | | procedure are in the | | | | PST | | results section. | + +--------+ + + + | ECG 12 LEAD | PILY | 08/11/2019 | | Results for this | | | | 5:20 AM | | procedure are in the | | | | PST | | results section. | + +--------+ + + + | B TYPE NATRIURETIC | STAT | 08/11/2019 | | Results for this | | PEPTIDE | | 2:53 AM | | procedure are in the | | | | PST | | results section. | + +--------+ + + + | TROPONIN I | Routin | 08/11/2019 | | Results for this | | | e | 2:52 AM | | procedure are in the | | | | PST | | results section. | + +--------+ + + + | PTT | STAT | 08/11/2019 | | Results for this | | | | 2:52 AM | | procedure are in the | | | | PST | | results section. | + +--------+ + + + | PROTIME INR | STAT | 08/11/2019 | | Results for this | | | | 2:52 AM | | procedure are in the | | | | PST | | results section. | + +--------+ + + + | CBC WITH | STAT | 08/11/2019 | | Results for this | | DIFFERENTIAL | | 2:52 AM | | procedure are in the | | | | PST | | results section. | + +--------+ + + + | MAGNESIUM | STAT | 08/11/2019 | | Results for this | | | | 2:52 AM | | procedure are in the | | | | PST | | results section. | + +--------+ + + + | LIPASE | STAT | 08/11/2019 | | Results for this | | | | 2:52 AM | | procedure are in the | | | | PST | | results section. | + +--------+ + + + | DIGOXIN LEVEL | Routin | 08/11/2019 | | Results for this | | | e | 2:52 AM | | procedure are in the | | | | PST | | results section. | + +--------+ + + + | COMPREHENSIVE | STAT | 08/11/2019 | | Results for this | | METABOLIC PANEL | | 2:52 AM | | procedure are in the | | | | PST | | results section. | + +--------+ + + + | ECG 12 LEAD | STAT | 08/11/2019 | | Results for this | | | | 2:41 AM | | procedure are in the | | | | PST | | results section. | + +--------+ + + + | CT HEAD WO CONTRAST | PILY | 08/11/2019 | | Results for this | | | | 2:41 AM | | procedure are in the | | | | PST | | results section. | + +--------+ + + + | XR CHEST AP PORTABLE | STAT | 08/11/2019 | | Results for this | | | | 2:26 AM | | procedure are in the | | | | PST | | results section. | + +--------+ + + + documented in this encounter Results POC Glucose (08/12/2019 4:15 PM PST) + + + + + + | Component | Value | Ref Range | Performed | Pathologist | | | | | At | Signature | + + + + + + | Glucose, | 123 (H)Comment: Testing | 65 - 99 mg/dL | [facility] | | | POC | performed at [facility] [place] | | [facility]AT[facility] | | | | [address];[place], [place] | | | | | | [address] | | | | + + + + + + + + | Specimen | + + | | + + + + + + + | Performing | Address | City/State/Zipcode | Phone Number | | Organization | | | | + + + + + | [facility] | [address] | [place] [address] | [phone] | + + + + + POC Glucose (08/12/2019 11:29 AM PST) + + + + + + | Component | Value | Ref Range | Performed | Pathologist | | | | | At | Signature | + + + + + + | Glucose, | 150 (H)Comment: Testing | 65 - 99 mg/dL | [facility] | | | POC | performed at [facility] | | [facility]AT[facility] | | | | [address];[place] | | | | | | [address] | | | | + + + + + + + + | Specimen | + + | | + + + + + + + | Performing | Address | City/State/Zipcode | Phone Number | | Organization | | | | + + + + + | [facility] | [address] | [place] [address] | [phone] | + + + + + POC Glucose (08/12/2019 7:48 AM PST) + + + + + + | Component | Value | Ref Range | Performed | Pathologist | | | | | At | Signature | + + + + + + | Glucose, | 95Comment: Testing | 65 - 99 mg/dL | [facility] | | | POC | performed at [facility] | | [facility]AT[address] | | | [address];[place], [place] | | | | | | [address] | | | | + + + + + + + + | Specimen | + + | | + + + + + + + | Performing | Address | City/State/Zipcode | Phone Number | | Organization | | | | + + + + + | [facility] | [address] | [place] [address] | [phone] | + + + + + Comprehensive Metabolic Panel (08/12/2019 5:29 AM PST) + + + + + [...] + + + + | Cl | 111 (H) | 99 - 109 mmol/L | [facility] | | | | | | LABORATORY | | + + + + + + | CO2 | 26 | 23 - 32 mmol/L | [facility] | | | | | | LABORATORY | | + + + + + + | Anion Gap | 8 | 5 - 20 mmol/L | [facility] | | | | | | LABORATORY | | + + + + + + | Glucose | 97 | 65 - 99 mg/dL | [facility] | | | | | | LABORATORY | | + + + + + + | BUN | 18 | 8 - 25 mg/dL | [facility] | | | | | | LABORATORY | | + + + + + + | Creatinine | 1.1 | 0.70 - 1.30 | [facility] | | | | | mg/dL | LABORATORY | | + + + + + + | BUN/Creatin | 16 | | [facility] | | | ine Ratio | | | LABORATORY | | + + + + + + | Calcium | 8.3 (L) | 8.5 - 10.5 | [facility] | | | | | mg/dL | LABORATORY | | + + + + + + | Protein, | 6.0 (L) | 6.3 - 8.2 g/dL | [facility] | | | Total | | | LABORATORY | | + + + + + + | Albumin | 2.9 (L) | 3.3 - 4.8 g/dL | [facility] | | | | | | LABORATORY | | + + + + + + | Globulin | 3.1 | 1.3 - 4.9 g/dL | [facility] | | | | | | LABORATORY | | + + + + + + | A/G Ratio | 0.9 (L) | 1.0 - 2.4 | [facility] | | | | | | LABORATORY | | + + + + + + | BILIRUBIN, | 0.6 | 0.1 - 1.5 mg/dL | [facility] | | | TOTAL | | | LABORATORY | | + + + + + + | ALK PHOS | 76 | 35 - 115 U/L | [facility] | | | | | | LABORATORY | | + + + + + + | AST | 9 (L) | 10 - 45 U/L | [facility] | | | | | | LABORATORY | | + + + + + + | ALT | 15 | 10 - 65 U/L | [facility] [...] | | | | | performed at [facility], [address] | | | | | | [facility], | | | | | | [place] [address] | | | | + + + + + + + + | Specimen | + + | Blood | + + + + + + + | Performing | Address | City/State/Zipcode | Phone Number | | Organization | | | | + + + + + | [facility] | [address] | [place] [address] | [phone] | + + + + + CBC with Differential (08/12/2019 5:29 AM PST) + + + + + + | Component | Value | Ref Range | Performed | Pathologist | | | | | At | Signature | + + + + + + | WBC | 4.73 | 3.80 - 11.00 | [facility] | | | | | K/uL | LABORATORY | | + + + + + + | Red Blood | 4.90 | 4.20 - 5.70 | [facility] | | | Cells | | M/uL | LABORATORY | | + + + + + + | Hemoglobin | 14.5 | 13.2 - 17.0 | [facility] | | | | | g/dL | LABORATORY | | + + + + + + | Hematocrit | 43.2 | 39.0 - 50.0 % | [facility] | | | | | | LABORATORY | | + + + + + + | MCV | 88.0 | 80.0 - 100.0 fl | [facility] | | | | | | LABORATORY | | + + + + + + | MCH | 29.6 | 27.0 - 34.0 pg | [facility] [...] + + + + | Platelet | 181 | 150 - 400 K/uL | [facility] [...] + + + + | % | 60.70 | % | [facility] | | | Neutrophils | | | LABORATORY | | + + + + + + | % | 15.87 | % | [facility] | | | Lymphocytes | | | LABORATORY | | + + + + + + | Monocyte % | 13.52 | % | [facility] | | | | | | LABORATORY | | + + + + + + | Eosinophils | 9.21 | % | [facility] | | | % | | | LABORATORY | | + + + + + + | Basophils % | 0.70 | % | [facility] | | | | | | LABORATORY | | + + + + + + | Neutrophils | 2.87 | 1.90 - 7.40 | [facility] | | | , Absolute | | K/uL | LABORATORY | | + + + + + + | Absolute | 0.75 (L) | 1.00 - 3.90 | [facility] | | | Lymphocytes | | K/uL | LABORATORY | | + + + + + + | Absolute | 0.64 | 0.00 - 0.80 | [facility] | | | Monocytes | | K/uL | LABORATORY | | + + + + + + | Eosinophils | 0.44 | 0.00 - 0.50 | [facility] | | | , Absolute | | K/uL | LABORATORY | | + + + + + + | Basophils, | 0.03Comment: Testing | 0.00 - 0.10 | [facility] | | | Absolute | performed at [facility], [address] | K/uL | LABORATORY | | | | [address], | | | | | | [place] [address] | | | | + + + + + + + + | Specimen | + + | Blood | + + + + + + + | Performing | Address | City/State/Zipcode | Phone Number | | Organization | | | | + + + + + | [facility] | [address] | [place] [address] | [phone] | + + + + + POC Glucose (08/11/2019 8:52 PM PST) + + + + + + | Component | Value | Ref Range | Performed | Pathologist | | | | | At | Signature | + + + + + + | Glucose, | 133 (H)Comment: Testing | 65 - 99 mg/dL | [facility] | | | POC | performed at [facility] | | LABORATORY | | | | [address];[place], [place] | | | | | | [address] | | | | + + + + + + + + | Specimen | + + | | + + + + + + + | Performing | Address | City/State/Zipcode | Phone Number | | Organization | | | | + + + + + | [facility] | [address] | [place] [address] | [phone] | + + + + + Lipid Panel (08/11/2019 12:08 PM PST) + + + + + + | Component | Value | Ref Range | Performed | Pathologist | | | | | At | Signature | + + + + + + | Cholesterol | 156 | <200 mg/dL | [facility] | | | | | | LABORATORY | | + + + + + + | Triglycerid | 123 | <150 mg/dL | [facility] | | | es | | | LABORATORY | | + + + + + + | HDL | 38 (L) | >40 mg/dL | [facility] | | | | | | LABORATORY | | + + + + + + | LDL, | 93Comment: Testing | <100 mg/dL | [facility] | | | Calculated | performed at [facility], [address] | | LABORATORY | | | | [address], | | | | | | [place] [address] | | | | + + + + + + + + | Specimen | + + | Blood | + + + + + + + | Performing | Address | City/State/Zipcode | Phone Number | | Organization | | | | + + + + + | [facility] | [address] | [place] [address] | [phone] | + + + + + CT Angiogram Head Neck w Contrast (08/11/2019 7:06 AM PST) + + | Specimen | + + | | + + + + + | Impressions | Performed At | + + + | 1. No intracranial hemorrhage or CT evidence of acute infarct. 2. 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 The | | | right cervical vertebral artery is small along its entire course. | | | There is occlusion within the proximal intradural right vertebral | | | artery which is unchanged compared to the previous MRI on 05/16/2019. | | | 3. The left vertebral artery is widely patent. The loss of T2 flow | | | void on the previous MRI most likely represents artifact from slow | | | flow or volume averaging. 4. 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 | | | Signed by: Jay Jay Pandey, Amrit Sign Date/Time: 08/11/2019 7:40 AM | | + + + + + + | Narrative | Performed At | + + + | CT ANGIOGRAM OF THE HEAD WITHOUT AND WITH CONTRAST; CT ANGIOGRAM | [facility] | | OF THE NECK WITH CONTRAST CLINICAL INFORMATION: Ataxia. | | | COMPARISON: MRI brain 08/11/2019. PROCEDURE: CT Head: Axial | | | images were obtained through the brain IV without contrast. CT | | | Angiogram Head: Thin section axial images were obtained through the | | | brain during the arterial phase after IV administration. CT | | | Angiogram Neck: Thin section axial images were obtained through the | | | neck during the arterial phase after IV administration. NASCET | | | criteria applied for internal carotid stenosis determination. 3D | | | and multiplanar reconstructions were obtained from the acquisition | | | data. Contrast: 100 ml Omnipaque 350 IV. At least one of the | | | following CT dose optimization techniques were used: Automated | | | exposure control; Adjustment of mA and/or kV according to patient | | | size; Use of iterative reconstruction technique. FINDINGS: CT | | | Head: Brain: Focus of hypoattenuation within the right melissa radiata | | | consistent with previous infarct. No intracranial hemorrhage. No | | | intracranial mass or mass effect. No evidence for infarct. | | | Periventricular and subcortical foci of decreased white matter | | | attenuation are nonspecific finding but likely related to chronic | | | microvascular ischemic disease. Ventricles and extra-axial fluid | | | spaces: Normal. Paranasal sinuses and mastoid air cells: Normal. | | | Calvarium and extracranial soft tissues: Normal. Orbits: Imaged | | | portions of the orbits are normal. CTA Head: Intracranial | | | Segments of the Internal Carotid Arteries: Scattered calcified | | | atheromatous changes involving the bilateral cavernous ICA result in | | | mild stenosis of the bilateral distal cavernous ICAs. Middle | | | Cerebral Arteries: Normal contrast enhancement without evidence of | | | occlusion, intraluminal thrombus, significant stenosis, or aneurysm. | | | Anterior Cerebral Arteries: Normal contrast enhancement without | | | evidence of occlusion, intraluminal thrombus, significant stenosis, or | | | aneurysm. Posterior Circulation: There is occlusion of the right | | | intradural vertebral artery which was likely present on the previous | | | MRI on 05/16/2019. The left vertebral artery is normal in caliber. | | | The loss of T2 flow void on the previous MRI most likely represents | | | a slow flow. The basilar artery is normal in caliber. The inferior | | | and superior cerebellar arteries are normal in caliber. The | | | bilateral process owner are normal in caliber. CTA Neck: Aortic Arch: | | | Conventional anatomy. Brachiocephalic artery demonstrate normal | | | contrast enhancement without evidence of occlusion, intraluminal | | | thrombus, or significant stenosis. Fibrofatty atheromatous changes | | | at the origin of the right subclavian artery without significant | | | stenosis. Fibrofatty atheromatous changes involving the proximal left | | | subclavian artery results in mild stenosis. Right Carotid | | | Artery: Carotid origin, common carotid artery, carotid bifurcation, | | | external carotid artery, and cervical segments of the internal | | | carotid artery demonstrate normal contrast enhancement without | | | evidence of occlusion, intraluminal thrombus, dissection, or | | | significant stenosis. 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 | | | Fibrofatty atheromatous changes within the left common carotid | | | artery result in approximately 40% stenosis. Vertebral Arteries: | | | Atheromatous changes at the origin the right vertebral artery result | | | in severe stenosis. The left vertebral artery is dominant and the | | | right vertebral artery is small along its entire course. No | | | stenosis of the left vertebral artery. Other: Visualized lung | | | apices are clear. No cervical adenopathy. | | + + + + + | Procedure Note | + + | Frantz, Rad Results In - 08/11/2019 7:43 AM PST | | CT ANGIOGRAM OF THE HEAD WITHOUT AND WITH CONTRAST; CT ANGIOGRAM OF THE | | NECK WITH CONTRAST | | | | CLINICAL INFORMATION: | | Ataxia. | | | | COMPARISON: | | MRI brain 08/11/2019. | | | | PROCEDURE: | | [...] | data. | | | | Contrast: 100 ml Omnipaque 350 IV. | | | | At least one of the following CT dose optimization techniques were | | used: Automated exposure control; Adjustment of mA and/or kV according | | to patient size; Use of iterative reconstruction technique. | | | | FINDINGS: | | CT Head: | | Brain: Focus of hypoattenuation within the right melissa radiata | | consistent with previous infarct. No intracranial hemorrhage. No | | intracranial mass or mass effect. No evidence for infarct. | | Periventricular and subcortical foci of decreased white matter | | attenuation are nonspecific finding but likely related to chronic | | microvascular ischemic disease. | | | | Ventricles and extra-axial fluid spaces: Normal. | | | | Paranasal sinuses and mastoid air cells: Normal. | | | | Calvarium and extracranial soft tissues: Normal. | | | | Orbits: Imaged portions of the orbits are normal. | | | | | | CTA Head: | | Intracranial Segments of the Internal Carotid Arteries: Scattered | | calcified atheromatous changes involving the bilateral cavernous ICA | | result in mild stenosis of the bilateral distal cavernous ICAs. | | | | Middle Cerebral Arteries: Normal contrast enhancement without evidence | | of occlusion, intraluminal thrombus, significant stenosis, or aneurysm. | | | | Anterior Cerebral Arteries: Normal contrast enhancement without | | evidence of occlusion, intraluminal thrombus, significant stenosis, or | | aneurysm. | | | | Posterior Circulation: There is occlusion of the right intradural | | vertebral artery which was likely present on the previous MRI on | | 05/16/2019. The left vertebral artery is normal in caliber. The loss | | of T2 flow void on the previous MRI most likely represents a slow flow. | | The basilar artery is normal in caliber. The inferior and superior | | cerebellar arteries are normal in caliber. The bilateral process owner are | | normal in caliber. | | | | | | CTA Neck: | | Aortic Arch: Conventional anatomy. Brachiocephalic artery demonstrate | | normal contrast enhancement without evidence of occlusion, intraluminal | | thrombus, or significant stenosis. Fibrofatty atheromatous changes at | | the origin of the right subclavian artery without significant stenosis. | | Fibrofatty atheromatous changes involving the proximal left subclavian | | artery results in mild stenosis. | | | | Right Carotid Artery: Carotid origin, common carotid artery, carotid | | bifurcation, external carotid artery, and cervical segments of the | | internal carotid artery demonstrate normal contrast enhancement without | | evidence of occlusion, intraluminal thrombus, dissection, or | | significant stenosis. 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 Fibrofatty atheromatous changes within | | the left common carotid artery result in approximately 40% stenosis. | | | | Vertebral Arteries: Atheromatous changes at the origin the right | | vertebral artery result in severe stenosis. The left vertebral artery | | is dominant and the right vertebral artery is small along its entire | | course. No stenosis of the left vertebral artery. | | | | Other: Visualized lung apices are clear. No cervical adenopathy. | | | | IMPRESSION: | | 1. No intracranial hemorrhage or CT evidence of acute infarct. | | 2. 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 The | | right cervical vertebral artery is small along its entire course. | | There is occlusion within the proximal intradural right vertebral | | artery which is unchanged compared to the previous MRI on 05/16/2019. | | 3. The left vertebral artery is widely patent. The loss of T2 flow | | void on the previous MRI most likely represents artifact from slow flow | | or volume averaging. | | 4. 9 mm focal outpouching at the left proximal ICA most likely | | represents a pseudoaneurysm versus postsurgical changes from a previous | | endarterectomy. | | | | | | | | | | Signed by: Jay Jay Pandey Jace | | Sign Date/Time: 08/11/2019 7:40 AM | + + + +---------+ + + | Performing | Address | City/State/Zipcode | Phone Number | | Organization | | | | + +---------+ + + | [facility] | | | | + +---------+ + + MRI Brain wo Contrast (08/11/2019 6:07 AM PST) + + | Specimen | + + | | + + + + + | Impressions | Performed At | + + + | 1. No evidence for acute infarct. No evidence for intracranial | [facility] | | hemorrhage. 2. New loss of T2 signal flow void within the intradural | | | left vertebral artery which could represent slow flow from stenosis | | | or occlusion. 3. Unchanged loss of the T1 and T2 signal flow voids | | | within the intradural right vertebral artery compared to the previous | | | MRI. Signed by: Jay Jay Pandey, Amrit Sign Date/Time: | | | 08/11/2019 6:24 AM | | + + + + + + | Narrative | Performed At | + + + | MRI BRAIN WITHOUT CONTRAST CLINICAL INFORMATION: Ataxia and | [facility] | | dizziness. COMPARISON: MRI brain [id number]. CT head 08/11/2019 | | | PROCEDURE: Sagittal T1, axial FLAIR, axial T2, axial T1, axial | | | gradient susceptibility, coronal T2, axial DWI. FINDINGS: Brain: | | | Encephalomalacia within the right melissa radiata consistent with a | | | old infarct. No evidence of acute infarct. No intracranial | | | hemorrhage. No intracranial mass or mass effect. Scattered | | | periventricular and subcortical foci of T2 signal alteration are | | | nonspecific finding but commonly associated with chronic microvascular | | | ischemic changes. Ventricles and extra-axial fluid spaces: | | | Ventricles are normal in size and configuration. No extra-axial | | | fluid collection. Sella, suprasellar cistern, and orbits: Normal. | | | Major vascular flow voids: There is loss of the T2 flow void | | | within the intradural left vertebral artery and proximal intradural | | | right vertebral artery. The loss of flow void within the intradural | | | right vertebral artery appears to be unchanged compared to the | | | previous MRI on 05/16/2019. Calvarium and extracranial soft | | | tissues: Normal. Paranasal sinuses and mastoid air cells: Mild | | | mucosal thickening within the maxillary sinuses and ethmoid air | | | cells. Mastoid air cells are clear. | | + + + + + | Procedure Note | + + | Frantz, Rad Results In - 08/11/2019 6:28 AM PST | | MRI BRAIN WITHOUT CONTRAST | | | | CLINICAL INFORMATION: | | Ataxia and dizziness. | | | | COMPARISON: | | MRI brain [id number]. CT head 08/11/2019 | | | | PROCEDURE: | | Sagittal T1, axial FLAIR, axial T2, axial T1, axial gradient | | susceptibility, coronal T2, axial DWI. | | | | FINDINGS: | | Brain: Encephalomalacia within the right melissa radiata consistent with | | a old infarct. No evidence of acute infarct. No intracranial | | hemorrhage. No intracranial mass or mass effect. Scattered | | periventricular and subcortical foci of T2 signal alteration are | | nonspecific finding but commonly associated with chronic microvascular | | ischemic changes. | | | | Ventricles and extra-axial fluid spaces: Ventricles are normal in size | | and configuration. No extra-axial fluid collection. | | | | Sella, suprasellar cistern, and orbits: Normal. | | | | Major vascular flow voids: There is loss of the T2 flow void within the | | intradural left vertebral artery and proximal intradural right | | vertebral artery. The loss of flow void within the intradural right | | vertebral artery appears to be unchanged compared to the previous MRI | | on 05/16/2019. | | | | Calvarium and extracranial soft tissues: Normal. | | | | Paranasal sinuses and mastoid air cells: Mild mucosal thickening within | | the maxillary sinuses and ethmoid air cells. Mastoid air cells are | | clear. | | | | IMPRESSION: | | 1. No evidence for acute infarct. No evidence for intracranial | | hemorrhage. | | 2. New loss of T2 signal flow void within the intradural left vertebral | | artery which could represent slow flow from stenosis or occlusion. | | 3. Unchanged loss of the T1 and T2 signal flow voids within the | | intradural right vertebral artery compared to the previous MRI. | | | | | | | | Signed by: Jay Jay Pandey Jace | | Sign Date/Time: 08/11/2019 6:24 AM | + + + +---------+ + + | Performing | Address | City/State/Zipcode | Phone Number | | Organization | | | | + +---------+ + + | [facility] | | | | + +---------+ + + ECG 12 lead (08/11/2019 5:20 AM PST) + + + + + + | Component | Value | Ref Range | Performed | Pathologist | | | | | At | Signature | + + + + + + | VENTRICULAR | 63 | BPM | [facility] | | | RATE EKG | | | | | + + + + + + | ATRIAL RATE | 63 | BPM | [facility] | | [...] + + + + | Q-T | 411 | ms | [facility] | | | INTERVAL | | | | | | (CORRECTED) | | | | | + + + + + + | P WAVE AXIS | 9 | degrees | [facility] | | + + + + + + | QRS AXIS | -11 | degrees | [facility] | | + + + + + + | T AXIS | 27 | degrees | [facility] | | [...] of | | | | | | 11-AUG-2019 02:41,No | | | | | | significant [...] | | | | | ONLY, -COMPUTER ([id number]), | | | | | | sports editor EVERARDO OSORIO | | | | | | ([id number]) on 08/12/2019 | | | | | | 3:07:19 AM | | | | + + [...] | | | + +---------+ + + B Type Natriuretic Peptide (08/11/2019 2:53 AM PST) + + + + + + | Component | Value | Ref Range | Performed | Pathologist | | | | | At | Signature | + + + + + + | BNP | 122.18 (H)Comment: | 0 - 100 pg/mL | [facility] | | | | Testing performed at | | LABORATORY | | | | [address] | | | | | | [place] [address] | | | | + + + + + + + + | Specimen | + + | Blood | + + + + + + + | Performing | Address | City/State/Zipcode | Phone Number | | Organization | | | | + + + + + | [facility] | [address] | [place] [address] | [phone] | + + + + + Digoxin Level (08/11/2019 2:52 AM PST) + + + + + + | Component | Value | Ref Range | Performed | Pathologist | | | | | At | Signature | + + + + + + | Date of | | | [facility] | | | Last Dose | | | LABORATORY | | + + + + + + | Time of | | | [facility] | | | Last Dose | | | LABORATORY | | + + + + + + | Digoxin | 0.6 (L)Comment: Testing | 0.90 - 2.00 | [facility] | | | level | performed at [facility] | ng/mL | LABORATORY | | | | [address];[place], [place] | | | | | | [address] | | | | + + + + + + + + | Specimen | + + | | + + + + + + + | Performing | Address | City/State/Zipcode | Phone Number | | Organization | | | | + + + + + | [facility] | [address] | [place] [address] | [phone] | + + + + + Magnesium (08/11/2019 2:52 AM PST) + + + + + + | Component | Value | Ref Range | Performed | Pathologist | | | | | At | Signature | + + + + + + | Magnesium | 1.9Comment: Testing | 1.7 - 2.4 mg/dL | [facility] | | | | performed at [facility] | LABORATORY | | | [address];[place] | | | | | | [address] | | | | + + + + + + + + | Specimen | + + | Blood | + + + + + + + | Performing | Address | City/State/Zipcode | Phone Number | | Organization | | | | + + + + + | [facility] | [address] | [place] [address] | [phone] | + + + + + Troponin I (08/11/2019 2:52 AM PST) + + + + + + | Component | Value | Ref Range | Performed | Pathologist | | | | | At | Signature | + + + + + + | Troponin I | 0.028Comment: 0.04 | 0.00 - 0.04 | [facility] | | | | ng/mL or [...] at | | | | | | [facility];[address] [facility] | | | | | | [address];[place] [address] | | | | + + + + + + + + | Specimen | + + | Blood | + + + + + + + | Performing | Address | City/State/Zipcode | Phone Number | | Organization | | | | + + + + + | [facility] | [address] | [place] [address] | [phone] | + + + + + PTT (08/11/2019 2:52 AM PST) + + + + + + | Component | Value | Ref Range | Performed | Pathologist | | | | | At | Signature | + + + + + + | PTT | 28Comment: Testing | 23 - 32 seconds | [facility] | | | | performed at [facility];[address] | | LABORATORY | | | | [address];[place] | | | | | | [address] | | | | + + + + + + + + | Specimen | + + | Blood | + + + + + + + | Performing | Address | City/State/Zipcode | Phone Number | | Organization | | | | + + + + + | [facility] | [address] | [place] [address] | [phone] | + + + + + Protime INR (08/11/2019 2:52 AM PST) + + + + + + | Component | Value | Ref Range | Performed | Pathologist | | | | | At | Signature | + + + + + + | INR | 1.1Comment: REFERENCE | | [facility] | | | | RANGE:0.9 - 1.2 | | LABORATORY | | | | NON-ANTICOAGULATED2.0 | | | | | | - 3.0 ALL OTHER | | | | | | THERAPEUTIC | | | | | | INDICATIONS2.5 - 3.5 | | | | | | MECHANICAL HEART VALVES, | | | | | | RECURRENT OR SYSTEMIC | | | | | | EMBOLISMTesting | | | | | | performed at [facility] | | | | | | [address];[place], [place] | | | | | | [address] | | | | + + + + + + + + | Specimen | + + | Blood | + + + + + + + | Performing | Address | City/State/Zipcode | Phone Number | | Organization | | | | + + + + + | [facility] | [address] | [place] [address] | [phone] | + + + + + Lipase (08/11/2019 2:52 AM PST) + + + + + + | Component | Value | Ref Range | Performed | Pathologist | | | | | At | Signature | + + + + + + | Lipase | 34Comment: Testing | 12 - 53 U/L | [facility] | | | | performed at [facility];[address] | | LABORATORY | | | | [address];[place] | | | | | | [address] | | | | + + + + + + + + | Specimen | + + | Blood | + + + + + + + | Performing | Address | City/State/Zipcode | Phone Number | | Organization | | | | + + + + + | [facility] | [address] | [place] [address] | [phone] | + + + + + Comprehensive Metabolic Panel (08/11/2019 2:52 AM PST) + + + + + + | Component | Value | Ref Range | Performed | Pathologist | | | | | At | Signature | + + + + + + | Na | 144 | 135 - 145 | [facility] | | | | | mmol/L | LABORATORY | | + + + + + + | K | 4.4 | 3.5 - 4.9 | [facility] | | | | | mmol/L | LABORATORY | | + + + + + + | Cl | 111 (H) | 99 - 109 mmol/L | [facility] | | | | | | LABORATORY | | + + + + + + | CO2 | 27 | 23 - 32 mmol/L | [facility] | | | | | | LABORATORY | | + + + + + + | Anion Gap | 10 | 5 - 20 mmol/L | [facility] | | | | | | LABORATORY | | + + + + + + | Glucose | 118 (H) | 65 - 99 mg/dL | [facility] | | | | | | LABORATORY | | + + + + + + | BUN | 11 | 8 - 25 mg/dL | [facility] | | | | | | LABORATORY | | + + + + + + | Creatinine | 1.18 | 0.70 - 1.30 | [facility] | | | | | mg/dL | LABORATORY | | + + + + + + | BUN/Creatin | 9 | | [facility] | | | ine Ratio | | | LABORATORY | | + + + + + + | Calcium | 9.3 | 8.5 - 10.5 | [facility] | | | | | mg/dL | LABORATORY | | + + + + + + | Protein, | 6.0 (L) | 6.3 - 8.2 g/dL | [facility] | | | Total | | | LABORATORY | | + + + + + + | Albumin | 3.9 | 3.3 - 4.8 g/dL | [facility] [...] + + + + | BILIRUBIN, | 0.7 | 0.1 - 1.5 mg/dL | [facility] | | | TOTAL | | | LABORATORY | | + + + + + + | ALK PHOS | 85 | 35 - 115 U/L | [facility] | | | | | | LABORATORY | | + + + + + + | AST | 17 | 10 - 45 U/L | [facility] | | | | | | LABORATORY | | + + + + + + | ALT | 8 (L) | 10 - 65 U/L | [facility] | | | | | | LABORATORY | | + + + + + + | Estimated | 60 (L)Comment: GFR <60: | >60 | [facility] | | | GFR | CHRONIC [...] | | | | | performed at [facility] | | | | | | [facility];[place], [place] | | | | | | [address] | | | | + + + + + + + + | Specimen | + + | Blood | + + + + + + + | Performing | Address | City/State/Zipcode | Phone Number | | Organization | | | | + + + + + | [facility] | [address] | [place] [address] | [phone] | + + + + + CBC with Differential (08/11/2019 2:52 AM PST) + + + + + + | Component | Value | Ref Range | Performed | Pathologist | | | | | At | Signature | + + + + + + | WBC | 4.90 | 3.80 - 11.00 | [facility] | | | | | K/uL | LABORATORY | | + + + + + + | Red Blood | 4.82 | 4.20 - 5.70 | [facility] | | | Cells | | M/uL | LABORATORY | | + + + + + + | Hemoglobin | 14.3 | 13.2 - 17.0 | [facility] | | | | | g/dL | LABORATORY | | + + + + + + | Hematocrit | 42.3 | 39.0 - 50.0 % | [facility] | | | | | | LABORATORY | | + + + + + + | MCV | 87.8 | 80.0 - 100.0 fl | [facility] | | | | | | LABORATORY | | + + + + + + | MCH | 29.7 | 27.0 - 34.0 pg | [facility] | | | | | | LABORATORY | | + + + + + + | MCHC | 33.9 | 32.0 - 35.5 | [facility] | | | | | g/dL | LABORATORY | | + + + + + + | RDW-SD | 47.7 | 37 - 53 fl | [facility] | | | | | | LABORATORY | | + + + + + + | Platelet | 183 | 150 - 400 K/uL | [facility] | | | Count | | | LABORATORY | | + + + + + + | MPV | 8.9 | fl | [facility] | | | | | | LABORATORY | | + + + + + + | Diff Type | AUTOMATED | | [facility] | | | | | | LABORATORY | | + + + + + + | % | 66.01 | % | [facility] | | | Neutrophils | | | LABORATORY | | + + + + + + | % | 11.58 | % | [facility] | | | Lymphocytes | | | LABORATORY | | + + + + + + | Monocyte % | 13.68 | % | [facility] | | | | | | LABORATORY | | + + + + + + | Eosinophils | 7.60 | % | [facility] | | | % | | | LABORATORY | | + + + + + + | Basophils % | 1.13 | % | [facility] | | | | | | LABORATORY | | + + + + + + | Neutrophils | 3.23 | 1.90 - 7.40 | [facility] | | | , Absolute | | K/uL | LABORATORY | | + + + + + + | Absolute | 0.57 (L) | 1.00 - 3.90 | [facility] | | | Lymphocytes | | K/uL | LABORATORY | | + + + + + + | Absolute | 0.67 | 0.00 - 0.80 | [facility] | | | Monocytes | | K/uL | LABORATORY | | + + + + + + | Eosinophils | 0.37 | 0.00 - 0.50 | [facility] | | | , Absolute | | K/uL | LABORATORY | | + + + + + + | Basophils, | 0.06Comment: Testing | 0.00 - 0.10 | [facility] | | | Absolute | performed at [facility];[address] | K/uL | LABORATORY | | | | [facility];[place], [place] | | | | | | [address] | | | | + + + + + + + + | Specimen | + + | Blood | + + + + + + + | Performing | Address | City/State/Zipcode | Phone Number | | Organization | | | | + + + + + | [facility] | [address] | [place] [address] | [phone] | + + + + + ECG 12 lead (08/11/2019 2:41 AM PST) + + + + + + | Component | Value | Ref Range | Performed | Pathologist | | | | | At | Signature | + + + + + + | VENTRICULAR | 58 | BPM | [facility] | | | RATE EKG | | | | | + + + + + + | ATRIAL RATE | 58 | BPM | [facility] | | + + + + + + | P-R | 256 | ms | [facility] | | | INTERVAL | | | | | + + + + + + | QRS | 110 | ms | [facility] | | | DURATION | | | | | + + + + + + | Q-T | 404 | ms | [facility] | | | INTERVAL | | | | | + + + + + + | Q-T | 396 | ms | [facility] | | | INTERVAL | | | | | | (CORRECTED) | | | | | + + + + + + | P WAVE AXIS | 6 | degrees | [facility] | | + + + + + + | QRS AXIS | -8 | degrees | [facility] | | + + + + + + | T AXIS | 35 | degrees | [facility] | | + + + + + + | INTERPRETAT | Sinus bradycardia with | | [facility] | | | ION TEXT | 1st degree A-V | | | | | | blockIncomplete right | | | | | | bundle branch blockST | | | | | | elevation consider | | | | | | anterior injury or acute | | | | | | infarct ACUTE MO / | | | | | | STEMI Abnormal | | | | | | ECGWhen compared with | | | | | | ECG of 31-JUL-2019 | | | | | | 15:07,Previous ECG has | | | | | | undetermined rhythm, | | | | | | needs reviewMinimal | | | | | | criteria for Anterior | | | | | | infarct are no longer | | | | | | PresentThis ECG contains | | | | | | Unconfirmed | | | | | | Interpretation | | | | | | Statements. See ED | | | | | | Record for Physician | | | | | | Interpretation. | | | | | | Confirmed by MUSE READ | | | | | | ONLY, -COMPUTER ([id number]), | | | | | | sports editor Long Gonsalves | | | | | | ([id number]) on 08/11/2019 | | | | | | 4:50:16 AM | | | | + + [...] | | + +---------+ + + CT Head wo Contrast (08/11/2019 2:41 AM PST) + + | Specimen | + + | | + + + + + | Impressions | Performed At | + + + | 1. No acute intracranial findings. No evidence of mass effect, | [facility] | | acute hemorrhage or definite acute cortical infarct. 2. 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 Signed by: Lakshmi May, Justin Sign Date/Time: | | | 08/11/2019 2:46 AM | | + + + + + + | Narrative | Performed At | + + + | CT HEAD WITHOUT CONTRAST CLINICAL INFORMATION: Headache and | [facility] | | dizziness. COMPARISON: MRI BRAIN WO CONTRAST (05/16/2019); CT | | | ANGIOGRAM HEAD NECK ACUTE STROKE (05/16/2019); SINUS LIMITED WO | | | CONTRAST (07/13/2013); PROCEDURE: Axial images were obtained | | | through the head without IV contrast. Multiplanar reformations were | | | obtained from the acquisition data. At least one of the following | | | CT dose optimization techniques were used: Automated exposure | | | control; Adjustment of mA and/or kV according to patient size; Use of | | | iterative reconstruction technique. FINDINGS: Brain: No | | | intracranial hemorrhage, midline shift or pathologic mass effect. No | | | cerebral edema, mass lesion, or evidence of acute infarct. 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 Ventricles and extra-axial fluid spaces: Normal. | | | Paranasal sinuses and mastoid air cells: Normal. Calvarium and | | | extracranial soft tissues: Normal. Orbits: Imaged portions of the | | | orbits are normal. | | + + + + + | Procedure Note | + + | Frantz, Rad Results In - 08/11/2019 2:50 AM PST | | CT HEAD WITHOUT CONTRAST | | | | CLINICAL INFORMATION: | | Headache and dizziness. | | | | COMPARISON: | | MRI BRAIN WO CONTRAST (05/16/2019); CT ANGIOGRAM HEAD NECK ACUTE STROKE | | (05/16/2019); SINUS LIMITED WO CONTRAST (07/13/2013); | | | | PROCEDURE: | | Axial images were obtained through the head without IV contrast. | | Multiplanar reformations were obtained from the acquisition data. | | | | At least one of the following CT dose optimization techniques were | | used: Automated exposure control; Adjustment of mA and/or kV according | | to patient size; Use of iterative reconstruction technique. | | | | FINDINGS: | | Brain: No intracranial hemorrhage, midline shift or pathologic mass | | effect. No cerebral edema, mass lesion, or evidence of acute infarct. 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 | | | | Ventricles and extra-axial fluid spaces: Normal. | | | | Paranasal sinuses and mastoid air cells: Normal. | | | | Calvarium and extracranial soft tissues: Normal. | | | | Orbits: Imaged portions of the orbits are normal. | | | | IMPRESSION: | | 1. No acute intracranial findings. No evidence of mass effect, acute | | hemorrhage or definite acute cortical infarct. | | 2. Evolving infarct in the right centrum semiovale originally | | documented in April. | | | | | | | | | | Signed by: Lakshmi May Robin | | Sign Date/Time: 08/11/2019 2:46 AM | + + + +---------+ + + | Performing | Address | City/[facility] | Phone Number | | Organization | | | | + +---------+ + + | [facility] | | | | + +---------+ + + XR Chest AP Portable (08/11/2019 2:26 AM PST) + + | Specimen | + + | | + + + + + | Impressions | Performed At | + + + | No acute cardiopulmonary process. Signed by: Lakshmi May, | [facility] | | Justin Sign Date/Time: 08/11/2019 2:30 AM | | + + + + + + | Narrative | Performed At | + + + | CHEST PORTABLE ONE VIEW CLINICAL INFORMATION: Dizziness and | [facility] | | hypertension. COMPARISON: XR CHEST AP PORTABLE (05/30/2019); XR | | | CHEST AP PORTABLE (05/28/2019); CHEST W/O CONTRAST (07/13/2013); CT | | | ANGIOGRAM HEAD NECK ACUTE STROKE (05/16/2019); FINDINGS: | | | Cardiomediastinal contours are within normal limits. Postsurgical | | | changes of prior open heart surgery. Lungs are clear. No large | | | effusion. No visible pneumothorax. No acute bony abnormalities. | | | Surgical clips overlie both sides of the neck. | | + + + + + | Procedure Note | + + | Frantz, Rad Results In - 08/11/2019 2:34 AM PST | | CHEST PORTABLE ONE VIEW | | | | CLINICAL INFORMATION: | | Dizziness and hypertension. | | | | COMPARISON: | | XR CHEST AP PORTABLE (05/30/2019); XR CHEST AP PORTABLE (05/28/2019); CHEST | | W/O CONTRAST (07/13/2013); CT ANGIOGRAM HEAD NECK ACUTE STROKE | | (05/16/2019); | | | | FINDINGS: | | Cardiomediastinal contours are within normal limits. Postsurgical | | changes of prior open heart surgery. Lungs are clear. No large | | effusion. No visible pneumothorax. No acute bony abnormalities. | | Surgical clips overlie both sides of the neck. | | | | IMPRESSION: | | No acute cardiopulmonary process. | | | | | | | | Signed by: Lakshmi May Robin | | Sign Date/Time: 08/11/2019 2:30 AM | + + + +---------+ + + | Performing | Address | City/State[facility] | Phone Number | | Organization | | | | + +---------+ + + | [facility] | | | | + +---------+ + + documented in this encounter Visit Diagnoses + + | Diagnosis | + + | Dizziness - Primary Dizziness and giddiness | + + | Ataxia Lack of coordination | + + | Sinus bradycardia Other specified cardiac dysrhythmias | + + | Generalized weakness Other malaise and fatigue | + + | Ambulatory dysfunction | + + | Dyslipidemia Other and unspecified hyperlipidemia | + + | History of CVA in adulthood | + + | SVT (supraventricular tachycardia) (HCC) Other specified cardiac dysrhythmias | + + | Cough variant asthma | + + | Statin intolerance Other drug allergy | + + documented in this encounter [...] C (100.4 F), | | | Starting 08/11/19 at 1151 | | + +---+ | | | + +---+ | acetaminophen (TYLENOL) | | | suppository 650 mg 650 mg, | | | Rectal, EVERY 4 HOURS PRN, Pain, | | | Fever, temperature > or equal to | | | 38.0 C (100.4 F), Starting Sat | | | 08/11/19 at 1151, If unable to | | | take oral., | | + +---+ | | | + +---+ | acetaminophen (TYLENOL) tablet | | | 650 mg 650 mg, Oral, EVERY 4 | | | HOURS PRN, Pain, Fever, | | | temperature > or equal to 38.0 C | | | (100.4 F), Starting 08/11/19 | | | at 1151 | | + +---+ | | | + +---+ + +-------+ +--------+---+---+ | aspirin chewable tablet 324 mg | Given | 08/11/20 | 324 mg | | | | 324 mg, Oral, ONCE, 08/11/19 | | 19 1:42 | | | | | at 1300, For 1 dose | | PM PST | | | | + +-------+ +--------+---+---+ +---+---+ | | | +---+---+ + +-------+ +-------+---+---+ | aspirin EC tablet 81 mg 81 mg, | Given | 08/12/20 | 81 mg | | | | Oral, DAILY, First dose on Sun | | 19 9:30 | | | | | 08/12/19 at 0900 | | AM PST | | | | + +-------+ +-------+---+---+ +---+---+ | | | +---+---+ + +-------+ +-------+---+---+ | clopidogrel (PLAVIX) tablet 75 | Given | 08/12/20 | 75 mg | | | | mg 75 mg, Oral, DAILY, First | | 19 9:29 | | | | | dose on 08/11/19 at 1230 | | AM PST | | | | + +-------+ +-------+---+---+ +-------+ +-------+---+---+ | Given | 08/11/20 | 75 mg | | | | | 19 1:44 | | | | | | PM PST | | | | +-------+ +-------+---+---+ +---+---+ | | | +---+---+ + +-------+ +---------+---+---+ | digoxin (LANOXIN) tablet 125 | Given | 08/12/20 | 125 mcg | | | | mcg 125 mcg, Oral, DAILY, First | | 19 9:30 | | | | | dose on 08/11/19 at 1230 | | AM PST | | | | + +-------+ +---------+---+---+ +-------+ +---------+---+---+ | Given | 08/11/20 | 125 mcg | | | | | 19 1:48 | | | | | | PM PST | | | | +-------+ +---------+---+---+ +---+---+ | | | +---+---+ + +-------+ +-------+---+ + | enoxaparin (LOVENOX) 40 mg/0.4 | Given | 08/11/20 | 40 mg | | Abdomen- | | mL injection 40 mg 40 mg, | | 19 3:58 | | | RLQ | | Subcutaneous, EVERY 24 HOURS | | PM PST | | | | | (Daily), First dose on Sat | | | | | | | 08/11/19 at 1500 | | | | | | + +-------+ +-------+---+ + +---+---+ | | | +---+---+ + +-------+ +---------+---+ + | fluticasone (FLONASE) 50 | Given | 08/12/20 | 1 spray | | Nare-Bot | | mcg/nasal spray 1 spray 1 spray, | | 19 9:30 | | | h | | Nasal, DAILY, First dose on Sun | | AM PST | | | | | 08/12/19 at 0900, Shake gently., | | | | | | + +-------+ +---------+---+ + +---+---+ | | | +---+---+ + +-------+ +---------+---+---+ | iohexol (OMNIPAQUE 350) 350 | Given | 08/11/20 | 100 mLs | | | | mg/mL injection 100 mL 100 mL, | | 19 6:39 | | | | | Intravenous, ONCE PRN, Other, | | AM PST | | | | | Starting 08/11/19 at 0639, | | | | | | | For 1 dose, Cat Scanner | | | | | | + +-------+ +---------+---+---+ +---+---+ | | | +---+---+ + +-------+ +-------+---+---+ | losartan (COZAAR) tablet 50 mg | Given | 08/11/20 | 50 mg | | | | 50 mg, Oral, NIGHTLY, First dose | | 19 9:23 | | | | | on 08/11/19 at 2100 | | PM PST | | | | + +-------+ +-------+---+---+ +---+---+ | | | +---+---+ + +-------+ +-------+---+---+ | metoprolol succinate | Given | 08/12/20 | 50 mg | | | | (TOPROL-XL) ER tablet 50 mg 50 | | 19 9:29 | | | | | mg, Oral, DAILY, First dose on | | AM PST | | | | | 08/11/19 at 1230, Tablet may | | | | | | | be cut where scored but do not | | | | | | | crush., | | | | | | + +-------+ +-------+---+---+ +-------+ +-------+---+---+ | Given | 16/20 | 50 mg | | | | | 19 1:42 | | | | | | PM PST | | | | +-------+ +-------+---+---+ +---+---+ | | | +---+---+ documented in this encounter
--- OUTSIDE RECORDS SUMMARY | ~2020-05-18 | XMS | Encounter Summary ---
Demographics + + + | Address | [address] | | | [place] [address] | + + + | Home Phone | | + + + | Preferred Language | Unknown | + + + | Marital Status | | + + + | Gnosticist Affiliation | 1041 | + + + | Race | White | + + + | Ethnic Group | Not or | + + + Author + + + | Author | [facility] | | | and [place] | + + + | Organization | [facility] | | | and [place] | + + + | Address | Unknown | + + + | Phone | Unavailable | + + + Support + + + + + | Name | Relationship | Address | Phone | + + + + + | Tera Mccarthy | ECON | [place], [place] | | | | | [address] | | + + + + + | Alicia Mccarthy | ECON | [address] | | | | | [place] [address] | | + + + + + Care Team Providers + +------+ + | Care Spin Table Operator Name | Role | Phone | + +------+ + | Matias Muñoz MD | PCP | | + +------+ + Encounter Details +--------+ + + + + | Date | Type | Department | Care Team | Description | +--------+ + + + + | 04/03/ | Hospital | [facility] | Lio Mendez, | Chronic cough | | 2013 | Encounter | MED CTR XRAY [address] | MD [address] | | | | | [place] | [place], [place] | | | | | [place] [address] | [address] | | | | | [phone] | | | +--------+ + + + [...] + + + +---------+ + + | mometasone | 2 sprays by Nasal | 15 g | 4 | 04/03/20 | | | (NASONEX) 50 | route every evening. | | | 13 | 3 | | mcg/nasal | | | | | | | sprayIndications: | | | | | | | Allergic rhinitis | | | | | | + [...] [address] | | | | | | [place] [address] | | | | | | [phone] | | | | | | | | +--------+---------+ + + + documented as of this encounter Procedures + +--------+ + + + | Procedure Name | Priori | Date/Time | Associated Diagnosis | Comments | | | ty | | | | + +--------+ + + + | XR CHEST PA AND | Routin | 04/03/2013 | Chronic cough | Results for this | | LATERAL | e | 2:19 PM | | procedure are in the | | | | PDT | | results section. | + +--------+ + + + documented in this encounter Results XR Chest PA and Lateral (04/03/2013 2:19 PM PDT) + + | Specimen | + + | | + + + + + | Narrative | Performed At | + + + | [facility] | [place] | | Department [address] [facility] [place] | [facility] | | [ rep ct [address]] [ rep ct [facility] | | st zip] Signed | - IMAGING | | | | | Patient Name: SIMON MCCARTHY Physician: | | | ALBERTO. : 1940 Age: 73 Sex: M Unit #: [id number] | | | Exam Date: 04/03/13 [place] [facility] [place] | | Report #: [id number] Page: | | | %(RAD)RES..mtdd.print.filter("pg") of %(RAD) | | | RES..mtdd.print.filter("tpg") | | | | | | Accession Number: [id number] | | | CHEST PA AND LATERAL CLINICAL HISTORY: CHRONIC COUGH. | | | COMPARISON: None. FINDINGS: Frontal and | | | lateral views of the chest. Symmetric aeration of the lungs. The lungs | | | are clear. No pleural effusion. No pneumothorax. Median sternotomy | | | had been performed. There is a radiopaque density projecting over | | | the left chest on the frontal view. This is not clearly identified | | | on the lateral view suggesting it is in the anterior soft tissues. | | | Cardiac and mediastinal contours are not enlarged. Osseous | | | structures are unremarkable. IMPRESSION: 1. | | | NEGATIVE TWO VIEW CHEST RADIOGRAPHS. Dictated Date/Time: | | | 04/03/2013 14:19 Transcribed Date/Time: 04/03/2013 16:39 | | | Presales Senior Specialist: <<Signature on File>> | | | | | | Duane Méndez MD04/03/13 [id number] <Electronically signed by Duane Zaidi | | | Dev MELENDEZ> Duane Méndez MD 04/03/13 0629 | | | Presales Senior Specialist: Epuramat [id number]/09/13 [id number] | | | Lio Mendez MD | | + + + + + + + + | Performing | Address | City/[facility] | Phone Number | | Organization | | | | + + + + + | [facility] | [address] | [place] | [phone] | | [facility] | | [address] | | | - IMAGING | | | | + + + + + documented in this encounter Visit Diagnoses + + | Diagnosis | + + | Chronic cough Cough | + + documented in this encounter
--- OUTSIDE RECORDS SUMMARY | ~2020-05-18 | XMS | Encounter Summary ---
Demographics + + + | Address | [address] | | | [place] [address] | + + + | Home Phone | | + + + | Preferred Language | Unknown | + + + | Marital Status | | + + + | Anglican Affiliation | 1041 | + + + | Race | White | + + + | Ethnic Group | Not or | + + + Author + + + | Author | [facility] | | | and [place] | + + + | Organization | [facility] | | | and [place] | + + + | Address | Unknown | + + + | Phone | Unavailable | + + + Support + + + + + | Name | Relationship | Address | Phone | + + + + + | Tera Mccarthy | ECON | [place], [place] | | | | | [address] | | + + + + + | Alicia Mccarthy | ECON | [address] | | | | | [place] [address] | | + + + + + Care Team Providers + +------+ + | Care Computer Forensic Examiner Name | Role | Phone | + +------+ + PCP | Unavailable | + +------+ + Encounter Details +--------+ + + + + | Date | Type | Department | Care Team | Description | +--------+ + + + + | 02/20/ | Hospital | [facility] | Jose Montgomery MD | | | 2009 | Encounter | [facility] | [address] | | | | | CLINICAL DECISION | [place] | | | | | [address] | [place], [place] | | | | | [place], [place] | [address] | | | | | [address] | [phone] | | | | | [phone] | | | +--------+ + + + [...] [address] | | | | | | [place] [address] | | | | | | [phone] | | | | | | | | +--------+---------+ + + + documented as of this encounter Visit Diagnoses Not on filedocumented in this encounter"
--- OUTSIDE RECORDS SUMMARY | ~2020-05-18 | XMS | Encounter Summary ---
Demographics + + + | Address | [address] | | | [place] [address] | + + + | Home Phone | | + + + | Preferred Language | Unknown | + + + | Marital Status | | + + + | Nondenominational Affiliation | 1041 | + + + | Race | White | + + + | Ethnic Group | Not or | + + + Author + + + | Author | [facility] | | | and [place] | + + + | Organization | [facility] | | | and [place] | + + + | Address | Unknown | + + + | Phone | Unavailable | + + + Support + + + + + | Name | Relationship | Address | Phone | + + + + + | Tera Mccarthy | ECON | [place], [place] | | | | | [address] | | + + + + + | Alicia Mccarthy | ECON | [address] | | | | | [place] [address] | | + + + + + Care Team Providers + +------+ + | Care Home Health Registered Nurse Name | Role | Phone | + +------+ + | Brittany Meehan MD | PCP | | + +------+ + Reason for Visit + +--------+ + | Reason | Onset | Comments | | | Date | | + +--------+ + | Follow-up | 05/24/ | | | | 2018 | | + +--------+ + Encounter Details +--------+ + + + + | Date | Type | Department | Care Team | Description | +--------+ + + + + | 05/24/ | Telephone | [facility] | Sammie Reese, | Follow-up | | 2019 | | NEUROLOGY [address] | | | | [address] | [facility] | | | | | [place], [place] | [place] [address] | | | | | [address] | [phone] | | | | | [phone] | | | +--------+ + + + [...] this encounter Miscellaneous Notes Telephone Encounter - Ciara Dias Supply Chain Procurement Manager - 05/24/2019 2:32 PM PDTL/M for Patient to inform him he is scheduled for a follow-up on Jun 25 10:45am with Dr. Reese.E lectronically signed by Ciara Dias Supply Chain Procurement Manager at 05/24/2019 2:34 PM PDTTelepho ne Encounter - Ciara Dias Supply Chain Procurement Manager - 05/24/2019 2:32 PM PDT----- Message fr haider Reese MD sent at 05/23/2019 16:38 PDT ----- Regarding: FW: Pt trying to follow up with you Please try to bring in 4 weeks. Jun 25? Thanks, Dr. Reese ----- Message ----- From: MICHAEL Krueger Sent: 05/23/2019 15:39 To: Sammie Reese MD Subject: Pt trying to follow up with you Elsy Busch, Just an FYI: I was seeing our mutual patient today whom you had seen recently in the hospital for acute stroke. He wanted to know that he has been trying for a week to get follow up with you, and no on e has called him back , so maybe someone could give him a call. he is anxious as you told him you wanted to see him back in 4 weeks. Thanks Poly Alvarez [facility] Cardiology docum ented in this encounter Plan of Treatment +--------+---------+ + + + | Date | Type | Specialty | Care Team | Description | +--------+---------+ + + + | 06/25/ | Office | Cardiology | Connie Alvarez | | | 2019 | Visit | | MIC[address] | | | | | | [address] [place] | | | | | | [place] [address] | | | | | | [phone] | | | | | | | | +--------+---------+ + + + documented as of this encounter Visit Diagnoses Not on filedocumented in this encounter"
--- OUTSIDE RECORDS SUMMARY | ~2020-05-18 | XMS | Encounter Summary ---
Demographics + + + | Address | [address] | | | [place] [address] | + + + | Home Phone | | + + + | Preferred Language | Unknown | + + + | Marital Status | | + + + | Tenriism Affiliation | 1041 | + + + | Race | White | + + + | Ethnic Group | Not or | + + + Author + + + | Author | [facility] | | | [...] [place], [place] | | | | | [address] | | + + + + + | Alicia Mccarthy | ECON | [address] | | | | | [place] [address] | | + + + + + Care Team Providers + +------+ + | Care Manager Strategy Name | Role | Phone | + +------+ + PCP | Unavailable | + +------+ + Encounter Details +--------+ + + + + | Date | Type | Department | Care Team | Description | +--------+ + + + + | 04/07/ | Hospital | [facility] | de Sonya, | Swelling, mass, or | | 2009 | Encounter | CONVERSION [address] | [address] | lump in head and | | | | [address] | [address] | neck | | | | [place], [place] | [place] [address] | | | | | [address] | [phone] | | | | | [phone] | | | +--------+ + + + [...] [address] | | | | | | [place] [address] | | | | | | [phone] | | | | | | | | +--------+---------+ + + + documented as of this encounter Procedures + +--------+ + + + | Procedure Name | Priori | Date/Time | Associated Diagnosis | Comments | | | ty | | | | + +--------+ + + + | VAS CAROTID DUPLEX | Routin | 04/07/2010 | | Results for this | | LIMITED | e | 12:39 PM | | procedure are in the | | | | PDT | | results section. | + +--------+ + + + documented in this encounter Results VAS Carotid Duplex Limited (04/07/2010 12:39 PM PDT) + + | Specimen | + + | | + + + + + | Narrative | Performed At | + + + | [facility] [id number] Ph: | | | Patient Name: ROBBIE MCCARTHY Date of : | | | 1940 Medical Record: [id number] Account: [id number] | | | Exam Date/Time: 04/07/2010 11:25 Ordering | | | Physician: MEDICAL SEE Order Detail: [id number] Exam Description: US | | | CAROTID DOPPLER LTD | | | | | | INDICATIONS: Swollen neck, recently status post carotid | | | endarterectomy on the right. COMPARISON: June 26, 2009. | | | TECHNIQUE: We used transcutaneous sonography, including duplex and | | | color Doppler sonography, to interrogate the right carotid artery | | | FINDINGS: The following peak systolic and end diastolic | | | velocities were obtained: On the RIGHT: proximal common | | | carotid artery 98/28 cm/sec distal common carotid artery 78/23 cm/sec | | | proximal internal carotid artery 63/17 cm/sec mid internal carotid | | | artery 39/14 cm/sec distal internal carotid artery 47/20 cm/sec | | | proximal external carotid artery 82/17 cm/sec There is antegrade | | | flow in the right vertebral artery at 13/5 cm/sec All the | | | recorded velocities are grade 1. On direct visual inspection, no | | | focal stenoses greater than 50% were identified. In the medial | | | neck, anterior to the carotid artery, a hypoechoic to anechoic to | | | fluid collection is seen. This measures 4.9 x 1.5 x 2.8 cm. In the | | | medial neck anterior to the carotid artery.It is consistent with a | | | seroma. There is wall thickening in the distal common carotid | | | artery and bulb. This may reflect edema or possibly an intramural | | | hematoma. IMPRESSION: 1. Both the recorded velocities and | | | direct visual examination are consistent with normal vessel diameters | | | to less than 50% stenoses on the right and left sides. 2. Focal | | | fluid collection in the medial neck anterior to the carotid artery, | | | likely a seroma. 3. Wall thickening in the distal common carotid | | | artery and bulb, mural edema versus intramural hemorrhage. | | | | | + + + + + | Procedure Note | + + | Alfred Landry Conversion - 05/20/2019 4:20 PM PDT | | [facility] | | [facility] [address] | | | | | | Patient Name: ROBBIE MCCARTHY | | Date of : 1940 | | Medical Record: [id number] | | Account: [id number] | | | | | | Exam Date/Time: 04/07/2010 11:25 | | Ordering Physician: MEDICAL SEE | | Order Detail: [id number] | | Exam Description: US CAROTID DOPPLER LTD | | | | INDICATIONS: | | Swollen neck, recently status post carotid endarterectomy on the right. | | | | COMPARISON: | | June 26, 2009. | | | | TECHNIQUE: | | We used transcutaneous sonography, including duplex and color Doppler | | sonography, to interrogate the right carotid artery | | | | FINDINGS: | | | | The following peak systolic and end diastolic velocities were obtained: | | | | On the RIGHT: | | | | proximal common carotid artery 98/28 cm/sec | | distal common carotid artery 78/23 cm/sec | | proximal internal carotid artery 63/17 cm/sec | | mid internal carotid artery 39/14 cm/sec | | distal internal carotid artery 47/20 cm/sec | | proximal external carotid artery 82/17 cm/sec | | | | There is antegrade flow in the right vertebral artery at 13/5 cm/sec | | | | All the recorded velocities are grade 1. | | | | On direct visual inspection, no focal stenoses greater than 50% were | | identified. | | | | | | In the medial neck, anterior to the carotid artery, a hypoechoic to | | anechoic to fluid collection is seen. This measures 4.9 x 1.5 x 2.8 cm. In | | the medial neck anterior to the carotid artery.It is consistent with a | | seroma. | | | | There is wall thickening in the distal common carotid artery and bulb. | | This may reflect edema or possibly an intramural hematoma. | | | | | | IMPRESSION: | | 1. Both the recorded velocities and direct visual examination are | | consistent with normal vessel diameters to less than 50% stenoses on the | | right and left sides. | | 2. Focal fluid collection in the medial neck anterior to the carotid | | artery, likely a seroma. | | 3. Wall thickening in the distal common carotid artery and bulb, mural | | edema versus intramural hemorrhage. | | | | | + + documented in this encounter Visit Diagnoses + + | Diagnosis | + + | Swelling, mass, or lump in head and neck | + + documented in this encounter"
--- OUTSIDE RECORDS SUMMARY | ~2020-05-18 | XMS | Encounter Summary ---
Demographics + + + | Address | [address] | | | [place] [address] | + + + | Home Phone | | + + + | Preferred Language | Unknown | + + + | Marital Status | | + + + | Mormon Affiliation | 1041 | + + + | Race | White | + + + | Ethnic Group | Not or | + + + Author + + + | Author | [facility] | | | and [place] | + + + | Organization | [facility] | | | and [place] | + + + | Address | Unknown | + + + | Phone | Unavailable | + + + Support + + + + + | Name | Relationship | Address | Phone | + + + + + | Tera Mccarthy | ECON | [place], [place] | | | | | [address] | | + + + + + | Alicia Mccarthy | ECON | [address] | | | | | [place] [address] | | + + + + + Care Team Providers + +------+ + | Care Tube Station Attendant Name | Role | Phone | + +------+ + | Brittany Meehan MD | PCP | | + +------+ + Encounter Details +--------+---------+ + + + | Date | Type | Department | Care Team | Description | +--------+---------+ + + + | 11/19/ | Office | [facility] | Sammie Reese, | Ischemic stroke | | 2020 | Visit | NEUROLOGY [address] | ([facility]) (Primary Dx) | | | | [address] | [address] | | | | | [place], [place] | [place] [address] | | | | | [address] | [phone] | | | | | [phone] | | | +--------+---------+ + + + [...] + documented as of this encounter Progress Sammie Her MD - 11/19/2019 11:30 AM PSTFormatting of this note might be different fro m the original. Subjective: Patient ID: Simon Mccarthy is a 79 y.o. male. HPI I have seen this patient in [facility] on 05/16/19 for stroke RFs: HLD, CAD s/p CABG, s/p b/l CEA, andpolycythemia treated with periodic phlebotomy and episodes of SVT. Onset of symptoms wassudden on 05/15/19 at 3:00 pm.The patientdid notawaken with sympt oms. Symptoms included left facial weakness and slurred speech. He came to hospital today(symptoms persist).Symptoms are currentlystable. Stroke risk factors:HTN, hyperlipidemia andCAD.(HTN?) Prior stroke history:None. The patientison chronic 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(ASA 81 mg daily). Work Up: LP: LDL-C 124 HGBA1c: 5.[address] Angiogram Head Neck Acute Stroke:Result Date: 05/16/2019: 1. The right vertebral artery [...] by: Jay Jay Tan Edward Sign Date/Time: 9 2:54 PM Brain MRI: Abnormal diffusion restriction is seen in the right centrum semiovale compatib le with an area of acute infarction. Echo: There is moderate increased left ventricular wall thickness. The left ventricular eje ction fraction is 75%. Normal size left atrium. The interatrial septum is normal. EKG: Normal sinus rhythm per report. Telemetry: SVT. Patient was switched to Plavix and was started on statin. Last visit and since discharge: Face and speech are stable to better, some drooling, no new neurologic symptoms. However, orthostatic lightheadedness. Multiple visit to hospital with SOB, tachycardia (SVT) and hypotension. BB was increased an d Digoxin was added. He is NO SHOW today. documented in this encounter Plan of Treatment +--------+---------+ + + + | Date | Type | Specialty | Care Team | Description | +--------+---------+ + + + | 06/25/ | Office | Cardiology | Connie Alvarez | | | 2019 | Visit | | [address] | | | | | | [address] | | | | | | [place] [address] | | | | | | [phone] | | | | | | | | +--------+---------+ + + + documented as of this encounter Visit Diagnoses + + | Diagnosis | + + | Ischemic stroke (HCC) - Primary | + + documented in this encounter"
--- OUTSIDE RECORDS SUMMARY | ~2020-05-18 | XMS | Encounter Summary ---
Demographics + + + | Address | [address] | | | [place] [address] | + + + | Home Phone | | + + + | Preferred Language | Unknown | + + + | Marital Status | | + + + | Gnosticist Affiliation | 1041 | + + + | Race | White | + + + | Ethnic Group | Not or | + + + Author + + + | Author | [facility] | | | and [place] | + + + | Organization | [facility] | | | and [place] | + + + | Address | Unknown | + + + | Phone | Unavailable | + + + Support + + + + + | Name | Relationship | Address | Phone | + + + + + | Tera Mccarthy | ECON | [place], [place] | | | | | [address] | | + + + + + | Alicia Mccarthy | ECON | [address] | | | | | [place] [address] | | + + + + + Care Team Providers + +------+ + | Care Heel Lining Paster Name | Role | Phone | + +------+ + PCP | Unavailable | + +------+ + Encounter Details +--------+ + + + + | Date | Type | Department | Care Team | Description | +--------+ + + + + | 08/24/ | Hospital | [facility] | Viktor Crisostomo | | | 2004 | Encounter | MED CTR GENERIC OP | [address] | | | | | CONV DEPT [address] | [place], [place] | | | | | [place], | [address] | | | | | [place] [address] | | | | | | [phone] | | | +--------+ + + + [...] [address] | | | | | | [place] [address] | | | | | | [phone] | | | | | | | | +--------+---------+ + + + documented as of this encounter Visit Diagnoses Not on filedocumented in this encounter"
--- OUTSIDE RECORDS SUMMARY | ~2020-05-18 | XMS | Encounter Summary ---
Demographics + + + | Address | [address] | | | [place] [address] | + + + | Home Phone | | + + + | Preferred Language | Unknown | + + + | Marital Status | | + + + | Cheondoism Affiliation | 1041 | + + + | Race | White | + + + | Ethnic Group | Not or | + + + Author + + + | Author | [facility] | | | and [place] [...] [place], [place] | | | | | [address] | | + + + + + | Alicia Mccarthy | ECON | [address] | | | | | [place] [address] | | + + + + + Care Team Providers + +------+ + | Care Plastics Worker Name | Role | Phone | + +------+ + | Brittany Meehan MD | PCP | | + +------+ + Reason for Visit + +--------+ + | Reason | Onset | Comments | | | Date | | + +--------+ + | Medication Question | 10/03/ | | | | 2018 | | + +--------+ + Encounter Details +--------+ + + + + | Date | Type | Department | Care Team | Description | +--------+ + + + + | 06/28/ | Telephone | [facility] | Connie Alvarez | Medication Question | | 2018 | | CARDIOLOGY NIRMAL | [address] | | | | | [address] | [address] | | | | | [address] | [place] [address] | | | | | [place] [address] | [phone] | | | | | [address] | | | | | | [phone] | | | +--------+ + + + [...] this encounter Miscellaneous Notes Telephone Encounter - Connie Alvarez FNP - 06/28/2019 4:24 PM PDTI called him back today about his dizziness, and he reported his blood pressure since he decreased his losarta n to 25 mg yesterday has been in the 160's, and was in the 140's prior to decreasing it, and he is still dizzy. His heart rate has been in the 70's , and has been taking losartan at night, and metoprol ol and digoxin in the day. He also had question about Zetia, as did not think any refills, and I told him that was o ld bottle and I had ordered 90 day supplies for one year when I saw him last. I told him he was set up for heart monitor for in [place], and his dizzin ess may be related to his stroke, or heart rate, but decreasing BP medication would not help it. I told him to sit with feet up When dizzy. I had him go back to losartan 50 mg At night. I had him repeat instructions. He appreciated call back . We will call to remind him of getting set up for monitor documented in this encounter Plan of Treatment +--------+---------+ + + + | Date | Type | Specialty | Care Team | Description | +--------+---------+ + + + | 06/25/ | Office | Cardiology | Connie Alvarez | | | 2019 | Visit | | [address] | | | | | | [address] | | | | | | [place] [address] | | | | | | [phone] | | | | | | | | +--------+---------+ + + + documented as of this encounter Visit Diagnoses Not on filedocumented in this encounter"
--- OUTSIDE RECORDS SUMMARY | ~2020-05-18 | XMS | Encounter Summary ---
Demographics + + + | Address | [address] | | | [place] [address] | + + + | Home Phone [...] + | Author | [facility] [...] [place], [place] | | | | | [address] | | + + + + + | Alicia Mccarthy | ECON | [address] | | | | | [place] [address] | | + + + + + [...] + + | 06/25/ | Office | [facility] | Sammie Reese, | Ischemic stroke | | 2019 | Visit | NEUROLOGY [address] | ([facility]) (Primary Dx); | | | | [address] | [address] | Facial weakness; | | | | [place], [place] | [place] [address] | Orthostatic | | | | [address] | [phone] | lightheadedness; | | | | [phone] | | Exercise counseling | +--------+---------+ + + + Social History [...] + + + | Blood Pressure | 144/71 | 06/25/2019 10:46 AM | oths-sithing 133/65 | | | | PDT | pulse 58 standing | | | | | 138/84 pulse 59 | + + + + + | Pulse | 56 | 06/25/2019 10:46 AM | | | | | PDT | | + + + + + | Temperature | - | - | | + + + + + | Respiratory Rate | - | - | | + + + + + | Oxygen Saturation | 97% | 06/25/2019 10:46 AM | | | | | PDT | | + + + + + | Inhaled Oxygen | - | - | | | Concentration | | | | + + + + + | Weight | 77.6 kg (171 lb) | 06/25/2019 10:46 AM | | | | | PDT | | + + + + + | Height | 175.3 cm (5' 9") | 06/25/2019 10:46 AM | | | | | PDT | | + + + + + | Body Mass Index | 25.25 | 06/25/2019 10:46 AM | | | | | PDT [...] documented as of this encounter Progress Notes Sammie Reese MD - 06/25/2019 10:45 AM PDTFormatting of this note might be different fro m the original. Subjective: Patient ID: Simon Mccarthy is a 79 y.o. male. HPI I have seen this patient in [facility] on 05/16/19 for stroke RFs: HLD, CAD s/p CABG, s/p b/l CEA, and polycythemia treated with periodic phlebotomy and episodes of SVT. Onset of symptoms was sudden on 05/15/19 at 3:00 pm.The patient did not awaken with symptoms . Symptoms included left facial weakness and slurred speech. He came to hospital today (symptoms persist). Symptoms are currently stable. Stroke risk factors: HTN, hyperlipidemia and CAD. (HTN?) Prior stroke history: None. The patient is on chronic 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 (ASA 81 mg daily). Work Up: LP: LDL-C [...] 4. Aspects score is 10. Signed by: Ja yJay Tan Edward Sign Date/Time: 9 2:54 PM [...] to Plavix and was started on statin. Since discharge: Face and speech are stable to better, some drooling, no new neurologic sym ptoms. However, orthostatic lightheadedness. Multiple visit to hospital with SOB, tachycardia (SVT) and hypotension. BB was increased an d Digoxin was added. 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 Hyperlipidemia Hyperlipidemia Hypertension Myalgia s/p lovastatin + meningitis Nasal and sinus discharge Occlusion of carotid artery PAD (peripheral artery disease) ([facility]) Polycythemia vera ([facility]) 2015 Renal stone Sciatica Sinusitis Chronic Stroke ([facility]) Trigeminy Ventricular pre-excitation Family History Problem Relation Age of Onset [...] file Social History Narrative Not on file Past medical history, family history and social history were reviewed and updated as mike johnson. Review of Systems No report of new general, or neurologic symptoms except to what mentioned in my HPI. Objective: There were no vitals taken for this visit. Physical Exam Vitals: Vitals: 06/25/19 1046 BP: 144/71 Pulse: 56 PainSc: 0 - No pain General: Well developed, in no acute distress Neck: Supple, unable to appreciate bruits. Heart: RRR, S1, S2 Speech: Is normal; fluent and spontaneous with normal naming and repetition. Cognition: The patient is oriented to person, place, and time. Cranial Nerves: At this time, the pupils are equal, round, and reactive to light. Extraocul ar movements are intact. Trigeminal sensation is intact. The face is asymmetric (left sided weakness). Voice is normal. Coordination: Normal finger to nose. Gait: Unremarakable. Tone: Normal muscle tone. Strength: Strength is 5/5 in the upper and lower limbs. Light Touch: Normal light touch sensation in upper and lower extremities. Orthostatic vitals were ok. Assessment: Reason for visit: Follow up after a stroke. With: Son. Impression: 1-Left facial weakness and slurred speech due to right MCA stroke, most likely due to art ziggy to artery process or due to small vessels disease diease. The location and the size are not suggestive of cardiac etiology. 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 3-Left carotid artery saccular aneurysm, asymptomatic. 4- Orthostatic lightheadedness. 5- HLD, HTN, CAD andpolycythemia. Plan: 1- The differential diagnosis and the necessary work up were discussed with the patient in detail. 2- I will request the previous work up as needed to be sent to my office for review. I revi ewed the available medical record and summarized it in my HPI. 3- We discussed the safety issues in detail including safe environment. No falls. 4- For #1, and #2, continue Plavix and Zetia to for secondary prophylaxis with LDL-C target of 40-70. Avoid Plavix with omeprazole. 5- For #3, consider referral to vascular surgery, will defer to PCP. 6- For #4, most likely medications and tachycardia. Agree with Holter (consider 4 weeks if possible). Follow with cardiology in regard to probably medication induced orthostatic l ightheadedness. 7- I covered with the patient all side effects of the regimen and the interaction with othe r medications. Patient understands and agrees to proceed with the regimen / plan. 8- Risk factors modification per PCP (BP less than 140/90 but avoid hypotension) and LDL-C as above. 9- RTC in 3-4 months or prn. However, patient was instructed to call with any concern, if s ymptoms are worsening, not improving or if any side effects related to regimen. Healthy diet and physical exercises. Plan: I spent more than 25 minutes face to face in managing this case with more than 50% of the t taurus was spent in plan coordination and counseling about the diagnosis, the pathology, the th erapeutic options of symptoms and the side effects of regimen. documented in this en counter Plan of Treatment +--------+---------+ + + + | Date | Type | Specialty | Care Team | Description | +--------+---------+ + + + | 06/25/ | Office | Cardiology | Connie Alvarez | | | 2019 | Visit | | [address] | | | | | | [address] | | | | | | [place] [address] | | | | | | [phone] | | | | | | | | +--------+---------+ + + + documented as of this encounter Visit Diagnoses + + | Diagnosis | + + | Ischemic stroke (HCC) - Primary | + + | Facial weakness | + + | Orthostatic lightheadedness Orthostatic hypotension | + + | Exercise counseling | + + documented in this encounter
--- OUTSIDE RECORDS SUMMARY | ~2020-05-18 | XMS | Encounter Summary ---
Demographics + + + | Address | [address] | | | [place] [address] | + + + | Home Phone | | + + + | Preferred Language | Unknown | + + + | Marital Status | | + + + | Taoist Affiliation | 1041 | + + + | Race | White | + + + | Ethnic Group | Not or | + + + Author + + + | Author | [facility] | | | and [place]ana [...] [place] | | | | | [address] | | + + + + + | Alicia Mccarthy | ECON | [address] | | | | | [place] [address] | | + + + + + Care Team Providers + +------+ + | Care Rfp Writer Name | Role | Phone | + [...] + + | 07/13/ | Office | [facility] | Lio Mendez, | Bronchiectasis (HCC) | | 2012 | Visit | PULMONARY [address] | MD [address] | (Primary Dx); | | | | [place], | [place], [place] | Chronic cough | | | | [place] [address] | [address] | | | | | [phone] | | | +--------+---------+ + + + [...] [address] | | | | | | [place] [address] | | | | | | [phone] | | | | | | | | +--------+---------+ + + + documented as of this encounter Visit Diagnoses + + | Diagnosis | + + | Bronchiectasis (HCC) - Primary Bronchiectasis without acute exacerbation | + + | Chronic cough Cough | + + documented in this encounter
--- OUTSIDE RECORDS SUMMARY | ~2020-05-18 | XMS | Encounter Summary ---
Demographics + + + | Address | [address] | | | [place] [address] | + + + | Home Phone | | + + + | Preferred Language | Unknown | + + + | Marital Status | | + + + | Episcopalian Affiliation | 1041 | + + + | Race | White | + + + | Ethnic Group | Not or | + + + Author + + + | Author | [facility] | | [...] [place], [place] | | | | | [address] | | + + + + + | Alicia Mccarthy | ECON | [address] | | | | | [place] [address] | | + + + + + Care Team Providers + +------+ + | Care Ordering Machine Operator Name | Role | Phone [...] + + | 05/21/ | Telephone | [facility] | Hugh Balwinderpo, | Neurology | | 2019 | | NEUROLOGY [address] | MD Joslyn VANEGAS | Appointment | | | | [address] | [address] | (Emergency | | | | [place], [place] | [place] [address] | department | | | | [address] | [phone] | referral/Stroke) | | | | [phone] | | | +--------+ + + + [...] Miscellaneous Notes Telephone Encounter - Sasha Nolasco, Flight Readiness Technician - 05/25/2019 11:33 AM PDTPatient had been [...] Details: Calling to schedule appointment. Call back: [phone] elephone Encounter - Bebe Mckeon - 05/21/2019 [...] transfer the call to a franc[employer]a [employer] shift supervisor was caller made aware that if [...] [address] | | | | | | [place] [address] | | | | | | [phone] | | | | | | | | +--------+---------+ + + + documented as of this encounter Visit Diagnoses Not on filedocumented in this encounter"
--- OUTSIDE RECORDS SUMMARY | ~2020-05-18 | XMS | Encounter Summary ---
Demographics + + + | Address | [address] | | | [place] [address] | + + + | Home Phone | | + + + | Preferred Language | Unknown | + + + | Marital Status | | + + + | Confucianist Affiliation | 1041 | + + + | Race | White | + + + | Ethnic Group | Not or | + + + Author + + + | Author | [facility] | | | and [place] | + + + | Organization | [facility] | | | and [place] | + + + | Address | Unknown | + + + | Phone | Unavailable | + + + Support + + + + + | Name | Relationship | Address | Phone | + + + + + | Tera Mccarthy | ECON | [place], [place] | | | | | [address] | | + + + + + | Alicia Mccarthy | ECON | [address] | | | | | [place] [address] | | + + + + + Care Team Providers + +------+ + | Care Brand Marketing Manager Name | Role | Phone | [...] [address] | | | | | [address] [facility] [place] | [place] [address] | | | | | [address] | [phone] | | | | | [phone] | | | +--------+ + + + [...] [address] | | | | | | [place] [address] | | | | | | [phone] | | | | | | | [...] 3. There is mild aortic regurgitation. 4. Cuca-th-ntgowtyu | | | mitral regurgitation is present. [...] mild aortic | | | regurgitation. 4. Rhlx-oc-omaqzruo mitral regurgitation is present. | | | [...] Doppler was | | | perfomed at [facility]. Study: This was a technically adequate [...] | Normal appearing mitral valve. Mitral Valve: Kych-au-xqisbxog mitral | | | regurgitation is present. [...] 1.05 m/s | | | MV Dec Laporte: 3.52 m/s2 MV DecT: 284.36 ms MV E Carl: 1.00 | | | m/s MV E/A Ratio: 0.94 MV PHT: 82.46 ms MVA By PHT: 2.66 | | | cm2 Septal e': 0.03 m/s Septal E/e': 26.13 Lateral e': | | | 0.08 m/s Lateral E/e': 11.76 TR maxP.04 mmHg TR Vmax: | | | 2.06 m/s RV s': 0.06 m/s Charter Driver: JEF Authenticated by: | | | Marky Reddy MD Report Date/Time: -- 82_1-0-0507_45:47:8 | | + + + + + [...] and function.3. There is mild aortic regurgitation.4. Wgux-ra-nrcmoihp mitral | | regurgitation is present.5. The ascending aorta is mildly dilated, measuring up to 3.9 | | cm. 6. In comparison to the previous echocardiographic study, done 05/16/18, no | | clinically significant changes are noted. FINDINGS--------ECG rhythm: Sinus | | rhythm.Study: A 2-dimensional transthoracic echocardiogram with m-mode, spectral and | | color flow Doppler was perfomed at [facility].Study: This was a technically adequate study, [...] Normal | | appearing mitral valve.Mitral Valve: Ioks-ix-afjeodcn mitral regurgitation is | | present.Mitral Valve: [...] cmLVPWd: 0.98 cmLVOT Area: | | 3.16 [id number] Diam: 2.00 cm%FS: 26.98 %EF(Teich): 52.71 %ESV(Teich): [...] mlLAESV Index (A-L): 27.67 ml/m2LAAs A2C: 17.74 [id number] A-L A2C: 55.08 | | mlLALs A2C: 4.85 cmLAAs A4C: 17.31 su2ZGOHU A-L A4C: 53.18 mlLALs A4C: 4.78 | | cmRAAs: 13.62 kh8USKTW A-L: 29.55 mlRAESV MOD: 26.73 mlRALs: 5.33 cmAV maxPG: | | 7.14 mmHgAV meanP.58 mmHgAV Vmax: 1.33 m/Phillip Vmean: 0.87 m/Phillip VTI: 27.23 | | cmAVA Vmax: 2.24 cm2AVA (VTI): 2.47 aa0CESH (Vmax): 0.00 cm2/m2AVAI (VTI): 0.00 | | cm2/m2LVOT maxP.58 mmHgLVOT meanP.65 mmHgLVSI Dopp: 34.25 ml/m2LVSV Dopp: | | 67.47 mlLVOT Vmax: 0.94 m/sLVOT Vmean: 0.58 m/sLVOT VTI: 21.31 cmMV A Carl: | | 1.05 m/sMV Dec Laporte: 3.52 m/s2MV DecT: 284.36 msMV E Carl: 1.00 m/sMV E/A Ratio: | | 0.94MV PHT: 82.46 msMVA By PHT: 2.66 ok5Ycqfxv e': 0.03 m/sSeptal E/e': | | 26.13Lateral e': 0.08 m/sLateral E/e': 11.76TR maxP.04 mmHgTR Vmax: 2.06 | | m/sRV s': 0.06 m/s Charter Driver: DBSAuthenticated by: Hector Tavarez | | Date/Time: -- 82_8-2-1044_24:47:8 IMPRESSION: 1. Overall left ventricular systolic | | function is normal with an EF between 65 - 70%.2. The right ventricle is normal in size | | and function.3. There is mild aortic regurgitation.4. Ywmi-hs-iosslsem mitral | | regurgitation is present.5. The [...] A Carl: 1.05 m/s | |MV Dec Laporte: 3.52 m/s2 | |MV DecT: 284.36 ms [...] |RV s': 0.06 m/s | | | |Charter Driver: DBS | |Authenticated by: Marky Rdedy MD | |Report Date/Time: -- 53_9-6-2546_05:47:8 | | | |IMPRESSION: | |1. Overall left ventricular systolic function is normal with an EF between 65 - 70%. | |2. The right ventricle is normal in size and function. | |3. There is mild aortic regurgitation. | |4. Zgoi-la-klqwqyot mitral regurgitation is present. | |5. The ascending aorta is mildly dilated, measuring up to 3.9 cm. 6. In comparison to the [facility] echocardiographic study, done 05/16/18, no clinically significant changes are noted. | + + documented in this encounter Visit Diagnoses Not on filedocumented in this encounter"
--- OUTSIDE RECORDS SUMMARY | ~2020-05-18 | XMS | Encounter Summary ---
Demographics + + + | Address | [address] | | | [place] [address] | + + + | Home Phone | | + + + | Preferred Language | Unknown | + + + | Marital Status | | + + + | Restoration Affiliation | 1041 | + + + | Race | White | + + + | Ethnic Group | Not or | + + + Author + + + | Author | [facility] | | | and [...] [place] | | | | | [address] | | + + + + + | Alicia Mccarthy | ECON | [address] | | | | | [place] [address] | | + + + + + Care Team Providers + +------+ + | Care Dance Teacher Name | Role | Phone | + +------+ + | Brittany Meehan MD | PCP | | + +------+ + Reason for Visit + + + | Reason | Comments | + + + | Follow-up | 4 week | + + + Encounter Details +--------+---------+ + + + | Date | Type | Department | Care Team | Description | +--------+---------+ + + + | 09/12/ | Office | [facility] | Shannan Yu DO | Coronary artery | | 2019 | Visit | CARDIOLOGY [place] | [address] | disease, angina | | | | [address] | [facility] [place] | presence | | | | [address] [place], [place] | [phone] | unspecified, | | | | [address] | | unspecified vessel | | | | [phone] | | or lesion type, | | | | | | unspecified whether | | | | | | [place] or | | | | | | transplanted heart | | | | | | (Primary Dx); | | | | | | Cerebrovascular | | | | | | accident (CVA), | | | | | | unspecified | | | | | | mechanism (HCC); | | | | | | Tachyarrhythmia; | | | | | | Coronary artery | | | | | | disease involving | | | | | | coronary bypass | | | | | | graft of [place] | | | | | | heart without angina | | | | | | pectoris; | | | | | | Hypertension goal BP | | | | | | (blood pressure) < | | | | | | 140/80; Dyslipidemia | +--------+---------+ + + + Social History [...] + + + | Blood Pressure | 120/68 | 09/12/2019 8:54 AM | | | | | PST | | + + + + + | Pulse | 77 | 09/12/2019 8:54 AM | | | | | PST | | + + + + + | Temperature | - | - | | + + + + + | Respiratory Rate | - | - | | + + + + + | Oxygen Saturation | 98% | 09/12/2019 8:54 AM | | | | | PST | | + + + + + | Inhaled Oxygen | - | - | | | Concentration | | | | + + + + + | Weight | 77.6 kg (171 lb) | 09/12/2019 8:54 AM | | | | | PST | | + + + + + | Height | 175.3 cm (5' 9") | 09/12/2019 8:54 AM | | | | | PST | | + + + + + | Body Mass Index | 25.25 | 09/12/2019 8:54 AM | | | | | PST [...] encounter Progress Notes Shannan Yu DO - 09/12/2019 9:00 AM PST [facility] Cardiology Cardiology Follow Up Note [...] He has since been following up with ErwinNicholefernando Alvarez, who added digoxin 125 mcg by des [...] like to try going off of it. Interim history I last saw the patient 4 weeks [...] if his LDL cholesterol is still uncontrolled. Review of Systems PAST MEDICAL & SURGICAL HISTORY Past Medical History: Diagnosis Date Abdominal aortic aneurysm (AAA) without rupture ([facility]) 06/20/2019 Arthralgia Atherosclerosis Bronchiectasis ([facility]) Mild , lower lobes CAD [...] and sinus discharge PAD (peripheral artery disease) ([facility]) Polycythemia vera ([facility]) 2016 Renal stone on imaging Sciatica Sinusitis Chronic Stroke ([facility]) Trigeminy Past Surgical History: Procedure Laterality [...] Home Medications Outpatient Encounter Medications as of 09/12/2019 Medication Sig Dispense Refill clopidogrel (PLAVIX) 75 [...] facility-administered encounter medications on file as of 09/12/2019. Allergies Allergies Allergen Reactions Penicillins Rash Statins [...] file Gets together: Not on file Attends protestant service: Not on file Active member of [...] on file PHYSICAL EXAM Vital Signs: BP 120/68 | Pulse 77 | Ht 1.753 m (5' 9") | Wt 77.6 kg (171 lb) | SpO2 98% | BMI 25.25 kg/m Physical Exam GENERAL: Well developed, well nourished, [...] [facility] [place] Last echo: 05/17/2019 ([facility]): EF 75%. LV normal in [...] MR. Mild TR. No pulmonary hypertension. Mild ID. No pericardial effusion. IVC not well visua lized. No mass, no clot VASCULAR PROCEDURES/ IMAGING Ct Angiogram Head Neck Acute Stroke:05/16/2019:[facility] w/ stroke: 1. The right [...] No acute intracranial findings Brain MRI:05/17/2019: [facility] w/ stroke: Abnormal diffusion restriction is seen in the right centrum semiovale compatible with an area of acute infarction. CEA: 02/2010:Right and left carotid artery endarterectomy Last carotid ultrasound: 04/26/2019:( [facility]) Atheromatous changes in the carotid arteries [...] elevation to anterior leads. Rate 67 bpm, ID 226 ms, QRS 108 ms, QTC 388 ms EK: Normal sinus rhythm, incomplete bundle branch block, prior septal infarct . First-degree A-V block. Rate 80 bpm, ID 206 ms, QRS 106 ms, QTC 420 ms (personally rev iewed by me in the office today and when compared to EKG done in 2014 ID interval has decrea sed ) EK05/31/2018:Sinus rhythm with first-degree AV block, incomplete right bundle branch blo ck. Old septal infarct Rate 60 bpm, ID 230 ms, QRS 108 ms, QTC 390 ms him a tracing pers onally reviewed by me, similar morphology to July 2017 EKG, except for increased first-d egree block EK05/16/2019: Sinus rhythm with first-degree AV block, incomplete right bundle branch blo ck, LVH, old septal infarct w/ low voltage QRS leads II aVF. Rate 61 bpm, ID 226 ms, QRS 11 0 ms, QTC 410 ms, tracing personally reviewed by me EK05/23/2019: Sinus rhythm with first-degree AV block, stable incomplete right bundle bra nch block, LVH, old septal infarct. Rate 70 bpm, ID 230 ms, QRS 140 ms, QTC 410 ms, tracing personally reviewed by me, and similar morphology to previous EKG performed in April 2019, in May 2018 EK05/30/2019:( [facility]) Sinus rhythm with first-degree block, incomplete right bundle branch block, old inferior infarct. Rate 76 bpm, ID 222 ms, QRS 106 ms, QTC 398 ms tracing person ally reviewed by me. EK06/01/2019: ( [facility]) SVT, incomplete right bundle branch block. Rate 124 bpm, QRS 108 ms , QTC 451 ms, tracing personally reviewed by me EK06/19/2019: ( metoprolol XL 50 mg) sinus rhythm with first-degree AV block and septal i nfarct, incomplete right bundle branch block. Rate 64 bpm, ID 224 ms, QRS 108 ms, QTC 402 m s, tracing personally reviewed by me EK07/31/2019: (metoprolol XL 50 mg /Digoxin 125 mcg) Sinus rhythm with first-degree AV bl ock, incomplete right bundle branch block, previous anterior VA, rate 69 bpm, ID 240 ms, QRS 102 ms, QTC 390 [...] ASSESSMENT & PLAN 1. Ischemic Stroke 2. SVT- followed by EP 3. Dizziness 4. Coronary artery disease s/p 6 vessel CABG 2008 5. PVD s/p CEA 2009; severe stenosis of right vertebral artery 6. HTN 7. Hyperlipidemia 8. COPD 9. Dilated ascending Aorta -The patient is a 79-year-old male who presents to the cardiology office to follow-up with the above past medical history. He recently established with EP for a history of SVT, there are plans for an EP study with possible ablation in September. He believes that his dizzines s has improvement with the decrease in his metoprolol. We discussed further measures to red uce his LDL cholesterol. He has had intolerances to several statins in the past with severe myalgias. He was taken off of Zetia as he thought it was contributing to his dizziness but he did not notice any change with discontinuing this medication. Will restart Zetia 10 mg by mouth daily today, repeat a fasting lipid panel in 3 months, if his LDL cholesterol is st ill uncontrolled, will consider PCSK9 inhibitor. - Start Zetia 10mg po daily - obtain a FLP in 3 months - Continue metoprolol succinate 50mg po daily - Continue losartan 50 mg by mouth nightly - Continue Plavix 75 mg by mouth daily - The patient is intolerant to statins - Follow up with EP as scheduled. - Follow up with neurology as scheduled. - Will plan to follow up ascending Ao with echo in one year. - Follow up in 3 months Thank you for allowing me to participate in the care of this patient. Primary Care Physician: MD Shannan Knowles DO 09/12/2019 documented in this enco unter Plan of Treatment +--------+---------+ + + + | Date | Type | Specialty | Care Team | Description | +--------+---------+ + + + | 06/25/ | Office | Cardiology | Connie Alvarez | | | 2019 | Visit | | [address] | | | | | | [address] | | | | | | [place] [address] | | | | | | [phone] | | | | | | | | +--------+---------+ + + + + +------+--------+ + + | Name | Type | Priori | Associated Diagnoses | Order Schedule | | | | ty | | | + +------+--------+ + + | Lipid Panel | Lab | Routin | Coronary artery | 1 Occurrences | | | | e | disease, angina | starting 09/12/2019 | | | | | presence | until 09/12/2020 | | | | | unspecified, | | | | | | unspecified vessel | | | | | | or lesion type, | | | | | | unspecified whether | | | | | | [place] or | | | | | | transplanted heart | | | | | | Cerebrovascular | | | | | | accident (CVA), | | | | | | unspecified | | | | | | mechanism (HCC) | | + +------+--------+ + + | Comprehensive | Lab | Routin | Coronary artery | 1 Occurrences | | Metabolic Panel | | e | disease, angina | starting 09/12/2019 | | | | | presence | until 09/12/2020 | | | | | unspecified, | | | | | | unspecified vessel | | | | | | or lesion type, | | | | | | unspecified whether | | | | | | [place] or | | | | | | transplanted heart | | | | | | Cerebrovascular | | | | | | accident (CVA), | | | | | | unspecified | | | | | | mechanism (HCC) | | + +------+--------+ + + documented as of this encounter Visit Diagnoses + + | Diagnosis | + + | Coronary artery disease, angina presence unspecified, unspecified vessel or lesion | | type, unspecified whether [place] or transplanted heart - Primary | + + | Cerebrovascular accident (CVA), unspecified mechanism (HCC) | + + | Tachyarrhythmia Tachycardia, unspecified | + + | Coronary artery disease involving coronary bypass graft of [place] heart without angina | | pectoris | + + | Hypertension goal BP (blood pressure) < 140/80 Unspecified essential hypertension | + + | Dyslipidemia Other and unspecified hyperlipidemia | + + documented in this encounter
--- OUTSIDE RECORDS SUMMARY | ~2020-05-18 | XMS | Encounter Summary ---
Demographics + + + | Address | [address] | | | [place] [address] | + + + | Home Phone [...] + | Author | [facility] | | | and Danielana [...] [place], [place] | | | | | [address] | | + + + + + | Alicia Mccarthy | ECON | [address] | | | | | [place] [address] | | + + + + + Care Team Providers + +------+ + | Care Library Paraprofessional Name | Role | Phone | + +------+ + | Brittany Meehan MD | PCP | | + +------+ + Encounter Details +--------+---------+ + + + | Date | Type | Department | Care Team | Description | +--------+---------+ + + + | 11/19/ | Office | [facility] | Sammie Reese, | Ischemic stroke | | 2020 | Visit | NEUROLOGY [address] | ([facility]) (Primary Dx) | | | | [address] | [address] | | | | | [place], [place] | [place] [address] | | | | | [address] | [phone] | | | | | [phone] | | | +--------+---------+ + + + [...] HPI I have seen this patient in [facility] on 05/16/19 for stroke RFs: HLD, CAD [...] | | | | | | [place] [address] | | | | | | [phone] | | | | | | | | +--------+---------+ + + + documented as of this encounter Visit Diagnoses + + | Diagnosis | + + | Ischemic stroke (HCC) - Primary | + + documented in this encounter"
--- OUTSIDE RECORDS SUMMARY | ~2020-05-18 | XMS | Encounter Summary ---
Demographics + + + | Address | [address] | | | [place] [address] | + + + | Home Phone | | + + + | Preferred Language | Unknown | + + + | Marital Status | | + + + | Hindu Affiliation | 1041 | + + + | Race | White | + + + | Ethnic Group | Not or | + + + Author + + + | Author | [facility] | | | and Danielana | + + + | Organization | [facility] | | | and [place] | + + + | Address | Unknown | + + + | Phone | Unavailable | + + + Support + + + + + | Name | Relationship | Address | Phone | + + + + + | Tera Mccarthy | ECON | [place], [place] | | | | | [address] | | + + + + + | Alicia Mccarthy | ECON | [address] | | | | | [place] [address] | | + + + + + Care Team Providers + +------+ + | Care Marking Devices Assembler Name | Role | Phone | + [...] + + | 10/17/ | Telephone | [facility] | Cornel Sibely | Other | | 2020 | | [facility] | MD [address] | | | | | [address] | [address] | | | | | [place], [place] | [place] [address] | | | | | [address] | [phone] | | | | | [phone] | | | +--------+ + + + [...] [address] | | | | | | [place] [address] | | | | | | [phone] | | | | | | | | +--------+---------+ + + + documented as of this encounter Visit Diagnoses Not on filedocumented in this encounter"
--- OUTSIDE RECORDS SUMMARY | ~2020-05-18 | XMS | Encounter Summary ---
Demographics + + + | Address | [address] | | | [place] [address] | + + + | Home Phone | | + + + | Preferred Language | Unknown | + + + | Marital Status | | + + + | Denominational Affiliation | 1041 | + + + | Race | White | + + + | Ethnic Group | Not or | + + + Author + + + | Author | [facility] | | | and Danielana | + + + | Organization | [facility] | | | and [place] | + + + | Address | Unknown | + + + | Phone | Unavailable | + + + Support + + + + + | Name | Relationship | Address | Phone | + + + + + | Tera Mccarthy | ECON | [place], [place] | | | | | [address] | | + + + + + | Alicia Mccarthy | ECON | [address] | | | | | [place] [address] | | + + + + + Care Team Providers + +------+ + | Care Clinical Rehabilitation Specialist Name | Role | Phone | + +------+ + | Matias Muñoz MD | PCP | | + +------+ + Reason for Visit + + + | Reason | Comments | + + + | Establish Care | | + + + Encounter Details +--------+---------+ + + + | Date | Type | Department | Care Team | Description | +--------+---------+ + + + | 04/03/ | Office | [facility] | Lio Mendez, | Chronic cough | | 2012 | Visit | PULMONARY [address] | MD [address] | (Primary Dx); | | | | [place], | [place], [place] | Allergic rhinitis | | | | [place] [address] | [address] | | | | | [phone] | | | +--------+---------+ + + + [...] + | Blood Pressure | 142/76 | 04/03/2013 9:57 AM | | | | | PDT | | + + + + + | Pulse | 53 | 04/03/2013 9:57 AM | | | | | PDT | | + + + + + | Temperature | 36.7 C (98 F) | 04/03/2013 9:57 AM | | | | | PDT | | + + + + + | Respiratory Rate | - | - | | + + + + + | Oxygen Saturation | 98% | 04/03/2013 9:57 AM | | | | | PDT | | + + + + + | Inhaled Oxygen | - | - | | | Concentration | | | | + + + + + | Weight | 79.8 kg (176 lb) | 04/03/2013 9:57 AM | | | | | PDT | | + + + + + | Height | 175.3 cm (5' 9") | 04/03/2013 9:57 AM | | | | | PDT | | + + + + + | Body Mass Index | 25.99 | 04/03/2013 9:57 AM | | | | | PDT | | + + + + + documented in this encounter Patient Instructions Patient Instructions Lio Mendez MD - 04/03/2013 10:44 AM PDTVisit with your local p harmacist and get a topical antibiotic for your nasal sore. Apply ointment to sore once ghulam ly in morning documented in this encounter Progress Notes Lio Mendez MD - 04/03/2013 10:13 AM PDTFormatting of this note might be different f rom the original. Pulmonary Consult Note 04/03/2013 HPI Simon Mccarthy is a 73 y.o. male patient of Matias Muñoz here today for evaluation of chronic cough. Symptoms began ~20 years ago. Initially had nasal surgery. Nasal congestion seems to wors en. Saw another ENT no additional treatment recommended. Dr. Muñoz's started various inhale d meds and antibiotics. Specifically Advair and when necessary albuterol. Simon is uncer tain regarding whether these medications appeared to impact his symptoms. In 2003 the patient was evaluated by Dr. Crisostomo. At that time he was not taking an inha led corticosteroid. Dr. Crisostomo consider the possibility of cough variant asthma I recomm ended a several week trial of Pulmicort. This did not improve the patient symptoms and Pulm icort was discontinued. Dr. Crisostomo place the patient on Nasacort by Simon never return ed for followup. Pulmonary function tests at that time were within normal limits. Simon noted acid reflux symptoms 6 or so months ago. These have all but resolved with om eprazole. The patient denies prior treatment with a antihistamine. He is a chronic sore in his left nares. The patient describes intermittently feeling his "lungs ache" and subsequent treatment with antibiotics. The patient has occasionally been treated with systemic corticosteroids. Ant ibiotic seems to help his symptoms to a mild degree with no appreciable change from predniso ne. 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 The hay is at times mold y. Pets include a dog. There is no visible mold in the home. No appreciable water damage. There is no history of wheezing or chest pain. The patient had pneumonia while in college . Currently they are able to walk many miles at their own pace on level ground. The distance walked is predominately limited by fatigue. One year ago, they feel that they could walk monroe e distance. They do not exercise regularly. Walks when possible. They are not enrolled in c ardiac/pulmonary rehabilitation or other physical therapy. They have not completed pulmonary rehabilitation in the past. He does cough chronically, and does produce mucous. The mucous is clear in color and scant. They have not had hemoptysis. PND symptoms are present. These include frequent throat clearing. No chest tightness. No hoarseness. They have not had to be hospitalized for breathing issues in the past, and have not require d intubation in the past. They have not had to go to the emergency room in the last year. Th ey have had 1-2 exacerbations in the past year requiring treatment with prednisone or antibi otics. He has not been evaluated for nocturnal oxygen and does not use it. 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 Sinusitis Chronic Renal stone Benign essential hypertension ASHD (arteriosclerotic heart disease) Ventricular pre-excitation Nasal and sinus discharge Sciatica Hyperlipidemia Trigeminy Myalgia s/p lovastatin + meningitis Atherosclerosis Glucose intolerance (impaired glucose tolerance) CAD (coronary artery disease) Past Surgical History Past Surgical History Procedure Date Nasal septum surgery Coronary artery bypass graft 2008 6 vessel/ RLE veing harvest L and r cea 2009 Family History: Family History Problem Relation Age of Onset Coronary artery disease Mother * Mother DJD Kidney disease Brother * Brother AAA Social History: He reports that he has never smoked. He has quit using smokeless tobacco. He reports that h e drinks alcohol. He reports that he does not use illicit drugs. Allergies: Allergies Allergen Reactions Penicillins Medications: Current [...] irritation. ENT: Denies earache, tinnitus, decreased hearing, nasal congestion, nosebleeds, sore throa t, and hoarseness. Resp: Denies hemoptysis or pleuritic chest pain. CV: Denies neck/chest/jaw pain with exertion, palpitations, lightheadedness, syncope, dysp leroy on exertion, orthopnea, PND, peripheral edema, and claudication. GI: Denies trouble swallowing, heartburn, nausea, vomiting, abdominal pain, diarrhea, cons tipation,melena, and hematochezia. Denies dysuria, hematuria, urinary frequency, difficulty emptying bladder, nocturia. Musculoskeletal: Denies joint pain/stiffness, joint swelling, back pain, neck pain, muscle cramps, muscle weakness. Derm: Denies rash, itching, dryness, and suspicious lesions. Neurologic: Denies frequent headaches, seizures, tremors, numbness or tingling in hands or feet, vertigo, and fall or difficulty walking in past 6 months Psych Denies depression, anxiety, suicidal ideation. Endo Denies cold intolerance, heat intolerance, and unusual weight change. Heme Denies abnormal bruising, bleeding, and enlarged lymph nodes. Allergy Denies urticaria, allergic rash, hay fever Objective BP 142/76 | Pulse 53 | Temp 36.7 C (98 F) (Tympanic) | Ht 1.753 m (5' 9") | Wt 79.833 k g (176 lb) | BMI 25.99 kg/m2 | SpO2 98% General Appearance: Alert, cooperative, no distress, appears stated age. Head: Normocephalic, without obvious abnormality, atraumatic. Eyes: PERRL, conjunctiva/corneas clear. Ears: Normal external appearance, TM's not examined. Nose: Nares normal, septum midline, mucosa normal on the right. An area of excoriation/sca b in the left anterior nares., no drainage or sinus tenderness. Throat: Lips, mucosa, and tongue normal; teeth and gums normal. MP 1 . Neck: Supple, symmetrical, no adenopathy. Lungs: No accessory muscle use, breath sounds are reduced to auscultation bilaterally, no wheezes, crackles or rhonchi. No dullness to percussion. Chest Wall: No tenderness or deformity. Heart: Regular rate and rhythm, S1, S2 normal, no murmur, rub or gallop Abdomen: Soft, non-tender. No hepatosplenomegaly. Extremities: Extremities normal, atraumatic, no cyanosis, clubbing, or edema Pulses: Radial pulses 2+ and symmetric Skin: Warm and dry Lymph nodes: Cervical and supraclavicular nodes normal Neurologic: Gait normal Data: Chest x-ray -none recent Pulmonary function tests were performed on and were reviewed and interpreted in cl inic today. They show FEV1 is 3.87, 120% of predicted. The FEV1/FEC is 79%. The total rg g capacity 7.6, 115% of predicted and the uncorrected DLCO 36.5, 123% predicted. Matias Muñoz's notes were reviewed in clinic today. Assessment Simon is a 73-year-old nonsmoker who is referred by Ranulfo Muñoz M.D. for pulmonary consul tation regarding a chronic cough. The patient's cough goes back 20 odd years. Treatment has included inhaled corticosteroids , long-acting beta agonists and short acting beta agonist. The patient was also treated wit h a nasal steroid for a short period time with unclear results. Occasionally Simon receiv es antibiotics and systemic corticosteroids. He was evaluated by Dr. Crisostomo in 2003 and had normal pulmonary function at that time. The patient's physical exam is unremarkable with the exception of an area of excoriation of the nasal mucosa on the left side. This potentially represents a chronic area of inflammat ion. A less likely possibility would be a focal skin cancer. Simon current symptoms are consistent with post nasal drip. He is already on therapy for GERD and cough variant asthma. I suggest the patient that he have a chest x-ray performed today. Empiric therapy with a n jaron steroid will occur. We also discussed use of a topical antibiotic to treat his left na eufemia mucosal abnormality. Plan 1. PA and lateral chest x-ray today. 2. Nasonex 2 sprays each nostril at bedtime. 3. Patient to obtain a topical antibiotic with the aid of his local pharmacist and begin a pplying to left nasal mucosal abnormality daily. 4. Pulmonary clinic followup appointment to review the above noted studies/patient's respo nse in 3 weeks time. 5. Anticipate discontinuation of Advair and Ventolin. CC: Matias Muñoz A M PDTdocumented in this encounter Miscellaneous Notes Miscellaneous - ONBASE SCAN [facility] - 04/25/2013 12:00 AM PDT iscellaneous - ONBASE SCAN [facility] - 04/03/2013 12:00 AM PDTEle ctronically signed by Vania Davismn at 04/25/2013 11:09 AM PDTdocumented in this encounter Plan of Treatment +--------+---------+ + + + | Date | Type | Specialty | Care Team | Description | +--------+---------+ + + + | 06/25/ | Office | Cardiology | Connie Alvarez | | | 2019 | Visit | | [address] | | | | | | [address] | | | | | | [place] [address] | | | | | | [phone] | | | | | | | | +--------+---------+ + + + documented as of this encounter Results XR Chest PA and Lateral (04/03/2013 2:19 PM PDT) + + | Specimen | + + | | + + + + + | Narrative | Performed At | + + + | [facility] | [place] | | Department [address] [place] [address] | [place] | | [ rep [address]] [ rep [facility] | | st zip] Signed | - IMAGING | | | | | Patient Name: SIMON MCCARTHY Physician: | | | : 1940 Age: 73 Sex: M Unit #: [id number] | | | Exam Date: 04/03/13 Location: [facility] | | | Report #: [id number] Page: | | | %(RAD)RES..mtdd.print.filter("pg") of %(RAD) | | | RES..mtdd.print.filter("tpg") | | | | | | Accession Number: [id number] | | | CHEST PA AND LATERAL [...] Transcribed Date/Time: 04/03/2013 16:39 | | | [employer]: <<Signature on File>> | | | | | | Duane Méndez MD04/03/13 9231 <Electronically signed by Duane Zaidi | | | Dev MELENDEZ> Duane Méndez MD 04/03/13 8104 | | | [employer]: Eros Laguna04/03/13 4062 | | | Lio Mendez MD | | + + + + + + + + | Performing | Address | City/State/Zipcode | Phone Number | | Organization | | | | + + + + + | [facility] | [address] | [place] | [phone] | | [facility] | | [address] | | | - IMAGING | | | | + + + + + documented in this encounter Visit Diagnoses + + | Diagnosis | + + | Chronic cough - Primary Cough | + + | Allergic rhinitis Allergic rhinitis, cause unspecified | + + documented in this encounter
--- OUTSIDE RECORDS SUMMARY | ~2020-05-18 | XMS | Encounter Summary ---
Demographics + + + | Address | [address] | | | [place] [address] | + + + | Home Phone | | + + + | Preferred Language | Unknown | + + + | Marital Status | Single | + + + | Congregation Affiliation | Unknown | + + + | Race | Unknown | + + + | Ethnic Group | Other Race | + + + Author + + + | Author | [facility] | + + + | Organization | [facility] | + + + | Address | Unknown | + + + | Phone | Unavailable | + + + Care Team Providers + +------+ + | Care Director Of [employer] Name | Role | Phone | + +------+ + PCP | Unavailable | + +------+ + Encounter Details +--------+ + + + + | Date | Type | Department | Care Team | Description | +--------+ + + + + | 05/23/ | Results | Registration [id number] | [address] | | | 2008 | Only | [address] | [phone] | | | | | Rd Mailcode: [id number] | | | | | | [place], [place] | | | | | | [address] | | | | | | [phone] | | | +--------+ + + + [...] | | Results for this | | [facility]) | e | | | procedure [...] | | | | | MNT) | [address] CLINICAL | | | | | | [...] | + + + + + | [facility] | [address] | [place] [address] | | | PATHOLOGY | [address] | | | + + + + + documented in this encounter Visit Diagnoses Not on filedocumented in this encounter"
--- OUTSIDE RECORDS SUMMARY | ~2020-05-18 | XMS | Encounter Summary ---
Demographics + + + | Address | [address] | | | [place] [address] | + + + | Home Phone | | + + + | Preferred Language | Unknown | + + + | Marital Status | | + + + | Adventist Affiliation | 1041 | + + + | Race | White | + + + | Ethnic Group | Not or | + + + Author + + + | Author | [facility] | [...] [place], [place] | | | | | [address] | | + + + + + | Alicia Mccarthy | ECON | [address] | | | | | [place] [address] | | + + + + + Care Team Providers + +------+ + | Care Digital Advertising Analyst Name | Role | Phone | + +------+ + | Brittany Meehan MD | PCP | | + +------+ + Reason for Visit + +--------+ + | Reason | Onset | Comments | | | Date | | + +--------+ + | Appointment | 10/22/ | | | | 2019 | | + +--------+ + Encounter Details +--------+ + + + + | Date | Type | Department | Care Team | Description | +--------+ + + + + | 10/22/ | Telephone | [facility] | Cornel Sibley | Appointment | | 2020 | | [facility] | MD [address] | | | | | [address] | [address] | | | | | [place], [place] | [place] [address] | | | | | [address] | [phone] | | | | | [phone] | | | +--------+ + + + [...] Notes Telephone Encounter - Leola Norton - 10/22/2019 3:07 PM PSTCalled patients contact Preet valiente (son), after trying to get a hold of patient multiple times. He states that patient had a stroke 10/15/19. [facility]. He will not marjan e it in for his follow up apt. Leola Norton documented in this enc ounter Plan of Treatment +--------+---------+ + + + | Date | Type | Specialty | Care Team | Description | +--------+---------+ + + + | 06/25/ | Office | Cardiology | Connie Alvarez | | 2019 | Visit | | [address] | | | | | | [address] | | | | | | [place] [address] | | | | | | [phone] | | | | | | | | +--------+---------+ + + + documented as of this encounter Visit Diagnoses Not on filedocumented in this encounter"
--- OUTSIDE RECORDS SUMMARY | ~2020-05-18 | XMS | Encounter Summary ---
Demographics + + + | Address | [address] | | | [place] [address] | + + + | Home Phone [...] | [facility] | | | and [...] [place] | | | | | [address] | | + + + + + | Alicia Mccarthy | ECON | [address] | | | | | [place] [address] | | + + + + + Care Team Providers + +------+ + | Care Senior Javascript Engineer Name | Role | Phone | [...] + + | 03/12/ | Virtual | [facility] | Shannan Yu DO | Tachyarrhythmia | | 2020 | Office | CARDIOLOGY ELLEN | [address] | (Primary Dx); | | | Visit | [address] | [place], [place] | Coronary artery | | | | [address] | [id number] | disease involving | | | | [address] | | coronary bypass | | | | [phone] | | graft of lovelock | | | | | | heart [...] PM PDT Clinical discussion length: 11-20 min (85890) Patient has not been seen in office within the past 7 days, and outcome of this call is not to recommend soonest available office visit. Participants: Patient Participant verbally confirmed the choice to initiate care by, and consents to receive care by Telephone. Participant is currently at home [facility] Cardiology Cardiology Follow Up Note Reason [...] after this, he suffered a stroke in [facility]. He was in rehab for about 4 months there. He reports that one of his eyes still is n ot tracking appropriately and has affected his balance a lot. He plans on going back to [facility] to see a neuroophthalmologist. He denies any [...] ABLATION SVT; Surgeon: Cornel Sibley MD; Location: [facility] EP L AB CARDIAC CATHERIZATION 06/2009 LM [...] file Gets together: Not on file Attends restoration service: Not on file Active member of [...] regional wall motion abnormalities. Last echo: 05/17/2019 ([facility]): EF 75%. LV normal in size [...] MR. Mild TR. No pulmonary hypertension. Mild NJ. No pericardial effusion. IVC not well visua lized. No mass, no clot VASCULAR PROCEDURES/ IMAGING Ct Angiogram Head Neck Acute Stroke:05/16/2019:[facility] w/ stroke: 1. The right vertebral [...] 3. No acute intracranial findings Brain MRI:05/17/2019: [facility] w/ stroke: Abnormal diffusion restriction is seen in the right centrum semiovale compatible with an area of acute infarction. CEA: 02/2010:Right and left carotid artery endarterectomy Last carotid ultrasound: 04/26/2019:( [facility] [place] Atheromatous changes in the carotid arteries maik [...] elevation to anterior leads. Rate 67 bpm, NJ 226 ms, QRS 108 ms, QTC 388 ms EK: Normal sinus rhythm, incomplete bundle branch block, prior septal infarct . First-degree A-V block. Rate 80 bpm, NJ 206 ms, QRS 106 ms, QTC 420 ms (personally rev iewed by me in the office today and when compared to EKG done in 2013 NJ interval has decrea sed ) EK05/31/2018:Sinus rhythm with first-degree AV block, incomplete right bundle branch blo ck. Old septal infarct Rate 60 bpm, NJ 230 ms, QRS 108 ms, QTC 390 ms him a tracing pers onally reviewed by me, similar morphology to July 2017 EKG, except for increased first-d egree block EK05/16/2019: Sinus rhythm with first-degree AV block, incomplete right bundle branch blo ck, LVH, old septal infarct w/ low voltage QRS leads II aVF. Rate 61 bpm, NJ 226 ms, QRS 11 0 ms, QTC 410 ms, tracing personally reviewed by me EK05/23/2019: Sinus rhythm with first-degree AV block, stable incomplete right bundle bra nch block, LVH, old septal infarct. Rate 70 bpm, NJ 230 ms, QRS 140 ms, QTC 410 ms, tracing personally reviewed by me, and similar morphology to previous EKG performed in April 2019, in May 2018 EK05/30/2019:( [facility]) Sinus rhythm with first-degree block, incomplete right bundle branch block, old inferior infarct. Rate 76 bpm, NJ 222 ms, QRS 106 ms, QTC 398 ms tracing person ally reviewed by me. EK06/01/2019: ( [facility]) SVT, incomplete right bundle branch block. Rate 124 bpm, QRS 108 ms , QTC 451 ms, tracing personally reviewed by me EK06/19/2019: ( metoprolol XL 50 mg) sinus rhythm with first-degree AV block and septal i nfarct, incomplete right bundle branch block. Rate 64 bpm, NJ 224 ms, QRS 108 ms, QTC 402 m s, tracing personally reviewed by me EK07/31/2019: (metoprolol XL 50 mg /Digoxin 125 mcg) Sinus rhythm with first-degree AV bl ock, incomplete right bundle branch block, previous anterior CT, rate 69 bpm, NJ 240 ms, QRS 102 ms, QTC 390 ms, tracing personally reviewed by me, and similar morphology to previous E KG [facility] Normal sinus rhythm average heart [...] [address] | | | | | | [place] [address] | | | | | | [phone] | | | | | | | | +--------+---------+ + + + documented as of this encounter Visit Diagnoses + + | Diagnosis | + + | Tachyarrhythmia - Primary Tachycardia, unspecified | + + | Coronary artery disease involving coronary bypass graft of lovelock heart without angina | | pectoris | + + | Peripheral arterial disease (HCC) Unspecified disorders of arteries and arterioles | + + documented in this encounter
--- OUTSIDE RECORDS SUMMARY | ~2020-05-18 | XMS | Encounter Summary ---
Demographics + + + | Address | [address] | | | [place] [address] | + + + | Home Phone [...] + + + | Author | [facility] | | | and [place] | + + + | Organization | [facility] | | | and [place] | + + + | Address | Unknown | + + + | Phone | Unavailable | + + + Support + + + + + | Name | Relationship | Address | Phone | + + + + + | Tera Mccarthy | ECON | [place], [place] | | | | | [address] | | + + + + + | Alicia Mccarthy | ECON | [address] | | | | | [place] [address] | | + + + + + Care Team Providers + +------+ + | Care Pipeline Controller Name | Role | Phone | + +------+ + PCP | Unavailable | + +------+ + Encounter Details +--------+ + + + + | Date | Type | Department | Care Team | Description | +--------+ + + + + | 04/07/ | Hospital | [facility] | de Sonya, | Swelling, mass, or | | 2009 | Encounter | CONVERSION [address] | [address] | lump in head and | | | | [address] | [address] | neck | | | | [place], [place] | [place] [address] | | | | | [address] | [phone] | | | | | [phone] | | | +--------+ + + + [...] [address] | | | | | | [place] [address] | | | | | | [phone] | | | | | | | [...] At | + + + | [facility] [address] Ph: | | | Patient Name: ROBBIE MCCARTHY Date of : | | | 1940 Medical Record: [id number] Account: [id number] | | | Exam Date/Time: 04/07/2010 11:25 [...] - 05/20/2019 4:20 PM PDT | | [facility] | | [facility] [address] | | | | | | Patient Name: ROBBIE MCCARTHY | | Date of : 1940 | | Medical Record: [id number] | | Account: [id number] | | | | | | Exam [...]
--- OUTSIDE RECORDS SUMMARY | ~2020-05-18 | XMS | Encounter Summary ---
Demographics + + + | Address | [address] | | | [place] [address] | + + + | Home Phone [...] + + + | Author | [facility] | | | and Danielana | + + + | Organization | [facility] | | | and [place] | + + + | Address | Unknown | + + + | Phone | Unavailable | + + + Support + + + + + | Name | Relationship | Address | Phone | + + + + + | Tera Mccarthy | ECON | [place] | | | | | [address] | | + + + + + | Alicia Mccarthy | ECON | [address] | | | | | [place] [address] | | + + + + + Care Team Providers + +------+ + | Care Home Care Nurse Name | Role | Phone | [...] + + | 05/23/ | Office | [facility] | Connie Alvarez | Coronary artery | | 2019 | Visit | CARDIOLOGY [place] | [address] | disease involving | | | | [address] | [address] | conf[place] coronary | | | | [address] [place], [place] | [place] [address] | artery of [place] | | | | [address] | [phone] | heart without angina | | | | [phone] | | pectoris (Primary | | | [...] | | | | | | vera ([facility]) | +--------+---------+ + + + Social History [...] 25 mg. 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 He is accompanied by his son Dougie today who contributed to history, and also drove him t o the appointment. He is a patient of Dr. Lim and last seen by him in July 2016, and has not followed u p with him since Dr. Lim stopped coming to [place], as difficult for him He has a [...] also recommended he be evaluated for sleep information technology account manager ea, but the patient had declined, as [...] [facility] with acute CVA. I reviewed hospital notes [...] only increase his activity by 25 %/w unga, and not to overdo it, and has [...] dizziness, or syncope. [facility] also [facility] of [facility] or transient ischemic attack [facility] He had previously establish care establishing care with PCP in [place], Dr. Brittany nation, who he had also seen in urgent care for bronchiectasis, and had first clinic visit with [facility] in February. He has remained quite [...] leg V CU [place] Last echo: 05/17/2019 ([facility]): EF 75%. LV normal in size [...] Mild TR. No pu lmonary hypertension. Mild OH. No pericardial effusion. IVC not well visualized. No mass , no clot VASCULAR PROCEDURES/ IMAGING Ct Angiogram Head Neck Acute Stroke:05/16/2019:[facility] w/ stroke: 1. The right vertebral [...] 3. No acute intracranial findings Brain MRI:05/17/2019: [facility] w/ stroke: Abnormal diffusion restriction is seen in the right centrum semiovale compatible with an area of acute infarction. CEA: 02/2010: Right and left carotid artery endarterectomy Last carotid ultrasound: 04/26/2019:( [facility]) Atheromatous changes in the carotid arteries [...] elevation to anterior leads. Rate 67 bpm, OH 226 ms, QRS 108 ms, QTC 388 ms EK: Normal sinus rhythm, incomplete bundle branch block, prior septal infarct . First-degree A-V block. Rate 80 bpm, OH 206 ms, QRS 106 ms, QTC 420 ms (personally revie wed by me in the office today and when compared to EKG done in 2013 OH interval has decrease d ) EK05/31/2018: Sinus rhythm with first-degree AV block, incomplete right bundle branch bloc k. Old septal infarct Rate 60 bpm, OH 230 ms, QRS 108 ms, QTC 390 ms him a tracing persona lly reviewed by me, similar morphology to July 2017 EKG, except for increased first-degr ee block EK05/16/2019: Sinus rhythm with first-degree AV block, incomplete right bundle branch blo ck, LVH, old septal infarct w/ low voltage QRS leads II aVF. Rate 61 bpm, OH 226 ms, QRS 11 0 ms, QTC 410 ms, tracing personally reviewed by me EK05/23/2019: Sinus rhythm with first-degree AV block, stable incomplete right bundle bra nch block, LVH, old septal infarct. Rate 70 bpm, OH 230 ms, QRS 140 ms, QTC 410 [...] otid bulb. 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 He had an echo performed on April 26 at [facility], and a repeat echo performed during h is hospitalization on May 17. Both documents normal EF of 65-70%, mild to moderate LVH, no regional wall motion abnormalities, but the echo performed in the hospital does document mild aortic stenosis which was not noted on his echo performed at [facility], both noted a mildly dilated ascending aorta, [...] him in 4 weeks. I sent an [employer] message to him, and he responded that he will get his office to contact [facility] directly for a follow-up visit. I have [...] He will follow-up with his PCP in [place], but I have told him not to make any medication changes without consulting with me. 1. Coronary artery disease involving [place] coronary artery of [place] heart without angina pectoris 2. Hospital discharge [...] history, past [facility] history. [facility] Opal ford in this encounter [...] [address] | | | | | | [place] [address] | | | | | | [phone] | | | | | | | [...] section. | | | | | involving conf[place] | | | | | | coronary artery of | | | | | | [place] heart without | | | | | [...] | | | | | by [facility] [place] [employer], | | | | | | [facility] ([id number]), | | | | | | commissioning editor Tate Lozano | | | | [...] + + | Coronary artery disease involving [place] coronary artery of [place] heart without | | angina pectoris - [...]
--- OUTSIDE RECORDS SUMMARY | ~2020-05-18 | XMS | Encounter Summary ---
Demographics + + + | Address | [address] | | | [place] [address] | + + + | Home Phone | | + + + | Preferred Language | Unknown | + + + | Marital Status | | + + + | Congregational Affiliation | 1041 | + + + | Race | White | + + + | Ethnic Group | Not or | + + + Author + + + | Author | [facility] | | | and [place] | + + + | Organization | [facility] | | | and [place] | + + + | Address | Unknown | + + + | Phone | Unavailable | + + + Support + + + + + | Name | Relationship | Address | Phone | + + + + + | Tera Mccarthy | ECON | [place], [place] | | | | | [address] | | + + + + + | Alicia Mccarthy | ECON | [address] | | | | | [place] [address] | | + + + + + Care Team Providers + +------+ + | Care Elementary School Librarian Name | Role | Phone | + +------+ + PCP | Unavailable | + +------+ + Encounter Details +--------+ + + + + | Date | Type | Department | Care Team | Description | +--------+ + + + + | 05/26/ | Hospital | [facility] | Viktor Crisostomo | | | 2004 | Encounter | MED CTR GENERIC OP | MD [address] [address] [address] | | | | | CONV DEPT [address] | [place], [place] | | | | | [place], | [address] | | | | | [place] [address] | | | | | | [phone] | | | +--------+ + + + [...] [address] | | | | | | [place] [address] | | | | | | [phone] | | | | | | | | +--------+---------+ + + + documented as of this encounter Visit Diagnoses Not on filedocumented in this encounter"
--- OUTSIDE RECORDS SUMMARY | ~2020-05-18 | XMS | Encounter Summary ---
Demographics + + + | Address | [address] | | | [place] [address] | + + + | Home Phone | | + + + | Preferred Language | Unknown | + + + | Marital Status | | + + + | Anglican Affiliation | 1041 | + + + | Race | White | + + + | Ethnic Group | Not or | + + + Author + + + | Author | [facility] | | | and [place] | + + + | Organization | [facility] | | | and [place] | + + + | Address | Unknown | + + + | Phone | Unavailable | + + + Support + + + + + | Name | Relationship | Address | Phone | + + + + + | Tera Mccarthy | ECON | [place], [place] | | | | | [address] | | + + + + + | Alicia Mccarthy | ECON | [address] | | | | | [place] [address] | | + + + + + Care Team Providers + +------+ + | Care Window Covering Sales Consultant Name | Role | Phone | + +------+ + | Matias Muñoz MD | PCP | | + +------+ + Encounter Details +--------+ + + + + | Date | Type | Department | Care Team | Description | +--------+ + + + + | 07/02/ | Orders Only | [facility] | Nasir Lim, | | | 2015 | | CARDIOLOGY [place] | [address] | | | | | [place] [address] | [place] [address] | | | | | [place], [place] | [phone] | | | | | [address] | | | | | | [phone] | | | +--------+ + + + [...] [address] | | | | | | [place] [address] | | | | | | [phone] | | | | | | | | +--------+---------+ + + + documented as of this encounter Procedures + +--------+ + + + | Procedure Name | Priori | Date/Time | Associated Diagnosis | Comments | | | ty | | | | + +--------+ + + + | VAS CAROTID DUPLEX | Routin | 07/02/2016 | | Results for this | | BILATERAL | e | 10:28 AM | | procedure are in the | | | | PDT | | results section. | + +--------+ + + + documented in this encounter Results VAS Carotid Duplex Bilateral (07/02/2016 10:28 AM PDT) + + | Specimen | + + | | + + + + + | Impressions | Performed At | + + + | 1. Minimal disease of the right internal carotid artery. S/P CEA. | | | 2. Minimal disease of the left internal carotid artery. S/P CEA. | | + + + + + + | Narrative | Performed At | + + + | Patient Name: ROBBIE MCCARTHY Date of : 1940 | | | Performing Physician: Nasir Lim MD, | | | FACC, FACP, FASNC | | | | | | INDICATIONS Hx of bilateral CEA CONCLUSIONS | | | 1. Minimal disease of the right internal carotid artery. | | | S/P CEA. 2. Minimal disease of the left internal carotid artery. S/P | | | CEA. FINDINGS -------- Right CCA: The right common carotid | | | artery is patent and demonstrates mild atherosclerotic plaque in the | | | common carotid artery corresponding with a 1-49% right common carotid | | | stenosis. Right ICA: The right internal carotid artery demonstrates | | | minimal atherosclerotic plaque corresponding with a 1-15% right | | | internal carotid stenosis. Right ECA: The right external carotid | | | artery is patent with no evidence of stenosis. Right Vertebral: The | | | right vertebral artery demonstrates antegrade flow. Right Subclavian | | | Artery: Doppler window filling within the right subclavian artery | | | waveform suggests 1-19% stenosis. Left CCA: The left common carotid | | | artery demonstrates mild atherosclerotic plaque in the common | | | carotid artery corresponding with 1-49% stenosis Left ICA: The left | | | internal carotid artery demonstrates mild atherosclerotic plaque | | | corresponding with a 1-15% left internal carotid stenosis. Left ECA: | | | Minimal intimal thickening in the left external carotid artery. Left | | | Vertebral: The left vertebral artery demonstrates antegrade flow. | | | Left Subclavian Artery: Doppler window filling within the left | | | subclavian artery waveform suggests 1-19% stenosis. MEASUREMENTS | | | CCA AC: 6 deg CCA ED: 19.38 cm/s CCA ED: | | | 13.66 cm/s CCA ED: 11.48 cm/s CCA ED: 11.33 cm/s CCA PS: | | | 89.51 cm/s CCA PS: 56.77 cm/s CCA PS: 60.03 cm/s CCA PS: | | | 77.90 cm/s ICA/CCA ED: 0.84 ICA/CCA ED: 2.41 ICA/CCA PS: | | | 0.55 ICA/CCA PS: 0.99 ECA AC: 45 deg ECA AC: 49 deg ECA | | | ED: 19.42 cm/s ECA ED: 11.05 cm/s ECA PS: 118.35 cm/s ECA | | | PS: 83.18 cm/s ICA AC: 50 deg ICA AC: 52 deg ICA AC: 21 | | | deg ICA AC: 52 deg ICA AC: 54 deg ICA AC: 59 deg ICA ED: | | | 16.35 cm/s ICA ED: 27.35 cm/s ICA ED: 17.94 cm/s ICA ED: | | | 20.43 cm/s ICA ED: 6.77 cm/s ICA ED: 9.90 cm/s ICA PS: | | | 49.33 cm/s ICA PS: 77.87 cm/s ICA PS: 48.66 cm/s ICA PS: | | | 54.24 cm/s ICA PS: 37.81 cm/s ICA PS: 59.07 cm/s SUBC PS: | | | 56.44 cm/s SUBC PS: 120.28 cm/s VERT ED: 13.00 cm/s VERT ED: | | | 5.89 cm/s VERT PS: 48.68 cm/s VERT PS: 20.67 cm/s | | | Metal Cut Off Saw Operator: Authenticated by: Nasir Lim MD, FACC, FACP, | | | FASNC Report Date/Time: -- [id number] | | + + + + + | Procedure Note | + + | Alfred Landry Conversion - 05/17/2019 8:54 PM PDT Patient Name: ROBBIE MCCARTHY | | of : 1940 Performing Physician: Nasir Lim MD, FAC, | | FACP, | | FASNC INDICATIONS--------- | | --Hx of bilateral CEA CONCLUSIONS 1. Minimal disease of the right internal | | carotid artery. S/P CEA.2. Minimal disease of the left internal carotid artery. S/P CEA. | | FINDINGS--------Right CCA: The right common carotid artery is patent and demonstrates | | mild atherosclerotic plaque in the common carotid artery corresponding with a 1-49% | | right common carotid stenosis.Right ICA: The right internal carotid artery demonstrates | | minimal atherosclerotic plaque corresponding with a 1-15% right internal carotid | | stenosis.Right ECA: The right external carotid artery is patent with no evidence of | | stenosis.Right Vertebral: The right vertebral artery demonstrates antegrade flow.Right | | Subclavian Artery: Doppler window filling within the right subclavian artery waveform | | suggests 1-19% stenosis.Left CCA: The left common carotid artery demonstrates mild | | atherosclerotic plaque in the common carotid artery corresponding with 1-49% | | stenosisLeft ICA: The left internal carotid artery demonstrates mild atherosclerotic | | plaque corresponding with a 1-15% left internal carotid stenosis.Left ECA: Minimal | | intimal thickening in the left external carotid artery.Left Vertebral: The left | | vertebral artery demonstrates antegrade flow.Left Subclavian Artery: Doppler window | | filling within the left subclavian artery waveform suggests 1-19% stenosis. | | MEASUREMENTS CCA AC: 6 degCCA ED: 19.38 cm/sCCA ED: 13.66 cm/sCCA ED: | | 11.48 cm/sCCA ED: 11.33 cm/sCCA PS: 89.51 cm/sCCA PS: 56.77 cm/sCCA PS: 60.03 | | cm/sCCA PS: 77.90 cm/Jim/CCA ED: 0.84ICA/CCA ED: 2.41ICA/CCA PS: 0.55ICA/CCA | | PS: 0.99ECA AC: 45 degECA AC: 49 degECA ED: 19.42 cm/sECA ED: 11.05 cm/sECA | | PS: 118.35 cm/sECA PS: 83.18 cm/Jim AC: 50 degICA AC: 52 degICA AC: 21 degICA | | AC: 52 degICA AC: 54 degICA AC: 59 degICA ED: 16.35 cm/Jim ED: 27.35 cm/Jim | | ED: 17.94 cm/iJm ED: 20.43 cm/Jim ED: 6.77 cm/Jim ED: 9.90 cm/Jim PS: | | 49.33 cm/Jim PS: 77.87 cm/Jim PS: 48.66 cm/Jim PS: 54.24 cm/Jim PS: 37.81 | | cm/Jim PS: 59.07 cm/sSUBC PS: 56.44 cm/sSUBC PS: 120.28 cm/sVERT ED: 13.00 | | cm/sVERT ED: 5.89 cm/sVERT PS: 48.68 cm/sVERT PS: 20.67 cm/s Metal Cut Off Saw Operator: | | DHAuthenticated by: Nasir Lim MD, FACC, FACP, FASNCReport Date/Time: -- | | [id number] IMPRESSION: 1. Minimal disease of the right internal carotid | | artery. S/P CEA.2. Minimal disease of the left internal carotid artery. S/P CEA. | |CCA ED: 19.38 cm/s | |CCA ED: 13.66 cm/s | |CCA ED: 11.48 cm/s | |CCA ED: 11.33 cm/s | |CCA PS: 89.51 cm/s | |CCA PS: 56.77 cm/s | |CCA PS: 60.03 cm/s | |CCA PS: 77.90 cm/s | |ICA/CCA ED: 0.84 | |ICA/CCA ED: 2.41 | |ICA/CCA PS: 0.55 | |ICA/CCA PS: 0.99 | |ECA AC: 45 deg | |ECA AC: 49 deg | |ECA ED: 19.42 cm/s | |ECA ED: 11.05 cm/s | |ECA PS: 118.35 cm/s | |ECA PS: 83.18 cm/s | |ICA AC: 50 deg | |ICA AC: 52 deg | |ICA AC: 21 deg | |ICA AC: 52 deg | |ICA AC: 54 deg | |ICA AC: 59 deg | |ICA ED: 16.35 cm/s | |ICA ED: 27.35 cm/s | |ICA ED: 17.94 cm/s | |ICA ED: 20.43 cm/s | |ICA ED: 6.77 cm/s | |ICA ED: 9.90 cm/s | |ICA PS: 49.33 cm/s | |ICA PS: 77.87 cm/s | |ICA PS: 48.66 cm/s | |ICA PS: 54.24 cm/s | |ICA PS: 37.81 cm/s | |ICA PS: 59.07 cm/s | |SUBC PS: 56.44 cm/s | |SUBC PS: 120.28 cm/s | |VERT ED: 13.00 cm/s | |VERT ED: 5.89 cm/s | |VERT PS: 48.68 cm/s | |VERT PS: 20.67 cm/s | | | |Metal Cut Off Saw Operator: ARMIN | |Authenticated by: Nasir Lim MD, FACC, FACP, [facility] | |Report Date/Time: -- [id number] | | | |IMPRESSION: | |1. Minimal disease of the right internal carotid artery. S/P CEA. | |2. Minimal disease of the left internal carotid artery. S/P CEA. | + + documented in this encounter Visit Diagnoses Not on filedocumented in this encounter"
--- OUTSIDE RECORDS SUMMARY | ~2020-05-18 | XMS | Encounter Summary ---
Demographics + + + | Address | [address] | | | [place] [address] | + + + | Home Phone [...] + | Author | [facility] | | | and Danielana [...] [place], [place] | | | | | [address] | | + + + + + | Alicia Mccarthy | ECON | [address] | | | | | [place] [address] | | + + + + + Care Team Providers + +------+ + | Care Billposter Name | Role | Phone | + +------+ + | Brittany Meehan MD | PCP | | + +------+ + Reason for Visit +--------+--------+ + | Reason | Onset | Comments | | | Date | | +--------+--------+ + | Other | 10/12/ | | | | 2019 | | +--------+--------+ + Encounter Details +--------+ + + + + | Date | Type | Department | Care Team | Description | +--------+ + + + + | 10/12/ | Telephone | [facility] | Cornel Sibley | Other | | 2020 | | [facility] | MD [address] | | | | | [address] | [address] | | | | | [place], [place] | [place] [address] | | | | | [address] | [phone] | | | | | [phone] | | | +--------+ + + + [...] Notes Telephone Encounter - Leola Norton - 10/12/2019 11:01 AM PSTLeft msg for pt to call b ack to schedule ablation f/u. Leola Norton docu mented in this encounter Plan of Treatment +--------+---------+ + + + | Date | Type | Specialty | Care Team | Description | +--------+---------+ + + + | 06/25/ | Office | Cardiology | Kim Connie | | | 2019 | Visit | | [address] | | | | | | [address] [place] | | | | | | [place] [address] | | | | | | [phone] | | | | | | | | +--------+---------+ + + + documented as of this encounter Visit Diagnoses Not on filedocumented in this encounter"
--- OUTSIDE RECORDS SUMMARY | ~2020-05-18 | XMS | Encounter Summary ---
Demographics + + + | Address | [address] | | | [place] [address] | + + + | Home Phone | | + + + | Preferred Language | Unknown | + + + | Marital Status | | + + + | Scientology Affiliation | 1041 | + + + | Race | White | + + + | Ethnic Group | Not or | + + + Author + + + | Author | [facility] | | | and [place]ana | + + + | Organization | [facility] | | | and [place] | + + + | Address | Unknown | + + + | Phone | Unavailable | + + + Support + + + + + | Name | Relationship | Address | Phone | + + + + + | Tera Mccarthy | ECON | [place], [place] | | | | | [address] | | + + + + + | Alicia Mccarthy | ECON | [address] | | | | | [place] [address] | | + + + + + Care Team Providers + +------+ + | Care Operations Officer Trust Department Name | Role | Phone | + [...] + + | 06/28/ | Telephone | [facility] | Connie Alvarez | Medication Question | | 2018 | | CARDIOLOGY [place] | [address] | | | | | [address] | [place] | | | | | [address] | [place] [address] | | | | | [place] | [phone] | | | | | [address] | | | | | | [phone] | | | +--------+ + + + [...] set up for heart monitor for in [place], and his dizzin ess may be related [...] | | | | | [place] [address] | | | | | | [phone] | | | | | | | | +--------+---------+ + + + documented as of this encounter Visit Diagnoses Not on filedocumented in this encounter"
--- OUTSIDE RECORDS SUMMARY | ~2020-05-18 | XMS | Encounter Summary ---
Demographics + + + | Address | [address] | | | [place] [address] | + + + | Home Phone | | + + + | Preferred Language | Unknown | + + + | Marital Status | | + + + | Yazdanism Affiliation | [id number] | + + + | Race | White | + + + | Ethnic Group | Not or | + + + Author + + + | Author | [facility] | | | and [place] | + + + | Organization | [facility] | | | and [place] | + + + | Address | Unknown | + + + | Phone | Unavailable | + + + Support + + + + + | Name | Relationship | Address | Phone | + + + + + | Tera Mccarthy | ECON | [place] | | | | | [address] | | + + + + + | Alicia Mccarthy | ECON | [address] | | | | | [place] [address] | | + + + + + Care Team Providers + +------+ + | Care Trash Collector Truck Driver Name | Role | Phone | + +------+ + | Brittany Meehan MD | PCP | | + +------+ + Reason for Visit + + + | Reason | Comments | + + + | Shortness of Breath | pt d/c today | + + + Auth/Cert +--------+--------+ + [...] + + + + | 05/30/ | Hospital | [facility] | Josesito Brown, | Paroxysmal | | 2019 - | Encounter | [facility] | [address] | tachycardia (HCC) | | | | CARE FLOOR [address] | [place] [address] | suspected based on | | 06/01/ | | [address] | [phone] | history (Primary | | 2019 | | [place], [place] | | Dx); Acute renal | | | | [address] | Patricia Stanley, | injury (HCC); | | | | [phone] | [address] | Tachyarrhythmia; | | | | | [place] [address] | Coronary artery | | | | | [phone] | disease involving | | | | | | coronary bypass | | | | | Mary Jo Moran MD | graft of [place] | | | | | [address] | heart without angina | | | | | [place] [address] | pectoris | | | | | [phone] | | | | | | | | | | | | Tate Montesinos MD | | | | | | [address] | | | | | | [place] [address] | | | | | | [phone] | | | | | | | [...] + + + | Blood Pressure | 136/70 | 06/01/2019 3:26 PM | | | | | PDT | | + + + + + | Pulse | 67 | 06/01/2019 3:26 PM | | | | | PDT | | + + + + + | Temperature | 36.4 C (97.6 F) | 06/01/2019 3:26 PM | | | | | PDT | | + + + + + | Respiratory Rate | 16 | 06/01/2019 3:26 PM | | | | | PDT | | + + + + + | Oxygen Saturation | 95% | 06/01/2019 3:26 PM | | | | | PDT | | + + + + + | Inhaled Oxygen | - | - | | | Concentration | | | | + + + + + | Weight | 76.2 kg (168 lb 1.6 | 05/31/2019 4:20 AM | | | | oz) | PDT | | + + + + + | Height | 175.3 cm (5' 9") | 05/30/2019 9:49 PM | | | | | PDT | | + + + + + | Body Mass Index | 24.82 | 05/30/2019 9:49 PM | | | | | PDT [...] Discharge Summaries Mary Jo Moran MD - 06/01/2019 3:22 PM PDTFormatting of this note might be different fro m the original. Service: Hospitalist Discharge Summary Date of Admission: 05/30/2019 Date of Discharge: 06/01/2019 Discharge Provider: Mary Jo Moran MD Treatment Team: Mary Jo Moran MD; Shannan Yu DO Discharge Diagnoses: Principal Problem: SVT (supraventricular tachycardia) Active Problems: Tachyarrhythmia Coronary artery disease involving coronary bypass graft History of CVA in adulthood Dyslipidemia Resolved Problems: * No resolved hospital problems. * Significant Diagnostic Studies: Renal ultrasound showed the following: IMPRESSION: 1. No hydronephrosis. 6 mm nonobstructing calculus within the right interpolar region. 2. Abdominal aortic aneurysm measuring 3.7 cm in diameter. HOSPITAL COURSE: This is a 79-year-old male with a recent history of stroke, has had recurrent admissio ns for asymptomatic tachycardia that you would have noted at home on routine measurements of his blood pressure and vital signs. It was not obvious on initial presentations to the ER as he would be in sinus rhythm. It was thought that he could have been using a faulty devic e at home. However during his stay, later in the course, he should started showing signs of SVT. Cardiology was consulted. Initially it was planned for outpatient follow-up with a H olter monitor but that was not necessary any further. He was started on metoprolol XL and w ould require close outpatient follow-up with cardiology. Incidentally abdominal aortic aneu rysm was also noted which needs outpatient follow-up. There was also a 6 mm asymptomatic no nobstructing calculi of the right interpolar region that was noted on renal ultrasound that was initially done for acute kidney injury. Acute kidney injury resolved at a later time wi th IV hydration. Urology was consulted and recommended outpatient follow-up at this time. Patient will be discharged home today with close follow-up with PMD. Urine drug screen and T SH have been normal. Vital Signs: BP 110/73 | Pulse 120 | Temp 36.4 C (97.5 F) (Oral) | Resp 16 | Ht 1.753 m (5' 9") | Wt 76.2 kg (168 lb 1.6 oz) | SpO2 94% | BMI 24.82 kg/m Patient is awake, alert, oriented to [...] harge summary. Discharge Medications New Medications Details predniSONE 20 mg tablet Take 1 tablet by mouth Daily for 4 days. aka: DELTASONE Start: 06/02/2019 Changed Medications Details metoprolol succinate 50 mg 24 hr tablet Take 1 tablet by mouth Daily for 30 days. What changed: medication strength how much to take aka: TOPROL-XL Unchanged Medications Details clopidogrel 75 mg tablet Take 1 tablet by mouth Daily. aka: PLAVIX ezetimibe 10 mg tablet Take 1 tablet by mouth nightly for 30 days. aka: ZETIA fluticasone-salmeterol 250-50 mcg/puff diskus inhaler Inhale 1 puff into the lungs 2 (two) times daily. aka: SAMSON GENAO INHMADHAV losartan 50 mg tablet Take 0.5 tablets by mouth Daily. aka: YASMIN documented in this en counter Medications at Time of Discharge + + + +---------+ + + | Medication | Sig | Dispensed | Refills | Start | End Date | | | | | | Date | | + + + +---------+ + + | | as needed Takes as | | 0 | /02/12 | | | fluticasone-salmeter | needed. | [...] documented as of this encounter Progress Notes Socoror Wan RN - 06/01/2019 6:08 PM PDTDischarge instructions given to patient and s on at bedside. Patient states understanding and is leaving private vehicle with son. He will follow up with cardiology and Dr. Whitman outpatient. Socorro Quiros RN - 06/01/2019 10:21 AM PDTTelemetry not ified me that patient's HR increased from 60s to 130s. I spoke with Dr. Moran, stat ekg o rdered. I spoke with CM who was speaking with patient about an emotional matter. He is feeli ng a little emotional right now. He also reports some burning in his chest. Electronically s igned by Socorro Wan RN at 06/01/2019 10:23 AM Rubén Soriano RN - 4:34 AM PDTNo acute changes during shift. Chart check complete Mary Jo Britton MD - 05/31/2019 9:45 PM PDT Service: Hospitalist Progress Note Hospital Day: LOS: 0 days SUBJECTIVE This morning, patient appears to be anxious. He had his home device at bedside. We ran a controlled study and figured out that he is confusing mostly his systolic blood pressure # 2 be his heart rate. In any case he is wrist blood pressure monitor is not accurately corre lating with his actual blood pressure. He is apparently more anxious after the stroke and h as had multiple ER visits and short admissions therefore. His lightheadedness and dizziness could be related to hyperventilation and panic attack. I discussed calming methods and luzma se outpatient follow-up with his primary care doctor. For now we will continue with the tel emetry monitoring in the hospital and a Holter monitor for outpatient. Patient mentions that he has not been having enough by mouth fluid intake. Most likely huyen t the reason behind his worsening renal function. Patient also has a AAA outpatient follow- up. He has a 6 mm nonobstructing renal stone. Confirmed with urology. Needs outpatient fo llow-up in no acute intervention at this time. He was also started on losartan after his st roke and that could be also aggravating his acute kidney injury. IV fluids to continue on l osartan held for the time being. Scheduled Medications aspirin 81 mg Oral Daily budesonide-formoterol 2 puff Inhalation RT BID clopidogrel 75 mg Oral Daily ezetimibe 10 mg Oral Nightly heparin 5,000 Units Subcutaneous 2 times per day metoprolol tartrate 12.5 mg Oral BID predniSONE 40 mg Oral Daily Continuous Infusions sodium chloride 0.9% 100 mL/hr at 05/31/19 1406 OBJECTIVE Vital Signs: Vitals with Comments 05/31/2019 05/31/2019 05/31/2019 05/31/2019 SYSTOLIC 127 118 126 119 DIASTOLIC 66 63 60 58 BP Comments - - - - Pulse 71 58 69 70 Temp 98.6 97.5 97.8 98.2 Resp 18 18 16 16 Resp Comments - - - - Weight - - - - Height - - - - SPO2 93 97 94 95 SPO2 Comments - - - - BMI - - - - Pain Score - - - - Pain Loc - - - - Pain Edu? - - - - Patient is awake, alert, oriented to time, place and person Skin: Warm and supple Neck: No JVD Chest: Normal vesicular breath sounds, good air entry bilaterally CVS: S1S2 audible, no murmurs heard Abdomen: Soft, non tender, normal bowel sounds, no organomegaly Extremities: No pedal edema, clubbing or cyanosis, There is tenderness noted over the 2nd l eft metacarpophalangeal joint. Neurologic examination: No focal sensory or motor deficits Back examination: No CVA tenderness, no spinal tenderness REVIEW OF SYSTEMS: Denies any headache, blurry vision, nausea, vomiting, fever, chest pain, diarrhea or dysuria. DATA CBC: Lab Results Component Value Date WBC 7.64 05/30/2019 RBC 5.20 05/30/2019 HGB 14.8 05/30/2019 HCT 45.3 05/30/2019 MCV 87.0 05/30/2019 PLT 233 05/30/2019 BMP: Lab Results Component Value Date NA 143 05/30/2019 K 4.2 05/30/2019 CL 109 05/30/2019 CO2 27 05/30/2019 BUN 22 05/30/2019 CREA 1.68 (H) 05/30/2019 EGFR 40 (L) 05/30/2019 GLU 113 (H) 05/30/2019 Last echocardiogram in 17 May 2019 showed the following: There is moderate increased left ventricular wall thickness. The left ventricular ejection fraction is 75%. Aortic valve area by continuity equation is 1.87 cm2. Ascending aorta is 4.37 cm. X-ray of the left hand fingers showed the followin. No acute fracture or dislocation. 2. Nonspecific soft tissue swelling along the PIP joint of the 2nd Digit. Uric acid level 5.1 PROBLEM LIST Principal Problem: SVT (supraventricular tachycardia) Active Problems: Tachyarrhythmia Coronary artery disease involving coronary bypass graft History of CVA in adulthood Dyslipidemia Resolved Problems: * No resolved hospital problems. * ASSESSMENT & PLAN Principal problem: Panic attacks about suspected SVTs post stroke: No such episodes have been noted during his multiple visits to the hospital. Continue telemetry monitoring. Plan for Holter monitor s et up as an outpatient with cardiology. Possible discharge in a.m. Tomorrow.Continue with o ral metoprolol. Secondary diagnoses: Ischemic stroke: Continue with baby aspirin and Plavix and Zetia. Patient cannot take stat in because of muscle aches. Asthma/COPD: Not in exacerbation. Continue with Symbicort. Heparin and SCDs for DVT prophylaxis. Left index finger metacarpal phalangeal joint swelling: Most likely gout. Colchicine may b e contraindicated because of her renal failure. Will advise oral prednisone for now. Disposition: Yet to be seen how he does with the current management. Code Status: Full Code Mary Jo Moran MD 05/31/2019 21:46 documented in this en counter H&P Notes Patricia Stanley, DO - 05/30/2019 11:36 PM PDTFormatting of this note might be different from t dora original. [facility] Service: Hospitalist Admission History & Physical Date of Admission: 05/30/2019 Primary Care Physician: Brittany Meehan MD Reason for Admission: Possible SVT/tachyarrhythmia, history of coronary artery disease, acu te kidney injury and recent past cerebrovascular accident History obtained chart review and the patient. CHIEF COMPLAINT: Chief Complaint Patient presents with Shortness of Breath pt d/c today HISTORY OF PRESENT ILLNESS The patient is a 79 y.o. 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 Centeno no surgery suggested, arthralgia, atherosclerosis, BPH, coronary artery disease status post co ronary artery bypass 6 vessels on 2008, bilateral carotid endarterectomy 2012, dyslipidemia, hypertension, peripheral arterial disease, polycythemia vera, who presents with palpitation s, dizziness and shortness of breath at rest. Symptoms include dyspnea on exertion and tig htness in chest. Symptoms began 6 hours ago, gradually worsening since that time. Patient d enies constant cough, cough after eating, drainage from nose, dry cough, dyspnea when laying down, hemoptysis none, unresolving pneumonia and wheezing. Associated symptoms include warm ness. Patient has not had recent travel. Weight has been stable. Appetite has been unaffec shamika. Symptoms are exacerbated by any exercise. Symptoms are alleviated by rest. Active comorbid conditions include: - dysrhythmias - CAD; without angina - hypertension; essential - PVD - asthma - CVA Review of Systems Constitutional: Positive for fatigue. Negative for activity change, chills, diaphoresis and fever. HENT: Negative for congestion, ear discharge, ear pain, hearing loss, nosebleeds and sinus pressure. Eyes: Negative for redness and visual disturbance. Respiratory: Positive for chest tightness and shortness of breath. Negative for apnea, coug h and choking. Cardiovascular: Negative for chest pain, palpitations and leg swelling. Gastrointestinal: Negative for abdominal distention, abdominal pain, blood in stool, consti pation, diarrhea, nausea and vomiting. Endocrine: Negative for cold intolerance, heat intolerance, polydipsia, polyphagia and poly uria. Genitourinary: Negative for difficulty urinating, dysuria, flank pain, frequency, genital s ores and hematuria. Musculoskeletal: Positive for arthralgias. Negative for back pain, gait problem and neck pa in. Skin: Negative for color change, pallor, rash and wound. Allergic/Immunologic: Negative for environmental allergies and immunocompromised state. Neurological: Positive for light-headedness. Negative for dizziness, seizures, facial asymm etry, speech difficulty, numbness and headaches. Hematological: Does not bruise/bleed easily. Psychiatric/Behavioral: Negative for agitation, behavioral problems, confusion, decreased c oncentration and hallucinations. The patient is not nervous/anxious. 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 Hyperlipidemia Hyperlipidemia Hypertension Myalgia s/p lovastatin + meningitis Nasal and sinus discharge Occlusion of carotid artery PAD (peripheral artery disease) ([facility]) Polycythemia vera ([facility]) 2016 Renal stone Sciatica Sinusitis Chronic Stroke ([facility]) Trigeminy Ventricular pre-excitation PAST SURGICAL HISTORY Past Surgical History: Procedure Laterality Date COLONOSCOPY CORONARY ARTERY BYPASS GRAFT 2009 6 vessel/ RLE veing harvest CORONARY ARTERY BYPASS GRAFT EYE SURGERY L and R CEA 2010 NASAL SEPTUM SURGERY OTHER SURGICAL HISTORY CATARACT EXTRACTION TONSILLECTOMY AND ADENOIDECTOMY ALLERGIES Allergies Allergen Reactions Penicillins Rash Statins Other (See Comments) Cramping in the legs, muscle weakness Pravastatin Other (See Comments) HOME MEDICATIONS Prior to Admission medications Medication Sig Start Date End Date Taking? Authorizing Provider clopidogrel (PLAVIX) 75 mg tablet Take 1 tablet by mouth Daily. 05/18/19 Daron Draper MD ezetimibe (ZETIA) 10 mg tablet Take 1 tablet by mouth nightly for 30 days. 05/30/19 06/29/19 Mary Jo Moran MD fluticasone-salmeterol (ADVAIR, WIXELA INHUB) 250-50 mcg/puff diskus inhaler Inhale 1 puff into the lungs 2 (two) times daily. 11/28/18 Historical Provider, losartan (COZAAR) 50 mg tablet Take 0.5 tablets by mouth Daily. 05/23/19 Connie Varela Maria Esther wagoner, COUGAR HUNTER metoprolol succinate (TOPROL-XL) 25 mg 24 hr tablet Take 1 tablet by mouth Daily. 05/20/19 Daron Draper MD SOCIAL HISTORY reports that he has never smoked. He has quit using smokeless tobacco. He reports that he drinks alcohol. He reports that he does not use drugs. FAMILY HISTORY family history includes * in his brother and mother; Coronary artery disease in his mother; High cholesterol in his mother; Hypertension in his mother; Kidney disease in his brother. PHYSICAL EXAM BP 120/56 | Pulse 65 | Temp 36.8 C (98.2 F) (Oral) | Resp 17 | Ht 1.753 m (5' 9") | Wt 78 kg (172 lb) | SpO2 94% | BMI 25.40 kg/m Physical Exam Constitutional: He is oriented to person, place, and time. He appears well-developed. No di stress. HENT: Head: Normocephalic and atraumatic. Right Ear: External ear normal. Left Ear: External ear normal. Nose: Nose normal. Mouth/Throat: No oropharyngeal exudate. Eyes: Pupils are equal, round, and reactive to light. Conjunctivae and EOM are normal. Righ t eye exhibits no discharge. Left eye exhibits no discharge. No scleral icterus. Neck: Normal range of motion. Neck supple. Cardiovascular: Normal rate, regular rhythm and normal heart sounds. No murmur heard. Pulmonary/Chest: Effort normal and breath sounds normal. No respiratory distress. He has no wheezes. He has no rales. He exhibits no tenderness. Abdominal: Soft. Bowel sounds are normal. He exhibits no distension. There is no tenderness . Musculoskeletal: Normal range of motion. He exhibits no edema, tenderness or deformity. Neurological: He is alert and oriented to person, place, and time. No cranial nerve deficit or sensory deficit. He exhibits normal muscle tone. Coordination normal. Left facial droop Skin: Skin is warm and dry. No rash noted. He is not diaphoretic. No erythema. Psychiatric: He has a normal mood and affect. His behavior is normal. Judgment and thought content normal. DATA Recent Results (from the past 24 hour(s)) Lactic Acid Result Value Ref Range Lactate, Serum 1.2 0.4 - 2.0 mmol/L CBC with Differential Result Value Ref Range WBC 7.64 3.80 - 11.00 K/uL RBC 5.20 4.20 - 5.70 M/uL Hemoglobin 14.8 13.2 - 17.0 g/dL Hematocrit 45.3 39.0 - 50.0 % MCV 87.0 80.0 - 100.0 fl MCH 28.4 27.0 - 34.0 pg MCHC 32.7 32.0 - 35.5 g/dL RDW-SD 48.6 37 - 53 fl Platelet Count 233 150 - 400 K/uL MPV 9.7 fl Diff Type AUTOMATED % Neutrophils 76.05 % % Lymphocytes 12.32 % Monocyte % 9.18 % Eosinophils % 1.85 % Basophils % 0.60 % Neutrophils, Absolute 5.81 1.90 - 7.40 K/uL Absolute Lymphocytes 0.94 (L) 1.00 - 3.90 K/uL Absolute Monocytes 0.70 0.00 - 0.80 K/uL Eosinophils, Absolute 0.14 0.00 - 0.50 K/uL Basophils, Absolute 0.05 0.00 - 0.10 K/uL Comprehensive Metabolic Panel Result Value Ref Range Na 143 135 - 145 mmol/L K 4.2 3.5 - 4.9 mmol/L Cl 109 99 - 109 mmol/L CO2 27 23 - 32 mmol/L Anion Gap 11 5 - 20 mmol/L Glucose 113 (H) 65 - 99 mg/dL BUN 22 8 - 25 mg/dL Creatinine 1.68 (H) 0.70 - 1.30 mg/dL BUN/Creatinine Ratio 13 Calcium 8.9 8.5 - 10.5 mg/dL Protein, Total 6.1 (L) 6.3 - 8.2 g/dL Albumin 3.9 3.3 - 4.8 g/dL Globulin 2.2 1.3 - 4.9 g/dL A/G Ratio 1.8 1.0 - 2.4 BILIRUBIN, TOTAL 0.5 0.1 - 1.5 mg/dL ALK PHOS 92 35 - 115 U/L AST 17 10 - 45 U/L ALT 8 (L) 10 - 65 U/L Estimated GFR 40 (L) >60 mL/min/1.73m2 Troponin I Result Value Ref Range Troponin T 0.052 (H) 0.00 - 0.04 ng/mL Urinalysis With Microscopic Result Value Ref Range Color, UA YELLOW Clarity, UA CLEAR Specific [place], Urine 1.025 1.002 - 1.030 Leukocyte esterase, UA NEGATIVE NEG Nitrite, UA NEGATIVE NEG Urobilinogen, Ur NORMAL <1.1 mg/dL Protein, Urine (mg/dL) NEGATIVE NEG mg/dL pH, Urine 5.0 5.0 - 8.0 Blood, UA NEGATIVE NEG Ketones, UA NEGATIVE NEG mg/dL Bilirubin, UA NEGATIVE NEG Glucose, Ur NEGATIVE NEG mg/dL WBC UA 0-2 0 - 5 /hpf RBC UA 0-2 0 - 2 /hpf SQUAMOUS EPITHELIAL UA 3-5 /lpf BACTERIA UA NONE SEEN NONE MUCUS UA 1+ HYALINE CASTS UA 3-5 Drugs Of ABuse Screen, Urine (H) Result Value Ref Range Amp/Methamphetamine, Screen, Urine NEGATIVE NEG Barbiturates Screen, Urine NEGATIVE NEG Benzodiazepines Screen, Urine NEGATIVE NEG Cocaine Metabolites, Ur NEGATIVE NEG Methadone Screen, Urine NEGATIVE NEG Opiates Screen, Urine NEGATIVE NEG Phencyclidine Screen, Urine NEGATIVE NEG Tetrahydrocannabinol(THC) NEGATIVE NEG Microbiology Results (Last 14 Days by Collected Date with Culture/Sensitivity) Procedure Component Value Units Date/Time Culture, Blood [[id number]] Collected: 05/30/194 Order Status: Sent Lab Status: In process Updated: 05/30/19 455 Specimen: Peripheral Blood Culture, Blood [[id number]] Collected: 05/30/197 Order Status: Sent Lab Status: In process Updated: 05/31/19 0138 Specimen: Peripheral Blood IMAGING Xr Chest Ap Portable Result Date: 05/30/2019 CHEST PORTABLE ONE VIEW CLINICAL INFORMATION: Shortness of breath. COMPARISON: XR CHEST AP PORTABLE (05/28/2019); CHEST W/O CONTRAST (07/13/2013); CHEST PA (04/03/2013); FINDINGS: Sternot kendell and elevated left hemidiaphragm unchanged. Heart, lungs and vessels normal. No pneumoth orax, pleural effusion or adenopathy. No significant osseous abnormality. IMPRESSION: Stable sternotomy wires and elevated left hemidiaphragm. Otherwise negative chest. Signed by: Daljit prince M.D., [place] Sign Date/Time: 05/30/2019 10:[address] Brown: "EKG was done at 9:21 PM, rate 76, sinus rhythm, first-degree AV block, no nspecific ST abnormalities, EKG interpreted by myself the time of clinical encounter". ASSESSMENT & PLAN Principal Problem: SVT (supraventricular tachycardia) / Tachyarrhythmia: -Likely, noted on May 28 by ED physician, it was the reason for admission -No SVT noted in the ER at this time. Patient reported a pulse of 136 at home associated w ith a blood pressure 95/67. -Patient apparently is scheduled for a Holter monitor PCP prior to discharge on May 30 -Troponin mildly elevated on previous admission now trending down. -Echocardiogram from May 17, 2019 reviewed, mild to moderate mitral regurgitation presen t, ascending aorta is mildly dilated measuring up to 3.9 cm, EF 65 to 70% -Patient used to follow-up with Dr. Lim now follow-up with MICHAEL Jacobson -Please contact clinical fellow in the morning, patient will prefer to see on-call cardiologis t instead of Dr. Lim -We changed Toprol-XL 25 mg daily to Lopressor 12.5 twice daily with parameters -Telemetry -Will trend troponin Active Problems: Renal Failure: -Unclear etiology -Will check urinary sodium, creatinine, eosinophil -Gentle hydration -UA with microscopic and will order renal US to rule hydronephrosis. -Avoid nephrotoxic meds. -Strict I&O -Montelongo's Catheter if unable to accurate measure urine output -Nephrology to see the patient if symptom do not improved with conservative management Coronary artery disease involving coronary bypass graft: -Intolerant to statin -Lipid pane History of CVA in adulthood: -On May 13 -Continue Zetia GI and DVT Code Status: Full Code Dictation software, [employer], used which may contain errors for similar sounding words even a fter reviewed. Personal communication requested for any clarification Patricia Stanley DO 05/31/2019 3:33 documented in this encou nter Consult Notes Shannan Yu DO - 06/01/2019 2:24 PM PDTAssociated Order(s): PROVIDER TO PROVIDER CONSUL T [facility] Service: Cardiology Initial Consult Note Name of Incident Analyst: Shannan Yu DO Reason for Consultation: SVT Requesting Physician: Dr. Moran, Hospitalist History Obtained From: patient CHIEF COMPLAINT: palpitations HISTORY OF PRESENT ILLNESS: Cardiac Problem List 1. Ischemic Stroke 2. SVT 3. Coronary artery disease s/p 6 vessel CABG 2008 4. PVD s/p CEA 2009 5. HTN 6. Hyperlipidemia Non Cardiac Problem list 7. COPD Patient is a 79-year-old male with the above past medical histories for whom cardiology has been asked to consult regarding SVT. The patient had a recent CVA in April. After he was discharged from his hospitalization, he would notice his heart rates going elevated at home into the 150s. He presented to the emergency department on 05/28/2019 and 05/29/2019 for simil ar symptoms. He reports that his heart rates will go high and his blood pressure will go lo w and he will feel a warm sensation over his chest and palpitations along with some mild barbara rtness of breath. He has been observed on telemetry. The plan was to discharge him with a Holter monitor. Earlier today, he had a sustained episode of SVT and replication of the sym ptoms he was having at home. EKG from today demonstrated SVT at 124 bpm with retrograde con duction possibly related to a reentrant arrhythmia. There were no flutter waves. The patie nt spontaneously converted back to normal sinus rhythm. His metoprolol succinate was increa sed to 50 mg by mouth daily. He is feeling otherwise well. REVIEW OF SYSTEMS Constitutional: Negative for fatigue. HENT: Negative for nosebleeds. Eyes: Negative for visual disturbance. Respiratory: Negative for cough and positive for shortness of breath. Cardiovascular: see HPI Gastrointestinal: Negative for nausea, vomiting, abdominal pain and blood in stool. Genitourinary: Negative for hematuria or dysuria. Musculoskeletal: Negative for myalgias, back pain and arthralgias. Skin: Negative for color change. Neurological: Negative for dizziness, syncope and numbness. Hematological: Does not bruise/bleed easily. Psychiatric/Behavioral: The patient is nervous/anxious. 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 Hyperlipidemia Hyperlipidemia Hypertension Myalgia s/p lovastatin + meningitis Nasal and sinus discharge Occlusion of carotid artery PAD (peripheral artery disease) ([facility]) Polycythemia vera ([facility]) 2016 Renal stone Sciatica Sinusitis Chronic Stroke ([facility]) Trigeminy Ventricular pre-excitation Past Surgical History: Procedure Laterality Date COLONOSCOPY CORONARY ARTERY BYPASS GRAFT 2008 6 vessel/ RLE veing harvest CORONARY ARTERY BYPASS GRAFT EYE SURGERY L and R CEA 2010 NASAL SEPTUM SURGERY OTHER SURGICAL HISTORY CATARACT EXTRACTION TONSILLECTOMY AND ADENOIDECTOMY MEDICATIONS Home Medications Medications Prior to Admission Medication Sig Dispense Refill clopidogrel (PLAVIX) 75 [...] tablets by mouth Daily. 30 tablet 0 [DISCONTINUED] metoprolol succinate (TOPROL-XL) 25 mg 24 hr tablet Take 1 tablet by ilir th Daily. 30 tablet 0 Inhospital Medications aspirin 81 mg Oral Daily budesonide-formoterol 2 puff Inhalation RT BID clopidogrel 75 mg Oral Daily ezetimibe 10 mg Oral Nightly heparin 5,000 Units Subcutaneous 2 times per day metoprolol succinate 50 mg Oral Daily [START ON 06/02/2019] predniSONE 20 mg Oral Daily Allergies Allergies Allergen Reactions Penicillins Rash Statins [...] on file PHYSICAL EXAM Vital Signs: BP 110/73 | Pulse 120 | Temp 36.4 C (97.5 F) (Oral) | Resp 16 | Ht 1.753 m (5' 9") | Wt 76.2 kg (168 lb 1.6 oz) | SpO2 94% | BMI 24.82 kg/m Intake/Output Summary (Last 24 hours) at 06/01/2019 1425 Last data filed at 06/01/2019 1133 Gross per 24 hour Intake 2542 ml Output 1700 ml Net 842 ml Constitutional: Well-developed. Neck: No JVD present. No thyromegaly present. Cardiovascular: Regular rhythm, S1 normal and S2 normal. No murmur heard. Pulses: Carotid pulses are 2+ on the right side, and 2+ on the left side. Radial pulses are 2+ on the right side, and 2+ on the left side. Pulmonary/Chest: Effort normal and breath sounds normal. No wheezes. No rales. Sternotomy s car is well healed. Abdominal: Soft. No tenderness. Musculoskeletal: No edema. Neurological: Alert. No cranial nerve deficit. Skin: Warm and dry. DATA Recent Labs Lab 06/01/19 0945 05/30/19 2248 05/29/19 1334 05/28/19 1325 NA 144 143 142 142 K 4.3 4.2 4.3 4.3 CO2 26 27 26 24 BUN 17 22 16 15 EGFR >60 40* 51* 47* CALCIUM 8.8 8.9 8.6 8.7 MG -- -- 1.9 1.9 Recent Labs Lab 05/28/19 1325 TSH 3.630 Recent Labs Lab 05/30/19 2248 05/29/19 1334 05/28/19 1325 WBC 7.64 6.86 7.15 HGB 14.8 14.5 14.5 HCT 45.3 45.0 43.3 MCV 87.0 87.0 84.7 PLT 233 223 217 Lab Results Component Value Date CHOL 104 05/31/2019 CHOL 196 05/16/2019 TRIG 70 05/31/2019 TRIG 104 05/16/2019 LDL 59 05/31/2019 LDL 124 (H) 05/16/2019 HDL 31 (L) 05/31/2019 HDL 51 05/16/2019 TSH 3.630 05/28/2019 EK05/30/19 SVT 124 BPM with retrograde P waves, IRBBB 05/30/19 Normal sinus rhythm 76 bpm, first-degree AV block, left atrial enlargement, incomple te right bundle branch block, inferior infarct age undetermined. Last Echo: 05/17/19 There is moderate increased left ventricular wall thickness. The left ventricular ejection fraction is 75%. Aortic valve area by continuity equation is 1.87 cm2. Ascending aorta is 4.37 cm. Last cath: 06/2009 CORONARY ANGIOGRAPHY The left main is a large-caliber vessel that trifurcates, giving rise to the LAD, left circumflex artery, and a ramus intermedius branch. The left main has 60% to 70% stenosis in the distal segment. The LAD is a medium-caliber vessel that gives rise to the diagonal branches and multiple septal branches. The LAD has diffuse disease throughout the vessel. There is a 95% stenosis in the mid to distal segment of the LAD. The first diagonal branch is a medium-caliber vessel that has a 70% stenosis of the ostium. The left circumflex is a medium-caliber vessel that gives rise to 3 obtuse marginal branches. The left circumflex has a 90% stenotic lesion in the mid segment. The ramus intermedius branch is a small- to medium-caliber vessel that has no significant obstructive disease, but the ostium of the vessel appears to be involved with a significant stenosis. The RCA is a large-caliber, dominant vessel that gives rise to the right PDA, NUZHAT, and 1 RV marginal branch. The RCA has a 60% stenosis in the mid segment right at the origin of the right ventricular marginal branch. The right PDA has a 90% stenosis at the Ostium. Carotid US: AAA screening: Lower extremity US: OTHERS: ASSESSMENT & PLAN 1. SVT 2. Recent CVA 3. Coronary artery disease s/p 6 vessel CABG 2008 4. PVD s/p CEA 2009 5. HTN 6. Hyperlipidemia 7. COPD 8. Nephrolithiasis -The patient is a 79-year-old male with the above past medical histories for whom cardiolog y has been asked to consult regarding SVT. The patient has had several recent ER admissions for palpitations, shortness of breath, and a warm feeling over his chest. The plan was to send him home with an ambulatory heart monitor, however, the patient had an episode of SVT t nicolas with recurrence of his typical symptoms. The SVT was a narrow complex regular rhythm a t 124 BPM with retrograde P waves consistent with a possible reentrant tachycardia. There w ere no flutter waves. We will plan to increase his metoprolol succinate to 50 mg by mouth d aily. We discussed vagal maneuvers if symptoms recur. If he continues to have issues with SVT, can consider referral to electrophysiology. Given that his arrhythmia has been capture d on telemetry and EKG, will defer ambulatory monitoring. -The patient should follow-up with either Connie Delacruz or Dr. Lim within 4 weeks of discharge. Thank you for allowing me to participate in the care of this patient. Code Status: Full Code Primary Care Physician: MD Shannan Knowles DO 06/01/2019 Roland Olivo MD - 0 05/31/2019 7:[address] [facility] Service: Urology Initial Consult Note Reason for Consultation: LUTS and h/o Rt Renal calculus Requesting Physician: Primary Care History Obtained From: Patient and Chart review HISTORY OF PRESENT ILLNESS The patient is a 79 y.o. male with Known history of atherosclerotic coronary artery diseas e, prior history of a 6-vessel coronary bypass, as well as history of hyperlipidemia, hypert ension, myalgias, polycythemia vera, peripheral arterial disease, sciatica, and history of s troke. The patient has a longstanding history of lower urinary tract obstruction and possib le underlying BPH. He was found to have initial signs of hydronephrosis, but subsequently a ppeared to have resolved. His ultrasound findings are consistent with 6 mm right interpola r region stone for which a urology consultation was asked. REVIEW OF SYSTEMS Reviewed Past Medical History: Diagnosis Date Arthralgia ASHD [...] (HCC) Polycythemia vera (HCC) 2016 Renal stone Sciatica Sinusitis Chronic Stroke ([facility]) Trigeminy Ventricular pre-excitation Past Surgical History: Procedure [...] Prior to Admission Medication Sig Dispense Refill clopidogrel (PLAVIX) 75 [...] by mouth Daily. 30 ta blet 0 Scheduled Medications aspirin 81 mg Oral Daily budesonide-formoterol 2 puff Inhalation RT BID clopidogrel 75 mg Oral Daily ezetimibe 10 mg Oral Nightly heparin 5,000 Units Subcutaneous 2 times per day metoprolol tartrate 12.5 mg Oral BID predniSONE 40 mg Oral Daily Continuous Infusions sodium chloride 0.9% 100 mL/hr at 05/31/19 1406 PRN Medications morphine, nitroglycerin, senna Family History Problem Relation Age of Onset Coronary artery disease Mother * Mother DJD High cholesterol Mother Hypertension Mother Kidney disease Brother * Brother AAA SOCIAL HISTORY: Reviewed PHYSICAL EXAM Vital Signs: BP 126/60 | Pulse 69 | Temp 36.6 C (97.8 F) (Oral) | Resp 16 | Ht 1.753 m (5' 9") | Wt 76.2 kg (168 lb 1.6 oz) | SpO2 94% | BMI 24.82 kg/m General Appearance: Alert, cooperative, no distress, appears stated age Head: Normocephalic, without obvious abnormality, atraumatic Eyes: PERRL, conjunctiva/corneas clear, EOM's intact, fundi benign, both eyes Back: Symmetric, no curvature, ROM normal, no CVA tenderness Lungs: Clear to auscultation bilaterally, respirations unlabored Chest Wall: No tenderness or deformity Heart: Regular rate and rhythm, S1 and S2 normal, no murmur, rub or gallop Abdomen: Soft, non-tender, bowel sounds active all four quadrants, no masses, no organomegaly Extremities: Extremities normal, atraumatic, no cyanosis or edema Pulses: 2+ and symmetric all extremities Skin: Skin color, texture, turgor normal, no rashes or lesions Neurologic: CNII-XII intact, normal strength, sensation and reflexes Throughout DATA Recent Results (from the past 24 hour(s)) ECG 12 lead Result Value Ref Range VENTRICULAR RATE EKG 76 BPM ATRIAL RATE 76 BPM P-R INTERVAL 222 ms QRS DURATION 106 ms Q-T INTERVAL 354 ms Q-T INTERVAL (CORRECTED) 398 ms P WAVE AXIS 9 degrees QRS AXIS -3 degrees T AXIS 27 degrees INTERPRETATION TEXT Sinus rhythm with 1st degree A-V block Possible Left atrial enlargement Incomplete right bundle branch block Inferior infarct , age undetermined Abnormal ECG When compared with ECG of 29-MAY-2019 12:05, Inferior infarct is now Present This ECG contains Unconfirmed Interpretation Statements. See ED Record for Physician Inter pretation. Confirmed by MUSE READ ONLY, -COMPUTER ([id number]), order editor SHELBI GUERRA ([id number]) on 05/31/2019 5:0 0:15 AM Lactic Acid Result Value Ref Range Lactate, Serum 1.2 0.4 - 2.0 mmol/L CBC with Differential Result Value Ref Range WBC 7.64 3.80 - 11.00 K/uL RBC 5.20 4.20 - 5.70 M/uL Hemoglobin 14.8 13.2 - 17.0 g/dL Hematocrit 45.3 39.0 - 50.0 % MCV 87.0 80.0 - 100.0 fl MCH 28.4 27.0 - 34.0 pg MCHC 32.7 32.0 - 35.5 g/dL RDW-SD 48.6 37 - 53 fl Platelet Count 233 150 - 400 K/uL MPV 9.7 fl Diff Type AUTOMATED % Neutrophils 76.05 % % Lymphocytes 12.32 % Monocyte % 9.18 % Eosinophils % 1.85 % Basophils % 0.60 % Neutrophils, Absolute 5.81 1.90 - 7.40 K/uL Absolute Lymphocytes 0.94 (L) 1.00 - 3.90 K/uL Absolute Monocytes 0.70 0.00 - 0.80 K/uL Eosinophils, Absolute 0.14 0.00 - 0.50 K/uL Basophils, Absolute 0.05 0.00 - 0.10 K/uL Comprehensive Metabolic Panel Result Value Ref Range Na 143 135 - 145 mmol/L K 4.2 3.5 - 4.9 mmol/L Cl 109 99 - 109 mmol/L CO2 27 23 - 32 mmol/L Anion Gap 11 5 - 20 mmol/L Glucose 113 (H) 65 - 99 mg/dL BUN 22 8 - 25 mg/dL Creatinine 1.68 (H) 0.70 - 1.30 mg/dL BUN/Creatinine Ratio 13 Calcium 8.9 8.5 - 10.5 mg/dL Protein, Total 6.1 (L) 6.3 - 8.2 g/dL Albumin 3.9 3.3 - 4.8 g/dL Globulin 2.2 1.3 - 4.9 g/dL A/G Ratio 1.8 1.0 - 2.4 BILIRUBIN, TOTAL 0.5 0.1 - 1.5 mg/dL ALK PHOS 92 35 - 115 U/L AST 17 10 - 45 U/L ALT 8 (L) 10 - 65 U/L Estimated GFR 40 (L) >60 mL/min/1.73m2 Troponin I Result Value Ref Range Troponin T 0.052 (H) 0.00 - 0.04 ng/mL Urinalysis With Microscopic Result Value Ref Range Color, UA YELLOW Clarity, UA CLEAR Specific [place], Urine 1.025 1.002 - 1.030 Leukocyte esterase, UA NEGATIVE NEG Nitrite, UA NEGATIVE NEG Urobilinogen, Ur NORMAL <1.1 mg/dL Protein, Urine (mg/dL) NEGATIVE NEG mg/dL pH, Urine 5.0 5.0 - 8.0 Blood, UA NEGATIVE NEG Ketones, UA NEGATIVE NEG mg/dL Bilirubin, UA NEGATIVE NEG Glucose, Ur NEGATIVE NEG mg/dL WBC UA 0-2 0 - 5 /hpf RBC UA 0-2 0 - 2 /hpf SQUAMOUS EPITHELIAL UA 3-5 /lpf BACTERIA UA NONE SEEN NONE MUCUS UA 1+ HYALINE CASTS UA 3-5 Drugs Of ABuse Screen, Urine (H) Result Value Ref Range Amp/Methamphetamine, Screen, Urine NEGATIVE NEG Barbiturates Screen, Urine NEGATIVE NEG Benzodiazepines Screen, Urine NEGATIVE NEG Cocaine Metabolites, Ur NEGATIVE NEG Methadone Screen, Urine NEGATIVE NEG Opiates Screen, Urine NEGATIVE NEG Phencyclidine Screen, Urine NEGATIVE NEG Tetrahydrocannabinol(THC) NEGATIVE NEG Troponin I Result Value Ref Range Troponin T 0.058 (H) 0.00 - 0.04 ng/mL Lipid Panel Result Value Ref Range Cholesterol 104 <200 mg/dL Triglycerides 70 <150 mg/dL HDL 31 (L) >40 mg/dL LDL, Calculated 59 <100 mg/dL B Type Natriuretic Peptide Result Value Ref Range BNP 70.13 0 - 100 pg/mL Uric Acid Result Value Ref Range Uric Acid 5.1 3.2 - 8.6 mg/dL Troponin I Result Value Ref Range Troponin T 0.058 (H) 0.00 - 0.04 ng/mL Troponin I Result Value Ref Range Troponin T 0.048 (H) 0.00 - 0.04 ng/mL IMAGE RESULT Recent Results (from the past 360 hour(s)) XR Chest AP Portable Narrative CHEST PORTABLE ONE VIEW CLINICAL INFORMATION: Hypotension, tachycardia. COMPARISON: CHEST W/O CONTRAST (07/13/2013); CHEST PA (04/03/2013); XR CHEST 2 VIEWS (02/24/2010); FINDINGS: Heart, lungs and vessels normal. Intact median sternotomy. No pneumothorax, pleural effusion or adenopathy. No significant bone abnormality. Left axillary/chest calcification is unchanged. IMPRESSION: No acute cardiopulmonary process. Signed by: Jay Jay Castelan Tyson Sign Date/Time: 05/28/2019 1:35 PM XR Chest AP Portable Narrative CHEST PORTABLE ONE VIEW CLINICAL INFORMATION: Shortness of breath. COMPARISON: XR CHEST AP PORTABLE (05/28/2019); CHEST W/O CONTRAST (07/13/2013); CHEST PA (04/03/2013); FINDINGS: Sternotomy and elevated left hemidiaphragm unchanged. Heart, lungs and vessels normal. No pneumothorax, pleural effusion or adenopathy. No significant osseous abnormality. IMPRESSION: Stable sternotomy wires and elevated left hemidiaphragm. Otherwise negative chest. Signed by: Lakshmi Rice Gordon Sign Date/Time: 05/30/2019 10:31 PM US Renal Complete Narrative ULTRASOUND KIDNEYS AND BLADDER CLINICAL INFORMATION: Renal failure. COMPARISON: None PROCEDURE: Evaluation of the kidneys and urinary bladder. FINDINGS: Right kidney: 11.7 cm. No hydronephrosis. 6 mm echogenic focus within the interpolar region with decreased through transmission consistent with a nonobstructive calculus. Left kidney: 11.4 cm. Cystic structure within the inferior pole of the left kidney measuring approximately 2.2 cm in maximal diameter most likely represents a simple renal cortical cyst or peripelvic cysts. No hydronephrosis. No sonographically evident renal calculi. Bladder: Bilateral ureteral jets identified. Incidental note is made of a distal abdominal aortic aneurysm which measures approximately 3.7 cm in maximal diameter. IMPRESSION: 1. No hydronephrosis. 6 mm nonobstructing calculus within the right interpolar region. 2. Abdominal aortic aneurysm measuring 3.7 cm in diameter. Signed by: Jay Jay Pandey Jace Sign Date/Time: 05/31/2019 7:09 AM XR Finger Left 2 + Vw Narrative FINGER CLINICAL INFORMATION: Swelling and pain in L index finger COMPARISON: None FINDINGS: There is moderate generalized osteopenia. 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 There is moderate arthritis and narrowing of the radiocarpal joint space. There is severe osteoarthritis of the 1st MCP joint. The patient has diffuse severe PIP joint space narrowing with osteoarthritic spurring. There is moderate osteoarthritis of the DIP joint of the 3rd and 5th digit. There is soft tissue swelling of the PIP joint of the 2nd digit. IMPRESSION: 1. No acute fracture or dislocation. 2. Nonspecific soft tissue swelling along the PIP joint of the 2nd digit. Signed by: Lakshmi Elizondo Simon Sign Date/Time: 05/31/2019 2:34 PM PROBLEM LIST Patient Active Problem List Diagnosis Cough variant asthma Hay fever Coronary artery disease involving [place] coronary artery of [place] traverse heart Nasal and sinus discharge Sciatica Mixed hyperlipidemia Trigeminy Myalgia Glucose intolerance (impaired glucose tolerance) BPH without urinary obstruction Chronic cough Bronchiectasis Bilateral carotid bruits History of CEA (carotid endarterectomy) Hx of CABG Moderate mitral regurgitation by prior echocardiogram Murmur, cardiac Peripheral arterial disease Polycythemia vera Risk factors for obstructive sleep apnea Asymmetric septal hypertrophy Facial droop Acute CVA (cerebrovascular accident) Hypertension goal BP (blood pressure) < 140/80 History of CVA (cerebrovascular accident) Elevated troponin Tachyarrhythmia Coronary artery disease involving coronary bypass graft History of CVA in adulthood Dyslipidemia SVT (supraventricular tachycardia) ASSESSMENT & PLAN In summary, this 79-year-old gentleman who has a known history of coronary artery disease, chronic sciatica, hyperlipidemia, glucose intolerance, known and longstanding history of low er urinary tract obstruction, chronic cough, history of CABG, peripheral arterial disease, p olycythemia vera, history of CVA, was and chronic hypertension. The patient was noted to alvarado ve 6 mm right interpolar renal stone. I came down and discussed with the patient options o f management. The patient understood that the stones, which are under 4 mm are consider cli nically insignificant stones and could be observed. His stone size is larger than that and although he is not symptomatic with the stone, but the chances of passing 6-7 mm stone progr essively go down. The patient understood the implications of observing this finding and sub sequently if he would become symptomatic, this could be treated. The patient also understo od some of the caveats of chronic stone disease such as pyelonephritis, ureteral obstruction , renal function loss, and ureteral colic. After going back and forth on this issue, the jon ascencio at this time did not make a definite decision. He would like to see me on an outpatie nt basis and make a decision at that time. I encouraged him to bring all possible questions prior to making a final decision. Primary Care Physician: Brittany Meehan MD Thank you for allowing me to participate in the care of this patient. Roland Whitman MD 05/31/2019 documented in this encounter ED Notes Renetta James Technologist - 05/31/2019 12:13 AM PDTROAD TEST S0P2 95 PULSE 75Electro nically signed by Renetta James Technologist at 05/31/2019 12:14 AM PDTJosesito Brown MD - 05/30/2019 9:[address] [facility] Department of Emergency Medicine 21:39 History of Present Illness Patient Identification Simon Mccarthy is a 79 y.o. male. Patient presented to the Emergency Department by: Car Chief Complaint Chief Complaint Patient presents with Shortness of Breath pt d/c today The patient presents to ED with complaints of tachycardia Location: cardiovascular Quality: HR of 140 bpm Severity: mild to moderate Context: Patient reports that he has was seen last night, admitted, and discharged from the hospital this morning. Patient he felt fine at discharge, but on his way home had a warm se nsation across his chest. He reports he then measured his HR at it was 140 bpm when measured with two different monitors. Patient reports when the symptoms started he felt warm, clammy , then experienced difficulty balancing. He reports he then developed a sharp pain on the ri ght side of the chest. Patient reports that he is on daily metoprolol, losartan, Plavix, and started Zetia today. Patient denies any history of A-fib. Patient reports that he had a str robin two weeks ago that left him wit a left sided facial droop. Timing: Intermittent Duration: earlier today Modifying factors: Exertion causes the symptoms to worsen and laying down or sitting still makes the symptoms better The patient also complains of nausea, difficulty walking, and fatigue Patient denies nausea, headache, chest pain. Review of Systems Constitutional: Positive for tachycardia, difficulty balancing, clammy, and warm sensation Cardiovascular: Positive for chest pain. All other systems reviewed and are negative. PCP: Brittany Meehan MD Past Medical History: Diagnosis Date Arthralgia ASHD [...] (HCC) Polycythemia vera (HCC) 2016 Renal stone Sciatica Sinusitis Chronic Stroke (HCC) Trigeminy Ventricular pre-excitation Past Surgical History: Procedure [...] by mouth Daily. 05/18/19 Daron Draper MD ezetimibe (ZETIA) 10 mg tablet Take 1 tablet by mouth nightly for 30 days. 05/30/19 06/29/19 Mary Jo Moran MD fluticasone-salmeterol (ADVAIR, WIXELA INHUB) 250-50 mcg/puff diskus inhaler Inhale 1 puff into the lungs 2 (two) times daily. 11/28/18 Historical Provider, losartan (COZAAR) 50 mg tablet Take 0.5 tablets by mouth Daily. 05/23/19 MICHAEL Brown metoprolol succinate (TOPROL-XL) 25 mg 24 hr tablet Take 1 tablet by mouth Daily. 05/20/19 Daron Draper MD [...] disease Brother * Brother AAA Physical Exam Vitals: 05/30/19 2149 05/30/19 2200 05/31/19 0120 05/31/19 0214 BP: 127/62 116/63 120/56 Pulse: 71 71 68 65 Resp: 17 29 18 17 Temp: 36.8 C (98.2 F) TempSrc: Oral Oral SpO2: 96% 95% 93% 94% Weight: 78 kg (172 lb) Height: 1.753 m (5' 9") Temp: 36.4 C (97.5 F) Pulse: 78 Resp: 20 BP: 123/62 SpO2: 97 % Vital sign interpretation: Elevated BP, otherwise WNL Pulse Oximetry interpretation: Normal General: Alert, no active distress Eyes: Normal inspection, EOMI, Head: NCAT ENT: Ears normal Nose normal Neck: Normal inspection, Supple, FROM without pain, No cervical spine tenderness Cardiovascular: Extremity perfusion appears normal Respiratory: Effort normal, No respiratory distress, Lungs are clear Abdomen: Nondistended, Soft, nontender, No pulsatile abd masses, No guarding or rebound Back: Normal inspection, normal movement. Skin: No rash Extremities: No deformities, no tenderness Neuro: Alert, oriented, cranial nerves grossly intact. No gross motor deficits, Sensation intact/symmetrical in all Ext., Chest, Abd. Psych: Mood normal Lymph: No visible adenopathy Medical Decision Making and Emergency Department Course ED Department Course My DDx includes, but is not limited to: see below. The following medications were given during the course of treatment in the Emergency Depart ment: Medications - No data to display MDM: Pleasant 79 y.o. male She does have a history of stroke, has left facial droop, no other neuro deficits. EKG was done at 9:21 PM, rate 76, sinus rhythm, first-degree AV block, nonspecific ST abnor malities, EKG interpreted by myself the time of clinical encounter. Patient has had intermittent episodes of tachycardia and using home monitor on 2 different machines he was getting heart rates around 140 Certainly is possible the patient has paroxysmal SVT and/or paroxysmal A. Fib Especially with recent stroke raises concern about possible paroxysmal A. fib. Patient is currently on Plavix. Patient had slightly abnormal troponin over the last couple of days although it looks like it was stable over 24 hours Will obtain repeat blood work today, I have also added on a few additional tests to look fo r occult sepsis hence blood cultures, lactate Patient will require hospitalization for continued telemetry Also this patient indicates his symptoms seem to be exacerbated by standing and ambulation we will do ambulatory trial with monitoring specialist to see if there is a recurrence of tachycar carline. 11:28 PM Labs resulted, the patient's troponin is decreasing and he is developing worsening kidney function. 11:36 PM Discussed the patient with Lizeth, hospitalist who accepts the patient for admissio n. Will monitor the patient until transferred into hospitalist services. Records Reviewed Nursing note, medical history (Using the electronic record system of [facility]) Laboratory Evaluation Results Procedure Component Value Ref Range Date/Time Culture, Blood [[id number]] Collected: 05/30/192236 Order Status: Sent Specimen: Peripheral Blood Updated: 05/31/19 0138 Drugs Of ABuse Screen, Urine (H) [[id number]] Collected: 05/31/1918 Order Status: Completed Specimen: Urine Updated: 05/31/19 0040 Amp/Methamphetamine, Screen, Urine NEGATIVE NEG Barbiturates Screen, Urine NEGATIVE NEG Benzodiazepines Screen, Urine NEGATIVE NEG Cocaine Metabolites, Ur NEGATIVE NEG Methadone Screen, Urine NEGATIVE NEG Opiates Screen, Urine NEGATIVE NEG Phencyclidine Screen, Urine NEGATIVE NEG Tetrahydrocannabinol(THC) NEGATIVE NEG Urinalysis With Microscopic [[id number]] Collected: 05/31/1918 Order Status: Completed Specimen: Urine Updated: 05/31/19 0038 Color, UA YELLOW Clarity, UA CLEAR Specific [place], Urine 1.025 1.002 - 1.030 Leukocyte esterase, UA NEGATIVE NEG Nitrite, UA NEGATIVE NEG Urobilinogen, Ur NORMAL <1.1 mg/dL Protein, Urine (mg/dL) NEGATIVE NEG mg/dL pH, Urine 5.0 5.0 - 8.0 Blood, UA NEGATIVE NEG Ketones, UA NEGATIVE NEG mg/dL Bilirubin, UA NEGATIVE NEG Glucose, Ur NEGATIVE NEG mg/dL WBC UA 0-2 0 - 5 /hpf RBC UA 0-2 0 - 2 /hpf SQUAMOUS EPITHELIAL UA 3-5 /lpf BACTERIA UA NONE SEEN NONE MUCUS UA 1+ HYALINE CASTS UA 3-5 Culture, Blood [[id number]] Collected: 05/30/192243 Order Status: Sent Specimen: Peripheral Blood Updated: 05/30/192346 Lactic Acid [[id number]] Collected: 05/30/192243 Order Status: Completed Specimen: Blood Updated: 05/30/192316 Lactate, Serum 1.2 0.4 - 2.0 mmol/L Comprehensive Metabolic Panel [[id number]] (Abnormal) Collected: 05/30/192247 Order Status: Completed Specimen: Blood Updated: 05/30/192313 Na 143 135 - 145 mmol/L K 4.2 3.5 - 4.9 mmol/L Cl 109 99 - 109 mmol/L CO2 27 23 - 32 mmol/L Anion Gap 11 5 - 20 mmol/L Glucose 113 65 - 99 mg/dL BUN 22 8 - 25 mg/dL Creatinine 1.68 0.70 - 1.30 mg/dL BUN/Creatinine Ratio 13 Calcium 8.9 8.5 - 10.5 mg/dL Protein, Total 6.1 6.3 - 8.2 g/dL Albumin 3.9 3.3 - 4.8 g/dL Globulin 2.2 1.3 - 4.9 g/dL A/G Ratio 1.8 1.0 - 2.4 BILIRUBIN, TOTAL 0.5 0.1 - 1.5 mg/dL ALK PHOS 92 35 - 115 U/L AST 17 10 - 45 U/L ALT 8 10 - 65 U/L Estimated GFR 40 >60 mL/min/1.73m2 Troponin I [[id number]] (Abnormal) Collected: 05/30/192247 Order Status: Completed Specimen: Blood Updated: 05/30/192313 Troponin T 0.052 0.00 - 0.04 ng/mL CBC with Differential [[id number]] (Abnormal) Collected: 05/30/192247 Order Status: Completed Specimen: Blood Updated: 05/30/192301 WBC 7.64 3.80 - 11.00 K/uL RBC 5.20 4.20 - 5.70 M/uL Hemoglobin 14.8 13.2 - 17.0 g/dL Hematocrit 45.3 39.0 - 50.0 % MCV 87.0 80.0 - 100.0 fl MCH 28.4 27.0 - 34.0 pg MCHC 32.7 32.0 - 35.5 g/dL RDW-SD 48.6 37 - 53 fl Platelet Count 233 150 - 400 K/uL MPV 9.7 fl Diff Type AUTOMATED % Neutrophils 76.05 % % Lymphocytes 12.32 % Monocyte % 9.18 % Eosinophils % 1.85 % Basophils % 0.60 % Neutrophils, Absolute 5.81 1.90 - 7.40 K/uL Absolute Lymphocytes 0.94 1.00 - 3.90 K/uL Absolute Monocytes 0.70 0.00 - 0.80 K/uL Eosinophils, Absolute 0.14 0.00 - 0.50 K/uL Basophils, Absolute 0.05 0.00 - 0.10 K/uL I personally reviewed the lab results and they have been posted to the chart at the time of the patients disposition. Radiology and EKG Evaluation Imaging Results XR Chest AP Portable (Final result) Result time 05/30/19 22:31:55 Final result by Tate Rice MD (05/30/19 22:31:55) Narrative: CHEST PORTABLE ONE VIEW CLINICAL INFORMATION: Shortness of breath. COMPARISON: XR CHEST AP PORTABLE (05/28/2019); CHEST W/O CONTRAST (07/13/2013); CHEST PA (04/03/2013); FINDINGS: Sternotomy and elevated left hemidiaphragm unchanged. Heart, lungs and vessels normal. No pneumothorax, pleural effusion or adenopathy. No significant osseous abnormality. IMPRESSION: Stable sternotomy wires and elevated left hemidiaphragm. Otherwise negative chest. Signed by: Lakshmi Rice, Tate Sign Date/Time: 05/30/2019 10:31 PM Disposition: FINAL IMPRESSION ICD-10-CM ICD-9-CM 1. Paroxysmal tachycardia (HCC) suspected based on history I47.9 427.2 2. Acute renal injury (HCC) N17.9 584.9 ED Disposition ED Disposition Condition Comment Admit Clinical impression: Paroxysmal tachycardia (HCC) [[id number]] Clinical impression: Acute renal injury (HCC) [484307] Admitting provider: [facility]ITAL[facility] [[id number]] Expected patient class: Observation [104] Level of service: Medical Procedures This document has been prepared with a voice recognition system. The possibility of "sound alike" plasma specialist errors, and additions or deletions may occur. If there is any questio n, with respect to clarity of the message being conveyed, please contact me directly for cla rification. Attending Provider Note: I, Josesito Brown MD personally performed the services describe d in this documentation, as scribed by Eboni Rhodes in my presence, and it is both accurate and complete. Chart Reviewed and Completed 05/31/2019 2:21. Scribe: I Jennifer Hansen, scribing for and in the presence of Josesito Brown MD. Completed by: Jennifer Hansen 05/31/2019 2:21 Any physical exam findings mentioned in the MDM take precedence over findings listed in phy sical exam section. Josesito Brown MD, MPH Josesito Brown MD 05/31/19 0222 Bob Tamayo R N - 05/30/2019 9:09 PM PDTPatient reporting "heart burn" earlier today and discomfort to th e R side of the chest on the way to the ED. EKG ordered. documented in this encounter Miscellaneous Notes Plan of Care - Socorro Wan RN - 06/01/2019 10:46 AM PDT Problem: Adult Inpatient Plan of Care Goal: Plan of Care Review Outcome: Ongoing, progressing Goal: Optimal Comfort and Wellbeing Outcome: Ongoing, progressing Patient reports some mild burning pain associated with rapid heart rate. He denies need fo r medication at this time. Patient uses call light appropriately; nonskid footwear intact. D iscussed careplanning with Cm. 10 :47 AM PDTPlan of Care - Donna Lopez RN - 05/31/2019 6:13 PM PDTNo acute changes from prev ious assessment. End of shift chart check complete.Electronically signed by MARQUIS Farooq 05/31/2019 6:13 PM PDTPlan of Care - Donna Lopez RN - 05/31/2019 3:49 PM PDT Problem: Adult Inpatient Plan of Care Goal: Plan of Care Review Outcome: Ongoing, progressing Flowsheets (Taken 05/31/2019 1546) Plan of Care Reviewed With: patient Goal: Absence of Hospital-Acquired Illness or Injury Outcome: Ongoing, progressing Goal: Optimal Comfort and Wellbeing Outcome: Ongoing, progressing Intervention: Provide Person-Centered Care Flowsheets (Taken 05/31/2019 2776) Trust Relationship/Rapport: care explained;choices provided;emotional support provided;empa thic listening provided;questions answered;questions encouraged;reassurance provided;thought s/feelings acknowledged Vitals are stable. Pt is receiving continuous fluids. No acute changes. Will continue to m onitor. lan of Loreto Bermeo RN - 05/31/2019 5:27 AM PDTNo blood or hospital-applied restraints . All protocols followed. All med parameters checked. All orders released. Chart check done. Pt admitted to floor, oriented to unit routine. On tele. VSS, afebrile.Electronically henrique d by Loreto Epps RN at 05/31/2019 5:28 AM PDTPlan of Loreto Joshua RN - 05/31/2019 4:41 AM PDT Problem: Adult Inpatient Plan of Care Goal: Optimal Comfort and Wellbeing Outcome: Ongoing, progressing Pt voices needs, wants lan of Loreto Joshua RN - 05/31/2019 2:54 AM PDTContacte d ER, asking them to put in sticky note for pt, and draw the ordered labs from 0223. Was adv ised primary RN would be notified and would call me when pt was ready, as primary RN is at [facility]. docume nted in this encounter Plan of Treatment +--------+---------+ + + + | Date | Type | Specialty | Care Team | Description | +--------+---------+ + + + | 06/25/ | Office | Cardiology | Connie Alvarez | | | 2019 | Visit | | [address] | | | | | | [address] | | | | | | [place] [address] | | | | | | [phone] | | | | | | | | +--------+---------+ + + + documented as of this encounter Procedures + +--------+ + + + | Procedure Name | Priori | Date/Time | Associated Diagnosis | Comments | | | ty | | | | + +--------+ + + + | ECG 12 LEAD | STAT | 06/01/2019 | | Results for this | | | | 10:24 AM | | procedure are in the | | | | PDT | | results section. | + +--------+ + + + | BASIC METABOLIC | STAT | 06/01/2019 | | Results for this | | PANEL | | 9:45 AM | | procedure are in the | | | | PDT | | results section. | + +--------+ + + + | B TYPE NATRIURETIC | STAT | 06/01/2019 | | Results for this | | PEPTIDE | | 8:47 AM | | procedure are in the | | | | PDT | | results section. | + +--------+ + + + | XR FINGER LEFT 2 + | PILY | 05/31/2019 | | Results for this | | VW | | 2:29 PM | | procedure are in the | | | | PDT | | results section. | + +--------+ + + + | TROPONIN I | STAT | 05/31/2019 | | Results for this | | | | 10:22 AM | | procedure are in the | | | | PDT | | results section. | + +--------+ + + + | US RENAL COMPLETE | Routin | 05/31/2019 | | Results for this | | | e | 7:03 AM | | procedure are in the | | | | PDT | | results section. | + +--------+ + + + | TROPONIN I | STAT | 05/31/2019 | | Results for this | | | | 4:54 AM | | procedure are in the | | | | PDT | | results section. | + +--------+ + + + | LIPID PANEL | Routin | 05/31/2019 | | Results for this | | | e | 3:50 AM | | procedure are in the | | | | PDT | | results section. | + +--------+ + + + | TROPONIN I | Routin | 05/31/2019 | | Results for this | | | e | 3:50 AM | | procedure are in the | | | | PDT | | results section. | + +--------+ + + + | URIC ACID | Add-On | 05/31/2019 | | Results for this | | | | 3:50 AM | | procedure are in the | | | | PDT | | results section. | + +--------+ + + + | B TYPE NATRIURETIC | Add-On | 05/31/2019 | | Results for this | | PEPTIDE | | 3:50 AM | | procedure are in the | | | | PDT | | results section. | + +--------+ + + + | CREATINE KINASE, | Routin | 05/31/2019 | | Results for this | | ISOENZYMES | e | 3:50 AM | | procedure are in the | | | | PDT | | results section. | + +--------+ + + + | DRUGS OF ABUSE | STAT | 05/31/2019 | | Results for this | | SCREEN, URINE (H) | | 12:19 AM | | procedure are in the | | | | PDT | | results section. | + +--------+ + + + | URINALYSIS WITH | STAT | 05/31/2019 | | Results for this | | MICROSCOPIC | | 12:19 AM | | procedure are in the | | | | PDT | | results section. | + +--------+ + + + | TROPONIN I | STAT | 05/30/2019 | | Results for this | | | | 10:48 PM | | procedure are in the | | | | PDT | | results section. | + +--------+ + + + | CBC WITH | STAT | 05/30/2019 | | Results for this | | DIFFERENTIAL | | 10:48 PM | | procedure are in the | | | | PDT | | results section. | + +--------+ + + + | COMPREHENSIVE | STAT | 05/30/2019 | | Results for this | | METABOLIC PANEL | | 10:48 PM | | procedure are in the | | | | PDT | | results section. | + +--------+ + + + | CULTURE, BLOOD | STAT | 05/30/2019 | | Results for this | | | | 10:44 PM | | procedure are in the | | | | PDT | | results section. | + +--------+ + + + | LACTIC ACID | STAT | 05/30/2019 | | Results for this | | | | 10:44 PM | | procedure are in the | | | | PDT | | results section. | + +--------+ + + + | CULTURE, BLOOD | STAT | 05/30/2019 | | Results for this | | | | 10:37 PM | | procedure are in the | | | | PDT | | results section. | + +--------+ + + + | XR CHEST AP PORTABLE | PILY | 05/30/2019 | | Results for this | | | | 10:17 PM | | procedure are in the | | | | PDT | | results section. | + +--------+ + + + | ECG 12 LEAD | Routin | 05/30/2019 | | Results for this | | | e | 9:21 PM | | procedure are in the | | | | PDT | | results section. | + +--------+ + + + documented in this encounter Results ECG 12 lead (06/01/2019 10:24 AM PDT) + + + + + + | Component | Value | Ref Range | Performed | Pathologist | | | | | At | Signature | + + + + + + | VENTRICULAR | 124 | BPM | [facility] | | | RATE EKG | | | | | + + + + + + | ATRIAL RATE | 16 | BPM | [facility] | | + + + + + + | QRS | 108 | ms | [facility] | | | DURATION | | | | | + + + + + + | Q-T | 314 | ms | [facility] | | | INTERVAL | | | | | + + + + + + | Q-T | 451 | ms | [facility] | | | INTERVAL | | | | | | (CORRECTED) | | | | | + + + + + + | QRS AXIS | 13 | degrees | [facility] | | + + + + + + | T AXIS | -4 | degrees | [facility] | | + + + + + + | INTERPRETAT | Supraventricular | | [facility] | | | ION TEXT | tachycardia with | | | | | | retrograde | | | | | | conductionIncomplete | | | | | | right bundle branch | | | | | | blockAbnormal ECGWhen | | | | | | compared with ECG of | | | | | | 30-MAY-2019 | | | | | | 21:21,Supraventricular | | | | | | tachycardia has replaced | | | | | | Sinus rhythmVent. rate | | | | | | has increased BY 48 | | | | | | BPMConfirmed by KAROLINE MELENDEZ, | | | | | | SHANNAN ([id number]) on | | | | | | 06/02/2019 6:49:42 PM | | | | + + [...] | | | + +---------+ + + Basic Metabolic Panel (06/01/2019 9:45 AM PDT) + + + + + [...] + + + + | Glucose | 132 (H) | 65 - 99 mg/dL | [facility] | | | | | | LABORATORY | | + + + + + + | BUN | 17 | 8 - 25 mg/dL | [facility] | | | | | | LABORATORY | | + + + + + + | Creatinine | 1.14 | 0.70 - 1.30 | [facility] | | | | | mg/dL | LABORATORY | | + + + + + + | BUN/Creatin | 15 | | [facility] | | | ine Ratio | | | LABORATORY | | + + + + + + | Calcium | 8.8 | 8.5 - 10.5 | [facility] | [...] | | | | | performed at [facility];[address] | | | | | | [facility];[place], [place] | | | | | | [address] | | | | + + + + + + + + | Specimen | + + | Blood | + + + + + + + | Performing | Address | City/State/Zipcode | Phone Number | | Organization | | | | + + + + + | [facility] | [address] | [place] [address] | [phone] | + + + + + B Type Natriuretic Peptide (06/01/2019 8:47 AM PDT) + + + + + + | Component | Value | Ref Range | Performed | Pathologist | | | | | At | Signature | + + + + + + | BNP | 98.24Comment: Testing | 0 - 100 pg/mL | [facility] | | | | performed at [facility];[address] | | LABORATORY | | | | [facility];[place], [place] | | | | | | [address] | | | | + + + + + + + + | Specimen | + + | Blood | + + + + + + + | Performing | Address | City/State/Zipcode | Phone Number | | Organization | | | | + + + + + | [facility] | [address] | [place] [address] | [phone] | + + + + + XR Finger Left 2 + Vw (05/31/2019 2:29 PM PDT) + + | Specimen | + + | | + + + + + | Narrative | Performed At | + + + | FINGER CLINICAL INFORMATION: Swelling and pain in L index | [facility] | | finger COMPARISON: None FINDINGS: There is moderate | | | generalized osteopenia. 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 There is moderate | | | arthritis and narrowing of the radiocarpal joint space. There is | | | severe osteoarthritis of the 1st MCP joint. The patient has diffuse | | | severe PIP joint space narrowing with osteoarthritic spurring. | | | There is moderate osteoarthritis of the DIP joint of the 3rd and | | | 5th digit. There is soft tissue swelling of the PIP joint of the 2nd | | | digit. IMPRESSION: 1. No acute fracture or dislocation. 2. | | | Nonspecific soft tissue swelling along the PIP joint of the 2nd | | | digit. Signed by: Lakshmi Elizondo Richard Sign Date/Time: | | | 05/31/2019 2:34 PM | | + + + + + | Procedure Note | + + | Frantz, Rad Results In - 05/31/2019 2:38 PM PDT | | FINGER | | | | CLINICAL INFORMATION: | | Swelling and pain in L index finger | | | | COMPARISON: | | None | | | | FINDINGS: | | There is moderate generalized osteopenia. Severe osteoarthritis | | involving the 1st carpal metacarpal articulation is noted. There is | | moderate arthritis and narrowing of the radiocarpal joint space. There | | is severe osteoarthritis of the 1st MCP joint. The patient has diffuse | | severe PIP joint space narrowing with osteoarthritic spurring. There | | is moderate osteoarthritis of the DIP joint of the 3rd and 5th digit. | | There is soft tissue swelling of the PIP joint of the 2nd digit. | | | | IMPRESSION: | | 1. No acute fracture or dislocation. | | 2. Nonspecific soft tissue swelling along the PIP joint of the 2nd | | digit. | | | | | | | | | | Signed by: Lakshmi Elizondo Richard | | Sign Date/Time: 05/31/2019 2:34 PM | + + + +---------+ + + | Performing | Address | City/State/[facility] | Phone Number | | Organization | | | | + +---------+ + + | [facility] | | | | + +---------+ + + Troponin I (05/31/2019 10:22 AM PDT) + + + + + + | Component | Value | Ref Range | Performed | Pathologist | | | | | At | Signature | + + + + + + | Troponin I | 0.048 (H)Comment: 0.04 | 0.00 - 0.04 | [facility] | | | | ng/mL or [...] at | | | | | | [facility];[address] [facility] | | | | | | [address];[place] [address] | | | | + + + + + + + + | Specimen | + + | Blood | + + + + + + + | Performing | Address | City/State/Zipcode | Phone Number | | Organization | | | | + + + + + | [facility] | [address] | [place] [address] | [phone] | + + + + + US Renal Complete (05/31/2019 7:03 AM PDT) + + | Specimen | + + | | + + + + + | Narrative | Performed At | + + + | ULTRASOUND KIDNEYS AND BLADDER CLINICAL INFORMATION: Renal | [facility] | | failure. COMPARISON: None PROCEDURE: Evaluation of the | | | kidneys and urinary bladder. FINDINGS: Right kidney: 11.7 cm. No | | | hydronephrosis. 6 mm echogenic focus within the interpolar region | | | with decreased through transmission consistent with a nonobstructive | | | calculus. Left kidney: 11.4 cm. Cystic structure within the | | | inferior pole of the left kidney measuring approximately 2.2 cm in | | | maximal diameter most likely represents a simple renal cortical cyst | | | or peripelvic cysts. No hydronephrosis. No sonographically | | | evident renal calculi. Bladder: Bilateral ureteral jets | | | identified. Incidental note is made of a distal abdominal aortic | | | aneurysm which measures approximately 3.7 cm in maximal diameter. | | | IMPRESSION: 1. No hydronephrosis. 6 mm nonobstructing calculus | | | within the right interpolar region. 2. Abdominal aortic aneurysm | | | measuring 3.7 cm in diameter. Signed by: Jay Jay Pandey, | | | Amrit Sign Date/Time: 05/31/2019 7:09 AM | | + + + + + | Procedure Note | + + | Frantz, Rad Results In - 05/31/2019 7:13 AM PDT | | ULTRASOUND KIDNEYS AND BLADDER | | | | CLINICAL INFORMATION: | | Renal failure. | | | | COMPARISON: | | None | | | | PROCEDURE: | | Evaluation of the kidneys and urinary bladder. | | | | FINDINGS: | | Right kidney: 11.7 cm. No hydronephrosis. 6 mm echogenic focus within | | the interpolar region with decreased through transmission consistent | | with a nonobstructive calculus. | | | | Left kidney: 11.4 cm. Cystic structure within the inferior pole of the | | left kidney measuring approximately 2.2 cm in maximal diameter most | | likely represents a simple renal cortical cyst or peripelvic cysts. No | | hydronephrosis. No sonographically evident renal calculi. | | | | Bladder: Bilateral ureteral jets identified. | | | | Incidental note is made of a distal abdominal aortic aneurysm which | | measures approximately 3.7 cm in maximal diameter. | | | | IMPRESSION: | | 1. No hydronephrosis. 6 mm nonobstructing calculus within the right | | interpolar region. | | 2. Abdominal aortic aneurysm measuring 3.7 cm in diameter. | | | | | | | | | | Signed by: Jay Jay Pandey Jace | | Sign Date/Time: 05/31/2019 7:09 AM | + + + +---------+ + + | Performing | Address | City/State/Zipcode | Phone Number | | Organization | | | | + +---------+ + + | [facility] | | | | + +---------+ + + Troponin I (05/31/2019 4:54 AM PDT) + + + + + + | Component | Value | Ref Range | Performed | Pathologist | | | | | At | Signature | + + + + + + | Troponin I | 0.058 (H)Comment: 0.04 | 0.00 - 0.04 | [...] at | | | | | | [facility];[address] | | | | | | [address]vd;[place] [address] | | | | + + + + + + + + | Specimen | + + | Blood | + + + + + + + | Performing | Address | City/State/Zipcode | Phone Number | | Organization | | | | + + + + + | [facility] | [address] | [place] [address] | [phone] | + + + + + Uric Acid (05/31/2019 3:50 AM PDT) + + + + + + | Component | Value | Ref Range | Performed | Pathologist | | | | | At | Signature | + + + + + + | Uric Acid | 5.1Comment: Testing | 3.2 - 8.6 mg/dL | [facility] | | | | performed at [facility], [address] | | LABORATORY | | | | [address], | | | | | | [place] [address] | | | | + + + + + + + + | Specimen | + + | Blood | + + + + + + + | Performing | Address | City/State/Zipcode | Phone Number | | Organization | | | | + + + + + | [facility] | [address] | [place] [address] | [phone] | + + + + + B Type Natriuretic Peptide (05/31/2019 3:50 AM PDT) + + + + + + | Component | Value | Ref Range | Performed | Pathologist | | | | | At | Signature | + + + + + + | BNP | 70.13Comment: Testing | 0 - 100 pg/mL | [facility] | | | | performed at [facility];[address] | | LABORATORY | | | | [address];[place] | | | | | | [address] | | | | + + + + + + + + | Specimen | + + | Blood | + + + + + + + | Performing | Address | City/State/Zipcode | Phone Number | | Organization | | | | + + + + + | [facility] | [address] | [place] [address] | [phone] | + + + + + Creatine Kinase, Isoenzymes (05/31/2019 3:50 AM PDT) + + + + + [...] [address], | | | | | | [place] [address] | | | | + + + + + + | CK-MB | 0Comment: Testing | 0 - 3 % | [facility] | | | | performed by [facility], | | LABORATORY | | | | [address], | | | | | | [place] [address] | | | | + + + + + + | CK-BB | 0Comment: Testing | 0 % | [facility] | | | | performed by [facility], | | LABORATORY | | | | [address], | | | | | | [place] [address] | | | | + + + + + + | CK, Total | 39Comment: Testing | 24 - 204 U/L | [facility] | | | | performed at [facility], | | LABORATORY | | | | [address], | | | | | | [facility] [address] | | | | + + + + + + | CK-MACRO | 0 | Not Observed % | [facility] | | | TYPE 1 | | | LABORATORY | | + + + + + + | CK-MACRO | 0Comment: Testing | Not Observed % | [facility] | | | TYPE II | performed by [facility], | | LABORATORY | | | | [address], | | | | | | [facility] [address] | | | | + + + + + + + + | Specimen | + + | Blood | + + + + + + + | Performing | Address | City/State/Zipcode | Phone Number | | Organization | | | | + + + + + | [facility] | [address] | [place] [address] | [phone] | + + + + + Lipid Panel (05/31/2019 3:50 AM PDT) + + + + + + | Component | Value | Ref Range | Performed | Pathologist | | | | | At | Signature | + + + + + + | Cholesterol | 104 | <200 mg/dL | [facility] | | | | | | LABORATORY | | + + + + + + | Triglycerid | 70 | <150 mg/dL | [facility] | | | es | | | LABORATORY | | + + + + + + | HDL | 31 (L) | >40 mg/dL | [facility] | | | | | | LABORATORY | | + + + + + + | LDL, | 59Comment: Testing | <100 mg/dL | [facility] | | | Calculated | performed at [facility], [address] | | LABORATORY | | | | [address], | | | | | | [place] [address] | | | | + + + + + + + + | Specimen | + + | Blood | + + + + + + + | Performing | Address | City/State/Zipcode | Phone Number | | Organization | | | | + + + + + | [facility] | [address] | [place] [address] | [phone] | + + + + + Troponin I (05/31/2019 3:50 AM PDT) + + + + + + | Component | Value | Ref Range | Performed | Pathologist | | | | | At | Signature | + + + + + + | Troponin I | 0.058 (H)Comment: 0.04 | 0.00 - 0.04 | [...] at | | | | | | [facility];[address] [facility] | | | | | | vd;[place] [address] | | | | + + + + + + + + | Specimen | + + | Blood | + + + + + + + | Performing | Address | City/State/Zipcode | Phone Number | | Organization | | | | + + + + + | [facility] | [address] | [place] [address] | [phone] | + + + + + Drugs Of ABuse Screen, Urine (H) (05/31/2019 12:19 AM PDT) + + + + + + | Component | Value | Ref Range | Performed | Pathologist | | | | | At | Signature | + + + + + + | Amp/Methamp | NEGATIVEComment: | NEG | [facility] | | | hetamine, | Positive cutoff for AMP | | LABORATORY | | | Screen, | = 1000 ng/mL | | | | | Urine | | | | | + + + + + + | Barbiturate | NEGATIVEComment: | NEG | [facility] | | | s Screen, | Positive cutoff for PATRICIO | | LABORATORY | | | Urine | = 200 ng/mL | | | | + + + + + + | Benzodiazep | NEGATIVEComment: | NEG | [facility] | | | francisco javier | Positive cutoff for | | LABORATORY | | | Screen, | BENZO = 200 ng/mL | | | | | Urine | | | | | + + + + + + | Cocaine | NEGATIVEComment: | NEG | [facility] | | | Metabolites | Positive cutoff for RONNY | | LABORATORY | | | , Ur | = 300 ng/mL | | | | + + + + + + | Methadone | NEGATIVEComment: | NEG | [facility] | | | Screen, | Positive cutoff for MTD | | LABORATORY | | | Urine | = 300 ng/mL | | | | + + + + + + | Opiates | NEGATIVEComment: | NEG | [facility] | | | Screen, | Positive cutoff for OPI | | LABORATORY | | | Urine | = 300 ng/mL | | | | + + + + + + | Phencyclidi | NEGATIVEComment: | NEG | [facility] | | | ne Screen, | Positive cutoff for PCP | | LABORATORY | | | Urine | = 25 ng/mL | | | | + + + + + + | Tetrahydroc | NEGATIVEComment: | NEG | [facility] | | | annabinol(T | Positive cutoff for | | LABORATORY | | | HC) | THC = 50 ng/mLThe above | | | | | | are unconfirmed | | | | | | screening results. | | | | | | These results are to | | | | | | be used onlyfor medical | | | | | | (i.e.,treatment) | | | | | | purposes. Unconfirmed | | | | | | screening results must | | | | | | notbe used for | | | | | | non-medical purposes | | | | | | (e.g., employment | | | | | | testing, legal | | | | | | testing).Testing | | | | | | performed at [facility] | | | | | | [facility];[place], [place] | | | | | | [address] | | | | + + + + + + + + | Specimen | + + | Urine | + + + + + + + | Performing | Address | City/State/Zipcode | Phone Number | | Organization | | | | + + + + + | [facility] | [address] | [place] [address] | [phone] | + + + + + Urinalysis With Microscopic (05/31/2019 12:19 AM PDT) + + + + + + | Component | Value | Ref Range | Performed | Pathologist | | | | | At | Signature | + + + + + + | Color, UA | YELLOW | | [facility] | | | | | | LABORATORY | | + + + + + + | Clarity, | CLEAR | | [facility] | | | Urine | | | LABORATORY | | + + + + + + | Specific | 1.025 | 1.002 - 1.030 | [facility] | | | [place], | | | LABORATORY | | | Urine | | | | | + + + + + + | Leukocyte | NEGATIVE | NEG | [facility] | | | esterase, | | | LABORATORY | | | UA | | | | | + + + + + + | Nitrite, UA | NEGATIVE | NEG | [facility] | | | | | | LABORATORY | | + + + + + + | Urobilinoge | NORMAL | <1.1 mg/dL | [facility] | | | n, Ur | | | LABORATORY | | + + + + + + | Protein, | NEGATIVE | NEG mg/dL | [facility] | | | Urine | | | LABORATORY | | | (mg/dL) | | | | | + + + + + + | pH, Urine | 5.0 | 5.0 - 8.0 | [facility] | | | | | | LABORATORY | | + + + + + + | Blood, UA | NEGATIVE | NEG | [facility] | | | | | | LABORATORY | | + + + + + + | Ketones, UA | NEGATIVE | NEG mg/dL | [facility] | | | | | | LABORATORY | | + + + + + + | Bilirubin, | NEGATIVE | NEG | [facility] | | | UA | | | LABORATORY | | + + + + + + | Glucose, Ur | NEGATIVE | NEG mg/dL | [facility] | | | | | | LABORATORY | | + + + + + + | WBC UA | 0-2 | 0 - 5 /hpf | [facility] | | | | | | LABORATORY | | + + + + + + | Red Blood | 0-2 | 0 - 2 /hpf | [facility] | | | Cells, | | | LABORATORY | | | Urine | | | | | + + + + + + | Squamous | 3-5 | /lpf | [facility] | | | Epithelial | | | LABORATORY | | | Cells, | | | | | | Urine | | | | | + + + + + + | Bacteria, | NONE SEEN | NONE | [facility] | | | Urine | | | LABORATORY | | + + + + + + | Mucus, | 1+ | | [facility] | | | Urine | | | LABORATORY | | + + + + + + | HYALINE | 3-5Comment: Testing | | [facility] | | | CASTS UA | performed at [facility];[address] | | LABORATORY | | | | [address];[place], [place] | | | | | | [address] | | | | + + + + + + + + | Specimen | + + | Urine | + + + + + + + | Performing | Address | City/State/Zipcode | Phone Number | | Organization | | | | + + + + + | [facility] | [address] [facility] | [place] [address] | [phone] | + + + + + Troponin I (05/30/2019 10:48 PM PDT) + + + + + + | Component | Value | Ref Range | Performed | Pathologist | | | | | At | Signature | + + + + + + | Troponin I | 0.052 (H)Comment: 0.04 | 0.00 - 0.04 | [facility] | | | | ng/mL or [...] at | | | | | | [facility];[address] | | | | | | [facility];[place] [address] | | | | + + + + + + + + | Specimen | + + | Blood | + + + + + + + | Performing | Address | City/State/Zipcode | Phone Number | | Organization | | | | + + + + + | [facility] | [address] | [place] [address] | [phone] | + + + + + Comprehensive Metabolic Panel (05/30/2019 10:48 PM PDT) + + + + + + | Component | Value | Ref Range | Performed | Pathologist | | | | | At | Signature | + + + + + + | Na | 143 | 135 - 145 | [facility] | [...] + + + + | Glucose | 113 (H) | 65 - 99 mg/dL | [facility] | | | | | | LABORATORY | | + + + + + + | BUN | 22 | 8 - 25 mg/dL | [facility] | | | | | | LABORATORY | | + + + + + + | Creatinine | 1.68 (H) | 0.70 - 1.30 | [facility] [...] + + + + | Globulin | 2.2 | 1.3 - 4.9 g/dL | [facility] | | | | | | LABORATORY | | + + + + + + | A/G Ratio | 1.8 | 1.0 - 2.4 | [facility] | | | | | | LABORATORY | | + + + + + + | BILIRUBIN, | 0.5 | 0.1 - 1.5 mg/dL | [facility] | | | TOTAL | | | LABORATORY | | + + + + + + | ALK PHOS | 92 | 35 - 115 U/L | [facility] [...] + + + + | Estimated | 40 (L)Comment: GFR <60: | >60 | [facility] [...] | | | | | | MDRD IDAL traceable | | | | | | equation.Testing | | | | | | performed at [facility];[address] | | | | | | [facility];[place], [place] | | | | | | [address] | | | | + + + + + + + + | Specimen | + + | Blood | + + + + + + + | Performing | Address | City/State/Zipcode | Phone Number | | Organization | | | | + + + + + | [facility] | [address] | [place] [address] | [phone] | + + + + + CBC with Differential (05/30/2019 10:48 PM PDT) + + + + + + | Component | Value | Ref Range | Performed | Pathologist | | | | | At | Signature | + + + + + + | WBC | 7.64 | 3.80 - 11.00 | [facility] | | | | | K/uL | LABORATORY | | + + + + + + | Red Blood | 5.20 | 4.20 - 5.70 | [facility] | | | Cells | | M/uL | LABORATORY | | + + + + + + | Hemoglobin | 14.8 | 13.2 - 17.0 | [facility] | | | | | g/dL | LABORATORY | | + + + + + + | Hematocrit | 45.3 | 39.0 - 50.0 % | [facility] | | | | | | LABORATORY | | + + + + + + | MCV | 87.0 | 80.0 - 100.0 fl | [facility] | | | | | | LABORATORY | | + + + + + + | MCH | 28.4 | 27.0 - 34.0 pg | [facility] | | | | | | LABORATORY | | + + + + + + | MCHC | 32.7 | 32.0 - 35.5 | [facility] | | | | | g/dL | LABORATORY | | + + + + + + | RDW-SD | 48.6 | 37 - 53 fl | [facility] | | | | | | LABORATORY | | + + + + + + | Platelet | 233 | 150 - 400 K/uL | [facility] | | | Count | | | LABORATORY | | + + + + + + | MPV | 9.7 | fl | [facility] | | | | | | LABORATORY | | + + + + + + | Diff Type | AUTOMATED | | [facility] | | | | | | LABORATORY | | + + + + + + | % | 76.05 | % | [facility] | | | Neutrophils | | | LABORATORY | | + + + + + + | % | 12.32 | % | [facility] | | | Lymphocytes | | | LABORATORY | | + + + + + + | Monocyte % | 9.18 | % | [facility] | | | | | | LABORATORY | | + + + + + + | Eosinophils | 1.85 | % | [facility] | | | % | | | LABORATORY | | + + + + + + | Basophils % | 0.60 | % | [facility] | | | | | | LABORATORY | | + + + + + + | Neutrophils | 5.81 | 1.90 - 7.40 | [facility] | | | , Absolute | | K/uL | LABORATORY | | + + + + + + | Absolute | 0.94 (L) | 1.00 - 3.90 | [facility] | | | Lymphocytes | | K/uL | LABORATORY | | + + + + + + | Absolute | 0.70 | 0.00 - 0.80 | [facility] | | | Monocytes | | K/uL | LABORATORY | | + + + + + + | Eosinophils | 0.14 | 0.00 - 0.50 | [facility] | | | , Absolute | | K/uL | LABORATORY | | + + + + + + | Basophils, | 0.05Comment: Testing | 0.00 - 0.10 | [facility] | | | Absolute | performed at [facility];[address] | K/uL | LABORATORY | | | | [address];[place], [place] | | | | | | [address] | | | | + + + + + + + + | Specimen | + + | Blood | + + + + + + + | Performing | Address | City/State/Zipcode | Phone Number | | Organization | | | | + + + + + | [facility] | [address] | [place] [address] | [phone] | + + + + + Lactic Acid (05/30/2019 10:44 PM PDT) + + + + + + | Component | Value | Ref Range | Performed | Pathologist | | | | | At | Signature | + + + + + + | Lactate, | 1.2Comment: Testing | 0.4 - 2.0 | [facility] | | | Serum | performed at [facility];[address] | mmol/L | LABORATORY | | | | [address];[place] | | | | | | [address] | | | | + + + + + + + + | Specimen | + + | Blood | + + + + + + + | Performing | Address | City/State/Zipcode | Phone Number | | Organization | | | | + + + + + | [facility] | [address] | [place] [address] | [phone] | + + + + + Culture, Blood (05/30/2019 10:44 PM PDT) + + + + + + | Component | Value | Ref Range | Performed | Pathologist | | | | | At | Signature | + + + + + + | RESULT | NO GROWTH 6 DAYS | | [facility] | | | | | | LABORATORY | | + + + + + + | RESULT | Testing performed at | | [facility] | | | | [facility], [address] | | LABORATORY | | | | [place], [place] | | | | | | [id number]: Testing | | | | | | performed at [facility], [address] | | | | | | [address] [place], | | | | | | [place] [address] | | | | + + + + + + + + | Specimen | + + | Blood - Peripheral | | blood specimen | | (specimen) | + + + + + + + | Performing | Address | City/State/Zipcode | Phone Number | | Organization | | | | + + + + + | [facility] | [address] | [place] [address] | [phone] | + + + + + Culture, Blood (05/30/2019 10:37 PM PDT) + + + + + + | Component | Value | Ref Range | Performed | Pathologist | | | | | At | Signature | + + + + + + | RESULT | NO GROWTH 6 DAYS | | [facility] | | | | | | LABORATORY | | + + + + + + | RESULT | Testing performed at | | [facility] | | | | [facility], [address] | | LABORATORY | | | | [place], [place], [place] | | | | | | [id number]: Testing | | | | | | performed at [facility], [address] | | | | | [address], | | | | | | [place] [address] | | | | + + + + + + + + | Specimen | + + | Blood - Peripheral | | blood specimen | | (specimen) | + + + + + + + | Performing | Address | City/State/Zipcode | Phone Number | | Organization | | | | + + + + + | [facility] | [address] | [place] [address] | [phone] | + + + + + XR Chest AP Portable (05/30/2019 10:17 PM PDT) + + | Specimen | + + | | + + + + + | Narrative | Performed At | + + + | CHEST PORTABLE ONE VIEW CLINICAL INFORMATION: Shortness of | [facility] | | breath. COMPARISON: XR CHEST AP PORTABLE (05/28/2019); CHEST W/O | | | CONTRAST (07/13/2013); CHEST PA (04/03/2013); FINDINGS: Sternotomy | | | and elevated left hemidiaphragm unchanged. Heart, lungs and | | | vessels normal. No pneumothorax, pleural effusion or adenopathy. No | | | significant osseous abnormality. IMPRESSION: Stable sternotomy | | | wires and elevated left hemidiaphragm. Otherwise negative chest. | | | Signed by: Lakshmi Rice, Tate Sign Date/Time: 05/30/2019 | | | 10:31 PM | | + + + + + | Procedure Note | + + | Frantz, Alfred Results In - 05/30/2019 10:35 PM PDT | | CHEST PORTABLE ONE VIEW | | | | CLINICAL INFORMATION: | | Shortness of breath. | | | | COMPARISON: | | XR CHEST AP PORTABLE (05/28/2019); CHEST W/O CONTRAST (07/13/2013); CHEST | | PA (04/03/2013); | | | | FINDINGS: | | Sternotomy and elevated left hemidiaphragm unchanged. Heart, lungs and | | vessels normal. No pneumothorax, pleural effusion or adenopathy. No | | significant osseous abnormality. | | | | IMPRESSION: | | Stable sternotomy wires and elevated left hemidiaphragm. Otherwise | | negative chest. | | | | | | | | Signed by: Lakshmi Rice Gordon | | Sign Date/Time: 05/30/2019 10:31 PM | + + + +---------+ + + | Performing | Address | City/State/Zipcode | Phone Number | | Organization | | | | + +---------+ + + | [facility] | | | | + +---------+ + + ECG 12 lead (05/30/2019 9:21 PM PDT) + + + + + + | Component | Value | Ref Range | Performed | Pathologist | | | | | At | Signature | + + + + + + | VENTRICULAR | 76 | BPM | [facility] | | | RATE EKG | | | | | + + + + + + | ATRIAL RATE | 76 | BPM | [facility] | | + + + + + + | P-R | 222 | ms | [facility] | | | INTERVAL | | | | | + + + + + + | QRS | 106 | ms | [facility] | | | DURATION | | | | | + + + + + + | Q-T | 354 | ms | [facility] | | | INTERVAL | | | | | + + + + + + | Q-T | 398 | ms | [facility] | | | INTERVAL | | | | | | (CORRECTED) | | | | | + + + + + + | P WAVE AXIS | 9 | degrees | [facility] | | + + + + + + | QRS AXIS | -3 | degrees | [facility] | | [...] | | | | | ECG of 29-MAY-2019 | | | | | | 12:05,Inferior infarct | | | | | | is now PresentThis ECG | | | | | | contains Unconfirmed | | | | | | Interpretation | | | | | | Statements. See ED | | | | | | Record for Physician | | | | | | Interpretation. 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 | | pectoris | + + | History of CVA in adulthood | + + | Dyslipidemia Other and unspecified hyperlipidemia | + + documented in this encounter Administered Medications + +--------+ +-------+------+------+ | Medication Order | MAR | Action | Dose | Rate | Site | | | Action | Date | | | | + +--------+ +-------+------+------+ | aspirin chewable tablet 81 mg | Given | 06/01/20 | 81 mg | | | | 81 mg, Oral, DAILY, First dose on | | 19 9:38 | | | | | Sandra 05/31/19 at 0900, Retime first | | AM PDT | | | | | dose to TOMORROW if patient has | | | | | | | already received a dose of | | | | | | | aspirin TODAY., | | | | | | + +--------+ +-------+------+------+ +-------+ +-------+---+---+ | Given | 05/31/20 | 81 mg | | | | | 19 9:20 | | | | | | AM PDT | | | | +-------+ +-------+---+---+ +---+---+ | | | +---+---+ + +-------+ +---------+---+---+ | budesonide-formoterol | Given | 06/01/20 | 2 puffs | | | | (SYMBICORT) 80-4.5 mcg/puff | | 19 9:41 | | | | | inhaler 2 puff 2 puff, | | AM PDT | | | | | Inhalation, RT BID, First dose on | | | | | | | Sandra 05/31/19 at 0900 | | | | | | + +-------+ +---------+---+---+ +-------+ +---------+---+---+ | Given | 05/31/20 | 2 puffs | | | | | 19 8:03 | | | | | | PM PDT | | | | +-------+ +---------+---+---+ | Given | 05/31/20 | 2 puffs | | | | | 19 9:20 | | | | | | AM PDT | | | | +-------+ +---------+---+---+ +---+---+ | | | +---+---+ + +-------+ +-------+---+---+ | clopidogrel (PLAVIX) tablet 75 | Given | 06/01/20 | 75 mg | | | | mg 75 mg, Oral, DAILY, First | | 19 9:38 | | | | | dose on [facility] 05/31/19 at 0900 | | AM PDT | | | | + +-------+ +-------+---+---+ +-------+ +-------+---+---+ | Given | 05/31/20 | 75 mg | | | | | 19 9:20 | | | | | | AM PDT | | | | +-------+ +-------+---+---+ +---+---+ | | | +---+---+ + +-------+ +-------+---+---+ | ezetimibe (ZETIA) tablet 10 mg | Given | 05/31/20 | 10 mg | | | | 10 mg, Oral, NIGHTLY, First dose | | 19 8:03 | | | | | on Sandra 05/31/19 at 0445 | | PM PDT | | | | + +-------+ +-------+---+---+ +---+---+ | | | +---+---+ + +-------+ +--------+---+ + | heparin 5,000 units/mL | Given | 06/01/20 | 5,000 | | Abdomen- | | injection 5,000 Units 5,000 | | 19 6:05 | Units | | LUQ | | Units, Subcutaneous, EVERY 12 | | AM PDT | | | | | HOURS (2 times per day), First | | | | | | | dose on [facility] 05/31/19 at 0230 | | | | | | + +-------+ +--------+---+ + +-------+ +--------+---+ + | Given | 05/31/20 | 5,000 | | Abdomen- | | | 19 6:21 | Units | | LLQ | | | PM PDT | | | | +-------+ +--------+---+ + | Given | 05/31/20 | 5,000 | | Abdomen- | | | 19 5:12 | Units | | LLQ | | | AM PDT | | | | +-------+ +--------+---+ + + +---+ | | | + +---+ | metoprolol succinate | | | (TOPROL-XL) ER tablet 50 mg 50 | | | mg, Oral, DAILY, First dose on | | | 06/01/19 at 1130, Tablet may be | | | cut where scored but do not | | | crush., | | + +---+ | | | + +---+ + +-------+ +---------+---+---+ | metoprolol tartrate (LOPRESSOR) | Given | 06/01/20 | 12.5 mg | | | | tablet 12.5 mg 12.5 mg, Oral, 2 | | 19 9:38 | | | | | TIMES DAILY, First dose on Sandra | | AM PDT | | | | | 05/31/19 at 0900, Hold for HR less | | | | | | | than 65 or SBP less than 100, | | | | | | + +-------+ +---------+---+---+ +-------+ +---------+---+---+ | Given | 05/31/20 | 12.5 mg | | | | | 19 8:02 | | | | | | PM PDT | | | | +-------+ +---------+---+---+ | Given | 05/31/20 | 12.5 mg | | | | | 19 9:21 | | | | | | AM PDT | | | | +-------+ +---------+---+---+ +---+---+ | | | +---+---+ + +-------+ +---------+---+---+ | metoprolol tartrate (LOPRESSOR) | Given | 06/01/20 | 12.5 mg | | | | tablet 12.5 mg 12.5 mg, Oral, | | 19 10:42 | | | | | ONCE, 06/01/19 at 1100, For 1 | | AM PDT | | | | | dose | | | | | | + +-------+ +---------+---+---+ + +---+ | | | + +---+ | predniSONE (DELTASONE) tablet | | | 20 mg 20 mg, Oral, DAILY, First | | | dose (after last modification) on | | | 06/02/19 at 0900 | | + +---+ | | | + +---+ + +-------+ +-------+---+---+ | predniSONE (DELTASONE) tablet | Given | 06/01/20 | 40 mg | | | | 40 mg 40 mg, Oral, DAILY, First | | 19 9:38 | | | | | dose on Sandra 05/31/19 at 1430 | | AM PDT | | | | + +-------+ +-------+---+---+ +-------+ +-------+---+---+ | Given | 05/31/20 | 40 mg | | | | | 19 2:18 | | | | | | PM PDT | | | | +-------+ +-------+---+---+ +---+---+ | | | +---+---+ + +---------+ +---+ +---+ | sodium chloride 0.9% (NS) | New Bag | 05/31/20 | | 75 mL/hr | | | infusion at 75 mL/hr, | | 19 5:13 | | | | | Intravenous, CONTINUOUS, Starting | | AM PDT | | | | | Sandra 05/31/19 at 0500, For 500 ml, | | | | | | + +---------+ +---+ +---+ +---+---+ | | | +---+---+ + +---------+ +---+-------+---+ | sodium chloride 0.9% (NS) | New Bag | 05/31/20 | | 100 | | | infusion at 100 mL/hr, | | 19 2:06 | | mL/hr | | | Intravenous, CONTINUOUS, Starting | | PM PDT | | | | | Sandra 05/31/19 at 1415 | | | | | | + +---------+ +---+-------+---+ +---+---+ | | | +---+---+ documented in this encounter
--- OUTSIDE RECORDS SUMMARY | ~2020-05-18 | XMS | Encounter Summary ---
Demographics + + + | Address | [address] | | | [place] [address] | + + + | Home Phone | | + + + | Preferred Language | Unknown | + + + | Marital Status | | + + + | Moravian Affiliation | 1041 | + + + | Race | White | + + + | Ethnic Group | Not or | + + + Author + + + | Author | [facility] | | | and [place] | + + + | Organization | [facility] | | | and [place] | + + + | Address | Unknown | + + + | Phone | Unavailable | + + + Support + + + + + | Name | Relationship | Address | Phone | + + + + + | Tera Mccarthy | ECON | [place], [place] | | | | | [address] | | + + + + + | Alicia Mccarthy | ECON | [address] | | | | | [place] [address] | | + + + + + Care Team Providers + +------+ + | Care Manager Security And Safety Name | Role | Phone | + +------+ + | Brittany Meehan MD | PCP | | + +------+ + Encounter Details +--------+ + + + + | Date | Type | Department | Care Team | Description | +--------+ + + + + | 05/30/ | Orders Only | [facility] | Jacob Sarkar | Cerebrovascular | | 2019 | | CARDIOLOGY [facility]ER | MD [address] | accident (CVA), | | | | [address] | unspecified | | | | [place], [place] | [place] [address] | mechanism (HCC) | | | | [address] | [phone] | (Primary Dx) | | | | [phone] | | | +--------+ + + + [...] [address] | | | | | | [place] [address] | | | | | | [phone] | | | | | | | [...]
--- OUTSIDE RECORDS SUMMARY | ~2020-05-18 | XMS | Encounter Summary ---
Demographics + + + | Address | [address] | | | [place] [address] | + + + | Home Phone | | + + + | Preferred Language | Unknown | + + + | Marital Status | | + + + | Sikh Affiliation | 1041 | + + + | Race | White | + + + | Ethnic Group | Not or | + + + Author + + + | Author | [facility] | | | and [place] | + + + | Organization | [facility] | | | and [place] | + + + | Address | Unknown | + + + | Phone | Unavailable | + + + Support + + + + + | Name | Relationship | Address | Phone | + + + + + | Tera Mccarthy | ECON | [place] | | | | | [address] | | + + + + + | Alicia Mccarthy | ECON | [address] | | | | | [place] [address] | | + + + + + Care Team Providers + +------+ + | Care Live Source Operator Name | Role | Phone | + +------+ + | Brittany Meehan MD | PCP | | + +------+ + Reason for Visit + + + | Reason | Comments | + + + | Hypotension | | + + + | Tachycardia | | + + + Auth/Cert +--------+--------+ [...] | +--------+ + + + + | 05/28/ | Emergency | [facility] | Lele Lopez | SVT | | 2019 | | [facility] | DO Alex [address] | (supraventricular | | | | EMERGENCY CENTER | [address] [place], [place] | tachycardia) (FORMERLY [facility]) | | | | [address] | [address] | (Primary Dx); WINSOME | | | | [place], [place] | | (acute kidney | | | | [address] | | injury) (FORMERLY [facility]) | | | | [phone] | | | +--------+ + + + [...] + + + | Blood Pressure | 119/74 | 05/28/2019 3:30 PM | | | | | PDT | | + + + + + | Pulse | 71 | 05/28/2019 3:30 PM | | | | | PDT | | + + + + + | Temperature | 36.7 C (98 F) | 05/28/2019 3:30 PM | | | | | PDT | | + + + + + | Respiratory Rate | 14 | 05/28/2019 3:30 PM | | | | | PDT | | + + + + + | Oxygen Saturation | 97% | 05/28/2019 3:30 PM | | | | | PDT | | + + + + + | Inhaled Oxygen | - | - | | | Concentration | | | | + + + + + | Weight | 74.6 kg (164 lb 7.4 | 05/28/2019 12:44 PM | | | | oz) | PDT | | + + + + + | Height | 175.3 cm (5' 9") | 05/28/2019 12:44 PM | | | | | PDT | | + + + + + | Body Mass Index | 24.29 | 05/28/2019 12:44 PM | | | | | PDT [...] + documented as of this encounter Discharge Instructions AttachmentsThe following attachments cannot be sent through Care Everywhere.Kidney Injury, Acute, Discharge Instructions for (Maltese)Supraventricular Tachycardia (SVT), Understanding (Maltese)Supraventricular Tachycardia (SVT), Treatment for (Maltese)documented in this en counter Medications at Time of Discharge + + + +---------+ + + | Medication | Sig | Dispensed | Refills | Start | End Date | | | | | | Date | | + + + +---------+ + + | | as needed Takes as | | 0 | 03/05/20 | | | fluticasone-salmeter | needed. | | | 19 | | | ol (SAMSON GENAO | | | | | | | INHUB) 250-50 | | | | | | | mcg/puff diskus | | | | | | | inhaler | | | | | | + + + +---------+ + + | Cholecalciferol | Take by mouth. | | 0 | | | | (VITAMIN D3) 3000 | | | | | 9 | | units TABS | | | | | | + [...] + + documented as of this encounter ED Notes John Lele Alex, DO - 05/28/2019 1:[address] [facility] Department of Emergency Medicine Simon Mccarthy Emergency Department Encounter Note PCP:Brittany Meehan MD CHIEF COMPLAINT: Chief Complaint Patient presents with Hypotension Tachycardia ED Room: [id number] HPI Simon Mccarthy is a 79 y.o. male with a PMH including recent stroke, hypertension, hyperlip idemia who presents to the Emergency Department with a chief complaint of " fast heart rate. " The patient reports that he woke up feeling slightly lightheaded and when he took his blo od pressure he noted to be mildly low but his heart rate was up in the 150s which prompted t he emergency department visit today. He reports he is currently symptom-free. Upon my eval uation, the patient has normal heart rate. He denies any associated chest pain, difficulty breathing, shortness of breath, nausea, vomiting, abdominal pain or back pain. The patient has not otherwise been recently ill. 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 Hyperlipidemia Hyperlipidemia Hypertension Myalgia s/p lovastatin + meningitis Nasal and sinus discharge Occlusion of carotid artery PAD (peripheral artery disease) ([facility]) Polycythemia vera ([facility]) 2016 Renal stone Sciatica Sinusitis Chronic Stroke ([facility]) Trigeminy Ventricular pre-excitation Past Surgical History: Procedure Laterality Date COLONOSCOPY CORONARY ARTERY BYPASS GRAFT 2008 6 vessel/ RLE veing harvest CORONARY ARTERY BYPASS GRAFT EYE SURGERY L and R CEA 2010 NASAL SEPTUM SURGERY OTHER SURGICAL HISTORY CATARACT EXTRACTION TONSILLECTOMY AND ADENOIDECTOMY 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 fluticasone-salmeterol (ADVAIR, WIXELA INHUB) 250-50 mcg/puff diskus inhaler Inhale 1 p uff into the lungs 2 (two) times daily. losartan (COZAAR) 50 mg tablet Take 0.5 tablets by mouth Daily. metoprolol succinate (TOPROL-XL) 25 mg 24 hr tablet Take 1 tablet by mouth Daily. ALLERGIES Allergies Allergen Reactions Penicillins Rash Statins Other (See Comments) Cramping in the legs, muscle weakness Pravastatin Other (See Comments) FAMILY AND SOCIAL HISTORY Family History Problem Relation Age of [...] Drug use: No Comment: Drug use: No REVIEW OF SYSTEMS As in history of present illness. A 10 system review was otherwise negative. PHYSICAL EXAM VITAL SIGNS: (first vital signs):Temp: 37.4 C (99.4 F) Pulse: 136 Resp: 18 SpO2: 97 % B P: 108/68 Body mass index is 24.29 kg/m. General: Alert, no apparent distress. Elderly-appearing. Pleasant and conversant. Appear s comfortable sitting on the stretcher Eyes: Normal inspection, pupils equal, round, reactive to light, no scleral icterus ENT: Ears normal Nose normal Pharynx normal, uvula midline Neck: Normal inspection Supple Full ROM Cardiovascular: Normal rate and rhythm, no extra sounds No murmurs rubs or gallops Respiratory: No respiratory distress. No wheezing, rhonchi or rales. Normal excursion No retractions Abdomen: Soft, non-tender, non-distended Normal active bowel sounds Back: Normal inspection Without tenderness or deformity Skin: Color normal Warm and dry Extremities: GARY with equal pulses in the upper and lower extremities bilaterally Neuro: No gross motor/sensory deficit GCS 15 No cerebellar deficits Alert and oriented to person, place, time and situation. LABS Results Procedure Component Value Ref Range Date/Time Comprehensive Metabolic Panel [[id number]] (Abnormal) Collected: 05/28/191324 Order Status: Completed Specimen: Blood Updated: 05/28/19 1412 Na 142 135 - 145 mmol/L K 4.3 3.5 - 4.9 mmol/L Cl 109 99 - 109 mmol/L CO2 24 23 - 32 mmol/L Anion Gap 13 5 - 20 mmol/L Glucose 84 65 - 99 mg/dL BUN 15 8 - 25 mg/dL Creatinine 1.45 0.70 - 1.30 mg/dL BUN/Creatinine Ratio 10 Calcium 8.7 8.5 - 10.5 mg/dL Protein, Total 6.1 6.3 - 8.2 g/dL Albumin 4.0 3.3 - 4.8 g/dL Globulin 2.1 1.3 - 4.9 g/dL A/G Ratio 1.9 1.0 - 2.4 BILIRUBIN, TOTAL 0.9 0.1 - 1.5 mg/dL ALK PHOS 85 35 - 115 U/L AST 12 10 - 45 U/L ALT <7 10 - 65 U/L Estimated GFR 47 >60 mL/min/1.73m2 Phosphorus [[id number]] Collected: 05/28/191324 Order Status: Completed Specimen: Blood Updated: 05/28/191411 Phosphorus 3.4 2.3 - 4.8 mg/dL Magnesium [[id number]] Collected: 05/28/191324 Order Status: Completed Specimen: Blood Updated: 05/28/19 1412 Magnesium 1.9 1.7 - 2.4 mg/dL TSH, Reflex Free T4 [[id number]] Collected: 05/28/191324 Order Status: Completed Specimen: Blood Updated: 05/28/19 1412 TSH 3.630 0.450 - 5.100 uIU/mL Troponin I [[id number]] Collected: 05/28/191324 Order Status: Completed Specimen: Blood Updated: 05/28/191411 Troponin T 0.039 0.00 - 0.04 ng/mL CBC with Differential [[id number]] (Abnormal) Collected: 05/28/191324 Order Status: Completed Specimen: Blood Updated: 05/28/191346 WBC 7.15 3.80 - 11.00 K/uL RBC 5.11 4.20 - 5.70 M/uL Hemoglobin 14.5 13.2 - 17.0 g/dL Hematocrit 43.3 39.0 - 50.0 % MCV 84.7 80.0 - 100.0 fl MCH 28.5 27.0 - 34.0 pg MCHC 33.6 32.0 - 35.5 g/dL RDW-SD 45.9 37 - 53 fl Platelet Count 217 150 - 400 K/uL MPV 9.2 fl Diff Type AUTOMATED % Neutrophils 74.30 % % Lymphocytes 13.20 % Monocyte % 10.99 % Eosinophils % 0.67 % Basophils % 0.84 % Neutrophils, Absolute 5.31 1.90 - 7.40 K/uL Absolute Lymphocytes 0.94 1.00 - 3.90 K/uL Absolute Monocytes 0.79 0.00 - 0.80 K/uL Eosinophils, Absolute 0.05 0.00 - 0.50 K/uL Basophils, Absolute 0.06 0.00 - 0.10 K/uL IMAGING STUIDES Recent Results (from the past 360 hour(s)) [...] Nicolas Richard Sign Date/Time: 05/16/2019 6:23 PM XR Chest AP Portable Narrative CHEST [...] Castelan Tyson Sign Date/Time: 05/28/2019 1:35 PM Last Set of Vital Signs: Temp: 36.7 C (98 F) Pulse: 71 Resp: 14 SpO2: 97 % BP: 119/74 Medications - No data to display Vitals: 05/28/19 1330 05/28/19 1401 05/28/19 1500 05/28/19 1530 BP: 123/77 118/74 116/75 119/74 Pulse: 76 69 71 71 Resp: 16 18 16 14 Temp: 36.7 C (98 F) TempSrc: Temporal SpO2: 96% 94% 92% 97% Weight: Height: ====EKG Interpretation==== Time: 1254 Rate: 131 Rhythm: supraventricular tachycardia Shafter: Normal Intervals: QTC 443, QRS 96, no measurable IN interval ST: No significant ST elevations or depressions T Waves: Unremarkable Other: No ectopy, incomplete right bundle branch block Compared to ekg done multiple previous EKGs with no change Overall Impression: Non-specific EKG with supraventricular tachycardia Interpreted by Lele Lopez DO ====EKG Interpretation==== Time: 1317 Rate: 72 Rhythm: sinus rhythm with first-degree AV block Shafter: Normal Intervals: IN interval 228, QRS 102, QTc 381 ST: No significant ST elevations or depressions T Waves: Unremarkable Other: Incomplete right bundle branch block, no ectopy Compared to ekg done earlier today, now normal sinus rhythm Overall Impression: Non-specific EKG with incomplete right bundle branch block Interpreted by Lele Lopez DO MDM: The patient is a 79-year-old male presenting to the emergency department for evaluation of a fast heart rate. The patient took his blood pressure this morning where he noted the bloo d pressure to be mildly low however his heart rate was in the 150s. He denies ever having t his previously. He denied any associated chest pain with this. He denies any shortness of breath or difficulty breathing. Upon my evaluation, the patient is now in a normal sinus rh ythm. Repeat EKG demonstrated an abnormal rhythm. The previous EKG demonstrated supraventr icular tachycardia. There are no ischemic changes. I did note the mild ST segment elevatio n in V2 and V3 however this is unchanged from previous and his baseline EKG. The patient co ntinues to remain asymptomatic. He denies any ongoing symptoms. We will obtain screening l abs, place the patient on the hourly shift and reevaluate frequently. At this time, no u rgent/emergent intervention is necessary. The patient's labs demonstrated renal insufficiency with an elevated creatinine and decreas ed GFR. Otherwise, there is no significant electrolyte abnormality, other metabolic disorde r. The patient's troponin is within normal limits. There is no leukocytosis or anemia note d. The patient's chest x-ray demonstrated no acute cardiopulmonary process. The patient wa s reevaluated and observed in the emergency department for extended period of time with no r ecurrence of his elevated heart rate. The patient's initial EKG demonstrated supraventricul ar tachycardia. There are no signs of other infectious process or other metabolic disorder. The patient was instructed to follow-up closely with his primary care provider for reevalu ation otherwise I believe the patient is safe and stable for outpatient management and will be discharged. He continues to remain asymptomatic. I have discussed my clinical impression and treatment plan with the pt. We have specificall y discussed the signs and symptoms that would constitute the need for an immediate return to the ED, the importance of continued outpatient f/u and the importance of compliance with th e d/c instructions. I have answered any questions that the pt has to the best of my ability. Based upon the pt's history, physical exam, ED course, and diagnostic studies, I feel that there is no current emergent medical condition that warrants admission, transfer, or further ED treatment at this time. ED COURSE & MEDICAL DECISION MAKING Pertinent Labs & Imaging studies were reviewed along with EMS notes and group home record s if applicable. (See chart for details) Medications and Allergy list reviewed. Nurses note and old records were reviewed Discharge Medication List as of 05/28/2019 15:10 FINAL IMPRESSION ICD-10-CM ICD-9-CM 1. SVT (supraventricular tachycardia) (FORM[facility]LY [facility]) I47.1 427.89 2. WINSOME (acute kidney injury) ([facility]) N17.9 584.9 Follow-up Information Schedule an appointment as soon as possible for a visit with Brittany Meehan MD. Specialty: Family Medicine Contact information: [address] [place] [address] [facility]. Specialty: Emergency Medicine Why: As needed, If symptoms worsen Contact information: [place] [facility] [address] Lele Lopez D.O. This document has been prepared with a voice recognition system. The possibility of "sound alike" senior account representative errors, addition and/or deletions may occur. If there is any question p lease contact the author of the document. Procedures Lele Lopez DO 05/30/19920 BeaverLizette RN - 05/28/2019 1:00 PM PDTPatient presents with palpitations with tachycardia with a low B P that he noted on a home monitor this a.m. He denies chest pain but does endorse recent gen eralized weakness. [facility] umented in this encounter Plan of Treatment +--------+---------+ + + + | Date | Type | Specialty | Care Team | Description | +--------+---------+ + + + | 06/25/ | Office | Cardiology | Connie Alvarez | | | 2019 | Visit | | [address] | | | | | | [address] | | | | | | [place] [address] | | | | | | [phone] | | | | | | | | +--------+---------+ + + + documented as of this encounter Procedures + +--------+ + + + | Procedure Name | Priori | Date/Time | Associated Diagnosis | Comments | | | ty | | | | + +--------+ + + + | XR CHEST AP PORTABLE | PILY | 05/28/2019 | | Results for this | | | | 1:32 PM | | procedure are in the | | | | PDT | | results section. | + +--------+ + + + | TSH, REFLEX FREE T4 | STAT | 05/28/2019 | | Results for this | | | | 1:25 PM | | procedure are in the | | | | PDT | | results section. | + +--------+ + + + | TROPONIN I | STAT | 05/28/2019 | | Results for this | | | | 1:25 PM | | procedure are in the | | | | PDT | | results section. | + +--------+ + + + | CBC WITH | STAT | 05/28/2019 | | Results for this | | DIFFERENTIAL | | 1:25 PM | | procedure are in the | | | | PDT | | results section. | + +--------+ + + + | PHOSPHORUS | STAT | 05/28/2019 | | Results for this | | | | 1:25 PM | | procedure are in the | | | | PDT | | results section. | + +--------+ + + + | MAGNESIUM | STAT | 05/28/2019 | | Results for this | | | | 1:25 PM | | procedure are in the | | | | PDT | | results section. | + +--------+ + + + | COMPREHENSIVE | STAT | 05/28/2019 | | Results for this | | METABOLIC PANEL | | 1:25 PM | | procedure are in the | | | | PDT | | results section. | + +--------+ + + + | ECG 12 LEAD | STAT | 05/28/2019 | | Results for this | | | | 1:17 PM | | procedure are in the | | | | PDT | | results section. | + +--------+ + + + | ECG 12 LEAD | Routin | 05/28/2019 | | Results for this | | | e | 12:54 PM | | procedure are in the | | | | PDT | | results section. | + +--------+ + + + documented in this encounter Results XR Chest AP Portable (05/28/2019 1:32 PM PDT) + + | Specimen | + + | | + + + + + | Narrative | Performed At | + + + | CHEST PORTABLE ONE VIEW CLINICAL INFORMATION: Hypotension, | [facility] | | tachycardia. COMPARISON: CHEST W/O CONTRAST (07/13/2013); CHEST | | | PA (04/03/2013); XR CHEST 2 VIEWS (02/24/2010); FINDINGS: Heart, | | | lungs and vessels normal. Intact median sternotomy. No | | | pneumothorax, pleural effusion or adenopathy. No significant bone | | | abnormality. Left axillary/chest calcification is unchanged. | | | IMPRESSION: No acute cardiopulmonary process. Signed by: | | | Jay Jay Castelan Tyson Sign Date/Time: 05/28/2019 1:35 PM | | + + + + + | Procedure Note | + + | Frantz, Rad Results In - 05/28/2019 1:39 PM PDT | | CHEST PORTABLE ONE VIEW | | | | CLINICAL INFORMATION: | | Hypotension, tachycardia. | | | | COMPARISON: | | CHEST W/O CONTRAST (07/13/2013); CHEST PA (04/03/2013); XR CHEST 2 VIEWS | | (02/24/2010); | | | | FINDINGS: | | Heart, lungs and vessels normal. Intact median sternotomy. No | | pneumothorax, pleural effusion or adenopathy. No significant bone | | abnormality. Left axillary/chest calcification is unchanged. | | | | IMPRESSION: | | No acute cardiopulmonary process. | | | | | | | | Signed by: Jay Jay Castelan Tyson | | Sign Date/Time: 05/28/2019 1:35 PM | + + + +---------+ + + | Performing | Address | City/State/[facility] | Phone Number | | Organization | | | | + +---------+ + + | [facility] | | | | + +---------+ + + Troponin I (05/28/2019 1:25 PM PDT) + + + + + + | Component | Value | Ref Range | Performed | Pathologist | | | | | At | Signature | + + + + + + | Troponin I | 0.039Comment: 0.04 | 0.00 - 0.04 | [facility] [...] | | | [facility];[address] [facility] | | | | | | [address];[place] [address] | | | | + + + + + + + + | Specimen | + + | Blood | + + + + + + + | Performing | Address | City/State/Zipcode | Phone Number | | Organization | | | | + + + + + | [facility] | [address] | [place] [address] | [phone] | + + + + + TSH, Reflex Free T4 (05/28/2019 1:25 PM PDT) + + + + + + | Component | Value | Ref Range | Performed | Pathologist | | | | | At | Signature | + + + + + + | TSH | 3.630Comment: Testing | 0.450 - 5.100 | [facility] | | | | performed at [facility];[address] | uIU/mL | LABORATORY | | | | [address];[place], [place] | | | | | | [address] | | | | + + + + + + + + | Specimen | + + | Blood | + + + + + + + | Performing | Address | City/State/Zipcode | Phone Number | | Organization | | | | + + + + + | [facility] | [address] | [place] [address] | [phone] | + + + + + Magnesium (05/28/2019 1:25 PM PDT) + + + + + + | Component | Value | Ref Range | Performed | Pathologist | | | | | At | Signature | + + + + + + | Magnesium | 1.9Comment: Testing | 1.7 - 2.4 mg/dL | [facility] | | | | performed at [facility];[address] | | LABORATORY | | | | [address];[place] | | | | | | [address] | | | | + + + + + + + + | Specimen | + + | Blood | + + + + + + + | Performing | Address | City/State/Zipcode | Phone Number | | Organization | | | | + + + + + | [facility] | [address] | [place] [address] | [phone] | + + + + + Phosphorus (05/28/2019 1:25 PM PDT) + + + + + + | Component | Value | Ref Range | Performed | Pathologist | | | | | At | Signature | + + + + + + | Phosphorus | 3.4Comment: Testing | 2.3 - 4.8 mg/dL | [facility] | | | | performed at [facility];[address] | | LABORATORY | | | | [address];[place] | | | | | | [address] | | | | + + + + + + + + | Specimen | + + | Blood | + + + + + + + | Performing | Address | City/State/Zipcode | Phone Number | | Organization | | | | + + + + + | [facility] | [address] | [place] [address] | [phone] | + + + + + Comprehensive Metabolic Panel (05/28/2019 1:25 PM PDT) + + + + + [...] + + + + | CO2 | 24 | 23 - 32 mmol/L | [facility] | | | | | | LABORATORY | | + + + + + + | Anion Gap | 13 | 5 - 20 mmol/L | [facility] | | | | | | LABORATORY | | + + + + + + | Glucose | 84 | 65 - 99 mg/dL | [facility] | | | | | | LABORATORY | | + + + + + + | BUN | 15 | 8 - 25 mg/dL | [facility] | | | | | | LABORATORY | | + + + + + + | Creatinine | 1.45 (H) | 0.70 - 1.30 | [facility] | | | | | mg/dL | LABORATORY | | + + + + + + | BUN/Creatin | 10 | | [facility] | | | ine Ratio | | | LABORATORY | | + + + + + + | Calcium | 8.7 | 8.5 - 10.5 | [facility] | [...] + + + + | BILIRUBIN, | 0.9 | 0.1 - 1.5 mg/dL | [facility] | | | TOTAL | | | LABORATORY | | + + + + + + | ALK PHOS | 85 | 35 - 115 U/L | [facility] | | | | | | LABORATORY | | + + + + + + | AST | 12 | 10 - 45 U/L | [facility] | | | | | | LABORATORY | | + + + + + + | ALT | <7 (L) | 10 - 65 U/L | [facility] | | | | | | LABORATORY | | + + + + + + | Estimated | 47 (L)Comment: GFR <60: | >60 | [facility] [...] | performed at [facility];[address] | | | | | | [facility];[place], [place] | | | | | | [address] | | | | + + + + + + + + | Specimen | + + | Blood | + + + + + + + | Performing | Address | City/State/Zipcode | Phone Number | | Organization | | | | + + + + + | [facility] | [address] | [place] [address] | [phone] | + + + + + CBC with Differential (05/28/2019 1:25 PM PDT) + + + + + + | Component | Value | Ref Range | Performed | Pathologist | | | | | At | Signature | + + + + + + | WBC | 7.15 | 3.80 - 11.00 | [facility] | | | | | K/uL | LABORATORY | | + + + + + + | Red Blood | 5.11 | 4.20 - 5.70 | [facility] | | | Cells | | M/uL | LABORATORY | | + + + + + + | Hemoglobin | 14.5 | 13.2 - 17.0 | [facility] | | | | | g/dL | LABORATORY | | + + + + + + | Hematocrit | 43.3 | 39.0 - 50.0 % | [facility] | | | | | | LABORATORY | | + + + + + + | MCV | 84.7 | 80.0 - 100.0 fl | [facility] | | | | | | LABORATORY | | + + + + + + | MCH | 28.5 | 27.0 - 34.0 pg | [facility] [...] + + + + | Platelet | 217 | 150 - 400 K/uL | [facility] | | | Count | | | LABORATORY | | + + + + + + | MPV | 9.2 | fl | [facility] | | | | | | LABORATORY | | + + + + + + | Diff Type | AUTOMATED | | [facility] | | | | | | LABORATORY | | + + + + + + | % | 74.30 | % | [facility] | | | Neutrophils | | | LABORATORY | | + + + + + + | % | 13.20 | % | [facility] | | | Lymphocytes | | | LABORATORY | | + + + + + + | Monocyte % | 10.99 | % | [facility] | | | | | | LABORATORY | | + + + + + + | Eosinophils | 0.67 | % | [facility] | | | % | | | LABORATORY | | + + + + + + | Basophils % | 0.84 | % | [facility] | | | | | | LABORATORY | | + + + + + + | Neutrophils | 5.31 | 1.90 - 7.40 | [facility] | | | , Absolute | | K/uL | LABORATORY | | + + + + + + | Absolute | 0.94 (L) | 1.00 - 3.90 | [facility] | | | Lymphocytes | | K/uL | LABORATORY | | + + + + + + | Absolute | 0.79 | 0.00 - 0.80 | [facility] | | | Monocytes | | K/uL | LABORATORY | | + + + + + + | Eosinophils | 0.05 | 0.00 - 0.50 | [facility] | | | , Absolute | | K/uL | LABORATORY | | + + + + + + | Basophils, | 0.06Comment: Testing | 0.00 - 0.10 | [facility] | | | Absolute | performed at [facility];[address] | K/uL | LABORATORY | | | | [address];[place] | | | | | | [address] | | | | + + + + + + + + | Specimen | + + | Blood | + + + + + + + | Performing | Address | City/State/Zipcode | Phone Number | | Organization | | | | + + + + + | [facility] | [address] | [place] [address] | [phone] | + + + + + ECG 12 lead (05/28/2019 1:17 PM PDT) + + + + + + | Component | Value | Ref Range | Performed | Pathologist | | | | | At | Signature | + + + + + + | VENTRICULAR | 72 | BPM | [facility] | | | RATE EKG | | | | | + + + + + + | ATRIAL RATE | 72 | BPM | [facility] | | [...] + + + + | Q-T | 348 | ms | [facility] | | | INTERVAL | | | | | + + + + + + | Q-T | 381 | ms | [facility] | | | INTERVAL | | | | | | (CORRECTED) | | | | | + + + + + + | P WAVE AXIS | 6 | degrees | [facility] | | + + + + + + | QRS AXIS | 1 | degrees | [facility] | | + + + + + + | T AXIS | 50 | degrees | [facility] | | [...] of | | | | | | -APR-2019 | | | | | | 14:42,Previous ECG has | | | | | [...] (500), | | | | | | make up editor SHELBI GUERRA | | | | | | ([id number]) on 05/29/2019 | | | | | | 5:02:41 AM | | | | + + [...] + +---------+ + + ECG 12 lead (05/28/2019 12:54 PM PDT) + + + + + + | Component | Value | Ref Range | Performed | Pathologist | | | | | At | Signature | + + + + + + | VENTRICULAR | 131 | BPM | [facility] | | | RATE EKG | | | | | + + + + + + | ATRIAL RATE | 93 | BPM | [facility] | | + + + + + + | QRS | 96 | ms | [facility] | | | DURATION | | | | | + + + + + + | Q-T | 300 | ms | [facility] | | | INTERVAL | | | | | + + + + + + | Q-T | 443 | ms | [facility] | | | INTERVAL | | | | | | (CORRECTED) | | | | | + + + + + + | QRS AXIS | 2 | degrees | [facility] | | + + + + + + | T AXIS | 32 | degrees | [facility] | | + + + + + + | INTERPRETAT | Supraventricular | | [facility] | | | ION TEXT | tachycardiaIncomplete | | | | | | right bundle branch | | | | | | blockInferior infarct , | | | | | | age undeterminedAbnormal | | | | | | ECGWhen compared with | | | | | | ECG of 23-MAY-2019 | | | | | | 14:42,Previous ECG has | | | | | [...] (500), | | | | | | make up editor SHELBI GUERRA | | | | | | ([id number]) on 05/29/2019 | | | | | | 5:02:40 AM | | | | + + [...] | | dysrhythmias | + + | WINSOME (acute kidney injury) (HCC) Acute kidney failure, unspecified | + + documented in this encounter
--- OUTSIDE RECORDS SUMMARY | ~2020-05-18 | XMS | Encounter Summary ---
Demographics + + + | Address | [address] | | | [place] [address] | + + + | Home Phone [...] | Author | [facility] | | | and [place] | + + + | Organization | [facility] | | | and [place] | + + + | Address | Unknown | + + + | Phone | Unavailable | + + + Support + + + + + | Name | Relationship | Address | Phone | + + + + + | Tera Mccarthy | ECON | [place], [place] | | | | | [address] | | + + + + + | Alicia Mccarthy | ECON | [address] | | | | | [place] [address] | | + + + + + Care Team Providers + +------+ + | Care Construction Technology Instructor Name | Role | Phone | + [...] + + | 05/24/ | Telephone | [facility] | Sammie Reese, | Follow-up | | 2019 | | NEUROLOGY [address] | | | | [address] | [facility] | | | | | [place], [place] | [place] [address] | | | | | [address] | [phone] | | | | | [phone] | | | +--------+ + + + [...] Miscellaneous Notes Telephone Encounter - Ciara Dias Steward/Stewardess Banquet - 05/24/2019 2:32 PM PDTL/M for Patient to inform him he is scheduled for a follow-up on Jun 25 10:45am with Dr. Reese.E lectronically signed by Ciara Dias Steward/Stewardess Banquet at 05/24/2019 2:34 PM PDTTelepho ne Encounter - Ciara Dias Steward/Stewardess Banquet - 05/24/2019 2:32 PM PDT----- Message fr [...] back in 4 weeks. Thanks Poly Alvarez [facility] Cardiology docum ented in this encounter [...] | | | | | [place] [address] | | | | | | [phone] | | | | | | | | +--------+---------+ + + + documented as of this encounter Visit Diagnoses Not on filedocumented in this encounter"
--- OUTSIDE RECORDS SUMMARY | ~2020-05-18 | XMS | Encounter Summary ---
Demographics + + + | Address | [address] | | | [place] [address] | + + + | Home Phone [...] + + | Author | [facility] | | | and [place] | + + + | Organization | [facility] | | | and [place] | + + + | Address | Unknown | + + + | Phone | Unavailable | + + + Support + + + + + | Name | Relationship | Address | Phone | + + + + + | Tera Mccarthy | ECON | [place], [place] | | | | | [address] | | + + + + + | Alicia Mccarthy | ECON | [address] | | | | | [place] [address] | | + + + + + Care Team Providers + +------+ + | Care Reconciliation Coordinator Name | Role | Phone | + +------+ + | Bob Banks MD | PCP | | + +------+ + Encounter Details +--------+ + + + + | Date | Type | Department | Care Team | Description | +--------+ + + + + | 07/09/ | Orders Only | [facility] | Yesy Crum | Mixed | | 2019 | | [address] | I, Ball Holder | hyperlipidemia; | | | | [place], [place] | | Hypertension goal BP | | | | [address] | | (blood pressure) < | | | | [phone] | | 140/80; Encounter | | | | | | for monitoring | | | | | | digoxin therapy; | | | | | | Hospital discharge | | | | | | follow-up | +--------+ + + + + Social [...] | 06/25/ | Office | Cardiology | Connei Alvarez | | | 2019 | Visit | | [address] | | | | | | [address] | | | | | | [place] [address] | | | | | | [phone] | | | | | | | | +--------+---------+ + + + documented as of this encounter Procedures + +--------+ + + + | Procedure Name | Priori | Date/Time | Associated Diagnosis | Comments | | | ty | | | | + +--------+ + + + | DIGOXIN LEVEL | Routin | 07/09/2019 | Encounter for | Results for this | | | e | 12:16 PM | monitoring digoxin | procedure are in the | | | | PDT | therapy | results section. | + +--------+ + + + | BASIC METABOLIC | Routin | 07/09/2019 | Hypertension goal | Results for this | | PANEL | e | 12:16 PM | BP (blood pressure) | procedure are in the | | | | PDT | < 140/80 Encounter | results section. | | | | | for monitoring | | | | | | digoxin therapy | | + +--------+ + + + documented in this encounter Results Digoxin Level (07/09/2019 12:16 PM PDT) + + + + + + | Component | Value | Ref Range | Performed | Pathologist | | | | | At | Signature | + + + + + + | Date of | [id number] | | REFERENCE | | | Last [...] | | | level | performed at [facility];[address] | ng/mL | LAB | | | | [place] | | [facility] | | | | [address];[place] [address] | | LABORATORY | | + + + + + + + + | Specimen | + + | Blood | + + + + + + + | Performing | Address | City/State/Zipcode | Phone Number | | Organization | | | | + + + + + | REFERENCE LAB | [address] [place] [address] | [place], [place] | [phone] | | [facility] | [address] | [address] | | | LABORATORY | | | | + + + + + | REFERENCE LAB | [address] [place] [address] | [place], [place] | | | [facility] | [address] | [address] | | | LABORATORY | | | | + + + + + Basic Metabolic Panel (07/09/2019 12:16 PM PDT) [...] | | | | | performed at [facility];[address] | | | | | | [facility] | | | | | | Blvd;[place] [address] | | | | | | | | | | + + + + + + + + | Specimen | + + | Blood | + + + + + + + | Performing | Address | City/State/Zipcode | Phone Number | | Organization | | | | + + + + + | REFERENCE LAB | [address] [facility] | [place] | [phone] | | [facility] | [address] | [address] | | | LABORATORY | | | | + + + + + | REFERENCE LAB | [address] | [place] | | | [facility] | [place] | [address] | | | LABORATORY | | | | + + + + + documented in this encounter Visit Diagnoses + + | Diagnosis | + + | Mixed hyperlipidemia | + + | Hypertension goal BP (blood pressure) < 140/80 Unspecified essential hypertension | + + | Encounter for monitoring digoxin therapy Encounter for therapeutic drug monitoring | + + | Hospital discharge follow-up Other follow-up examination | + + documented in this encounter"
--- OUTSIDE RECORDS SUMMARY | ~2020-05-18 | XMS | Encounter Summary ---
Demographics + + + | Address | [address] | | | [place] [address] | + + + | Home Phone [...] Author | [facility] | | [...] [place], [place] | | | | | [address] | | + + + + + | Alicia Mccarthy | ECON | [address] | | | | | [place] [address] | | + + + + + Care Team Providers + +------+ + | Care Group Fitness Manager Name | Role | Phone | + +------+ + | Matias Muñoz MD | PCP | | + +------+ + Encounter Details +--------+ + + + + | Date | Type | Department | Care Team | Description | +--------+ + + + + | 05/16/ | Orders Only | [facility] | Connie Alvarez | | | 2017 | | [facility] | [address] | | | | | [place] [address] | [address] | | | | | [place], [place] | [place] [address] | | | | | [address] | [phone] | | | | | [phone] | | | +--------+ + + + [...] | +--------+---------+ + + + | 06/25/ Office | Cardiology | Connie Alvarez | | | 2019 | Visit | | [address] | | | | | | [address] | | | | | | [place] [address] | | | | | | [phone] | | | | | | | | +--------+---------+ + + + documented as of this encounter Procedures + +--------+ + + + | Procedure Name | Priori | Date/Time | Associated Diagnosis | Comments | | | ty | | | | + +--------+ + + + | [place] COMPLETE | Routin | 05/16/2018 | | Results for this | | | e | 11:57 AM | | procedure are in the | | | | PDT | | results section. | + +--------+ + + + documented in this encounter Results [place] Complete (05/16/2018 11:57 AM PDT) + + | Specimen | + + | | + + + + + | Impressions | Performed At | + + + | 1. Overall left ventricular systolic function is normal with, an EF | | | between 60 - 65 %. 2. Moderate asymmetric septal hypertrophy with | | | septal thickness 16 - 19 mm. 3. The diastolic filling pattern | | | indicates impaired relaxation consistent with mild dysfunction (Grade | | | I). 4. There is mild aortic regurgitation. 5. Dazg-uw-gzjyrgwf | | | mitral regurgitation is present. | | + + + + + + | Narrative | Performed At | + + + | Patient Name: SIMON MCCARTHY Date of : 1940 | | | Performing Physician: Nasir Lim MD, | | | FACC, FACP, FASNC | | | | | | INDICATIONS CAD, HX of CABG, HTN, Murmur, carotid artery | | | stenosis CONCLUSIONS 1. Overall left ventricular | | | systolic function is normal with, an EF between 60 - 65 %. 2. | | | Moderate asymmetric septal hypertrophy with septal thickness 16 - 19 | | | mm. 3. The diastolic filling pattern indicates impaired relaxation | | | consistent with mild dysfunction (Grade I). 4. There is mild aortic | | | regurgitation. 5. Hdjh-yz-aralgctj mitral regurgitation is present. | | | FINDINGS -------- ECG rhythm: Resting bradycardia (HR<60bpm). | | | Study: A 2-dimensional transthoracic echocardiogram with m-mode, | | | spectral and color flow Doppler was perfomed. Study: This was a | | | technically adequate study. Left Ventricle: Overall left ventricular | | | systolic function is normal with, an EF between 60 - 65 %. Left | | | Ventricle: The left ventricle cavity size is normal. Left Ventricle: | | | Left ventricular wall thickness is normal. Left Ventricle: Moderate | | | asymmetric septal hypertrophy with septal thickness 16 - 19 mm. Left | | | Ventricle: The diastolic filling pattern indicates impaired relaxation | | | consistent with mild dysfunction (Grade I). Right Ventricle: The | | | right ventricle is normal in size and function. Left Atrium: The left | | | atrium is normal in size. Right Atrium: The right atrium is normal | | | in size. Aortic Valve: The aortic valve is mildly calcified. Aortic | | | Valve: There is mild aortic regurgitation. Aortic Valve: There is no | | | evidence of aortic stenosis. 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 Mitral Valve: Uvfj-zv-qhpkcmdc mitral | | | regurgitation is present. Mitral Valve: Mild mitral annular | | | calcification present. Tricuspid Valve: The tricuspid valve appears | | | structurally normal. Tricuspid Valve: Mild tricuspid regurgitation | | | present. Tricuspid Valve: There is no evidence of pulmonary | | | hypertension. Pulmonic Valve: The pulmonic valve is normal. Pulmonic | | | Valve: Mild pulmonic regurgitation. Pericardium: There is no | | | pericardial effusion. IVC/Hepatic Veins: The IVC was not well | | | visualized. Mass: No mass visualized Thrombus: No clot visualized | | | Septum: No ASD observed. Septum: No VSD observed. MEASUREMENTS | | | HAY Planimetry: 2.05 cm2 AVAI Planimetry: 0.00 | | | cm2/m2 Ao asc: 4.02 cm Ao sinus: 3.50 cm EDV(Teich): 59.76 | | | ml IVSd: 1.28 cm LVIDd: 3.74 cm LVPWd: 0.82 cm LVOT | | | Diam: 2.16 cm %FS: 25.94 % EF(Teich): 51.76 % ESV(Teich): | | | 28.82 ml LVIDs: 2.77 cm SV(Teich): 30.93 ml LVEF MOD A2C: | | | 55.46 % SV MOD A2C: 41.62 ml LVEF MOD A4C: 63.80 % SV MOD | | | A4C: 54.78 ml EF Biplane: 60.18 % LVEDV MOD BP: 82.54 ml | | | LVESV MOD BP: 32.86 ml LVEDV MOD A2C: 75.05 ml LVLd A2C: | | | 7.79 cm LVEDV MOD A4C: 85.86 ml LVLd A4C: 8.36 cm LVESV MOD | | | A2C: 33.42 ml LVLs A2C: 7.21 cm LVESV MOD A4C: 31.07 ml | | | LVLs A4C: 6.88 cm LAESV(A-L): 53.81 ml LAESV Index (A-L): | | | 27.17 ml/m2 LAAs A2C: 19.81 cm2 LAESV A-L A2C: 59.82 ml LAESV | | | MOD A2C: 57.73 ml LALs A2C: 5.56 cm LAAs A4C: 17.82 cm2 | | | LAESV A-L A4C: 48.21 ml LAESV MOD A4C: 46.11 ml LALs A4C: | | | 5.59 cm RAAs: 16.41 cm2 RAESV A-L: 38.38 ml RAESV MOD: | | | 36.95 ml RALs: 5.95 cm Ao Diam: 3.97 cm Ao/LA: 0.77 LA | | | Diam: 5.11 cm LA/Ao: 1.28 TAPSE: 0.98 cm AV Env.Ti: | | | 330.44 ms AV maxP.56 mmHg AV meanP.36 mmHg AV Vmax: | | | 1.05 m/s AV Vmean: 0.71 m/s AV VTI: 23.60 cm HAY Vmax: | | | 3.41 cm2 HAY (VTI): 3.44 cm2 AVAI Vmax: 0.00 cm2/m2 AVAI | | | (VTI): 0.00 cm2/m2 LVOT Env.Ti: 318.33 ms LVOT maxP.85 | | | mmHg LVOT meanP.14 mmHg LVSI Dopp: 41.10 ml/m2 LVSV Dopp: | | | 81.38 ml LVOT Vmax: 0.98 m/s LVOT Vmean: 0.69 m/s LVOT | | | VTI: 22.17 cm MV A Carl: 1.11 m/s MV Dec [facility]: 3.15 m/s2 | | | MV DecT: 292.73 ms MV E Carl: 0.92 m/s MV E/A Ratio: 0.82 | | | E/E' Av.94 E' Av.03 m/s E/E' Lat: 19.14 E/E' | | | Sept: 35.79 E' Lat: 0.04 m/s E' Sept: 0.02 m/s PV maxPG: | | | 2.64 mmHg PV Vmax: 0.81 m/s RV S': 0.03 m/s TR maxPG: | | | 18.27 mmHg TR Vmax: 2.13 m/s TV A Carl: 0.41 m/s TV Dec [facility]: | | | 2.10 m/s2 TV Dec Time: 202.82 ms TV E Carl: 0.42 m/s TV | | | E/A Ratio: 1.01 Greenhouse Manager: JULIA Authenticated by: Nasir | | | Carina MELENDEZ, FACC, FACP, FASROYAL Report Date/Time: -- [id number] | | | | | + + + + + | Procedure Note | + + | Alfred Landry Conversion - 05/17/2019 4:27 PM PDT Patient Name: SIMON MCCARTHY | | of : 1940 Performing Physician: Nasir Lim MD, [facility], | | FACP, | | FASNC INDICATIONS--------- | | --CAD, HX of CABG, HTN, Murmur, carotid artery stenosis CONCLUSIONS 1. Overall | | left ventricular systolic function is normal with, an EF between 60 - 65 %.2. Moderate | | asymmetric septal hypertrophy with septal thickness 16 - 19 mm.3. The diastolic filling | | pattern indicates impaired relaxation consistent with mild dysfunction (Grade I).4. | | There is mild aortic regurgitation.5. Vhne-zy-sxdprewm mitral regurgitation is present. | | FINDINGS--------ECG rhythm: Resting bradycardia (HR<60bpm).Study: A 2-dimensional | | transthoracic echocardiogram with m-mode, spectral and color flow Doppler was | | perfomed.Study: This was a technically adequate study.Left Ventricle: Overall left | | ventricular systolic function is normal with, an EF between 60 - 65 %.Left Ventricle: | | The left ventricle cavity size is normal.Left Ventricle: Left ventricular wall thickness | | is normal.Left Ventricle: Moderate asymmetric septal hypertrophy with septal thickness | | 16 - 19 mm.Left Ventricle: The diastolic filling pattern indicates impaired relaxation | | consistent with mild dysfunction (Grade I).Right Ventricle: The right ventricle is | | normal in size and function.Left Atrium: The left atrium is normal in size.Right Atrium: | | The right atrium is normal in size.Aortic Valve: The aortic valve is mildly | | calcified.Aortic Valve: There is mild aortic regurgitation.Aortic Valve: There is no | | evidence of aortic stenosis.Mitral Valve: Mitral valve is thickened with nodular | | degeneration.Mitral Valve: Lnds-ms-xalxkxsl mitral regurgitation is present.Mitral | | Valve: Mild mitral annular calcification present.Tricuspid Valve: The tricuspid valve | | appears structurally normal.Tricuspid Valve: Mild tricuspid regurgitation | | present.Tricuspid Valve: There is no evidence of pulmonary hypertension.Pulmonic Valve: | | The pulmonic valve is normal.Pulmonic Valve: Mild pulmonic regurgitation.Pericardium: | | There is no pericardial effusion.IVC/Hepatic Veins: The IVC was not well | | visualized.Mass: No mass visualizedThrombus: No clot visualizedSeptum: No ASD | | observed.Septum: No VSD observed. MEASUREMENTS HAY Planimetry: 2.05 | | [id number] Planimetry: 0.00 cm2/m2Ao asc: 4.02 cmAo sinus: 3.50 cmEDV(Teich): 59.76 | | mlIVSd: 1.28 cmLVIDd: 3.74 cmLVPWd: 0.82 cmLVOT Diam: 2.16 cm%FS: 25.94 | | %EF(Teich): 51.76 %ESV(Teich): 28.82 mlLVIDs: 2.77 cmSV(Teich): 30.93 mlLVEF MOD | | A2C: 55.46 %SV MOD A2C: 41.62 mlLVEF MOD A4C: 63.80 %SV MOD A4C: 54.78 mlEF | | Biplane: 60.18 %LVEDV MOD BP: 82.54 mlLVESV MOD BP: 32.86 mlLVEDV MOD A2C: 75.05 | | mlLVLd A2C: 7.79 cmLVEDV MOD A4C: 85.86 mlLVLd A4C: 8.36 cmLVESV MOD A2C: 33.42 | | mlLVLs A2C: 7.21 cmLVESV MOD A4C: 31.07 mlLVLs A4C: 6.88 cmLAESV(A-L): 53.81 | | mlLAESV Index (A-L): 27.17 ml/m2LAAs A2C: 19.81 [id number] A-L A2C: 59.82 mlLAESV | | MOD A2C: 57.73 mlLALs A2C: 5.56 cmLAAs A4C: 17.82 lt9MROUN A-L A4C: 48.21 | | mlLAESV MOD A4C: 46.11 mlLALs A4C: 5.59 cmRAAs: 16.41 [id number] A-L: 38.38 | | mlRAESV MOD: 36.95 mlRALs: 5.95 cmAo Diam: 3.97 cmAo/LA: 0.77LA Diam: 5.11 | | cmLA/Ao: 1.28TAPSE: 0.98 cmAV Env.Ti: 330.44 msAV maxP.56 mmHgAV meanPG: | | 2.36 mmHgAV Vmax: 1.05 m/Phillip Vmean: 0.71 m/Phillip VTI: 23.60 cmAVA Vmax: 3.41 | | cm2AVA (VTI): 3.44 kn5SAVH Vmax: 0.00 cm2/m2AVAI (VTI): 0.00 cm2/m2LVOT Env.Ti: | | 318.33 msLVOT maxP.85 mmHgLVOT meanP.14 mmHgLVSI Dopp: 41.10 ml/m2LVSV | | Dopp: 81.38 mlLVOT Vmax: 0.98 m/sLVOT Vmean: 0.69 m/sLVOT VTI: 22.17 cmMV A Carl: | | 1.11 m/sMV Dec [facility]: 3.15 m/s2MV DecT: 292.73 msMV E Carl: 0.92 m/sMV E/A | | Ratio: 0.82E/E' Av.94E' Av.03 m/sE/E' Lat: 19.14E/E' Sept: 35.79E' | | Lat: 0.04 m/sE' Sept: 0.02 m/sPV maxP.64 mmHgPV Vmax: 0.81 m/sRV S': 0.03 | | m/sTR maxP.27 mmHgTR Vmax: 2.13 m/sTV A Carl: 0.41 m/sTV Dec [facility]: 2.10 | | m/s2TV Dec Time: 202.82 msTV E Carl: 0.42 m/sTV E/A Ratio: 1.01 Greenhouse Manager: | | RKAuthenticated by: Nasir Lim MD, FACC, FACP, FASNCReport Date/Time: -- | | [id number]:[id number] IMPRESSION: 1. Overall left ventricular systolic function is | | normal with, an EF between 60 - 65 %.2. Moderate asymmetric septal hypertrophy with | | septal thickness 16 - 19 mm.3. The diastolic filling pattern indicates impaired | | relaxation consistent with mild dysfunction (Grade I).4. There is mild aortic | | regurgitation.5. Mveu-yv-fkddwhrq mitral regurgitation is present. | |Ao sinus: 3.50 cm | |EDV(Teich): 59.76 ml | |IVSd: 1.28 cm | |LVIDd: 3.74 cm | |LVPWd: 0.82 cm | |LVOT Diam: 2.16 cm | |%FS: 25.94 % | |EF(Teich): 51.76 % | |ESV(Teich): 28.82 ml | |LVIDs: 2.77 cm | |SV(Teich): 30.93 ml | |LVEF MOD A2C: 55.46 % | |SV MOD A2C: 41.62 ml | |LVEF MOD A4C: 63.80 % | |SV MOD A4C: 54.78 ml | |EF Biplane: 60.18 % | |LVEDV MOD BP: 82.54 ml | |LVESV MOD BP: 32.86 ml | |LVEDV MOD A2C: 75.05 ml | |LVLd A2C: 7.79 cm | |LVEDV MOD A4C: 85.86 ml | |LVLd A4C: 8.36 cm | |LVESV MOD A2C: 33.42 ml | |LVLs A2C: 7.21 cm | |LVESV MOD A4C: 31.07 ml | |LVLs A4C: 6.88 cm | |LAESV(A-L): 53.81 ml | |LAESV Index (A-L): 27.17 ml/m2 | |LAAs A2C: 19.81 cm2 | |LAESV A-L A2C: 59.82 ml | |LAESV MOD A2C: 57.73 ml | |LALs A2C: 5.56 cm | |LAAs A4C: 17.82 cm2 | |LAESV A-L A4C: 48.21 ml | |LAESV MOD A4C: 46.11 ml | |LALs A4C: 5.59 cm | |RAAs: 16.41 cm2 | |RAESV A-L: 38.38 ml | |RAESV MOD: 36.95 ml | |RALs: 5.95 cm | |Ao Diam: 3.97 cm | |Ao/LA: 0.77 | |LA Diam: 5.11 cm | |LA/Ao: 1.28 | |TAPSE: 0.98 cm | |AV Env.Ti: 330.44 ms | |AV maxP.56 mmHg | |AV meanP.36 mmHg | |AV Vmax: 1.05 m/s | |AV Vmean: 0.71 m/s | |AV VTI: 23.60 cm | |HAY Vmax: 3.41 cm2 | |HAY (VTI): 3.44 cm2 | |AVAI Vmax: 0.00 cm2/m2 | |AVAI (VTI): 0.00 cm2/m2 | |LVOT Env.Ti: 318.33 ms | |LVOT maxP.85 mmHg | |LVOT meanP.14 mmHg | |LVSI Dopp: 41.10 ml/m2 | |LVSV Dopp: 81.38 ml | |LVOT Vmax: 0.98 m/s | |LVOT Vmean: 0.69 m/s | |LVOT VTI: 22.17 cm | |MV A Carl: 1.11 m/s | |MV Dec [facility]: 3.15 m/s2 | |MV DecT: 292.73 ms | |MV E Carl: 0.92 m/s | |MV E/A Ratio: 0.82 | |E/E' Av.94 | |E' Av.03 m/s | |E/E' Lat: 19.14 | |E/E' Sept: 35.79 | |E' Lat: 0.04 m/s | |E' Sept: 0.02 m/s | |PV maxP.64 mmHg | |PV Vmax: 0.81 m/s | |RV S': 0.03 m/s | |TR maxP.27 mmHg | |TR Vmax: 2.13 m/s | |TV A Carl: 0.41 m/s | |TV Dec [facility]: 2.10 m/s2 | |TV Dec Time: 202.82 ms | |TV E Carl: 0.42 m/s | |TV E/A Ratio: 1.01 | | | |Greenhouse Manager: RK | |Authenticated by: Nasir Lim MD, FACC, FACP, [facility] | |Report Date/Time: -- [id number]:23 | | | |IMPRESSION: | |1. Overall left ventricular systolic function is normal with, an EF between 60 - 65 %. | |2. Moderate asymmetric septal hypertrophy with septal thickness 16 - 19 mm. | |3. The diastolic filling pattern indicates impaired relaxation consistent with mild dysfunc tion (Grade I). | |4. There is mild aortic regurgitation. | |5. Sdzh-fg-dagsgnpx mitral regurgitation is present. | + + documented in this encounter Visit Diagnoses Not on filedocumented in this encounter"
--- OUTSIDE RECORDS SUMMARY | ~2020-05-18 | XMS | Encounter Summary ---
Demographics + + + | Address | [address] | | | [place] [address] | + + + | Home Phone | | + + + | Preferred Language | Unknown | + + + | Marital Status | | + + + | Pentecostalism Affiliation | [id number] | + + + | Race | White | + + + | Ethnic Group | Not or | + + + Author + + + | Author | [facility] | | | and [place] | + + + | Organization | [facility] | | | and [place] | + + + | Address | Unknown | + + + | Phone | Unavailable | + + + Support + + + + + | Name | Relationship | Address | Phone | + + + + + | Tera Mccarthy | ECON | [place], [place] | | | | | [address] | | + + + + + | Alicia Mccarthy | ECON | [address] | | | | | [place] [address] | | + + + + + Care Team Providers + +------+ + | Care National Investigative Producer Name | Role | Phone | + [...] + + | 10/12/ | Telephone | [facility] | Cornel Sibley | Other | | 2020 | | [facility] | MD [address] | | | | | [address] | [address] | | | | | [place], [place] | [place] [address] | | | | | [address] | [phone] | | | | | [phone] | | | +--------+ + + + [...] [address] | | | | | | [place] [address] | | | | | | [phone] | | | | | | | | +--------+---------+ + + + documented as of this encounter Visit Diagnoses Not on filedocumented in this encounter"
--- OUTSIDE RECORDS SUMMARY | ~2020-05-18 | XMS | Encounter Summary ---
Demographics + + + | Address | [address] | | | [place] [address] | + + + | Home Phone [...] + | Author | [facility] | | | and Danielana | [...] [place], [place] | | | | | [address] | | + + + + + | Alicia Mccarthy | ECON | [address] | | | | | [place] [address] | | + + + + + Care Team Providers + +------+ + | Care Hot Press Operator Name | Role | Phone | [...] + + | 06/19/ | Office | [facility] | Connie Alvarez | SVT | | 2019 | Visit | [facility]IOLOGY [place] | [address] | (supraventricular | | | | [address] | [address] | tachycardia) (HCC) | | | | [address] [place] | [place] [address] | (Primary Dx); | | | | [address] | [phone] | Coronary artery | | | | [phone] | | disease involving | | | | | | [place] coronary | | | | | | artery of [place] | | | | | | heart [...] | | | | | | vera ([facility]); Hospital | | | | | | [...] rupture | | | | | | ([facility]) | +--------+---------+ + + + [...] non fasting labs in one month at [facility] labs in [place] to done before you see me back [...] him since Dr. 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 He was also hospit alized at [facility] on May 16 at [facility] for right MCA stroke On that [...] hospitalized from May 16 until May 19 [facility] with acute CVA and consulted by [...] establish care establishing care with PCP in [place], Dr. Brittany nation, who he had also [...] leg V CU [place] Last echo: 05/17/2019 ([facility]): EF 75%. LV normal in [...] Mild TR. No pu lmonary hypertension. Mild ID. No pericardial effusion. IVC not well visualized. No mass , no clot VASCULAR PROCEDURES/ IMAGING Ct Angiogram Head Neck Acute Stroke:05/16/2019:[facility] w/ stroke: 1. The right [...] 3. No acute intracranial findings Brain MRI:05/17/2019: [facility] w/ stroke: Abnormal diffusion restriction [...] when compared to EKG done in 2013 ID interval has decrease d ) EK05/31/2018: Sinus rhythm with first-degree AV block, incomplete right bundle branch bloc k. Old septal infarct Rate 60 bpm, ID [...] in April 2019, in May 2018 EK05/30/2019:( [facility]) Sinus rhythm with first-degree block, incomplete right bundle branch block, old inferior infarct. Rate 76 bpm, ID 222 ms, QRS 106 ms, QTC 398 ms tracing person ally reviewed by me. EK06/01/2019: ( [facility]) SVT, incomplete right bundle branch [...] to be performed in 1 month at [facility] in [place], with copies to be sent to his PCP, Dr.Gwen Meehan. I will see him back in 6 weeks, and will also have him establish care with Dr. 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 Coronary artery disease involving [place] coronary artery of [place] heart without angina pectoris 3. Hx of [...] past surgical history. Problem list. Poly [facility] 06/20/2019 docume nted in this [...] [address] | | | | | | [place] [address] | | | | | | [phone] | | | | | | | [...] | | | | PDT | tachycardia) ([facility]) | results section. 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 ([facility]) | | | | | | Moderate mitral | | | | | | regurgitation by | | | | | | prior echocardiogram | | | | | | Risk factors for | | | | | | obstructive sleep | | | | | | apnea Polycythemia | | | | | | delta ([facility]) [facility] | | | | | | [...] | | | | | | MDRD IDVT traceable | | | | | | equation.Testing | | | | | | performed at [facility];[address] | | | | | | [facility] | | | | | | [facility];[place] [address] | | | | | | | | | | + + + + + + + + | Specimen | + + | Blood | + + + + + + + | Performing | Address | City/State/Zipcode | Phone Number | | Organization | | | | + + + + + | REFERENCE LAB | [address] | [place] | [phone] | | [facility] | [address] | [address] | | | LABORATORY | | | | + + + + + | REFERENCE LAB | [address] | [place] | | | [facility] | [address] | [address] | | | LABORATORY | | | | + + + + + Digoxin Level (07/09/2019 12:16 PM PDT) + + + + + + | Component | Value | Ref Range | Performed | Pathologist | | | | | At | Signature | + + + + + + | Date of | 528507 | | REFERENCE | | | Last [...] | | | level | performed at [facility];[address] | ng/mL | LAB | | | | [place] | | [facility] | | | | [address];[place] [address] | | LABORATORY | | + + + + + + + + | Specimen | + + | Blood | + + + + + + + | Performing | Address | City/State/Zipcode | Phone Number | | Organization | | | | + + + + + | REFERENCE LAB | [address] [place] [address] | [place], [place] | [phone] | | [facility] | [address] | [address] | | | LABORATORY | | | | + + + + + | REFERENCE LAB | [address] [place] [address] | [place], [place] | | | [facility] | [address] | [address] | | | LABORATORY | | | [...] | | | | | by [employer] [place] Read Only, | | | | | | [employer] (240), | | | | | | make up editor Tate Lozano | | | | | | (334) on 06/19/2019 | | | | | [...] + + | Coronary artery disease involving [place] coronary artery of [place] heart without | | angina pectoris | [...]
--- OUTSIDE RECORDS SUMMARY | ~2020-05-18 | XMS | Clinical Summary ---
Demographics + + + | Address | [address] | | | [place] [address] | + + + | Home Phone [...] [facility] Amin | | | and Danielana [...] [place], [place] | | | | | [address] | | + + + + + | Alicia Mccarthy | ECON | [address] | | | | | [place] [address] | | + + + + + Care Team Providers + +------+ + | Care Construction Consultant Name | Role | Phone | [...] + + + + | Overview: 10/11/2019 ([facility]/Dr. Sibley): Comprehensive EP | | study coronary [...] automatically from request for surgery | | [id number] | + + + + + | [...] + | Coronary artery disease involving [place] coronary artery of | 03/16/2013 | | [place] heart | | + + + | [...] | | | | | graft of [place] | | | | | | heart without angina | | | | | | pectoris (Primary | | | | | | Dx); Coronary artery | | | | | | disease involving | | | | | | [place] coronary | | | | | | artery of [place] | | | | | | heart [...] | | | | | | ([facility]); History of | | | | | | CEA (carotid | | | | | | endarterectomy); | | | | | | Bilateral carotid | | | | | | artery disease, | | | | | | unspecified type | | | | | | ([facility]); Bilateral | | | | | | [...] | | | | | tachycardia ([facility]); | | | | | | First [...] | | | | | vera ([facility]); | | | | | | 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; | | | | | | Mild aortic stenosis | | | | | | by prior | | | | | | echocardiogram; | | | | | | Ascending aorta | | | | | | dilatation ([facility]); | | | | | | Hypertension, | | | | | | unspecified type | +--------+ + + + + | 05/09/ | Telephone | Cardiology | Socorro Toney | Other (Pt wanted to | | 2020 | | | D, Physical Geographer | discuss medications | | | | [...] | | | | | graft of [place] | | | | | | heart [...] | | | | | [place] [address] | | | | | | [phone] | | | | | | | [...] | | | | | graft of [place] | | | | | | heart without angina | | | | | | pectoris Coronary | | | | | | artery disease | | | | | | involving [place] | | | | | | coronary artery of | | | | | | [place] heart without | | | | | [...] + +--------+ | MEDICARE | MEDICA | [id number] | 02/25/20 | [phone] | | Medica | | | RE | | 05-Pre | 5 | | re | | | PART A | | sent | | | | | | AND B | | | | | | + +--------+ +--------+ + +--------+ | MODA | MODA | [id number] | 11/25/19 | [phone] | [address] | Indemn | | | HEALTH | | 08-Pre | 9 | [phone] | [address]y | | | MDCR | | sent | | [place], | | | | [place] | | | | [place] [address] | | + +--------+ +--------+ + +--------+ | MEDICARE | MEDICA | [id number] | 02/25/20 | [phone] | | Medica | | | RE | | 05-Pre | 5 | | re | | | PART A | | sent | | | | | | AND B | | | | | | + +--------+ +--------+ + +--------+ | MODA | MODA | [id number] | 09/26/19 | [phone] | [address] | Indemn | | | HEALTH | | 19-Pre | 9 | [phone] | ity | | | MDCR | | sent | | [place], | | | | [place] | | | | [place] [address] | | + +--------+ +--------+ + +--------+ + +--------+ +--------+ + + | Guarantor Name | Accoun | Relation to | Date | Phone | Billing Address | | | t Type | Patient | of | | | | | | | | | | + +--------+ +--------+ + + | Simon Mccarthy | Person | Self [birth year] | [address] | | | al/Fam | | 1940 | [phone] | [place] [address] | | | lee | | | 8 (Home) | | + +--------+ +--------+ + + | Simon Mccarthy | Person | Self | [birth year] | [address] | | | al/Fam | | 1940 | [phone] | [place] [address] | | | lee | | | 8 (Home) | | + +--------+ +--------+ + + Advance Directives + + + + + | Type | Date Recorded | Patient | Explanation | | | | Flower Cutter | | + + + + + | Power of | | | | | Manager Of Security | | | | + + + + + | Power of | 01/22/2020 5:22 | | | | Manager Of Security | PM | | | + + [...]
--- OUTSIDE RECORDS SUMMARY | ~2020-05-18 | XMS | Encounter Summary ---
Demographics + + + | Address | [address] | | | [place] [address] | + + + | Home Phone | | + + + | Preferred Language | Unknown | + + + | Marital Status | | + + + | Zoroastrian Affiliation | [id number] | + + + | Race | White | + + + | Ethnic Group | Not or | + + + Author + + + | Author | [facility] | | | and [place] | + + + | Organization | [facility] | | | and [place] | + + + | Address | Unknown | + + + | Phone | Unavailable | + + + Support + + + + + | Name | Relationship | Address | Phone | + + + + + | Tera Mccarthy | ECON | [place], [place] | | | | | [address] | | + + + + + | Alicia Mccarthy | ECON | [address] | | | | | [place] [address] | | + + + + + Care Team Providers + +------+ + | Care Fruit Grower Name | Role | Phone | + +------+ + | Brittany Meehan MD | PCP | | + +------+ + Reason for Visit + + + | Reason | Comments | + + + | Follow-up, Office | Dizzy and lightheaded | | Visit | | + + + Encounter Details +--------+---------+ + + + | Date | Type | Department | Care Team | Description | +--------+---------+ + + + | 07/31/ | Office | [facility] | Connie Alvarez | SVT | | 2019 | Visit | [facility] [place] | [address] | (supraventricular | | | | [address] | [address] | tachycardia) ([facility]) | | | | [address] [place] | [place] [address] | (Primary Dx); | | | | [address] | [phone] | Tachyarrhythmia; | | | | [phone] | | Coronary artery | | | | | | disease involving | | | | | | [place] coronary | | | | | | artery of [place] | | | | | | heart without angina | | | | | | pectoris; Hx of | | | | | | CABG; History of CVA | | | | | | in adulthood; | | | | | | Facial droop; | | | | | | Dyslipidemia; | | | | | | [...] | | | | | | disease ([facility]); | | | | | | Asymmetric [...] | | | | | | vera (HCC); | | | | | | Abdominal aortic | | | | | | aneurysm (AAA) | | | | | | without rupture | | | | | | ([facility]); Bilateral | | | | | | carotid artery | | | | | | disease, unspecified | | | | | | type (HCC); | | | | | | Dizziness | +--------+---------+ + + + Social History [...] + + + | Blood Pressure | 120/64 | 07/31/2019 2:57 PM | | | | | PST | | + + + + + | Pulse | 71 | 07/31/2019 2:57 PM | | | | | PST | | + + + + + | Temperature | - | - | | + + + + + | Respiratory Rate | - | - | | + + + + + | Oxygen Saturation | 96% | 07/31/2019 2:57 PM | | | | | PST | | + + + + + | Inhaled Oxygen | - | - | | | Concentration | | | | + + + + + | Weight | 77.1 kg (170 lb) | 07/31/2019 2:57 PM | | | | | PST | | + + + + + | Height | 175.3 cm (5' 9") | 07/31/2019 2:57 PM | | | | | PST | | + + + + + | Body Mass Index | 25.1 | 07/31/2019 2:57 PM | | | | | PST [...] of this encounter Patient Instructions Patient Instructions Kim Mariah, FNP - 07/31/2019 3:00 PM PSTI made these castillo es to medications : hold Zetia for 1 week starting tomorrow, Aug 01, and see if makes any d ifference to your dizziness. Call me Back Aug 09, and let me know how you did. If stopping Zetia stops your dizziness , then I will change you to a different medication called fenofibrate You can also check with Dr. Meehan to see if sinuses contributing to lightheadedness and diz ziness Do not change any medications until you see me back on August 15 when I follow up with you on your monitor . documented in this encounter Progress Notes Kim Mariah, FNP - 07/31/2019 3:00 PM PSTFormatting of this note might be differe nt from the original. Date of visit: 07/31/2019 Primary Care Physician: Brittany Meehan MD CHIEF COMPLAINT: Chief Complaint Patient presents with Follow-up, Office Visit Dizzy and lightheaded HISTORY OF PRESENT ILLNESS: Mr. Simon Mccarthy [facility], is a 79-year-old man who is here today to follow up dizziness . He is a patient of Dr. Lim and last seen by him in July 2016, and has not followed u p with him since Dr. Lim stopped coming to [place], as difficult for him He has a [...] down after 4 phlebotomies, with last CBC 05/[address] Muñoz retired in February 2018 documented ongoing problems with dyspnea with intermittent respiratory infections and exacerbations, and that polycythemia vera had been controlled wi th 4 phlebotomies. He also documented he had also recommended he be evaluated for sleep face hardener ea, but the patient had declined, as he did not think he could wear CPAP I had seen him last 06/20/2019 and I ordered him a 2-week event monitor, which unfortunate ly was not set up until July 10, told him to continue to take metoprolol XL 50 mg in the morning, and to take losartan 50 mg at night for poorly controlled hypertension, to continue to take Zetia 10 mg at night, to continue to take Plavix in the morning, and added digoxin 125 mcg to his medications to help better control his heart rate. He had called into the clinic when I was on vacation on June 26 complaining of dizziness, and was told to decrease his losartan back to 25 mg, however his dizziness continued and wh en I called him back on June 28, his blood pressure systolic is in the 160s, and had been in the 140s on losartan 50 mg, so I told him to go back to 50 mg nightly. His current and previous testing and procedures are detailed below. He was previously hospitalized from May 16 until May 19 [facility] with acute CVA and consulted by neurologist [...] Zetia and symptoms were worse with exertion a nd improved with lying down or sitting. He was readmitted He was discharged again on June 01 , and diagnosed with SVT, and cardiology was cons ulted during the second stay. He was started on metoprolol XL, which he had been on previou sly. He was also noted to incidentally have an abdominal aortic aneurysm, as well as a 6 mm asym ptomatic nonobstructive calculus to his right kidney discovered on renal ultrasound, and acu te kidney injury resolved with IV hydration, and urology also consulted. He was discharged on Plavix 75 mg, Zetia 10 mg, losartan 25 mg daily, and metoprolol XL 50 mg daily. Since I saw him last, he followed up with neurologist Dr. Reese 06/25/2019, and note rev iewed which documented continuing Plavix and Zetia, to avoid omeprazole with Plavix and he a greed with event monitor, and suggested 4 weeks, to keep pressure <140/90 but avoid hypotens ion Today he reports he continues to be dizzy on a daily basis, and reports he is dizzy and con trolled. He brought in a log from home of his heart rate and blood pressure shows predomina ntly his heart rate is in the 60-85 bpm range, with only occasional heart rates >100 bpm, an d his systolic blood pressure is predominantly in the 125-145 mmHg range, with a few episode s greater than 150. ST has business to contact and did not want to feel dizzy or lightheaded so he did not take his losartan, and felt fine the next day, with no or little dizziness, but then fell asleep while on the day and woke up and was very dizzy, and his systolic blood pressure was in the 200s. His son came over,to be with Him,and they called the post acute care nurse front desk officer and was told to immediately resume his losartan, and to follow-up with me, which is why he is here for an earlier appointment. He actually looks much improved today with better color, and better concentration and focus , and seems to have improved activity tolerance. He denies any chest pain, central or peripheral edema, but does note some lightheadednes s when his heart rate is fast, but denies any syncope. He continues to recover from his str robin, and has less noticeable left-sided facial droop, and speech has remained clear, but his memory has been worse lately. He denies any new signs or symptoms of stroke or TIA. He reports increased sinus problems lately, and wonders if this is contributing to his dizz iness as well. He brought all of his medications to [...] apnea evaluation 07/2017, patient declined Cardiovascular: c/o infrequent fast heart rates. And palpitations.. Denies chest pain,an d leg swelling. Denies history of rheumatic fever. Denies claudication . Gastrointestinal: GERD, on ranitidine. Denies nausea, vomiting, abdominal pain and blood in stool. Genitourinary: Denies hematuria. history of BPH, new [...] tablet by mouth Daily. 90 tablet 3 digoxin (LANOXIN) 125 mcg tablet Take 1 tablet by mouth Daily. 30 tablet 11 ezetimibe (ZETIA) 10 mg tablet Take 1 tablet by mouth nightly. 90 tablet 3 fluticasone (FLONASE) 50 mcg/nasal [...] 150 mg by mouth Daily. No facility-administered medications prior to visit. PHYSICAL EXAM: Wt Readings from Last 3 Encounters: 07/31/19 77.1 kg (170 lb) 06/25/19 77.6 kg (171 lb) 06/19/19 77.6 kg (171 lb) Temp Readings from Last 3 Encounters: 06/01/19 36.4 C (97.6 F) (Oral) 05/30/19 36.6 C (97.9 F) (Oral) 05/28/19 36.7 C (98 F) (Temporal) BP Readings from Last 3 Encounters: 07/31/19 120/64 06/25/19 144/71 06/19/19 132/76 Pulse Readings from Last 3 Encounters: 07/31/19 71 06/25/19 56 06/19/19 70 GENERAL: Well developed, well nourished, in no [...] 05/30/2019 Lab Results Component Value Date NA 142 07/09/2019 K 5.2 (H) 07/09/2019 CL 107 07/09/2019 CO2 27 07/09/2019 ANIONGAP 13 07/09/2019 BUN 19 07/09/2019 EGFR 53 (L) 07/09/2019 Lab Results Component Value Date CHOL 104 [...] leg V CU ECHO Last echo: 05/17/2019 ([facility]): EF 75%. LV normal in size [...] Mild TR. No pu lmonary hypertension. Mild AR. No pericardial effusion. IVC not well visualized. No mass , no clot VASCULAR PROCEDURES/ IMAGING Ct Angiogram Head Neck Acute Stroke:05/16/2019:[facility] w/ stroke: 1. The right vertebral [...] 3. No acute intracranial findings Brain MRI:05/17/2019: [facility] w/ stroke: Abnormal diffusion restriction is seen in the right centrum semiovale compatible with an area of acute infarction. CEA: 02/2010: Right and left carotid artery endarterectomy Last carotid ultrasound: 04/26/2019:( [facility]) Atheromatous changes in the carotid arteries [...] elevation to anterior leads. Rate 67 bpm, AR 226 ms, QRS 108 ms, QTC 388 ms EK: Normal sinus rhythm, incomplete bundle branch block, prior septal infarct . First-degree A-V block. Rate 80 bpm, AR 206 ms, QRS 106 ms, QTC 420 ms (personally revie wed by me in the office today and when compared to EKG done in 2013 AR interval has decrease d ) EK05/31/2018: Sinus rhythm with first-degree AV block, incomplete right bundle branch bloc k. Old septal infarct Rate 60 bpm, AR 230 ms, QRS 108 ms, QTC 390 ms him a tracing persona lly reviewed by me, similar morphology to July 2017 EKG, except for increased first-degr ee block EK05/16/2019: Sinus rhythm with first-degree AV block, incomplete right bundle branch blo ck, LVH, old septal infarct w/ low voltage QRS leads II aVF. Rate 61 bpm, AR 226 ms, QRS 11 0 ms, QTC 410 ms, tracing personally reviewed by me EK05/23/2019: Sinus rhythm with first-degree AV block, stable incomplete right bundle bra nch block, LVH, old septal infarct. Rate 70 bpm, AR 230 ms, QRS 140 ms, QTC 410 ms, tracing personally reviewed by me, and similar morphology to previous EKG performed in April 2019, in May 2018 EK05/30/2019:( [facility]) Sinus rhythm with first-degree block, incomplete right bundle branch block, old inferior infarct. Rate 76 bpm, AR 222 ms, QRS 106 ms, QTC 398 ms tracing person ally reviewed by me. EK06/01/2019: ( [facility]) SVT, incomplete right bundle branch block. Rate 124 bpm, QRS 108 ms , QTC 451 ms, tracing personally reviewed by me EK06/19/2019: ( metoprolol XL 50 mg) sinus rhythm with first-degree AV block and septal i nfarct, incomplete right bundle branch block. Rate 64 bpm, AR 224 ms, QRS 108 ms, QTC 402 m s, tracing personally reviewed by me EK07/31/2019: (metoprolol XL 50 mg /Digoxin 125 mcg) Sinus rhythm with first-degree AV bl ock, incomplete right bundle branch block, previous anterior [place], rate 69 bpm, AR 240 ms, QRS 102 ms, QTC 390 ms, tracing personally reviewed by me, and similar morphology to previous E KG performed on June 19, 2019 LABS: Labs: 03/14: Lipids: Cholesterol 195, triglycerides [...] 1.3, GFR 53 digoxin 1.2 ASSESSMENT & PLAN: He was here today for an earlier visit to follow-up dizziness and lightheadedness, as wel l as heart rate and blood pressure control with my previous medication changes. He has problems as detailed below. His EKG performed in the clinic today shows stable sinus rhythm at 69 bpm with first-degre e AV block.. As discussed in HPI, his heart rate and blood pressure per his home heart rate and blood pr essure log are now well controlled and generally, except for when he decided to stop his [place] when he had a systolic blood pressure in the 180-200 mmHg range. His BMP performed on July 09 was normal except for slight decline in his GFR to 53, and his digoxin level was therapeutic. I had a long discussion with him today that my primary goal in the last 2 months is to control his heart rate and blood pressure to allow him to recover from his stroke, and also to prevent any further ischemic events both in his heart, and in his brain. I discussed with him that his dizziness may be treated as he had increased dizziness wit h higher blood pressure, and has same symptoms today though heart rate and blood pressure ar e well controlled. I have strongly advised him not to stop either his metoprolol or losartan, or digoxin, a s they are all working well to keep his heart rate and blood pressure stable. I have suggested since Zetia also causes dizziness that we could try a 1 week trial of hold ing Zetia to see if it improved his symptoms, and he is in agreement with this plan. He just turned in his 2-week event monitor, and I will see him back on August 15 to aydin w-up on the results. In the meantime besides holding Zetia, I made no changes to his cardiac medications , and fernando cifuentes should continue to take his metoprolol XL 50 mg in the morning, to take his losartan 50 m g, at night, digoxin 125 mcg to take in the morning to help better control his heart rate, without increasing his hypotension or dizziness. If Zetia is causing his dizziness, I will change him to fenofibrate for his statin intolera nce. He will establish care with Dr. Yu on 09/12/2019,to be his primary post acute care nurse, as he would prefer to see a post acute care nurse who comes to [place] He needs to have a lithotripsy for his right kidney stone, which is 6 mm, though current ly not obstructing, but I would like to wait on this procedure until I have his heart rate a nd blood pressure better controlled. He will also need to be off Plavix for this procedure, and I would like to consult with fernando is neurologist, and vascular surgeon prior to stopping it. He will follow up with his neurologist Dr. Reese on 11/19/2018. 1. SVT (supraventricular tachycardia) (HCC) 2. Tachyarrhythmia 3. Coronary artery disease involving [place] coronary artery of [place] heart without angina pectoris 4. Hx of CABG 5. History of CVA in adulthood 6. Facial droop 7. Dyslipidemia 8. Bilateral carotid bruits 9. Mixed hyperlipidemia 10. Hypertension goal BP (blood pressure) < 140/80 11. History of CEA (carotid endarterectomy) 12. Peripheral arterial disease (HCC) 13. Asymmetric septal hypertrophy (HCC) 14. Moderate mitral regurgitation by prior echocardiogram 15. Risk factors for obstructive sleep apnea 16. Polycythemia vera (HCC) 17. Abdominal aortic aneurysm (AAA) without rupture (HCC) 18. Bilateral carotid artery disease, unspecified type (HCC) 19. Dizziness Orders Placed This Encounter Procedures ECG 12 [...] past surgical history. Problem list. Poly REESE [facility] Cardiology 07/31/2019 Radha ford in this encounter Plan of Treatment +--------+---------+ + + + | Date | Type | Specialty | Care Team | Description | +--------+---------+ + + + | 06/25/ | Office | Cardiology | Paulinemya Connie | | | 2019 | Visit | | [address] | | | | | | [address] | | | | | | [place] [address] | | | | | | [phone] | | | | | | | | +--------+---------+ + + + documented as of this encounter Procedures + +--------+ + + + | Procedure Name | Priori | Date/Time | Associated Diagnosis | Comments | | | ty | | | | + +--------+ + + + | ECG 12 LEAD | Routin | 07/31/2019 | SVT | Results for this | | | e | 3:07 PM | (supraventricular | procedure are in the | | | | PST | tachycardia) ([facility]) | results section. | | | | | Tachyarrhythmia | | | | | | Coronary artery | | | | | | disease involving | | | | | | [place] coronary | | | | | | artery of [place] | | | | | | heart without angina | | | | | | pectoris Hx of | | | | | | CABG History of CVA | | | | | | in adulthood | | | | | | Facial droop | | | | | | Dyslipidemia | | | | | | [...] | | | | disease (HCC) | | | | | | Asymmetric septal | | | | | | hypertrophy (HCC) | | | | | | Moderate mitral | | | | | | regurgitation by | | | | | | prior echocardiogram | | | | | | Risk factors for | | | | | | obstructive sleep | | | | | | apnea Polycythemia | | | | | | vera (HCC) | | | | | | Abdominal aortic | | | | | | aneurysm (AAA) | | | | | | without rupture | | | | | | (HCC) Bilateral | | | | | | carotid artery | | | | | | disease, unspecified | | | | | | type (HCC) | | | | | | Dizziness | | + +--------+ + + + documented in this encounter Results ECG 12 lead (07/31/2019 3:07 PM PST) + + + + + [...] + + + + | P-R | 240 | ms | [facility] | | | INTERVAL | | | | | + + + + + + | QRS | 102 | ms | [facility] | | | DURATION | | | | | + + + + + + | Q-T | 364 | ms | [facility] | | | INTERVAL | | | | | + + + + + + | Q-T | 390 | ms | [facility] | | | INTERVAL | | | | | | (CORRECTED) | | | | | + + + + + + | P WAVE AXIS | 34 | degrees | [facility] | | + + + + + + | QRS AXIS | 21 | degrees | [facility] | | [...] | | | | | by [employer] [place] [employer], | | | | | | [employer] ([id number]), | | | | | | editor 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
--- OUTSIDE RECORDS SUMMARY | ~2020-05-18 | XMS | Encounter Summary ---
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 Name | Role | Phone | + +------+ + PCP | Unavailable | + +------+ + Encounter Details +--------+ + + + + | Date | Type | Department | Care Team | Description | +--------+ + + + + | 06/26/ | Hospital | [facility] | Nydia Norris MD | Nonspecific Abnormal | | 2009 | Encounter | [facility] | [address] | Unspecified | | | | CLINICAL DECISION | [address] | Cardiovascular | | | | [address] | [place], [place] | Function Study | | | | [place], [place] | [address] | | | | | [address] | [phone] | | | | | [phone] | | | +--------+ + + + [...] | 06/25/ | Office | Cardiology | EvanjuliaConnie | | | 2019 | Visit | | [address] | | | | | | [address] | | | | | | [place] [address] | | | | | | [phone] | | | | | | | | +--------+---------+ + + + documented as of this encounter Procedures + +--------+ + + + | Procedure Name | Priori | Date/Time | Associated Diagnosis | Comments | | | ty | | | | + +--------+ + + + | US VEINS EXTREMIITY | Routin | 06/26/2009 | | Results for this | | BILATERAL | e | 7:35 PM | | procedure are in the | | | | PDT | | results section. | + +--------+ + + + | XR CHEST 2 VIEWS | Routin | 06/26/2009 | | Results for this | | | e | 5:20 PM | | procedure are in the | | | | PDT | | results section. | + +--------+ + + + | VAS CAROTID DUPLEX | Routin | 06/26/2009 | | Results for this | | BILATERAL | e | 5:06 PM | | procedure are in the | | | | PDT | | results section. | + +--------+ + + + | CV CARDIAC PROCEDURE | Routin | 06/26/2009 | | Results for this | | | e | 1:45 PM | | procedure are in the | | | | PDT | | results section. | + +--------+ + + + documented in this encounter Results US Veins Extremiity Bilateral (06/26/2009 7:35 PM PDT) + + | Specimen | + + | | + + + + + | Narrative | Performed At | + + + | [id number] | | | Page 1 RADIOLOGY | | | CDU 410[address]/ | | | OPS [facility] | | | CENTER NAME: [place], [place] [address] | | | | | | | | | DATE OF : 1940 ORDER NUMBER: | | | [id number] EXAM DATE/TIME: 06/26/2009 05:50 P ORDERING PHYSICIAN: | | | KELLEE CARLIN ORDER DETAIL: [id number] / / HUS EXAM DESCRIPTION: | | | US LOWER EXT VENOUS MATHEW | | | | | | ULTRASOUND LOWER EXTREMITY VENOUS BILATERAL 06/26/2009 HISTORY | | | Preoperative evaluation for open heart surgery. TECHNIQUE | | | Sonographic evaluation of the bilateral lower extremities' greater | | | saphenous veins was performed for vein mapping. FINDINGS All vein | | | segments of the bilateral greater saphenous veins are visualized and | | | completely compressible. RIGHT GREATER SAPHENOUS VEIN: | | | LOCATION: DIAMETER: | | | DEPTH: Saphenofemoral junction 0.4 cm | | | 1.1 cm High greater saphenous vein 0.3 cm | | | 0.6 cm Mid | | | 0.2 cm 0.5 cm Low | | | 0.3 cm | | | 0.4 cm Knee 0.3 | | | cm 0.4 cm LEFT GREATER | | | SAPHENOUS VEIN: LOCATION: | | | DIAMETER: DEPTH: Saphenofemoral junction | | | 0.3 cm 1.0 cm High greater | | | saphenous vein 0.2 cm 0.8 cm | | | Mid 0.2 cm | | | 0.5 cm Low | | | 0.2 cm 0.5 cm Knee | | | 0.2 cm | | | 0.5 cm IMPRESSION Patent bilateral greater saphenous veins with | | | mapping as described above. Read by RICHARD PRINGLE, | | | 06/26/2009 08:18 P Electronically Signed by RICHARD PRINGLE DO | | | 06/29/2009 06:53 P P | | | 05:57 P [facility]/cuauhtemoc/[id number]/ cc: MD KELLEE CASSIDY | | | MD RICHARD CARLIN DO NORMAN SITZ, MD | | + + + + + | Procedure Note | + + | Alfred Landry Conversion - 05/21/2019 2:58 AM PDT | | [id number] Page 1 | | RADIOLOGY CDU 72632/ | | OPS | | [facility] NAME: SIMON MCCARTHY | | [place] [address] | | | | DATE OF : 1940 | | | | ORDER NUMBER: [id number] | | EXAM DATE/TIME: 06/26/2009 05:50 P | | ORDERING PHYSICIAN: KELLEE CARLIN | | ORDER DETAIL: [id number] / / HUS | | EXAM DESCRIPTION: US LOWER EXT VENOUS MATHEW | | | | ULTRASOUND LOWER EXTREMITY VENOUS BILATERAL 06/26/2009 | | | | HISTORY | | Preoperative evaluation for open heart surgery. | | | | TECHNIQUE | | Sonographic evaluation of the bilateral lower extremities' greater | | saphenous veins was performed for vein mapping. | | | | FINDINGS | | All vein segments of the bilateral greater saphenous veins are | | visualized and completely compressible. | | | | RIGHT GREATER SAPHENOUS VEIN: | | | | LOCATION: DIAMETER: DEPTH: | | Saphenofemoral junction 0.4 cm 1.1 cm | | High greater saphenous vein 0.3 cm 0.6 cm | | Mid 0.2 cm 0.5 cm | | Low 0.3 cm 0.4 cm | | Knee 0.3 cm 0.4 cm | | | | | | LEFT GREATER SAPHENOUS VEIN: | | | | LOCATION: DIAMETER: DEPTH: | | Saphenofemoral junction 0.3 cm 1.0 cm | | High greater saphenous vein 0.2 cm 0.8 cm | | Mid 0.2 cm 0.5 cm | | Low 0.2 cm 0.5 cm | | Knee 0.2 cm 0.5 cm | | | | IMPRESSION | | Patent bilateral greater saphenous veins with mapping as described | | above. | | | | | | | | | | | | Read by | | RICHARD PRINGLE DO 06/26/2009 08:18 P | | Electronically Signed by | | RICHARD PRINGLE DO 06/29/2009 06:53 P | | | | P | | P | | [facility]//[id number]/ | | cc: NYDIA NORRIS MD | | KELLEE CARLIN MD | | RICHARD PRINGLE DO | | REECE ELIZONDO MD | + + XR Chest 2 Vws (06/26/2009 5:20 PM PDT) + + | Specimen | + + | | + + + + + | Narrative | Performed At | + + + | [id number] | | | Page 1 RADIOLOGY | | | [facility] [address]/ | | | OPS [facility] | | | CENTER NAME: [place] [address] | | | | | | | | | DATE OF : 1940 ORDER NUMBER: | | | [id number] EXAM DATE/TIME: 06/26/2009 04:12 P ORDERING PHYSICIAN: | | | KELLEE CARLIN ORDER DETAIL: 7000 / / HDI EXAM DESCRIPTION: | | | XR CHEST 2 VIEW | | | | | | TWO-VIEW CHEST 06/26/2009 HISTORY Coronary artery bypass surgery. | | | FINDINGS Cardiac size and contour is normal. Lungs are well | | | expanded and clear. Pleural spaces are unremarkable. No obvious | | | hilar enlargement. Osseous structures are unremarkable for age. | | | IMPRESSION No acute pulmonary disease. Read by FABIOLA Zaidi | | | MD JUAN 06/26/2009 06:01 P Electronically Signed by FABIOLA Zaidi | | | MD JUAN 06/27/2009 07:05 P P DT: | | | 06/27/2009 05:28 P DTB/miles/[id number]/ cc: NYDIA NORRIS MD | | | MD KELLEE PINEDA MD NORMAN | | | MD MIKHAIL | | + + + + + | Procedure Note | + + | Alfred Landry Conversion - 05/21/2019 2:58 AM PDT | | [id number] Page 1 | | RADIOLOGY CDU 12108/ | | OPS | | [facility] NAME: [address] SIMON Geetha | | [place] [address] | | | | DATE OF : 1940 | | | | ORDER NUMBER: [id number] | | EXAM DATE/TIME: 06/26/2009 04:12 P | | ORDERING PHYSICIAN: KELLEE CARLIN | | ORDER DETAIL: 7000 / / HDI | | EXAM DESCRIPTION: XR CHEST 2 VIEW | | | | TWO-VIEW CHEST 06/26/2009 | | | | HISTORY | | Coronary artery bypass surgery. | | | | FINDINGS | | Cardiac size and contour is normal. Lungs are well expanded and clear. | | Pleural spaces are unremarkable. No obvious hilar enlargement. Osseous | | structures are unremarkable for age. | | | | IMPRESSION | | No acute pulmonary disease. | | | | | | Read by | | FABIOLA MARTINEZ MD 06/26/2009 06:01 P | | Electronically Signed by | | FABIOLA MARTINEZ MD 06/27/2009 07:05 P | | | | P | | P | | DTB/[facility]/[id number]/ | | cc: NYDIA NORRIS MD | | FABIOLA MARTINEZ MD | | KELLEE CARLIN MD | | REECE ELIZONDO MD | + + VAS Carotid Duplex Bilateral (06/26/2009 5:06 PM PDT) + + | Specimen | + + | | + + + + + | Narrative | Performed At | + + + | [id number] | | | Page 1 RADIOLOGY | | | CDU 57063/ | | | OPS [facility] | | | [place] [address] | | | | | | | | | DATE OF : 1940 ORDER NUMBER: | | | [id number] EXAM DATE/TIME: 06/26/2009 03:46 P ORDERING PHYSICIAN: | | | KELLEE CARLIN ORDER DETAIL: [id number] / / HUS EXAM DESCRIPTION: | | | US CAROTID DOPPLER | | | | | | CAROTID DOPPLER ULTRASOUND 06/26/2009 HISTORY Preoperative for | | | open heart surgery. TECHNIQUE Duplex color flow Doppler | | | evaluation of bilateral carotid and vertebral arterial systems | | | performed. FINDINGS There is moderate heterogeneous plaque seen | | | within the bilateral distal common carotid arteries extending within | | | the carotid bulbs and internal carotid arteries bilaterally. | | | PROX DISTAL PROX MID DISTAL CCA | | | CCA ICA ICA ICA ECA | | | VERTEBRAL R CAROLYN 0.75/ 0.75/ 1.35/ 2.03/ 1.74/ | | | 0.97/ 0.29/1.0 0.17 0.24 0.52 0.81 | | | 0.58 0.15 | | | Antegrade Flow Grade 1 | | | 1 3 3 3 1 | | | 1 L CAROLYN 0.86/ 0.94/ 3.49/ 0.47/ 0.13/ | | | 1.50/ 0.67/0.23 0.20 0.25 1.21 0.12 | | | 0.31 0.33 | | | Antegrade Flow Grade 1 | | | 1 4 1 1 3 1 | | | Grade 1 2 3 4 | | | 5 6 Diameter < 50, mild < 50, mod | | | Stenosis % plaque plaque 50-69 70-95 95-99 | | | 100 Estimated Flow Reduction None None | | | Mild Moderate Severe Occluded Note: The % categories were | | | changed on 10/03/03. This may result in a category change compared to | | | a prior exam even if the actual degree of stenosis has not changed. | | | IMPRESSION Heterogeneous plaquing seen within the bilateral distal | | | common carotid arteries and proximal internal carotid arteries, | | | greatest on the left side, with hemodynamically significant stenosis | | | of approximately 70% to 95%. There is also approximately 50% to 69% | | | stenosis seen within the right internal carotid artery, greatest in | | | its midportion. Read by RICHARD PRINGLE DO 06/26/2009 06:18 P | | | Electronically Signed by RICHARD PRINGLE DO 06/29/2009 06:53 P DD: | | | 06/26/2009 06:18 P P [facility]/monica/[id number]/ | | | cc: MD KELLEE CASSIDY MD CHET R | | | DO REECE PRINGLE MD | | + + + + + | Procedure Note | + + | Frantz, Rad Conversion - 05/21/2019 2:58 AM PDT | | [id number] Page 1 | | RADIOLOGY CDU 32545/ | | OPS | | [facility] NAME: SIMON MCCARTHY | | [place] [address] | | | | DATE OF : 1940 | | | | ORDER NUMBER: [id number] | | EXAM DATE/TIME: 06/26/2009 03:46 P | | ORDERING PHYSICIAN: KELLEE CARLIN | | ORDER DETAIL: 4600 / / HUS | | EXAM DESCRIPTION: US CAROTID DOPPLER | | | | CAROTID DOPPLER ULTRASOUND 06/26/2009 | | | | HISTORY | | Preoperative for open heart surgery. | | | | TECHNIQUE | | Duplex color flow Doppler evaluation of bilateral carotid and vertebral | | arterial systems performed. | | | | FINDINGS | | There is moderate heterogeneous plaque seen within the bilateral distal | | common carotid arteries extending within the carotid bulbs and internal | | carotid arteries bilaterally. | | | | PROX DISTAL PROX MID DISTAL | | CCA CCA ICA ICA ICA ECA VERTEBRAL | | R CAROLYN 0.75/ 0.75/ 1.35/ 2.03/ 1.74/ 0.97/ 0.29/1.0 | | 0.17 0.24 0.52 0.81 0.58 0.15 | | Antegrade Flow | | Grade 1 1 3 3 3 1 1 | | L CAROLYN 0.86/ 0.94/ 3.49/ 0.47/ 0.13/ 1.50/ 0.67/0.23 | | 0.20 0.25 1.21 0.12 0.31 0.33 | | Antegrade Flow | | Grade 1 1 4 1 1 3 1 | | | | Grade 1 2 3 4 5 6 | | Diameter < 50, mild < 50, mod | | Stenosis % plaque plaque 50-69 70-95 95-99 100 | | Estimated Flow | | Reduction None None Mild Moderate Severe Occluded | | | | Note: The % categories were changed on 10/03/03. This may result in a | | category change compared to a prior exam even if the actual degree of | | stenosis has not changed. | | | | IMPRESSION | | Heterogeneous plaquing seen within the bilateral distal common carotid | | arteries and proximal internal carotid arteries, greatest on the left | | side, with hemodynamically significant stenosis of approximately 70% to | | 95%. There is also approximately 50% to 69% stenosis seen within the | | right internal carotid artery, greatest in its midportion. | | | | | | Read by | | RICHARD PRINGLE DO 06/26/2009 06:18 P | | Electronically Signed by | | RICHARD PRINGLE DO 06/29/2009 06:53 P | | | | P | | P | | [facility]//[id number]/ | | cc: NYDIA NORRIS MD | | KELLEE CARLIN MD | | RICHARD PRINGLE DO | | REECE ELIZONDO MD | + + CV CARDIAC PROCEDURE (06/26/2009 1:45 PM PDT) + + | Specimen | + + | | + + + + + | Narrative | Performed At | + + + | [id number] | | | Page 1 CARDIOLOGY | | | [facility] [address]/ | | | OPS [facility] | | | CENTER NAME: [place] [address] | | | | | | | | | DATE OF : 1940 ORDER NUMBER: | | | [id number] EXAM DATE/TIME: 06/26/2009 12:30 P ORDERING PHYSICIAN: | | | NYDIA NORRIS ORDER DETAIL: [id number] / / HCL EXAM DESCRIPTION: CCL | | | HEART CATH LT RETRO PERC | | | | | | PROCEDURES 1. Left heart catheterization. 2. Left ventriculogram. | | | 3. Aortogram. 4. Left and right selective coronary angiography. 5. | | | Angiography of the right common femoral artery for possible closure | | | device deployment. 6. Angio-Seal closure device deployment. | | | INDICATIONS This is a 69-year-old pleasant male who | | | presented to my office for evaluation secondary to symptoms of chest | | | pressure and tightness as well as shortness of breath. He underwent a | | | stress test that came back abnormal, showing evidence of ischemia | | | and transient ischemic dilatation of the left ventricle. The patient | | | was advised to undergo a left heart catheterization and coronary | | | angiography to rule out significant coronary artery disease. The | | | patient was informed about the risks, benefits, and alternatives of | | | the procedure and an informed consent was obtained. DESCRIPTION | | | OF PROCEDURE The patient was brought to the cardiac catheterization | | | laboratory. He was prepped and sedated in the usual manner. The right | | | groin was prepped in the usual sterile fashion. The right groin was | | | anesthetized with 10 mL of 1% lidocaine solution. Then a 6-[place]an | | | arterial sheath was inserted into the right common femoral artery | | | using a modified Seldinger technique. The 6-[place]an pigtail catheter | | | was advanced over the guidewire under fluoroscopy into the proximal | | | aorta, and the opening aortic pressure was obtained. The pigtail | | | catheter was advanced under fluoroscopy to the LV cavity and the | | | pressures in the LV cavity were measured. Dye injected into the LV, | | | and left ventriculogram in the MCKINNEY projection was obtained. The | | | pigtail catheter was then pulled back across the aortic valve and the | | | pressure gradient across the valve was recorded. The pigtail | | | catheter was positioned under fluoroscopy in the proximal ascending | | | aorta, dye injected and aortogram in the KARYN projection was obtained, | | | and the pigtail catheter was exchanged over the guidewire by a | | | 6-[place]an JL4 catheter that was advanced over the guidewire under | | | fluoroscopy and engaged to the left main artery. Dye injected into | | | the left coronary system and multiple angiographic pictures of the | | | left coronary system were taken in multiple projections. The JL4 | | | catheter was exchanged over the guidewire by a 6-[place]an RCA Victor Hugo | | | catheter that was advanced over the guidewire under fluoroscopy and | | | engaged to the RCA, dye injected into the RCA, and multiple | | | angiographic pictures of the RCA were taken in multiple projections. | | | The RCA catheter was taken out over the guidewire. Angiography of the | | | right common femoral artery was performed, injecting dye through the | | | side port of the arterial sheath for possible closure device | | | deployment. Angio-Seal closure device was deployed with successful | | | hemostasis obtained. The patient tolerated the procedure well. He was | | | hemodynamically stable at the end of the procedure and was | | | transferred of the catheterization lab in stable condition. | | | FINDINGS HEMODYNAMICS The opening aortic pressure was 176/95. The LV | | | pressure was 165/10 with the LV EDP calculated at 15 mmHg. There was | | | no significant pressure gradient recorded across the aortic valve | | | upon pulling back the pigtail catheter across the valve. The closing | | | aortic pressure was 158/83. LEFT VENTRICULOGRAM Left | | | ventriculogram reveals normal left ventricular systolic function. The | | | LV ejection fraction is visually estimated at 65%. The LV segmental | | | wall motion appears normal except, perhaps, for a mild mid and distal | | | anterior wall hypokinesis. No significant mitral regurgitation was | | | seen. The aortogram revealed normal ascending aorta and aortic root. | | | There is no aneurysmal dilation and no dissection and no AI. | | | CORONARY ANGIOGRAPHY The left main is a large-caliber vessel that | | | trifurcates, giving rise to the LAD, left circumflex artery, and a | | | ramus intermedius branch. The left main has 60% to 70% stenosis in | | | the distal segment. The LAD is a medium-caliber vessel that gives | | | rise to the diagonal branches and multiple septal branches. The LAD | | | has diffuse disease throughout the vessel. There is a 95% stenosis in | | | the mid to distal segment of the LAD. The first diagonal branch is a | | | medium-caliber vessel that has a 70% stenosis of the ostium. The | | | left circumflex is a medium-caliber vessel that gives rise to 3 | | | obtuse marginal branches. The left circumflex has a 90% stenotic | | | lesion in the mid segment. The ramus intermedius branch is a small- | | | to medium-caliber vessel that has no significant obstructive disease, | | | but the ostium of the vessel appears to be involved with a | | | significant stenosis. The RCA is a large-caliber, dominant vessel that | | | gives rise to the right PDA, NUZHAT, and 1 RV marginal branch. The RCA | | | has a 60% stenosis in the mid segment right at the origin of the | | | right ventricular marginal branch. The right PDA has a 90% stenosis | | | at the ostium. CONCLUSION 1. Multivessel occlusive coronary | | | artery disease as described above, including distal left main | | | stenosis estimated at 60% to 70%. 2. Normal left ventricular systolic | | | function. 3. Normal left ventricular pressures. PLAN The study | | | was reviewed by the cardiovascular surgeon, Dr. Carlin, who felt | | | that the patient is a good candidate for CABG. Dr. Carlin will be | | | talking to the patient and his family and schedule the surgery as soon | | | as possible. Otherwise, the patient was continued on aspirin, | | | beta-dixie, statin, and NELLY inhibitor. ESTIMATED BLOOD LOSS | | | Less than 50 mL. Read by NYDIA NORRIS MD 06/26/2009 07:49 P | | | Electronically Signed by NYDIA NORRIS MD 06/27/2009 02:35 P DD: | | | 06/26/2009 07:49 P A ASTRID/fredi/[id number]/ cc: | | | MD REECE CASSIDY MD | | + + + + + | Procedure Note | + + | Alfred Landry - 05/21/2019 2:58 AM PDT | | [id number] Page 1 | | CARDIOLOGY [facility] [address]/ | | OPS | | [facility] NAME: SIMON MCCARTHY | | [place] [address] | | | | DATE OF : 1940 | | | | ORDER NUMBER: [id number] | | EXAM DATE/TIME: 06/26/2009 12:30 P | | ORDERING PHYSICIAN: NYDIA NORRIS | | ORDER DETAIL: [id number] / / HCL | | EXAM DESCRIPTION: CCL HEART CATH LT RETRO PERC | | | | PROCEDURES | | 1. Left heart catheterization. | | 2. Left ventriculogram. | | 3. Aortogram. | | 4. Left and right selective coronary angiography. | | 5. Angiography of the right common femoral artery for possible closure | | device deployment. | | 6. Angio-Seal closure device deployment. | | | | INDICATIONS | | This is a 69-year-old pleasant male who presented to my office | | for evaluation secondary to symptoms of chest pressure and tightness as | | well as shortness of breath. He underwent a stress test that came back | | abnormal, showing evidence of ischemia and transient ischemic dilatation | | of the left ventricle. The patient was advised to undergo a left heart | | catheterization and coronary angiography to rule out significant | | coronary artery disease. The patient was informed about the risks, | | benefits, and alternatives of the procedure and an informed consent was | | obtained. | | | | DESCRIPTION OF PROCEDURE | | The patient was brought to the cardiac catheterization laboratory. He | | was prepped and sedated in the usual manner. The right groin was prepped | | in the usual sterile fashion. The right groin was anesthetized with 10 | | mL of 1% lidocaine solution. Then a 6-[place]an arterial sheath was | | inserted into the right common femoral artery using a modified Seldinger | | technique. The 6-[place]an pigtail catheter was advanced over the guidewire | | under fluoroscopy into the proximal aorta, and the opening aortic | | pressure was obtained. The pigtail catheter was advanced under | | fluoroscopy to the LV cavity and the pressures in the LV cavity were | | measured. Dye injected into the LV, and left ventriculogram in the MCKINNEY | | projection was obtained. The pigtail catheter was then pulled back | | across the aortic valve and the pressure gradient across the valve was | | recorded. The pigtail catheter was positioned under fluoroscopy in the | | proximal ascending aorta, dye injected and aortogram in the KARYN | | projection was obtained, and the pigtail catheter was exchanged over the | | guidewire by a 6-[place]an JL4 catheter that was advanced over the | | guidewire under fluoroscopy and engaged to the left main artery. Dye | | injected into the left coronary system and multiple angiographic | | pictures of the left coronary system were taken in multiple projections. | | The JL4 catheter was exchanged over the guidewire by a 6-S[place]an RCA | | Victor Hugo catheter that was advanced over the guidewire under fluoroscopy | | and engaged to the RCA, dye injected into the RCA, and multiple | | angiographic pictures of the RCA were taken in multiple projections. The | | RCA catheter was taken out over the guidewire. Angiography of the right | | common femoral artery was performed, injecting dye through the side port | | of the arterial sheath for possible closure device deployment. | | Angio-Seal closure device was deployed with successful hemostasis | | obtained. The patient tolerated the procedure well. He was | | hemodynamically stable at the end of the procedure and was transferred | | of the catheterization lab in stable condition. | | | | FINDINGS | | HEMODYNAMICS | | The opening aortic pressure was 176/95. The LV pressure was 165/10 with | | the LV EDP calculated at 15 mmHg. There was no significant pressure | | gradient recorded across the aortic valve upon pulling back the pigtail | | catheter across the valve. The closing aortic pressure was 158/83. | | | | LEFT VENTRICULOGRAM | | Left ventriculogram reveals normal left ventricular systolic function. | | The LV ejection fraction is visually estimated at 65%. The LV segmental | | wall motion appears normal except, perhaps, for a mild mid and distal | | anterior wall hypokinesis. No significant mitral regurgitation was seen. | | The aortogram revealed normal ascending aorta and aortic root. There is | | no aneurysmal dilation and no dissection and no AI. | | | | CORONARY ANGIOGRAPHY | | The left main is a large-caliber vessel that trifurcates, giving rise to | | the LAD, left circumflex artery, and a ramus intermedius branch. The | | left main has 60% to 70% stenosis in the distal segment. The LAD is a | | medium-caliber vessel that gives rise to the diagonal branches and | | multiple septal branches. The LAD has diffuse disease throughout the | | vessel. There is a 95% stenosis in the mid to distal segment of the LAD. | | The first diagonal branch is a medium-caliber vessel that has a 70% | | stenosis of the ostium. The left circumflex is a medium-caliber vessel | | that gives rise to 3 obtuse marginal branches. The left circumflex has a | | 90% stenotic lesion in the mid segment. The ramus intermedius branch is | | a small- to medium-caliber vessel that has no significant obstructive | | disease, but the ostium of the vessel appears to be involved with a | | significant stenosis. The RCA is a large-caliber, dominant vessel that | | gives rise to the right PDA, NUZHAT, and 1 RV marginal branch. The RCA has | | a 60% stenosis in the mid segment right at the origin of the right | | ventricular marginal branch. The right PDA has a 90% stenosis at the | | ostium. | | | | CONCLUSION | | 1. Multivessel occlusive coronary artery disease as described above, | | including distal left main stenosis estimated at 60% to 70%. | | 2. Normal left ventricular systolic function. | | 3. Normal left ventricular pressures. | | | | PLAN | | The study was reviewed by the cardiovascular surgeon, Dr. Carlin, who | | felt that the patient is a good candidate for CABG. Dr. Carlin will be | | talking to the patient and his family and schedule the surgery as soon | | as possible. Otherwise, the patient was continued on aspirin, | | beta-dixie, statin, and NELLY inhibitor. | | | | ESTIMATED BLOOD LOSS | | Less than 50 mL. | | | | | | Read by | | NYDIA NORRIS MD 06/26/2009 07:49 P | | Electronically Signed by | | NYDIA NORRIS MD 06/27/2009 02:35 P | | | | P | | A | | ASTRID/[id number]/ | | cc: NYDIA NORRIS MD | | REECE ELIZONDO MD | + + documented in this encounter Visit Diagnoses + + | Diagnosis | + + | Nonspecific abnormal unspecified cardiovascular function study | + + documented in this encounter"
--- OUTSIDE RECORDS SUMMARY | ~2020-05-18 | XMS | Encounter Summary ---
Demographics + + + | Address | [address] | | | [place] [address] | + + + | Home Phone | | + + + | Preferred Language | Unknown | + + + | Marital Status | | + + + | Worship Affiliation | 1041 | + + + | Race | White | + + + | Ethnic Group | Not or | + + + Author + + + | Author | [facility] | | | and [place] | + + + | Organization | [facility] | | | and [place] | + + + | Address | Unknown | + + + | Phone | Unavailable | + + + Support + + + + + | Name | Relationship | Address | Phone | + + + + + | Tera Mccarthy | ECON | [place], [place] | | | | | [address] | | + + + + + | Alicia Mccarthy | ECON | [address] | | | | | [place] [address] | | + + + + + Care Team Providers + +------+ + | Care Car Shifter Name | Role | Phone | + [...] + + | 07/31/ | Office | [facility] | Connie Alvarez | SVT | | 2019 | Visit | CARDIOLOGY [place] | [address] | (supraventricular | | | | [address] | [address] | tachycardia) ([facility]) | | | | [address] | [place] [address] | (Primary Dx); | | | | [address] | [phone] | Tachyarrhythmia; | | | | [phone] | | Coronary artery | | | | | | disease involving | | | | | | rosebud coronary | | | | | | artery of rosebud | | | | | | heart [...] | | | | | | disease ([facility]); | | | | | | Asymmetric [...] rupture | | | | | | ([facility]); Bilateral | | | | [...] HISTORY OF PRESENT ILLNESS: Mr. Simon Mccarthy [facility], is a 79-year-old man who is here today to follow up dizziness . He is a patient of Dr. Lim and last seen by him in July 2016, and has not followed u p with him since Dr. Lim stopped coming to [place], as difficult for him He has a [...] also recommended he be evaluated for sleep advertising sales manager ea, but the patient had declined, [...] hospitalized from May 16 until May 19 [facility] with acute CVA [...] over,to be with Him,and they called the welder helper weapons officer and was told to immediately resume [...] [facility] [place] Last echo: 05/17/2019 ([facility]): EF 75%. LV normal in size [...] Mild TR. No pu lmonary hypertension. Mild KY. No pericardial effusion. IVC not well visualized. No mass , no clot VASCULAR PROCEDURES/ IMAGING Ct Angiogram Head Neck Acute Stroke:05/16/2019:[facility] w/ stroke: 1. The right vertebral [...] No acute intracranial findings Brain MRI:05/17/2019: [facility] w/ stroke: Abnormal diffusion restriction is seen in the right centrum semiovale compatible with an area of acute infarction. CEA: 02/2010: Right and left carotid artery endarterectomy Last carotid ultrasound: 04/26/2019:( [facility]) Atheromatous changes in the carotid arteries [...] elevation to anterior leads. Rate 67 bpm, KY 226 ms, QRS 108 ms, QTC 388 ms EK: Normal sinus rhythm, incomplete bundle branch block, prior septal infarct . First-degree A-V block. Rate 80 bpm, KY 206 ms, QRS 106 ms, QTC 420 ms (personally revie wed by me in the office today and when compared to EKG done in 2013 KY interval has decrease d ) EK05/31/2018: Sinus rhythm with first-degree AV block, incomplete right bundle branch bloc k. Old septal infarct Rate 60 bpm, KY 230 ms, QRS 108 ms, QTC 390 ms him a tracing persona lly reviewed by me, similar morphology to July 2017 EKG, except for increased first-degr ee block EK05/16/2019: Sinus rhythm with first-degree AV block, incomplete right bundle branch blo ck, LVH, old septal infarct w/ low voltage QRS leads II aVF. Rate 61 bpm, KY 226 ms, QRS 11 0 ms, QTC 410 ms, tracing personally reviewed by me EK05/23/2019: Sinus rhythm with first-degree AV block, stable incomplete right bundle bra nch block, LVH, old septal infarct. Rate 70 bpm, KY 230 ms, QRS 140 ms, QTC 410 ms, tracing personally reviewed by me, and similar morphology to previous EKG performed in April 2019, in May 2018 EK05/30/2019:( [facility]) Sinus rhythm with first-degree block, incomplete right bundle branch block, old inferior infarct. Rate 76 bpm, KY 222 ms, QRS 106 ms, QTC 398 ms tracing person ally reviewed by me. EK06/01/2019: ( [facility]) SVT, incomplete right bundle branch block. Rate 124 bpm, QRS 108 ms , QTC 451 ms, tracing personally reviewed by me EK06/19/2019: ( metoprolol XL 50 mg) sinus rhythm with first-degree AV block and septal i nfarct, incomplete right bundle branch block. Rate 64 bpm, KY 224 ms, QRS 108 ms, QTC 402 m s, tracing personally reviewed by me EK07/31/2019: (metoprolol XL 50 mg /Digoxin 125 mcg) Sinus rhythm with first-degree AV bl ock, incomplete right bundle branch block, previous anterior VA, rate 69 bpm, KY 240 ms, QRS 102 ms, QTC 390 [...] Dr. Yu on 09/12/2019,to be his primary welder helper, as he would prefer to see a welder helper who comes to [place] He needs to have a lithotripsy for [...] 2. Tachyarrhythmia 3. Coronary artery disease involving rosebud coronary artery of rosebud heart without angina pectoris 4. Hx of [...] past surgical history. Problem list. Poly [facility] 07/31/2019 Radha ford in this [...] [address] | | | | | | [place] [address] | | | | | | [phone] | | | | | | | [...] | | | | PST | tachycardia) ([facility]) | results section. | | | | | Tachyarrhythmia | | | | | | Coronary artery | | | | | | disease involving | | | | | | rosebud coronary | | | | | | artery of rosebud | | | | | | heart [...] | | | | | by [facility] Read Only, | | | | | | [facility] ([id number]), | | | | | | associate entertainment editor Tate Lozano | | | | [...] + + | Coronary artery disease involving rosebud coronary artery of rosebud heart without | | angina pectoris | [...]
--- OUTSIDE RECORDS SUMMARY | ~2020-05-18 | XMS | Encounter Summary ---
Demographics + + + | Address | [address] | | | [place] [address] | + + + | Home Phone [...] + + + | Author | [facility] | | | and [place] | + + + | Organization | [facility] | | | and [place] | + + + | Address | Unknown | + + + | Phone | Unavailable | + + + Support + + + + + | Name | Relationship | Address | Phone | + + + + + | Tera Mccarthy | ECON | [place], [place] | | | | | [address] | | + + + + + | Alicia Mccarthy | ECON | [address] | | | | | [place] [address] | | + + + + + Care Team Providers + +------+ + | Care Casino Dealer Name | Role | Phone | + +------+ + | Matias Muñoz MD | PCP | | + +------+ + Encounter Details +--------+ + + + + | Date | Type | Department | Care Team | Description | +--------+ + + + + | 06/11/ | Orders Only | [facility] | Nasir Lim, | | | 2013 | | CARDIOLOGY [facility] [place] | [address] | | | | | [place] [address] | [place] [address] | | | | | [place], [place] | [phone] | | | | | [address] | | | | | | [phone] | | | +--------+ + + + [...] [address] | | | | | | [place] [address] | | | | | | [phone] | | | | | | | | +--------+---------+ + + + documented as of this encounter Procedures + +--------+ + + + | Procedure Name | Priori | Date/Time | Associated Diagnosis | Comments | | | ty | | | | + +--------+ + + + | VAS CAROTID DUPLEX | Routin | 06/11/2014 | | Results for this | | BILATERAL | e | 11:55 AM | | procedure are in the | | | | PDT | | results section. | + +--------+ + + + documented in this encounter Results VAS Carotid Duplex Bilateral (06/11/2014 11:55 AM PDT) + + | Specimen | + + | | + + + + + | Impressions | Performed At | + + + | 1. The right internal carotid artery is widely patent with no | | | evidence of re-stenosis. | | + + + + + + | Narrative | Performed At | + + + | Patient Name: SIMON MCCARTHY Date of : 1940 | | | Performing Physician: Nasir Lim MD, | | | FACC, FACP, FASNC | | | | | | ------REPORT ADDENDED------ INDICATIONS Hx of bilateral | | | CEA CONCLUSIONS 1. The right internal carotid | | | artery is widely patent with no evidence of re-stenosis. FINDINGS | | | -------- Right CCA: The right common carotid artery is patent and | | | demonstrates mild atherosclerotic plaque in the common carotid artery | | | corresponding with a 1-49% right common carotid stenosis. Right ICA: | | | The right internal carotid artery is widely patent with no evidence of | | | re-stenosis. Right ECA: The right external carotid artery is patent | | | with 1-49% stenosis. Right Vertebral: The right vertebral artery | | | demonstrates antegrade flow. Right Subclavian Artery: Doppler window | | | filling within the right subclavian artery waveform suggests 1-19% | | | stenosis. Left CCA: The left common carotid artery demonstrates | | | mild atherosclerotic plaque in the common carotid artery corresponding | | | with 1-49% stenosis Left ICA: The left internal carotid artery is | | | widely patent with no evidence of re-stenosis. Left ECA: The left | | | external carotid artery demonstrates mild atherosclerotic plaque | | | corresponding with a 1-49% left external carotid stenosis. Left | | | Vertebral: The left vertebral artery demonstrates antegrade flow. | | | Left Subclavian Artery: Doppler window filling within the left | | | subclavian artery waveform suggests 1-19% stenosis. MEASUREMENTS | | | CCA AC: 49 deg CCA ED: 21.22 cm/s CCA ED: | | | 13.53 cm/s CCA ED: 14.57 cm/s CCA ED: 13.39 cm/s CCA PS: | | | 95.77 cm/s CCA PS: 59.13 cm/s CCA PS: 59.31 cm/s CCA PS: | | | 74.89 cm/s ICA/CCA ED: 1.19 ICA/CCA ED: 1.82 ICA/CCA PS: | | | 0.71 ICA/CCA PS: 0.90 ECA AC: 42 deg ECA AC: 46 deg ECA | | | ED: 9.36 cm/s ECA ED: 14.44 cm/s ECA PS: 62.29 cm/s ECA | | | PS: 91.68 cm/s ICA AC: 56 deg ICA AC: 38 deg ICA AC: 22 | | | deg ICA AC: 55 deg ICA AC: 60 deg ICA AC: 55 deg ICA ED: | | | 25.33 cm/s ICA ED: 20.93 cm/s ICA ED: 21.03 cm/s ICA ED: | | | 24.51 cm/s ICA ED: 7.56 cm/s ICA ED: 8.20 cm/s ICA PS: | | | 68.78 cm/s ICA PS: 58.08 cm/s ICA PS: 52.25 cm/s ICA PS: | | | 67.58 cm/s ICA PS: 29.02 cm/s ICA PS: 39.19 cm/s SUBC PS: | | | 85.41 cm/s SUBC PS: 121.77 cm/s VERT AC: 43 deg VERT ED: | | | 17.64 cm/s VERT ED: 10.46 cm/s VERT PS: 59.59 cm/s VERT PS: | | | 28.19 cm/s Window Sash Installer: ARMIN Authenticated by: Nasir Lim | | | MD, FACC, FACP, FASNC Report Date/Time: -- [id number]:34:30 | | + + + + + | Procedure Note | + + | Frantz, Rad Conversion - 05/17/2019 10:09 PM PDT Patient Name: SIMON MCCARTHY | | of : 1940 Performing Physician: Nasir Lim MD, [facility], | | SHARITA DRAKE ------REPORT | | ADDENDED------INDICATIONS Hx of bilateral CEA CONCLUSIONS 1. The | | right internal carotid artery is widely patent with no evidence of re-stenosis. | | FINDINGS--------Right CCA: The right common carotid artery is patent and demonstrates | | mild atherosclerotic plaque in the common carotid artery corresponding with a 1-49% | | right common carotid stenosis.Right ICA: The right internal carotid artery is widely | | patent with no evidence of re-stenosis.Right ECA: The right external carotid artery is | | patent with 1-49% stenosis.Right Vertebral: The right vertebral artery demonstrates | | antegrade flow.Right Subclavian Artery: Doppler window filling within the right | | subclavian artery waveform suggests 1-19% stenosis.Left CCA: The left common carotid | | artery demonstrates mild atherosclerotic plaque in the common carotid artery | | corresponding with 1-49% stenosisLeft ICA: The left internal carotid artery is widely | | patent with no evidence of re-stenosis.Left ECA: The left external carotid artery | | demonstrates mild atherosclerotic plaque corresponding with a 1-49% left external | | carotid stenosis.Left Vertebral: The left vertebral artery demonstrates antegrade | | flow.Left Subclavian Artery: Doppler window filling within the left subclavian artery | | waveform suggests 1-19% stenosis. MEASUREMENTS CCA AC: 49 degCCA ED: | | 21.22 cm/sCCA ED: 13.53 cm/sCCA ED: 14.57 cm/sCCA ED: 13.39 cm/sCCA PS: 95.77 | | cm/sCCA PS: 59.13 cm/sCCA PS: 59.31 cm/sCCA PS: 74.89 cm/Jim/CCA ED: | | 1.19ICA/CCA ED: 1.82ICA/CCA PS: 0.71ICA/CCA PS: 0.90ECA AC: 42 degECA AC: 46 | | degECA ED: 9.36 cm/sECA ED: 14.44 cm/sECA PS: 62.29 cm/sECA PS: 91.68 cm/Jim | | AC: 56 degICA AC: 38 degICA AC: 22 degICA AC: 55 degICA AC: 60 degICA AC: 55 | | degICA ED: 25.33 cm/Jim ED: 20.93 cm/Jim ED: 21.03 cm/Jim ED: 24.51 cm/Jim | | ED: 7.56 cm/Jim ED: 8.20 cm/Jim PS: 68.78 cm/Jim PS: 58.08 cm/Jmi PS: | | 52.25 cm/Jim PS: 67.58 cm/Jim PS: 29.02 cm/Jim PS: 39.19 cm/sSUBC PS: 85.41 | | cm/sSUBC PS: 121.77 cm/sVERT AC: 43 degVERT ED: 17.64 cm/sVERT ED: 10.46 | | cm/sVERT PS: 59.59 cm/sVERT PS: 28.19 cm/s Window Sash Installer: DHAuthenticated by: Nasir | | Carina MELENDEZ, FACC, FACP, FASNCReport Date/Time: -- 21_[id number]:34:30 IMPRESSION: 1. | | The right internal carotid artery is widely patent with no evidence of re-stenosis. | |MEASUREMENTS | | | |CCA AC: 49 deg | |CCA ED: 21.22 cm/s | |CCA ED: 13.53 cm/s | |CCA ED: 14.57 cm/s | |CCA ED: 13.39 cm/s | |CCA PS: 95.77 cm/s | |CCA PS: 59.13 cm/s | |CCA PS: 59.31 cm/s | |CCA PS: 74.89 cm/s | |ICA/CCA ED: 1.19 | |ICA/CCA ED: 1.82 | |ICA/CCA PS: 0.71 | |ICA/CCA PS: 0.90 | |ECA AC: 42 deg | |ECA AC: 46 deg | |ECA ED: 9.36 cm/s | |ECA ED: 14.44 cm/s | |ECA PS: 62.29 cm/s | |ECA PS: 91.68 cm/s | |ICA AC: 56 deg | |ICA AC: 38 deg | |ICA AC: 22 deg | |ICA AC: 55 deg | |ICA AC: 60 deg | |ICA AC: 55 deg | |ICA ED: 25.33 cm/s | |ICA ED: 20.93 cm/s | |ICA ED: 21.03 cm/s | |ICA ED: 24.51 cm/s | |ICA ED: 7.56 cm/s | |ICA ED: 8.20 cm/s | |ICA PS: 68.78 cm/s | |ICA PS: 58.08 cm/s | |ICA PS: 52.25 cm/s | |ICA PS: 67.58 cm/s | |ICA PS: 29.02 cm/s | |ICA PS: 39.19 cm/s | |SUBC PS: 85.41 cm/s | |SUBC PS: 121.77 cm/s | |VERT AC: 43 deg | |VERT ED: 17.64 cm/s | |VERT ED: 10.46 cm/s | |VERT PS: 59.59 cm/s | |VERT PS: 28.19 cm/s | | | |Window Sash Installer: ARMIN | |Authenticated by: Nasir Lim MD, FACC, FACP, FASPR | |Report Date/Time: -- [id number]:34:30 | | | |IMPRESSION: | |1. The right internal carotid artery is widely patent with no evidence of re-stenosis. | + + documented in this encounter Visit Diagnoses Not on filedocumented in this encounter"
--- OUTSIDE RECORDS SUMMARY | ~2020-05-18 | XMS | Encounter Summary ---
Demographics + + + | Address | [address] | | | [place] [address] | + + + | Home Phone | | + + + | Preferred Language | Unknown | + + + | Marital Status | | + + + | Mandaen Affiliation | 1041 | + + + | Race | White | + + + | Ethnic Group | Not or | + + + Author + + + | Author | [facility] | | | and [place] | + + + | Organization | [facility] | | | and [place] | + + + | Address | Unknown | + + + | Phone | Unavailable | + + + Support + + + + + | Name | Relationship | Address | Phone | + + + + + | Tera Mccarthy | ECON | [place] | | | | | [address] | | + + + + + | Alicia Mccarthy | ECON | [address] | | | | | [place] [address] | | + + + + + Care Team Providers + +------+ + | Care Forms Builder Name | Role | Phone | + [...] + + | 07/10/ | Documentati | [facility] | Ivana Howard, | Other (end of study) | | 2019 | on | CARDIOLOGY ANNA | Technologist | | | | | [address] | | | | | | [place] | | | | | | [address] | | | | | | [phone] | | | +--------+ + + + [...] Technologist - 07/10/2019 11:59 PM PDT Cardiac Field Clinical Engineer Date of Event Monitor: 07/10/19 Referring Physician: [...] [address] | | | | | | [place] [address] | | | | | | [phone] | | | | | | | | +--------+---------+ + + + documented as of this encounter Visit Diagnoses + + | Diagnosis | + + | SVT (supraventricular tachycardia) (HCC) Other specified cardiac dysrhythmias | + + | Tachycardia, unspecified | + + documented in this encounter"
--- OUTSIDE RECORDS SUMMARY | ~2020-05-18 | XMS | Encounter Summary ---
Demographics + + + | Address | [address] | | | [place] [address] | + + + | Home Phone | | + + + | Preferred Language | Unknown | + + + | Marital Status | | + + + | Jain Affiliation | 1041 | + + + | Race | White | + + + | Ethnic Group | Not or | + + + Author + + + | Author | [facility] | | | and [place] | + + + | Organization | [facility] | | | and [place] | + + + | Address | Unknown | + + + | Phone | Unavailable | + + + Support + + + + + | Name | Relationship | Address | Phone | + + + + + | Tera Mccarthy | ECON | [place] | | | | | [address] | | + + + + + | Alicia Mccarthy | ECON | [address] | | | | | [place] [address] | | + + + + + Care Team Providers + +------+ + | Care Dressing Room Attendant Name | Role | Phone | [...] | Cough | MD Lio | [address] | | | | | Procedures | [address] | [place], | | | | | CT Chest wo | [place] | [place] [address] | | | | | Contrast | [place], | Phone: | | | | | | [place] [address] | [phone] | | | | | | Phone: | Fax: | | | | | | [phone] | [phone] | | | | | | Fax: | | | | | | | [phone] | | +--------+--------+ + + + + [...] [address] | | | | | [address] [place], | [place], [place] | | | | | [place] [address] | [address] | | | | | [phone] | | | +--------+ + + + [...] [address] | | | | | | [place] [address] | | | | | | [phone] | | | | | | | | +--------+---------+ + + + documented as of this encounter Results CT Chest wo Contrast (07/13/2013 3:30 PM PDT) + + | Specimen | + + | | + + + + + | Narrative | Performed At | + + + | [facility] | [facility] | | Department [address] [place] [address] | [facility] | | [ rep ct street[address]] [ rep ct [facility] | | st zip] Signed | - IMAGING | | | | | Patient Name: SIMON MCCARTHY Physician: | | | ALBERTO : 1940 Age: 73 Sex: M Unit #: [id number] | | | Exam Date: 07/13/13 Location: [facility] | | | Report #: [id number] Page: | | | %(RAD)RES..mtdd.print.filter("pg") of %(RAD) | | | RES..mtdd.print.filter("tpg") | | | | | | Accession Number: [id number] | | | CT CHEST WITHOUT CONTRAST, [...] Transcribed Date/Time: | | | 07/13/2013 16:26 Patrol Officer: | | | <<Signature on File>> | | | Michael | | | MD Leoncio07/13/13 1636 <Electronically signed by Michael Fang MD> | | | Michael Fang MD 07/13/13 1530 Patrol Officer: [employer] | | | Frclfctbddvvq91/18/13 1626 Lio Mendez MD | | | | | + + + + + + + + | Performing | Address | City/State/Zipcode | Phone Number | | Organization | | | | + + + + + | [facility] | [address] | [place], [place] | [phone] | | [facility] | | [address] | | | - IMAGING | | | | + + + + + documented in this encounter Visit Diagnoses + + | Diagnosis | + + | Cough - Primary | + + documented in this encounter
--- OUTSIDE RECORDS SUMMARY | ~2020-05-18 | XMS | Encounter Summary ---
Demographics + + + | Address | [address] | | | [place] [address] | + + + | Home Phone [...] Author | [facility] | | | and [...] [place], [place] | | | | | [address] | | + + + + + | Alicia Mccarthy | ECON | [address] | | | | | [place] [address] | | + + + + + Care Team Providers + +------+ + | Care Skinner Pelts Name | Role | Phone | + [...] + + | 05/23/ | Telephone | [facility] | Socorro Toney | Other (Reminded | | 2018 | | CARDIOLOGY [place], Keyseater Operator | patient to bring | | | | [address] | | meds. ) | | | | [address] | | | | | | [address] | | | | | | [phone] | | | +--------+ + + + [...] Miscellaneous Notes Telephone Encounter - Socorro Toney, Keyseater Operator - 05/23/2019 9:29 AM PDTCalled patient to remind them of their appointment, patient did not answer, so I left a detailed m essage asking them to bring their medications in the original bottles, and to call us back i f they have any questions. We expect to see them for their scheduled time. JDW:CHARGE LPN-AAMA. [facility] umented in this encounter Plan of Treatment +--------+---------+ + + + | Date | Type | Specialty | Care Team | Description | +--------+---------+ + + + | 06/25/ | Office | Cardiology | Connie Alvarez | | | 2019 | Visit | | [address] | | | | | | [address] | | | | | | [place] [address] | | | | | | [phone] | | | | | | | | +--------+---------+ + + + documented as of this encounter Visit Diagnoses Not on filedocumented in this encounter"
--- OUTSIDE RECORDS SUMMARY | ~2020-05-18 | XMS | Encounter Summary ---
Demographics + + + | Address | [address] | | | [place] [address] | + + + | Home Phone | | + + + | Preferred Language | Unknown | + + + | Marital Status | | + + + | Sikhism Affiliation | 1041 | + + + | Race | White | + + + | Ethnic Group | Not or | + + + Author + + + | Author | [facility] | | | and [place] | + + + | Organization | [facility] | | | and [place] | + + + | Address | Unknown | + + + | Phone | Unavailable | + + + Support + + + + + | Name | Relationship | Address | Phone | + + + + + | Tera Mccarthy | ECON | [place], [place] | | | | | [address] | | + + + + + | Alicia Mccarthy | ECON | [address] | | | | | [place] [address] | | + + + + + Care Team Providers + +------+ + | Care Block Saw Operator Name | Role | Phone | + +------+ + | Brittany Meehan MD | PCP | | + +------+ + Encounter Details +--------+---------+ + + + | Date | Type | Department | Care Team | Description | +--------+---------+ + + + | 06/25/ | Office | [facility] | Sammie Reese, | Ischemic stroke | | 2019 | Visit | NEUROLOGY [address] | ([facility]) (Primary Dx); | | | | [address] | [address] | Facial weakness; | | | | [place], [place] | [place] [address] | Orthostatic | | | | [address] | [phone] | lightheadedness; | | | | [phone] | | Exercise counseling | +--------+---------+ + [...] HPI I have seen this patient in [facility] on 05/16/19 for stroke RFs: HLD, [...] Date Abdominal aortic aneurysm (AAA) without rupture ([facility]) 06/20/2019 Arthralgia ASHD (arteriosclerotic heart disease) Atherosclerosis Benign essential hypertension Bronchiectasis (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) Polycythemia vera ([facility]) 2015 Renal stone Sciatica Sinusitis Chronic Stroke ([facility]) Trigeminy Ventricular pre-excitation Family History Problem Relation [...] | | | | [place] [address] | | | | | | [phone] | | | | | | | [...]
--- OUTSIDE RECORDS SUMMARY | ~2020-05-18 | XMS | Encounter Summary ---
Demographics + + + | Address | [address] | | | [place] [address] | + + + | Home Phone | | + + + | Preferred Language | Unknown | + + + | Marital Status | | + + + | Roman Catholic Affiliation | 1041 | + + + | Race | White | + + + | Ethnic Group | Not or | + + + Author + + + | Author | [facility] | | | and [place] | + + + | Organization | [facility] | | | and [place] | + + + | Address | Unknown | + + + | Phone | Unavailable | + + + Support + + + + + | Name | Relationship | Address | Phone | + + + + + | Tera Mccarthy | ECON | [place], [place] | | | | | [address] | | + + + + + | Alicia Mccarthy | ECON | [address] | | | | | [place] [address] | | + + + + + Care Team Providers + +------+ + | Care Woodworking Shop Hand Name | Role | Phone | + +------+ + PCP | Unavailable | + +------+ + Encounter Details +--------+ + + + + | Date | Type | Department | Care Team | Description | +--------+ + + + + | 03/25/ | Hospital | [facility] | Alexis Carlin, | Carotid art occ w/o | | 2009 - | Encounter | MEDICAL CENTER | [address] | [facility] | | | | INTENSIVE CARE UNIT | [address] | | | 03/26/ | | [address] | [place] [address] | | | 2009 | | [place], [place] | [phone] | | | | | [address] | | | | | | [phone] | | | +--------+ + + + [...] [place] | | | | | | [place] [address] | | | | | | [phone] | | | | | | | | +--------+---------+ + + + documented as of this encounter Visit Diagnoses + + | Diagnosis | + + | Occlusion and stenosis of carotid artery without mention of cerebral infarction | + + documented in this encounter"
--- OUTSIDE RECORDS SUMMARY | ~2020-05-18 | XMS | Encounter Summary ---
Demographics + + + | Address | [address] | | | [place] [address] | + + + | Home Phone [...] | Author | [facility] | | | and [...] [place], [place] | | | | | [address] | | + + + + + | Alicia Mccarthy | ECON | [address] | | | | | [place] [address] | | + + + + + Care Team Providers + +------+ + | Care Radiology Administrator Name | Role | Phone | + [...] + + | 10/17/ | Telephone | [facility] | Lio Mendez, | Other (Med question) | | 2013 | | PULMONARY [address] | MD [address] | | | | | [place], | [place] | | | | | [place] [address] | [address] | | | | | [phone] | | | +--------+ + + + [...] [place] | | | | | | [place] [address] | | | | | | [phone] | | | | | | | | +--------+---------+ + + + documented as of this encounter Visit Diagnoses Not on filedocumented in this encounter
--- OUTSIDE RECORDS SUMMARY | ~2020-05-18 | XMS | Encounter Summary ---
Demographics + + + | Address | [address] | | | [place] [address] | + + + | Home Phone | | + + + | Preferred Language | Unknown | + + + | Marital Status | | + + + | Anabaptist Affiliation | 1041 | + + + | Race | White | + + + | Ethnic Group | Not or | + + + Author + + + | Author | [facility] | | | and [place] | + + + | Organization | [facility] | | | and [place] | + + + | Address | Unknown | + + + | Phone | Unavailable | + + + Support + + + + + | Name | Relationship | Address | Phone | + + + + + | Tera Mccarthy | ECON | [place], [place] | | | | | [address] | | + + + + + | Alicia Mccarthy | ECON | [address] | | | | | [place] [address] | | + + + + + Care Team Providers + +------+ + | Care Mender Hand Name | Role | Phone | + +------+ + | Matias Muñoz MD | PCP | | + +------+ + Encounter Details +--------+ + + + + | Date | Type | Department | Care Team | Description | +--------+ + + + + | 07/02/ | Orders Only | [facility] | Nasir Lim, | | | 2015 | | CARDIOLOGY [place] | [address] | | | | | [place] [address] | [place] [address] | | | | | [place], [place] | [phone] | | | | | [address] | | | | | | [phone] | | | +--------+ + + + [...] | | | | [place] [address] | | | | | | [phone] | | | | | | | [...] VERT PS: 20.67 cm/s | | | Gluer Machine Operator: Authenticated by: Nasir Lim MD, FACC, FACP, | | | FASNC Report Date/Time: -- 77_[id number]_54:44:46 | | + + + + + [...] ED: 27.35 cm/Jim | | ED: 17.94 cm/Jim ED: 20.43 cm/Jim ED: 6.77 cm/Jim ED: 9.90 cm/Jim PS: | | 49.33 cm/Jim PS: 77.87 cm/Jim PS: 48.66 cm/Jim PS: 54.24 cm/Jim PS: 37.81 | | cm/Jim PS: 59.07 cm/sSUBC PS: 56.44 cm/sSUBC PS: 120.28 cm/sVERT ED: 13.00 | | cm/sVERT ED: 5.89 cm/sVERT PS: 48.68 cm/sVERT PS: 20.67 cm/s Gluer Machine Operator: | | DHAuthenticated by: Nasir Lim MD, FACC, FACP, FASNCReport Date/Time: -- | | [id number]:44:46 IMPRESSION: 1. Minimal disease of the right [...] |VERT PS: 20.67 cm/s | | | |Gluer Machine Operator: ARMIN | |Authenticated by: Nasir Lim MD, FACC, FACP, [facility] | |Report Date/Time: -- 12_53-30-7180_71:44:46 | | | |IMPRESSION: | |1. Minimal disease of the right internal carotid artery. S/P CEA. | |2. Minimal disease of the left internal carotid artery. S/P CEA. | + + documented in this encounter Visit Diagnoses Not on filedocumented in this encounter"
--- OUTSIDE RECORDS SUMMARY | ~2020-05-18 | XMS | Encounter Summary ---
Demographics + + + | Address | [address] | | | [place] [address] | + + + | Home Phone | | + + + | Preferred Language | Unknown | + + + | Marital Status | | + + + | Taoism Affiliation | 1041 | + + + | Race | White | + + + | Ethnic Group | Not or | + + + Author + + + | Author | [facility] [...] [place], [place] | | | | | [address] | | + + + + + | Alicia Mccarthy | ECON | [address] | | | | | [place] [address] | | + + + + + Care Team Providers + +------+ + | Care Hospice Manager Name | Role | Phone | [...] + + | 05/30/ | Telephone | [facility] | Jacob Sarkar | Schedule Testing ( | | 2018 | | CARDIOLOGY [place] | MD [address] | day monitor ) | | | | [address] | [address] | | | | | [place], [place] | [place] [address] | | | | | [address] | [phone] | | | | | [phone] | | | +--------+ + + + [...] [place] | | | | | | [place] [address] | | | | | | [phone] | | | | | | | | +--------+---------+ + + + documented as of this encounter Visit Diagnoses Not on filedocumented in this encounter"
--- OUTSIDE RECORDS SUMMARY | ~2020-05-18 | XMS | Encounter Summary ---
Demographics + + + | Address | [address] | | | [place] [address] | + + + | Home Phone | | + + + | Preferred Language | Unknown | + + + | Marital Status | | + + + | Rastafari Affiliation | 1041 | + + + | Race | White | + + + | Ethnic Group | Not or | + + + Author + + + | Author | [facility] [...] [place], [place] | | | | | [address] | | + + + + + | Alicia Mccarthy | ECON | [address] | | | | | [place] [address] | | + + + + + Care Team Providers + +------+ + | Care Metal Annealer Name | Role | Phone | + [...] | | [address] | I, Scallop Raker | hyperlipidemia; | | | | [place], [place] | | Hypertension goal BP | | | | [address] | | (blood pressure) < | | | | [phone] | | 140/80; Encounter | | | [...] | | | | | [place] [address] | | | | | | [phone] | | | | | | | [...] + + + | Date of | 162779 | | REFERENCE | | | Last [...] | | | level | performed at [facility];[address] | ng/mL | LAB | | | | [place] | | [facility] | | | | [address];[place] [address] | | LABORATORY | | + + + + + + + + | Specimen | + + | Blood | + + + + + + + | Performing | Address | City/State/Zipcode | Phone Number | | Organization | | | | + + + + + | REFERENCE LAB | [address] [place] [address] | [place], [place] | [phone] | | [facility] | [address] | [address] | | | LABORATORY | | | | + + + + + | REFERENCE LAB | [address] [place] [address] | [place], [place] | | | [facility] | [address] | [address] | | | LABORATORY | | | [...] | | | | | performed at [facility];[address] | | | | | | [facility] | | | | | | Blvd;[place] [address] | | | | | | | | | | + + + + + + + + | Specimen | + + | Blood | + + + + + + + | Performing | Address | City/State/Zipcode | Phone Number | | Organization | | | | + + + + + | REFERENCE LAB | [address] [facility] | [place] | [phone] | | [facility] | [address] | [address] | | | LABORATORY | | | | + + + + + | REFERENCE LAB | [address] | [place] | | | [facility] | [place]. | [address] | | | LABORATORY | | | [...]
--- OUTSIDE RECORDS SUMMARY | ~2020-05-18 | XMS | Encounter Summary ---
Demographics + + + | Address | [address] | | | [place] [address] | + + + | Home Phone [...] + | Author | [facility] | [...] [place], [place] | | | | | [address] | | + + + + + | Alicia Mccarthy | ECON | [address] | | | | | [place] [address] | | + + + + + Care Team Providers + +------+ + | Care Fur Blower Operator Name | Role | Phone | + +------+ + PCP | Unavailable | + +------+ + Encounter Details +--------+ + + + + | Date | Type | Department | Care Team | Description | +--------+ + + + + | 07/02/ | Hospital | [facility] | Alexis Rai, | Coronary | | 2008 - | Encounter | [facility]ICAL [facility]ENTER ACUTE | MD [address] | Atherosclerosis of | | | | CARE [address]LO[address] | [place] [facility] | | 07/09/ | [address] | [place] [address] | Artery | | 2008 | | [place], [place] | [phone] | | | | | [address] | | | | | | [phone] | | | +--------+ + + + [...] | | | | | | [place] [address] | | | | | | [phone] | | | | | | | | +--------+---------+ + + + documented as of this encounter Procedures + +--------+ + + + | Procedure Name | Priori | Date/Time | Associated Diagnosis | Comments | | | ty | | | | + +--------+ + + + | XR CHEST 2 VIEWS | Routin | 07/05/2009 | | Results for this | | | e | 8:52 AM | | procedure are in the | | | | PDT | | results section. | + +--------+ + + + | XR CHEST 1 VIEW | Routin | 07/03/2009 | | Results for this | | | e | 5:49 AM | | procedure are in the | | | | PDT | | results section. | + +--------+ + + + | XR CHEST 1 VIEW | Routin | 07/02/2009 | | Results for this | | | e | 8:28 PM | | procedure are in the | | | | PDT | | results section. | + +--------+ + + + | [place] | Routin | 07/02/2009 | | Results for this | | TRANSESOPHAGEAL(KAMLA) | e | 6:45 PM | | procedure are in the | | - PERIOPERATIVE | | PDT | | results section. | + +--------+ + + + documented in this encounter Results XR Chest 2 Vws (07/05/2009 8:52 AM PDT) + + | Specimen | + + | | + + + + + | Narrative | Performed At | + + + | [id number] | | | Page 1 RADIOLOGY | | | INT [id number]/ | | | I/P [facility] | | | CENTER NAME: [place] [address] | | | | | | | | | DATE OF : 1940 ORDER NUMBER: | | | [id number] EXAM DATE/TIME: 07/05/2009 05:00 A ORDERING PHYSICIAN: | | | ALEXIS RAI ORDER DETAIL: [id number] / / HDI EXAM DESCRIPTION: | | | XR CHEST 2 VIEW | | | | | | CHEST TWO VIEWS 07/05/2009 HISTORY 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 | | | COMPARISON Compared with 07/03/2009. FINDINGS The Colton-Shanta | | | catheter has been removed leaving a short sheath in place. The | | | bilateral pleural drains are unchanged in positions. Previous | | | sternotomy. There is mild bibasilar atelectasis, similar to the prior | | | study. A small left pleural effusion has developed. IMPRESSION | | | 1. Life support devices, as above. Small left pleural effusion noted. | | | 2. Mild bibasilar atelectasis. 3. Previous sternotomy. Read | | | by KYLE JOSEPH MD 07/05/2009 09:10 A Electronically Signed | | | by KYLE JOSEPH MD 07/06/2009 12:22 P | | | 09:10 A A YAMILE/faina/[id number]/ cc: ALEXIS | | | MD KYLE RAI MD NORMAN SITZ, | | | | | + + + + + | Procedure Note | + + | Alfred Landry Conversion - 05/21/2019 2:58 AM PDT | | [id number] Page 1 | | RADIOLOGY INT [id number]/ | | I/P | | [facility] NAME: [place] | | [place] [address] | | | | DATE OF : 1940 | | | | ORDER NUMBER: [id number] | | EXAM DATE/TIME: 07/05/2009 05:00 A | | ORDERING PHYSICIAN: ALEXIS RAI | | ORDER DETAIL: 7000 / / HDI | | EXAM DESCRIPTION: XR CHEST 2 VIEW | | | | CHEST TWO VIEWS 07/05/2009 | | | | HISTORY | | 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 | | | | COMPARISON | | Compared with 07/03/2009. | | | | FINDINGS | | The Colton-Shanta catheter has been removed leaving a short sheath in place. | | The bilateral pleural drains are unchanged in positions. Previous | | sternotomy. There is mild bibasilar atelectasis, similar to the prior | | study. A small left pleural effusion has developed. | | | | IMPRESSION | | 1. Life support devices, as above. Small left pleural effusion noted. | | 2. Mild bibasilar atelectasis. | | 3. Previous sternotomy. | | | | | | Read by | | KYLE JOSEPH MD 07/05/2009 09:10 A | | Electronically Signed by | | KYLE JOSEPH MD 07/06/2009 12:22 P | | | | A | | A | | [facility]/dc/[id number]/ | | cc: ALEXIS RAI MD | | KYLE JOSEPH MD | | REECE ELIZONDO MD | + + XR Chest 1 Vw (07/03/2009 5:49 AM PDT) + + | Specimen | + + | | + + + + + | Narrative | Performed At | + + + | [id number] | | | Page 1 RADIOLOGY | | | INT 81538/ | | | I/P [facility] | | | CENTER NAME: [place] [address] | | | | | | | | | DATE OF : 1940 ORDER NUMBER: | | | [id number] EXAM DATE/TIME: 07/03/2009 05:00 A ORDERING PHYSICIAN: | | | ALEXIS RAI ORDER DETAIL: 6980 / / HDI EXAM DESCRIPTION: | | | XR CHEST 1 VIEW | | | | | | ONE VIEW CHEST 07/03/2009 HISTORY Postoperative day 1 status post | | | open heart surgery. TECHNIQUE Portable AP upright view of the | | | chest was obtained. COMPARISON Compared with the prior | | | examination dated 07/02/2009 and 06/26/2009. FINDINGS There are | | | midline sternotomy wires that appear intact. There is a right sided | | | chest tube and a mediastinal drain that do not appear significantly | | | changed. There is Colton-Shanta catheter with its tip in the pulmonary | | | outflow tract in the region of the midline. There are defibrillator | | | pads seen overlying the chest wall. There is some hazy and linear | | | opacity seen in the lung bases bilaterally that are likely on the | | | basis of subsegmental atelectasis. There is suboptimal inspiration of | | | the lungs. IMPRESSION 1. Postoperative change with tubes and | | | lines as described above. 2. Some hazy and linear opacity seen in the | | | lung bases bilaterally that are likely on the basis of | | | subsegmental atelectasis. Read by RICHARD PRINGLE DO 07/03/2009 | | | 01:34 P Electronically Signed by RICHARD PRINGLE DO 07/04/2009 09:27 | | | P P P | | | JERAMY/octavio/[id number]/ cc: MD RICHARD SHAFFER, | | | DO REECE ELIZONDO MD | | + + + + + | Procedure Note | + + | Alfred Landry - 05/21/2019 2:58 AM PDT | | [id number] Page 1 | | RADIOLOGY INT [id number]/ | | I/P | | [facility] NAME: [place] | | [place] [address] | | | | DATE OF : 1940 | | | | ORDER NUMBER: [id number] | | EXAM DATE/TIME: 07/03/2009 05:00 A | | ORDERING PHYSICIAN: ALEXIS RAI | | ORDER DETAIL: 6980 / / HDI | | EXAM DESCRIPTION: XR CHEST 1 VIEW | | | | ONE VIEW CHEST 07/03/2009 | | | | HISTORY | | Postoperative day 1 status post open heart surgery. | | | | TECHNIQUE | | Portable AP upright view of the chest was obtained. | | | | COMPARISON | | Compared with the prior examination dated 07/02/2009 and 06/26/2009. | | | | FINDINGS | | There are midline sternotomy wires that appear intact. There is a right | | sided chest tube and a mediastinal drain that do not appear | | significantly changed. There is Colton-Shanta catheter with its tip in the | | pulmonary outflow tract in the region of the midline. There are | | defibrillator pads seen overlying the chest wall. There is some hazy and | | linear opacity seen in the lung bases bilaterally that are likely on the | | basis of subsegmental atelectasis. There is suboptimal inspiration of | | the lungs. | | | | IMPRESSION | | 1. Postoperative change with tubes and lines as described above. | | 2. Some hazy and linear opacity seen in the lung bases bilaterally that | | are likely on the basis of subsegmental atelectasis. | | | | | | Read by | | RICHARD PRINGLE DO 07/03/2009 01:34 P | | Electronically Signed by | | RICHARD PRINGLE DO 07/04/2009 09:27 P | | | | P | | P | | [facility]/[id number]/ | | cc: ALEXIS RAI MD | | RICHARD PRINGLE DO | | REECE ELIZONDO MD | + + XR Chest 1 Vw (07/02/2009 8:28 PM PDT) + + | Specimen | + + | | + + + + + | Narrative | Performed At | + + + | [id number] | | | Page 1 RADIOLOGY | | | INT [id number]/ | | | I/P [facility] | | | CENTER [place] [address] | | | | | | | | | DATE OF : 1940 ORDER NUMBER: | | | [id number] EXAM DATE/TIME: 07/02/2009 08:13 P ORDERING PHYSICIAN: | | | ALEXIS RAI ORDER DETAIL: 6980 / / HDI EXAM DESCRIPTION: | | | XR CHEST 1 VIEW | | | | | | CHEST ONE VIEW 07/02/2009 HISTORY Follow up after heart surgery. | | | COMPARISON Compared with 06/26/2009. FINDINGS An | | | endotracheal tube has been placed and its tip is 2 to 3 cm above the | | | mariusz. A Colton-Shanta catheter has also been placed and its tip is in | | | the main pulmonary artery. A left pleural drain is in place. An | | | external pacing device is noted. No definite pneumothorax or pleural | | | effusions are evident. There is mild bilateral perihilar atelectasis. | | | IMPRESSION 1. Life support devices, as above. No evidence of a | | | pneumothorax. 2. Interval heart surgery with mild bilateral | | | atelectasis noted. Read by KYLE JOSEPH MD 07/02/2009 | | | 08:37 P Electronically Signed by KYLE JOSEPH MD 07/04/2009 | | | 12:16 A P P | | | [facility]/[id number]/ cc: MD KYLE SHAFFER | | | MD REECE JOSEPH MD | | + + + + + | Procedure Note | + + | Alfred Landry Conversion - 05/21/2019 2:58 AM PDT | | [id number] Page 1 | | RADIOLOGY INT [id number]/ | | I/P | | [facility] NAME: [place] | | [place] [address] | | | | DATE OF : 1940 | | | | ORDER NUMBER: [id number] | | EXAM DATE/TIME: 07/02/2009 08:13 P | | ORDERING PHYSICIAN: ALEXIS RAI | | ORDER DETAIL: 6980 / / HDI | | EXAM DESCRIPTION: XR CHEST 1 VIEW | | | | CHEST ONE VIEW 07/02/2009 | | | | HISTORY | | Follow up after heart surgery. | | | | COMPARISON | | Compared with 06/26/2009. | | | | FINDINGS | | An endotracheal tube has been placed and its tip is 2 to 3 cm above the | | mariusz. A Colton-Shanta catheter has also been placed and its tip is in the | | main pulmonary artery. A left pleural drain is in place. An external | | pacing device is noted. No definite pneumothorax or pleural effusions | | are evident. There is mild bilateral perihilar atelectasis. | | | | IMPRESSION | | 1. Life support devices, as above. No evidence of a pneumothorax. | | 2. Interval heart surgery with mild bilateral atelectasis noted. | | | | | | Read by | | KYLE JOSEPH MD 07/02/2009 08:37 P | | Electronically Signed by | | KYLE JOSEPH MD 07/04/2009 12:16 A | | | | P | | P | | [facility]/[id number]/ | | cc: ALEXIS RAI MD | | KYLE JOSEPH MD | | REECE ELIZONDO MD | + + [place] Transesophageal (KAMLA) - Sridhar (07/02/2009 6:45 PM PDT) + + | Specimen | + + | | + + + + + | Narrative | Performed At | + + + | See medical record for report. This is a converted record that was | | | non-reportable in [employer] system. | | + + + + + | Procedure Note | + + | Alfred Landry Conversion - 05/21/2019 2:58 AM PDT See medical record for report. This is | | a converted record that was non-reportable in [employer] system. | + + documented in this encounter Visit Diagnoses + + | Diagnosis | + + | Coronary atherosclerosis of [place] coronary artery | + + documented in this encounter"
--- OUTSIDE RECORDS SUMMARY | ~2020-05-18 | XMS | Encounter Summary ---
Demographics + + + | Address | [address] | | | [place] [address] | + + + | Home Phone [...] | Author | [facility] | [...] [place], [place] | | | | | [address] | | + + + + + | Alicia Mccarthy | ECON | [address] | | | | | [place] [address] | | + + + + + Care Team Providers + +------+ + | Care Manager Occupational Name | Role | Phone | + [...] + + | 10/22/ | Telephone | [facility] | Cornel Sibley | Appointment | | 2020 | | [facility] | MD [address] | | | | | [address] | [address] | | | | | [place], [place] | [place] [address] | | | | | [address] | [phone] | | | | | [phone] | | | +--------+ + + + [...] 10/15/19. Patient is [facility]. He will not marjan [...] [place] | | | | | | [place] [address] | | | | | | [phone] | | | | | | | | +--------+---------+ + + + documented as of this encounter Visit Diagnoses Not on filedocumented in this encounter"
--- OUTSIDE RECORDS SUMMARY | ~2020-05-18 | XMS | Encounter Summary ---
Demographics + + + | Address | [address] | | | [place] [address] | + + + | Home Phone [...] | Author | [facility] | | | and [...] [place], [place] | | | | | [address] | | + + + + + | Alicia Mccarthy | ECON | [address] | | | | | [place] [address] | | + + + + + Care Team Providers + +------+ + | Care Pediatric Neurologist Name | Role | Phone | + +------+ + | Matias Muñoz MD | PCP | | + +------+ + Encounter Details +--------+ + + + + | Date | Type | Department | Care Team | Description | +--------+ + + + + | 04/17/ | Orders Only | [facility] | Provider, | Atherosclerotic | | 2018 | | SYSTEM GENERIC OP | MD Letty [address] | heart disease of | | | | CONVERSION [address] | [address] | [place] coronary | | | | [address] [place], [place] | [place] [address] | artery without | | | | [address] | | angina pectoris; | | | | [phone] | | Mixed | | | | [...] | | | | | | [place] [address] | | | | | | [phone] | | | | | | | [...] + + | Atherosclerotic heart disease of [place] coronary artery without angina pectoris | | Coronary atherosclerosis of [place] coronary artery | + + | Mixed hyperlipidemia | + + | Essential (primary) hypertension Unspecified essential hypertension | + + documented in this encounter"
--- OUTSIDE RECORDS SUMMARY | ~2020-05-18 | XMS | Encounter Summary ---
Demographics + + + | Address | [address] | | | [place] [address] | + + + | Home Phone | | + + + | Preferred Language | Unknown | + + + | Marital Status | | + + + | Christian Affiliation | 1041 | + + + | Race | White | + + + | Ethnic Group | Not or | + + + Author + + + | Author | [facility] | | | and [...] [place], [place] | | | | | [address] | | + + + + + | Alicia Mccarthy | ECON | [address] | | | | | [place] [address] | | + + + + + Care Team Providers + +------+ + | Care Hospitality Aide Name | Role | Phone | + [...] + + | 06/26/ | Telephone | [facility] | Socorro Toney | Medication Related | | 2018 | | CARDIOLOGY [place], Software Engineer Mobile | (Losartan 50mg was | | | | [address] | | making him dizzy, | | | | [facility] [place] | | went back down to | | | | [address] | | 25mg. ) | | | | [phone] | | | +--------+ + + + [...] Miscellaneous Notes Telephone Encounter - Socorro Toney Software Engineer Mobile - 06/26/2019 8:51 AM PDTCall m antonina to patient to advise of Dr. Yu's notes. Patient stated understanding and strongly agre ed to this plan. JDW:SECONDS GRADER-AAMA. el ephone Encounter - Socorro Toney Software Engineer Mobile - 06/26/2019 8:49 AM PDT----- Mess age from Shannan Yu DO sent at 06/25/2019 15:12 PDT ----- Regarding: RE: Patient questions about Losartan. Please have him decrease the dose back down to 25mg. Thanks. ----- Message ----- From: Socorro Toney Software Engineer Mobile Sent: 06/25/2019 15:02 To: Shannan Yu DO [...] on the 25mg. Please advise. Thank you! [facility] Plan of Treatment +--------+---------+ + + + | Date | Type | Specialty | Care Team | Description | +--------+---------+ + + + | 06/25/ | Office | Cardiology | Kim Connie | | | 2019 | Visit | | [address] | | | | | | [address] [place] | | | | | | [place] [address] | | | | | | [phone] | | | | | | | | +--------+---------+ + + + documented as of this encounter Visit Diagnoses Not on filedocumented in this encounter"
--- OUTSIDE RECORDS SUMMARY | ~2020-05-18 | XMS | Encounter Summary ---
Demographics + + + | Address | [address] | | | [place] [address] | + + + | Home Phone [...] + + + | Author | [facility] | | | and [place] | + + + | Organization | [facility] | | | and [place] | + + + | Address | Unknown | + + + | Phone | Unavailable | + + + Support + + + + + | Name | Relationship | Address | Phone | + + + + + | Tera Mccarthy | ECON | [place] | | | | | [address] | | + + + + + | Alicia Mccarthy | ECON | [address] | | | | | [place] [address] | | + + + + + Care Team Providers + +------+ + | Care Cigarette And Filter Chief Inspector Name | Role | Phone | [...] + + | 07/10/ | Clinical | [facility] | Connie Alvarez | SVT | | 2019 | Support | CARDIOLOGY [place] | [address] | (supraventricular | | | | [address] | tachycardia) ([facility]); | | | | [address] [place], [place] | [place] [address] | Tachyarrhythmia | | | | [address] | [phone] | | | | | [phone] | | | +--------+ + + + [...] [place] | | | | | | [place] [address] | | | | | | [phone] | | | | | | | | +--------+---------+ + + + documented as of this encounter Visit Diagnoses + + | Diagnosis | + + | SVT (supraventricular tachycardia) (HCC) Other specified cardiac dysrhythmias | + + | Tachyarrhythmia Tachycardia, unspecified | + + documented in this encounter"
--- OUTSIDE RECORDS SUMMARY | ~2020-05-18 | XMS | Encounter Summary ---
Demographics + + + | Address | [address] | | | [place] [address] | + + + | Home Phone | | + + + | Preferred Language | Unknown | + + + | Marital Status | | + + + | Spiritism Affiliation | 1041 | + + + | Race | White | + + + | Ethnic Group | Not or | + + + Author + + + | Author | [facility] | | | and [place] | + + + | Organization | [facility] | | | and [place] | + + + | Address | Unknown | + + + | Phone | Unavailable | + + + Support + + + + + | Name | Relationship | Address | Phone | + + + + + | Tera Mccarthy | ECON | [place], [place] | | | | | [address] | | + + + + + | Alicia Mccarthy | ECON | [address] | | | | | [place] [address] | | + + + + + Care Team Providers + +------+ + | Care Solid Surface Fabricator Name | Role | Phone | + +------+ + | Matias Muñoz MD | PCP | | + +------+ + Encounter Details +--------+ + + + + | Date | Type | Department | Care Team | Description | +--------+ + + + + | 04/03/ | Hospital | [facility] | Lio Mendez, | Chronic cough | | 2013 | Encounter | MED CTR XRAY [address] | MD [address] | | | | | [place] | [place], [place] | | | | | [place] [address] | [address] | | | | | [phone] | | | +--------+ + + + [...] [place] | | | | | | [place] [address] | | | | | | [phone] | | | | | | | [...] Performed At | + + + | [facility] | [place] | | Department [address] [facility] [place] | [facility] | | [ rep ct [address]] [ rep ct [facility] | | st zip] Signed | - IMAGING | | | | | Patient Name: SIMON MCCARTHY Physician: | | | ALBERTO. : 1940 Age: 73 Sex: M Unit #: [id number] | | | Exam Date: 04/03/13 [place] [facility] [place] | | | Report #: [id number] Page: | | | %(RAD)RES..mtdd.print.filter("pg") of %(RAD) | | | RES..mtdd.print.filter("tpg") | | | | | | Accession Number: [id number] | | | CHEST PA AND LATERAL [...] Transcribed Date/Time: 04/03/2013 16:39 | | | Drive Away Driver: <<Signature on File>> | | | | | | Duane Méndez MD04/03/13 6975 <Electronically signed by Duane Zaidi | | | Dev MELENDEZ> Duane Méndez MD 04/03/13 9719 | | | Drive Away Driver: Hand Talk [email or web address]/09/13 4819 | | | Lio Mendez MD | | + + + + + + + + | Performing | Address | City/[email or web address] | Phone Number | | Organization | | | | + + + + + | [facility] | [address] | [place] | [phone] | | [facility] | | [address] | | | - IMAGING | | | | + + + + + documented in this encounter Visit Diagnoses + + | Diagnosis | + + | Chronic cough Cough | + + documented in this encounter
--- OUTSIDE RECORDS SUMMARY | ~2020-05-18 | XMS | Encounter Summary ---
Demographics + + + | Address | [address] | | | [place] [address] | + + + | Home Phone | | + + + | Preferred Language | Unknown | + + + | Marital Status | | + + + | Scientologist Affiliation | 1041 | + + + | Race | White | + + + | Ethnic Group | Not or | + + + Author + + + | Author | [facility] | | | and [place] | + + + | Organization | [facility] | | | and [place] | + + + | Address | Unknown | + + + | Phone | Unavailable | + + + Support + + + + + | Name | Relationship | Address | Phone | + + + + + | Tera Mccarthy | ECON | [place], [place] | | | | | [address] | | + + + + + | Alicia Mccarthy | ECON | [address] | | | | | [place] [address] | | + + + + + Care Team Providers + +------+ + | Care Case Specialist Name | Role | Phone | [...] + + | 04/03/ | Office | [facility] | iLo Mendez, | Chronic cough | | 2012 | Visit | PULMONARY [address] | MD [address] | (Primary Dx); | | | | [place], | [place], [place] | Allergic rhinitis | | | | [place] [address] | [address] | | | | | [phone] | | | +--------+---------+ + + + [...] encounter Miscellaneous Notes Miscellaneous - ONBASE SCAN [facility] - 04/25/2013 12:00 AM PDT iscellaneous - ONBASE SCAN [facility] - 04/03/2013 12:00 AM PDTEle ctronically signed by Vania Davisva at 04/25/2013 11:09 AM PDTdocumented in this [...] [place] | | | | | | [place] [address] | | | | | | [phone] | | | | | | | | +--------+---------+ + + + documented as of this encounter Results XR Chest PA and Lateral (04/03/2013 2:19 PM PDT) + + | Specimen | + + | | + + + + + | Narrative | Performed At | + + + | [facility] | [facility] | | Department [address] [place] [address] | [facility] | | [ rep ct [address]] [ rep [facility] | | st zip] Signed | - IMAGING | | | | | Patient Name: SIMON MCCARTHY Physician: | | | : 1940 Age: 73 Sex: M Unit #: [id number] | | | Exam Date: 04/03/13 Location: [facility] | | | Report #: [id number] Page: | | | %(RAD)RES..mtdd.print.filter("pg") of %(RAD) | | | RES..mtdd.print.filter("tpg") | | | | | | Accession Number: [id number] | | | CHEST PA AND LATERAL [...] Transcribed Date/Time: 04/03/2013 16:39 | | | Fuel Truck Driver: <<Signature on File>> | | | | | | Duane Méndez MD04/03/13 7588 <Electronically signed by Duane Zaidi | | | Dev MELENDEZ> Duane Méndez MD 04/03/13 4135 | | | Fuel Truck Driver: Eros Laguna04/03/13 3305 | | | Lio Mendez MD | | + + + + + + + + | Performing | Address | City/State/Zipcode | Phone Number | | Organization | | | | + + + + + | [facility] | [address] | [place] | [phone] | | [facility] | | [address] | | | - IMAGING | | | | + + + + + documented in this encounter Visit Diagnoses + + | Diagnosis | + + | Chronic cough - Primary Cough | + + | Allergic rhinitis Allergic rhinitis, cause unspecified | + + documented in this encounter
--- OUTSIDE RECORDS SUMMARY | ~2020-05-18 | XMS | Encounter Summary ---
Demographics + + + | Address | [address] | | | [place] [address] | + + + | Home Phone [...] | Author | [facility] | | | and [...] [place] | | | | | [address] | | + + + + + | Alicia Mccarthy | ECON | [address] | | | | | [place] [address] | | + + + + + Care Team Providers + +------+ + | Care Library Acquisitions Technician Name | Role | Phone | + [...] + + | 08/11/ | Emergency | [facility] | Nicky Means, | Ataxia (Primary Dx); | | 2019 - | | [facility] | DO [address] | Sinus bradycardia; | | | | CARE FLOOR [address] | [place] [address] | Generalized | | 08/12/ | | [address] | [phone] | weakness; Ambulatory | | 2019 | | [place], [place] | | dysfunction; | | | | [address] | Rhoda Schultz, | Dizziness; | | | | [phone] | MD [address] | Dyslipidemia; | | | | | [place] [address] | History of CVA in | | | | | [phone] | adulthood | | | | | | | | | | | Viktor aHnd, | | | | | | MD [address] | | | | | | [place] [address] | | | | | | [phone] | | | | | | | [...] might be different f rom the original. [facility] Service: Hospitalist Physician Discharge Summary [...] of neurology, who was ad mitted to [facility] from May 30-2018 with a diagnosis of [...] BNP 122. .Initial EKG was reviewed with checker bakery products , reviewed that this NOT STEMI. CT [...] him to follow- up with his usual checker bak[employer] products for reevaluation and perhaps Holter monitor study [...] Date Abdominal aortic aneurysm (AAA) without rupture ([facility]) 06/20/2019 Arthralgia ASHD (arteriosclerotic heart disease) Atherosclerosis Benign essential hypertension Bronchiectasis (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) Polycythemia vera ([facility]) 2016 Renal stone Sciatica Sinusitis Chronic Stroke ([facility]) Trigeminy Ventricular pre-excitation Past Surgical [...] INFORMATION: Ataxia and dizziness. COMPARISON: MRI brain [id number]. CT head 08/11/2019 PROCEDURE: Sagittal T1, axial [...] arteries are normal in caliber. The bilateral bilingual sales assistant are normal in caliber. CTA Neck: Aortic [...] family Follow up: Brittany Meehan MD [address] [facility] [address] Schedule an appointment as soon as possible for a visit in 1 week For posthospitalization reevaluation Sammie Reese MD [address] [facility] [address] Schedule an appointment as soon [...] vessels, you may faint. Date Last Reviewed: 01/24/201819998877-6492 [employer]. [address] [place] [address], [place] [address]. All righ ts reserved. This information is [...] about: All medicines you take, including prescription, vzfd-nzb-ktmefrd, herbs, and supplements Any other symptoms you [...] back, or jaw pain Date Last Reviewed: 07/27/201719997778-8906 [employer]. [address] [place] [address]. All righ ts reserved. This information is [...] might be different f rom the original. [facility] Service: Hospitalist Admission History & [...] of neurology, who was ad mitted to [facility] from May 30-2018 with a diagnosis of [...] BNP 122. .Initial EKG was reviewed with checker bak[employer] , reviewed that this NOT STEMI. CT [...] Date Abdominal aortic aneurysm (AAA) without rupture ([facility]) 06/20/2019 Arthralgia ASHD (arteriosclerotic heart disease) Atherosclerosis Benign essential hypertension Bronchiectasis (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) Polycythemia vera ([facility]) 2016 Renal stone Sciatica Sinusitis Chronic Stroke ([facility]) Trigeminy Ventricular pre-excitation PSHx: Past Surgical History: [...] by mouth Daily. 06/19/19 Yes Connie Alvarez, CHOPPER GUN OPERATOR raNITIdine (ZANTAC) 150 mg tablet Take 150 [...] discussion with the patient/family, staff and providers. Agillic used to dic brewer information. Errors may [...] keaton ht be different from the original. [facility] Department of Emergency Medicine 08/11/2019 [...] Date Abdominal aortic aneurysm (AAA) without rupture ([facility]) 06/20/2019 Arthralgia ASHD (arteriosclerotic heart disease) Atherosclerosis Benign essential hypertension Bronchiectasis (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) Polycythemia vera ([facility]) 2016 Renal stone Sciatica Sinusitis Chronic Stroke ([facility]) Trigeminy Ventricular pre-excitation Past Surgical [...] file Gets together: Not on file Attends mandaen service: Not on file Active member of [...] CV/Resp: Negative for chest pain Negative for phtfwgwpx-jm-ilvfng Negative for cough GI: Negative for abdominal [...] hour ago while in the ER [facility] room. All other systems reviewed and negative [...] 2:51 AM I spoke with Dr. Reddy, Athletic Equipment Custodian. We discussed the patient's case and based [...] available (Using the electronic record system of [facility], with regard to the past medical/surgical history, previous medications, and all ergies). Laboratory Evaluation Results Procedure Component Value Ref Range Date/Time Digoxin Level [[id number]] (Abnormal) Collected: 08/11/19251 Order Status: Completed Updated: 08/11/19 05 Date of Last Dose -- Time of Last Dose -- Digoxin level 0.6 0.90 - 2.00 ng/mL Protime INR [[id number]] Collected: 08/11/19251 Order Status: Completed Specimen: Blood Updated: 08/11/19333 INR 1.1 PTT [[id number]] Collected: 08/11/19251 Order Status: Completed Specimen: Blood Updated: 08/11/19333 PTT 28 23 - 32 seconds B Type Natriuretic Peptide [[id number]] (Abnormal) Collected: 08/11/19252 Order Status: Completed Specimen: Blood Updated: 08/11/19326 BNP 122.18 0 - 100 pg/mL Comprehensive Metabolic Panel [[id number]] (Abnormal) Collected: 08/11/19251 Order Status: Completed Specimen: [...] U/L Estimated GFR 60 >60 mL/min/1.73m2 Lipase [[id number]] Collected: 08/11/19251 Order Status: Completed Specimen: Blood Updated: 08/11/19320 Lipase 34 12 - 53 U/L Magnesium [[id number]] Collected: 08/11/19251 Order Status: Completed Specimen: Blood Updated: 08/11/19320 Magnesium 1.9 1.7 - 2.4 mg/dL Troponin I [[id number]] Collected: 08/11/19251 Order Status: Completed Specimen: Blood Updated: 08/11/19320 Troponin I 0.028 0.00 - 0.04 ng/mL CBC with Differential [[id number]] (Abnormal) Collected: 08/11/19251 Order Status: Completed Specimen: [...] arteries are normal in caliber. The bilateral bilingual sales assistant are normal in caliber. CTA Neck: Aortic [...] INFORMATION: Ataxia and dizziness. COMPARISON: MRI brain [id number]. CT head 08/11/2019 PROCEDURE: Sagittal T1, axial [...] Disposition Condition Comment Admit Clinical impression: Ataxia [[id number]] Admitting provider: CELESTINE HOSPITALIST [[id number]] Expected patient class: Observation [104] Level of [...] chart has in part been created using [employer] Speech Recognition software. The c leiva has [...] Plan to d/c later today. lan of Rukhsana Hawkins RN - 08/12/2019 1:12 PM PST [...] might be different from t dora original. [facility] Physical Therapy OPIB Plan of Care Initial [...] lean to L-to clear R-LE Level of [place]: contact guard assist Assistive Device: gait belt, [...] LTG Status new at 08/11/2019 1300 LTG [place] Level modified independent at 08/11/2019 1300 LTG Assistive Device none at 08/11/2019 1300 LTG Distance (feet) 1000ft at 08/11/2019 1300 Stair Goal Most Recent Value LTG Status new at 08/11/2019 1300 LTG [place] Level modified independent at 08/11/2019 1300 LTG [...] [address] | | | | | | [place] [address] | | | | | | [phone] | | | | | | | [...] Testing | 65 - 99 mg/dL | [facility] | | | POC | performed at [facility];[address] | | LABORATORY | | | | [address];[place], [place] | | | | | | [address] | | | | + + + + + + + + | Specimen | + + | | + + + + + + + | Performing | Address | City/State/Zipcode | Phone Number | | Organization | | | | + + + + + | [facility] | [address] | [place] [address] | [phone] | + + + + + POC Glucose (08/12/2019 11:29 AM PST) + + + + + + | Component | Value | Ref Range | Performed | Pathologist | | | | | At | Signature | + + + + + + | Glucose, | 150 (H)Comment: Testing | 65 - 99 mg/dL | [facility] | | | POC | performed at [facility];[address] | | LABORATORY | | | | [address];[place] | | | | | | [address] | | | | + + + + + + + + | Specimen | + + | | + + + + + + + | Performing | Address | City/State/Zipcode | Phone Number | | Organization | | | | + + + + + | [facility] | [address] | [place] [address] | [phone] | + + + + + POC Glucose (08/12/2019 7:48 AM PST) + + + + + + | Component | Value | Ref Range | Performed | Pathologist | | | | | At | Signature | + + + + + + | Glucose, | 95Comment: Testing | 65 - 99 mg/dL | [facility] | | | POC | performed at [facility];[address] | | LABORATORY | | | | [address];[place], [place] | | | | | | [address] | | | | + + + + + + + + | Specimen | + + | | + + + + + + + | Performing | Address | City/State/Zipcode | Phone Number | | Organization | | | | + + + + + | [facility] | [address] | [place] [address] | [phone] | + + + + + Comprehensive [...] | | | | | performed at [facility], [address] | | | | | | [facility], | | | | | | [place] [address] | | | | + + + + + + + + | Specimen | + + | Blood | + + + + + + + | Performing | Address | City/State/Zipcode | Phone Number | | Organization | | | | + + + + + | [facility] | [address] | [place] [address] | [phone] | + + + + + CBC [...] 0.03Comment: Testing | 0.00 - 0.10 | [facility] | | | Absolute | performed at [facility], [address] | [address] | LABORATORY | | | | [address], | | | | | | [place] [address] | | | | + + + + + + + + | Specimen | + + | Blood | + + + + + + + | Performing | Address | City/State/Zipcode | Phone Number | | Organization | | | | + + + + + | [facility] | [address] | [place] [address] | [phone] | + + + + + POC [...] | | | POC | performed at [facility];[address] | | LABORATORY | | | | [address];[place], [place] | | | | | | [address] | | | | + + + + + + + + | Specimen | + + | | + + + + + + + | Performing | Address | City/State/Zipcode | Phone Number | | Organization | | | | + + + + + | [facility] | [address] | [place] [address] | [phone] | + + + + + Lipid [...] | | | Calculated | performed at [facility], [address] | | LABORATORY | | | | [address], | | | | | | [place] [address] | | | | + + + + + + + + | Specimen | + + | Blood | + + + + + + + | Performing | Address | City/State/Zipcode | Phone Number | | Organization | | | | + + + + + | [facility] | [address] | [place] [address] | [phone] | + + + + + CT [...] in caliber. The | | | bilateral bilingual sales assistant are normal in caliber. CTA Neck: Aortic [...] arteries are normal in caliber. The bilateral bilingual sales assistant are | | normal in caliber. | [...] IMAGING | | dizziness. COMPARISON: MRI brain [id number]. CT head 08/11/2019 | | | PROCEDURE: [...] | | COMPARISON: | | MRI brain [id number]. CT head 08/11/2019 | | | | [...] | | | | | ONLY, -COMPUTER ([id number]), | | | | | | assignment desk editor EVERARDO OSORIO | | | | | | ([id number]) on 08/12/2019 | | | | | [...] [address] | | | | | | [place] [address] | | | | + + + + + + + + | Specimen | + + | Blood | + + + + + + + | Performing | Address | City/State/Zipcode | Phone Number | | Organization | | | | + + + + + | [facility] | [address] | [place] [address] | [phone] | + + + + + Digoxin [...] | | | level | performed at [facility];[address] | ng/mL | LABORATORY | | | | [address];[place], [place] | | | | | | [address] | | | | + + + + + + + + | Specimen | + + | | + + + + + + + | Performing | Address | City/State/Zipcode | Phone Number | | Organization | | | | + + + + + | [facility] | [address] | [place] [address] | [phone] | + + + + + Magnesium (08/11/2019 2:52 AM PST) + + + + + + | Component | Value | Ref Range | Performed | Pathologist | | | | | At | Signature | + + + + + + | Magnesium | 1.9Comment: Testing | 1.7 - 2.4 mg/dL | [facility] | | | | performed at [facility];[address] | | LABORATORY | | | | [address];[place] | | | | | | [address] | | | | + + + + + + + + | Specimen | + + | Blood | + + + + + + + | Performing | Address | City/State/Zipcode | Phone Number | | Organization | | | | + + + + + | [facility] | [address] | [place] [address] | [phone] | + + + + + Troponin I (08/11/2019 2:52 AM PST) + + + + + + | Component | Value | Ref Range | Performed | Pathologist | | | | | At | Signature | + + + + + + | Troponin I | 0.028Comment: 0.04 | 0.00 - 0.04 | [facility] | | | | ng/mL or less [...] at | | | | | | [facility];[address] [facility] | | | | | | [address];[place] [address] | | | | + + + + + + + + | Specimen | + + | Blood | + + + + + + + | Performing | Address | City/State/Zipcode | Phone Number | | Organization | | | | + + + + + | [facility] | [address] | [place] [address] | [phone] | + + + + + PTT (08/11/2019 2:52 AM PST) + + + + + + | Component | Value | Ref Range | Performed | Pathologist | | | | | At | Signature | + + + + + + | PTT | 28Comment: Testing | 23 - 32 seconds | [facility] | | | | performed at [facility];[address] | | LABORATORY | | | | [address];[place] | | | | | | [address] | | | | + + + + + + + + | Specimen | + + | Blood | + + + + + + + | Performing | Address | City/State/Zipcode | Phone Number | | Organization | | | | + + + + + | [facility] | [address] | [place] [address] | [phone] | + + + + + Protime [...] | | | | | performed at [facility] | | | | | | [address];[place], [place] | | | | | | [address] | | | | + + + + + + + + | Specimen | + + | Blood | + + + + + + + | Performing | Address | City/State/Zipcode | Phone Number | | Organization | | | | + + + + + | [facility] | [address] | [place] [address] | [phone] | + + + + + Lipase (08/11/2019 2:52 AM PST) + + + + + + | Component | Value | Ref Range | Performed | Pathologist | | | | | At | Signature | + + + + + + | Lipase | 34Comment: Testing | 12 - 53 U/L | [facility] | | | | performed at [facility];[address] | | LABORATORY | | | | [address];[place] | | | | | | [address] | | | | + + + + + + + + | Specimen | + + | Blood | + + + + + + + | Performing | Address | City/State/Zipcode | Phone Number | | Organization | | | | + + + + + | [facility] | [address] | [place] [address] | [phone] | + + + + + Comprehensive [...] (L) | 10 - 65 U/L | [facility] | | | | | | LABORATORY | | + + + + + + | Estimated | 60 (L)Comment: GFR <60: | >60 | [facility] | | | GFR | CHRONIC KIDNEY [...] | | | | | performed at [facility] | | | | | | [facility];[place], [place] | | | | | | [address] | | | | + + + + + + + + | Specimen | + + | Blood | + + + + + + + | Performing | Address | City/State/Zipcode | Phone Number | | Organization | | | | + + + + + | [facility] | [address] | [place] [address] | [phone] | + + + + + CBC [...] | | | Absolute | performed at [facility];[address] | [address] | LABORATORY | | | | [facility];[place], [place] | | | | | | [address] | | | | + + + + + + + + | Specimen | + + | Blood | + + + + + + + | Performing | Address | City/State/Zipcode | Phone Number | | Organization | | | | + + + + + | [facility] | [address] | [place] [address] | [phone] | + + + + + ECG [...] | | | | | infarct ACUTE MT / | | | | | | [...] | | | | | ONLY, -COMPUTER (349), | | | | | | assignment desk editor Long Gonsalves | | | | [...] + + | Performing | Address | City[facility]State[facility] | Phone Number | | Organization [...] + + | Performing | Address | City/State[facility] | Phone Number | | Organization [...]
--- OUTSIDE RECORDS SUMMARY | ~2020-05-18 | XMS | Encounter Summary ---
Demographics + + + | Address | [address] | | | [place] [address] | + + + | Home Phone [...] | Author | [facility] | | | and [...] [place], [place] | | | | | [address] | | + + + + + | Alicia Mccarthy | ECON | [address] | | | | | [place] [address] | | + + + + + Care Team Providers + +------+ + | Care Silver Steward Name | Role | Phone | + [...] + + | 10/10/ | Telephone | [facility] | Cornel Sibley | Pre-Op (Called pt | | 2019 | | CENTER CV INTRA OP | MD [address] | regarding pre op | | | | [address] | [place] | instructions) | | | | [place], [place] | [place] [address] | | | | | [address] | [phone] | | | | | [phone] | | | +--------+ + + + [...] [address] | | | | | | [place] [address] | | | | | | [phone] | | | | | | | | +--------+---------+ + + + documented as of this encounter Visit Diagnoses Not on filedocumented in this encounter"
--- OUTSIDE RECORDS SUMMARY | ~2020-05-18 | XMS | Encounter Summary ---
Demographics + + + | Address | [address] | | | [place] [address] | + + + | Home Phone [...] + + + | Author | [facility] | | | and [place]ana | + + + | Organization | [facility] | | | and [place] | + + + | Address | Unknown | + + + | Phone | Unavailable | + + + Support + + + + + | Name | Relationship | Address | Phone | + + + + + | Tera Mccarthy | ECON | [place] | | | | | [address] | | + + + + + | Alicia Mccarthy | ECON | [address] | | | | | [place] [address] | | + + + + + Care Team Providers + +------+ + | Care Wool Dyer Name | Role | Phone | + [...] + + | 09/12/ | Office | [facility] | Shannan Yu DO | Coronary artery | | 2019 | Visit | CARDIOLOGY ELLEN | [address] | disease, angina | | | | 600 | [facility] [place] | presence | | | | [address] [place], [place] | [phone] | unspecified, | | | | [address] | | unspecified vessel | | | | [phone] | | or lesion type, | | | | | | unspecified whether | | | | | | [place] or | | | | | | [...] | | | | | graft of [place] | | | | | | heart [...] Yu DO - 09/12/2019 9:00 AM PST [facility] Cardiology Follow Up Note Reason [...] who added digoxin 125 mcg by des kign daily to his medical regimen for symptom [...] Abdominal aortic aneurysm (AAA) without rupture ([facility]) 06/20/2019 Arthralgia Atherosclerosis Bronchiectasis ([facility]) Mild , lower lobes CAD (coronary artery [...] sinus discharge PAD (peripheral artery disease) ([facility]) Polycythemia vera ([facility]) 2016 Renal stone on imaging Sciatica Sinusitis Chronic Stroke ([facility]) Trigeminy Past Surgical History: Procedure Laterality Date [...] file Gets together: Not on file Attends hinduism service: Not on file Active member of [...] leg [facility] [place] Last echo: 05/17/2019 ([facility]): EF 75%. LV normal in [...] MR. Mild TR. No pulmonary hypertension. Mild DE. No pericardial effusion. IVC not well visua lized. No mass, no clot VASCULAR PROCEDURES/ IMAGING Ct Angiogram Head Neck Acute Stroke:05/16/2019:[facility] w/ stroke: 1. The right [...] 3. No acute intracranial findings Brain MRI:05/17/2019: [facility] w/ stroke: Abnormal diffusion restriction is seen in the right centrum semiovale compatible with an area of acute infarction. CEA: 02/2010:Right and left carotid artery endarterectomy Last carotid ultrasound: 04/26/2019:( [facility]) Atheromatous changes in the carotid arteries maik [...] elevation to anterior leads. Rate 67 bpm, DE 226 ms, QRS 108 ms, QTC 388 ms EK: Normal sinus rhythm, incomplete bundle branch block, prior septal infarct . First-degree A-V block. Rate 80 bpm, DE 206 ms, QRS 106 ms, QTC 420 ms (personally rev iewed by me in the office today and when compared to EKG done in 2014 DE interval has decrea sed ) EK05/31/2018:Sinus rhythm with first-degree AV block, incomplete right bundle branch blo ck. Old septal infarct Rate 60 bpm, DE 230 ms, QRS 108 ms, QTC 390 ms him a tracing pers onally reviewed by me, similar morphology to July 2017 EKG, except for increased first-d egree block EK05/16/2019: Sinus rhythm with first-degree AV block, incomplete right bundle branch blo ck, LVH, old septal infarct w/ low voltage QRS leads II aVF. Rate 61 bpm, DE 226 ms, QRS 11 0 ms, QTC 410 ms, tracing personally reviewed by me EK05/23/2019: Sinus rhythm with first-degree AV block, stable incomplete right bundle bra nch block, LVH, old septal infarct. Rate 70 bpm, DE 230 ms, QRS 140 ms, QTC 410 ms, tracing personally reviewed by me, and similar morphology to previous EKG performed in April 2019, in May 2018 EK05/30/2019:( [facility]) Sinus rhythm with first-degree block, incomplete right bundle branch block, old inferior infarct. Rate 76 bpm, DE 222 ms, QRS 106 ms, QTC 398 ms tracing person ally reviewed by me. EK06/01/2019: ( [facility]) SVT, incomplete right bundle branch block. Rate 124 bpm, QRS 108 ms , QTC 451 ms, tracing personally reviewed by me EK06/19/2019: ( metoprolol XL 50 mg) sinus rhythm with first-degree AV block and septal i nfarct, incomplete right bundle branch block. Rate 64 bpm, DE 224 ms, QRS 108 ms, QTC 402 m s, tracing personally reviewed by me EK07/31/2019: (metoprolol XL 50 mg /Digoxin 125 mcg) Sinus rhythm with first-degree AV bl ock, incomplete right bundle branch block, previous anterior [place], rate 69 bpm, DE 240 ms, QRS 102 ms, QTC 390 [...] [address] | | | | | | [place] [address] | | | | | | [phone] | | | | | | | [...] whether | | | | | | [place] or | | | | | | [...] whether | | | | | | [place] or | | | | | | [...] or lesion | | type, unspecified whether [place] or transplanted heart - Primary | + + | Cerebrovascular accident (CVA), unspecified mechanism (HCC) | + + | Tachyarrhythmia Tachycardia, unspecified | + + | Coronary artery disease involving coronary bypass graft of [place] heart without angina | | pectoris | + + | Hypertension goal BP (blood pressure) < 140/80 Unspecified essential hypertension | + + | Dyslipidemia Other and unspecified hyperlipidemia | + + documented in this encounter
--- OUTSIDE RECORDS SUMMARY | ~2020-05-18 | XMS | Encounter Summary ---
Demographics + + + | Address | [address] | | | [place] [address] | + + + | Home Phone | | + + + | Preferred Language | Unknown | + + + | Marital Status | | + + + | Jainism Affiliation | 1041 | + + + | Race | White | + + + | Ethnic Group | Not or | + + + Author + + + | Author | [facility] | | | and [place] | + + + | Organization | [facility] | | | and [place] | + + + | Address | Unknown | + + + | Phone | Unavailable | + + + Support + + + + + | Name | Relationship | Address | Phone | + + + + + | Tera Mccarthy | ECON | [place], [place] | | | | | [address] | | + + + + + | Alicia Mccarthy | ECON | [address] | | | | | [place] [address] | | + + + + + Care Team Providers + +------+ + | Care Aviation Electronic Warfare Operator Name | Role | Phone | [...] | RN | | | | | [place], | | | | | | [place] [address] | | | | | | [phone] | | | +--------+ + + + [...] [address] | | | | | | [place] [address] | | | | | | [phone] | | | | | | | | +--------+---------+ + + + documented as of this encounter Visit Diagnoses Not on filedocumented in this encounter"
--- OUTSIDE RECORDS SUMMARY | ~2020-05-18 | XMS | Encounter Summary ---
Demographics + + + | Address | [address] | | | [place] [address] | + + + | Home Phone [...] Author | [facility] | | | and Danielana [...] [place], [place] | | | | | [address] | | + + + + + | Alicia Mccarthy | ECON | [address] | | | | | [place] [address] | | + + + + + Care Team Providers + +------+ + | Care Diesel Mechanic Apprentice Name | Role | Phone | + +------+ + PCP | Unavailable | + +------+ + Encounter Details +--------+ + + + + | Date | Type | Department | Care Team | Description | +--------+ + + + + | 07/02/ | Hospital | [facility] | Alexis Rai, | Coronary | | 2008 - | Encounter | [facility] | MD [address] | Atherosclerosis of | | | | [address] | Kenaitze Coronary | | 07/09/ | | [address] | [place] [address] | Artery | | 2008 | | [place], [place] | [phone] | | | | | [address] | | | | | | [phone] | | | +--------+ + + + [...] [address] | | | | | | [place] [address] | | | | | | [phone] | | | | | | | [...] Performed At | + + + | [id number] | | | Page 1 RADIOLOGY | | | INT 72472/ | | | I/P [facility] | | | CENTER NAME: [place] [address] | | | | | | | | | DATE OF : 1940 ORDER NUMBER: | | | [id number] EXAM DATE/TIME: 07/05/2009 05:00 A ORDERING PHYSICIAN: | | | ALEXIS RAI ORDER DETAIL: [id number] / / HDI EXAM DESCRIPTION: | | | XR CHEST 2 VIEW | | | | | | CHEST TWO VIEWS 07/05/2009 HISTORY 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 | | | COMPARISON Compared with 07/03/2009. FINDINGS The [place]Shanta | | | catheter has been removed [...] P | | | 09:10 A A YAMILE/faina/[id number]/ cc: ALEXIS | | | MD KYLE RAI MD NORMAN SITZ, | | | | | + + + + + | Procedure Note | + + | Alfred Landry Conversion - 05/21/2019 2:58 AM PDT | | [id number] Page 1 | | RADIOLOGY INT 35831/ | | I/P | | [facility] NAME: [place] | | [place] [address] | | | | DATE OF : 1940 | | | | ORDER NUMBER: [id number] | | EXAM DATE/TIME: 07/05/2009 05:00 A [...] | | | FINDINGS | | The [place] catheter has been removed leaving a short [...] | A | | A | | [facility]/dc/[id number]/ | | cc: ALEXIS RAI MD | | KYLE JOSEPH MD | | REECE ELIZONDO MD | + + XR Chest 1 Vw (07/03/2009 5:49 AM PDT) + + | Specimen | + + | | + + + + + | Narrative | Performed At | + + + | [id number] | | | Page 1 RADIOLOGY | | | INT 52297/ | | | I/P [facility] | | | CENTER [place] [address] | | | | | | | | | DATE OF : 1940 ORDER NUMBER: | | | [id number] EXAM DATE/TIME: 07/03/2009 05:00 A ORDERING PHYSICIAN: [...] significantly | | | changed. There is [place] catheter with its tip in the pulmonary [...] | P P P | | | JERAMY/octavio/[id number]/ cc: MD RICHARD SHAFFER, | | | DO REECE ELIZONDO MD | | + + + + + | Procedure Note | + + | Alfred Landry - 05/21/2019 2:58 AM PDT | | [id number] Page 1 | | RADIOLOGY INT 28134/ | | I/P | | [facility] NAME: [place] | | [place] [address] | | | | DATE OF : 1940 | | | | ORDER NUMBER: [id number] | | EXAM DATE/TIME: 07/03/2009 05:00 A [...] appear | | significantly changed. There is [place] catheter with its tip in the | [...] | P | | P | | [facility]/[id number]/ | | cc: ALEXIS RAI MD | | RICHARD PRINGLE DO | | REECE ELIZONDO MD | + + XR Chest 1 Vw (07/02/2009 8:28 PM PDT) + + | Specimen | + + | | + + + + + | Narrative | Performed At | + + + | [id number] | | | Page 1 RADIOLOGY | | | INT 96610/ | | | I/P [facility] | | | CENTER [place] [address] | | | | | | | | | DATE OF : 1940 ORDER NUMBER: | | | [id number] EXAM DATE/TIME: 07/02/2009 08:13 P ORDERING PHYSICIAN: [...] above the | | | mariusz. A [place] catheter has also been placed and its [...] 12:16 A P P | | | [facility]/[id number]/ cc: MD KYLE SHAFFER | | | MD REECE JOSEPH MD | | + + + + + | Procedure Note | + + | Alfred Landry Conversion - 05/21/2019 2:58 AM PDT | | [id number] Page 1 | | RADIOLOGY INT 14985/ | | I/P | | [facility] NAME: [place] | | [place] [address] | | | | DATE OF : 1940 | | | | ORDER NUMBER: [id number] | | EXAM DATE/TIME: 07/02/2009 08:13 P [...] cm above the | | mariusz. A [place] catheter has also been placed and its [...] | P | | P | | [facility]/[id number]/ | | cc: ALEXIS RAI MD | [...] that was | | | non-reportable in [employer] system. | | + + + + + | Procedure Note | + + | Alfred Landry Conversion - 05/21/2019 2:58 AM PDT See medical record for report. This is | | a converted record that was non-reportable in [employer] system. | + + documented in this encounter Visit Diagnoses + + | Diagnosis | + + | Coronary atherosclerosis of [place] coronary artery | + + documented in this encounter"
--- OUTSIDE RECORDS SUMMARY | ~2020-05-18 | XMS | Encounter Summary ---
Demographics + + + | Address | [address] | | | [place] [address] | + + + | Home Phone | | + + + | Preferred Language | Unknown | + + + | Marital Status | | + + + | Congregation Affiliation | 1041 | + + + | Race | White | + + + | Ethnic Group | Not or | + + + Author + + + | Author | [facility] | | | and [place] | + + + | Organization | [facility] | | | and [place] | + + + | Address | Unknown | + + + | Phone | Unavailable | + + + Support + + + + + | Name | Relationship | Address | Phone | + + + + + | Tera Mccarthy | ECON | [place], [place] | | | | | [address] | | + + + + + | Alicia Mccarthy | ECON | [address] | | | | | [place] [address] | | + + + + + Care Team Providers + +------+ + | Care Surgical Garment Assembly Supervisor Name | Role | Phone | [...] + | 09/05/ | Office | [facility] | Cornel Sibley | Supraventricular | | 2019 | Visit | CARDIOLOGY INLET | MD [address] | tachycardia (HCC) | | | | [address] | (Primary Dx); First | | | | [address] [place], [place] | [place] [address] | degree | | | | [address] | [phone] | atrioventricular | | | | [phone] | | block | +--------+---------+ + + [...] was seen by cardiology and an outpatient [facility] suggested episodes of a supraventricular tachycardia between [...] sinus discharge PAD (peripheral artery disease) ([facility]) Polycythemia vera ([facility]) 2016 Renal stone on imaging Sciatica Sinusitis Chronic Stroke ([facility]) Trigeminy Past Surgical History: Procedure Laterality Date [...] - ECG 12 lead; Standing - Void alterations sewer to OR; Standing - Skin prep; Standing - sodium chloride 0.9% (NS) infusion - Basic Metabolic Panel; Standing - CBC with Differential; Standing 1) Supraventricular tachycardia - Mr. Mccarthy has noted episodes of sudden increases in his heart rate on and off for the past several months. He wore a cardiac catheterization technologist through cardio logy and episodes of a [...] [place] | | | | | | [place] [address] | | | | | | [phone] | | | | | | | [...] | | | | | by [employer] [facility] Read Only, | | | | | | [employer] Romina ([id number]), | | | | | | desk editor Tate Lozano | | | | | | ([phone]) on 09/05/2019 | | | | | [...]
--- OUTSIDE RECORDS SUMMARY | ~2020-05-18 | XMS | Encounter Summary ---
Demographics + + + | Address | [address] | | | [place] [address] | + + + | Home Phone [...] Author + + + | Author | [facility] | | | and [place]ana | + + + | Organization | [facility] | | | and [place] | + + + | Address | Unknown | + + + | Phone | Unavailable | + + + Support + + + + + | Name | Relationship | Address | Phone | + + + + + | Tera Mccarthy | ECON | [place] | | | | | [address] | | + + + + + | Alicia Mccarthy | ECON | [address] | | | | | [place] [address] | | + + + + + Care Team Providers + +------+ + | Care Pm Technician Name | Role | Phone | [...] + + | 07/27/ | Office | [facility] | Lio Mendez, | Bronchiectasis (HCC) | | 2012 | Visit | PULMONARY [address] | MD [address] | (Primary Dx); | | | | [place], | [place], [place] | Chronic cough; Cough | | | | [place] [address] | [address] | variant asthma | | | | [phone] | | | +--------+---------+ + + + [...] a seasonal influenza vaccination sometime in the [facility] t several days. Past Medical History Past [...] [place] | | | | | | [place] [address] | | | | | | [phone] | | | | | | | | +--------+---------+ + + + documented as of this encounter Visit Diagnoses + + | Diagnosis | + + | Bronchiectasis (HCC) - Primary Bronchiectasis without acute exacerbation | + + | Chronic cough Cough | + + | Cough variant asthma | + + documented in this encounter
--- OUTSIDE RECORDS SUMMARY | ~2020-05-18 | XMS | Encounter Summary ---
Demographics + + + | Address | [address] | | | [place] [address] | + + + | Home Phone [...] | Author | [facility] | [...] [place] | | | | | [address] | | + + + + + | Alicia Mccarthy | ECON | [address] | | | | | [place] [address] | | + + + + + Care Team Providers + +------+ + | Care Room Service Waiter Name | Role | Phone | + [...] + + | 05/29/ | Emergency | [facility] | Lele Rapp, | Elevated troponin | | 2019 - | | [facility] | [address] | (Primary Dx); | | | | CARE FLOOR [address] | [place] [address] | Fatigue, unspecified | | 05/30/ | | [address] | [phone] | type; History of | | 2019 | | [place], [place] | | tachycardia; Recent | | | | [address] | Celestina Osorio MD | cerebrovascular | | | | [phone] | [address] | accident (CVA); | | | | | [place] [address] | Coronary artery | | | | | [phone] | disease involving | | | | | | [place] coronary | | | | | Mary Jo Moran MD | artery of [place] | | | | | [address] | heart without angina | | | | | [place] [address] | pectoris; History | | | | | [phone] | of CEA (carotid | | | [...] troponin Active Problems: Coronary artery disease involving [place] coronary artery of [place] heart Mixed hyperlipidemia History of CEA (carotid [...] 3. There is mild aortic regurgitation. 4. Ljta-em-ngnlaxpj mitral regurgitation is present. 5. The ascending aorta is mildly dilated, measuring up to 3.9 cm. 6. [facility] done [facility]/16[facility]18, no clinically [...] based on the results. Date Last Reviewed: 02/25/201619999183-8384 [employer] [address] [place], [place] [address]. All righ ts reserved. This information is [...] this encounter Progress Notes Rangel Loredo, [facility] - 05/29/2019 6:04 PM PDTRx Admission Medication History Note I have reviewed the medication history for appropriate doses obtained by: Pharmacy Medica tion History Underground Production Foreperson After reviewing the home medication list : I agree with the home medications list. Confirmed FURNACE PROCESS PLANT OPERATOR medications with patient and insurance fill history. Adjusted FURNACE PROCESS PLANT OPERATOR medications according to the civilian technician note below. - removed cholecalciferol. Patient stopped taking. - taking losartan 25 mg daily. Different from fill history for 50 mg daily. Please Review and Order Home Medications as necessary. Thanks RANGEL LOREDO, Nicole 05/29/2019 18:03 >> Christine Martínez CPhT 05/29/2019 17:25 Rx Medication History Underground Production Foreperson Note Patients Preferred Pharmacy has been updated [...] completed: Awaiting Pharmacist Final Review Christine Martínez, [facility] 05/29/2019 17:24 Electronically signed by Rangel Loredo [facility] at 05/29/2019 6:04 PM PDTdocumented in t his encounter H&P Notes Celestina [...] acute right mca cva and admitted to [facility] . Was discharged on plavix, statins, bp [...] Stroke ([facility]) Trigeminy Ventricular pre-excitation ACTIVE COMORBIDITIES: <COMORBIDITIES> PSH: [...] troponin Active Problems: Coronary artery disease involving [place] coronary artery of [place] heart Mixed hyperlipidemia History of CEA (carotid [...] Celestina Osorio MD 05/29/2019 documented in this [facility] ED Notes Concepcion Ortiz RN - [...] might be different from the original. 13:47 [facility] Department of Emergency Medicine History of Present [...] chest pain Resp: Positive for chronic mild brshmxonh-uw-qnpejz (stable) Negative for cough GI: Negative for [...] Daily. 05/23/19 Connie Varela Maria Esther wagoner, PATROL CONDUCTOR metoprolol succinate (TOPROL-XL) 25 mg 24 hr [...] Value Ref Range Date/Time Comprehensive Metabolic Panel [[id number]] (Abnormal) Collected: 05/29/19 1334 Order Status: Completed [...] Estimated GFR 51 >60 mL/min/1.73m2 Troponin I [[id number]] (Abnormal) Collected: 05/29/191333 Order Status: Completed Specimen: Blood Updated: 05/29/19 1425 Troponin T 0.086 0.00 - 0.04 ng/mL Magnesium [[id number]] Collected: 05/29/191333 Order Status: Completed Updated: 05/29/19 1425 Magnesium 1.9 1.7 - 2.4 mg/dL CBC with Differential [[id number]] (Abnormal) Collected: 05/29/191333 Order Status: Completed Specimen: [...] accident (CVA) 5. Coronary artery disease involving [place] coronary artery of [place] heart without angina pectoris 6. History of CEA (carotid endarterectomy) 7. History of CVA (cerebrovascular accident) 8. Hx of CABG 9. Hypertension goal BP (blood pressure) < 140/80 10. Mixed hyperlipidemia 11. Polycythemia vera (HCC) Disposition: ED Disposition ED Disposition Condition Comment Admit Attending: CELESTINA OSORIO [[id number]] Follow-up Information [facility]. Specialty: Emergency Medicine Contact information: [address] [place] [phone] Discharge Medications: Current Discharge Medication List [...] at the main entrance. Pt has a uscv-au-txkewk. Pt is indepe ndent with ambulation but [...] | | | | | [place] [address] | | | | | | [phone] | | | | | | | [...] Court, | | | | | | [place] [address] | | | | + + + + + + | CK-MB | 0Comment: Testing | 0 - 3 % | [facility] | | | | performed by [facility], | | LABORATORY | | | | [address], | | | | | | [place] [address] | | | | + + + + + + | CK-BB | 0Comment: Testing | 0 % | [facility] | | | | performed by [facility], | | LABORATORY | | | | [address], | | | | | | [place] [address] | | | | + + + + + + | CK, Total | 50Comment: Testing | 24 - 204 U/L | [facility] | | | | performed at [facility], | | LABORATORY | | | | [address], [address], | | | | | | [place] [address] | | | | + + + [...] | | | | | [place] [address] | | | | + + + + + + + + | Specimen | + + | Blood | + + + + + + + | Performing | Address | City/State/Zipcode | Phone Number | | Organization | | | | + + + + + | [facility] | [address] | [place] [address] | [phone] | + + + + + Troponin I (05/29/2019 11:59 PM PDT) + + + + + + | Component | Value | Ref Range | Performed | Pathologist | | | | | At | Signature | + + + + + + | Troponin I | 0.081 (H)Comment: 0.04 | 0.00 - 0.04 | [facility] | | | | ng/mL or less [...] at | | | | | | [facility];[address] [facility] | | | | | | Blvd;[place] [address] | | | | + + + + + + + + | Specimen | + + | Blood | + + + + + + + | Performing | Address | City/State/Zipcode | Phone Number | | Organization | | | | + + + + + | [facility] | [address] | [place] [address] | [phone] | + + + + + Troponin [...] at | | | | | | [facility];[address] | | | | | | [address];[place] [address] | | | | + + + + + + + + | Specimen | + + | Blood | + + + + + + + | Performing | Address | City/State/Zipcode | Phone Number | | Organization | | | | + + + + + | [facility] | [address] | [place] [address] | [phone] | + + + + + Magnesium (05/29/2019 1:34 PM PDT) + + + + + + | Component | Value | Ref Range | Performed | Pathologist | | | | | At | Signature | + + + + + + | Magnesium | 1.9Comment: Testing | 1.7 - 2.4 mg/dL | [facility] | | | | performed at [facility];[address] | | LABORATORY | | | | [address];[place] | | | | | | [address] | | | | + + + + + + + + | Specimen | + + | | + + + + + + + | Performing | Address | City/State/Zipcode | Phone Number | | Organization | | | | + + + + + | [facility] | [address] | [place] [address] | [phone] | + + + + + Troponin I (05/29/2019 1:34 PM PDT) + + + + + + | Component | Value | Ref Range | Performed | Pathologist | | | | | At | Signature | + + + + + + | Troponin I | 0.086 (H)Comment: 0.04 | 0.00 - 0.04 | [facility] | | | | ng/mL or less [...] at | | | | | | [facility];[address] [facility] | | | | | | vd;[place] [address] | | | | + + + + + + + + | Specimen | + + | Blood | + + + + + + + | Performing | Address | City/State/Zipcode | Phone Number | | Organization | | | | + + + + + | [facility] | [address] | [place] [address] | [phone] | + + + + + Comprehensive [...] 51 (L)Comment: GFR <60: | >60 | [facility] | | | GFR | CHRONIC KIDNEY [...] | | | | | performed at [facility];[address] | | | | | | [facility];[place], [place] | | | | | | [address] | | | | + + + + + + + + | Specimen | + + | Blood | + + + + + + + | Performing | Address | City/State/Zipcode | Phone Number | | Organization | | | | + + + + + | [facility] | [address] | [place] [address] | [phone] | + + + + + CBC [...] | | | Absolute | performed at [facility];[address] | [address] | LABORATORY | | | | [address];[place] | | | | | | [address] | | | | + + + + + + + + | Specimen | + + | Blood | + + + + + + + | Performing | Address | City/State/Zipcode | Phone Number | | Organization | | | | + + + + + | [facility] | [address] | [place] [address] | [phone] | + + + + + ECG [...] (500), | | | | | | video effects editor SHELBI GUERRA | | | | | | ([id number]) on 05/30/2019 | | | | | [...] + + | Coronary artery disease involving [place] coronary artery of [place] heart without | | angina pectoris | [...]
--- OUTSIDE RECORDS SUMMARY | ~2020-05-18 | XMS | Encounter Summary ---
Demographics + + + | Address | [address] | | | [place] [address] | + + + | Home Phone | | + + + | Preferred Language | Unknown | + + + | Marital Status | | + + + | Synagogue Affiliation | 1041 | + + + | Race | White | + + + | Ethnic Group | Not or | + + + Author + + + | Author | [facility] | | | and [place] | + + + | Organization | [facility] | | | and [place] | + + + | Address | Unknown | + + + | Phone | Unavailable | + + + Support + + + + + | Name | Relationship | Address | Phone | + + + + + | Tera Mccarthy | ECON | [place], [place] | | | | | [address] | | + + + + + | Ailcia Mccarthy | ECON | [address] | | | | | [place] [address] | | + + + + + Care Team Providers + +------+ + | Care Card Brusher Name | Role | Phone | + +------+ + | Matias Muñoz MD | PCP | | + +------+ + Encounter Details +--------+ + + + + | Date | Type | Department | Care Team | Description | +--------+ + + + + | 06/11/ | Orders Only | [facility] | Nasir Lim, | | | 2013 | | CARDIOLOGY STAR | [address] | | | | | [place] [address] | [place] [address] | | | | | [place], [place] | [phone] | | | | | [address] | | | | | | [phone] | | | +--------+ + + + [...] [address] | | | | | | [place] [address] | | | | | | [phone] | | | | | | | [...] VERT PS: | | | 28.19 cm/s Dye Range Tender: ARMIN Authenticated by: Nasir Lim | | | MD, FACC, FACP, FASNC Report Date/Time: -- 46_[id number]_[id number]:34:30 | | + + + + + | Procedure Note | + + | Frantz, Rad Conversion - 05/17/2019 10:09 PM PDT Patient Name: SIMON MCCARTHY | | of : 1940 Performing Physician: Nasir Lim MD, [facility], | | SHARITA DRAKE ------REPORT | | [...] AC: 55 | | degICA ED: 25.33 cm/Jmi ED: 20.93 cm/Jim ED: 21.03 cm/Jim ED: 24.51 cm/Jim | | ED: 7.56 cm/Jim ED: 8.20 cm/Jim PS: 68.78 cm/Jim PS: 58.08 cm/Jim PS: | | 52.25 cm/Jim PS: 67.58 cm/Jim PS: 29.02 cm/Jim PS: 39.19 cm/sSUBC PS: 85.41 | | cm/sSUBC PS: 121.77 cm/sVERT AC: 43 degVERT ED: 17.64 cm/sVERT ED: 10.46 | | cm/sVERT PS: 59.59 cm/sVERT PS: 28.19 cm/s Dye Range Tender: DHAuthenticated by: Nasir | | Carina MELENDEZ, FACC, FACP, FASNCReport Date/Time: -- [id number]:34:30 IMPRESSION: 1. | | The right internal [...] |VERT PS: 28.19 cm/s | | | |Dye Range Tender: ARMIN | |Authenticated by: Nasir Lim MD, FACC, FACP, FASSC | |Report Date/Time: -- 39_[id number]:34:30 | | | |IMPRESSION: | |1. The right internal carotid artery is widely patent with no evidence of re-stenosis. | + + documented in this encounter Visit Diagnoses Not on filedocumented in this encounter"
--- OUTSIDE RECORDS SUMMARY | ~2020-05-18 | XMS | Encounter Summary ---
Demographics + + + | Address | [address] | | | [place] [address] | + + + | Home Phone | | + + + | Preferred Language | Unknown | + + + | Marital Status | | + + + | Yarsani Affiliation | 1041 | + + + | Race | White | + + + | Ethnic Group | Not or | + + + Author + + + | Author | [facility] | | | and [place] | + + + | Organization | [facility] | | | and [place] | + + + | Address | Unknown | + + + | Phone | Unavailable | + + + Support + + + + + | Name | Relationship | Address | Phone | + + + + + | Tera Mccarthy | ECON | [place], [place] | | | | | [address] | | + + + + + | Alicia Mccarthy | ECON | [address] | | | | | [place] [address] | | + + + + + Care Team Providers + +------+ + | Care Lead Refinery Supervisor Name | Role | Phone | + +------+ + | Matias Muñoz MD | PCP | | + +------+ + Encounter Details +--------+ + + + + | Date | Type | Department | Care Team | Description | +--------+ + + + + | 05/16/ | Orders Only | [facility] | Connie Alvarez | | | 2017 | | [facility] | [address]EL [address] | | | | | [place] [address] | [place] [address] | | | | | [place], [place] | [place] [address] | | | | | [address] | [phone] | | | | | [phone] | | | +--------+ + + + [...] | | | | | | [place] [address] | | | | | | [phone] | | | | | | | [...] 4. There is mild aortic regurgitation. 5. Fnvc-ya-dwzjnlqa | | | mitral regurgitation is present. [...] mild aortic | | | regurgitation. 5. Mubv-wh-tfltfjzd mitral regurgitation is present. | | | [...] | | with nodular degeneration. Mitral Valve: Jumr-ov-dhqeezzl mitral | | | regurgitation is present. [...] MV A Carl: 1.11 m/s MV Dec [place]: 3.15 m/s2 | | | MV DecT: [...] TV A Carl: 0.41 m/s TV Dec [place]: | | | 2.10 m/s2 TV Dec Time: 202.82 ms TV E Carl: 0.42 m/s TV | | | E/A Ratio: 1.01 Plant Technician/Control Room Operator: JULIA Authenticated by: Nasir | | | Carina MELENDEZ, FACC, FACP, FASROYAL Report Date/Time: -- [id number]:12:23 | | | | | + + + + + | Procedure Note | + + | Alfred Landry Conversion - 05/17/2019 4:27 PM PDT Patient Name: SIMON MCCARTHY | | of : 1940 Performing Physician: Nasir Lim MD, [facility], | | FACP, | | [...] | | There is mild aortic regurgitation.5. Vvlh-ib-momectpo mitral regurgitation is present. | | FINDINGS--------ECG [...] thickened with nodular | | degeneration.Mitral Valve: Mrrw-ve-juhefcoy mitral regurgitation is present.Mitral | | Valve: [...] | | observed.Septum: No VSD observed. MEASUREMENTS HYA Planimetry: 2.05 | | [id number] Planimetry: 0.00 cm2/m2Ao asc: 4.02 cmAo sinus: [...] mlLAESV Index (A-L): 27.17 ml/m2LAAs A2C: 19.81 kj6TMZHV A-L A2C: 59.82 mlLAESV | | MOD A2C: 57.73 mlLALs A2C: 5.56 cmLAAs A4C: 17.82 md6BFBKT A-L A4C: 48.21 | | mlLAESV MOD A4C: 46.11 mlLALs A4C: 5.59 cmRAAs: 16.41 hb5ARINB A-L: 38.38 | | mlRAESV MOD: 36.95 mlRALs: 5.95 cmAo Diam: 3.97 cmAo/LA: 0.77LA Diam: 5.11 | | cmLA/Ao: 1.28TAPSE: 0.98 cmAV Env.Ti: 330.44 msAV maxP.56 mmHgAV meanPG: | | 2.36 mmHgAV Vmax: 1.05 m/Phillip Vmean: 0.71 m/Phillip VTI: 23.60 cmAVA Vmax: 3.41 | | cm2AVA (VTI): 3.44 dw8TGEF Vmax: 0.00 cm2/m2AVAI (VTI): 0.00 cm2/m2LVOT Env.Ti: | | 318.33 msLVOT maxP.85 mmHgLVOT meanP.14 mmHgLVSI Dopp: 41.10 ml/m2LVSV | | Dopp: 81.38 mlLVOT Vmax: 0.98 m/sLVOT Vmean: 0.69 m/sLVOT VTI: 22.17 cmMV A Carl: | | 1.11 m/sMV Dec [place]: 3.15 m/s2MV DecT: 292.73 msMV E Carl: 0.92 m/sMV E/A | | Ratio: 0.82E/E' Av.94E' Av.03 m/sE/E' Lat: 19.14E/E' Sept: 35.79E' | | Lat: 0.04 m/sE' Sept: 0.02 m/sPV maxP.64 mmHgPV Vmax: 0.81 m/sRV S': 0.03 | | m/sTR maxP.27 mmHgTR Vmax: 2.13 m/sTV A Carl: 0.41 m/sTV Dec [place]: 2.10 | | m/s2TV Dec Time: 202.82 msTV E Carl: 0.42 m/sTV E/A Ratio: 1.01 Plant Technician/Control Room Operator: | | RKAuthenticated by: Nasir Lim MD, FACC, FACP, FASNCReport Date/Time: -- | | [id number]:12:23 IMPRESSION: 1. Overall left ventricular systolic function is | | normal with, an EF between 60 - 65 %.2. Moderate asymmetric septal hypertrophy with | | septal thickness 16 - 19 mm.3. The diastolic filling pattern indicates impaired | | relaxation consistent with mild dysfunction (Grade I).4. There is mild aortic | | regurgitation.5. Dyui-hi-axyokhwy mitral regurgitation is present. | |Ao sinus: [...] A Carl: 1.11 m/s | |MV Dec [place]: 3.15 m/s2 | |MV DecT: 292.73 ms [...] A Carl: 0.41 m/s | |TV Dec [place]: 2.10 m/s2 | |TV Dec Time: 202.82 ms | |TV E Carl: 0.42 m/s | |TV E/A Ratio: 1.01 | | | |Plant Technician/Control Room Operator: RK | |Authenticated by: Nasir Lim MD, FACC, FACP, [facility] | |Report Date/Time: -- 70_[id number]:12:23 | | | |IMPRESSION: | |1. Overall left ventricular systolic function is normal with, an EF between 60 - 65 %. | |2. Moderate asymmetric septal hypertrophy with septal thickness 16 - 19 mm. | |3. The diastolic filling pattern indicates impaired relaxation consistent with mild dysfunc tion (Grade I). | |4. There is mild aortic regurgitation. | |5. Tkpi-jr-fskstsqd mitral regurgitation is present. | + + documented in this encounter Visit Diagnoses Not on filedocumented in this encounter"
--- OUTSIDE RECORDS SUMMARY | ~2020-05-18 | XMS | Encounter Summary ---
Demographics + + + | Address | [address] | | | [place] [address] | + + + | Home Phone [...] [facility] | [...] [place] | | | | | [address] | | + + + + + | Alicia Mccarthy | ECON | [address] | | | | | [place] [address] | | + + + + + Care Team Providers + +------+ + | Care Automobile Rental Agent Name | Role | Phone | + [...] | | | jamal | | DR DUHRAM | | | | | ([facility]) | | [place] | | | | | Procedures | | [address] Phone: | | | | | CV EP | | [phone] | | | | | ABLATION SVT | | Fax: | | | | | | | [phone] | +--------+--------+ + + + + Encounter Details +--------+---------+ + + + | Date | Type | Department | Care Team | Description | +--------+---------+ + + + | 10/11/ | Surgery | [facility] | Cornel Bass | CV EP ABLATION SVT | | 2020 | | [facility] | MD Vik[address] | | | | | LAB [address] | [address] | | | | | [place], [place] | [place] [address] | | | | | [address] | [phone] | | | | | [phone] | | | +--------+---------+ + + + [...] T heseinclude walking, climbing stairs, and doing manager special events. Don't do any heavy physical activity for [...] longer to go away. Date Last Reviewed: 06/26/201619993652-6334 [employer]. [address] [place] [address], [place] [address]. All righ ts reserved. This information is [...] You can't be awakened Date Last Reviewed: 07/13/201619996468-5045 [employer]. [address] [place] [address]. All righ ts reserved. This information is [...] Marcelo Camacho MD 25 mcg at 10/12/19 07 [...] the past several months. He wore a monitoring analyst through card iology and episodes of a [...] with the findings and plan of the [facility] practice provider/house staff with further assessment and [...] Abdominal aortic aneurysm (AAA) without rupture ([facility]) 06/20/2019 Arthralgia Atherosclerosis Bronchiectasis ([facility]) Mild , lower lobes CAD [...] sinus discharge PAD (peripheral artery disease) ([facility]) Polycythemia vera ([facility]) 2016 Renal stone on imaging Sciatica Sinusitis Chronic Stroke ([facility]) Trigeminy Past Surgical History: Procedure [...] - ECG 12 lead; Standing - 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 Mccarthy has noted episodes of sudden increases in his heart rate on and off for the past several months. He wore a monitoring analyst through cardio [employer] and episodes of a supraventricular tachycardia between [...] with the findings and plan of the [facility] practice provider/house staff with further assessment and [...] 25 mcg given per MAR lan of [facility] - Luz Esteban RN - 10/11/2019 6:06 [...] Cornel Hoang MD - 10/11/2019 4:12 PM [facility] OPERATIVE REPORT CORNEL BASS MD Patient: SIMON MCCARTHY Admitting: CORNEL BASS MR #: [id number] LOC: PT TYPE: Adm Date: 10/11/2019 : [...] 1. Right superficial femoral vein, a short 8-Mozambican sheath exchanged for an 8-Mozambican SEPT sheath for quadripolar catheter placed in the high right atrium, exchanged for a 4 mm Blazer II large curved HTD ablation catheter in the right atrium/right ventricle, a short 7-Mozambican sheath for a deflectable decapolar catheter placed in the coronary sinus. 2. Left superficial femoral vein, a short 6-Mozambican sheath for quadripolar catheter placed in the His position and a short 7-Mozambican sheath for quadripolar catheter placed on the [...] episodes of palpitations who wear an outpatient monitoring analyst and runs of a poss ible supraventricular [...] n catheter was then positioned through the 8-Mozambican sheath under fluoroscopic guidance in th e [...] Transcribed on 10/11/2019 21:48:25 by radha job# [id number] Confirmation #: [id number] signed by Cornel Bass MD at 10/12/2019 [...] 3) continue outpatient medications 4) telemetry Dictated: [id number] documented in this encounter Plan of Treatment +--------+---------+ + + + | Date | Type | Specialty | Care Team | Description | +--------+---------+ + + + | 06/25/ | Office | Cardiology | Kim Connie | | | 2019 | Visit | | [address] | | | | | | [place] [address] | | | | | | [place] [address] | | | | | | [phone] | | | | | | | [...] | | | Absolute | performed at [facility];[address] | [address] | LABORATORY | | | | [address];[place], [place] | | | | | | [address] | | | | + + + + + + + + | Specimen | + + | Blood | + + + + + + + | Performing | Address | City/State/Zipcode | Phone Number | | Organization | | | | + + + + + | [facility] | [address] | [place] [address] | [phone] | + + + + + Basic [...] | | | | | performed at [facility] | | | | | | [facility], [place] | | | | | | [address] | | | | + + + + + + + + | Specimen | + + | Blood | + + + + + + + | Performing | Address | City/State/Zipcode | Phone Number | | Organization | | | | + + + + + | [facility] | [address] | [place] [address] | [phone] | + + + + + documented [...] ONCE PRN, Wheezing, | | | Starting [facility] 10/11/19 at 1620, | | | For [...] | | | | | | longer, ympyyt-ogy-wfbvx use of | | | | | [...] PRN, Nausea, Vomiting, | | | Starting [facility] 10/11/19 at 1620, | | | Post-op/Phase II | | + +---+ | | | + +---+ documented in this encounter
--- OUTSIDE RECORDS SUMMARY | ~2020-05-18 | XMS | Encounter Summary ---
Demographics + + + | Address | [address] | | | [place] [address] | + + + | Home Phone | | + + + | Preferred Language | Unknown | + + + | Marital Status | | + + + | Episcopalian Affiliation | 1041 | + + + | Race | White | + + + | Ethnic Group | Not or | + + + Author + + + | Author | [facility] | | | and [place] | + + + | Organization | [facility] | | | and [place] | + + + | Address | Unknown | + + + | Phone | Unavailable | + + + Support + + + + + | Name | Relationship | Address | Phone | + + + + + | Tera Mccarthy | ECON | [place], [place] | | | | | [address] | | + + + + + | Alicia Mccarthy | ECON | [address] | | | | | [place] [address] | | + + + + + Care Team Providers + +------+ + | Care Keyboard Specialist Name | Role | Phone | + +------+ + PCP | Unavailable | + +------+ + Encounter Details +--------+ + + + + | Date | Type | Department | Care Team | Description | +--------+ + + + + | 02/27/ | Hospital | [facility] | Alexis Rai, | Carotid Art Occ w/o | | 2009 - | Encounter | MEDICAL CENTER | [address] | [facility] | | | | INTENSIVE CARE UNIT | [address] | | | 02/28/ | | [address] | [place] [address] | | | 2009 | | [place], [place] | [phone] | | | | | [address] | | | | | | [phone] | | | +--------+ + + + [...] [address] | | | | | | [place] [address] | | | | | | [phone] | | | | | | | [...] Performed At | + + + | [facility] [address] Ph: | | | Patient Name: ROBBIE MCCARTHY Date of : | | | 1940 Medical Record: [id number] Account: [id number] | | | Exam Date/Time: 02/24/2010 13:29 [...] - 05/20/2019 4:20 PM PDT | | [facility] | | [facility] [address] | | | | | | Patient Name: ROBBIE MCCARTHY | | Date of : 1940 | | Medical Record: [id number] | | Account: [id number] | | | | | | Exam [...]
--- OUTSIDE RECORDS SUMMARY | ~2020-05-18 | XMS | Encounter Summary ---
Demographics + + + | Address | [address] | | | [place] [address] | + + + | Home Phone [...] + | Author | [facility] | | | and [...] [place], [place] | | | | | [address] | | + + + + + | Alicia Mccarthy | ECON | [address] | | | | | [place] [address] | | + + + + + Care Team Providers + +------+ + | Care Horizontal Resaw Operator Name | Role | Phone | + +------+ + PCP | Unavailable | + +------+ + Encounter Details +--------+ + + + + | Date | Type | Department | Care Team | Description | +--------+ + + + + | 07/22/ | Hospital | [facility] | Alexis Rai, | Cough | | 2008 | Encounter | CONVERSION DE[address] | MD [address] | | | | | [address] | [facility] [address] | | | | | [place], [place] | [place] [address] | | | | | [address] | [phone] | | | | | [phone] | | | +--------+ + + + [...] [address] | | | | | | [place] [address] | | | | | | [phone] | | | | | | | [...] Performed At | + + + | [id number] | | | Page 1 RADIOLOGY | | | / | | | O/P [facility] | | | NAME: [place] [address] | | | | | | | | | DATE OF : 1940 ORDER NUMBER: [id number] | | | EXAM DATE/TIME: 07/22/2009 12:10 [...] A P | | | 04:[address] [facility]/[id number]/ cc: MD KYLE SHAFFER | | | MD REECE JOSEPH MD | | + + + + + | Procedure Note | + + | Alfred Landry Conversion - 05/21/2019 2:58 AM PDT | | [id number] Page 1 | | RADIOLOGY / | | O/P | | [facility] NAME: MCCARTHYSIMON | | [place] [address] | | | | DATE OF : 1940 | | | | ORDER NUMBER: [id number] | | EXAM DATE/TIME: 07/22/2009 12:10 P [...] | P | | A | | [facility]/[id number]/ | | cc: ALEXIS RAI MD | | KYLE JOSEPH MD | | REECE ELIZONDO MD | + + documented in this encounter Visit Diagnoses + + | Diagnosis | + + | Cough | + + documented in this encounter"
--- OUTSIDE RECORDS SUMMARY | ~2020-05-18 | XMS | Encounter Summary ---
Demographics + + + | Address | [address] | | | [place] [address] | + + + | Home Phone [...] | [facility] | | | and [...] [place] | | | | | [address] | | + + + + + | Alicia Mccarthy | ECON | [address] | | | | | [place] [address] | | + + + + + Care Team Providers + +------+ + | Care Glue Reel Operator Name | Role | Phone | [...] + + | 05/30/ | Hospital | [facility] | Josesito Brown, | Paroxysmal | | 2019 - | Encounter | [facility] | [address] | tachycardia (HCC) | | | | CARE FLOOR [address] | [place] [address] | suspected based on | | 06/01/ | | [address] | [phone] | history (Primary | | 2019 | | [place], [place] | | Dx); Acute renal | | | | [address] | Patricia Stanley, | injury (HCC); | | | | [phone] | [address] | Tachyarrhythmia; | | | | | [place] [address] | Coronary artery | | | | | [phone] | disease involving | | | | | | coronary bypass | | | | | Mary Jo Moran MD | graft of pe[place] | | | | | [address] | heart without angina | | | | | [place] [address] | pectoris | | | | | [phone] | | | | | | | | | | | | Tate Montesinos MD | | | | | | [address] | | | | | | [place] [address] | | | | | | [phone] | | | | | | | [...] MD Treatment Team: Mary Jo Moran MD; hSannan Yu DO Discharge Diagnoses: Principal Problem: SVT [...] documented as of this encounter Progress Notes Socorro Wan RN - 06/01/2019 6:08 PM PDTDischarge [...] might be different from t dora original. Located Within [facility] Service: Hospitalist Admission History & Physical Date [...] of carotid artery PAD (peripheral artery disease) ([facility]) Polycythemia vera ([facility]) 2016 Renal stone Sciatica Sinusitis Chronic Stroke ([facility]) Trigeminy Ventricular pre-excitation PAST SURGICAL [...] Daily. 05/23/19 Connie Varela Maria Esther wagoner, HANDKERCHIEF SAMPLE CLERK metoprolol succinate (TOPROL-XL) 25 mg 24 hr [...] Color, UA YELLOW Clarity, UA CLEAR Specific [place], Urine 1.025 1.002 - 1.030 Leukocyte esterase, [...] Procedure Component Value Units Date/Time Culture, Blood [[id number]] Collected: 05/30/194 Order Status: Sent Lab Status: In process Updated: 05/30/19 776 Specimen: Peripheral Blood Culture, Blood [[id number]] Collected: 05/30/197 Order Status: Sent Lab Status: [...] now follow-up with MICHAEL Jacobson -Please contact cap cutter in the morning, patient will prefer to [...] DVT Code Status: Full Code Dictation software, [employer], used which may contain errors for similar sounding words even a fter reviewed. Personal communication requested for any clarification Patricia Stanley DO 05/31/2019 3:33 documented in this encou nter Consult Notes Shannan Yu DO - 06/01/2019 2:24 PM PDTAssociated Order(s): PROVIDER TO PROVIDER CONSUL T Located Within [facility] Service: Cardiology Initial Consult Note Name of Respiratory Medicine Physician: Shannan Yu DO Reason for Consultation: SVT [...] of carotid artery PAD (peripheral artery disease) ([facility]) Polycythemia vera ([facility]) 2016 Renal stone Sciatica Sinusitis Chronic Stroke ([facility]) Trigeminy Ventricular pre-excitation Past Surgical [...] MD - 0 05/31/2019 7:22 PM PDT Located Within [facility] Service: Urology Initial Consult Note Reason for [...] 2016 Renal stone Sciatica Sinusitis Chronic Stroke ([facility]) Trigeminy Ventricular pre-excitation Past Surgical [...] pretation. Confirmed by MUSE READ ONLY, -COMPUTER ([id number]), editorial writer SHELBI GUERRA ([id number]) on 05/31/2019 5:0 0:15 AM Lactic Acid [...] Color, UA YELLOW Clarity, UA CLEAR Specific [place], Urine 1.025 1.002 - 1.030 Leukocyte esterase, [...] asthma Hay fever Coronary artery disease involving [place] coronary artery of [place] heart Nasal and sinus discharge Sciatica Mixed [...] Brown MD - 05/30/2019 9:33 PM PDT Located Within [facility] Department of Emergency Medicine 21:39 History of [...] ambulation we will do ambulatory trial with inside wireman to see if there is a recurrence of tachycar carline. 11:28 PM Labs resulted, the patient's troponin is decreasing and he is developing worsening kidney function. 11:36 PM Discussed the patient with Lizeth, hospitalist who accepts the patient for admissio n. Will monitor the patient until transferred into hospitalist services. Records Reviewed Nursing note, medical history (Using the electronic record system of [facility]) Laboratory Evaluation Results Procedure Component Value Ref Range Date/Time Culture, Blood [[id number]] Collected: 05/30/192236 Order Status: Sent Specimen: Peripheral Blood Updated: 05/31/19 0138 Drugs Of ABuse Screen, Urine (H) [[id number]] Collected: 05/31/1918 Order Status: Completed Specimen: Urine Updated: 05/31/19 0040 Amp/Methamphetamine, Screen, Urine NEGATIVE NEG Barbiturates Screen, Urine NEGATIVE NEG Benzodiazepines Screen, Urine NEGATIVE NEG Cocaine Metabolites, Ur NEGATIVE NEG Methadone Screen, Urine NEGATIVE NEG Opiates Screen, Urine NEGATIVE NEG Phencyclidine Screen, Urine NEGATIVE NEG Tetrahydrocannabinol(THC) NEGATIVE NEG Urinalysis With Microscopic [[id number]] Collected: 05/31/1918 Order Status: Completed Specimen: Urine Updated: 05/31/19 0038 Color, UA YELLOW Clarity, UA CLEAR Specific [place], Urine 1.025 1.002 - 1.030 Leukocyte esterase, [...] 1+ HYALINE CASTS UA 3-5 Culture, Blood [[id number]] Collected: 05/30/192243 Order Status: Sent Specimen: Peripheral Blood Updated: 05/30/192346 Lactic Acid [[id number]] Collected: 05/30/192243 Order Status: Completed Specimen: Blood Updated: 05/30/192316 Lactate, Serum 1.2 0.4 - 2.0 mmol/L Comprehensive Metabolic Panel [[id number]] (Abnormal) Collected: 05/30/192247 Order Status: Completed Specimen: [...] Estimated GFR 40 >60 mL/min/1.73m2 Troponin I [[id number]] (Abnormal) Collected: 05/30/192247 Order Status: Completed Specimen: Blood Updated: 05/30/192313 Troponin T 0.052 0.00 - 0.04 ng/mL CBC with Differential [[id number]] (Abnormal) Collected: 05/30/192247 Order Status: Completed Specimen: [...] Comment Admit Clinical impression: Paroxysmal tachycardia (HCC) [902427] Clinical impression: Acute renal injury (HCC) [265980] Admitting provider: CELESTINE HOSPITALIST [[id number]] Expected patient class: Observation [104] Level of service: Medical Procedures This document has been prepared with a voice recognition system. The possibility of "sound alike" fitness studies teacher errors, and additions or deletions may occur. [...] Intervention: Provide Person-Centered Care Flowsheets (Taken 05/31/2019 5626) Trust Relationship/Rapport: care explained;choices provided;emotional support provided;empa [...] was ready, as primary RN is at [facility]. docume nted in this encounter Plan of Treatment +--------+---------+ + + + | Date | Type | Specialty | Care Team | Description | +--------+---------+ + + + | 06/25/ | Office | Cardiology | Connie Alvarez | | | 2019 | Visit | | MICHAEL Varela [address] | | | | | | [address] | | | | | | [place] [address] | | | | | | [phone] | | | | | | | [...] | | | | | performed at [facility];[address] | | | | | | [facility];[place], [place] | | | | | | [address] | | | | + + + + + + + + | Specimen | + + | Blood | + + + + + + + | Performing | Address | City/State/Zipcode | Phone Number | | Organization | | | | + + + + + | [facility] | [address] | [place] [address] | [phone] | + + + + + B Type Natriuretic Peptide (06/01/2019 8:47 AM PDT) + + + + + + | Component | Value | Ref Range | Performed | Pathologist | | | | | At | Signature | + + + + + + | BNP | 98.24Comment: Testing | 0 - 100 pg/mL | [facility] | | | | performed at [facility];[address] | | LABORATORY | | | | [facility];[place], [place] | | | | | | [address] | | | | + + + + + + + + | Specimen | + + | Blood | + + + + + + + | Performing | Address | City/State/Zipcode | Phone Number | | Organization | | | | + + + + + | [facility] | [address] | [place] [address] | [phone] | + + + + + XR [...] + + | Performing | Address | City/State/[facility] | Phone Number | | [...] (H)Comment: 0.04 | 0.00 - 0.04 | [facility] | | | | ng/mL or [...] at | | | | | | [facility];[address] [facility] | | | | | | Bl;[place] [address] | | | | + + + + + + + + | Specimen | + + | Blood | + + + + + + + | Performing | Address | City/State/Zipcode | Phone Number | | Organization | | | | + + + + + | [facility] | [address] | [place] [address] | [phone] | + + + + + [place] [...] at | | | | | | [facility];[address] [facility] | | | | | | Blvd;[place] [address] | | | | + + + + + + + + | Specimen | + + | Blood | + + + + + + + | Performing | Address | City/State/Zipcode | Phone Number | | Organization | | | | + + + + + | [facility] | [address] | [place] [address] | [phone] | + + + + + Uric Acid (05/31/2019 3:50 AM PDT) + + + + + + | Component | Value | Ref Range | Performed | Pathologist | | | | | At | Signature | + + + + + + | Uric Acid | 5.1Comment: Testing | 3.2 - 8.6 mg/dL | [facility] | | | | performed at [facility], [address] | | LABORATORY | | | | [address], | | | | | | [place] [address] | | | | + + + + + + + + | Specimen | + + | Blood | + + + + + + + | Performing | Address | City/State/Zipcode | Phone Number | | Organization | | | | + + + + + | [facility] | [address] | [place] [address] | [phone] | + + + + + B [...] TITO | | | | performed at [facility];[address] | | LABORATORY | | | | [address];[place] | | | | | | [address] | | | | + + + + + + + + | Specimen | + + | Blood | + + + + + + + | Performing | Address | City/State/Zipcode | Phone Number | | Organization | | | | + + + + + | [facility] | [address] [facility] | [place] [address] | [phone] | + + + + + Creatine [...] [address], | | | | | | [place] [address] | | | | + + + + + + | CK-MB | 0Comment: Testing | 0 - 3 % | [facility] | | | | performed by [facility], | | LABORATORY | | | | [address], | | | | | | [place] [address] | | | | + + + + + + | CK-BB | 0Comment: Testing | 0 % | [facility] | | | | performed by [facility], | | LABORATORY | | | | [address], | | | | | | [place] [address] | | | | + + + + + + | CK, Total | 39Comment: Testing | 24 - 204 U/L | [facility] | | | | performed at [facility], | | LABORATORY | | | | [address], | | | | | | [facility] [address] | | | | + + + + + + | CK-MACRO | 0 | Not Observed % | [facility] | | | TYPE 1 | | | LABORATORY | | + + + + + + | CK-MACRO | 0Comment: Testing | Not Observed % | [facility] | | | TYPE II | performed by [facility], | | LABORATORY | | | | [address], | | | | | | [facility] [address] | | | | + + + + + + + + | Specimen | + + | Blood | + + + + + + + | Performing | Address | City/State/Zipcode | Phone Number | | Organization | | | | + + + + + | [facility] | [address] | [place] [address] | [phone] | + + + + + Lipid [...] | | | Calculated | performed at [facility], [address] | | LABORATORY | | | | [address], | | | | | | [place] [address] | | | | + + + + + + + + | Specimen | + + | Blood | + + + + + + + | Performing | Address | City/State/Zipcode | Phone Number | | Organization | | | | + + + + + | [facility] | [address] | [place] [address] | [phone] | + + + + + Troponin [...] at | | | | | | [facility];[address] [facility] | | | | | | vd;[place] [address] | | | | + + + + + + + + | Specimen | + + | Blood | + + + + + + + | Performing | Address | City/State/Zipcode | Phone Number | | Organization | | | | + + + + + | [facility] | [address] | [place] [address] | [phone] | + + + + + Drugs [...] | | | | | performed at [facility] | | | | | | [facility];[place], [place] | | | | | | [address] | | | | + + + + + + + + | Specimen | + + | Urine | + + + + + + + | Performing | Address | City/State/Zipcode | Phone Number | | Organization | | | | + + + + + | [facility] | [address] | [place] [address] | [phone] | + + + + + Urinalysis [...] - 1.030 | [facility] | | | [place], | | | LABORATORY | | | [...] | | CASTS UA | performed at [facility];[address] | | LABORATORY | | | | [address];[place], [place] | | | | | | [address] | | | | + + + + + + + + | Specimen | + + | Urine | + + + + + + + | Performing | Address | City/State/Zipcode | Phone Number | | Organization | | | | + + + + + | [facility] | [address] [facility] | [place] [address] | [phone] | + + + + + Troponin I (05/30/2019 10:48 PM PDT) + + + + + + | Component | Value | Ref Range | Performed | Pathologist | | | | | At | Signature | + + + + + + | Troponin I | 0.052 (H)Comment: 0.04 | 0.00 - 0.04 | [facility] | | | | ng/mL or [...] at | | | | | | [facility];[address] | | | | | | [facility];[place] [address] | | | | + + + + + + + + | Specimen | + + | Blood | + + + + + + + | Performing | Address | City/State/Zipcode | Phone Number | | Organization | | | | + + + + + | [facility] | [address] | [place] [address] | [phone] | + + + + + Comprehensive [...] | | | | | | MDRD IDMO traceable | | | | | | equation.Testing | | | | | | performed at [facility];[address] | | | | | | [facility];[place], [place] | | | | | | [address] | | | | + + + + + + + + | Specimen | + + | Blood | + + + + + + + | Performing | Address | City/State/Zipcode | Phone Number | | Organization | | | | + + + + + | [facility] | [address] | [place] [address] | [phone] | + + + + + CBC [...] | | | Absolute | performed at [facility];[address] | K[address] | LABORATORY | | | | [address];[place], [place] | | | | | | [address] | | | | + + + + + + + + | Specimen | + + | Blood | + + + + + + + | Performing | Address | City/State/Zipcode | Phone Number | | Organization | | | | + + + + + | [facility] | [address] | [place] [address] | [phone] | + + + + + Lactic Acid (05/30/2019 10:44 PM PDT) + + + + + + | Component | Value | Ref Range | Performed | Pathologist | | | | | At | Signature | + + + + + + | Lactate, | 1.2Comment: Testing | 0.4 - 2.0 | [facility] | | | Serum | performed at [facility];[address] | mmol/L | LABORATORY | | | | [address];[place] | | | | | | [address] | | | | + + + + + + + + | Specimen | + + | Blood | + + + + + + + | Performing | Address | City/State/Zipcode | Phone Number | | Organization | | | | + + + + + | [facility] | [address] | [place] [address] | [phone] | + + + + + Culture, [...] [place] | | | | | | [id number]: Testing | | | | | | performed at [facility], [address] | | | | | | [address], | | | | | | [place] [address] | | | | + + + [...] [facility] | [address] | [place] [address] | [phone] | + + + + + Culture, [...] | | [facility] | | | | [facility], [address] | | LABORATORY | | | | [place], [place], [place] | | | | | | [address]Cxpaiur: Testing | | | | | | performed at [facility], [address] | | | | | | [address], | | | | | | [place] [address] | | | | + + + + + + + + | Specimen | + + | Blood - Peripheral | | blood specimen | | (specimen) | + + + + + + + | Performing | Address | City/State/Zipcode | Phone Number | | Organization | | | | + + + + + | [facility] | [address] | [place] [address] | [phone] | + + + + + XR [...] | | | | | ONLY, -COMPUTER ([id number]), | | | | | | editorial writer SHELBI GUERRA | | | | | | ([id number]) on 05/31/2019 | | | | | [...] artery disease involving coronary bypass graft of [place] heart without angina | | pectoris | [...] | | | | | dose on [facility] 05/31/19 at 0900 | | AM [...] | | | | | dose on [facility] 05/31/19 at 0230 | | | [...]
--- OUTSIDE RECORDS SUMMARY | ~2020-05-18 | XMS | Encounter Summary ---
Demographics + + + | Address | [address] | | | [place] [address] | + + + | Home Phone [...] | Author | [facility] | | | and [...] [place] | | | | | [address] | | + + + + + | Alicia Mccarthy | ECON | [address] | | | | | [place] [address] | | + + + + + Care Team Providers + +------+ + | Care Track Grinder Name | Role | Phone | [...] + + | 05/09/ | Office | [facility] | Lio Mendez, | Cough (Primary Dx) | | 2012 | Visit | PULMONARY [address] | MD [address] | | | | | [place], | [place], [place] | | | | | [place] [address] | [address] | | | | | [phone] | | | +--------+---------+ + + + [...] [address] | | | | | | [place] [address] | | | | | | [phone] | | | | | | | | +--------+---------+ + + + documented as of this encounter Visit Diagnoses + + | Diagnosis | + + | Cough - Primary | + + documented in this encounter
--- OUTSIDE RECORDS SUMMARY | ~2020-05-18 | XMS | Encounter Summary ---
Demographics + + + | Address | [address] | | | [place] [address] | + + + | Home Phone [...] | Author | [facility] | [...] [place] | | | | | [address] | | + + + + + | Alicia Mccarthy | ECON | [address] | | | | | [place] [address] | | + + + + + Care Team Providers + +------+ + | Care Director Of Employer Services Name | Role | Phone | + [...] DR DUR[address]AM | | | | | ([facility]) | | [place] | | | | | Procedures | | [address] Phone: | | | | | CV EP | | [phone] | | | | | ABLATION SVT | | Fax: | | | | | | | [phone] | +--------+--------+ + + + + Encounter Details +--------+ + + + + | Date | Type | Department | Care Team | Description | +--------+ + + + + | 10/11/ | [facility] | [facility] | Cornel Bass | Supraventricular | | 2020 - | Encounter | [facility] | MD Viktor [address] | tachycardia (HCC); | | | | CARE FLOOR [address] | [address]INA [address] | Supraventricular | | 10/12/ | | [address] | [place] [address] | tachycardia (HCC) | | 2020 | | [place], [place] | [phone] | | | | | [address] | | | | | | [phone] | | | +--------+ + + + [...] T heseinclude walking, climbing stairs, and doing regional guide. Don't do any heavy physical activity for [...] longer to go away. Date Last Reviewed: 06/26/201619991393-4035 [employer]. [address] [place] [address], [place] [address]. All righ ts reserved. This information is [...] You can't be awakened Date Last Reviewed: 07/13/201619997265-9703 [employer]. [address] [place] [address]. All righ ts reserved. This information is [...] the past several months. He wore a behavioral psychologist through card iology and episodes of a [...] the findings and plan of the [facility] practice provider/house staff with further assessment and [...] Date Abdominal aortic aneurysm (AAA) without rupture ([facility]) 06/20/2019 Arthralgia Atherosclerosis Bronchiectasis ([facility]) Mild , lower lobes CAD [...] and sinus discharge PAD (peripheral artery disease) ([facility]) Polycythemia vera ([facility]) 2016 Renal stone on imaging Sciatica Sinusitis Chronic Stroke ([facility]) Trigeminy Past Surgical History: Procedure [...] - ECG 12 lead; Standing - Void pest control service technician to OR; Standing - Skin prep; Standing - sodium chloride 0.9% (NS) infusion - Basic Metabolic Panel; Standing - CBC with Differential; Standing 1) Supraventricular tachycardia - Mr. Mccarthy has noted episodes of sudden increases in his heart rate on and off for the past several months. He wore a behavioral psychologist through cardio logy and episodes of a [...] with the findings and plan of the [facility] practice provider/house staff with further assessment [...] to floor. 6: 16 PM PSTPlan of [facility] - Jeanette Monroy ARNP - 10/11/2019 4:49 [...] and H&P for a dditional. MARY ANN Ctaes p Note - Ana burgess, Cornel Hoang MD - 10/11/2019 4:12 PM [facility] OPERATIVE REPORT OCRNEL BASS MD Patient: SIMON MCCARTHY Admitting: CORNEL HOOKERILINA MR #: [id number] LOC: PT TYPE: Adm Date: 10/11/2019 : [...] 1. Right superficial femoral vein, a short 8-Guinean sheath exchanged for an 8-Guinean SEPT sheath for quadripolar catheter placed in the high right atrium, exchanged for a 4 mm Blazer II large curved HTD ablation catheter in the right atrium/right ventricle, a short 7-Guinean sheath for a deflectable decapolar catheter placed in the coronary sinus. 2. Left superficial femoral vein, a short 6-Guinean sheath for quadripolar catheter placed in the His position and a short 7-Guinean sheath for quadripolar catheter placed on the [...] episodes of palpitations who wear an outpatient behavioral psychologist and runs of a poss ible supraventricular [...] n catheter was then positioned through the 8-Guinean sheath under fluoroscopic guidance in th e [...] Transcribed on 10/11/2019 21:48:25 by vn job# [id number] Confirmation #: [id number] signed by Cornel Bass MD at 10/12/2019 [...] 3) continue outpatient medications 4) telemetry Dictated: [id number] documented in this encounter Plan of Treatment +--------+---------+ + + + | Date | Type | Specialty | Care Team | Description | +--------+---------+ + + + | 06/25/ | Office | Cardiology | Connie Alvarez | | | 2019 | Visit | | [address] | | | | | | [address] | | | | | | [place] [address] | | | | | | [phone] | | | | | | | [...] | | Absolute | performed at [facility];[address] | K/uL | LABORATORY | | | | Erika Mckeon;[place] | | | | | | [address] | | | | + + + + + + + + | Specimen | + + | Blood | + + + + + + + | Performing | Address | City/State/Zipcode | Phone Number | | Organization | | | | + + + + + | [facility] | [address] | [place] [address] | [phone] | + + + + + Basic [...] | 9.3 | 8.5 - 10.5 | [facility] | | | | | mg/dL | LABORATORY | | + + + + + + | Estimated | 58 (L)Comment: GFR <60: | >60 | [facility] | | | GFR | [...] | | | | performed at [facility];88 | | | | | | [facility];[place], [place] | | | | | | [address] | | | | + + + + + + + + | Specimen | + + | Blood | + + + + + + + | Performing | Address | City/State/Zipcode | Phone Number | | Organization | | | | + + + + + | [facility] | [address] | [place] [address] | [phone] | + + + + + documented [...] ONCE PRN, Wheezing, | | | Starting [facility] 10/11/19 at 1620, | | | [...] | | | | | | longer, [id number] use of | | | | | [...] DBP > 100, Starting | | | Asndra 10/11/19 at 1620, Hold if HR < [...]
--- OUTSIDE RECORDS SUMMARY | ~2020-05-18 | XMS | Encounter Summary ---
Demographics + + + | Address | [address] | | | [place] [address] | + + + | Home Phone | | + + + | Preferred Language | Unknown | + + + | Marital Status | | + + + | Mu-Ism Affiliation | 1041 | + + + | Race | White | + + + | Ethnic Group | Not or | + + + Author + + + | Author | [facility] | | | and [place] | + + + | Organization | [facility] | | | and [place] | + + + | Address | Unknown | + + + | Phone | Unavailable | + + + Support + + + + + | Name | Relationship | Address | Phone | + + + + + | Tera Mccarthy | ECON | [place] | | | | | [address] | | + + + + + | Alicia Mccarthy | ECON | [address] | | | | | [place] [address] | | + + + + + Care Team Providers + +------+ + | Care Lay Out Carpenter Name | Role | Phone | + [...] + + | 05/28/ | Emergency | [facility] | Lele Lopez | SVT | | 2019 | | MEDICAL CENTER | DO Alex [address] | (supraventricular | | | | EMERGENCY CENTER | Blvd [place], [place] | tachycardia) ([facility]) | | | | [address] | [address] | (Primary Dx); WINSOME | | | | [place], [place] | | (acute kidney | | | | [address] | | injury) ([facility]) | | | | [phone] | | | +--------+ + + + [...] Care Everywhere.Kidney Injury, Acute, Discharge Instructions for (Surinamese)Supraventricular Tachycardia (SVT), Understanding (Surinamese)Supraventricular Tachycardia (SVT), Treatment for (Surinamese)documented in this en counter Medications at Time [...] DO - 05/28/2019 1:[address] [facility] Department of Emergency Medicine Simon Mccarthy Emergency Department Encounter Note PCP:Brittany Meehan MD CHIEF COMPLAINT: Chief Complaint Patient presents with Hypotension Tachycardia ED Room: IE6627/DO2100 HPI Simon Mccarthy is a 79 y.o. 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 Home Medications Medication Sig clopidogrel (PLAVIX) 75 [...] Value Ref Range Date/Time Comprehensive Metabolic Panel [[id number]] (Abnormal) Collected: 05/28/191324 Order Status: Completed Specimen: [...] U/L Estimated GFR 47 >60 mL/min/1.73m2 Phosphorus [[id number]] Collected: 05/28/191324 Order Status: Completed Specimen: Blood Updated: 05/28/191411 Phosphorus 3.4 2.3 - 4.8 mg/dL Magnesium [[id number]] Collected: 05/28/191324 Order Status: Completed Specimen: Blood Updated: 05/28/19 1412 Magnesium 1.9 1.7 - 2.4 mg/dL TSH, Reflex Free T4 [[id number]] Collected: 05/28/191324 Order Status: Completed Specimen: Blood Updated: 05/28/19 1412 TSH 3.630 0.450 - 5.100 uIU/mL Troponin I [[id number]] Collected: 05/28/191324 Order Status: Completed Specimen: Blood Updated: 05/28/191411 Troponin T 0.039 0.00 - 0.04 ng/mL CBC with Differential [[id number]] (Abnormal) Collected: 05/28/191324 Order Status: Completed Specimen: [...] Time: 1254 Rate: 131 Rhythm: supraventricular tachycardia [place]: Normal Intervals: QTC 443, QRS 96, no measurable AK interval ST: No significant ST elevations or depressions T Waves: Unremarkable Other: No ectopy, incomplete right bundle branch block Compared to ekg done multiple previous EKGs with no change Overall Impression: Non-specific EKG with supraventricular tachycardia Interpreted by Lele Lopez DO ====EKG Interpretation==== Time: 1317 Rate: 72 Rhythm: sinus rhythm with first-degree AV block [place]: Normal Intervals: AK interval 228, QRS 102, QTc 381 ST: [...] l abs, place the patient on the monitor worker and reevaluate frequently. At this time, no [...] were reviewed along with EMS notes and [facility] record s if applicable. (See chart for details) Medications and Allergy list reviewed. Nurses note and old records were reviewed Discharge Medication List as of 05/28/2019 15:10 FINAL IMPRESSION ICD-10-CM ICD-9-CM 1. SVT (supraventricular tachycardia) ([facility]) I47.1 427.89 2. WINSOME (acute kidney injury) ([facility]) N17.9 584.9 Follow-up Information Schedule an appointment as soon as possible for a visit with Brittany Meehan MD. Specialty: Family Medicine Contact information: [address] [place] [address] [facility]. Specialty: Emergency Medicine Why: As needed, If symptoms worsen Contact information: [address] [facility] [address] Lele Lopez D.O. This document has been prepared with a voice recognition system. The possibility of "sound alike" soccer player errors, addition and/or deletions may occur. If there is any question p lease contact the author of the document. Procedures Lele Lopez DO 05/30/19920 [place]iz[place] RN - 05/28/2019 1:00 PM PDTPatient presents with palpitations with tachycardia with a low B P that he noted on a home monitor this a.m. He denies chest pain but does endorse recent gen eralized weakness. [facility] umented in this encounter Plan of Treatment +--------+---------+ + + + | Date | Type | Specialty | Care Team | Description | +--------+---------+ + + + | 06/25/ | Office | Cardiology | Connie Alvarez | | | 2019 | Visit | | [address] | | | | | | [address] | | | | | | [place] [address] | | | | | | [phone] | | | | | | | [...] + + | Performing | Address | City/State/[facility] | Phone Number | | Organization [...] at | | | | | | [facility] [facility] | | | | | | [address];[place] [address] | | | | + + + + + + + + | Specimen | + + | Blood | + + + + + + + | Performing | Address | City/State/Zipcode | Phone Number | | Organization | | | | + + + + + | [facility] | [address] | [place] [address] | [phone] | + + + + + TSH, Reflex Free T4 (05/28/2019 1:25 PM PDT) + + + + + + | Component | Value | Ref Range | Performed | Pathologist | | | | | At | Signature | + + + + + + | TSH | 3.630Comment: Testing | 0.450 - 5.100 | [facility] | | | | performed at [facility];888 | uIU/mL | LABORATORY | | | | [address];[place], [place] | | | | | | [address] | | | | + + + + + + + + | Specimen | + + | Blood | + + + + + + + | Performing | Address | City/State/Zipcode | Phone Number | | Organization | | | | + + + + + | [facility] | [address] | [place] [address] | [phone] | + + + + + Magnesium (05/28/2019 1:25 PM PDT) + + + + + + | Component | Value | Ref Range | Performed | Pathologist | | | | | At | Signature | + + + + + + | Magnesium | 1.9Comment: Testing | 1.7 - 2.4 mg/dL | [facility] | | | | performed at [facility];[address] | | LABORATORY | | | | [address] [place] | | | | | | [address] | | | | + + + + + + + + | Specimen | + + | Blood | + + + + + + + | Performing | Address | City/State/Zipcode | Phone Number | | Organization | | | | + + + + + | [facility] | [address] | [place] [address] | [phone] | + + + + + Phosphorus (05/28/2019 1:25 PM PDT) + + + + + + | Component | Value | Ref Range | Performed | Pathologist | | | | | At | Signature | + + + + + + | Phosphorus | 3.4Comment: Testing | 2.3 - 4.8 mg/dL | [facility] | | | | performed at [facility];[address] | | LABORATORY | | | | [address] [place] | | | | | | [address] | | | | + + + + + + + + | Specimen | + + | Blood | + + + + + + + | Performing | Address | City/State/Zipcode | Phone Number | | Organization | | | | + + + + + | [facility] | [address] | [place] [address] | [phone] | + + + + + Comprehensive [...] | | | | | performed at [facility];[address] | | | | | | [facility];[place], [place] | | | | | | [address] | | | | + + + + + + + + | Specimen | + + | Blood | + + + + + + + | Performing | Address | City/State/Zipcode | Phone Number | | Organization | | | | + + + + + | [facility] | [address] | [place] [address] | [phone] | + + + + + CBC [...] | | | Absolute | performed at [facility];[address] | K/uL | LABORATORY | | | | [address];[place] | | | | | | [address] | | | | + + + + + + + + | Specimen | + + | Blood | + + + + + + + | Performing | Address | City/State/Zipcode | Phone Number | | Organization | | | | + + + + + | [facility] | [address] | [place] [address] | [phone] | + + + + + ECG [...] (500), | | | | | | editorial writer SHELBI GUERRA | | | | | | ([id number]) on 05/29/2019 | | | | | [...] (500), | | | | | | editorial writer SHELBI GUERRA | | | | | | ([phone]) on 05/29/2019 | | | | | [...]
--- OUTSIDE RECORDS SUMMARY | ~2020-05-18 | XMS | Encounter Summary ---
Demographics + + + | Address | [address] | | | [place] [address] | + + + | Home Phone [...] | Author | [facility] | | [...] [place], [place] | | | | | [address] | | + + + + + | Alicia Mccarthy | ECON | [address] | | | | | [place] [address] | | + + + + + Care Team Providers + +------+ + | Care Taper And Floater Name | Role | Phone | + +------+ + PCP | Unavailable | + +------+ + Encounter Details +--------+ + + + + | Date | Type | Department | Care Team | Description | +--------+ + + + + | 06/26/ | Hospital | [facility] | Nydia Norris MD | Nonspecific Abnormal | | 2009 | Encounter | [facility] | [address] | Unspecified | | | | CLINICAL DECISION | [address] | Cardiovascular | | | | [address] | [place], [place] | Function Study | | | | [place], [place] | [address] | | | | | [address] | [phone] | | | | | [phone] | | | +--------+ + + + [...] [address] | | | | | | [place] [address] | | | | | | [phone] | | | | | | | [...] Performed At | + + + | [id number] | | | Page 1 RADIOLOGY | | | CDU 88723/ | | | OPS [facility] | | | CENTER NAME: SIMON M[place], [place] [address] | | | | | | | | | DATE OF : 1940 ORDER NUMBER: | | | [id number] EXAM DATE/TIME: 06/26/2009 05:50 P ORDERING PHYSICIAN: [...] P P | | | 05:57 P [facility]/cuauhtemoc/[id number]/ cc: MD KELLEE CASSIDY | | | MD RICHARD CARLIN DO NORMAN SITZ, MD | | + + + + + | Procedure Note | + + | Alfred Landry Conversion - 05/21/2019 2:58 AM PDT | | [id number] Page 1 | | RADIOLOGY CDU 95317/ | | OPS | | [facility] NAME: SIMON MCCARTHY | | [place] [address] | | | | DATE OF : 1940 | | | | ORDER NUMBER: [id number] | | EXAM DATE/TIME: 06/26/2009 05:50 P [...] | P | | P | | [facility]//[id number]/ | | cc: NYDIA NORRIS MD | | KELLEE CARLIN MD | | RICHARD PRINGLE DO | | REECE ELIZONDO MD | + + XR Chest 2 Vws (06/26/2009 5:20 PM PDT) + + | Specimen | + + | | + + + + + | Narrative | Performed At | + + + | [id number] | | | Page 1 RADIOLOGY | | | [facility] [address]/ | | | OPS [facility] | | | CENTER NAME: [place] [address] | | | | | | | | | DATE OF : 1940 ORDER NUMBER: | | | [id number] EXAM DATE/TIME: 06/26/2009 04:12 P ORDERING PHYSICIAN: [...] DT: | | | 06/27/2009 05:28 P [facility]/miles/[id number]/ cc: NYDIA NORRIS MD | | | MD KELLEE PINEDA MD NORMAN | | | MD MIKHAIL | | + + + + + | Procedure Note | + + | Alfred Landry Conversion - 05/21/2019 2:58 AM PDT | | [id number] Page 1 | | RADIOLOGY CDU 17539/ | | OPS | | [facility] NAME: [address] | | [place] [address] | | | | DATE OF : 1940 | | | | ORDER NUMBER: [id number] | | EXAM DATE/TIME: 06/26/2009 04:12 P [...] | P | | P | | [facility]/[id number]/ | | cc: NYDIA NORRIS MD | | FABIOLA MARTINEZ MD | | KELLEE CARLIN MD | | REECE ELIZONDO MD | + + VAS Carotid Duplex Bilateral (06/26/2009 5:06 PM PDT) + + | Specimen | + + | | + + + + + | Narrative | Performed At | + + + | [id number] | | | Page 1 RADIOLOGY | | | CDU 35995/ | | | OPS [facility] | | | CENTER [place] [address] | | | | | | | | | DATE OF : 1940 ORDER NUMBER: | | | [id number] EXAM DATE/TIME: 06/26/2009 03:46 P ORDERING PHYSICIAN: [...] | | | 06/26/2009 06:18 P P [facility]/monica/[id number]/ | | | cc: MD KELLEE CASSIDY MD CHET R | | | DO REECE PRINGLE MD | | + + + + + | Procedure Note | + + | Frantz, Rad Conversion - 05/21/2019 2:58 AM PDT | | [id number] Page 1 | | RADIOLOGY CDU 45573/ | | OPS | | [facility] NAME: SIMON MCCARTHY | | [place] [address] | | | | DATE OF : 1940 | | | | ORDER NUMBER: [id number] | | EXAM DATE/TIME: 06/26/2009 03:46 P [...] | P | | P | | [facility]//[id number]/ | | cc: NYDIA NORRIS MD | | KELLEE CARLIN MD | | RICHARD PRINGLE DO | | REECE ELIZONDO MD | + + CV CARDIAC PROCEDURE (06/26/2009 1:45 PM PDT) + + | Specimen | + + | | + + + + + | Narrative | Performed At | + + + | [id number] | | | Page 1 CARDIOLOGY | | | [facility] [address]/ | | | OPS [facility] | | | CENTER NAME: [place] [address] | | | | | | | | | DATE OF : 1940 ORDER NUMBER: | | | [id number] EXAM DATE/TIME: 06/26/2009 12:30 P ORDERING PHYSICIAN: [...] mL of 1% lidocaine solution. Then a 6-Lithuanian | | | arterial sheath was inserted into the right common femoral artery | | | using a modified Seldinger technique. The 6-Lithuanian pigtail catheter | | | was advanced [...] the guidewire by a | | | 6-Lithuanian JL4 catheter that was advanced over the guidewire under | | | fluoroscopy and engaged to the left main artery. Dye injected into | | | the left coronary system and multiple angiographic pictures of the | | | left coronary system were taken in multiple projections. The JL4 | | | catheter was exchanged over the guidewire by a 6-Lithuanian RCA Victor Hugo | | | catheter [...] | | | 06/26/2009 07:49 P A A[facility]/fredi/[id number]/ cc: | | | MD REECE CASSIDY MD | | + + + + + | Procedure Note | + + | Alfred Landry - 05/21/2019 2:58 AM PDT | | [id number] Page 1 | | CARDIOLOGY [facility] [address]/ | | OPS | | [facility] NAME: SIMON MCCARTHY | | [place] [address] | | | | DATE OF : 1940 | | | | ORDER NUMBER: [id number] | | EXAM DATE/TIME: 06/26/2009 12:30 P [...] mL of 1% lidocaine solution. Then a 6-Lithuanian arterial sheath was | | inserted into the right common femoral artery using a modified Seldinger | | technique. The 6-Lithuanian pigtail catheter was advanced over the guidewire [...] over the | | guidewire by a 6-Lithuanian JL4 catheter that was advanced over the | | guidewire under fluoroscopy and engaged to the left main artery. Dye | | injected into the left coronary system and multiple angiographic | | pictures of the left coronary system were taken in multiple projections. | | The JL4 catheter was exchanged over the guidewire by a 6-Lithuanian RCA | | Victor Hugo catheter that [...] | P | | A | | [facility]/fredi/[id number]/ | | cc: NYDIA NORRIS MD | | REECE ELIZONDO MD | + + documented in this encounter Visit Diagnoses + + | Diagnosis | + + | Nonspecific abnormal unspecified cardiovascular function study | + + documented in this encounter"
--- OUTSIDE RECORDS SUMMARY | 2020-05-18 20:42 | XMS ---
PreManage Notification: ROBBIE LARRY Security Dietary Server Events No recent Security Events currently on file CRITERIA MET - [facility] - Has Care Guidelines CARE PROVIDERS KI HERNANDEZ Internal Medicine 03/18/2020-Current PHONE: [phone] ERIKA BOO Internal Medicine: Pulmonary Disease 10/16/2019-Current PHONE: Unknown Radha has no Care Guidelines for this patient. Care History Medical/Surgical 03/18/2020 [facility] Patient has follow up with Dr. Hernandez on 03/25/2020 10/16/2019 [facility] Patient admitted, has follow up with Dr. Meehan on 10/22/2019. 10/16/2019 [facility] - Patient is currently established with [facility]. If patient is seen in the ED during business hours. Please contact CHWs at [facility]. Care Recommendation: If this patient has had 5 or more Emergency Department visits in the last 12 months.\T\nbsp; Patient will require education on the scope and purpose of the ED as an acute care provider not a Primary Care Provider and should not be utilized for chronic conditions.\T\nbsp; These are guidelines and the provider should exercise clinical judgment when providing care. Dat VISIT COUNT (12 MO.) 4 [facility] [address] [facility] TOTAL 8 NOTE: Visits indicate total known visits. ED/UCC VISIT TRACKING (12 MO.) 05/18/2020 20:40 [facility] [place] TYPE: Emergency COMPLAINT: - DIFFICULTY SWALLOWING 03/17/2020 19:13 [facility]isen[facility] TYPE: Emergency COMPLAINT: - HIGH BP DIAGNOSES: - Essential (primary) hypertension - Other intermediate (current) drug therapy - Personal history of transient ischemic attack (TIA), and cere - Allergy status to penicillin 12/23/2019 16:15 [facility] TYPE: Emergency DIAGNOSES: 0. EMS DIZZINESS 10/16/2019 00:05 MEGAN Briseno TYPE: Emergency COMPLAINT: - HEADACHE/BALANCE ISSUES 08/11/2019 [facility] TYPE: Emergency DIAGNOSES: - Bradycardia, unspecified - Dizziness - Difficulty in walking, not elsewhere classified - Personal history of transient ischemic attack (TIA), and cere - Ataxia, unspecified - Weakness - Hypertension - Dizziness and giddiness - Hyperlipidemia, unspecified [facility]30/2019 [facility]03 [facility] DIAGNOSES: - Paroxysmal tachycardia, unspecified - Acute kidney failure, unspecified - Shortness of Breath 05/29/2019 11:48 [facility] TYPE: Emergency DIAGNOSES: - Hypotension - Other specified postprocedural states - Abnormal levels of other serum enzymes - Polycythemia vera - Other fatigue - Tachycardia - Personal history of transient ischemic attack (TIA), and cere - Mixed hyperlipidemia - Personal history of other specified conditions - Essential (primary) hypertension - Atherosclerotic heart disease of [place] coronary artery witho - Presence of aortocoronary bypass graft 05/28/2019 12:41 [facility]: Emergency DIAGNOSES: - Tachycardia - Acute kidney failure, unspecified - Hypotension - Supraventricular tachycardia INPATIENT VISIT TRACKING (12 MO.) 11/07/2019 13:12 [facility] TYPE: Surgery DIAGNOSES: 0. LAPAROSCOPIC G TUBE PLACEMENT CPT UNK FAILURE TO TH 0. 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 - Ataxia, unspecified - terminal carman (current) use of antithrombotics/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 - Essential (primary) hypertension - Prediabetes - Ataxia, unspecified - Diplopia - Unspecified atherosclerosis of [place] arteries of extremities - Prediabetes - NIHSS score 0 - terminal carman (current) use of antithrombotics/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 - Hyperlipidemia, unspecified - Hyperlipidemia, unspecified - Essential (primary) hypertension - Cerebral infarction, unspecified - NIHSS score 0 - Allergy status to penicillin - Brain stem stroke syndrome - Other terminal press operator (current) drug therapy - Dizziness and giddiness - Allergy status to penicillin - Internuclear ophthalmoplegia, left eye - Brain stem stroke syndrome - Dizziness and giddiness 05/30/2019 21:03 [facility] Valerie CARO TYPE: Internal Medicine DIAGNOSES: - Tachycardia, unspecified - Acute kidney failure, unspecified - Atherosclerosis of coronary artery bypass graft(s) without an - Paroxysmal tachycardia, unspecified [email or web address]
[2020-05-18] MEDS ORDERED: LOSARTAN POTASS50 MG PO (20:57)
[2020-05-18] MEDS ORDERED: MECLIZINE HCL12.5 MG PO (20:57)
--- NOTE | 2020-05-18 23:30 | NUR ---
REPORT RECEIVED FROM ED MARQUIS GLOVER. pt TO ARRIVE TO MS VIA STRETCHER.
--- NOTE | 2020-05-18 23:54 | NUR ---
RUPAL CHO ADMITTING PT, VS TAKEN AND STABLE. CALL LIGHT IN REACH.
--- NOTE | 2020-05-18 23:55 | NUR ---
pt ARRIVES TO MS VIA STRETCHER. AMBULATORY TO BED, SOME DIZZINESS, pt STATES IS CHRONIC. WALKER USE AT HOME. ORIENTATION TO ROOM PROVIDED. ASSESSMENT COMPLETE. SUCTION ON AND NEXT TO pt. VSS. pt NPO, VERBALIZES UNDERSTANDING TO USE CALL LIGHT BEFORE OUT OF BED. URINAL AND PERSONAL SUPPLIES IN REACH. MEDICATIONS TO SAFE.
--- NOTE | 2020-05-19 02:13 | NUR ---
pt RESTING IN BED ON LEFT SIDE, BREATHING UNLABORED. LIGHTS OFF IN ROOM. IVF INFUSING ORDERED.
--- NOTE | 2020-05-19 06:18 | NUR ---
pt SLEEPING. AWAKENS TO VOICE. IVF INFUSING WNL ORDERED. VSS. ASSESSMENT COMPLETE. URINAL EMPTIED. pt CLEARING THROAT STATES "IT STILL FEELS LIKE SOMETHING'S STUCK IN THERE". SUCTION AT BEDSIDE. LUNG SOUNDS CLEAR THROUGHOUT. CALL LIGHT IN REACH.
--- NOTE | 2020-05-19 06:26 | NUR ---
pt NPO, SUCTION AT BEDSIDE. IVF INFUSING WNL ORDERED. pt FEELS THOUGH FOOD STUCK IN THROAT, ATTEMPTS AT CLEARING THROAT THROUGHOUT SHIFT. APPEARS TO HAVE RESTED WELL. 1PA W FWW, GAIT UNSTEADY, C/O DIZZINESS. NO C/O NAUSEA OR PAIN. VOIDING IN URINAL AT BEDSIDE. ALERT AND ORIENTED.
--- NOTE | 2020-05-19 07:25 | NUR ---
BEDSIDE RPEORT THIS AM..PT RESTING IN BED ALERT TO STAFF IN ROOM. NO ISSUES PT AWARE HE IS NPO AND POSSIBLE PLAN FOR PROCEDURE TODAY. PT VERBALIZES NO QUESTIONS AT THIS TIME.
--- NOTE | 2020-05-19 08:21 | NUR ---
PATIENT RESTING IN BED. WHITE BOARD UPDATED. PATIENT'S HANDS AND FACE WASHED. ONE PERSON ASSISTING. PATIENT COMPLAINS ABOUT DRYE EYES. RN NOTIFIED. CALL LIGHT WITHIN REACH. NO OTHER NEEDS AT THIS TIME
--- NOTE | 2020-05-19 09:18 | NUR ---
PATIENT RESTING IN BED. VITAL SIGNS AND I&O DONE. CALL LIGHT WITHIN REACH. NO OTHER NEEDS AT THIS TIME
--- NOTE | 2020-05-19 09:52 | NUR ---
PT RESTING IN BED AM MED PASS COMPLETE. PT REPORTS CONCERN OF POSSIBLE SINUS INFECTION AND OR EAR INFECTION. HE CONTINUES TO USE SUCTION TO SPUTUM. VOSING WELL, CONSENT SIGNED PLAN FOR PROCEDURE EGD THIS AFTERNOON.
--- NOTE | 2020-05-19 13:18 | NUR ---
PATIENT RESTING IN BED. VITAL SIGNS AND I&O DONE. CALL LIGHT WITHIN REACH. NO OTHER NEEDS AT THIS TIME
--- NOTE | 2020-05-19 14:24 | NUR ---
05/19/20 1424 Susanne Gomez 1417 PT ARRIVED TO PACU ON 2L NC, VSS. PT WAKES EASILY TO TACTILE STIMULI AND IS REORIENTED TO PACU/ROOM 10. PT FALLS BACK TO SLEEP AND SMALL AMOUNT OF SNORING NOTED.
--- NOTE | 2020-05-19 15:00 | NUR ---
pt back to room 123 from EGD PROCEDURE. PT ALERT AND ORIENTED. TALKING WITH STAFF, HE REPORTS NO PAIN. PT SAID HE WOULD TAKE SOHAIL EICE WATER BUT WANTS TO WAIT AWHILE FOR FULL LIQUID.
--- NOTE | 2020-05-19 15:51 | NUR ---
POST PROCEDURE V/S STABLE, PT ATE APPLESAUCE WITH PO MEDICATIONS SWALLOWED WITH NO DISTRESS OR COUGH, HE THEN REQUEST TO WALK NOW, PT UP AMBULATING IN HALLS.
--- NOTE | 2020-05-19 16:00 | NUR ---
Spoke with Simon for CM assessment. He gave update on his rehab in [place] following a stroke. He feels he is doing well. 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 He has breakfast and lunch with Simon every day, then checks on him prior to leaving at night. Simon has a house keeper. His Mary remains in an assisted living. He states is doing ok and cont. his rehab exercises daily. Plans on returning home when cleared by Dr. Mcfarland following the EGD this afternoon. Notified by Rn pt will dc tomorrow.
--- NOTE | 2020-05-19 16:45 | NUR ---
PT WAS SLEEPING IN BED WHEN CHECKED ON. PT IN BED, CALL LIGHT WITHIN REACH, BED IN LOWEST POSITION. WILL CONTINUE TO MONITOR THE PT.
--- NOTE | 2020-05-19 17:11 | NUR ---
PT HAS BEEN ALERT AND ORIENTED. PT WENT TO DAYSURGERY FOR EGD. PT RETURNED FROM PROCEDURE AWAKE AND ORIENTED AND HAS BEEN STABLE. PT HAS BEEN TOLERATING MEDICATIONS AND FULL LIQUID DIET WELL. PT IS STANDBY ASSIST BUT CAN AMBULATE WITH WALKER. PT REPORTS NO PAIN OVER THIS SHIFT.
--- NOTE | 2020-05-19 18:49 | PATH ---
[facility] [address] [facility] [place], [place] [address] Signed ORDERING PHYSICIAN: Glenroy Rockwell MD PATIENT NAME: ROBBIE LARRY GENDER: Romeo : 1940 SPECIMEN(S): No Source Given MOLECULAR PATHOLOGY RESULTS: SARS-CoV-2 Not Detected ADDITIONAL NOTES.: The Brightwood Fusion SARS-CoV-2 Assay is a multiplex real-time PCR (RT-PCR) in vitro diagnostic test intended for the qualitative detection of RNA from SARS-CoV-2 from individuals who meet COVID-19 clinical and/or epidemiological criteria. In general, SARS-CoV-2 RNA can be detected during the acute phase of infection. Positive results indicate the presence of SARS-CoV-2 RNA. Clinical correlation with patient history and other diagnostic information is necessary to determine patient infection status. Positive results do not rule out bacterial infection or co-infection with other viruses. Negative results do not preclude SARS-CoV-2 infection and should not be used as the sole basis for patient management decisions. Negative results must be combined with other clinical observations, patient history, and epidemiological information. The Brightwood Fusion SARS-CoV-2 Assay is not yet approved or cleared by the [place] FDA. When there are no FDA-approved or cleared tests available, and other criteria are met, FDA can make tests available under an emergency access mechanism called an Emergency Use Authorization (EUA). The EUA for this test is supported by the [place] of Health and Human Service's (HHS's) declaration that circumstances exist to justify the emergency use of in vitro diagnostics for the detection and/or diagnosis of the virus that causes COVID-19. This EUA will remain in effect for the duration of the COVID-19 declaration justifying emergency of IVDs, unless it is terminated or revoked by FDA, after which the test may no longer be used. The Brightwood Fusion SARS-CoV-2 Assay is for use only under EUA in US laboratories certified under the Clinical Laboratory Improvement Amendments of 1988 (CLIA) to perform high complexity tests. [facility] is certified under CLIA to perform high complexity PATIENT NAME: ROBBIE LARRY PATHOLOGY DATE OF : 40 REPORT #: [id number] PHYSICIAN: TIANA TANG PCP: KI HERNANDEZ MD REPORT IS CONFIDENTIAL AND NOT TO BE RELEASED WITHOUT AUTHORIZATION [address] [address] Signed clinical laboratory testing. PERFORMING LABORATORY.: Molecular testing was performed by [facility] [address] (Pastry Artist: Alhaji No D.O.; CLIA#: [id number]) Diagnostician: System Interface Pathologist Electronically Signed 05/19/2020 Copies: ~ PATIENT NAME: LARRY,ROBBIE DANNY PATHOLOGY DATE OF : 40 REPORT #: [id number] PHYSICIAN: TIANA TANG PCP: KI HERNANDEZ MD REPORT IS CONFIDENTIAL AND NOT TO BE RELEASED WITHOUT AUTHORIZATION
--- NOTE | 2020-05-19 19:37 | NUR ---
BEDSIDE REPORT RECEIVED FROM MARQUIS GUZMAN. pt SITTING UP IN BED, COUGHING, ATTEMPTING TO GET FOOD UP. SMALL AMT OF SOLID CONTENT NOTED IN EMESIS BASIN WITH PHLEGM. STATES "MY CHEST HURTS, LIKE SOMETHINGS STUCK." MD PHONED PER pt REQUEST, WILL COME IN TO SEE pt.
--- NOTE | 2020-05-19 20:55 | NUR ---
CALL LIGHT ANSWERED. WARM BLANKET PROVIDED. IN ROOM DISCUSSING PLAN OF CARE WITH pt. pt NO LONGER COUGHING, FEELS THOUGH FOOD HAS PASSED DOWN. CLEAR LIQUID DIET ORDERED FOR NOW, NPO AT MIDNIGHT.
--- NOTE | 2020-05-19 21:29 | NUR ---
VSS. pt DENIES PAIN, DENIES NAUSEA. OCCASIONAL CLEARING OF THROAT. DENIES FEELING LIKE FOOD IS CAUGHT IN THROAT AT THIS TIME. ASSESSMENT COMPLETE. SBA WITH FWW TO RESTROOM FOR BM. pt VERBALZIES UNDERSTANDING TO USE CALL LIGHT WHEN FINISHED. IVF IS INFUSING WNL ORDERED.
--- NOTE | 2020-05-19 21:39 | NUR ---
pt BACK IN BED FROM RESTROOM. LARGE FORMED BM, VOID NOTED. NEW BAG IVF INFUSING WNL ORDERED. CALL LIGHT IN REACH. LIGHTS OFF IN ROOM.
--- NOTE | 2020-05-20 00:40 | NUR ---
CHECKED ON pt. RESTING IN BED WITH EYES CLOSED. BREATHING UNLABORED. LIGHTS OFF IN ROOM.
--- NOTE | 2020-05-20 02:37 | NUR ---
CHECKED ON pt. RESTING IN BED WITH EYES CLOSED, BREATHING UNLABORED. LIGHTS OFF IN ROOM.
--- NOTE | 2020-05-20 06:24 | NUR ---
pt SLEEPING, AWAKENS TO VOICE. VSS. URINAL EMPTIED. ASSESSMENT COMPLETE. pt DENIES NAUSEA. STATES "I FEEL PRETTY GOOD". CALL LIGHT IN REACH. pt NPO.
--- NOTE | 2020-05-20 06:41 | NUR ---
pt SLEPT WELL THIS SHIFT. IVF INFUSING WNL ORDERED. MD IN TO SEE pt THIS SHIFT. CLEAR LIQUID DIET. NPO AT MIDNIGHT FOR UPPER GI FOLLOW THROUGH TODAY. BM THIS SHIFT. 1PA FWW.
--- NOTE | 2020-05-20 07:50 | NUR ---
PATIENT SLEEPING. WHITE BOARD UPDATED. CALL LIGHT WITHIN REACH. NO OTHER NEEDS AT THIS TIME
--- NOTE | 2020-05-20 07:50 | NUR ---
RECEIVED REPORT FROM RUPAL CHO. PT APPEARS TO BE RESTING COMFORTABLE IN BED WITH CALL LIGHT WITHIN REACH AND RESPIRATIONS NOTED.
--- NOTE | 2020-05-20 08:30 | NUR ---
PATIENT RESTING IN BED. PATIENT'S HANDS AND FACE CLEANED. CALL LIGHT WITHIN REACH. NO OTHER NEEDS AT THIS TIME
--- NOTE | 2020-05-20 08:45 | NUR ---
IN PTS ROOM TO GIVE MORNING MEDS AND DO MORNING ASSESSMENT. PT HAS NO COMPLAINTS AT THIS TIME. THIS RN HELD PTS MORNING MEDS DUE TO PT BEING NPO AND NEEDING TO TAKE MEDS WITH APPLESAUCE
--- NOTE | 2020-05-20 09:52 | NUR ---
THIS RN TO ROOM TO CHECK ON PT. PT RESTING IN BED, ON BACK WITH EYES CLOSED. BED RAILS UP. CALL LIGHT WITHIN REACH. PT ALLOWED TO REST.
--- NOTE | 2020-05-20 09:58 | NUR ---
PATIENT RESTING IN BED. VITAL SIGNS AND I&O DONE. CALL LIGHT WITHIN REACH. NO OTHER NEEDS AT THIS TIME
--- NOTE | 2020-05-20 10:21 | HP ---
[facility] [address] [place], [place] [address] Signed ADMISSION DATE: 05/18/2020 REASON FOR ADMISSION: Incomplete obstruction of esophagus. HISTORY OF PRESENT ILLNESS: This 80-year-old white man suffered a stroke in the past year and underwent several months of rehab in [place], [place]. He has a distant history of coronary artery bypass grafting times multiple vessels as well as subsequent bilateral carotid endarterectomy. He had a significant amount of debility from his stroke an thought to have had cervical dysphagia and so forth, ultimately requiring a PEG tube for enteral nutrition. The tube was ultimately removed. The patient lives alone in [place], [place] and is seen daily by his son, Tera. He is largely independent. 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 His has severe dementia and is in a jail situation. His only residual issue is right arm weakness to a mild degree. Last night he was eating at TV dinner of mashed potatoes and chicken and felt that it was "stuck." He tried to burp several times and brought the chicken up, but then felt that there was still some residual food in the esophagus. He presented to the emergency room and was evaluated by Dr. Rockwell at approximately 8:40 p.m. The patient had coughed up a fair amount of phlegm, but did not have hypersalivation or anything of that sort. Although, the patient felt that things were much improved, he was still with a sensation in his throat about the region of the suprasternal notch. He was admitted directly to the hospital for IV fluids and made n.p.o. anticipating endoscopy today. PAST MEDICAL HISTORY: As previously described included coronary artery bypass grafting as well as carotid endarterectomy. PAST SURGICAL HISTORY: His open-heart surgeries in 2008, carotid endarterectomy in 2009. He had an ablated procedure on October 10, 2019. MEDICATIONS: Currently include Electronically Signed By: GERBER MENDOZA MD 05/20/20 1021 PATIENT NAME: ROBBIE LARRY HISTORY AND PHYSICAL DATE OF : 40 REPORT #: [id number] PHYSICIAN: GERBER MENDOZA MD PCP: KI HERNANDEZ MD REPORT IS CONFIDENTIAL AND NOT TO BE RELEASED WITHOUT AUTHORIZATION [facility] [address] [place], [place] [address] Signed 1. Zetia. 2. Aspirin. 3. Metoprolol 25 mg p.o. daily. 4. Meclizine 12.5 mg daily. 5. Losartan 50 mg daily. 6. Plavix 1 tab p.o. daily. 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 His is has severe dementia and is in a local care facility. His son watches after him, though he does not live in the same household. REVIEW OF SYSTEMS: At present, he does not feel that there is anything stuck in his throat, though he is not certain of that. He has had certainly no hypersalivation. He denies any upper chest pain. He has no anginal pain. PHYSICAL EXAMINATION: GENERAL: A very pleasant white man, who looks in no distress at this time. VITAL SIGNS: Temperature is 97.7, pulse 66, respirations 16, blood pressure 127/66, O2 saturation 95% on room air. NECK: Shows no thyromegaly or cervical adenopathy. Trachea is midline. I see no adenopathy. He has no hoarseness. CHEST: Shows normal respiratory excursion without tachypnea. ABDOMEN: Soft, flat, easily palpable without palpable mass. There is a small incision in the left upper quadrant from prior gastrostomy tube. EXTREMITIES: Show no clubbing, cyanosis, or edema. LABORATORY STUDIES: Show a white count of 6.1, hematocrit of 49.6, platelets of 218,000. Chem profile essentially normal. The creatinine is slightly elevated at 1.16. Liver enzymes normal. ALT is low at 6. Albumin is 4.2. A chest x-ray performed last night shows sternal wires. There is no sign of pneumothorax or infiltration of the lungs. There were no abnormalities noted. ASSESSMENT: The patient had an episode of significant dysphagia. He has underlying CVA history was significant enough that he required a PEG tube. He does not complain generally of dysphagia nor of gastroesophageal reflux type symptoms. He is not on a PPI medication. I suspect that he does have a primary dysmotility problem of the esophagus, possibly related to his cerebrovascular accident from the past, though the possibility Electronically Signed By: GERBER MENDOZA MD 05/20/20 1021 PATIENT NAME: ROBBIE LARRY HISTORY AND PHYSICAL DATE OF : 40 REPORT #: [id number] PHYSICIAN: GERBER MENDOZA MD PCP: KI HERNANDEZ MD REPORT IS CONFIDENTIAL AND NOT TO BE RELEASED WITHOUT AUTHORIZATION [address] [address] Signed of a stricture or other abnormality is considered. He show no evidence of hypersalivation or sign of persistent obstructive food impaction at this time and I would recommend upper endoscopy be performed today to assess for stricture or neoplasm, however unlikely that might be. Additionally, biopsies would be obtained to assess for eosinophilic esophagitis, an emerging and more recognized cause of dysphagia. The risks of bleeding, infection, and perforation were reviewed with him, he understands. Plan for upper endoscopy today. MD MINESH Ayoub/TRELLL /[id number] cc: MD Glenroy Lopez MD Copies: KI HERNANDEZ MD, SHELDON MD ~ Electronically Signed By: GERBER MENDOZA MD 05/20/20 1021 PATIENT NAME: ROBBIE LARRY HISTORY AND PHYSICAL DATE OF : 40 REPORT #: [id number] PHYSICIAN: GERBER MENDOZA MD PCP: KI HERNANDEZ MD REPORT IS CONFIDENTIAL AND NOT TO BE RELEASED WITHOUT AUTHORIZATION
--- NOTE | 2020-05-20 10:40 | NUR ---
IMAGING TECHNITIANS ARRIVED TO TAKE PT FOR SCAN. PT SALINE LOCKED. PT TRANSFERES SELF TO WHEELCHAIR WITH ON PERSON ASSIST. WARM BALANKET PROVIDED. PT DENIES NAUSEA. PT TO IMAGING DEPARTMENT.
--- NOTE | 2020-05-20 11:00 | NUR ---
THIS RN IN PTS ROOM TO RECONNECT PT TO FLUID AFTER [facility]ING [facility]. PT IN [facility] SPIRITS AND STATES THAT HE NEEDS NOTHING AT THIS TIME.
--- NOTE | 2020-05-20 11:40 | NUR ---
CALL LIGHT ANSWERED. PATIENT GOES TO USE THE BATHROOM. ONE PERSON ASSISTING. PATIENT BACKS TO BED. PATIENT REFUSED TO TAKE A SHOWER TODAY. CALL LIGHT WITHIN REACH. NO OTHER NEEDS AT THIS TIME
--- NOTE | 2020-05-20 13:55 | NUR ---
PATIENT RESTING IN BED. VITAL SIGNS AND I&O DONE. CALL LIGHT WITHIN REACH. NO OTHER NEEDS AT THIS TIME
[2020-05-20] MEDS ORDERED: FLONASE ALLERG9.9 ML NAS (15:01)
--- NOTE | 2020-05-20 15:01 | NUR ---
MED REC COMPLETE
--- NOTE | 2020-05-20 15:30 | NUR ---
Spoke with Simon. He had a swallow study. Denies c/o. Feeling better and pressure of food is gone in his chest and throat. Feels his difficulty swallowing is from his hx of stroke. Plans on dc to home when cleared by DR. Mcfarland.
--- NOTE | 2020-05-20 17:45 | NUR ---
IN PTS ROOM TO GIVE EVENING MEDS. PT SITTING ON THE EDGE OF BED TO EAT DINNER. PT COUGHING TRYING TO CLEAR THROAT. THIS RN DISCUSSED WTIH PT TO MAKE SURE TO TRY TO RELAX AND TUCK HIS CHIN TO ASSIST WITH SWALLOWING. PT FOLLOW DIRECTIONS AND THIS HELPED FOR AWHILE.
--- NOTE | 2020-05-20 18:28 | OR ---
[facility] [address] [place], [place] [address] Signed DATE OF OPERATION: 05/19/2020 SURGEON: Gerber Mendoza MD PREOPERATIVE DIAGNOSES: 1. Perception of food impaction since last night. 2. 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 POSTOPERATIVE DIAGNOSES: 1. No evidence of esophageal stricture or stigmata of eosinophilic esophagitis. No sign of Hernández's epithelium and hiatal hernia. 2. Duodenitis and gastritis. PROCEDURE: Esophagogastroduodenoscopy with biopsy. ANESTHESIA: Intravenous sedation, fentanyl 100 mcg and Versed 2 mg total. INDICATION: This is an 80-year-old white male, who was admitted last night, having presented to the emergency room with symptoms of food stuck in the esophagus. He had eaten chicken at dinner time. He wrecked the chicken, but still felt there was presence of foreign body. Evaluation by Dr. Rockwell in the emergency room showed him to be hemodynamically stable. He has had no drooling or other signs of advanced esophageal obstruction. He still feels a sensation that there may be something "stuck." He notes the cervical area as the site. He did have a significant medullary cerebrovascular accident in September, requiring several months of rehabilitation efforts at [place]. Whether he was having problem swallowing or other concurrent problem related to the stroke is uncertain. However, he did have a PEG a feeding tube in his convalescence. That has long been removed. He was admitted and given intravenous fluids and persists with some sensation in the esophagus, but unlikely has obstructing foreign body at this time. On that basis, I have recommended upper endoscopy. The risks of bleeding, infection, and perforation were reviewed with him. He understands and wished to proceed. FINDINGS: There was no sign of stricture neoplasm. There was no Hernández's epithelium or varices. He did not have typical stigmata of eosinophilic esophagitis. The vocal cords were Electronically Signed By: GERBER MENDOZA MD 05/20/20 1828 PATIENT NAME: ROBBIE LARRY OPERATIVE REPORT DATE OF : 40 REPORT #: [id number] PHYSICIAN: GERBER MENDOZA MD PCP: KI HERNANDEZ MD REPORT IS CONFIDENTIAL AND NOT TO BE RELEASED WITHOUT AUTHORIZATION [facility] [address] [place], [place] [address] Signed reasonably normal. The stomach was notable for antral gastritis and duodenitis was noted including a bulbar portion. Biopsies were taken throughout. CLOtest was negative. DESCRIPTION OF PROCEDURE: The patient was brought to the endoscopy suite and given topical lidocaine spray anesthesia, placed in lateral decubitus position, given intravenous sedation to the point of slurred speech and nystagmus. Full cardiopulmonary monitoring was maintained. An Olympus video upper endoscope was passed in the hypopharynx. The vocal cords overall appeared normal. The scope was advanced to the esophagus. There was no sign of finding of concern at that time. The scope was advanced to the stomach, which was insufflated with air. Rugal folds were normal. The antrum did have chronic inflammatory change. No ulceration. The pylorus was normal. Scope was passed through into the duodenum, which was normal except for inflammatory changes of the bulbar 2nd portion is these areas were biopsied. The scope was withdrawn. A biopsy was then taken of the antrum for both CORTNEY and pathologic testing. Retroflexed view showed a moderate-sized hiatal hernia. Proximal stomach had no other abnormalities other than the hiatal hernia. The scope was straightened, withdrawn to the distal esophagus where biopsies were obtained, though it appeared grossly normal. The midesophagus was biopsied fully and there were some superficial nodular changes there as well of uncertain clinical significance. Biopsies of that and normal-appearing esophageal mucosa undertaken as well. Careful withdrawal of scope allowed free visualization of the vocal cords, which showed no sign of deformity. The patient was then taken to the recovery room in good condition having suffered no complication. CONCLUDING DIAGNOSES: 1. Antral and duodenal inflammation, consistent with gastritis and duodenitis. 2. No evidence of mechanical obstruction of the esophagus; biopsies to assess for eosinophilic esophagitis are pending. PLAN: We will initiate Prilosec 20 mg p.o. daily. We will do a trial of liquids and ultimately more substantial food and assess his response to that. Gerber Mendoza MD /MODL /[id number] Electronically Signed By: GERBER MENDOZA MD 05/20/20 1828 PATIENT NAME: ROBBIE LARRY OPERATIVE REPORT DATE OF : 40 REPORT #: [id number] PHYSICIAN: GERBER MENDOZA MD PCP: KI HERNANDEZ MD REPORT IS CONFIDENTIAL AND NOT TO BE RELEASED WITHOUT AUTHORIZATION [address] [address] Signed cc: MD Ki Barron MD Copies: SELENE ROCKWELL MD, LOHITH VEERAPPA MD ~ Electronically Signed By: GERBER MENDOZA MD 05/20/20 1828 PATIENT NAME: ROBBIE LARRY OPERATIVE REPORT DATE OF : 40 REPORT #: [id number] PHYSICIAN: GERBER MENDOZA MD PCP: KI HERNANDEZ MD REPORT IS CONFIDENTIAL AND NOT TO BE RELEASED WITHOUT AUTHORIZATION
--- NOTE | 2020-05-20 19:34 | NUR ---
REPORT RECEIVED FROM DAY SHIFT RN. PT LYING IN BED, ALERT AND ORIENTED. NO NEEDS AT THIS TIME. WHITE BOARD UPDATED. CALL LIGHT IN REACH.
--- NOTE | 2020-05-20 20:00 | NUR ---
CALL LIGHT ANSWERED. pt REQUESTING TO WALK, SBA WITH FWW WITH THIS RN IN HALLWAY X 2 LAPS. pt TOLERATED WELL, DENIES DIZZINESS. VOID IN RESTROOM. BACK IN BED. IVF INFUSING WNL ORDERED. VANILLA ENSURE PROVIDED. CALL LIGHT IN REACH.
--- NOTE | 2020-05-20 21:30 | NUR ---
EVENING ASSESSMENT COMPLETE. SCHEDULED MEDS ADMINISTERED WITH BITES OF APPLE SAUCE PER PT REQUEST. NO SWALLOWING ISSUES NOTED AT THIS TIME. PT DENIES PAIN OR NAUSEA. IVF INFUSING. PT VOID QS. PT DENIES FURTHER NEEDS AT THIS TIME. CALL LIGHT IN REACH.
--- NOTE | 2020-05-21 00:34 | NUR ---
COUGHING HEARD FROM PT ROOM. IN TO CHECK ON PT. PT REPORTS HE FEELS LIKE HE HAS "PHLEGM STUCK IN THE BACK OF HIS THROAT". PT DOES NOT APPEAR IN DISTRESS, RR EVEN AND UNLABORED. DENIES NEEDS. CALL LIGHT IN REACH.
--- NOTE | 2020-05-21 01:03 | NUR ---
PT RESTING IN BED WITH EYES CLOSED, NAD.
--- NOTE | 2020-05-21 02:57 | NUR ---
PT RESTING IN BED WITH EYES CLOSED. RR EVEN AND UNLABORED. IVF INFUSING. URINAL EMPTIED.
--- NOTE | 2020-05-21 06:06 | NUR ---
PT SLEPT WELL. ALERT AND ORIENTED. USES CALL LIGHT. RA. SBA WITH FWW. NO SWALLOWING ISSUES NOTED. MEDS GIVEN WITH BITES OF APPLE SAUCE. PT WOKE AROUND MIDNIGHT COUGHING AND TRYING TO CLEAR HIS THROAT HE FELT HE HAD "PHLEGM CAUGHT IN IT". NO COUGHING NOTED SINCE. IVF. CESAR FULL LIQ.
[2020-05-21] MEDS ORDERED: PANTOPRAZOLE SO40 MG PO (08:13)
--- NOTE | 2020-05-21 09:02 | NUR ---
ATE 100% OF FULL LIQUID DIET, DENIES ANY PROBLEM WITH SWALLOW, STATES HE SLEPT BETTER LAST NIGHT. HOPES TO GO HOME TODAY. DR MENDOZA IN TO SEE PT AND DISCHARGE ORDER IS NOTED.
--- NOTE | 2020-05-21 09:53 | NUR ---
PATIENT AWAKE IN BED, VITALS AND I&OS CHARTED. URINAL EMPTIED.
--- NOTE | 2020-05-21 10:12 | NUR ---
CONSULT RECEIVED FOR EDUCATION ON A FULL LIQUID DIET. PATIENT LIVES BY HIMSELF BUT HIS SON WILL DO THE GROCERY SHOPPING FOR HIM. PROVIDED HIM WITH A HANDOUT ON FOODS ALLOWED ON A FULL LIQUID DIET. ALSO PROVIDED A SAMPLE MENU. HE DRINKS A LOT OF GATORADE. STATES HE LIKES CREAM OF WHEAT BUT DOESN'T LIKE CREAM OF TOMATO SOUP. I SUGGESTED THAT HE BUY SOME ENSURE OR BOOST OR OTHER ORAL NUTRITION SUPPLEMENT THAT CONTAINS PROTEIN, VITAMINS AND MINERALS TO HELP PROVIDE MORE PROTEIN. HE SAID HE WILL HAVE HIS SON GET SOME. MY NAME AND OFFICE NUMBER PROVIDED.
--- NOTE | 2020-05-21 13:00 | NUR ---
Spoke with Simon. He plans on dc to home this afternoon. He is aware of the diet he needs to follow. He has called his son to pick him up. Denies any needs to go home. Son will see him up to 3 times per day.
--- NOTE | 2020-05-21 13:50 | NUR ---
Pt. vitals taken and charted. I&O's charted.
--- NOTE | 2020-05-21 15:05 | NUR ---
DISCHARGE INSTRUCTIONS GIVEN TO PT, VEBALIZES UNDERSTANDING OF MEDICATIONS, FOLLOW UP APPOINTMENT SCHEDULED, REVIEWED DIET AND OPTIONS GIVEN, PHOTOS GIVEN. DENIES ANY QUESTIONS OR CONCERNS, STATES SON WILL BE HERE TO PICK HIM UP AROUND 2:30. IV DC'D INTACT AT THIS TIME.
--- NOTE | 2020-05-21 16:40 | PATH ---
[facility] [address], [place] [address] Signed SPECIMEN(S): A DUODENUM SPECIMEN(S): B ANTRUM/PYLORUS SPECIMEN(S): C DISTAL ESOPHAGUS SPECIMEN(S): D MIDDLE ESOPHAGUS SPECIMEN(S): E MIDDLE ESOPHAGUS SPECIMEN SOURCE: A. DUODENUM B. ANTRUM/PYLORUS C. DISTAL ESOPHAGUS D. MIDDLE ESOPHAGUS E. MIDDLE ESOPHAGUS CLINICAL HISTORY: Esophageal obstruction; difficulty swallowing, duodenitis, gastritis, no signs of stricture, hiatal hernia. MICROSCOPIC DESCRIPTION: Histologic sections of all submitted blocks are examined by light microscopy. These findings, together with the gross examination, support the pathologic diagnosis. FINAL PATHOLOGIC DIAGNOSIS: A. Duodenum, biopsy: - Duodenal mucosa with Elliott's gland hyperplasia, reactive epithelial changes, and focal active inflammation, suggestive of peptic duodenitis. - Negative for Helicobacter organisms on HE stain. - Negative for dysplasia or malignancy. B. Stomach, antrum, biopsy: - Antral mucosa with reactive gastropathy. - Negative for Helicobacter organisms on HE stain. - Negative for dysplasia or malignancy. C. Esophagus, distal, biopsy: - Squamous mucosa with reactive changes. - No increased intraepithelial eosinophils. - Negative for fungal organisms on PAS stain, see Comment. - Negative for intestinal metaplasia, dysplasia, or malignancy. D. Esophagus, middle, biopsy: - Squamous mucosa with chronic inflammation and reactive changes, suggestive of reflux esophagitis. - No increased intraepithelial eosinophils. - Negative for intestinal metaplasia, dysplasia, or malignancy. PATIENT NAME: ROBBIE LARRY PATHOLOGY DATE OF : 40 REPORT #: [id number] PHYSICIAN: TIANA PATHOLOGY PCP: KI HERNANDEZ MD REPORT IS CONFIDENTIAL AND NOT TO BE RELEASED WITHOUT AUTHORIZATION [facility] [address], [place] [address] Signed E. Esophagus, middle, biopsy: - Squamous mucosa with minimal chronic inflammation and reactive changes. - No increased intraepithelial eosinophils. - Negative for intestinal metaplasia, dysplasia, or malignancy. COMMENT: Regarding specimen C: A PAS/D stain (with appropriately staining controls) is negative for fungal organisms. NAL:cml:C2NR GROSS DESCRIPTION: Five specimens are received in five containers, labeled "RC." A. The specimen, labeled "RC," and designated on the requisition "duodenum biopsy," is received in formalin and consists of two fragments of pink-xavier tissue (0.5 x 0.1 x 0.1 cm). The specimen is submitted entirely in cassette (A1). B. The specimen, labeled "RC," and designated on the requisition "antrum/pyloric biopsy," is received in formalin and consists of three fragments of pink-xavier tissue (0.6 x 0.3 x 0.3 cm in aggregate). The specimen is submitted entirely in cassette (B1). C. The specimen, labeled "RC," and designated on the requisition "esophagus biopsy," is received in formalin and consists of two fragments of white-xavier tissue (0.5 x 0.3 x 0.1 cm in aggregate). The specimen is submitted entirely in cassette (C1). D. The specimen, labeled "RC," and designated on the requisition "middle esophagus biopsy," is received in formalin and consists of one fragment of white-xavier tissue (0.3 x 0.3 x 0.1 cm). The specimen is submitted entirely in cassette (D1). E. The specimen, labeled "RC," and designated on the requisition "middle esophagus biopsy," is received in formalin and consists of four fragments of white-xavier tissue (0.7 x 0.7 x 0.2 cm in aggregate). The specimen is submitted entirely in cassette (E1). AC (under the direct supervision of a pathologist) The Gross Description was prepared using a voice recognition system. The report was reviewed for accuracy; however, sound-alike word errors, addition and/or deletions may occur. If there is any question about this report, please contact Client Services. PERFORMING LABORATORY: The technical component was performed by [facility] Alex Araiza, PATIENT NAME: ROBBIE LARRY PATHOLOGY DATE OF : 40 REPORT #: [id number] PHYSICIAN: TIANA TANG PCP: KI HERNANDEZ MD REPORT IS CONFIDENTIAL AND NOT TO BE RELEASED WITHOUT AUTHORIZATION [facility] [address] [facility] [place], [place] [address] Signed VANIA [place] [address] (International Exchange Coordinator: Carolyn Larose MD; CLIA# [id number]). Professional interpretation was performed by [facility], [address] [address] (CLIA# [id number]). Diagnostician: Jessica Jarvis MD Pathologist Electronically Signed 05/21/2020 Copies: ~ PATIENT NAME: ROBBIE LARRY PATHOLOGY DATE OF : 40 REPORT #: [id number] PHYSICIAN: TIANA TANG PCP: KI HERNANDEZ MD REPORT IS CONFIDENTIAL AND NOT TO BE RELEASED WITHOUT AUTHORIZATION
== END 2020-05-21 15:20 | disposition home or self-care (01) | DRG 395 ==
LOC: ED 20:39 → MS 20:41
PROVIDERS: ADMIT Surgery
PROC: 0DB38ZX Excision of Lower Esophagus, Via Natural or Artificial Opening Endoscopic, Diagnostic (ICD-10-PCS; principal; 2020-05-20)
PROC: 0DB78ZX Excision of Stomach, Pylorus, Via Natural or Artificial Opening Endoscopic, Diagnostic (ICD-10-PCS; 2020-05-20)
PROC: 0DB28ZX Excision of Middle Esophagus, Via Natural or Artificial Opening Endoscopic, Diagnostic (ICD-10-PCS; 2020-05-20)
DX: T18.128A Food in esophagus causing other injury, initial encounter (principal); I69.991 Dysphagia following unspecified cerebrovascular disease; R13.10 Dysphagia, unspecified; I10 Essential (primary) hypertension; Z95.5 Presence of coronary angioplasty implant and graft
CPT/HCPCS: 71045; 74230; 80053; 85025; 99153; 99284-25; G0500; J2250; J3010; J7121

== ENCOUNTER 2020-08-06 15:28 | Emergency (ER) | payer MEDICARE, OTHER ==
[~2020-08-06] VITALS: Ht 175.3 cm; Wt 70.3 kg
[~2020-08-06 15:28] MED LIST changes: +FLONASE ALLERG9.9 ML NAS; +LOSARTAN POTASS50 MG PO; +MECLIZINE HCL12.5 MG PO; +PANTOPRAZOLE SO40 MG PO
--- OUTSIDE RECORDS SUMMARY | 2020-08-06 15:30 | XMS ---
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 - Has Care Guidelines CARE PROVIDERS KI HERNANDEZ Internal Medicine 03/18/2020-Current PHONE: [phone] ERIKA BOO Internal Medicine: Pulmonary Disease 10/16/2019-Current PHONE: Unknown Radha has no Care Guidelines for this patient. Care History Medical/Surgical 05/19/2020 [facility] Patient admitted for observation.\T\nbsp; Has scheduled follow up with PCP Dr. Hernandez on 03/18/2020 [facility] Patient has follow up with Dr. Hernandez on 03/25/2020 10/16/2019 [facility] Patient admitted, has follow up with Dr. Meehan on 10/22/2019. [facility] MO[facility] TOTAL 6 NOTE: Visits indicate total known visits. ED/UCC VISIT TRACKING (12 MO.) 08/06/2020 15:28 [facility] [place] TYPE: Emergency COMPLAINT: - DIFFICULTY SWALLOWING 05/18/2020 20:40 [facility] [place] TYPE: Emergency COMPLAINT: - DIFFICULTY SWALLOWING 03/17/2020 19:13 [facility] TYPE: Emergency COMPLAINT: - HIGH BP DIAGNOSES: - Essential (primary) hypertension - Other [facility] (current[facility] drug therapy - Personal history of transient ischemic attack (TIA), and cerebral infarction without residual deficits - Allergy status to penicillin 12/23/2019 16:15 [facility] TYPE: Emergency DIAGNOSES: 0. EMS DIZZINESS 10/16/2019 00:05 [facility] TYPE: Emergency COMPLAINT: - HEADACHE/BALANCE ISSUES 08/11/2019 00:36 [facility] DIAGNOSES: - Bradycardia, unspecified - Dizziness - Difficulty in walking, not elsewhere classified - Personal history of transient ischemic attack (TIA), and cerebral infarction without residual deficits - Ataxia, unspecified - Weakness - Hypertension - Dizziness and giddiness - Hyperlipidemia, unspecified INPATIENT VISIT TRACKING (12 MO.) 05/20/2020 18:26 [facility] [place] TYPE: Medical Surgical COMPLAINT: - ESOPHAGEAL OBSTRUCTION DIAGNOSES: - Presence of coronary angioplasty implant and graft - Dysphagia following unspecified cerebrovascular disease - Dysphagia, unspecified - Essential (primary) hypertension - Dysphagia, unspecified - Food in esophagus causing other injury, initial encounter - Essential (primary) hypertension - Presence of coronary angioplasty implant and graft - Dysphagia following unspecified cerebrovascular disease 11/07/2019 13:12 [facility] TYPE: Surgery DIAGNOSES: 0. LAPAROSCOPIC G TUBE PLACEMENT CPT UNK FAILURE TO TH 0. LAP G TUBE PLACEMENT FAILURE TO THRIVE 10/16/2019 10:[address] 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 - Ataxia, unspecified - predatory animal exterminator (current) use of antithrombotics/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 - Essential (primary) hypertension - Prediabetes - Ataxia, unspecified - Diplopia - Unspecified atherosclerosis of [place] arteries of extremities, other extremity - Prediabetes - NIHSS score 0 - predatory animal exterminator (current) use of antithrombotics/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 - Hyperlipidemia, unspecified - Hyperlipidemia, unspecified - Essential (primary) hypertension - Cerebral infarction, unspecified - NIHSS score 0 - Allergy status to penicillin - Brain stem stroke syndrome - Other [place] [facility] (current) drug therapy - Dizziness and giddiness - Allergy status to penicillin - Internuclear ophthalmoplegia, 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
[2020-08-06] MEDS ORDERED: COZAAR25 MG PO (15:41)
== END 2020-08-06 18:23 | disposition home or self-care (01) ==
LOC: ED 15:28
DX: R13.10 Dysphagia, unspecified (principal)
CPT/HCPCS: 74230; 80053; 85025; 93005; 93010; 99284-25

== ENCOUNTER 2020-08-13 13:53 | Emergency (ER) | payer MEDICARE, OTHER ==
[~2020-08-13] VITALS: Ht 175.3 cm; Wt 67.5 kg
[~2020-08-13 13:53] MED LIST changes: +COZAAR25 MG PO
--- OUTSIDE RECORDS SUMMARY | 2020-08-13 13:56 | XMS ---
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 Care History Medical/Surgical 05/19/2020 [facility] Patient admitted for observation.\T\nbsp; Has scheduled follow up with PCP Dr. Hernandez on 03/18/2020 [facility] Patient has follow up with Dr. Hernandez on 03/25/2020 10/16/2019 [facility] Patient admitted, has follow up with Dr. Meehan on 10/22/2019. E.D. VISIT COUNT (12 MO.) 5 [facility] TOTAL 6 NOTE: Visits indicate total known visits. ED/UCC VISIT TRACKING (12 MO.) 08/13/2020 13:53 [facility] [place] TYPE: Emergency COMPLAINT: - DIZZINESS 08/06/2020 15:28 [facility] [place] TYPE: Emergency COMPLAINT: - DIFFICULTY SWALLOWING DIAGNOSES: - Dysphagia, unspecified 05/18/2020 20:40 [facility] [place] TYPE: Emergency COMPLAINT: - DIFFICULTY SWALLOWING 03/17/2020 19:13 [facility] [place] TYPE: Emergency COMPLAINT: - HIGH BP DIAGNOSES: - Essential (primary) hypertension - Other [facility] (current) drug therapy - Personal history of transient ischemic attack (TIA), and cerebral infarction without residual deficits - Allergy status to penicillin 12/23/2019 16:15 [facility] TYPE: Emergency DIAGNOSES: 0. 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 - Ataxia, unspecified - 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/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 - Essential (primary) hypertension - Prediabetes - Ataxia, unspecified - Diplopia - Unspecified atherosclerosis of [place] arteries of extremities, other extremity - Prediabetes - NIHSS score 0 - retirement (current) use of antithrombotics/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 - Hyperlipidemia, unspecified - Hyperlipidemia, unspecified - Essential (primary) hypertension - Cerebral infarction, unspecified - NIHSS score 0 - Allergy status to penicillin - Brain stem stroke syndrome - Other [facility] (current) drug therapy - Dizziness and giddiness - Allergy status to penicillin - Internuclear ophthalmoplegia, left eye - Brain stem stroke syndrome - Dizziness and giddiness [email or web address]
== END 2020-08-13 17:25 | disposition home or self-care (01) ==
LOC: ED 13:53
DX: R42 Dizziness and giddiness (principal); R53.1 Weakness; I10 Essential (primary) hypertension; Z86.73 Personal history of transient ischemic attack (TIA), and cerebral infarction without residual deficits; Z88.0 Allergy status to penicillin; Z79.899 Other long term (current) drug therapy; Z79.82 Long term (current) use of aspirin
CPT/HCPCS: 80053; 85025; 99284; J7030

== ENCOUNTER 2020-08-26 06:02 | Day surgery (SDC) | payer MEDICARE, OTHER ==
[~2020-08-26] VITALS: Ht 175.3 cm; Wt 70.5 kg
--- NOTE | 2020-08-26 09:14 | NUR ---
08/26/20 0914 Socorro Mcpherson 0838 PT ARRIVED IN PACU NON RESPONSIVE TO NOXIOUS STIMULI WITH OPA IN PLACE. 0852 PT REACTIVE. OPA REMOVED. SMALL ABRASION TO UPPER LIP NOTED ON ARRIVAL. ANESTHESIA AWARE. 0855 PT COUGHING AND RN SUCTIONING PT'S PLEGM.
--- NOTE | 2020-08-26 09:17 | NUR ---
PT ALERT, ORIENTED AND SUPPORTED BY HIS SON YECENIA. PT HAS HAD PREVIOUS EGD, SHARED THAT HE HAS HAD DIFFICULTY SWALLOWING. ALL QUESTIONS ASKED ANSWERED. PT REQUESTED PRAYER, YECENIA SHARED THAT THIS YEAR HAS BEEN DIFFICULT ON HIS FAMILY AND SHARED EACH ISSUE. GAVE COMFORT AND WILL FOLLOW
--- NOTE | 2020-08-26 09:38 | NUR ---
PT IS BACK TO DS FROM PACU. HE ARRIVES WITH SUCTION IN PLACE, ABLE TO SUCTION HIMSELF WITHOUT ISSUE. WATER ON BEDSIDE TABLE. CALL LIGHT WITHIN REACH. NO ADDITIONAL NEEDS AT THIS TIME.
--- NOTE | 2020-08-26 10:41 | NUR ---
PT IS ABLE TO VOID USING A URINAL. HE REPORTS NOT WANTING TO GO HOME YET. HE HAS FAILED TO TRY AND DRINK ANY WATER, HE IS ENCOURAGED. CALL LIGHT WITHIN REACH. NO ADDITIONAL NEEDS.
--- NOTE | 2020-08-26 12:51 | NUR ---
HERVE 1230: PT IS DOING WELL, REPORTS HE IS STILL FEELING A BIT LIGHTHEADED. A CONVERSATION IS HAD WITH HIS SON, HIS SON STATES HIS MOM IS COMING UP FOR AN APPOINTMENT AT 1300 AND WOULD LIKE TO TAKE HIS DAD HOME AFTER THAT. I AM AGREEABLE TO THIS PLAN.
--- NOTE | 2020-08-26 13:49 | NUR ---
PT REPORTS THAT HE FEELS LIKE HE READY TO GO HOME. HE GETS HIMSELF DRESSED.
--- NOTE | 2020-08-28 15:39 | OR ---
[facility] [address], [place] [address] Signed DATE OF OPERATION: 08/26/2020 SURGEON: Gerber Mendoza MD PREOPERATIVE DIAGNOSES: 1. Dysphagia without overt esophageal stricture. 2. Complex history of cardiovascular disease including history of brainstem cerebrovascular accident in past. POSTOPERATIVE DIAGNOSIS: Possible distal esophageal stricture at gastroesophageal junction, questionable similar finding mid esophagus. PROCEDURES: 1. Esophagogastroduodenoscopy with biopsy of duodenum. 2. Balloon dilation of distal esophageal stricture and midesophageal esophagus to 20 mm with PET balloon dilator (50 mmHg sequentially applied). ANESTHESIA: General endotracheal; Gerber Church CRNA INDICATIONS: This 80-year-old white man is considered ASA for anesthesia classification and was seen by me on May 19, 2020 with perception of food impaction. He underwent upper endoscopy, which showed no sign of persistent food impaction, though he has had difficulty with swallowing all along. He has a complex past medical history, which does include cerebrovascular accident of the brainstem. He has had bilateral carotid endarterectomy and coronary artery bypass grafting greater than 11 years ago. A more recent echocardiogram shows an ejection fraction of 70%. He did undergo a video esophagram under my direction, which showed no sign of specific stricture, but did confirm a small hiatal hernia and no clear evidence of esophageal dysphagia. He did have some laryngeal penetration (aspiration). He is here at this time to undergo upper endoscopy and dilation as an empiric effort of improving his dysphagia problem. The risks of bleeding, infection, perforation, and most importantly failure to improve or cure his problem was reviewed with the patient and his son, Tera. Understanding this, they wished to proceed. FINDINGS: General endotracheal anesthesia was advised by the sustainment logistics analyst, on that basis it was Electronically Signed By: GERBER MENDOZA MD 08/28/20 1539 PATIENT NAME: ROBBIE LARRY OPERATIVE REPORT DATE OF : 40 REPORT #: [id number] PHYSICIAN: GERBER MENDOZA MD PCP: KI HERNANDEZ MD REPORT IS CONFIDENTIAL AND NOT TO BE RELEASED WITHOUT AUTHORIZATION [facility] [address], [place] [address] Signed performed. Upper endoscopy confirmed mild low-grade angulation deformity of the GE junction, not typical stricture per se. The mid esophagus had no dense stricture, but did have some narrowing, for which dilation was applied there and at the GE junction. As regards, the stomach was normal except for findings on retroflexed view of the hiatal hernia. The pylorus was normal. The duodenum showed chronic inflammation, it was biopsied. Esophageal dilation was undertaken 250 mmHg pressure, sequentially applied per manufacture's instructions with PET balloon dilator 20 mm in size. Completion endoscopy showed some mucosal disruption in the distal esophagus, no sign of complication or other issue. DESCRIPTION OF PROCEDURE: The patient was brought to the operating room, given a general endotracheal anesthetic and placed in lateral decubitus position. A bite block was placed. An Olympus video upper endoscope was passed into the hypopharynx. Good position of the ET tube and the trachea was noted. The scope was easily passed into the esophagus. Esophagus then examined. There was no evidence of retained food or anything of that sort and no concentric rings of the esophagus (felinization). The scope was passed to the distal esophagus, where slight angulation deformity and mild chronic inflammation was noted. The scope was passed into the stomach without impediment. Rugal folds appeared normal. Antrum was normal. Pylorus was normal. Scope was passed through the pylorus into the duodenum. Duodenum had inflammatory change, biopsies were obtained. The scope was withdrawn and retroflexed view undertaken, showed a small hiatal hernia. There was no sign of neoplasm. The scope was withdrawn to the distal esophagus and close examination undertaken. There was not a distinct stricture per se. Mindful of some benefit often of esophageal dilation despite the lack of overt stricture, dilation was considered appropriate. A PET balloon dilator was passed down the channel of the scope and positioned across the GE junction. It was dilated sequentially first with 25 mmHg pressure with a 2 minute waiting period, followed by 38 mmHg pressure, and ultimately 50 mmHg pressure. All of them assisting in at least 2 minutes of dilation time. The balloon was deflated and withdrawn to the mid esophagus, where another area not strictly considered a stricture, but somewhat narrow, where repeat dilation was undertaken with the same technique. The balloon and unit were explanted in continuity after deflation of the balloon. The balloon was then removed and reintroduction of scope undertaken. Examination showed no sign of complication, there was a mucosal disruption at the GE junction as anticipated and optimally appearing. The midesophagus had no change in its appearance, mostly suggestive of that, there was no stricture in fact. The scope was removed. The patient was ultimately extubated and taken to the recovery room in good condition. Electronically Signed By: GERBER MENDOZA MD 08/28/20 1539 PATIENT NAME: ROBBIE LARRY OPERATIVE REPORT DATE OF : 40 REPORT #: [id number] PHYSICIAN: GERBER MENDOZA MD PCP: KI HERNANDEZ MD REPORT IS CONFIDENTIAL AND NOT TO BE RELEASED WITHOUT AUTHORIZATION [facility] [address] [place] [address] Signed CONCLUDING DIAGNOSIS: Dilation of the distal esophagus and mid esophagus with evidence of endoscopic benefit in the GE junction. We will await clinical response. In the meantime, he will be maintained with Protonix. He is advised for a soft diet for the next 24 hours more substantial food well chewed thereafter. We will see him back in about eight weeks in the office and review his progress. MD MINESH Ayoub/TRELLL /[id number] cc: Ki Hernandez MD Copies: KI HERNANDEZ MD ~ Electronically Signed By: GERBER MENDOZA MD 08/28/20 1539 PATIENT NAME: ROBBIE LARRY OPERATIVE REPORT DATE OF : 40 REPORT #: [id number] PHYSICIAN: GERBER MENDOZA MD PCP: KI HERNANDEZ MD REPORT IS CONFIDENTIAL AND NOT TO BE RELEASED WITHOUT AUTHORIZATION
--- NOTE | 2020-08-28 17:37 | PATH ---
[facility] [address] [place], [place] [address] Signed SPECIMEN(S): A DUODENAL BIOPSY SPECIMEN SOURCE: A. DUODENAL BIOPSY CLINICAL HISTORY: Dysphagia. Post Op: Distal esophageal stricture. MICROSCOPIC DESCRIPTION: Histologic sections of all submitted blocks are examined by light microscopy. These findings, together with the gross examination, support the pathologic diagnosis. FINAL PATHOLOGIC DIAGNOSIS: Duodenal biopsy: - Benign duodenal mucosa, negative for specific diagnostic abnormality. JVR:cml:C2NR GROSS DESCRIPTION: The specimen, labeled "Robbie Mccarthy, #1," and designated on the requisition "duodenum biopsy," is received in formalin and consists of two xavier soft tissue fragment(s) that measure 0.2 and 0.3 cm in greatest dimension. The specimen is entirely submitted in cassette (A1). FB (under the direct supervision of a pathologist) The Gross Description was prepared using a voice recognition system. The report was reviewed for accuracy; however, sound-alike word errors, addition and/or deletions may occur. If there is any question about this report, please contact Client Services. PERFORMING LABORATORY: The technical component was performed by [facility], [address] [place] [address] (Manager Process: Carolyn Larose MD; CLIA# [id number]). Professional interpretation was performed by [facility], [place] [address] (Manager Process: Marvin Alvarado M.D.). Diagnostician: Brodie Kenney MD Pathologist Diagnostician: Marvin Alvarado MD Pathologist Electronically Signed 08/28/2020 PATIENT NAME: ROBBIE MCCARTHY PATHOLOGY DATE OF : 40 REPORT #: [id number] PHYSICIAN: TIANA PATHOLOGY PCP: KI HERNADNEZ MD REPORT IS CONFIDENTIAL AND NOT TO BE RELEASED WITHOUT AUTHORIZATION [address] [address] Signed Copies: ~ PATIENT NAME: ROBBIE MCCARTHY PATHOLOGY DATE OF : 40 REPORT #: [id number] PHYSICIAN: TIANA PATHOLOGY PCP: KI HERNANDEZ MD REPORT IS CONFIDENTIAL AND NOT TO BE RELEASED WITHOUT AUTHORIZATION
== END 2020-08-26 13:55 | disposition home or self-care (01) ==
LOC: DS 06:02 → OPS 06:02 → DS 11:15 → OPS 11:15
PROVIDERS: ATTEND Surgery
PROC: 0D738ZZ Dilation of Lower Esophagus, Via Natural or Artificial Opening Endoscopic (ICD-10-PCS; 2020-08-26)
PROC: 0DB98ZX Excision of Duodenum, Via Natural or Artificial Opening Endoscopic, Diagnostic (ICD-10-PCS; principal; 2020-08-26 06:45)
DX: K22.2 Esophageal obstruction (principal); K44.9 Diaphragmatic hernia without obstruction or gangrene; I10 Essential (primary) hypertension; K21.9 Gastro-esophageal reflux disease without esophagitis; J44.9 Chronic obstructive pulmonary disease, unspecified; Z88.0 Allergy status to penicillin; Z79.899 Other long term (current) drug therapy; Z79.82 Long term (current) use of aspirin; Z79.01 Long term (current) use of anticoagulants
CPT/HCPCS: 88305; C1726; J0330; J2370; J2704; J7121

== ENCOUNTER 2020-10-30 06:30 | Day surgery (SDC) | payer MEDICARE, OTHER ==
[~2020-10-30] VITALS: Ht 175.3 cm; Wt 68.0 kg
--- NOTE | 2020-10-30 08:13 | NUR ---
10/30/20 0813 Jennifer Mejia 0758-PATIENT ARRIVED TO PACU ON 3L NC NONAROUSABLE. RN HOLDING AIRWAY TO MAINTAIN OPEN AIRWAY. IVF INFUSING. SR. ABDOMEN SOFT. 0801-PATIENT MAINTAING OWN AIRWAY. NOT FOLLOWING COMMANDS AT THIS TIME. 0808-PATIENT AROUSING EYES CLOSED STATES "I NEED TO SPIT" COUGHING SUCTIONED THICK SPUTUM. PATIENT ENCOURAGED TO TAKE DEEP BREATHS. 0812-PATIENT CONTINUING TO CLEAR THROAT NEEDING TO SPIT PATIENT SUCTIONED.
--- NOTE | 2020-10-30 09:02 | NUR ---
SON HERE WENT TO CAR. PT SPITTING JAMIE UP.
--- NOTE | 2020-10-30 09:42 | NUR ---
PT WAS TAKEN FOR EGD. SON YECENIA REMAINED IN RM. SON CONCERNED ABOUT PT'S DIFFICULTY SWALLOWING AND HOPES THIS WILL HELP. YECENIA ALSO SHARED THAT HIS FAMILY IS GRIEVING THE VERY RECENT LOSS OF HIS MOTHER, AND HOW THIS IS ALSO EFFECTING PT. GAVE ENCOURAGEMENT, ALSO COVERED COVID VACCINATION INFO AND QUESTIONS HE HAD REGARDING. WILL FOLLOW
--- NOTE | 2020-10-30 10:16 | OR ---
[facility] [address], [place] [address] Signed DATE OF OPERATION: 10/30/2020 SURGEON: Gerber Mendoza MD PREOPERATIVE DIAGNOSES: 1. Persistent dysphagia. 2. History of balloon dilation, August 26, 2020, uncertain benefit. 3. History of cerebrovascular accident with post event significant dysphagia requiring PEG tube. 4. Video esophagram showing no evidence of obvious dysmotility, but known hiatal hernia. POSTOPERATIVE DIAGNOSES: 1. Persistent dysphagia. 2. History of balloon dilation, August 26, 2020, uncertain benefit. 3. History of cerebrovascular accident with post event significant dysphagia requiring PEG tube. 4. Video esophagram showing no evidence of obvious dysmotility, but known hiatal hernia. PROCEDURES: 1. Esophagogastroduodenoscopy. 2. [place] over the wire sequential dilation (36, 45, 51-Botswanan). 3. Surgeon-directed fluoroscopy. ANESTHESIA: Intravenous sedation, propofol infusion; Sasha Mccullough CRNA. INDICATIONS: This 80-year-old white man is a patient of Dr. Hernandez. He has a history of cerebrovascular accident a year ago requiring a rehabilitation therapy and known to have significant dysphagia at that time. A PEG tube was required. The patient has had relatively good recovery from the stroke, but has significant dysphagia mostly related to solids and "coarse food." He underwent balloon dilation by me on August 26, 2020 having been seen in the ER a few weeks prior to that with a sensation of food stuck in the esophagus, though emergency upper endoscopy showed no sign of impaction. There was no discrete stricture. He has undergone video esophagram, which did not show obvious dysmotility or gross stricture. His dilation on August 26 was of marginal benefit. He continues to take a PPI medication, Prilosec. As he does have persistent dysphagia and known reflux and without gross dysmotility, I have offered [place] over the wire esophageal dilation instead of balloon dilation. He has significant medical comorbidities, currently is on aspirin and Plavix, though has been withheld from both Electronically Signed By: GERBER MENDOZA MD 10/30/20 1016 PATIENT NAME: ROBBIE LARRY OPERATIVE REPORT DATE OF : 40 REPORT #: [id number] PHYSICIAN: GERBER MENDOZA MD PCP: KI HERNANDEZ MD REPORT IS CONFIDENTIAL AND NOT TO BE RELEASED WITHOUT AUTHORIZATION [facility] [address], [place] [address] Signed for the past 48 hours. He is to undergo esophageal dilation with upper endoscopy under fluoroscopic control at this time. The risks of bleeding, infection, perforation, and importantly failure to cure his symptoms was reviewed in detail. He understands and wished to proceed. FINDINGS: There is no distinct stricture or neoplasm. He did have a hiatal hernia. There was no gastric outlet obstruction. Duodenum was normal. Hiatal hernia was certainly demonstrated. Sequential [place] over the wire dilation was undertaken up to 51-Botswanan. A plan for using the 60-Botswanan dilator was became clear that his small oropharynx and teeth and so forth would not readily accommodate the dilator without high hazard of problem and therefore, dilation was left at 51-Botswanan. DESCRIPTION OF PROCEDURE: The patient was brought to the surgical endoscopy suite and placed in lateral decubitus position. Fluoroscopic control was arranged and the patient was given intravenous sedation with propofol infusional technique with full cardiopulmonary monitoring. The Olympus video upper endoscope was passed into the hypopharynx. The vocal cords appeared normal. There was no sign of proximal anatomic abnormality. The scope was advanced to the esophagus throughout its length that appeared reasonably normal, mildly chronically inflamed, but with no distinct stricture. The scope was passed into the stomach easily. There was no sign of retained food nor sign of bilious fluid. Rugal folds were normal. Antrum was normal. Pylorus was normal. Scope was passed through into the duodenum, which was also normal. The scope was withdrawn to the stomach and retroflexed view undertaken showed a moderate-sized hiatal hernia. The scope was repositioned in the antrum and the [place] over the wire passed through the operating channel of the scope down to the pylorus and the wire stabilizing the scope carefully withdrawn. Fluoroscopy was used to confirm the position of the wire. Sequential dilation was then undertaken with Saudi Arabian over the wire dilating devices using the first 36-Botswanan, a 45-Botswanan and ultimately 51-Botswanan dilator, which was well lubricated and passed under fluoroscopic control. A 60-Botswanan dilator was anticipated; however, the angle of the hypopharynx and his small palate, teeth and so forth precluded safe dilation I felt and therefore I did not proceed without one. The scope was reintroduced into the esophagus. There was no evidence of tear or injury in any way. Stomach was normal. There was no blood. The scope was removed. The patient was taken to the recovery room in good condition. CONCLUDING DIAGNOSIS: Sequential dilation with Saudi Arabian over the wire and dilator system. We will wait to see if he is improving in dysphagia. I still suspect the motility problem is the underlying problem of rather than anatomic stricture. We will advise soft diet for the next 48 Electronically Signed By: GERBER MENDOZA MD 10/30/20 1016 PATIENT NAME: ROBBIE LARRY OPERATIVE REPORT DATE OF : 40 REPORT #: [id number] PHYSICIAN: GERBER MENDOZA MD PCP: KI HERNANDEZ MD REPORT IS CONFIDENTIAL AND NOT TO BE RELEASED WITHOUT AUTHORIZATION [place] [id number] [place] [address] Signed hours. He should continue with his PPI medication. He will see us back in about 8 weeks, sooner if there are problems. MD MINESH Ayoub/GISELLE /[id number] cc: Ki Hernandez MD Copies: KI HERNANDEZ MD ~ Electronically Signed By: GERBER MENDOZA MD 10/30/20 1016 PATIENT NAME: ROBBIE LARRY OPERATIVE REPORT DATE OF : 40 REPORT #: [id number] PHYSICIAN: GERBER MENDOZA MD PCP: KI HERNANDEZ MD REPORT IS CONFIDENTIAL AND NOT TO BE RELEASED WITHOUT AUTHORIZATION
--- NOTE | 2020-10-30 11:13 | NUR ---
0930 ASSISTING WITH GETTING DRESSED VOIDS 300MLS URINE PER URIANL. PT THEN STATES HES TOO DIZZY TO STAND UP. ALLOW TO WAIT LONGER.
--- NOTE | 2020-10-30 11:14 | NUR ---
0950 STATES HES READY TO STAND UP AND GET INTO WC. SON HERTE.
--- NOTE | 2020-10-30 11:23 | NUR ---
SON STATES PT IS DIZZY MOST OF TIME AND COUGHS A LOT OF PHELM SO THIS IS NOT NEW.
== END 2020-10-30 09:50 | disposition home or self-care (01) ==
LOC: DS 06:30 → OPS 06:30 → DS 06:45 → OPS 09:50
PROVIDERS: ATTEND Surgery
PROC: 0D758ZZ Dilation of Esophagus, Via Natural or Artificial Opening Endoscopic (ICD-10-PCS; principal; 2020-10-30 06:45)
DX: R13.19 Other dysphagia (principal); K21.9 Gastro-esophageal reflux disease without esophagitis; K44.9 Diaphragmatic hernia without obstruction or gangrene; I10 Essential (primary) hypertension; Z86.73 Personal history of transient ischemic attack (TIA), and cerebral infarction without residual deficits; Z95.1 Presence of aortocoronary bypass graft; Z88.0 Allergy status to penicillin; Z79.02 Long term (current) use of antithrombotics/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; Z79.82 Long term (current) use of aspirin; Z79.899 Other long term (current) drug therapy
CPT/HCPCS: 76000; J2001; J2704; J7121

== ENCOUNTER 2020-11-29 20:14 | Emergency (ER) | payer MEDICARE, OTHER ==
[~2020-11-29] VITALS: Ht 175.3 cm; Wt 67.6 kg
--- OUTSIDE RECORDS SUMMARY | 2020-11-29 20:16 | XMS ---
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 Care History Medical/Surgical 05/19/2020 [facility] Patient admitted for observation.\T\nbsp; Has scheduled follow up with PCP Dr. Hernandez on 03/18/2020 [facility] Patient has follow up with Dr. Hernandez on 03/25/2020 10/16/2019 [facility] Patient admitted, has follow up with Dr. Meehan on 10/22/2019. E.D. VISIT COUNT (12 MO.) 5 MEGAN MartinsDiogo [facility]ters[facility] TOTAL 6 NOTE: Visits indicate total known visits. 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 care registered nurse (current) drug therapy - Personal history of transient ischemic attack (TIA), and cerebral infarction without residual deficits - Dizziness and giddiness - Essential (primary) hypertension 08/06/2020 15:28 [facility] [place] TYPE: Emergency COMPLAINT: - DIFFICULTY SWALLOWING DIAGNOSES: - Personal history of transient ischemic attack (TIA), and cerebral infarction without residual deficits - Dysphagia, unspecified - Other general symptoms and signs 05/18/2020 20:40 [facility] [place] TYPE: Emergency COMPLAINT: - DIFFICULTY SWALLOWING 03/17/2020 19:13 [facility] [place] TYPE: Emergency COMPLAINT: - HIGH BP DIAGNOSES: - Essential (primary) hypertension - Other mcfp (current) drug therapy - Personal history of transient ischemic attack (TIA), and cerebral infarction without residual deficits - Allergy status to penicillin 12/23/2019 16:15 [facility] TYPE: Emergency DIAGNOSES: 0. EMS DIZZINESS INPATIENT VISIT TRACKING (12 MO.) 05/20/2020 18:26 [...] graft - Dysphagia following unspecified cerebrovascular disease [email or web address]
--- NOTE | 2020-11-29 22:27 | EKG ---
[facility] [address] [facility] [place] [address] Signed Sinus rhythm with 1st degree AV block Incomplete right bundle branch block Borderline ECG When compared with ECG of 17-MAR-2020 19:23, premature atrial complexes are no longer present Confirmed by BERNARD CORDON MD ([id number]) on 11/29/2020 10:27:09 PM Electronically Signed By: BERNARD CORDON MD 11/29/20 2227 PATIENT NAME: KENDYROBBIE DANNY Electrocardiogram DATE OF : 40 PHYSICIAN: BERNARD CORDON MD REPORT #: [id number] REPORT IS CONFIDENTIAL AND NOT TO BE RELEASED WITHOUT AUTHORIZATION
== END 2020-11-29 21:11 | disposition home or self-care (01) ==
LOC: ED 20:14
DX: I10 Essential (primary) hypertension (principal); Z86.73 Personal history of transient ischemic attack (TIA), and cerebral infarction without residual deficits; E78.00 Pure hypercholesterolemia, unspecified; Z88.0 Allergy status to penicillin; Z88.8 Allergy status to other drugs, medicaments and biological substances; Z79.899 Other long term (current) drug therapy
CPT/HCPCS: 80053; 83735; 85025; 93005; 93010; 99284-25

== ENCOUNTER 2021-02-16 18:29 | Emergency (ER) | payer MEDICARE, OTHER ==
[~2021-02-16] VITALS: Ht 152.4 cm; Wt 67.6 kg
--- OUTSIDE RECORDS SUMMARY | 2021-02-16 18:34 | XMS ---
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 Care History Medical/Surgical 05/19/2020 [facility] Patient admitted for observation.\T\nbsp; Has scheduled follow up with PCP Dr. Hernandez on 03/18/2020 [facility] Patient has follow up with Dr. Hernandez on 03/25/2020 10/16/2019 [facility] Patient admitted, has follow up with Dr. Meehan on 10/22/2019. E.D. VISIT COUNT (12 MO.) 6 MEGAN Roper TOTAL 6 NOTE: Visits indicate total known visits. 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 [place] [facility]: Emergency COMPLAINT: - DIFFICULTY SWALLOWING DIAGNOSES: - Personal history of transient ischemic attack (TIA), and cerebral infarction without residual deficits - Dysphagia, unspecified - Other general symptoms and signs 05/18/2020 20:40 [facility] [place] TYPE: Emergency COMPLAINT: - DIFFICULTY SWALLOWING 03/17/2020 19:13 [facility] [place] TYPE: Emergency COMPLAINT: - HIGH BP DIAGNOSES: - Essential (primary) hypertension - Other [facility] (current) drug therapy - Personal history of transient ischemic attack (TIA), and cerebral infarction without residual deficits - Allergy status to penicillin INPATIENT VISIT TRACKING (12 MO.) 05/20/2020 18:26 [...] graft - Dysphagia following unspecified cerebrovascular disease [email or web address]
[2021-02-16] MEDS ORDERED: HYDRALAZINE HCL25 MG PO (18:50)
[2021-02-16] MEDS ORDERED: EZETIMIBE10 MG PO (18:50)
== END 2021-02-16 21:05 | disposition home or self-care (01) ==
LOC: ED 18:29
DX: R13.10 Dysphagia, unspecified (principal); I10 Essential (primary) hypertension; E78.00 Pure hypercholesterolemia, unspecified; Z88.0 Allergy status to penicillin; Z88.8 Allergy status to other drugs, medicaments and biological substances; Z79.899 Other long term (current) drug therapy; Z79.82 Long term (current) use of aspirin
CPT/HCPCS: 99283

== ENCOUNTER 2021-04-20 12:32 | Emergency (ER) | payer MEDICARE, OTHER ==
[~2021-04-20] VITALS: Ht 175.3 cm; Wt 67.6 kg
[~2021-04-20 12:32] MED LIST changes: +HYDRALAZINE HCL25 MG PO
--- OUTSIDE RECORDS SUMMARY | 2021-04-20 12:40 | XMS ---
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 Care History Medical/Surgical 05/19/2020 [facility] Patient admitted for observation.\T\nbsp; Has scheduled follow up with PCP Dr. Hernandez on 03/18/2020 [facility] Patient has follow up with Dr. Hernandez on 03/25/2020 10/16/2019 [facility] Patient admitted, has follow up with Dr. Meehan on 10/22/2019. E.D. VISIT COUNT (12 MO.) 6 MEGAN Roper TOTAL 6 NOTE: Visits indicate total known visits. 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 - FDC (current) use of aspirin 11/29/2020 20:14 [facility] [place] TYPE: Emergency COMPLAINT: - HTN, NAUSEA DIAGNOSES: - Essential (primary) hypertension - Personal history of transient ischemic attack (TIA), and cerebral infarction without residual deficits - Other custodial (current) drug therapy - Pure hypercholesterolemia, unspecified - Allergy status to other drugs, medicaments and biological substances - Allergy status to penicillin 08/13/2020 13:53 [facility] [place] TYPE: Emergency COMPLAINT: - DIZZINESS DIAGNOSES: - FDC (current) use of aspirin - Allergy status to penicillin - Weakness - Other custodial (current) drug therapy - Personal history of transient ischemic attack (TIA), and cerebral infarction without residual deficits - Dizziness and giddiness - Essential (primary) hypertension 08/06/2020 15:28 [facility] [place] TYPE: Emergency COMPLAINT: - DIFFICULTY SWALLOWING DIAGNOSES: - Personal history of transient ischemic attack (TIA), and cerebral infarction without residual deficits - Dysphagia, unspecified - Other general symptoms and signs 05/18/2020 20:40 [facility] [place] TYPE: Emergency COMPLAINT: - DIFFICULTY SWALLOWING INPATIENT VISIT TRACKING (12 MO.) 05/20/2020 18:26 [...] graft - Dysphagia following unspecified cerebrovascular disease [id number]
--- NOTE | 2021-04-20 19:58 | EKG ---
[facility] [address] [facility] [place] [address] Signed Sinus rhythm with 1st degree AV block ST elevation, consider anterolateral injury or acute infarct ACUTE SC / STEMI Abnormal ECG When compared with ECG of 29-NOV-2020 20:20, Incomplete right bundle branch block is no longer present Confirmed by GIRISH SHAIKH DO ([id number]) on 04/20/2021 7:58:25 PM Electronically Signed By: GIRISH SHAIKH DO 04/20/211957 PATIENT NAME: ROBBIE LARRY Electrocardiogram DATE OF : 40 PHYSICIAN: GIRISH SHAIKH DO REPORT #: [id number] REPORT IS CONFIDENTIAL AND NOT TO BE RELEASED WITHOUT AUTHORIZATION
== END 2021-04-20 14:35 | disposition short-term general hospital (02) ==
LOC: ED 12:32
DX: I21.3 ST elevation (STEMI) myocardial infarction of unspecified site (principal); Z20.822 Contact with and (suspected) exposure to COVID-19; I10 Essential (primary) hypertension; E78.00 Pure hypercholesterolemia, unspecified; Z87.891 Personal history of nicotine dependence; Z88.0 Allergy status to penicillin; Z88.8 Allergy status to other drugs, medicaments and biological substances; Z79.899 Other long term (current) drug therapy; Z79.82 Long term (current) use of aspirin
CPT/HCPCS: 71045; 80053; 83735; 84484; 85025; 85730; 93005; 93010; 96374; 99285-25; C9803; J1644; U0003

== ENCOUNTER 2021-09-17 12:27 | Emergency (ER) | payer MEDICARE, OTHER ==
[~2021-09-17] VITALS: Ht 175.3 cm; Wt 56.8 kg
--- OUTSIDE RECORDS SUMMARY | 2021-09-17 12:30 | XMS ---
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 Care History Medical/Surgical 05/19/2020 [facility] Patient admitted for observation.\T\nbsp; Has scheduled follow up with PCP Dr. Hernandez on 03/18/2020 [facility] Patient has follow up with Dr. Hernandez on 03/25/2020 10/16/2019 [facility] Patient admitted, has follow up with Dr. Meehan on 10/22/2019. [facility] TOTAL 6 NOTE: Visits indicate total known visits. ED/UCC VISIT TRACKING (12 MO.) 09/17/2021 12:29 [facility] [place] TYPE: Emergency COMPLAINT: - DIFFICULTY SWALLOWING 06/26/2021 19:42 [facility] TYPE: Emergency DIAGNOSES: 0. POSS FB IN THROAT 04/20/2021 15:05 [facility] TYPE: Emergency DIAGNOSES: - STEMI - Dizziness and giddiness - Evaluation Of Abnormal Ekg - Abnormal electrocardiogram [ECG] [EKG] 04/20/2021 12:33 MEGAN [facility] TYPE: Emergency COMPLAINT: - HEAD PAIN/DIZZINESSR DIAGNOSES: - Allergy status to penicillin - Other retirement (current) drug therapy - Personal history of nicotine dependence - Dizziness and giddiness - care home (current) use of aspirin - ST elevation (STEMI) myocardial infarction of unspecified site - Allergy status to other drugs, medicaments and biological substances - Pure hypercholesterolemia, unspecified - Essential (primary) hypertension 02/16/2021 18:30 MEGAN [facility]isen[facility] TYPE: Emergency COMPLAINT: - HARD TIME SWALLOWING DIAGNOSES: - Allergy status to penicillin - Dysphagia, unspecified - Allergy status to other drugs, medicaments and biological substances - Essential (primary) hypertension - Pure hypercholesterolemia, unspecified - Other brush clearer surveying (current) drug therapy - care home (current) use of aspirin 11/29/2020 20:14 [facility] [place] TYPE: Emergency COMPLAINT: - HTN, NAUSEA DIAGNOSES: - Essential (primary) hypertension - Personal history of transient ischemic attack (TIA), and cerebral infarction without residual deficits - Other retirement (current) drug therapy - Pure hypercholesterolemia, unspecified - Allergy status to other drugs, medicaments and biological substances - Allergy status to penicillin INPATIENT VISIT TRACKING (12 MO.) [facility]20[facility]21 [facility]: Internal [facility] DIAGNOSES: - Dizziness and giddiness - Abnormal electrocardiogram [ECG] [EKG] [email or web address]
[2021-09-17] MEDS ORDERED: BUPRENORPHINE1 EAC1 TD (12:52)
== END 2021-09-17 15:22 | disposition home or self-care (01) ==
LOC: ED 12:27
DX: R13.10 Dysphagia, unspecified (principal); K59.00 Constipation, unspecified; I10 Essential (primary) hypertension; E78.00 Pure hypercholesterolemia, unspecified; Z87.891 Personal history of nicotine dependence; Z88.0 Allergy status to penicillin; Z88.8 Allergy status to other drugs, medicaments and biological substances; Z79.899 Other long term (current) drug therapy
CPT/HCPCS: 71260; 80048; 85025; 99284-25; J7030; Q9967

== ENCOUNTER 2022-01-12 12:10 | Emergency (ER) | payer MEDICARE, OTHER ==
[~2022-01-12] VITALS: Ht 175.3 cm; Wt 56.7 kg
[~2022-01-12 12:10] MED LIST changes: +BUPRENORPHINE1 EAC1 TD
--- OUTSIDE RECORDS SUMMARY | 2022-01-12 12:18 | XMS ---
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 Care History Medical/Surgical 09/24/2021 [facility] Patient had a walk in appt on 09/17/2021 with Angeline James that he did not show up for. No further appts scheduled 05/19/2020 [facility] Patient admitted for observation.\T\[facility]; Has scheduled follow up with PCP Dr. Hernandez on 03/18/2020 [facility] Patient has follow up with Dr. Hernandez on 03/25/2020 [facility] VISIT COUNT (12 MO.) 1 [facility] 4 [facility] TOTAL 6 NOTE: Visits indicate total known visits. ED/UCC VISIT TRACKING (12 MO.) 01/12/2022 12:11 [facility] [place] TYPE: Emergency COMPLAINT: - DEHYDRATED, ALTERED MENTAL STATUS 09/17/2021 12:29 MEGAN [facility] TYPE: Emergency COMPLAINT: - DIFFICULTY SWALLOWING DIAGNOSES: - Dysphagia, unspecified - Pure hypercholesterolemia, unspecified - Allergy status to penicillin - Essential (primary) hypertension - Constipation, unspecified - Personal history of nicotine dependence - Allergy status to other drugs, medicaments and biological substances - Other senior living (current) drug therapy 06/26/2021 19:42 [facility] TYPE: Emergency DIAGNOSES: 0. POSS FB IN THROAT 04/20/2021 15:05 [facility] TYPE: Emergency DIAGNOSES: - STEMI - Dizziness and giddiness - Evaluation Of Abnormal Ekg - Abnormal electrocardiogram [ECG] [EKG] 04/20/2021 12:33 MEGAN Briseno TYPE: Emergency COMPLAINT: - HEAD PAIN/DIZZINESSR DIAGNOSES: - Allergy status to penicillin - Other senior living (current) drug therapy - Personal history of nicotine dependence - Dizziness and giddiness - intermediate (current) use of aspirin - ST elevation (STEMI) myocardial infarction of unspecified site - Allergy status to other drugs, medicaments and biological substances - Pure hypercholesterolemia, unspecified - Essential (primary) hypertension 02/16/2021 18:30 [facility] [place] TYPE: Emergency COMPLAINT: - HARD TIME SWALLOWING DIAGNOSES: - Allergy status to penicillin - Dysphagia, unspecified - Allergy status to other drugs, medicaments and biological substances - Essential (primary) hypertension - Pure hypercholesterolemia, unspecified - 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
[2022-01-12] MEDS ORDERED: BAYER CHEWABLE81 MG PO (12:36)
== END 2022-01-12 15:25 | disposition home or self-care (01) ==
LOC: ED 12:10
DX: R53.1 Weakness (principal); I10 Essential (primary) hypertension; I25.10 Atherosclerotic heart disease of native coronary artery without angina pectoris; E78.00 Pure hypercholesterolemia, unspecified; Z87.891 Personal history of nicotine dependence; Z88.0 Allergy status to penicillin; Z88.8 Allergy status to other drugs, medicaments and biological substances; Z79.899 Other long term (current) drug therapy; Z79.82 Long term (current) use of aspirin; Z20.822 Contact with and (suspected) exposure to COVID-19
CPT/HCPCS: 36415; 80053; 81001; 84443; 85025; 85060; 99284; U0003

== ENCOUNTER 2022-02-09 09:59 | Emergency (ER) | payer MEDICARE, OTHER ==
[~2022-02-09] VITALS: Ht 175.3 cm; Wt 56.7 kg
[~2022-02-09 09:59] MED LIST changes: +BAYER CHEWABLE81 MG PO
--- OUTSIDE RECORDS SUMMARY | 2022-02-09 10:02 | XMS ---
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 Care History Medical/Surgical 09/24/2021 [facility] Patient had a walk in appt on 09/17/2021 with Angeline James that he did not show up for. No further appts scheduled 05/19/2020 [facility] Patient admitted for observation.\T\[facility]; Has scheduled follow up with PCP Dr. Hernandez on 03/18/2020 [facility] Patient has follow up with Dr. Hernandez on 03/25/2020 E[facility] VISIT COUNT (12 MO.) 1 [place] [address] [facility] TOTAL 7 NOTE: Visits indicate total known visits. 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 - Other retirement (current) drug therapy - Allergy status to penicillin - Pure hypercholesterolemia, unspecified - Personal history of nicotine dependence - Allergy status to other drugs, medicaments and biological substances - Essential (primary) hypertension - Atherosclerotic heart disease of [place] coronary artery without angina pectoris 09/17/2021 12:29 [facility] TYPE: Emergency COMPLAINT: - DIFFICULTY SWALLOWING DIAGNOSES: - Dysphagia, unspecified - Pure hypercholesterolemia, unspecified - Allergy status to penicillin - Essential (primary) hypertension - Constipation, unspecified - Personal history of nicotine dependence - Allergy status to other drugs, medicaments and biological substances - Other retirement (current) drug therapy 06/26/2021 19:42 [facility] TYPE: Emergency DIAGNOSES: 0. POSS FB IN THROAT 04/20/2021 15:05 [facility] TYPE: Emergency DIAGNOSES: - STEMI - Dizziness and giddiness - Evaluation Of Abnormal Ekg - Abnormal electrocardiogram [ECG] [EKG] 04/20/2021 12:33 [facility] [place] TYPE: Emergency COMPLAINT: - HEAD PAIN/DIZZINESSR DIAGNOSES: - Allergy status to penicillin - Other retirement (current) drug therapy - Personal history of nicotine dependence - Dizziness and giddiness - penitentiary (current) use of aspirin - ST elevation (STEMI) myocardial infarction of unspecified site - Allergy status to other drugs, medicaments and biological substances - Pure hypercholesterolemia, unspecified - Essential (primary) hypertension - Contact with and (suspected) exposure to COVID-19 02/16/2021 18:30 [facility] [place] TYPE: Emergency COMPLAINT: - HARD TIME SWALLOWING DIAGNOSES: - Allergy status to penicillin - Dysphagia, unspecified - Allergy status to other drugs, medicaments and biological substances - Essential (primary) hypertension - Pure hypercholesterolemia, unspecified - Other retirement (current) drug therapy - penitentiary (current) use of aspirin INPATIENT VISIT TRACKING (12 MO.) 04/20/2021 15:05 [facility] Valerie CARO TYPE: Internal Medicine DIAGNOSES: - Dizziness and giddiness - Abnormal electrocardiogram [ECG] [EKG] [id number]
== END 2022-02-09 11:40 | disposition home or self-care (01) ==
LOC: ED 09:59
DX: R13.10 Dysphagia, unspecified (principal); I10 Essential (primary) hypertension; Z86.73 Personal history of transient ischemic attack (TIA), and cerebral infarction without residual deficits; E78.00 Pure hypercholesterolemia, unspecified; Z87.891 Personal history of nicotine dependence; Z88.0 Allergy status to penicillin; Z88.8 Allergy status to other drugs, medicaments and biological substances
CPT/HCPCS: 36415; 80053; 83690; 85025; 85610; 96374; 99284-25; C9113; J7030

== ENCOUNTER 2022-07-31 14:33 | Emergency (ER) | payer MEDICARE, OTHER ==
[~2022-07-31] VITALS: Ht 175.3 cm; Wt 57.3 kg
--- OUTSIDE RECORDS SUMMARY | 2022-07-31 14:36 | XMS ---
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 Care History Medical/Surgical 09/24/2021 [facility] Patient had a walk in appt on 09/17/2021 with Angeline James that he did not show up for. No further appts scheduled 05/19/2020 [facility] Patient admitted for observation.\T\[facility]; Has scheduled follow up with PCP Dr. Hernandez on 03/18/2020 [facility] Patient has follow up with Dr. Hernandez on 03/25/2020 [facility] MO[facility] NOTE: Visits indicate total known visits. ED/UCC VISIT TRACKING (12 MO.) [facility] COMPLAINT: - DEHYDRATION 02/09/2022 10:00 [facility] [place] TYPE: Emergency COMPLAINT: - DIFFICULTY SWALLOWING DIAGNOSES: - Dysphagia, unspecified - Allergy status to other drugs, medicaments and biological substances - Allergy status to penicillin - Pure hypercholesterolemia, unspecified - Essential (primary) hypertension - Personal history of nicotine dependence - Personal history of transient ischemic attack (TIA), and cerebral infarction without residual deficits 01/12/2022 12:11 [facility] [place] TYPE: Emergency COMPLAINT: - DEHYDRATED, ALTERED MENTAL STATUS DIAGNOSES: - Allergy status to penicillin - [facility] (current) use of aspirin - Atherosclerotic heart disease of [place] coronary artery without angina pectoris - Weakness - Allergy status to other drugs, medicaments and biological substances - Pure hypercholesterolemia, unspecified - Other long-term (current) drug therapy - Contact with and (suspected) exposure to COVID-19 - Essential (primary) hypertension - Personal history of nicotine dependence 09/17/2021 12:29 [facility] [place] TYPE: Emergency COMPLAINT: - DIFFICULTY SWALLOWING DIAGNOSES: - Constipation, unspecified - Allergy status to penicillin - Dysphagia, unspecified - Other long-term (current) drug therapy - Personal history of nicotine dependence - Essential (primary) hypertension - Pure hypercholesterolemia, unspecified - Allergy status to other drugs, medicaments and biological substances INPATIENT VISIT TRACKING (12 MO.) No inpatient visits to display in this time frame [id number]
--- NOTE | 2022-08-01 21:30 | EKG ---
[facility] [address] [place] [address] Signed Sinus rhythm with 1st degree AV block Anteroseptal infarct , possibly acute ACUTE TX / STEMI Abnormal ECG When compared with ECG of 20-APR-2021 13:19, Anteroseptal infarct is now present T wave amplitude has increased in Anterior leads Confirmed by Ambar German MD () on 08/01/2022 9:30:40 PM Electronically Signed By: AMBAR GERMAN MD 08/01/22 213 PATIENT NAME: ROBBIE LARRY Electrocardiogram DATE OF : 40 PHYSICIAN: AMBAR GERMAN MD REPORT #: [id number] REPORT IS CONFIDENTIAL AND NOT TO BE RELEASED WITHOUT AUTHORIZATION
== END 2022-07-31 18:37 | disposition home or self-care (01) ==
LOC: ED 14:33
DX: E86.0 Dehydration (principal); J02.9 Acute pharyngitis, unspecified; I10 Essential (primary) hypertension; Z86.73 Personal history of transient ischemic attack (TIA), and cerebral infarction without residual deficits; E78.00 Pure hypercholesterolemia, unspecified; Z87.891 Personal history of nicotine dependence; Z88.0 Allergy status to penicillin; Z91.048 Other nonmedicinal substance allergy status
CPT/HCPCS: 36415; 80053; 81001; 83735; 84484; 85025; 87880; 93005; 93010; 96360; 99284-25; J7030

== ENCOUNTER 2023-03-31 10:10 | Emergency (ER) | payer MEDICARE, OTHER ==
[~2023-03-31] VITALS: Ht 175.3 cm; Wt 59.9 kg
--- OUTSIDE RECORDS SUMMARY | ~2023-03-31 | XMS | Continuity of Care Document ---
Demographics + + + | Address | [address] | | | [place] [address] | + + + | Preferred Language | Unknown | + + + | Marital Status | | + + + | Confucianist Affiliation | Unknown | + + + | Race | White | + + + | Ethnic Group | Not or | + + + Author + + + | Author | [facility] | + + + | Organization | [facility] | + + + | Address | [address] | | | [place] [address] | + + + | Phone | | + + + Care Team Providers + + + + | Care Document Specialist Name | Role | Phone | + + + + Unavailable | Unavailable | + + + + Unavailable | Unavailable | + + + + Allergies and Intolerances + + + + + | date | description | facility | type | + + + + + | (no date) | Mild | [facility] (unknown[facility] | | + + + + + | (no date) | Penicillin | [facility] | (unknown) | | | | Hospital | | + + + + + | (no date) | Penicillin | [facility] | (unknown) | | | | Hospital | | + + + + + | (no date) | Penicillin | [facility] | (unknown) | | | | Hospital | | + + + + + Encounters No information. Functional Status No information. Immunizations No information. Medications No information. Problems + + + + | date | description | facility | + + + + | 2019-10-16 00:00 | Headache | [facility] | + + + + | 2020-03-17 00:00 | Hypertension | [facility] | + + + + | 2020-05-18 00:00 | Foreign body in esophagus | [facility] | + + + + | 2020-08-06 00:00 | Dysphagia | [facility] | + + + + | 2020-11-29 00:00 | Elevated blood pressure | [facility] | | | reading with diagnosis of | | | | hypertension | | + + + + | 2021-04-20 00:00 | ST elevation myocardial | [facility] | | | infarction (STEMI) | | + + + + | 2021-09-17 00:00 | Constipation | [facility] | + + + + | 2022-01-12 00:00 | Weakness | [facility] | + + + + | 2022-02-09 10:00 | Pure hypercholesterolemia, | [facility] | | | unspecified [facility] | + + + + | 2022-02-09 10:00 | Essential (primary) | [facility] | | | hypertension | [facility] | + + + + | 2022-02-09 10:00 | Dysphagia, unspecified | [facility] | | | | [facility] | + + + + | 2022-02-09 10:00 | Personal history of | [facility] | | | transient ischemic attack | [facility] | | | (TIA), and cerebral | | | | infarction without residual | | | | deficits | | + + + + | 2022-02-09 10:00 | Personal history of | [facility] | | | nicotine dependence [facility] | + + + + | 2022-02-09 10:00 | Allergy status to | [facility] | | | penicillin | [facility] | + + + + | 2022-02-09 10:00 | Allergy status to other | [facility] | | | drugs, medicaments and | [facility] | | | biological substances | | + + + + | 2022-10-08 10:03 | UNSTEADINESS ON FEET | [facility] | + + + + | 2022-10-08 10:03 | Encounter for immunization | [facility] | | | | | + + + + | 2023-03-11 13:07 | DEHYDRATION | [facility] | + + + + Procedures No information. Results/Labs +--------+--------+ + +---------+--------+ + | test | date | author | facility | value | unit | | | | | | | | | interpreta | | | | | | | | tion | +--------+--------+ + +---------+--------+ + + + | Result panel 1 | + + + + + + +---------+ + + | (unknown) | (no date) | (unknown) | [facility] | (unknown) | | | [facility] | [facility] | | | | + + + + +---------+ + + + + | Result panel 2 | + + + + + + +---------+ + + | (unknown) | (no date) | (unknown) | [facility]no | [facility]units | (unknown) | | | [facility] | value) | unknown) | | | [facility] | | | | + + + + +---------+ + + + + | Result panel 3 | + + + + + + +---------+ + + | (unknown) | (no date) | (unknown) | [facility] | [facility]units | (unknown) | | [facility] | value) | unknown) | | | | [facility] | | | | + + + + +---------+ + + + + | Result panel 4 | + + + + + + +---------+ + + | (unknown) | (no date) | (unknown) | [facility]no | (units | (unknown) | | | [facility] | value) | unknown) | | | | [facility] | | | | + + + + +---------+ + + + + | Result panel 5 | + + + + + + +---------+ + + | (unknown) | (no date) | (unknown) | [facility]no | (units | (unknown) | | | [facility] | value) | unknown) | | | | [facility] | | | | + + + + +---------+ + + + + | Result panel 6 | + + + + + + +---------+ + + | (unknown) | (no date) | (unknown) | [facility] (no | (units | (unknown) | | | [facility] | value) | unknown) | | | | | [facility] | | | | + + + + +---------+ + + + + | Result panel 7 | + + + + + + +---------+ + + | (unknown) | (no date) | (unknown) | [facility] (no | (units | (unknown) | | | [facility] | value) | unknown) | | | | | [facility] | | | | + + + + +---------+ + + + + | Result panel 8 | + + + + + + +---------+ + + | (unknown) | (no date) | (unknown) | [facility] (no | (units | (unknown) | | [facility] | value) | unknown) | | | | | [facility] | | | | + + + + +---------+ + + + + | Result panel 9 | + + + + + + +---------+ + + | (unknown) | (no date) | (unknown) | [facility] (no | (units | (unknown) | | | [facility] | value) | unknown) | | | | | [facility] | | | | + + + + +---------+ + + + + | Result panel 10 | + + + + + + +---------+ + + | (unknown) | (no date) | (unknown) | [facility] (no | (units | (unknown) | | | [facility] | value) | unknown) | | | | | [facility] | | | | + + + + +---------+ + + + + | Result panel 11 | + + + + + + +---------+ + + | (unknown) | (no date) | (unknown) | [facility] (no | (units | (unknown) | | | [facility] | value) | unknown) | | | | | [facility] | | | | + + + + +---------+ + + + + | Result panel 12 | + + + + + + +---------+ + + | (unknown) | (no date) | (unknown) | [facility] (no | (units | (unknown) | [facility] | [facility] | value) | unknown) | | | | | [facility] | | | | + + + + +---------+ + + + + | Result panel 13 | + + + + + + +---------+ + + | (unknown) | (no date) | (unknown) | [facility] | (no | (units | (unknown) | | | | [facility] | value) | unknown) | | | | | [facility] | | | | + + + + +---------+ + + + + | Result panel 14 | + + + + + + +---------+ + + | (unknown) | (no date) | (unknown) | [facility] (no | (units | (unknown) | | | [facility] | value) | unknown) | | | | [facility] | | | | + + + + +---------+ + + + + | Result panel 15 | + + + + + + +---------+ + + | (unknown) | (no date) | (unknown) | [facility] | (no | (units | (unknown) | | | [facility] | value) | unknown) | | | | | [facility] | | | | + + + + +---------+ + + + + | Result panel 16 | + + + + + + +---------+ + + | (unknown) | (no date) | (unknown) | [facility] | (no | (units | (unknown) | | | | [facility] | value) | unknown) | | | | | [facility] | | | | + + + + +---------+ + + + + | Result panel 17 | + + + + + + +---------+ + + | (unknown) | (no date) | (unknown) | [facility] (no | (units | (unknown) | | | [facility] | value) | unknown) | | | | [facility] | | | | + + + + +---------+ + + + + | Result panel 18 | + + + + + + +---------+ + + | (unknown) | (no date) | (unknown) | [facility] (no | (units | (unknown) | | | [facility] | value) | unknown) | | | | | [facility] | | | | + + + + +---------+ + + + + | Result panel 19 | + + + + + + +---------+ + + | (unknown) | (no date) | (unknown) | [facility] (no | (units | (unknown) | | | [facility] | value) | unknown) | | | | [facility] | | | | + + + + +---------+ + + + + | Result panel 20 | + + + + + + +---------+ + + | (unknown) | (no date) | (unknown) | [facility] (no | (units | (unknown) | | | [facility] | value) | unknown) | | | | | [facility] | | | | + + + + +---------+ + + + + | Result panel 21 | + + + + + + +---------+ + + | (unknown) | (no date) | (unknown) | [facility] (no | (units | (unknown) | | [facility] | value) | unknown) | | | | | [facility] | | | | + + + + +---------+ + + + + | Result panel 22 | + + + + + + +---------+ + + | (unknown) | (no date) | (unknown) | [facility] | (no | (units | (unknown) | | | [facility] | value) | unknown) | | | | | [facility] | | | | + + + + +---------+ + + + + | Result panel 23 | + + + + + + +---------+ + + | (unknown) | (no date) | (unknown) | [facility] | (no | (units | (unknown) | | | | [facility] | value) | unknown) | | | | | [facility] | | | | + + + + +---------+ + + + + | Result panel 24 | + + + + + + +---------+ + + | (unknown) | (no date) | (unknown) | [facility] (no | (units | (unknown) | | | [facility] | value) | unknown) | | | | | [facility] | | | | + + + + +---------+ + + + + | Result panel 25 | + + + + + + +---------+ + + | (unknown) | (no date) | (unknown) | [facility] | (no | (units | (unknown) | | | [facility] | value) | unknown) | | | | | [facility] | | | | + + + + +---------+ + + + + | Result panel 26 | + + + + + + +---------+ + + | (unknown) | (no date) | (unknown) | [facility] | (no | (units | (unknown) | [facility] | [facility] | value) | unknown) | | | | [facility] | | | | + + + + +---------+ + + + + | Result panel 27 | + + + + + + +---------+ + + | (unknown) | (no date) | (unknown) | [facility] | (no | (units | (unknown) | | | [facility] | value) | unknown) | | | | | [facility] | | | | + + + + +---------+ + + + + | Result panel 28 | + + + + + + +---------+ + + | (unknown) | (no date) | (unknown) | [facility] | (no | (units | (unknown) | | | [facility] | value) | unknown) | | | | | [facility] | | | | + + + + +---------+ + + + + | Result panel 29 | + + + + + + +---------+ + + | (unknown) | (no date) | (unknown) | [facility] | (no | (units | (unknown) | | | | [facility] | value) | unknown) | | | | | [facility] | | | | + + + + +---------+ + + + + | Result panel 30 | + + + + + + +---------+ + + | (unknown) | (no date) | (unknown) | [facility] | (no | (units | (unknown) | | | [facility] | value) | unknown) | | | | | [facility] | | | | + + + + +---------+ + + + + | Result panel 31 | + + + + + + +---------+ + + | (unknown) | (no date) | (unknown) | [facility] | (no | (units | (unknown) | | | [facility] | value) | unknown) | | | | [facility] | | | | + + + + +---------+ + + + + | Result panel 32 | + + + + + + +---------+ + + | (unknown) | (no date) | (unknown) | [facility] | (no | (units | (unknown) | | | [facility] | value) | unknown) | | | | [facility] | | | | + + + + +---------+ + + + + | Result panel 33 | + + + + + + +---------+ + + | (unknown) | (no date) | (unknown) | [facility] | (no | (units | (unknown) | | | | [facility] | value) | unknown) | | | | [facility] | | | | + + + + +---------+ + + + + | Result panel 34 | + + + + + + +---------+ + + | (unknown) | (no date) | (unknown) | [facility] | (no | (units | (unknown) | | | [facility] | value) | unknown) | | | | [facility] | | | | + + + + +---------+ + + + + | Result panel 35 | + + + + + + +---------+ + + | (unknown) | (no date) | (unknown) | [facility] | (no | (units | (unknown) | | | [facility] | value) | unknown) | | | | [facility] | | | | + + + + +---------+ + + + + | Result panel 36 | + + + + + + +---------+ + + | (unknown) | (no date) | (unknown) | [facility] | (no | (units | (unknown) | | | [facility] | value) | unknown) | | | | | [facility] | | | | + + + + +---------+ + + + + | Result panel 37 | + + + + + + +---------+ + + | (unknown) | (no date) | (unknown) | [facility] | (no | (units | (unknown) | | | [facility] | value) | unknown) | | | | | [facility] | | | | + + + + +---------+ + + + + | Result panel 38 | + + + + + + +---------+ + + | (unknown) | (no date) | (unknown) | [facility] | (no | (units | (unknown) | | | [facility] | value) | unknown) | | | | [facility] | | | | + + + + +---------+ + + + + | Result panel 39 | + + + + + + +---------+ + + | (unknown) | (no date) | (unknown) | [facility] | (no | (units | (unknown) | | | [facility] | value) | unknown) | | | | | [facility] | | | | + + + + +---------+ + + + + | Result panel 40 | + + + + + + +---------+ + + | (unknown) | (no date) | (unknown) | [facility] | (no | (units | (unknown) | | | [facility] | value) | unknown) | | | | [facility] | | | | + + + + +---------+ + + + + | Result panel 41 | + + + + + + +---------+ + + | (unknown) | (no date) | (unknown) | [facility] | (no | (units | (unknown) | | | [facility] | value) | unknown) | | | | | [facility] | | | | + + + + +---------+ + + + + | Result panel 42 | + + + + + + +---------+ + + | (unknown) | (no date) | (unknown) | [facility] | (no | (units | (unknown) | | | [facility] | value) | unknown) | | | | | [facility] | | | | + + + + +---------+ + + + + | Result panel 43 | + + + + + + +---------+ + + | (unknown) | (no date) | (unknown) | [facility] | (no | (units | (unknown) | | | [facility] | value) | unknown) | | | | [facility] | | | | + + + + +---------+ + + + + | Result panel 44 | + + + + + + +---------+ + + | (unknown) | (no date) | (unknown) | [facility] | (no | (units | (unknown) | | | [facility] | value) | unknown) | | | | | [facility] | | | | + + + + +---------+ + + + + | Result panel 45 | + + + + + + +---------+ + + | (unknown) | (no date) | (unknown) | [facility] | (no | (units | (unknown) | | | [facility] | value) | unknown) | | | | [facility] | | | | + + + + +---------+ + + + + | Result panel 46 | + + + + + + +---------+ + + | (unknown) | (no date) | (unknown) | [facility] | (no | (units | (unknown) | | | [facility] | value) | unknown) | | | | [facility] | | | | + + + + +---------+ + + + + | Result panel 47 | + + + + + + +---------+ + + | (unknown) | (no date) | (unknown) | [facility] | (no | (units | (unknown) | | | [facility] | value) | unknown) | | | | [facility] | | | | + + + + +---------+ + + + + | Result panel 48 | + + + + + + +---------+ + + | (unknown) | (no date) | (unknown) | [facility] | (no | (units | (unknown) | | | [facility] | value) | unknown) | | | | [facility] | | | | + + + + +---------+ + + + + | Result panel 49 | + + + + + + +---------+ + + | (unknown) | (no date) | (unknown) | [facility] | (no | (units | (unknown) | | | [facility] | value) | unknown) | | | | [facility] | | | | + + + + +---------+ + + Social History No information. Vital Signs + + + +---------+ | date | measurement | value | units | + + + +---------+ | 2022-07-31 00:00 | BMI | 18.7 | kg/m2 | + + + +---------+ | 2022-07-31 00:00 | BP_diastolic | 76 | mmHg | + + + +---------+ | 2022-07-31 00:00 | BP_systolic | 130 | mmHg | + + + +---------+ | 2022-07-31 00:00 | heart_rate | 64 | /min | + + + +---------+ | 2022-07-31 00:00 | height_metric | 175.26 | cm | + + + +---------+ | 2022-07-31 00:00 | height_standard | 69 | in | + + + +---------+ | 2022-07-31 00:00 | o2_saturation | 100 | % | + + + +---------+ | 2022-07-31 00:00 | respiration_rate | 15 | /min | + + + +---------+ | 2022-07-31 00:00 | temperature_metric | 36.94 | C | | | | | | + + + +---------+ | 2022-07-31 00:00 | | 98.5 | F | | | temperature_standar | | | | | d | | | + + + +---------+ | 2022-07-31 00:00 | weight_metric | 57.29 | kg | + + + +---------+ | 2022-07-31 00:00 | weight_standard | 126.3 | lb | + + + +---------+"
--- OUTSIDE RECORDS SUMMARY | 2023-03-31 10:15 | XMS ---
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 Care History Medical/Surgical 09/24/2021 [facility] Patient had a walk in appt on 09/17/2021 with Angeline James that he did not show up for. No further appts scheduled 05/19/2020 [facility] Patient admitted for observation.\T\nbsp; Has scheduled follow up with PCP Dr. Hernandez on 03/18/2020 [facility] Patient has follow up with Dr. Hernandez on 03/25/2020 Dat VISIT COUNT (12 MO.) 2 [facility] [place] TOTAL 2 NOTE: Visits indicate total known visits. ED/UCC VISIT TRACKING (12 MO.) [facility]23 [facility] [place] [facility] COMPLAINT: - DIFFICULTY SWALLOWING 07/31/2022 14:[address] [facility] [place] TYPE: Emergency COMPLAINT: - DEHYDRATION DIAGNOSES: - Acute pharyngitis, unspecified - Allergy status to penicillin - Dehydration - Essential (primary) hypertension - Other nonmedicinal substance allergy status - Personal history of nicotine dependence - Personal history of transient ischemic attack (TIA), and cerebral infarction without residual deficits - Pure hypercholesterolemia, unspecified INPATIENT VISIT TRACKING (12 MO.) No inpatient visits to display in this time frame [id number]
[2023-03-31] MEDS ORDERED: REPATHA SY140 MG/1 M SUB-Q (10:30)
[2023-03-31 14:07] VITALS: BP 140/82
== END 2023-03-31 14:07 | disposition home or self-care (01) ==
LOC: ED 10:10
DX: R13.10 Dysphagia, unspecified (principal); I10 Essential (primary) hypertension; Z86.73 Personal history of transient ischemic attack (TIA), and cerebral infarction without residual deficits; Z95.1 Presence of aortocoronary bypass graft; Z88.0 Allergy status to penicillin; Z88.8 Allergy status to other drugs, medicaments and biological substances
CPT/HCPCS: 36415; 71045; 74230; 80053; 85025; 99284 25; J7040

== ENCOUNTER 2023-08-07 17:15 | Emergency (ER) | payer MEDICARE, OTHER ==
[~2023-08-07] VITALS: Ht 175.3 cm; Wt 60.0 kg
[~2023-08-07 17:15] MED LIST changes: +KETOCONAZOLE120 ML TOP; +PANTOPRAZOLE SO40 M2 PO; +REPATHA SY140 MG/1 M SUB-Q; +TRANSDERM-SCOP1 EACH TD
[2023-08-07 17:49] LABS: BASOPHILS 0.4 % (0-2); EOSINOPHILS 1.8 % (0-6); HEMATOCRIT 47.1 % (35.0-50.0); LYMPHOCYTES 14.9 % (24-44); MCH 33.3 (27-36); MCHC 33.9 g/dl (30-36); MCV 98.2 fl (81-99); MONOCYTES 10.4 % (0-12); NEUTROPHILS 72.5 % (39-80); PLATELET COUNT 172 K/uL (140-440); RDW 13.3 (10.5-15.0)
[2023-08-07 18:07] LABS: ALBUMIN 3.6 g/dL (3.4-5.0); ALBUMIN/GLOBULIN RATIO 1.09 (1.1-2.4); ANION GAP 9.5 (7-21); BILIRUBIN, TOTAL 0.7 ng/dL (0.2-1.0); BUN/CREATININE RATIO 22.22 (6.0-28.6); CALCIUM 9.4 mg/dL (8.5-10.1); CREATININE, SERUM 1.08 mg/dL (0.70-1.30); PHOSPHORUS, INORGANIC 3.5 mg/dL (2.5-4.9); POTASSIUM 4.5 mmol/L (3.5-5.1); PROTEIN, TOTAL 6.9 g/dL (6.4-8.2)
[2023-08-07 19:08] VITALS: BP 120/80
== END 2023-08-07 19:08 | disposition home or self-care (01) ==
LOC: ED 17:15
PROVIDERS: Internal Medicine
DX: I69.991 Dysphagia following unspecified cerebrovascular disease (principal); E86.0 Dehydration; R53.1 Weakness; I10 Essential (primary) hypertension; I25.10 Atherosclerotic heart disease of native coronary artery without angina pectoris; Z95.1 Presence of aortocoronary bypass graft; Z87.891 Personal history of nicotine dependence; Z88.0 Allergy status to penicillin; Z88.8 Allergy status to other drugs, medicaments and biological substances; Z79.899 Other long term (current) drug therapy
CPT/HCPCS: 36415; 80053; 83735; 84100; 85025; J7030

== ENCOUNTER 2023-08-11 12:44 | Emergency (ER) | payer MEDICARE, OTHER ==
[~2023-08-11] VITALS: Ht 175.3 cm; Wt 60.0 kg
--- OUTSIDE RECORDS SUMMARY | 2023-08-11 12:48 | XMS ---
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 Care History Medical/Surgical 09/24/2021 [facility] Patient had a walk in appt on 09/17/2021 with Angeline James that he did not show up for. No further appts scheduled 05/19/2020 [facility] Patient admitted for observation.\T\[facility]; Has scheduled follow up with PCP Dr. Hernandez on 03/18/2020 [facility] Patient has follow up with Dr. Hernandez on 03/25/2020 [facility] V[facility] (12 MO.) [facility] NOTE: Visits indicate total known visits. ED/UCC VISIT TRACKING (12 MO.) 08[facility]11[facility]23 12:[facility] [facility] Emergency COMPLAINT: - WEAK, SHAKY, WOBBLY 08/07/2023 17:15 [facility] [place] TYPE: Emergency COMPLAINT: - WEAKNESS DIAGNOSES: - Allergy status to other drugs, medicaments and biological substances - Allergy status to penicillin - Atherosclerotic heart disease of [place] coronary artery without angina pectoris - Dehydration - Dysphagia following unspecified cerebrovascular disease - Essential (primary) hypertension - Other snf (current) drug therapy - Personal history of nicotine dependence - Presence of aortocoronary bypass graft - Weakness 06/07/2023 16:29 [facility] [place] TYPE: Emergency COMPLAINT: - SWALLOWING PROBLEM DIAGNOSES: - Allergy status to other drugs, medicaments and biological substances - Allergy status to penicillin - Dysphagia following unspecified cerebrovascular disease - Dysphagia, unspecified - Essential (primary) hypertension - 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 [place] TYPE: Emergency COMPLAINT: - DIFFICULTY SWALLOWING DIAGNOSES: - Allergy status to other drugs, medicaments and biological substances - Allergy status to penicillin - Disturbances of salivary secretion - Dysphagia, unspecified - Essential (primary) hypertension - Personal history of transient ischemic attack (TIA), and cerebral infarction without residual deficits - Presence of aortocoronary bypass graft INPATIENT VISIT TRACKING (12 MO.) No inpatient visits to display in this time frame [email or web address]
[2023-08-11 13:11] LABS: EOSINOPHILS 0.7 % (0-6); HEMATOCRIT 46.6 % (35.0-50.0); HEMOGLOBIN 15.4 g/dL (12.0-18.0); LYMPHOCYTES 10.9 % (24-44); MCH 32.4 (27-36); MCHC 33.1 g/dl (30-36); MCV 97.8 fl (81-99); NEUTROPHILS 79.4 % (39-80); PLATELET COUNT 169 K/uL (140-440); RBC 4.76 M/ul (4.3-5.7); RDW 13.4 (10.5-15.0)
[2023-08-11 13:26] LABS: ALBUMIN 3.2 g/dL (3.4-5.0); ANION GAP 12.4 (7-21); BILIRUBIN, TOTAL 0.8 ng/dL (0.2-1.0); BUN/CREATININE RATIO 22.42 (6.0-28.6); CALCIUM 8.9 mg/dL (8.5-10.1); CREATININE, SERUM 1.07 mg/dL (0.70-1.30); MAGNESIUM 1.9 mg/dL (1.8-2.4); POTASSIUM 4.4 mmol/L (3.5-5.1); PROTEIN, TOTAL 6.4 g/dL (6.4-8.2)
[2023-08-11 14:00] LABS: BILIRUBIN, URINE NEGATIVE (negative); BLOOD/HGB, URINE NEGATIVE (Negative); KETONE, URINE NEGATIVE (Negative); LEUK ESTERASE, URINE NEGATIVE (negative); NITRITE, URINE NEGATIVE (negative)
[2023-08-11 15:03] VITALS: BP 137/79
== END 2023-08-11 15:04 | disposition home or self-care (01) ==
LOC: ED 12:44
PROVIDERS: Emergency Medicine
DX: R53.1 Weakness (principal); I10 Essential (primary) hypertension; E78.00 Pure hypercholesterolemia, unspecified; Z87.891 Personal history of nicotine dependence; Z88.0 Allergy status to penicillin; Z88.8 Allergy status to other drugs, medicaments and biological substances; Z79.899 Other long term (current) drug therapy
CPT/HCPCS: 36415; 80053; 81003; 83735; 85025; 99284; J7030

== ENCOUNTER 2023-09-24 10:28 | Emergency (ER) | payer MEDICARE, OTHER ==
[~2023-09-24] VITALS: Ht 175.3 cm; Wt 60.3 kg
[2023-09-24 11:21] LABS: BASOPHILS 0.2 % (0-2); EOSINOPHILS 0.8 % (0-6); HEMATOCRIT 46.8 % (35.0-50.0); HEMOGLOBIN 15.5 g/dL (12.0-18.0); LYMPHOCYTES 6.9 % (24-44); MCH 32.5 (27-36); MCHC 33.2 g/dl (30-36); MCV 97.9 fl (81-99); MONOCYTES 7.1 % (0-12); PLATELET COUNT 149 K/uL (140-440); RBC 4.78 M/ul (4.3-5.7); RDW 13.1 (10.5-15.0)
[2023-09-24 11:39] LABS: ALBUMIN 3.3 g/dL (3.4-5.0); ALBUMIN/GLOBULIN RATIO 1.06 (1.1-2.4); ANION GAP 10.5 (7-21); BILIRUBIN, TOTAL 0.8 ng/dL (0.2-1.0); BUN/CREATININE RATIO 17.69 (6.0-28.6); CALCIUM 8.8 mg/dL (8.5-10.1); CREATININE, SERUM 1.13 mg/dL (0.70-1.30); MAGNESIUM 1.9 mg/dL (1.8-2.4); POTASSIUM 4.5 mmol/L (3.5-5.1); PROTEIN, TOTAL 6.4 g/dL (6.4-8.2)
[2023-09-24 13:35] VITALS: BP 133/76
== END 2023-09-24 13:42 | disposition home or self-care (01) ==
LOC: ED 10:28
PROVIDERS: Emergency Medicine
DX: K22.2 Esophageal obstruction (principal); I10 Essential (primary) hypertension; Z86.73 Personal history of transient ischemic attack (TIA), and cerebral infarction without residual deficits; Z87.891 Personal history of nicotine dependence; Z88.0 Allergy status to penicillin; Z88.8 Allergy status to other drugs, medicaments and biological substances; Z95.1 Presence of aortocoronary bypass graft
CPT/HCPCS: 36415; 80053; 83735; 85025; 99284; J7030